=== PATIENT | male | born 1960 | race Caucasian/White ===

== ENCOUNTER 2019-12-04 13:10 | Outpatient (CLI) | payer MEDICARE, SELFPAY ==
--- NOTE | ~2019-12-04 | XR_ITS ---
EXAMINATION: XR chest 2V DATE: 12/04/2019 13:37 INDICATION: Cough. TECHNIQUE: Frontal and lateral views of the chest were obtained. COMPARISON: None. FINDINGS: The chest demonstrates clear lungs without pneumonia, pleural effusion, or pneumothorax. Th e heart size is normal. IMPRESSION: 1. No acute cardiopulmonary disease. Reviewed, dictated and finalized at location A.
== END 2019-12-04 13:11 | disposition home or self-care (01) ==
PROVIDERS: PCP Internal Medicine; Visit Provider Internal Medicine
DX: R05 Cough (principal)
CPT/HCPCS: 71046

== ENCOUNTER 2021-09-24 09:29 | Emergency (ER) | payer MEDICARE, SELFPAY ==
--- NOTE | ~2021-09-24 | XR_ITS ---
EXAMINATION: XR chest 2V DATE: 09/24/2021 10:22 INDICATION: Productive cough. TECHNIQUE: Frontal and lateral views of the chest were obtained. COMPARISON: Chest 2 views 12/04/2019 FINDINGS: There are mild airspace opacities in the mid and lower lung zones. No pleural effusion or p neumothorax. The heart size is normal. There is mild chronic anterior wedging of T12 and L1 vertebral bodies. IMPRESSION: 1. Mild airspace opacities in the mid and lower lung zones, consistent with atelectasis versus pneumo kameron. Reviewed, dictated and finalized at location A. IMPRESSION: 1. Mild airspace opacities in the mid and lower lung zones, consistent with ate lectasis versus pneumonia.
[2021-09-24 09:37] VITALS: BP 129/87; PULSE 79; RESP 18; TEMP 36.3; O2SAT 97
--- NOTE | 2021-09-24 10:38 | ED.URI ---
HPI - URI/Sore Throat General Chief Complaint: Upper Respiratory Infection Stated Complaint: Cough Time Seen by Provider: 09/24/21 10:06 Source: patient and RN notes reviewed Mode of arrival: ambulatory Limitations: no limitations History of Present Illness HPI Narrative: Patient presents today complaining of a 4-day history of productive cough with yellow sputum, nasal congestion, fatigue. Denies fever or shortness of breath. He has been using Tylenol, NyQuil, Robitussin, Flonase and Tessalon Perles with minimal relief. He has not been vaccinated against COVID-19 or influenza. He was seen at a different urgent care on day of onset of symptoms and given prescription for the Flonase and Tessalon Perles. MD elicited complaint: cough Related Data Home Medications Medication Instructions Recorded Confirmed aspirin 325 mg PO DAILY 09/24/21 09/24/21 benzonatate 200 mg PO TID PRN 09/24/21 09/24/21 brimonidine 1 drp RIGHT EYE BID 09/24/21 09/24/21 celecoxib 200 mg PO BID 09/24/21 09/24/21 fluticasone propionate 1 spray INTRANASAL BID 09/24/21 09/24/21 metoprolol succinate 100 mg PO DAILY 09/24/21 09/24/21 pravastatin 10 mg PO DAILY 09/24/21 09/24/21 timolol maleate 1 drp RIGHT EYE BID 09/24/21 09/24/21 Allergies Allergy/AdvReac Type Severity Reaction Status Date / Time No Known Allergies Allergy Verified 09/24/21 10:13 Review of Systems Review of Systems: CONSTITUTIONAL: Denies body aches, fever, chills, or sweats.+ Fatigue EYES: Denies visual changes, redness, or discharge. ENT: Denies rhinorrhea, sore throat, or otalgia.+ Congestion CARDIOVASCULAR: Denies chest pain, palpitations, or edema. RESPIRATORY: Denies dyspnea.+ Cough GASTROINTESTINAL: Denies abdominal pain, nausea, vomiting, or diarrhea. GENITOURINARY: Denies dysuria or hematuria. SKIN: Denies rash, itching, or wounds. MUSCULOSKELETAL: Denies back pain, joint pain, or myalgia. NEUROLOGIC: Denies headache, numbness, tingling, or weakness. PSYCH: Denies depression or anxiety. [facility] Past Medical History Medical History (Updated 09/24/21 @ 10:43 by Jennifer Jane, [facility], ) High cholesterol Comments At time of signature, I have reviewed and agree with nursing past medical, surgical, social and family history unless otherwise noted. Please see nursing chart for further information. There is no relevant family history pertinent to the presenting complaint Exam Narrative: GENERAL: Well-appearing, well-nourished, and in no acute distress. HEAD: Normocephalic, atraumatic. EYES: EOMI. No redness or drainage. Conjunctivae normal. ENT: Mucous membranes pink and moist. Nares clear. No rhinorrhea. TMs normal bilaterally. Throat normal. Uvula midline. NECK: Normal AROM. Supple. No lymphadenopathy. CHEST: No respiratory distress. Clear to auscultation. HEART: Regular rate and rhythm. No murmur appreciated. Normal peripheral pulses. EXTREMITIES: Normal range of motion. No edema. SKIN: Warm, dry, no rash. Capillary refill normal. Normal skin turgor. NEURO: No focal deficits. Alert and oriented x3. Gait steady. PSYCH: Normal affect. No signs of depression or anxiety. Course Course Level of Care: Express Care Visit Vital Signs Vital signs: Vital Signs Temperature 97.4 F L 09/24/21 09:37 Pulse Rate 79 09/24/21 09:37 Respiratory Rate 18 09/24/21 09:37 Blood Pressure 129/87 09/24/21 09:37 Pulse Oximetry 97 09/24/21 09:37 Temperature 97.4 F L 09/24/21 09:37 Pulse Rate 79 09/24/21 09:37 Respiratory Rate 18 09/24/21 09:37 Blood Pressure 129/87 09/24/21 09:37 Pulse Oximetry 97 09/24/21 09:37 Reviewed. Pt has been instructed to follow up with his PCP regarding his elevated blood pressure today. MDM - URI/Sore Throat Differential Diagnosis Differential diagnosis: Likely upper respiratory infection, bronchitis and other (Pneumonia) Imaging Data Radiologist's impression: ITS Impressions Chest X-Ray 09/24/21 10:22
== END 2021-09-24 10:50 | disposition home or self-care (01) ==
PROVIDERS: Emergency Provider Nurse Practitioner; PCP Internal Medicine
DX: J18.9 Pneumonia, unspecified organism (principal); E78.00 Pure hypercholesterolemia, unspecified; Z79.82 Long term (current) use of aspirin; Z28.310 Unvaccinated for COVID-19
CPT/HCPCS: 71046; 99213; G0463

== ENCOUNTER 2022-02-09 12:05 | Emergency (ER) | payer MEDICARE, SELFPAY ==
--- NOTE | ~2022-02-09 | XR_ITS ---
EXAMINATION: XR foot RT min 3V DATE: 02/09/2022 12:35 INDICATION: Right foot injury. TECHNIQUE: 4 views of right foot were obtained. COMPARISON: None. FINDINGS: There is moderate hallux valgus. No fracture. There is severe osteoarthritis of first metat arsophalangeal joint and mild osteoarthritis of talonavicular joint. There are enthesophytes at the p osterior and plantar aspects of calcaneal tuberosity. IMPRESSION: 1. Polyarticular osteoarthritis. 2. Moderate hallux valgus. Reviewed, dictated and finalized at location A.
--- NOTE | ~2022-02-09 | XR_ITS ---
EXAMINATION: XR tibia fibula RT 2V DATE: 02/09/2022 12:35 INDICATION: Right lower leg injury. TECHNIQUE: 2 views of right tibia and fibula on 4 radiographs were obtained. COMPARISON: None. FINDINGS: Bone alignment is normal. No fracture. There is moderate right knee osteoarthritis. There a re enthesophytes at the posterior and plantar aspects of calcaneal tuberosity. There is soft tissue s welling anterior to tibial diaphysis. No knee joint effusion. IMPRESSION: 1. No fracture. Reviewed, dictated and finalized at location A. IMPRESSION: 1. No fracture.
[2022-02-09 12:10] VITALS: BP 128/87; PULSE 66; RESP 20; TEMP 36.2; O2SAT 98
--- NOTE | 2022-02-09 12:11 | ED.LOWEXIN ---
HPI - Extremity Injury (Lower) General Chief Complaint: Extremity Injury, Lower Stated Complaint: Right foot and toe pain Time Seen by Provider: 02/09/22 12:12 Source: patient and RN notes reviewed History of Present Illness HPI Narrative: Patient is a 61-year-old male who presents the urgent care with complaints of right foot and right lower leg pain. Patient states her right foot pain has been ongoing for several months. States that he jammed his foot into his suitcase while getting off the escalator 5 or 6 days ago and is now having increased pain and swelling. Patient states the pain radiates up his right lower leg. Patient states pain is exacerbated with ambulation or any weightbearing. He has been taking Aleve for pain as well as icing and elevating. No other acute complaints. Denies any history of DVT, shortness of breath or chest pain. No acute distress noted. Patient aware of the plan of care. Some parts of this dictation were generated by voice recognition software and may contain typographical and/or grammatical inaccuracies. Related Data Home Medications Medication Instructions Recorded Confirmed aspirin 325 mg tablet 325 mg PO DAILY 09/24/21 02/09/22 brimonidine 0.2 % eye drops 1 drp RIGHT EYE BID 09/24/21 02/09/22 celecoxib 200 mg capsule 200 mg PO BID 09/24/21 02/09/22 fluticasone propionate 50 1 spray intranasal BID 09/24/21 02/09/22 mcg/actuation nasal spray,suspension metoprolol succinate 100 mg 100 mg PO DAILY 09/24/21 02/09/22 tablet,extended release 24 hr pravastatin 10 mg tablet 10 mg PO DAILY 09/24/21 02/09/22 timolol maleate 0.5 % eye drops 1 drp RIGHT EYE BID 09/24/21 02/09/22 Allergies Allergy/AdvReac Type Severity Reaction Status Date / Time No Known Allergies Allergy Verified 02/09/22 12:12 Review of Systems Review of Systems: CONSTITUTIONAL: Denies fever, chills, or sweats. EYES: Denies visual changes, redness, or discharge. ENT: Denies rhinorrhea, congestion, sore throat, or otalgia. CARDIOVASCULAR: Denies chest pain, palpitations, or edema. RESPIRATORY: Denies cough or dyspnea. GASTROINTESTINAL: Denies abdominal pain, nausea, vomiting, or diarrhea. GENITOURINARY: Denies dysuria or hematuria. SKIN: Denies rash or itching. MUSCULOSKELETAL: Reports of right foot and right lower leg pain NEUROLOGIC: Denies headache, numbness, or weakness. All other systems reviewed are negative, except as documented in HPI. [facility] Past Medical History Medical History (Updated 02/09/22 @ 12:45 by CELY Caba) High cholesterol Comments At the time of my signature, I reviewed and agree with the nursing past medical, surgical, social, and family history. There is no relevant family history pertinent to the patient complaint. Exam Narrative: GENERAL: This is a well-nourished, well-developed patient, in no apparent distress. HEAD: normocephalic, atraumatic. EYES: PERRL. Sclera clear/white. Vision is grossly intact. EARS: External ears normal NOSE: External nose normal with no obvious nasal discharge, nares without redness, no rhinorrhea. THROAT: Mucous membranes moist NECK: Neck supple CARDIOVASCULAR: Regular rate and rhythm without murmurs, gallops, or rubs. SKIN: warm, intact with no suspicious lesions or rash, good texture and turgor. NEURO: awake, alert, and oriented to person, place and time. There were no obvious focal neurologic abnormalities. EXTREMITIES: Mild localized tenderness with a 2 cm mildly edematous hematoma to the right tibia. Mild 1+ pitting edema to right lower extremity with moderate pain to the MCP without erythema or obvious deformity. Positive strong right pedal pulse with capillary refill less than 2 seconds. Course Course Level of Care: Express Care Visit Vital Signs Vital signs: Vital Signs Temperature 97.1 F L 02/09/22 12:10 Pulse Rate 66 02/09/22 12:10 Respiratory Rate 20 02/09/22 12:10 Blood Pressure 128/87 02/09/22 12:10 Pulse Ox
== END 2022-02-09 12:51 | disposition home or self-care (01) ==
PROVIDERS: Emergency Provider Nurse Practitioner Family
DX: M19.071 Primary osteoarthritis, right ankle and foot (principal); E78.00 Pure hypercholesterolemia, unspecified
CPT/HCPCS: 73590; 73630; 99214; G0463

== ENCOUNTER 2023-03-08 15:15 | Emergency (ER) | payer MEDICARE, SELFPAY ==
--- NOTE | ~2023-03-08 | XR_ITS ---
EXAMINATION: XR shoulder RT min 2V INDICATION: Right shoulder pain TECHNIQUE: Four views of the right shoulder are submitted. COMPARISON: None FINDINGS: Normal alignment. No fracture. There is moderate glenohumeral and acromioclavicular joint o steoarthritis. Soft tissues are unremarkable. IMPRESSION: 1. Osteoarthritis without acute osseous abnormality. Reviewed, dictated and finalized at location B.
[2023-03-08 15:28] VITALS: BP 130/76; PULSE 40; RESP 16; TEMP 36.2; O2SAT 98
--- NOTE | 2023-03-08 16:26 | ED.GENADULT ---
HPI - General Adult General Chief complaint: Extremity Injury, Upper Stated complaint: Right Shoulder Pain Time Seen by Provider: 03/08/23 15:55 Source: patient, RN notes reviewed and old records reviewed Mode of arrival: ambulatory Limitations: no limitations History of Present Illness HPI narrative: 62 year old male presents to [facility] with stated complaints of tingling and pain to the right arm radiating to his hand but for the past 1 to 1.5 weeks he has been having pain increase with pain in shoulder down arm and also to his right neck with intermittent tingling. Patient denies any recent or past trauma to right arm or shoulder.Patient has full ROM of his right shoulder and arm with strong pulses of his right arm and brisk capillary refill to his nail beds of right hand. Patient noted to have low pulse rate in 40's is on beta aleksandar. MD complaint: right shoulder pain Onset (ago): week(s) (increased discomfort for past 1.5 weeks.) Location: head (right shoulder and arm and right side of neck), right and upper extremity (shoulder and arm, ) Severity scale (1-10): 5 Quality: aching Pain Consistency: intermittent Treatments prior to arrival: other (tylenol and local pain rubs) Related Data Home Medications Medication Instructions Recorded Confirmed aspirin 325 mg tablet 325 mg PO DAILY 09/24/21 02/09/22 brimonidine 0.2 % eye drops 1 drp RIGHT EYE BID 09/24/21 02/09/22 celecoxib 200 mg capsule 200 mg PO BID 09/24/21 02/09/22 metoprolol succinate 100 mg 100 mg PO DAILY 09/24/21 02/09/22 tablet,extended release 24 hr pravastatin 10 mg tablet 10 mg PO DAILY 09/24/21 02/09/22 timolol maleate 0.5 % eye drops 1 drp RIGHT EYE BID 09/24/21 02/09/22 amlodipine 5 mg tablet mg 03/08/23 Allergies Allergy/AdvReac Type Severity Reaction Status Date / Time No Known Allergies Allergy Verified 02/09/22 12:12 Review of Systems Review of Systems: CONSTITUTIONAL: Denies fever, chills, or sweats. EYES: Denies visual changes, redness, or discharge. ENT: Denies rhinorrhea, congestion, sore throat, or otalgia. CARDIOVASCULAR: Denies chest pain, palpitations, or edema.low pulse rate noted. RESPIRATORY: Denies cough or dyspnea. GASTROINTESTINAL: Denies abdominal pain, nausea, vomiting, or diarrhea. GENITOURINARY: Denies dysuria or hematuria. SKIN: Denies rash or itching. MUSCULOSKELETAL: Denies back pain,positive for right shoulder and arm pain and pain to right side of neck at times, or myalgia. NEUROLOGIC: Denies headache, numbness, or weakness. PSYCHIATRIC: Denies anxiety or depression. All systems reviewed & are unremarkable except as noted in HPI and below PMFSH Past Medical History Medical History (Updated 03/09/23 @ 20:58 by Asya Cabrera NP) Arthritis COVID-19 03/2021 Glaucoma High cholesterol Hypertension Surgical History Surgical History (Updated 03/09/23 @ 20:53 by Asya Cabrera NP) H/O lumbosacral spine surgery Hx of appendectomy Social History Social History (Updated 03/09/23 @ 20:58 by Asya Cabrera NP) Smoking status: Never smoker Alcohol intake: current Alcohol use details: social Substance use type: does not use Gender identity (if verbalized by the patient): Male Comments At time of signature, agree with nursing past medical, surgical, social and family history. There is no relevant family history pertinent to the presenting complaint Exam Narrative: GENERAL: Well-appearing, well-nourished, obese,and in no acute distress. HEAD: Normocephalic, atraumatic. EYES: PERRLA and EOMI. ENT: Nares clear, no rhinorrhea or epistaxis. Mucous membranes moist.TM's normal with good light reflex, throat pink with no swelling NECK: Supple. able to move neck in all directions, no lymphadenopathy CHEST: Clear to auscultation. No respiratory distress. SAO2 98% on room air HEART: Regular rate and rhythm. No murmur heard. Normal peripheral pulses. Bradycardia ABDOMEN: Soft, nontender, n
== END 2023-03-08 16:48 | disposition home or self-care (01) ==
PROVIDERS: Emergency Provider Registered Nurse; PCP Internal Medicine
DX: M19.011 Primary osteoarthritis, right shoulder (principal); H40.9 Unspecified glaucoma; E78.00 Pure hypercholesterolemia, unspecified; I10 Essential (primary) hypertension; Z86.16 Personal history of COVID-19
CPT/HCPCS: 73030; 99213; G0463

== ENCOUNTER 2024-06-18 12:38 | Emergency (ER) | payer MEDICARE, SELFPAY ==
--- NOTE | ~2024-06-18 | XR_ITS ---
EXAMINATION: XR tibia fibula RT 2V DATE: 06/18/2024 13:26 INDICATION: Right lower leg pain post fall TECHNIQUE: AP and lateral views of the right lower leg were obtained on overlapping proximal and dist al images. COMPARISON: None. FINDINGS: Bone alignment is normal. No fracture. Tricompartmental osteoarthritis at the right knee at least mod erate severity lateral compartment although severity could be underestimated on nonweightbearing imag ing. Additional mild polyarticular osteoarthritis at the right ankle, mid and hindfoot. Small plantar calcaneal spur. Small enthesopathic ossicle at the distal Achilles tendon. No right knee or ankle alona int effusion. Focal soft tissue swelling anterior to the mid tibia. IMPRESSION: 1. No acute osseous abnormality. Reviewed, dictated and finalized at location A. ONARY FELLOW
[2024-06-18 12:47] VITALS: BP 153/93; PULSE 79; RESP 20; TEMP 36.7; O2SAT 98
--- NOTE | 2024-06-18 13:16 | ED_ITS ---
HPI - Extremity Injury (Lower) General Chief Complaint: Extremity Injury, Lower Stated Complaint: right calf popped History of Present Illness HPI Narrative: patient is a 63-year-old male, past medical history significant for hypertension hyperlipidemia, presents to [facility] with right calf bruising that extends along the medial anterior lopez, following an injury he sustained 8 days ago when he tripped over an uneven surface. He states he felt a pop in the medial aspect of the lopez at the time of the injury however use since developed bruising that extends posteriorly along the back of calf. He takes a baby aspirin daily, no other anticoagulants are reported. He has no significant pain, denies difficulty flexing or dorsiflexing his foot. He has no pain at the Achilles insertion he denies any additional associated symptoms or modifying factors. Related Data Home Medications ?Medication ?Instructions ?Recorded ?Confirmed ?Last Taken ?Type aspirin 325 mg tablet 325 mg PO DAILY 09/24/21 02/09/22 Unknown History celecoxib 200 mg capsule 200 mg PO BID 09/24/21 02/09/22 Unknown History metoprolol succinate 100 mg 100 mg PO DAILY 09/24/21 02/09/22 Unknown History tablet,extended release 24 hr pravastatin 10 mg tablet 10 mg PO DAILY 09/24/21 02/09/22 Unknown History amlodipine 5 mg tablet mg 03/08/23 Unknown History Allergies Allergy/AdvReac Type Severity Reaction Status Date / Time No Known Allergies Allergy Verified 06/18/24 13:44 Review of Systems Musculoskeletal: Comments: refer to HPI Integumentary/Breasts: Comments: refer to HPI PMFSH Past Medical History Medical History (Updated 06/18/24 @ 13:57 by CELY Magaña) COVID-19 03/2021 Arthritis Glaucoma Hypertension High cholesterol Surgical History Surgical History (Updated 03/09/23 @ 20:53 by Asya Cabrera NP) H/O lumbosacral spine surgery Hx of appendectomy Social History Social History (Updated 03/09/23 @ 20:58 by Asya Cabrera NP) Smoking status: Never smoker Alcohol intake: current Alcohol use details: social Substance use type: does not use Gender identity (if verbalized by the patient): Male Exam Const: General: healthy appearing and no acute distress Nutritional Appearance: well nourished Orientation/consciousness: patient oriented x3 Limitations: no limitations HENMT: Head: normal to inspection Ears: external ears normal Face/Nose/Sinus: Normal external nose present Mouth: Yes Normal oral and palatal mucosa present, Yes lip normal and Yes moist mucous membranes Teeth and gingiva: dentition normal Throat: posterior oropharynx normal and uvula midline Eyes: Conjunctivae: conjunctivae normal Pupils: Equal, round and reactive pupils present EOM: EOMs intact bilaterally Direct Ophthalmoscopy: no photophobia Neck: Neck: normal visual inspection, no lymphadenopathy and no meningeal signs Resp: Effort & Inspection: normal respiratory effort Auscultation: clear to auscultation bilaterally Cardio: Rate: regular rate Rhythm: regular rhythm Back/Spine/Pelvis: Back: no CVA tenderness Skin: General skin exam: normal color Rashes: no rashes Wounds: no wounds Neuro: General: patient oriented x3, moves all extremities, no meningeal signs, no focal motor deficits and CN's II-XI intact bilaterally Cranial nerves: Yes Nystagmus not present Speech: normal speech Gait exam (Neuro): Normal gait present Extrem: General: no clubbing, cyanosis or edema and no pedal edema Other: patient has ecchymosis to the right posterior medial calf, purple in color, no palpable cords or asymmetry to the lower extremities. Patient's Achilles insertion is nontender palpation, dorsiflexion and plantar flexion of the right foot is intact Psych: Mental Status: mental status grossly normal Course Course Emergency Course: PLAIN FILMS ARE UNREMARKABLE FOR ACUTE FINDINGS, CHRONIC CHANGES are noted patient is advised a plan to treat with rest, ice, elevation, wrap with an hector wrap or compression sock, may take NSAIDs, may continue ASA, ER if calf pain or swelling increase, or with any concerns condition is worsening. Patient verbalized understanding he is agreeable plan Level of Care: Express Care Visit ([id number]) Vital Signs Vital signs: Vital Signs Temperature 36.7 C 06/18/24 12:47 Pulse Rate 79 06/18/24 12:47 Respiratory Rate 20 06/18/24 12:47 Blood Pressure 153/93 H 06/18/24 12:47 Pulse Oximetry 98 06/18/24 12:47 Oxygen Delivery Room Air 06/18/24 12:47 Temperature 36.7 C 06/18/24 12:47 Pulse Rate 79 06/18/24 12:47 Respiratory Rate 20 12/29/24 12:47 Blood Pressure 153/93 H 06/18/24 12:47 Pulse Oximetry 98 06/18/24 12:47 Oxygen Delivery Room Air 06/18/24 12:47 MDM - Extremity Injury (Lower) MDM Narrative Medical decision making narrative: negative plain films, pt advised his calf is bruised and likely related to a small focal muscle tear as he has no gross asymmetry of the lower extremities and the bruising is superficial and more medial and anterior to the lopez. He is encouraged to follow-up with his PCP, to treat conservatively in the meantime and to proceed to the ER if the area worsens for a venous duplex, as indicated. Patient verbalized understanding he is agreeable with discharge plan of care Discharge Plan Discharge Clinical Impression: Contusion of right calf Patient Disposition: Home, Self-Care Condition: Stable Instructions: Antibiotic Form, Contusion in Adults (ED) Additional Instructions: rest, ice, elevate the leg, you may wrap with a compression stocking or Hector bandage knee, you may take Tylenol and/or ibuprofen as directed [id number], you may continue home medications and follow up with your primary doctor in 3 days if symptoms not improving, ER if condition worsens, calf pain or swelling increase with any further emergency concerns Patient Language: French Prescriptions: No Action celecoxib 200 mg capsule 200 mg PO BID metoprolol succinate 100 mg tablet extended release 24 hr 100 mg PO DAILY pravastatin 10 mg tablet 10 mg PO DAILY aspirin 325 mg Tablet 325 mg PO DAILY amlodipine 5 mg tablet Follow-up/Referrals: UNKNOWN,DOCTOR [Primary Care Provider] - Time of Disposition: 13:57
--- OUTSIDE RECORDS SUMMARY | 2024-06-25 13:55 | XMS_ITS | Encounter Summary ---
Author Organization [facility] Address [address] [place] [address] Phone Care Team Providers Care Copy Clerk Name Role Phone Wendi Hawkins MD Primary Care Provider Encounter Details Date Type Department Care Team (Late st Contact Info) Description 12/29/2022 Telephone [facility] Neuro Sleep [address] [place] [address] Abdon Eisenberg, RPSGT Social History Tobacco Use Types Packs/Day Years Used Date Smoking Tobacco: Never Smokeless Tobacco: Never Alcohol Use Standard Drinks/Week Comments Yes 0 (1 standard drink = 0.6 oz pur e alcohol) AUDIT-C Answer Date Recorded Q1: How often do you have a drink containing alcohol? 4 or more times a week 04/07/2022 Q2: How many drinks containi ng alcohol do you have on a typical day when you are drinking? 1 or 2 Q3: How often do you have si x or more drinks on one occasion? 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 Gender Identity Not on file Sexual Orientation Not on file documented as of this encounter Miscellaneous Notes * Telephone Encounter - Abdon Eisenberg, RPSGT - 12/29/2022 4:47 PM CDT Calling to discuss issues patient is having with mask documented in this encounter Plan of Treatment Scheduled Procedures Name Priority Associated Diagnoses Date/Ti me COLONOSCOPY Colon cancer screening COLONOSCOPY Colon cancer screening documented as of this encounter Visit Diagnoses Not on filedocumented in this encounter Care Teams Copy Clerk Relationship Specialty Start Date End Date Wendi Hawkins MD [address] [place] [address] PCP - General Internal Medicine 09/05/21 04/27/23 documented as of this encounter
--- OUTSIDE RECORDS SUMMARY | 2024-06-25 13:55 | XMS_ITS | Clinical Summary ---
Author Organization [facility] Address [address] [place] [address] Phone Care Team Providers Care Braider Tender Name Role Phone Pal Russell MD Primary Care Provider [phone] Social History Tobacco Use Types Packs/Day Years Used Date Smoking Tobacco: Never Assessed Sex and Gender Information Value Date Recorded Sex Assigned at Not on file Legal Sex Male 10:43 PM CDT Gender Identity Not on file Sexual Orientation Not on file Plan of Treatment Health Maintenance Due Date Last Done Comments Hepatitis C Virus (HCV) Screening 1960 TdaP Immunization 1960 Colonoscopy 09/16/2004 Colorectal Cancer Screening 09/16/2004 Cologuard 09/16/2009 Immunochemical Fecal Occult Blood 09/16/2009 Zoster Immunization (1 of 2) 09/16/2009 SARS-COV-2 Immunization ( season) 2023 Influenza Immunization (Seas on Ended) 2024 PSA Discussion Completed 07/27/2017 Hepatitis B Immunization Aged Out No longer eligible based on patient's age to complete this topic Meningococcal Immunization (ACWY) Aged Out No longer eligible based on patient's age to complete this topic Pneumococcal Immunization Combined Aged Out No longer eligible based on patient's age to complete this topic Rotavirus Immunization Aged Out No lo nger eligible based on patient's age to complete this topic Procedures Procedure Name Priority Date/Time Associated Diagnosis Comments PSA DIAGNOSTIC,TOTAL Routine 07/27/2017 5:20 PM HOME SPECIALIST Exertional angina (HCC) from Last 3 Months or Most Recently Relevant to Health Maintenance Results * PSA DIAGNOSTIC,TOTAL (07/27/2017 5:20 PM HOME SPECIALIST) PSA, TOTAL (PROSTATIC SPECIFIC ANTIGEN) 0.58 0.00 - 4.00 ng/mL 07/27/2017 6:06 PM HOME SPECIALIST [facility] Blood specimen (specimen) Venipuncture / Unknown 07/27/2017 5:20 PM HOME SPECIALIST 07/27/2017 5:25 PM HOME SPECIALIST Narrative [facility] - 07/27/2017 6:06 PM HOME SPECIALIST PSA NOTE: The PSA value should be used in conjunction with information available from clinical evaluation and other diagnostic procedures. us Pal Russell MD CHEMISTRY ORDERABLES Final Res ult [facility] [address] [place] [address] from Last 3 Months or Most Recently Relevant to Health Maintenance Insurance MEDICARE Care Teams Braider Tender Relationship Specialty Start Date End Date Pal Russell MD [address] [place] [address] PCP - General Internal Medicine 07/27/17
--- OUTSIDE RECORDS SUMMARY | 2024-06-25 13:55 | XMS_ITS | Encounter Summary ---
Author Organization [facility] Address [address] [place] [address] Phone Care Team Providers Care Enrollment Advisor Name Role Phone Kelin Collier NP Primary Care Pro vider Reason for Visit * Reason Comments Establish Care Encounter Details Date Type Department Care Team (Latest Contact Info) Description 05/03/2023 11:00 AM LOKIE ENGINEER Office Visit [facility] [address] [place] [address] Kelin Collier, BLANCA [address] [place] [address] Encounter for Medicare annual wellness exam (Primary Dx); Environmental allergies; Pure hypercholesterolemia; Benign essential HTN; Osteoarthritis of first metatarsophalangeal (MTP) joint of right foot; Colon cancer screening Social History Tobacco Use Types Packs/Day Years Used Date Smoking Tobacco: Never Smokeless Tobacco: Never Tobacco Cessation:Counseling Given: Not Answered Alcohol Use Standard Drinks/Week Comments Yes 0 [...] on file Legal Sex Male 2:28 AM LOKIE ENGINEER Gender Identity Not on file Sexual Orientation Not on file documented as of this encounter Last Filed Vital Signs Vital Sign Reading Time Taken Comments Blood Pressure 125/83 05/03/2023 11:11 AM LOKIE ENGINEER Pulse 68 05/03/2023 11:11 AM LOKIE ENGINEER Temperature 36.3 ??C (97.3 ??F) 05/03/2023 11:[address] Respiratory Rate - - Oxygen Saturation 96% 05/03/2023 11:11 AM LOKIE ENGINEER Inhaled Oxygen Concentration - - Weight 108 kg (238 lb) 05/03/2023 11:11 AM LOKIE ENGINEER Height 172.7 cm (5' 8 ) 05/03/2023 11:11 AM LOKIE ENGINEER Body Mass Index 36.19 05/03/2023 11:11 AM LOKIE ENGINEER documented in this encounter Ordered Prescriptions Prescription Sig Dispense Quantity Refills Last Filled Start Date End Date celecoxib (CeleBREX) 200 mg capsule Take 1 capsule (200 mg total) by mouth 2 (two) times a day 180 capsule 3 3 ipratropium (ATROVENT) 21 mcg (0.03 %) nasal sprayIndications:Environ mental allergies Administer 2 sprays into each nostril every 12 (twelve) hours 30 mL 1 3 rosuvastatin (CRESTOR) 10 mg tabletIndications:Pure hypercholesterolemia Take 1 tablet (10 mg total) by mouth daily 30 tablet 3 05/18/20 23 metoprolol XL (TOPROL-XL) 100 mg 24 hr tabletIndications:Benign essential HTN Take 1 tablet (100 mg total) by mouth daily 90 tablet 3 3 02/24/20 24 amLODIPine (NORVASC) 5 mg tabletIndications:Benign essential HTN Take 1 tablet (5 mg total) by mouth daily 90 tablet 3 3 05/05/20 24 documented in this encounter Progress Notes * Kelin Collier NP - 05/03/2023 11:00 AM CST Subjective: Chief Complaint: Sean Ritter is an 62 y.o. male here for an annual wellness visit. Patient Care Team: Kelin Collier NP as PCP - General (Nurse Practitioner) HPI: Reports feeling well since the last visit. The diet is reported to be healthy with adequate fruits and vegetables. Lean proteins are favored. Exercise is regular. They are driving with no accidents or problems in the past year. There have been no recent falls. Lives independently with help available. Sinus drainage: daily sinus drainage. Has been using Astelin intermittently. That is HTN: Medications are reported to be taken regularly and tolerated well without adverse effects. There is no chest pain, pressure, or discomfort. Denies headaches, dizziness, and visual changes. Therehas been no opportunity to check a blood pressure since the last visit. There is no new edema. Smoking: none Exercise: light activity Alcohol: social drinker Diet: heart healthy Dentition: needs to see Sexual Activity: active with female partner Illicit Drugs: none Seatbelt Use: always Texting while driving: rare Sunscreen use: needs improvement Guns in the home: none Past Medical History: Diagnosis Date Arthritis Headache Old myocardial infarction History of non-ST elevation myocardial infarction (NSTEMI) - (Added by PATI Conv) Past Surgical History: Procedure Laterality Date BACK SURGERY AR APPENDECTOMY Appendectomy - (Added by PATI Conv) Family History Problem Relation Age of Onset Heart attack Brother Heart disease Mother Arthritis Mother Hypertension Mother Arthritis Father Current Outpatient Medications Medication Sig Dispense Refill aspirin 81 mg chewable tablet Take 1 tablet (81 mg total) by mouth daily cyclobenzaprine (FLEXERIL) 10 mg tablet TAKE 1 TABLET BY MOUTH THREE TIMES DAILY NEEDED FOR MUSCLE SPASMS 30 tablet 0 timolol (TIMOPTIC) 0.5 % ophthalmic solution INSTILL 1 DROP INTO RIGHT EYE TWICE DAILY traMADoL (ULTRAM) 50 mg tablet Take 1 tablet (50 mg total) by mouth every 6 (six) hours 30 tablet 1 traZODone (DESYREL) 50 mg tablet 1 tablet by mouth at bedtime 30 tablet 5 amLODIPine (NORVASC) 5 mg tablet Take 1 tablet (5 mg total) by mouth daily 90 tablet 3 celecoxib (CeleBREX) 200 mg capsule Take 1 capsule (200 mg total) by mouth 2 (two) times a day 180 capsule 3 ipratropium (ATROVENT) 21 mcg (0.03 %) nasal spray Administer 2 sprays into each nostril every 12 (twelve) hours 30 mL 1 metoprolol XL (TOPROL-XL) 100 mg 24 hr tablet Take 1 tablet (100 mg total) by mouth daily 90 tablet3 rosuvastatin (CRESTOR) 10 mg tablet Take 1 tablet (10 mg total) by mouth daily 30 tablet 0 No current facility-administered medications for this visit. Review of Systems All other systems reviewed and are negative. Objective: Vital Signs: BP 125/83 (BP Location: Right arm, Patient Position: Sitting) Pulse 68 Temp 36.3 ??C (97.3 ??F) Ht 172.7 cm (5' 8 ) Wt 108 kg (238 lb) SpO2 96% BMI 36.19 kg/m?? No results found. Physical Exam Vitals reviewed. Constitutional: Appearance: He is well-developed. HENT: Head: Normocephalic and atraumatic. Right Ear: External ear normal. Left Ear: External ear normal. Eyes: Conjunctiva/sclera: Conjunctivae normal. Pupils: Pupils are equal, round, and reactive to light. Cardiovascular: Rate and Rhythm: Normal rate and regular rhythm. Heart sounds: Normal heart sounds. Pulmonary: Effort: Pulmonary effort is normal. Breath sounds: Normal breath sounds. Abdominal: General: Bowel sounds are normal. Palpations: Abdomen is soft. Musculoskeletal: General: Normal range of motion. Cervical back: Normal range of motion and neck supple. Skin: General: Skin is warm and dry. Capillary Refill: Capillary refill takes less than 2 seconds. Neurological: Mental Status: He is alert and oriented to person, place, and time. Assessment and Plan: Diagnoses and all orders for this visit: Encounter for Medicare annual wellness exam (Primary) - Hemoglobin A1c; Future - Lipid panel; Future - Comprehensive metabolic panel; Future - CBC with auto differential; Future Environmental allergies - ipratropium (ATROVENT) 21 mcg (0.03 %) nasal spray; Administer 2 sprays into each nostril every 12 (twelve) hours Pure hypercholesterolemia - rosuvastatin (CRESTOR) 10 mg tablet; Take 1 tablet (10 mg total) by mouth daily Benign essential HTN - amLODIPine (NORVASC) 5 mg tablet; Take 1 tablet (5 mg total) by mouth daily - metoprolol XL (TOPROL-XL) 100 mg 24 hr tablet; Take 1 tablet (100 mg total) by mouth daily Osteoarthritis of first metatarsophalangeal (MTP) joint of right foot Colon cancer screening - Direct Scheduling Case Request: COLONOSCOPY Other orders - celecoxib (CeleBREX) 200 mg capsule; Take 1 capsule (200 mg total) by mouth 2 (two) times a day Wellness: Influenza: Discussed. Encouraged Annual Flu Shot. Tetanus: Tetanus vaccination status reviewed: Next TDaP due: 2027 COLON CANCER SCREEN: Last: NEVER Result: Next: begged him to please schedule. Orders placed again. BONE HEALTH: Encouraged adequate Vitamin D and Calcium intake as well as weight bearing exercises. DIABETES SCREENING TESTS: Discussed. All medications were discussed. Use and possible adverse effects were reviewed. We discussed red flag symptoms and when to seek emergency treatment. The patient verbalized understanding and agreement. The patient was encouraged to reach out to this provider with any further needs or questions. The patient presented today for an annual wellness visit. This procedure was completed. In addition, counselling has been provided to maintain a healthy lifestyle through fitness, diet, rest, resilience, prevention/reduction and safety. Immunization status was reviewed and addressed. Today, the patient presented with additional active problems which were separately tended to. The result of this evaluation and management are outlined above. Things look good but each of these issues contributed to separate additional evaluation and management. Annual Wellness Visit in one year is encouraged to be scheduled. The following health maintenance schedule was reviewed with the patient and provided in printed form in the after visit summary: Health Maintenance Topic Date Due Colon Cancer Screening-Colonoscopy Never done Zoster Vaccine (1 of 2) Never done Pneumococcal vaccine <65 (2 - PCV) 03/14/2016 Depression Screening-PHQ 10/28/2022 Influenza Vaccine (1) 02/19/2023 Prostate Cancer Screening-PSA 10/29/2023 Regular Well Visit/Exam 18-64 05/03/2024 DTaP/Tdap/Td Vaccine (2 - Td or Tdap) 09/28/2027 Hepatitis C Screening Completed E ENGINEER documented in this encounter Plan of Treatment Scheduled Procedures Name Priority Associated Diagnoses Date/Ti me COLONOSCOPY Colon cancer screening COLONOSCOPY Colon cancer screening documented as of this encounter Procedures Procedure Name Priority Date/Time Associated Diagnosis Comments CBC WITH AUTO DIFFERENTIAL Routine 05/03/2023 11:27 AM LOKIE ENGINEER Encounter for Medicare annual wellness exam HEMOGLOBIN A1C Routine 05/03/2023 11:27 AM LOKIE ENGINEER Encounter for Medicare annual wellness exam LIPID PANEL Routine 05/03/2023 11:27 AM LOKIE ENGINEER Encounter for Medicare annual wellness exam COMPREHENSIVE METABOLIC PANEL Routine 05/03/2023 11:27 AM LOKIE ENGINEER Encounter for Medicare annual wellness exam documented in this encounter Results * (ABNORMAL) CBC with auto differential (05/03/2023 11:27 AM LOKIE ENGINEER) Pathologist [facility] WBC 8.0 3.5 - 10.0 K/uL [facility] RBC 4.52(L) 4.60 - 6.20 M/uL [facility] Hemoglobin 13.6(L) 13.9 - 17.7 g/dL [facility] Hematocrit 38.8 35.0 - 55.0 % [facility] MCV 86.0 75.0 - 100.0 fL [facility] MCH 30.20 25.00 - 35.00 pg [facility] MCHC 35.10 31.00 - 38.00 g/dL [facility] RDW 12.7 11.0 - 16.0 % [facility] Platelets 195 140 - 400 K/uL [facility] MPV 8.3 8.0 - 11.0 fL [facility] Granulocyte, Absolute 5.2 1.2 - 8.0 K/uL [facility] Lymphocyte, Absolute 2.1 0.5 - 5.0 K/uL [facility] Monocyte, Absolute 0.7 0.1 - 1.5 K/uL [facility] Granulocyte, Percentage 66.0 35.0 - 80.0 % [facility] Lymphocyte, Percentage 27.1 15.0 - 50.0 % [facility] Monocyte, Percentage 6.9 2.0 - 15.0 % [facility] Blood 05/03/2023 11:2 7 AM LOKIE ENGINEER 05/03/2023 11:33 AM LOKIE ENGINEER us Kelin Collier DATA ENTRY COORDINATOR LAB BLOOD ORDERAB LES Final Result [facility] [address] [place] [address] * (ABNORMAL) Comprehensive metabolic panel (05/03/2023 11:27 AM LOKIE ENGINEER) Glucose 107 74 - 200 mg/dL [facility] BUN 19 18 - 23 mg/dL [facility] Creatinine 0.9 0.7 - 1.3 mg/dL [facility] eGFR 84 mL/min/1.7 3m2 [facility] BUN/Creat Ratio 21 Ratio [facility] Bilirubin, Total 0.4 0.0 - 1.2 mg/dL [facility] AST (SGOT) 18 0 - 40 U/L [facility] ALT (SGPT) 29 10 - 50 U/L [facility] Alkaline phosphatase 73 40 - 129 U/L [facility] Calcium 9.0 8.8 - 10.2 mg/dL [facility] Sodium 142 136 - 145 mEq/L [facility] Potassium 4.6 3.5 - 5.1 mEq/L [facility] Chloride 107 98 - 107 mEq/L [facility] CO2 27.3 22.0 - 29.0 mEq/L [facility] Anion Gap 7 3 - 12 mEq/L [facility] Total Protein 6.1(L) 6.6 - 8.7 g/dL [facility] Albumin 4.0 3.5 - 5.2 g/dL [facility] Globulin 2.0 g/dL [facility] Albumin/Globulin 2.0 Ratio [facility] Blood 05/03/2023 11:2 7 AM LOKIE ENGINEER 05/03/2023 11:33 AM LOKIE ENGINEER Kelin Collier DATA ENTRY COORDINATOR LAB BLOOD ORDERAB LES Final Result Performing Organization Address City/State/[facility] Co de Phone Number [facility] [address] [place] [address] * Lipid panel (05/03/2023 11:27 AM LOKIE ENGINEER) Triglyceride 111 0 - 150 mg/dL [facility] Cholesterol 135 0 - 200 mg/dL [facility] HDL 38 >35 mg/dL [facility] LDL-Calculated 75 mg/dL [facility] CHOL/HDL Risk Ratio 4 Ratio [facility] LDL/HDL Risk Ratio 2 Ratio [facility] Blood 05/03/2023 11:2 7 AM LOKIE ENGINEER 05/03/2023 11:33 AM LOKIE ENGINEER Kelin Collier NP LAB BLOOD ORDERAB LES Final Result Performing Organization Address [facility] Co de Phone Number [facility] [address] [place] [address] * Hemoglobin A1c (05/03/2023 11:27 AM LOKIE ENGINEER) HBA1C 6.2 5.0 - 6.3 % [facility] Comment: Interpretive Comment: Normal: ? 4.5 - 5.6 Pre-Diabetes: 5.7 - 6.4 Diabetes is: ??6.5 Ranges based on ADA Guidelines Blood 05/03/2023 11:2 7 AM LOKIE ENGINEER 05/03/2023 11:33 AM LOKIE ENGINEER Kelin Collier NP LAB BLOOD ORDERAB LES Final Result Performing Organization Address [facility] Co de Phone Number [facility] [address] [place] [address] documented in this encounter Visit Diagnoses Diagnosis Encounter for Medicare annual wellness exam- Primary Environmental allergies Other allergy, other than to medicinal agents Pure hypercholesterolemia Benign essential HTN Osteoarthritis of first metatarsophalangeal (MTP) joint of right foot Colon cancer screening Special screening for malignant neoplasms, colon documented in this encounter Discontinued Medications Medication Sig Discontinue Reason Start Date End Da te azelastine (ASTELIN) 137 mcg (0.1 %) nasal sprayIndications:Seasonal allergic rhinitis due to pollen USE 1 SPRAY(S) IN EACH NOSTRIL TWICE DAILY DIRECTED 01/05/2023 05/03/2023 benzonatate (TESSALON) 200 mg capsule TAKE 1 CAPSULE BY MOUTH UP TO THREE TIMES DAILY NEEDED FOR COUGH 09/20/2021 05/03/2023 brimonidine (ALPHAGAN) 0.2 % ophthalmic solution INSTILL 1 DROP INTO RIGHT EYE TWICE DAILY 09/24/2021 05/03/2023 celecoxib (CeleBREX) 200 mg capsule Take 1 capsule by mouth twice daily Reorder 01/05/2023 05/03/2023 amLODIPine (NORVASC) 5 mg tablet Take 1 tablet by mouth once daily Reorder 01/26/2023 05/03/2023 metoprolol XL (TOPROL-XL) 100 mg 24 hr tablet Take 1 tablet by mouth once daily Reorder 02/09/2023 05/03/2023 rosuvastatin (CRESTOR) 10 mg tabletIndications:Pure hypercholesterolemia Take 1 tablet (10 mg total) by mouth daily Reorder 04/20/2023 05/03/2023 documented as of this encounter Orders Case Request Count Last Ordered Date First Orde red Date GI DIRECT ACCESS CASE REQUEST 1 05/03/2023 documented in this encounter Care Teams Enrollment Advisor Relationship Specialty Start Date End Date Kelin Collier NP PCP - General Nurse Practitioner 04/28/23 documented as of this encounter
--- OUTSIDE RECORDS SUMMARY | 2024-06-25 13:55 | XMS_ITS | Clinical Summary ---
Author Organization [facility] [employer] Address [address] [place] [address] Care Team Providers Care Supervisor Ride Assembly Name Role Phone Pal Russell MD Primary Care Provider [phone] Source Comments [facility] [employer],non-owned Affiliates and Associated Physician Practices is amultiple site organization consisting of ambulatory clinics and hospital sitesin [place], [place], [place] and [place]. This disclosure is being madepursuant to the Care Everywhere program and may not contain all information available regarding this patient. Last updated 18.[facility] [employer] Allergies No known active allergies Medications * Be aware that medications may not be up to date on this document. Alwaysverify current medications with the patient. Medication Sig Dispensed Refills Start Date End Date Status PRAVASTATIN SODIUM PO Active aspirin (ASPIRIN) 325 MG tablet Take 325 mg by mouth once daily Active LISINOPRIL PO Active albuterol HFA (PROVENTIL;VENTOLIN; PROAIR) 108 (90 BASE) MCG/ACT inhalerIndications:A cute bronchitis, unspecified organism Inhale 2 puffs by mouth every 4 hours as needed for Shortness of Breath, Wheezing or Cough 1 Inhaler 06/16/2018 Active benzonatate (TESSALON) 100 MG capsuleIndications:A cute bronchitis, unspecified organism Take 1 capsule by mouth 3 times daily as needed for Cough 15 capsule 06/16/2018 Active Social History Tobacco Use Types Packs/Day Years Used Date Smoking Tobacco: Never Smokeless Tobacco: Never Tobacco Cessation:Counseling Given: Yes Sex and Gender Information Value Date Recorded Sex Assigned at Not on file Gender Identity Not on file Sexual Orientation Not on file Last Filed Vital Signs Vital Sign Reading Time Taken Comments Blood Pressure 134/80 06/16/2018 11:28 AM DIELECTRIC TESTING MACHINE OPERATOR Pulse 109 06/16/2018 11:28 AM DIELECTRIC TESTING MACHINE OPERATOR Temperature 37.3 ??C (99.2 ??F) 06/16/2018 11:[address] Respiratory Rate - - Oxygen Saturation 98% 06/16/2018 11:28 AM DIELECTRIC TESTING MACHINE OPERATOR Inhaled Oxygen Concentration - - Weight 93 kg (205 lb) 06/16/2018 11:28 AM DIELECTRIC TESTING MACHINE OPERATOR Height 172.7 cm (5' 8 ) 06/16/2018 11:28 AM DIELECTRIC TESTING MACHINE OPERATOR Body Mass Index 31.17 06/16/2018 11:28 AM DIELECTRIC TESTING MACHINE OPERATOR Plan of Treatment Health Maintenance Due Date Last Done Comments COLOGUARD (AGES 45-75) - COL ON CA SCREENING 1959 COLON MONITORING 1959 COLONOSCOPY - COLON CA SCREENING 1959 CT COLONOGRAPHY - COLON CA SCREENING 1959 Colorectal Cancer Screening 1959 FIT - COLON CA SCREENING 1959 FLEX SIG - COLON CA SCREENING 1959 MEDICARE AWV ? 12 MONTHS 1959 HIV SCREENING 09/16/1974 HEPATITIS C SCREENING 09/12/1977 DTAP/TDAP/TD VACCINES (1 - Tdap) 09/16/1978 ZOSTER VACCINE (1 of 2) 09/16/2009 SCREENING FOR DIABETES 06/16/2018 DEPRESSION SCREENING 06/21/2023 COVID-19 VACCINE ( - 2023-2 5 season) 2024 INFLUENZA VACCINE (#1) 2024 Respiratory Syncytial Virus (RSV) Vaccine Pt: or over 60 yrs (1 - 1-dose 75+ series) 09/16/2034 HEPATITIS B VACCINE Aged Out No longe r eligible based on patient's age to complete this topic HIB VACCINE Aged Out No longer eligi ble based on patient's age to complete this topic HPV VACCINE Aged Out No longer eligi ble based on patient's age to complete this topic MENINGOCOCCAL VACCINE Aged Out No tatyana arelis eligible based on patient's age to complete this topic PNEUMOCOCCAL VACCINE Aged Out No long er eligible based on patient's age to complete this topic Care Teams Supervisor Ride Assembly Relationship Specialty Start Date End Date Pal Russell MD PCP - General Internal Medicine 06/16/18
--- OUTSIDE RECORDS SUMMARY | 2024-06-25 13:55 | XMS_ITS | Encounter Summary ---
Author Organization [facility] Address [address] [place] [address] Phone Care Team Providers Care Lace Finisher Name Role Phone Wendi Hawkins MD Primary Care Provider Encounter Details Date Type Department Care Team (Late st Contact Info) Description 12/24/2022 Telephone [facility] Neuro Sleep [address] [place] [address] Pedro Rodriguez Social History Tobacco Use Types Packs/Day Years [...] on file Legal Sex Male 2:28 AM SHINGLE CUTTER Gender Identity Not on file Sexual Orientation Not on file documented as of this encounter Miscellaneous Notes * Telephone Encounter - Pedro Rodriguez - 12/24/2022 10:54 AM CDT Mr. Ritter says his mask is too tight and it hurts. He complains of the pressure that builds up because of how tight it is. He says the mask blows off his face and he is constantly messing with it at night. What are the best options for Mr. Ritter? documented in this encounter Plan of Treatment Scheduled Procedures Name Priority Associated Diagnoses Date/Ti me COLONOSCOPY Colon cancer screening COLONOSCOPY Colon cancer screening documented as of this encounter Visit Diagnoses Not on filedocumented in this encounter Care Teams Lace Finisher Relationship Specialty Start Date End Date Wendi Hawkins MD [address] [place] [address] PCP - General Internal Medicine 09/05/21 04/27/23 documented as of this encounter
--- OUTSIDE RECORDS SUMMARY | 2024-06-25 13:55 | XMS_ITS | Encounter Summary ---
Author Organization [facility] Address [address] [place] [address] Care Team Providers Care Industrial Fabric Cutter Name Role Phone Pal Russell MD Primary Care Provider [phone] Reason for Visit * Reason Comments Congestion Headache Ear Problem Encounter Details Date Type Department Care Team (Late st Contact Info) Description 06/16/2018 11:00 AM RN RADIATION Office Visit [facility] AT [address] [id number] [facility] Acute maxillary sinusitis, recurrence not specified (Primary Dx); Acute bronchitis, unspecified organism Social History Tobacco Use Types Packs/Day Years Used Date Smoking Tobacco: Never Smokeless Tobacco: Never Tobacco Cessation:Counseling Given: Yes Sex and Gender Information Value Date Recorded Sex Assigned at Not on file Gender Identity Not on file Sexual Orientation Not on file documented as of this encounter Last Filed Vital Signs Vital Sign Reading Time Taken Comments Blood Pressure 134/80 06/16/2018 11:28 AM RN RADIATION Pulse 109 06/16/2018 11:28 AM RN RADIATION Temperature 37.3 ??C (99.2 ??F) 06/16/2018 11:[address] Respiratory Rate - - Oxygen Saturation 98% 06/16/2018 11:28 AM RN RADIATION Inhaled Oxygen Concentration - - Weight 93 kg (205 lb) 06/16/2018 11:28 AM RN RADIATION Height 172.7 cm (5' 8 ) 06/16/2018 11:28 AM RN RADIATION Body Mass Index 31.17 06/16/2018 11:28 AM RN RADIATION documented in this encounter Patient Instructions * Patient Instructions* Libia Matthews APRN-JUDICIAL REGISTRAR - 06/16/2018 11:47 AM RN RADIATION Images from the original note were not included. Use your inhaler every 4 hours as needed for cough that won't stop, wheezing, or shortness of breath. If inhaler is needed more often, you need to go to an ER. Humidified air to home Avoid irritants such as cigarette smoke, pollen, dust, etc as this will aggravate bronchitis. Follow up with Pal Russell MD if symptoms worsen or do not completely resolve If your symptoms start to improve, then worsen again, please follow up with your PCP, Urgent Care, or ER for further evaluation. CALL 911 OR GO TO ER WITH ANY WORSENING OF SYMPTOMS INCLUDING, BUT NOT LIMITED TO: HIGH FEVERS, DIFFICULTY BREATHING OR CATCHING YOUR BREATH, INCREASED WORK OF BREATHING, OR SHORTNESS OF BREATH. GO TO EMERGENCY ROOM OR CALL 911 WITH ANY OF THE FOLLOWING SYMPTOMS: HIGH, PERSISTENT FEVER >102; SWELLING OF THE FACE, SWELLING, INFLAMMATION, OR REDNESS AROUND EYES, ABNORMAL EYE MOVEMENTS, VISION CHANGES (DOUBLE VISION OR IMPAIRED VISION); SEVERE HEADACHE; ALTERED MENTAL STATUS. THESE ARE SIGNS OF A RARE, BUT SERIOUS COMPLICATION AND REQUIRES IMMEDIATE EMERGENCY ATTENTION. Sinusitis HOTEL ATTENDANT: Sinusitis is inflammation or infection of your sinuses. It is most often caused by a virus. Acute sinusitis may last up to 12 weeks. Chronic sinusitis lasts longer than 12 weeks. Recurrent sinusitis means you have 4 or more times in 1 year. Common symptoms include the following: ?? Fever ?? Pain, pressure, redness, or swelling around the forehead, cheeks, or eyes ?? Thick yellow or green discharge from your nose ?? Tenderness when you touch your face over your sinuses ?? Dry cough that happens mostly at night or when you lie down ?? Headache and face pain that is worse when you lean forward ?? Tooth pain, or pain when you chew Seek care immediately if: ?? Your eye and eyelid are red, swollen, and painful. ?? You cannot open your eye. ?? You have vision changes, such as double vision. ?? Your eyeball bulges out or you cannot move your eye. ?? You are more sleepy than normal, or you notice changes in your ability to think, move, or talk. ?? You have a stiff neck, a fever, or a bad headache. ?? You have swelling of your forehead or scalp. Contact your healthcare provider if: ?? Your symptoms do not improve after 3 days. ?? Your symptoms do not go away after 10 days. ?? You have nausea and are vomiting. ?? Your nose is bleeding. ?? You have questions or concerns about your condition or care. Treatment for sinusitis: Your symptoms may go away on their own. Your healthcare provider may recommend watchful waiting for up to 10 days before starting antibiotics. You may need any of the following: ?? Acetaminophen decreases pain and fever. It is available without a doctor's order. Ask how much to take and how often to take it. Follow directions. Read the labels of all other medicines you are using to see if they also contain acetaminophen, or ask your doctor or pharmacist. Acetaminophen can cause liver damage if not taken correctly. Do not use more than 4 grams (4,000 milligrams) total of acetaminophen in one day. ?? NSAIDs , such as ibuprofen, help decrease swelling, pain, and fever. This medicine is available with or without a doctor's order. NSAIDs can cause stomach bleeding or kidney problems in certain people. If you take blood thinner medicine, always ask your healthcare provider if NSAIDs are safe foryou. Always read the medicine label and follow directions. ?? Nasal steroid sprays may help decrease inflammation in your nose and sinuses. ?? Decongestants help reduce swelling and drain mucus in the nose and sinuses. They may help you breathe easier. ?? Antihistamines help dry mucus in the nose and relieve sneezing. ?? Antibiotics help treat or prevent a bacterial infection. ?? Take your medicine as directed. Contact your healthcare provider if you think your medicine is not helping or if you have side effects. Tell him or her if you are allergic to any medicine. Keep a list of the medicines, vitamins, and herbs you take. Include the amounts, and when and why you take them. Bring the list or the pill bottles to follow-up visits. Carry your medicine list with you in case of an emergency. Self-care: ?? Rinse your sinuses. Use a sinus rinse device to rinse your nasal passages with a saline (salt water) solution or distilled water. Do not use tap water. This will help thin the mucus in your nose and rinse away pollen and dirt. It will also help reduce swelling so you can breathe normally. Ask your healthcare provider how often to do this. ?? Breathe in steam. Heat a bowl of water until you see steam. Lean over the bowl and make a tent over your head with a large towel. Breathe deeply for about 20 minutes. Be careful not to get too close to the steam or burn yourself. Do this 3 times a day. You can also breathe deeply when you take ahot shower. ?? Sleep with your head elevated. Place an extra pillow under your head before you go to sleep to help your sinuses drain. ?? Drink liquids as directed. Ask your healthcare provider how much liquid to drink each day and which liquids are best for you. Liquids will thin the mucus in your nose and help it drain. Avoid drinks that contain alcohol or caffeine. ?? Do not smoke, and avoid secondhand smoke. Nicotine and other chemicals in cigarettes and cigars can make your symptoms worse. Ask your healthcare provider for information if you currently smoke and need help to quit. E-cigarettes or smokeless tobacco still contain nicotine. Talk to your healthcare provider before you use these products. Prevent the spread of germs that cause sinusitis: Wash your hands often with soap and water. Wash your hands after you use the bathroom, change a child's diaper, or sneeze. Wash your hands before youprepare or eat food. Follow up with your healthcare provider as directed: You may be referred to an ear, nose, and throat specialist. Write down your questions so you remember to ask them during your visits. ?? Copyright [employer] 2018 Information is for End User's use only and may not be sold, redistributed or otherwise used for commercial purposes. All illustrations and images included in CareNotes?? are the copyrighted property of [employer]. or [employer] The above information is an educational administration teacher only. It is not intended as medical advice for individual conditions or treatments. Talk to your doctor, nurse or pharmacist before following any medical regimen to see if it is safe and effective for you. Acute Bronchitis HOTEL ATTENDANT: Acute bronchitis is swelling and irritation in the air passages of your lungs. This irritation may cause you to cough or have other breathing problems. Acute bronchitis often starts because of another illness, such as a cold or the flu. The illness spreads from your nose and throat to your windpipeand airways. Bronchitis is often called a chest cold. Acute bronchitis lasts about 3 to 6 weeks andis usually not a serious illness. Your cough can last for several weeks. You may have any of the following symptoms: ?? A cough with sputum that may be clear, yellow, or green ?? Feeling more tired than usual, and body aches ?? A fever and chills ?? Wheezing when you breathe ?? A tight chest or pain when you breathe or cough Seek care immediately if: ?? You cough up blood. ?? Your lips or fingernails turn blue. ?? You feel like you are not getting enough air when you breathe. Contact your healthcare provider if: ?? You have a fever. ?? Your breathing problems do not go away or get worse. ?? Your cough does not get better within 4 weeks. ?? You have questions or concerns about your condition or care. Self-care: ?? Get more rest. Rest helps your body to heal. Slowly start to do more each day. Rest when you feel it is needed. ?? Avoid irritants in the air. Avoid chemicals, fumes, and dust. Wear a face mask if you must work around dust or fumes. Stay inside on days when air pollution levels are high. If you have allergies,stay inside when pollen counts are high. Do not use aerosol products, such as spray-on deodorant, bug spray, and hair spray. ?? Do not smoke or be around others who smoke. Nicotine and other chemicals in cigarettes and cigars damages the cilia that move mucus out of your lungs. Ask your healthcare provider for information if you currently smoke and need help to quit. E-cigarettes or smokeless tobacco still contain nicotine. Talk to your healthcare provider before you use these products. ?? Drink liquids as directed. Liquids help keep your air passages moist and help you cough up mucus. You may need to drink more liquids when you have acute bronchitis. Ask how much liquid to drink each day and which liquids are best for you. ?? Use a humidifier or vaporizer. Use a cool mist humidifier or a vaporizer to increase air moisture in your home. This may make it easier for you to breathe and help decrease your cough. Prevent acute bronchitis by doing the following: ?? Get the vaccinations you need. Ask your healthcare provider if you should get vaccinated againstthe flu or pneumonia. ?? Prevent the spread of germs. You can decrease your risk of acute bronchitis and other illnesses by doing the following: ?? Wash your hands often with soap and water. Carry germ-killing hand lotion or gel with you. You can use the lotion or gel to clean your hands when soap and water are not available. ?? Do not touch your eyes, nose, or mouth unless you have washed your hands first. ?? Always cover your mouth when you cough to prevent the spread of germs. It is best to cough into a tissue or your shirt sleeve instead of into your hand. Ask those around you cover their mouths when they cough. ?? Try to avoid people who have a cold or the flu. If you are sick, stay away from others as much as possible. Medicines: Your healthcare provider may give you any of the following: ?? Ibuprofen or acetaminophen are medicines that help lower your fever. They are available without a doctor's order. Ask your healthcare provider which medicine is right for you. Ask how much to takeand how often to take it. Follow directions. These medicines can cause stomach bleeding if not taken correctly. Ibuprofen can cause kidney damage. Do not take ibuprofen if you have kidney disease, anulcer, or allergies to aspirin. Acetaminophen can cause liver damage. Do not take more than 4,000 milligrams in 24 hours. ?? Decongestants help loosen mucus in your lungs and make it easier to cough up. This can help you breathe easier. ?? Cough suppressants decrease your urge to cough. If your cough produces mucus, do not take a cough suppressant unless your healthcare provider tells you to. Your healthcare provider may suggest that you take a cough suppressant at night so you can rest. ?? Inhalers may be given. Your healthcare provider may give you one or more inhalers to help you breathe easier and cough less. An inhaler gives your medicine to open your airways. Ask your healthcare provider to show you how to use your inhaler correctly. Follow up with your healthcare provider as directed: Write down questions you have so you will remember to ask them during your follow-up visits. ?? Copyright [employer] 2017 Information is for End User's use only and may not be sold, redistributed or otherwise used for commercial purposes. All illustrations and images included in CareNotes?? are the copyrighted property of [employer]. or [employer] The above information is an educational administration teacher only. It is not intended as medical advice for individual conditions or treatments. Talk to your doctor, nurse or pharmacist before following any medical regimen to see if it is safe and effective for you. RADIATION documented in this encounter Progress Notes * Libia Matthews APRN-CNP - 06/16/2018 11:32 AM CST Subjective: Sean Ritter is a 57 y.o. male who presents to clinic today for Chief Complaint Patient presents with ??? Congestion ??? Headache ??? Ear Problem Sean Ritter is here for evaluation of hoarseness, sore throat, cough- productive- clear/yellow sputum, sinus pressure. Patient also has some episodes of feeling dizzy when he has coughing fits. He does not feel dizzy when he is not coughing. his PCP is Pal Russell MD. He states the Onset was: 1 week ago and course is unchanged. He is drinking moderate amounts of fluids. OTC- tylenol. Sick Contacts: none. Past Medical History: Diagnosis Date ??? Blindness of left eye ??? Hyperlipidemia ??? Hypertension ??? TGA (transient global amnesia) No family history on file. Current Outpatient Prescriptions Medication Sig Dispense Refill ??? PRAVASTATIN SODIUM PO ??? aspirin (ASPIRIN) 325 MG tablet Take 325 mg by mouth once daily ??? LISINOPRIL PO ??? albuterol HFA (PROVENTIL;VENTOLIN;PROAIR) 108 (90 BASE) MCG/ACT inhaler Inhale 2 puffs by mouthevery 4 hours as needed for Shortness of Breath, Wheezing or Cough 1 Inhaler 0 ??? benzonatate (TESSALON) 100 MG capsule Take 1 capsule by mouth 3 times daily as needed for Cough15 capsule 0 ??? amoxicillin-clavulanate (AUGMENTIN) 875-125 MG tablet Take 1 tablet by mouth 2 times daily withmorning and evening meal for 7 days 14 tablet 0 No current facility-administered medications for this visit. No Known Allergies Social History Social History ??? Marital status: Spouse name: N/A ??? Number of children: N/A ??? Years of education: N/A Occupational History ??? Not on file. Social History Main Topics ??? Smoking status: Never Smoker ??? Smokeless tobacco: Never Used ??? Alcohol use Not on file ??? Drug use: Not on file ??? Sexual activity: Not on file Other Topics Concern ??? Not on file Social History Narrative ??? No narrative on file Review of Systems Pertinent items are noted in HPI Constitutional: Negative for fevers. Positive for chills and fatigue Eyes: Negative Ears, nose, mouth, and throat: Positive for sinus trouble, congestion, sore throat, hoarseness Respiratory: Positive for acute cough. Occasional shortness of breath and dizziness with coughing fits. No wheezing. Cardiovascular: Negative for chest pain, palpitations, arm pain. Hematologic/lymphatic: Negative Neurological: Positive for headaches Objective: BP 134/80 Pulse 109 Temp 99.2 ??F (37.3 ??C) (Oral) Ht 1.727 m (5' 8 ) Wt 93 kg (205 lb) SpO2 98% BMI 31.17 kg/m2 General appearance: alert, cooperative, no distress, oriented to person, place, and time Head: normocephalic, without trauma Eyes: sclera and conjunctiva clear Ears: canals clear, tympanic membranes cloudy, no bulging or erythema to TMs. hearing intact to voice Nose: mucosa erythematous and swollen, purulent rhinorrhea, maxillary tenderness bilaterally Throat: mild oropharyngeal erythema. Tonsils unremarkable. Uvula midline. No exudates. Neck: supple Nodes: no cervical adenopathy Lungs: breath sounds symmetric; no rales or crackles. Forced expiratory wheeze present with coughing. Heart: regular rhythm, normal S1 and S2, without murmurs, gallops or rubs. Mild tachycardia. Neurologic: mental status normal Assessment: Encounter Diagnoses Name Primary? Acute maxillary sinusitis, recurrence not specified Yes ??? Acute bronchitis, unspecified organism Plan: If dizziness continues or if patient develops any chest pain- patient is to go to ER or call 911. Discussed in length with patient that if he does not improve within 1-2 days he should be re-evaluated by an UC, PCP, or ER. Patient verbalized understanding of plan of care. Use your inhaler every 4 hours as needed for cough that won't stop, wheezing, or shortness of breath. If inhaler is needed more often, you need to go to an ER. Your cough may linger for weeks, but should be getting less severe and less frequent. Humidified air to home Avoid irritants such as cigarette smoke, pollen, dust, etc as this will aggravate bronchitis. Drink plenty of fluids to help thin secretions. May take Tylenol for fever or pain as directed per package instructions Recommend daily use of OTC intranasal saline irrigation per package instructions Recommend daily use of Flonase or similar nasal spray for inflamed nasal passages, as directed per package instructions. Must use consistently. May take 10-12 days to notice results. Use after nasal saline irrigations for best results. Reviewed education materials and instructions with patient and answered all questions. Sean Stone verbalized understanding and agrees with plan. Follow up with Pal Russell MD if symptoms worsen or do not completely resolve. GO TO EMERGENCY ROOM OR CALL 911 WITH ANY OF THE FOLLOWING SYMPTOMS: HIGH, PERSISTENT FEVER >102; SWELLING OF THE FACE, INFLAMMATION, OR REDNESS AROUND EYES, ABNORMAL EYE MOVEMENTS, VISION CHANGES(DOUBLE VISION OR IMPAIRED VISION); SEVERE HEADACHE; ALTERED MENTAL STATUS. THESE ARE SIGNS OF A RARE, BUT SERIOUS COMPLICATION AND REQUIRES IMMEDIATE EMERGENCY ATTENTION. CALL 911 OR GO TO ER WITH ANY WORSENING OF SYMPTOMS INCLUDING, BUT NOT LIMITED TO: HIGH FEVERS, DIFFICULTY BREATHING OR CATCHING YOUR BREATH, INCREASED WORK OF BREATHING, OR SHORTNESS OF BREATH. Orders Placed This Encounter ??? albuterol HFA (PROVENTIL;VENTOLIN;PROAIR) 108 (90 BASE) MCG/ACT inhaler Sig: Inhale 2 puffs by mouth every 4 hours as needed for Shortness of Breath, Wheezing or Cough Dispense: 1 Inhaler Refill: 0 ??? benzonatate (TESSALON) 100 MG capsule Sig: Take 1 capsule by mouth 3 times daily as needed for Cough Dispense: 15 capsule Refill: 0 ??? amoxicillin-clavulanate (AUGMENTIN) 875-125 MG tablet Sig: Take 1 tablet by mouth 2 times daily with morning and evening meal for 7 days Dispense: 14 tablet Refill: 0 CHRISTOPHER Paniagua 06/16/2018 12:36 PM RADIATION documented in this encounter Plan of Treatment Not on file documented as of this encounter Visit Diagnoses Diagnosis Acute maxillary sinusitis, recurrence not specified- Primary Acute bronchitis, unspecified organism documented in this encounter Care Teams Industrial Fabric Cutter Relationship Specialty Start Date End Date Pal Russell MD PCP - General Internal Medicine 06/16/18 documented as of this encounter
--- OUTSIDE RECORDS SUMMARY | 2024-06-25 13:55 | XMS_ITS | Encounter Summary ---
Author Organization [facility] Healthcare Address [address] [place] [id number] Care Team Providers Care Scouring Train Operator Name Role Phone Kelin Collier NP Primary Care Pro vider Reason for Visit * Reason Onset Date Comments GI Preprocedure 05/18/2023 Encounter Details Date Type Department Care Team (Late st Contact Info) Description 05/18/2023 Telephone [facility] Specialty Services [address] [place] [phone] ySlvie Rich RN GI Preprocedure Social History Tobacco Use Types Packs/Day Years [...] on file Legal Sex Male 2:28 AM RN DOCUMENTATION Gender Identity Not on file Sexual Orientation Not on file documented as of this encounter Miscellaneous Notes * Telephone Encounter - Lisa Moran MA - 05/18/2023 2:42 PM CST Patient was not ready to schedule,letter sent DOCUMENTATION * Telephone Encounter - Sylvie Rich RN - 05/18/2023 12:44 PM RN DOCUMENTATION [place] team rapid review Ok to schedule [place] [facility] [place] Ok to schedule at [facility] Yes Prefers a certain location No DOCUMENTATION documented in this encounter Plan of Treatment Scheduled Procedures Name Priority Associated Diagnoses Date/Ti me COLONOSCOPY Colon cancer screening COLONOSCOPY Colon cancer screening documented as of this encounter Visit Diagnoses Not on filedocumented in this encounter Care Teams Scouring Train Operator Relationship Specialty Start Date End Date Kelin Collier NP PCP - General Nurse Practitioner 04/28/23 documented as of this encounter
--- OUTSIDE RECORDS SUMMARY | 2024-06-25 13:55 | XMS_ITS | Encounter Summary ---
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 Gender Identity Not on file Sexual Orientation Not on file documented as of this encounter Ordered Prescriptions Prescription Sig Dispense Quantity Refills Last Filled Start Date End Date traZODone (DESYREL) 50 mg tabletIndications: insomnia associated with depression 1 tablet by mouth at bedtime 30 tablet 5 04/21/2023 documented in this encounter Plan of Treatment Scheduled Procedures Name Priority Associated Diagnoses Date/Ti me COLONOSCOPY Colon cancer screening COLONOSCOPY Colon cancer screening documented as of this encounter Visit Diagnoses Not on filedocumented in this encounter Discontinued Medications Medication Sig Discontinue Reason Start Date End Da te traZODone (DESYREL) 50 mg tablet TAKE 1 TABLET BY MOUTH NIGHTLY NEEDED SLEEP Reorder 07/14/2022 04/21/2023 documented as of this encounter Care Teams Resource Economist Relationship Specialty Start Date End Date Wendi Hawkins MD [address] [place] [address] PCP - General Internal Medicine 09/05/21 04/27/23 documented as of this encounter
--- OUTSIDE RECORDS SUMMARY | 2024-06-25 13:55 | XMS_ITS | Encounter Summary ---
Author Organization [facility] Address [address] [place] [address] Phone Care Team Providers Care Electric Blanket Packer Name Role Phone Wendi Hawkins MD Primary Care Provider Reason for Visit * Reason Onset Date Comments DME order 12/23/2022 Encounter Details Date Type Department Care Team (Late st Contact Info) Description 12/23/2022 Telephone [facility] Neuro Sleep [address] 6th [address] [place] [address] Jessica Elaine RN DME order Social History Tobacco Use Types Packs/Day Years [...] on file Legal 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 -------Fax Transmission Report------- To: Recipient at [phone] Subject: DME order Result: The transmission was successful. Explanation: All Pages Ok Pages Sent: 2 Connect Time: 1 minutes, 17 seconds Transmit Time: 12/23/2022 07:53 Transfer Rate: 9600 Status Code: 0000 Retry Count: 0 Job Id: [id number] Unique Id: [id number] Fax Line: 19 Fax Properties Supervisor: [id number] * Telephone Encounter - Jessica Elaine RN - 12/23/2022 7:52 AM CDT ----- Message from VASYL Farias sent at 12/23/2022 6:55 AM CDT ----- See new dme order Thank you documented in this encounter Plan of Treatment Scheduled Procedures Name Priority Associated Diagnoses Date/Ti nc COLONOSCOPY Colon cancer screening COLONOSCOPY Colon cancer screening documented as of this encounter Visit Diagnoses Not on filedocumented in this encounter Care Teams Electric Blanket Packer Relationship Specialty Start Date End Date Wendi Hawkins MD [address] [place] [address] PCP - General Internal Medicine 09/05/21 04/27/23 documented as of this encounter
--- OUTSIDE RECORDS SUMMARY | 2024-06-25 13:55 | XMS_ITS | Referral Summary ---
Author Organization [facility] Address [address] [place] [id number] Care Team Providers Care Dye Lab Technician Name Role Phone Kelin Collier NP Primary Care Pro vider Allergies No known active allergies Medications timolol (TIMOPTIC) 0.5 % ophthalmic solution INSTILL 1 DROP INTO RIGHT EYE TWICE DAILY 09/25/19 22 Active aspirin 81 mg chewable tablet Take 1 tablet (81 mg total) by mouth daily Active traMADoL (ULTRAM) 50 mg tablet Take 1 tablet (50 mg total) by mouth every 6 (six) hours 30 tablet 1 12/05/19 22 Active cyclobenzaprine (FLEXERIL) 10 mg tablet TAKE 1 TABLET BY MOUTH THREE TIMES DAILY NEEDED FOR MUSCLE SPASMS 30 tablet 07/13/19 23 Active traZODone (DESYREL) 50 mg tabletIndications:insom kameron associated with depression 1 tablet by mouth at bedtime 30 tablet 5 04/21/20 23 Active ipratropium (ATROVENT) 21 mcg (0.03 %) nasal sprayIndications:Enviro nmental allergies Administer 2 sprays into each nostril every 12 (twelve) hours 30 mL 1 05/03/20 23 Active celecoxib (CeleBREX) 200 mg capsule Take 1 capsule (200 mg total) by mouth 2 (two) times a day 180 capsule 3 05/03/20 23 Active azelastine (ASTELIN) 137 mcg (0.1 %) nasal sprayIndications:Season al allergic rhinitis due to pollen USE 1 SPRAY(S) IN EACH NOSTRIL TWICE DAILY DIRECTED 30 mL 05/28/20 23 Active metoprolol XL (TOPROL-XL) 100 mg 24 hr tabletIndications:Benig n essential HTN Take 1 tablet by mouth once daily 90 tablet 02/24/20 24 Active rosuvastatin (CRESTOR) 10 mg tabletIndications:Pure hypercholesterolemia Take 1 tablet by mouth once daily 90 tablet 03/15/20 24 Active amLODIPine (NORVASC) 5 mg tabletIndications:Benig n essential HTN Take 1 tablet (5 mg total) by mouth daily 30 tablet 05/05/20 24 Active Active Problems Problem Noted Date Diagnosed Date 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 Medicare annual wellness visit, subsequent 10/28 Assessment & Plan (10/28/2021 10:17 AM CDT): - Depression screen: PHQ Screening PHQ-2 Total Score (If total score is 3 or more points, staff should administer the PHQ-9): 0 - A1c: screen today - Lipids: screen today - AAA screening: not needed - Colon cancer screening: refer for cscope - Prostate ca screening: Benefits and risks discussed. Pt elects to be screned - Lung cancer screening: not needed - HIV: screen today - HCV: screen today - Other STI: not needed - Influenza: rec - Td/Tdap: utd 2018 - PPSV23: utd - PCV13: not needed - Shingrix: rec - COVID: has not had. Recommended Routine health maintenance objectives discussed including need for healthy diet and physical activity and orders placed for any outstanding screening studies as noted. Physical exam performed as above.Routine annual labs, if needed, have been ordered and will be reviewed with patient when results available. Traumatic tear of left rotator cuff 06/27/2020 Overview (06/27/2020): Positive lift off and Neer Assessment & Plan (01/11/2022 8:22 PM CDT): Suspect that he reinjured his shoulder. Rec that he follow-up with ortho. In the meantime, can take cyclobenzaprine 10mg tid prn, celebrex 200mg bid prn for pain, tramadol 50mg q6h prn for pain (prescribed by Dr. Fregoso) Assessment & Plan (07/10/2020 11:00 AM RUBBER INSULATOR): Still symptomatic and has a shoulder eval planned 2 Assessment & Plan (06/27/2020 10:56 AM RUBBER INSULATOR): Check US and refer straight to ortho Benign essential HTN 02/12/2020 Assessment & Plan (04/07/2022 9:45 PM CDT): BP above goal <130/80. - Current medication regimen: cont amlodipine 5mg every day, metoprolol XL 100mg every day - asked pt to send home Bps. - Counseled regarding lifestyle measures to control HTN including low salt diet rich in fruits and vegetables, limiting alcohol use, regular exercise, and weight loss of 5-10% if pt is obese. Assessment & Plan (01/11/2022 8:15 PM CDT): BP above goal <130/80. - Current medication regimen: cont amlodipine 5mg every day, metoprolol XL 100mg every day - asked pt to send home Bps. - Counseled regarding lifestyle measures to control HTN including low salt diet rich in fruits and vegetables, limiting alcohol use, regular exercise, and weight loss of 5-10% if pt is obese. Assessment & Plan (07/10/2020 11:01 AM RUBBER INSULATOR): We saw a huge spike RIVKA and we increased both meds and he tolerates and they are working. Because he is getting a sleep eval and if Rx started, the BP willlikely further decrease so no increase in meds, he will con to check BP at [facility] Assessment & Plan (06/27/2020 10:50 AM RUBBER INSULATOR): Very sub optimal I am very concerned is untreated severe LUIS F is to blame We will refer to see if a candidate for the inspire Also up both bp meds Assessment & Plan (02/12/2020 2:05 PM CDT): We are giving a trial of metop and norvasc since 01/29 to see if this helps the cough and it seems to be helping fro here we will go to metoprolol XL 50 Allergic rhinitis 02/12/2020 Overview (02/12/2020): Seems primarily sinus mediated and could be strongly contributing to cough singulair +flonase Assessment & Plan (04/07/2022 9:48 PM CDT): Stop nasal triamcinolone and flonase, start azelastine nasal spray plus Zyrtec 10mg every day Assessment & Plan (06/27/2020 10:51 AM RUBBER INSULATOR): Refill both, he actually not on singulair but needs this +nasacort Assessment & Plan (02/12/2020 2:07 PM CDT): Add steroid nasal inhaler Obesity with body mass index 30 or greater 08/12 Increased body mass index (BMI) 06/02/2016 Assessment & Plan (04/07/2022 9:51 PM CDT): Discussed diet changes and exercise Cervical radiculopathy 12/27/2015 Overview (02/12/2020): Failed the shots, the patient is on celebrex Assessment & Plan (10/18/2019 8:55 PM CDT): Significant DJD and needed injection and now on chronic NSAID w/ good effect Check the labs and refill Assessment & Plan (07/27/2018 3:10 PM RUBBER INSULATOR): We will back up here and send for plain XR and refer to PMR The jaw may be TMJ check skull series Obstructive sleep apnea syndrome in adult 2014 Overview (09/30/2017): Description: obstructive and central treated with APAP 4-4, but non compliance an issue so I begged him to get back to sleep [facility] Assessment & Plan (04/07/2022 9:46 PM CDT): He needs to follow-up with sleep medicine. Assessment & Plan (01/11/2022 8:21 PM CDT): rec that he follow-up with sleep medicine for follow-up PSG. Assessment & Plan (07/10/2020 10:59 AM RUBBER INSULATOR): Await repeat analysis 07/22 Assessment & Plan (06/27/2020 10:46 AM RUBBER INSULATOR): We will refer and see if a candidate for the inspire Assessment & Plan (02/12/2020 2:00 PM CDT): Never got back in follow up for the CPAP, and reprots not tolerating This now long standing untreated condition could be behind a lot of the excessive fatigue and the elevation of the BP Intermittent claudication 01/09/2015 Hyperlipidemia 01/06/2015 Assessment & Plan (04/07/2022 9:46 PM CDT): Lab Results Component Value Date CHOL 226 (H) 10/20/2019 Lab Results Component Value Date HDL 48 10/28/2021 HDL 54 10/20/2019 Lab Results Component Value Date LDLCALC 163 10/28/2021 LDL 146 (H) 10/20/2019 Lab Results Component Value Date TRIG 143 10/28/2021 TRIG 132 10/20/2019 TRIG 128 03/30/2016 - cont rosuvastatin 10mg every day, need to recheck at next appt Assessment & Plan (01/11/2022 8:18 PM CDT): Lab Results Component Value Date CHOL 226 (H) 10/20/2019 Lab Results Component Value Date HDL 48 10/28/2021 HDL 54 10/20/2019 Lab Results Component Value Date LDLCALC 163 10/28/2021 LDL 146 (H) 10/20/2019 Lab Results Component Value Date TRIG 143 10/28/2021 TRIG 132 10/20/2019 TRIG 128 03/30/2016 - stop pravastatin, start rosuvastatin 10mg every day Assessment & Plan (10/18/2019 8:54 PM CDT): Check LDL and CMP Chronic coronary artery disease 01/06/2015 Overview (09/30/2017): Description: this was in 2007 and was hospitalized at the . Dr Kay did the LHC: 40%LAD and 30% RCA and LCx with slower flow in RCA. -->med management Impression: the left arm seems very much a discogenic problem but with this hx, ekg and stress echo also needed Assessment & Plan (04/07/2022 9:47 PM CDT): Non obstructive. [facility] in 2007 showed 40% CAD in LAD and 30% in RCA and LCx with slow flow in RCA. - Cont medication management with ASA 81mg every day, rosuvastatin 10mg every day Assessment & Plan (01/11/2022 8:18 PM CDT): [facility] in 2007 showed 40% CAD in LAD and 30% in RCA and LCx with slow flow in RCA. - Cont medication management with ASA 81mg every day, consider changing to high intensity statin pending lipid panel. 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 - Coordination of Home care services and follow-up with specialist appointments confirmed. - Instructions have been provided to and reviewed with the patient/pediatric acute care unit nurse prior to discharge. Cough 11/07/2019 01/11/2022 Overview (11/07/2019): This may be reflux Assessment & Plan (11/07/2019 6:51 PM CDT): He does taker a lot of coffee and ETOH We will get a CXR and give A trial of Prilosec as a therapeutic trial Sensation of chest tightness 06/02/2016 07/10/2020 Left ventricular diastolic dysfunction 03/12/2015 01/11/2022 Facial pain 01/09/2015 01/11/2022 Daytime somnolence 01/09/2015 Cough 01/09/2015 01/11/2022 Overview (02/12/2020): I am suspicious the move to the [facility] has triggered a reaction Also the BYRON-I could be suspect Assessment & Plan (10/18/2019 9:00 PM CDT): Will give a course of singulair 10 Exercise-induced angina (CMS/HCC) 01/09/2015 01/11/2022 Chronic low back pain 01/06/20152021 Immunizations Name Administration Dates Next Due Flucelvax Influenza Quad 05/03/2019 Influenza, Quadrivalent, Delores l Culture-based MDCK, Preservative Free, Antibiotic Free, Intramuscular 05/03/2019 Influenza, Quadrivalent, Rec ombinant, Egg Free, Preservative Free, Intramuscular 04/07/2022 Influenza, Trivalent, Split, Preservative Free, Intradermal 03/30/2016 Pneumococcal Polysaccharide PPV23 03/14/2015, Tdap 09/27/2017 Social History Tobacco Use Types Packs/Day Years [...] on file Legal Sex Male 2:28 AM RUBBER INSULATOR Gender Identity Not on file Sexual Orientation Not on file Last Filed Vital Signs Vital Sign Reading Time Taken Comments Blood Pressure 125/83 05/03/2023 11:11 AM RUBBER INSULATOR Pulse 68 05/03/2023 11:11 AM RUBBER INSULATOR Temperature 36.3 ??C (97.3 ??F) 05/03/2023 11:[address] Respiratory Rate 16 03/23/2022 11:27 AM CDT Oxygen Saturation 96% 05/03/2023 11:11 AM RUBBER INSULATOR Inhaled Oxygen Concentration - - Weight 108 kg (238 lb) 05/03/2023 11:11 AM RUBBER INSULATOR Height 172.7 cm (5' 8 ) 05/03/2023 11:11 AM RUBBER INSULATOR Body Mass Index 36.19 05/03/2023 11:11 AM RUBBER INSULATOR Plan of Treatment Scheduled Procedures Name Priority Associated Diagnoses Date/Ti me COLONOSCOPY Colon cancer screening COLONOSCOPY Colon cancer screening Procedures Procedure Name Priority Date/Time Associated Diagnosis Comments HEPATITIS C ANTIBODY Routine 10/28/2021 10:25 AM CDT Encounter for hepatitis C screening test for low risk patient PSA SCREEN Routine 10/28/2021 10:25 AM CDT Prostate cancer screening from Last 3 Months or Most Recently Relevant to Health Maintenance Results * PSA screen (10/28/2021 10:25 AM CDT) PSA, Total 0.6 0.0 - 4.0 ng/mL [facility] Blood specimen (specimen) 10/28/2021 10:25 AM CDT 10/28/2021 10:28 AM CDT Wendi Hawkins MD LAB BLOOD ORDERABLES F inal Result Performing Organization Address [facility] Co de Phone Number [facility] [address] [place] [address] * Hepatitis C antibody (10/28/2021 10:25 AM CDT) A-HCV II 0.06 Negative <0.90 [facility] Comment: <=0.9 negative 0.9-<1.0 borderline ?? >= 1 positive Blood specimen (specimen) 10/28/2021 10:25 AM CDT 10/28/2021 10:28 AM CDT Wendi Hawkins MD LAB MICROBIOLOGY - GEN ERAL ORDERABLES Final Result Performing Organization Address [facility] de Phone Number [facility] [address] [place] [address] from Last 3 Months or Most Recently Relevant to Health Maintenance Insurance MEDICARE MEDICARE MEDICARE MEDICARE Advance Directives For more information, please contact: [phone] * Full Code (Latest Code Status on File) Date Activated Date Inactivated Comments 03/02/2021 10:43 PM 03/06/2021 5:42 PM Care Teams Dye Lab Technician Relationship Specialty Start Date End Date Kelin Collier NP PCP - General Nurse Practitioner 04/28/23
--- OUTSIDE RECORDS SUMMARY | 2024-06-25 13:55 | XMS_ITS | Clinical Summary ---
Author Organization [facility] Address [address] [place] [id number] Care Team Providers Care Tower Helper Name Role Phone Kelin Collier NP Primary [...] Fregoso) Assessment & Plan (07/10/2020 11:00 AM ELECTROLYTIC DE SCALER): Still symptomatic and has a shoulder eval planned 2 Assessment & Plan (06/27/2020 10:56 AM ELECTROLYTIC DE SCALER): Check US and refer straight to ortho [...] obese. Assessment & Plan (07/10/2020 11:01 AM ELECTROLYTIC DE SCALER): We saw a huge spike RIVKA and we increased both meds and he tolerates and they are working. Because he is getting a sleep eval and if Rx started, the BP willlikely further decrease so no increase in meds, he will con to check BP at [facility] Assessment & Plan (06/27/2020 10:50 AM ELECTROLYTIC DE SCALER): Very sub optimal I am very concerned [...] day Assessment & Plan (06/27/2020 10:51 AM ELECTROLYTIC DE SCALER): Refill both, he actually not on singulair [...] refill Assessment & Plan (07/27/2018 3:10 PM ELECTROLYTIC DE SCALER): We will back up here and send for plain XR and refer to PMR The jaw may be TMJ check skull series Obstructive sleep apnea syndrome in adult 2014 Overview (09/30/2017): Description: obstructive and central treated with APAP 4-4, but non compliance an issue so I begged him to get back to sleep center in [facility] Assessment & Plan (04/07/2022 9:46 PM CDT): He needs to follow-up with sleep medicine. Assessment & Plan (01/11/2022 8:21 PM CDT): rec that he follow-up with sleep medicine for follow-up PSG. Assessment & Plan (07/10/2020 10:59 AM ELECTROLYTIC DE SCALER): Await repeat analysis 07/22 Assessment & Plan (06/27/2020 10:46 AM ELECTROLYTIC DE SCALER): We will refer and see if a [...] Plan (04/07/2022 9:47 PM CDT): Non obstructive. [facility] in 2007 showed 40% CAD in LAD and 30% in RCA and LCx with slow flow in RCA. - Cont medication management with ASA 81mg every day, rosuvastatin 10mg every day Assessment & Plan (01/11/2022 8:18 PM CDT): [facility] in 2007 showed 40% CAD in LAD and 30% in RCA and LCx with slow flow in RCA. - Cont medication management with ASA 81mg every day, consider changing to high intensity statin pending lipid panel. Assessment & Plan (06/27/2020 10:49 AM ELECTROLYTIC DE SCALER): Despite the severe HTN there is no [...] been provided to and reviewed with the patient/pet care attendant prior to discharge. Cough 11/07/2019 01/11/2022 Overview [...] I am suspicious the move to the [facility] has triggered a reaction Also the BYRON-I [...] 03/30/2016 Pneumococcal Polysaccharide PPV23 03/14/2015, Tdap 09/27/2017 Surgical History Surgery Date Site/Laterality Comments ID [email or web address] Appendectomy - (Added by TW Conv) BACK SURGERY Medical History Medical History Date Comments Old myocardial infarction Histor y of non-ST elevation myocardial infarction (NSTEMI) - (Added by TW Conv) Arthritis Headache Family History Medical History Relation Name Comments Heart attack Brother Arthritis Father Arthritis Mother Heart disease Mother Hypertension Mother Relation Name Status Comments Brother Father Mother Social History Tobacco Use Types Packs/Day Years [...] on file Legal Sex Male 2:28 AM ELECTROLYTIC DE SCALER Gender Identity Not on file Sexual Orientation Not on file Obstetrics History Last Filed Vital Signs Vital Sign Reading Time Taken Comments Blood Pressure 125/83 05/03/2023 11:11 AM ELECTROLYTIC DE SCALER Pulse 68 05/03/2023 11:11 AM ELECTROLYTIC DE SCALER Temperature 36.3 ??C (97.3 ??F) 05/03/2023 11:[address] Respiratory Rate 16 03/23/2022 11:27 AM CDT Oxygen Saturation 96% 05/03/2023 11:11 AM ELECTROLYTIC DE SCALER Inhaled Oxygen Concentration - - Weight 108 kg (238 lb) 05/03/2023 11:11 AM ELECTROLYTIC DE SCALER Height 172.7 cm (5' 8 ) 05/03/2023 11:11 AM ELECTROLYTIC DE SCALER Body Mass Index 36.19 05/03/2023 11:11 AM ELECTROLYTIC DE SCALER Plan of Treatment Scheduled Procedures Name Priority Associated Diagnoses Date/Ti me COLONOSCOPY Colon cancer screening COLONOSCOPY Colon cancer screening Health Maintenance Due Date Last Done Comments Colon Cancer Screening-Colonoscopy 1960 Hepatitis B Screening 09/16/1977 Zoster Vaccine (1 of 2) 09/16/2009 Pneumococcal vaccine <65 (2 of 2 - PCV) 03/14/2016 03/14/2015, 03/14/2015 Depression Screening 10/28/2022 10/28/2021, 03/02/20 21 Prostate Cancer Screening-PSA 10/29/2023 10/28/2021 Influenza Vaccine (#1) 2024 2, 05/03/2019, 05/03/2019, Additional history exists Regular Well Visit/Exam 18-64 05/03/2024 05/03/2023, 10/28/2021 DTaP/Tdap/Td Vaccine (2 - Td or Tdap) 09/28/2027 09/27/2017 Hepatitis C Screening Completed 10/28/2021 Procedures Procedure Name Priority Date/Time Associated Diagnosis Comments HEPATITIS C ANTIBODY Routine 10/28/2021 10:25 AM CDT Encounter for hepatitis C screening test for low risk patient PSA SCREEN Routine 10/28/2021 10:25 AM CDT Prostate cancer screening from Last 3 Months or Most Recently Relevant to Health Maintenance Results * PSA screen (10/28/2021 10:25 AM CDT) PSA, Total 0.6 0.0 - 4.0 ng/mL [facility] Blood specimen (specimen) 10/28/2021 10:25 AM CDT 10/28/2021 10:28 AM CDT Wendi Hawkins MD LAB BLOOD ORDERABLES F inal Result Performing Organization Address [facility] de Phone Number [facility] [address] [place] [address] * Hepatitis C antibody (10/28/2021 10:25 AM CDT) A-HCV II 0.06 Negative <0.90 [facility] Comment: <=0.9 negative 0.9-<1.0 borderline ?? >= 1 positive Blood specimen (specimen) 10/28/2021 10:25 AM CDT 10/28/2021 10:28 AM CDT Wendi Hawkins MD LAB MICROBIOLOGY - GEN ERAL ORDERABLES Final Result Performing Organization Address [facility] Co de Phone Number [address] [address] from Last 3 Months or Most Recently Relevant to Health Maintenance Insurance MEDICARE MEDICARE MEDICARE MEDICARE Advance Directives For more information, please contact: [phone] * Full Code (Latest Code Status on File) Date Activated Date Inactivated Comments 03/02/2021 10:43 PM 03/06/2021 5:42 PM Care Teams Tower Helper Relationship Specialty Start Date End Date Kelin Collier NP PCP - General Nurse Practitioner 04/28/23
--- OUTSIDE RECORDS SUMMARY | 2024-06-25 13:55 | XMS_ITS | Encounter Summary ---
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 This message was sent via [employer] [facility] -------Fax Transmission Report------- To: at [phone] Sent Time: 11:47 01/07/23 Subject of Fax: DME order and notes-TJ Result: The transmission was successful. Pages Sent: [phone] Sent at: 01/07/23 11:47 Retry Count: 1 * Telephone Encounter - Jessica Elaine RN - 01/07/2023 11:29 AM CDT ----- Message from VASYL Farias sent at 01/07/2023 11:14 AM CDT ----- See new dme order Thank you documented in this encounter Plan of Treatment Scheduled Procedures Name Priority Associated Diagnoses Date/Ti me COLONOSCOPY Colon cancer screening COLONOSCOPY Colon cancer screening documented as of this encounter Visit Diagnoses Not on filedocumented in this encounter Care Teams Bus Attendant Relationship Specialty Start Date End Date Wendi Hawkins MD [address] [place] [address] PCP - General Internal Medicine 09/05/21 04/27/23 documented as of this encounter
--- OUTSIDE RECORDS SUMMARY | 2024-06-25 13:55 | XMS_ITS | Referral Summary ---
Author Organization [facility] Address [address] [place] [address] Care Team Providers Care Gis Instructor Name Role Phone Pal Russell MD Primary Care Provider [phone] Source Comments [facility],non-owned Affiliates and Associated Physician Practices is amultiple site organization consisting of ambulatory clinics and hospital sitesin [place], [place], [place] and [place]. This disclosure is being madepursuant to the Care Everywhere program and may not contain all information available regarding this patient. Last updated 18.[facility] Allergies No known active allergies Medications * [...] Comments Blood Pressure 134/80 06/16/2018 11:28 AM BETA TESTER Pulse 109 06/16/2018 11:28 AM BETA TESTER Temperature 37.3 ??C (99.2 ??F) 06/16/2018 11:[address] Respiratory Rate - - Oxygen Saturation 98% 06/16/2018 11:28 AM BETA TESTER Inhaled Oxygen Concentration - - Weight 93 kg (205 lb) 06/16/2018 11:28 AM BETA TESTER Height 172.7 cm (5' 8 ) 06/16/2018 11:28 AM BETA TESTER Body Mass Index 31.17 06/16/2018 11:28 AM BETA TESTER Plan of Treatment Not on file Care Teams Gis Instructor Relationship Specialty Start Date End Date Pal Russell MD PCP - General Internal Medicine 06/16/18
--- OUTSIDE RECORDS SUMMARY | 2024-06-25 13:55 | XMS_ITS | Patient Health Summary ---
Author Organization [facility] Address [address] [place] [address] Care Team Providers Care Oracle Data Warehouse Developer Name Role Phone Pal Russell MD Primary Care Provider [phone] Note from [facility],non-owned Affiliates and Associated Physician Practices is amultiple site organization consisting of ambulatory clinics and hospital sitesin [place], [place], [place] and [place]. This disclosure is being madepursuant to the Care Everywhere program and may not contain all information available regarding this patient. Last updated 18.[facility] Allergies No known active allergies Medications * Be aware that medications may not be up to date on this document. Alwaysverify current medications with the patient. * PRAVASTATIN SODIUM PO * aspirin (ASPIRIN) 325 MG tablet Take 325 mg by mouth once daily * LISINOPRIL PO * albuterol HFA (PROVENTIL;VENTOLIN;PROAIR) 108 (90 BASE) MCG/ACT inhaler (Started 06/16/2018) Inhale 2 puffs by mouth every 4 hours as needed for Shortness of Breath, Wheezing or Cough * benzonatate (TESSALON) 100 MG capsule(Started 06/16/2018) Take 1 capsule by mouth 3 times daily as needed for Cough Social History Tobacco Use Types Packs/Day Years Used Date Smoking Tobacco: Never Smokeless Tobacco: Never Tobacco Cessation:Counseling Given: Yes Sex and Gender Information Value Date Recorded Sex Assigned at Not on file Gender Identity Not on file Sexual Orientation Not on file Last Filed Vital Signs Vital Sign Reading Time Taken Comments Blood Pressure 134/80 06/16/2018 11:28 AM GOLF TOURNAMENT CONSULTANT Pulse 109 06/16/2018 11:28 AM GOLF TOURNAMENT CONSULTANT Temperature 37.3 ??C (99.2 ??F) 06/16/2018 11:[address] Respiratory Rate - - Oxygen Saturation 98% 06/16/2018 11:28 AM GOLF TOURNAMENT CONSULTANT Inhaled Oxygen Concentration - - Weight 93 kg (205 lb) 06/16/2018 11:28 AM GOLF TOURNAMENT CONSULTANT Height 172.7 cm (5' 8 ) 06/16/2018 11:28 AM GOLF TOURNAMENT CONSULTANT Body Mass Index 31.17 06/16/2018 11:28 AM GOLF TOURNAMENT CONSULTANT Care Teams Oracle Data Warehouse Developer Relationship Specialty Start Date End Date Pal Russell MD PCP - General Internal Medicine 06/16/18
--- OUTSIDE RECORDS SUMMARY | 2024-06-25 13:55 | XMS_ITS | Encounter Summary ---
Author Organization [facility] Address [address] [place] [address] Phone Care Team Providers Care Broth Mixer Name Role Phone Wendi Hawkins MD Primary Care Provider Reason for Referral * (Routine) - Closed Specialty Diagnoses / Procedures Referred By Contmigue t Referred To Contact Diagnoses LUIS F (obstructive sleep apnea) Procedures Miscellaneous DME Hany Ch PA [address] [place] [address] Phone: tel: fax: Referral ID Status Reason Start Date Expiration Date Visits Re quested Visits Authorized [id number] Closed 01/07/2023 02/06/2024 1 1 Encounter Details Date Type Department Care Team (Late st Contact Info) Description 01/07/2023 Orders Only [facility] Neuro Sleep [address] 6[address] [place] [phone] Hany Ch PA [address] [place] [address] LUIS F (obstructive sleep apnea) (Primary Dx) Social History Tobacco Use Types Packs/Day Years [...] on file 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 Gender Identity Not on file Sexual Orientation Not on file documented as of this encounter Plan of Treatment Scheduled Procedures Name Priority Associated Diagnoses Date/Ti me COLONOSCOPY Colon cancer screening COLONOSCOPY Colon cancer screening documented as of this encounter Visit Diagnoses Diagnosis LUIS F (obstructive sleep apnea)- Primary Obstructive sleep apnea (adult) (pediatric) documented in this encounter Orders General Supply Count Last Ordered Date First Or dered Date MISCELLANEOUS DME 1 01/07/2023 documented in this encounter Care Teams Broth Mixer Relationship Specialty Start Date End Date Wendi Hawkins MD [address] [place] [address] PCP - General Internal Medicine 09/05/21 04/27/23 documented as of this encounter
--- OUTSIDE RECORDS SUMMARY | 2024-06-25 13:55 | XMS_ITS | Encounter Summary ---
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
--- OUTSIDE RECORDS SUMMARY | 2024-06-25 13:56 | XMS_ITS | Encounter Summary ---
Author Organization [facility] Address [address] [place] [address] Phone Care Team Providers Care Shed Hand Name Role Phone Wendi Hawkins MD Primary Care Provider Reason for Visit * Sleep Medicine (Routine) - Closed Specialty Diagnoses / Procedures Referred By Contmigue t Referred To Contact Diagnoses LUIS F (obstructive sleep apnea) Procedures PSG-Sleep Provider Use Only Lyle Savaeg MD [address] [place] [address] Phone: tel: fax: [facility] (All Locations) Referral ID Status Reason Start Date Expiration Date Visits Re quested Visits Authorized [id number] Closed 09/09/2022 10/09/2023 1 1 Encounter Details Date Type Department Care Team (Latest Contact Info) Description 10/06/2022 7:30 PM CDT Procedure visit [facility] Neuro Sleep [address] 6th [address] [place] [phone] Central sleep apnea due to medical condition (Primary Dx); LUIS F (obstructive sleep apnea) Social History Tobacco Use Types Packs/Day Years [...] on file 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 Gender Identity Not on file Sexual Orientation Not on file documented as of this encounter Last Filed Vital Signs Vital Sign Reading Time Taken Comments Blood Pressure 150/96 10/06/2022 9:46 PM CDT Pulse 92 10/06/2022 9:46 PM CDT Temperature 36.8 ??C (98.2 ??F) 10/06/2022 9:46 PM CD T Respiratory Rate - - Oxygen Saturation 94% 10/06/2022 9:46 PM CDT Inhaled Oxygen Concentration - - Weight 107.3 kg (236 lb 8 oz) 10/06/2022 9:46 PM CDT Height 172.7 cm (5' 8 ) 10/06/2022 9:46 PM CDT Body Mass Index 35.96 10/06/2022 9:46 PM CDT documented in this encounter Progress Notes * Shoaib Thurston MD - 10/06/2022 7:30 PM CDTAssociated Order(s): PSG- Sleep Provider Use Only Pre-Procedure Diagnose(s): LUIS F (obstructive sleep apnea) Post-Procedure Diagnose(s): LUIS F (obstructive sleep apnea) PSG-Sleep Provider Use Only Date/Time: 10/06/2022 9:00 PM Performed by: Shoaib Thurston MD Authorized by: Lyle Savage MD RE: Sean Ritter : 1960 ABY: 10/06/2022 CPAP/RESMED ASV TITRATION Clinical History: Sean Ritter is a 62.1 year [age] male with transient global amnesia, CAD s/p old FL, LV diastolic dysfunction, HTN, headache, chronic low back pain, cervical radiculopathy, allergic rhinitis, and depression who was found to have severe central and obstructive sleep apnea and returns to the lab for an in lab titration. Height: 68.0 inches, Weight: 236.5 lb, BMI: 36.0 kg/m??, Neck Circumference: 17.0 inches, Polysomnographic Findings: Unless otherwise noted, polysomnogram was recorded and scored in accordance with recommended parameters as outlined in the AASM Manual for the Scoring of Sleep and Associated Events, Version 2.5. Hypopneas were scored in accordance with recommended parameters as outlined in Chapter VIII, Part 1: Rules for Adults, Category D, Section 1A. During all night polysomnography, the patient slept for 356 minutes out of 442 minutes in bed. Lights Out occurred at 22:37 and Lights On occurred at 05:59. Sleep latency was 14 minutes and REM latency was 98.5 minutes. Patient experienced a sleep efficiency of 80.7 %. EMG monitoring of the tibialis anterior muscle revealed 11.4 periodic leg movements per hour of sleep and these resulted in 1.0 arousals per hour. There were 6.2 arousals per hour of sleep for no apparent reason. Transcutaneous PCO2 revealed a baseline wake level of 42mmHg. EKG monitoring revealed premature ventricular complexes and sinus arrhythmia. CPAP/RESMED ASV Findings: CPAP settings from 4 cm H2O to 10 cm H2O were tested. Resmed BIPAP ST 10/6 with a backup rate of 12was tested. Resmed ASV settings from EPAP 8 cm H2O, Min. PS 4 cm H2O, and Max PS 10 cm H2O to EPAP 13 cm H2O, Min. PS 4 cm H2O, and Max PS 10 cm H2O were tested. CPAP was not effective in treating sleep apnea as frequent central respiratory events persisted at all CPAP settings tested. BiPAP ST with back up rate was also not effective in treating central events. A Resmed ASV setting of EPAP 12 cmH2O, Min. PS 4 cm H2O, and Max PS 10 cm H2O was found to be best. Recording at this setting continued for 123.0 minutes of sleep. The patient slept in the lateral position. Use of this setting resulted in the appearance of consolidated sleep, with 10.5 minutes of REM sleep recorded. At this setting, the patient experienced 5.9 arousals without apparent cause per hour of sleep. At this setting, the patient had a AHI of 4.9 events per hour of sleep, baseline oxygen saturation of 97-99% and desaturations of 89-91% during the respiratory events. The patient spent 0.2 minutes with SaO2 less than 89%. At this setting, transcutaneous PCO2 monitoring revealed a range of 38-41 mmHg. The final PAP mask used was a medium Resmed Airfit P10 mask. At the best pressure, scoring of respiratory events utilizing inclusion of hypopneas defined by 4% oxygen desaturation in addition to reduction in flow (AASM Manual for the Scoring of Sleep and Associated Events, Version 2.5, Chapter VIII, Part 1:Rules for Adults, Category D, Section 1B), yielded an AHI of 4.9. Interpretation: Titration of RESMED ASV documented that this is an effective treatment for the patient's obstructive sleep apnea, with the best setting being EPAP12 cm H2O, Min. PS 4 cm H2O, and Max PS 10 cm H2O in the lateral position. Respiratory events (mainly central) persisted in the supine position at all settings. Resmed ASV was used due to CPAP and BiPAP ST being ineffective in controlling respiratory events (mainly central events). Best RESMED ASV Setting: EPAP 12 cm H2O, Min. PS 4 cm H2O, and Max PS 10 cm H2O (and lateral positional therapy) Diagnosis: obstructive sleep apnea G47.33, central sleep apnea due to a medical condition G47.37 Accredited Scorer: Quiana Hatch I attest that I have reviewed this polysomnogram epoch by epoch, in accordance with AASM standards. Shoaib Thurston M.D., [facility] Professor of Neurology [facility] Sleep Medicine Center Diplomate, [place] Board of Psychiatry and Neurology with added Qualifications in Sleep Medicine documented in this encounter Plan of Treatment Scheduled Procedures Name Priority Associated Diagnoses Date/Ti me COLONOSCOPY Colon cancer screening COLONOSCOPY Colon cancer screening documented as of this encounter Procedures Procedure Name Priority Date/Time Associated Diagnosis Comments PSG (COMPLEX) Routine 10/06/2022 9:00 PM CDT LUIS F (obstructive sleep apnea) documented in this encounter Results * PSG (COMPLEX) (10/06/2022 9:00 PM CDT) Narrative Shoaib Thurston MD - 10/06/2022 9:00 PM CDT Shoaib Thurston MD ? 10/07/2022 ??8:41 AM PSG-Sleep Provider Use Only Date/Time: 10/06/2022 9:00 PM Performed by: Shoaib Thurston MD Authorized by: Lyle Savage MD ?? Lyle Savage MD SLEEP CENTER ORDERABLES Fi nal Result documented in this encounter Visit Diagnoses Diagnosis Central sleep apnea due to medical condition- Primary LUIS F (obstructive sleep apnea) Obstructive sleep apnea (adult) (pediatric) documented in this encounter Orders General Supply Count Last Ordered Date First Or dered Date BI-LEVEL MACHINE WITH HEATED HUMIDIFIER 1 0 10/07/2022 documented in this encounter Care Teams Shed Hand Relationship Specialty Start Date End Date Wendi Hawkins MD [address] [place] [address] PCP - General Internal Medicine 09/05/21 04/27/23 documented as of this encounter
--- OUTSIDE RECORDS SUMMARY | 2024-06-25 13:56 | XMS_ITS | Encounter Summary ---
Author Organization [facility] Address [address] [place] [address] Phone Care Team Providers Care Test Engineering Technician Name Role Phone Wendi Hawkins MD Primary Care Provider Reason for Referral * (Routine) - Closed Specialty Diagnoses / Procedures Referred By Contmigue t Referred To Contact Diagnoses Mixed sleep apnea Procedures Miscellaneous DME Hany Ch PA [address] [place] [address] Phone: tel: fax: Referral ID Status Reason Start Date Expiration Date Visits Re quested Visits Authorized [id number] Closed 12/23/2022 01/22/2024 1 1 Encounter Details Date Type Department Care Team (Late st Contact Info) Description 12/23/2022 Orders Only [facility] Neuro Sleep [address] [facility] 6th [address] [place] [phone] Hany Ch PA [address] [place] [address] Mixed sleep apnea (Primary Dx) Social History Tobacco Use Types [...] on file Legal 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 Gender Identity Not on file Sexual Orientation Not on file documented as of this encounter Plan of Treatment Scheduled Procedures Name Priority Associated Diagnoses Date/Ti me COLONOSCOPY Colon cancer screening COLONOSCOPY Colon cancer screening documented as of this encounter Visit Diagnoses Diagnosis Mixed sleep apnea- Primary Other organic sleep apnea documented in this encounter Orders General Supply Count Last Ordered Date First Or dered Date MISCELLANEOUS DME 1 12/23/2022 documented in this encounter Care Teams Test Engineering Technician Relationship Specialty Start Date End Date Wendi Hawkins MD [address] [place] [address] PCP - General Internal Medicine 09/05/21 04/27/23 documented as of this encounter
--- OUTSIDE RECORDS SUMMARY | 2024-06-25 13:56 | XMS_ITS | Encounter Summary ---
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 He is not able to properly use his machine. documented in this encounter Plan of Treatment Scheduled Procedures Name Priority Associated Diagnoses Date/Ti me COLONOSCOPY Colon cancer screening COLONOSCOPY Colon cancer screening documented as of this encounter Visit Diagnoses Not on filedocumented in this encounter Care Teams Diabetes Clinical Manager Relationship Specialty Start Date End Date Wendi Hawkins MD [address] [place] [address] PCP - General Internal Medicine 09/05/21 04/27/23 documented as of this encounter
--- OUTSIDE RECORDS SUMMARY | 2024-06-25 13:56 | XMS_ITS | Encounter Summary ---
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 * Telephone Encounter - Hari Thayer RMA - 10/22/2022 2:39 PM CDT Pt * Telephone Encounter - Leena Braxton CMA - 10/13/2022 10:48 AM CDT Pt is still waiting for a call back. * Telephone Encounter - Hari Thayer RMA - 10/07/2022 9:10 AM CDT I have reviewed the provider's instructions with the patient, answering all questions to his satisfaction. Pt states that he felt like he stopped breathing a couple of times last night and felt like he was in water. Would like a provider call to discuss. * Telephone Encounter - Hari Thayer RMA - 10/07/2022 9:09 AM CDT ----- Message from Shoaib Thurston MD sent at 10/07/2022 8:39 AM CDT ----- Notify patient that sleep study last night showed that we were able to find a good PAP setting whenhe was sleeping on his side. He needs an ASV machine. If he agrees to ASV, send my order to Dme and arrange f/u with Hany Ch in 3 months. Shoaib Thurston M.D., [facility] Professor of Neurology [facility] Sleep Medicine Center Diplomate, [place] Citizen Board of Psychiatry and Neurology with added Qualifications in Sleep Medicine documented in this encounter Plan of Treatment Scheduled Procedures Name Priority Associated Diagnoses Date/Ti me COLONOSCOPY Colon cancer screening COLONOSCOPY Colon cancer screening documented as of this encounter Visit Diagnoses Not on filedocumented in this encounter Care Teams Sheet Music Salesperson Relationship Specialty Start Date End Date Wendi Hawkins MD [address] [place] [address] PCP - General Internal Medicine 09/05/21 04/27/23 documented as of this encounter
--- OUTSIDE RECORDS SUMMARY | 2024-06-25 13:56 | XMS_ITS | Encounter Summary ---
Author Organization [facility] Address [address] [place] [address] Phone Care Team Providers Care Peer Financial Counselor Name Role Phone Wendi Hawkins MD Primary Care Provider Encounter Details Date Type Department Care Team (Latest Contact Info) Description 04/07/2022 10:40 AM CDT Office Visit [facility] [address] [place] [address] Wendi Hawkins MD [address] [place] [address] Benign essential HTN (Primary Dx); Pure hypercholesterolemia; Obstructive sleep apnea syndrome in adult; Chronic coronary artery disease; Seasonal allergic rhinitis due to pollen; Osteoarthritis of first metatarsophalangeal (MTP) joint of right foot; Increased body mass index (BMI) Social History Tobacco Use Types Packs/Day Years [...] on file 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 Fexofenadine (Yvette) 180mg is a good alternative. documented in this encounter Ordered Prescriptions Prescription Sig Dispense Quantity Refills Last Filled Start Date End Date azelastine (ASTELIN) 137 mcg (0.1 %) nasal sprayIndications:Seasona l Allergic Rhinitis Administer 1 spray into each nostril 2 (two) times a day Use in each nostril as directed 30 mL 2 01/06/20 23 rosuvastatin (CRESTOR) 10 mg tabletIndications:Pure hypercholesterolemia Take 1 tablet (10 mg total) by mouth daily 90 tablet 3 2 04/20/20 23 documented in this encounter Progress Notes * Wendi Hawkins MD - 04/07/2022 10:40 AM CDT Subjective/Objective Patient ID: Sean Ritter is a 61 y.o. male. Chief Complaint Follow-up HPI 61 yo with PMHx of CAD, HTN, HLD, LUIS F presents for follow-up. Toe is feeling better after corticosteroid injection. He has not been exercising much due to foot pain. He tries to eat healthy, but after a few days returns to bread and pasta. He goes out to eat twice a week but also cooks at home. He eats 3 meals a day plus snacks. He eats eggs, sierra, avocado for breakfast, oatmeal, or Cereal (granola or chex). He eats a sandwich for lunch. For dinner he will cook healthier meals with chicken, shrimp, mushroom. He will have a salad with dinner. Snacks are peanut butter, crackers, popcorn, hummus with chips. No sweetened beverages. Bps at home 120-130/ 80-90s. He has profuse, white nasal drainage that is constant on and off for the last 2 years. This triggers some nausea. This happens a few times a year. No fevers, cough. Past Medical History: Diagnosis Date Arthritis Headache Old myocardial infarction History of non-ST elevation myocardial infarction (NSTEMI) - (Added by PATI Conv) Past Surgical History: Procedure Laterality Date BACK SURGERY HI APPENDECTOMY Appendectomy - (Added by PATI Conv) No Known Allergies Current Outpatient Medications Medication Sig Dispense Refill amLODIPine (NORVASC) 5 mg tablet Take 1 tablet (5 mg total) by mouth daily 90 tablet 3 aspirin 81 mg chewable tablet Take 81 mg by mouth daily benzonatate (TESSALON) 200 mg capsule TAKE 1 CAPSULE BY MOUTH UP TO THREE TIMES DAILY NEEDED FORCOUGH brimonidine (ALPHAGAN) 0.2 % ophthalmic solution INSTILL 1 DROP INTO RIGHT EYE TWICE DAILY celecoxib (CeleBREX) 200 mg capsule Take 1 capsule by mouth twice daily 60 capsule 0 cyclobenzaprine (FLEXERIL) 10 mg tablet TAKE 1 TABLET BY MOUTH THREE TIMES DAILY NEEDED FOR MUSCLE SPASMS 30 tablet 0 fluticasone propionate (FLONASE) 50 mcg/actuation nasal spray Administer 1 spray into each nostril daily 16 g 5 methylPREDNISolone (MEDROL DOSEPACK) 4 mg Dosepack TAKE BY MOUTH DIRECTED ON INSIDE OF PACKAGE metoprolol XL (TOPROL-XL) 100 mg 24 hr tablet Take 1 tablet (100 mg total) by mouth daily 90 tablet3 rosuvastatin (CRESTOR) 10 mg tablet Take 1 tablet (10 mg total) by mouth daily 30 tablet 11 timolol (TIMOPTIC) 0.5 % ophthalmic solution INSTILL 1 DROP INTO RIGHT EYE TWICE DAILY traMADoL (ULTRAM) 50 mg tablet Take 1 tablet (50 mg total) by mouth every 6 (six) hours 30 tablet 1 triamcinolone (NASACORT) 55 mcg nasal inhaler Administer 2 sprays into each nostril daily 16.9 mL 1 No current facility-administered medications for this visit. Family History Problem Relation Age of Onset Heart attack Brother Heart disease Mother Arthritis Mother Hypertension Mother Arthritis Father Social History Tobacco Use Smoking status: Never Smokeless tobacco: Never Substance and Sexual Activity Drug use: Never Sexual activity: Yes Partners: Female control/protection: None Comment: with partner of 3 years Alcohol Use: Not At Risk Frequency of Alcohol Consumption: 4 or more times a week Average Number of Drinks: 1 or 2 Frequency of Binge Drinking: Never reports being sexually active and has had partner(s) who are female. He reports using the followingmethod of control/protection: None. Review of Systems Review of Systems Constitutional: Negative for malaise/fatigue. HENT: Positive for congestion. Musculoskeletal: Positive for joint pain. Physical Exam Vitals BP 131/79 Pulse 69 Wt 104.8 kg (231 lb) BMI 35.12 kg/m?? General: Well-nourished and in no acute distress HENT: NCAT, MMM, hearing grossly intact. Nasal mucosa with some abrasions, pale mucosa. Eyes: No scleral icterus. PERRL, EOMI. CV: RRR, S1 and S2 present without murmurs, rubs or gallops. Pulmonary: Normal effort. Clear to auscultation bilaterally without wheezes or crackles. Extremities: No clubbing, cyanosis or edema. Radial and DP 2+ bilaterally. Skin: Warm and dry. No rashes or wounds. Neuro: A&Ox4. Normal gait. I have reviewed pertinent labs and imaging. Assessment/Plan Diagnoses and all orders for this visit: Benign essential HTN (Primary) Assessment & Plan: BP above goal <130/80. - Current medication regimen: cont amlodipine 5mg every day, metoprolol XL 100mg every day - asked pt to send home Bps. - Counseled regarding lifestyle measures to control HTN including low salt diet rich in fruits and vegetables, limiting alcohol use, regular exercise, and weight loss of 5-10% if pt is obese. Pure hypercholesterolemia Assessment & Plan: Lab Results Component Value Date CHOL 226 (H) 10/20/2019 Lab Results Component Value Date HDL 48 10/28/2021 HDL 54 10/20/2019 Lab Results Component Value Date LDLCALC 163 10/28/2021 LDL 146 (H) 10/20/2019 Lab Results Component Value Date TRIG 143 10/28/2021 TRIG 132 10/20/2019 TRIG 128 03/30/2016 - cont rosuvastatin 10mg every day, need to recheck at next appt Orders: - rosuvastatin (CRESTOR) 10 mg tablet; Take 1 tablet (10 mg total) by mouth daily Obstructive sleep apnea syndrome in adult Assessment & Plan: He needs to follow-up with sleep medicine. Chronic coronary artery disease Assessment & Plan: Non obstructive. LHC in 2007 showed 40% CAD in LAD and 30% in RCA and LCx with slow flow in RCA. - Cont medication management with ASA 81mg every day, rosuvastatin 10mg every day Seasonal allergic rhinitis due to pollen Assessment & Plan: Stop nasal triamcinolone and flonase, start azelastine nasal spray plus Zyrtec 10mg every day Orders: - azelastine (ASTELIN) 137 mcg (0.1 %) nasal spray; Administer 1 spray into each nostril 2 (two) times a day Use in each nostril as directed Osteoarthritis of first metatarsophalangeal (MTP) joint of right foot Assessment & Plan: Improving after corticosteroid injection. Increased body mass index (BMI) Assessment & Plan: Discussed diet changes and exercise Other orders - Flu Vaccine Recombinant Quad PF 18y+ IM - Flublok I have spent 25 minutes of total time on this encounter including chart review, [id number] time, coordination of care, and documentation. This does not include time spent in any separately reportable services. Return in about 3 months (around 07/08/2022) for Recheck.. Return sooner if needed. Wendi Hawkins MD documented in this encounter Miscellaneous Notes * Assessment & Plan Note - Wendi Hawkins MD - 04/07/2022 9:49 PM CDT Associated Problem(s): Increased body mass index (BMI) Discussed diet changes and exercise * Assessment & Plan Note - Wendi Hawkins MD - 04/07/2022 9:49 PM CDT Associated Problem(s): Osteoarthritis of first metatarsophalangeal (MTP) joint of right foot Improving after corticosteroid injection. * Assessment & Plan Note - Wendi Hawkins MD - 04/07/2022 9:47 PM CDT Associated Problem(s): Allergic rhinitis Stop nasal triamcinolone and flonase, start azelastine nasal spray plus Zyrtec 10mg every day * Assessment & Plan Note - Wendi Hawkins MD - 04/07/2022 9:46 PM CDT Associated Problem(s): Chronic coronary artery disease Non obstructive. LHC in 2007 showed 40% CAD in LAD and 30% in RCA and LCx with slow flow in RCA. - Cont medication management with ASA 81mg every day, rosuvastatin 10mg every day * Assessment & Plan Note - Wendi Hawkins MD - 04/07/2022 9:46 PM CDT Associated Problem(s): Obstructive sleep apnea syndrome in adult He needs to follow-up with sleep medicine. * Assessment & Plan Note - Wendi Hawkins MD - 04/07/2022 9:45 PM CDT Associated Problem(s): Hyperlipidemia Lab Results Component Value Date CHOL 226 (H) 10/20/2019 Lab Results Component Value Date HDL 48 10/28/2021 HDL 54 10/20/2019 Lab Results Component Value Date LDLCALC 163 10/28/2021 LDL 146 (H) 10/20/2019 Lab Results Component Value Date TRIG 143 10/28/2021 TRIG 132 10/20/2019 TRIG 128 03/30/2016 - cont rosuvastatin 10mg every day, need to recheck at next appt * Assessment & Plan Note - Wendi Hawkins MD - 04/07/2022 9:45 PM CDT Associated Problem(s): Benign essential HTN BP above goal <130/80. - Current medication regimen: cont amlodipine 5mg every day, metoprolol XL 100mg every day - asked pt to send home Bps. - Counseled regarding lifestyle measures to control HTN including low salt diet rich in fruits and vegetables, limiting alcohol use, regular exercise, and weight loss of 5-10% if pt is obese. documented in this encounter Plan of Treatment Scheduled Procedures Name Priority Associated Diagnoses Date/Ti il COLONOSCOPY Colon cancer screening COLONOSCOPY Colon cancer screening documented as of this encounter Visit Diagnoses Diagnosis Benign essential HTN- Primary Pure hypercholesterolemia Obstructive sleep apnea syndrome in adult Chronic coronary artery disease Coronary atherosclerosis of unspecified type of vessel, wales or graft Seasonal allergic rhinitis due to pollen Osteoarthritis of first metatarsophalangeal (MTP) joint of right foot Increased body mass index (BMI) documented in this encounter Discontinued Medications Medication Sig Discontinue Reason Start Date End Da te methylPREDNISolone (MEDROL DOSEPACK) 4 mg Dosepack TAKE BY MOUTH DIRECTED ON INSIDE OF PACKAGE 02/09/2022 04/07/2022 triamcinolone (NASACORT) 55 mcg nasal inhalerIndications:All ergic Rhinitis Administer 2 sprays into each nostril daily 03/19/2021 04/07/2022 rosuvastatin (CRESTOR) 10 mg tablet Take 1 tablet (10 mg total) by mouth daily Reorder 11/02/2021 04/07/2022 fluticasone propionate (FLONASE) 50 mcg/actuation nasal spray Administer 1 spray into each nostril daily 01/12/2022 04/07/2022 documented as of this encounter Orders Immunization/Injection Count Last Ordered Date First Ordered Date FLU VACCINE RECOMBINANT QUAD PF 18Y+ IM - FLUBLOK 1 04/07/2022 documented in this encounter Care Teams Peer Financial Counselor Relationship Specialty Start Date End Date Wendi Hawkins MD [address] [place] [address] PCP - General Internal Medicine 09/05/21 04/27/23 documented as of this encounter
--- OUTSIDE RECORDS SUMMARY | 2024-06-25 13:56 | XMS_ITS | Encounter Summary ---
Author Organization 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 I explained difference between central and obstructive sleep apnea and why ASv is different than CPAP. I also explained why he would not be a candidate for Inspire therapy given his degree of central events. documented in this encounter Plan of Treatment Scheduled Procedures Name Priority Associated Diagnoses Date/Ti me COLONOSCOPY Colon cancer screening COLONOSCOPY Colon cancer screening documented as of this encounter Visit Diagnoses Diagnosis Mixed sleep apnea- Primary Other organic sleep apnea documented in this encounter Orders General Supply Count Last Ordered Date First Or dered Date BI-LEVEL MACHINE WITH HEATED HUMIDIFIER 1 0 10/27/2022 documented in this encounter Care Teams Sand Shoveler Relationship Specialty Start Date End Date Wendi Hawkins MD [address] [place] [address] PCP - General Internal Medicine 09/05/21 04/27/23 documented as of this encounter
--- OUTSIDE RECORDS SUMMARY | 2024-06-25 13:56 | XMS_ITS | Encounter Summary ---
Author Organization [facility] Address [address] [place] [address] Phone Care Team Providers Care Business Asst Name Role Phone Wendi Hawkins MD Primary Care Provider Reason for Referral * Sleep Medicine (Routine) - Closed Specialty Diagnoses / Procedures Referred By Massimo steven Referred To Contact Diagnoses LUIS F (obstructive sleep apnea) Procedures PSG-Sleep Provider Use Only Lyle Savage MD [address] [place] [address] Phone: tel: fax: [facility] (All Locations) Referral ID Status Reason Start Date Expiration Date Visits Re quested Visits Authorized [id number] Closed 09/09/2022 10/09/2023 1 1 Reason for Visit * Sleep Medicine (Routine) - Closed Specialty Diagnoses / Procedures Referred By Massimo steven Referred To Contact Diagnoses LUIS F (obstructive sleep apnea) Procedures PSG-Sleep Provider Use Only Hany Ch, VASYL [address] [place] [address] Phone: tel: fax: [facility] (All Locations) Referral ID Status Reason Start Date Expiration Date Visits Re quested Visits Authorized [id number] Closed 06/23/2022 07/23/2023 1 1 Encounter Details Date Type Department Care Team (Latest Contact Info) Description 09/07/2022 7:30 PM CDT Procedure visit [facility] [address] [place] [address] LUIS F (obstructive sleep apnea) (Primary Dx); Primary central sleep apnea Social History Tobacco Use Types Packs/Day Years [...] on file 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 Gender Identity Not on file Sexual Orientation Not on file documented as of this encounter Last Filed Vital Signs Vital Sign Reading Time Taken Comments Blood Pressure 144/93 09/07/2022 7:47 PM CDT Pulse 84 09/07/2022 7:47 PM CDT Temperature 36.7 ??C (98.1 ??F) 09/07/2022 7:47 PM CD T Respiratory Rate - - Oxygen Saturation 96% 09/07/2022 7:47 PM CDT Inhaled Oxygen Concentration - - Weight 109.8 kg (242 lb) 09/07/2022 7:47 PM CDT Height 172.7 cm (5' 8 ) 09/07/2022 7:47 PM CDT Body Mass Index 36.8 09/07/2022 7:47 PM CDT documented in this encounter Progress Notes * Nona Patel MD - 09/07/2022 7:30 PM CDTAssociated Order(s): PSG- Sleep Provider Use Only Pre-Procedure Diagnose(s): LUIS F (obstructive sleep apnea) Post-Procedure Diagnose(s): LUIS F (obstructive sleep apnea) PSG-Sleep Provider Use Only Date/Time: 09/07/2022 10:00 PM Performed by: Nona Patel MD Authorized by: Hany Ch PA [facility] in [facility] OF MEDICINE [facility] [address] [place] [address] Main: RE: Sean Ritter : 1960 ABY: 09/07/2022 ALL NIGHT POLYSOMNOGRAM Clinical History: Sean Ritter is a 62 year old male with a history of transient global amnesia, coronary artery disease complicated by diastolic dysfunction, hypertension and depression who presents with a history ofobstructive sleep apnea that is currently untreated (did not tolerate PAP therapy in the past) for consideration of hypoglossal nerve stimulator treatment for sleep apnea. Height: 68 inches, Weight: 242 lb, BMI: 37 kg/m??, Neck Circumference: 17 inches Polysomnographic Findings: Unless otherwise noted, polysomnogram was recorded and scored in accordance with recommended parameters as outlined in the [employer] Manual for the Scoring of Sleep and Associated Events, Version 2.6. Hypopneas were scored 1) in accordance with recommended (3%) parameters as outlined in Chapter VIII, Part 1: Rules for Adults, Category D, Section 1A, defined by 3% oxygen desaturation or arousal in addition to reduction in flow, and 2) additionally scored by acceptable (4%) parameters as outlined in Chapter VIII, Part 1: Rules for Adults, Category D, Section 1B, definedby 4% oxygen saturation in addition to reduction in flow. During all night polysomnography, the patient slept for 323 minutes out of 437 minutes in bed. Lights Out occurred at 22:12 and Lights On occurred at 05:30. Sleep latency was 06 minutes and REM latency was 131 minutes. Patient experienced a sleep efficiency of 73.8 %. Respiratory monitoring using nasal/oral thermistor, pressure transducer, and polyvinylidene fluoride (PVDF) effort belts revealed a 3% apnea/hypopnea index (3% AHI) of 87.7 events per hour of sleep, a 4% apnea-hypopnea index (4% AHI) of 87.7 events per hour of sleep, a central apnea index (AGATA) of 33.3 and a 3% central apnea-hypopnea index (CAHI) of 33.3. The patient experienced 30.3 obstructive apneas, 11.3 mixed apneas, 33.3 central apneas, 12.8 obstructive 3% hypopneas, 0 central 3% hypopneas per hour of sleep. There was a 3% AHI of 88.1 events per hour of NREM sleep, and a 3% AHI of 84.5 events per hour of REM sleep. The patient had a 3% AHI of N/A events per hour of sleep in the supine position, N/A events per hour of sleep in the prone position, and 87.7 events per hour of sleep in the lateral position. The patient had a baseline saturation of 98-99% while awake. During NREM sleep, the baseline SpO2 average range was 97-100%. During REM sleep, the baseline SpO2 average range [id number]%. Desaturations associated with abnormal breathing events were in the 75-95% range during NREM sleep and 76-92% range during REM sleep. The lowest SpO2 during the study was 75%. Patient spent 54.8 minutes with SpO2 less than 89%. The snoring microphone and mold repair technician observation revealed rare snores. EMG monitoring of the tibialis anterior muscle revealed 0.0 periodic leg movements per hour of sleep. There were 2.4 arousals per hour of sleep for no apparent reason. EKG monitoring revealed premature ventricular complexes. Interpretation: This all night polysomnogram provides evidence of severe obstructive sleep apnea based on a 3% AHI of 87.7 and a 4% AHI of 87.7 events per hour of sleep as well as severe central sleep apnea with 3% central AHI of 33.3 events per hour of sleep. Note that central apneas comprised more than a quarterof the total recorded events. Given the patient's diagnosis and medical history, the patient would likely benefit from treatment with positive airway pressure (PAP). Results were discussed with the patient. We reviewed that because his AHI is > 65 and more than 25% of his events are central in nature he would not be considered to meet criteria for hypoglossal never stimulator treatment. He was strongly encouraged to retry PAP therapy given severe LUIS F and CSA. Patient is willing to try PAP again. We will schedule in lab PAP titration study with TCO2 monitoring to determine optimal PAP settings. Diagnosis: Obstructive Sleep Apnea (G47.33) Accredited Scorer: Quiana Hatch I attest that I have reviewed this polysomnogram epoch by epoch, in accordance with AASM standards. Lyle Savage M.D. Sleep Medicine Fellow [facility] By signing this report, I certify that I have read this polysomnogram, edited the report, and agreewith the description of findings and interpretation contained in this written report. Nona Patel M.D. Professor of Neurology Diplomate, [employer]iat[employer] and Neu[employer] With added qualifications in Sleep Medicine documented in this encounter Plan of Treatment Scheduled Procedures Name Priority Associated Diagnoses Date/Ti me COLONOSCOPY Colon cancer screening COLONOSCOPY Colon cancer screening documented as of this encounter Procedures Procedure Name Priority Date/Time Associated Diagnosis Comments PSG (COMPLEX) Routine 09/07/2022 10:00 PM CDT LUIS F (obstructive sleep apnea) documented in this encounter Results * PSG (COMPLEX) (10/06/2022 9:00 PM CDT) Narrative Shoaib Thurston MD - 10/06/2022 9:00 PM CDT Shoaib Thurston MD ? 10/07/2022 ??8:41 AM PSG-Sleep Provider Use Only Date/Time: 10/06/2022 9:00 PM Performed by: Shoaib Thurston MD Authorized by: Lyle Savage MD ?? us Lyle Savage MD [facility] ORDERABLES Fi nal Result * PSG (COMPLEX) (09/07/2022 10:00 PM CDT) Narrative Nona Patel MD - 09/07/2022 10:00 PM CDT Nona Patel MD ? 09/09/2022 ??2:54 PM PSG-Sleep Provider Use Only Date/Time: 09/07/2022 10:00 PM Performed by: Nona Patel MD Authorized by: Hany Ch PA us Hany [facility] ORDERABLES Fin al Result documented in this encounter Visit Diagnoses Diagnosis LUIS F (obstructive sleep apnea)- Primary Obstructive sleep apnea (adult) (pediatric) Primary central sleep apnea Central sleep apnea due to medical condition- Primary LUIS F (obstructive sleep apnea) Obstructive sleep apnea (adult) (pediatric) documented in this encounter Care Teams Business Asst Relationship Specialty Start Date End Date Wendi Hawkins MD [address] [address] PCP - General Internal Medicine 09/05/21 04/27/23 documented as of this encounter
--- OUTSIDE RECORDS SUMMARY | 2024-06-25 13:56 | XMS_ITS | Encounter Summary ---
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 Gender Identity Not on file Sexual Orientation Not on file documented as of this encounter Miscellaneous Notes * Telephone Encounter - Abdon Eisenberg RPSGT - 09/21/2022 1:58 PM CDT Lvm for callback trying to schedule PAP titration documented in this encounter Plan of Treatment Scheduled Procedures Name Priority Associated Diagnoses Date/Ti me COLONOSCOPY Colon cancer screening COLONOSCOPY Colon cancer screening documented as of this encounter Visit Diagnoses Not on filedocumented in this encounter Care Teams Stock Turner Relationship Specialty Start Date End Date Wendi Hawkins MD [address] [place] [address] PCP - General Internal Medicine 09/05/21 04/27/23 documented as of this encounter
--- OUTSIDE RECORDS SUMMARY | 2024-06-25 13:56 | XMS_ITS | Encounter Summary ---
Author Organization [facility] Address [address] [place] [address] Phone Care Team Providers Care Shredded Filler Hopper Feeder Name Role Phone Wendi Hawkins MD Primary Care Provider Reason for Visit * Reason Onset Date Comments Follow-up 10/26/2022 Encounter Details Date Type Department Care Team (Late st Contact Info) Description 10/26/2022 Telephone [facility] Neuro Sleep [address] [facility] 6th [address] [place] [address] Jessica Elaine RN Follow-up Social History Tobacco Use Types Packs/Day Years [...] on file 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 He requested to speak to a human services supervisor and I forwarded the call to Jolene. States that he has spoken to/left 13 messages in the last 3 weeks. * Telephone Encounter - Jessica Elaine RN - 10/26/2022 11:32 AM CDT Jann, Mr Ritter would like a call from you today at [phone]. documented in this encounter Plan of Treatment Scheduled Procedures Name Priority Associated Diagnoses Date/Ti me COLONOSCOPY Colon cancer screening COLONOSCOPY Colon cancer screening documented as of this encounter Visit Diagnoses Not on filedocumented in this encounter Care Teams Shredded Filler Hopper Feeder Relationship Specialty Start Date End Date Wendi Hawkins MD [address] [place] [address] PCP - General Internal Medicine 09/05/21 04/27/23 documented as of this encounter
--- OUTSIDE RECORDS SUMMARY | 2024-06-25 13:56 | XMS_ITS | Encounter Summary ---
Author Organization [facility] Address [address] [place] [address] Phone Care Team Providers Care Kettle Operator Name Role Phone Wendi Hawkins MD Primary Care Provider Reason for Visit * Reason Onset Date Comments Scheduling Appointments 03/20/2022 Encounter Details Date Type Department Care Team (Late st Contact Info) Description 03/20/2022 Telephone [facility] Orthopaedic Surgery [address] [facility] 6th [place] [address] [place] [address] Claus Allen MD [facility] [place] [address] Scheduling Appointments Social History Tobacco Use Types Packs/Day Years Used Date Smoking Tobacco: Never Smokeless Tobacco: Never Alcohol Use Standard Drinks/Week Comments Yes 0 (1 standard drink = 0.6 oz pur e alcohol) AUDIT-C Answer Date Recorded Q1: How often do you have a drink containing alcohol? 4 or more times a week 10/28/2021 Q2: How many drinks containi ng alcohol do you have on a typical day when you are drinking? 1 or 2 Q3: How often do you have si x or more drinks on one occasion? 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 Allen Location: [facility], [address] [place] [address],[place] [address] Will you receive any vaccinations including the COVID booster 2 weeks prior to or 2 weeks after your scheduled procedure: No Allergic to x-ray contrast dye or local anesthetics: No Not Applicable Are you or plan on becoming prior to the scheduled procedure: No Blood thinners: Yes Aspirin Not Applicable Boxing Machine Operator: Not Applicable Diabetic: No Not Applicable Provided Pre-Procedure Instructions including arrival time: Yes Patient encouraged to call with issues/concerns. documented in this encounter Plan of Treatment Scheduled Procedures Name Priority Associated Diagnoses Date/Ti ak COLONOSCOPY Colon cancer screening COLONOSCOPY Colon cancer screening documented as of this encounter Visit Diagnoses Not on filedocumented in this encounter Care Teams Kettle Operator Relationship Specialty Start Date End Date Wendi Hawkins MD [address] [place] [address] PCP - General Internal Medicine 09/05/21 04/27/23 documented as of this encounter
--- OUTSIDE RECORDS SUMMARY | 2024-06-25 13:56 | XMS_ITS | Encounter Summary ---
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 documented in this encounter Plan of Treatment Scheduled Procedures Name Priority Associated Diagnoses Date/Ti me COLONOSCOPY Colon cancer screening COLONOSCOPY Colon cancer screening documented as of this encounter Visit Diagnoses Not on filedocumented in this encounter Care Teams Power Saw Mechanic Relationship Specialty Start Date End Date Wendi Hawkins MD [address] [place] [address] PCP - General Internal Medicine 09/05/21 04/27/23 documented as of this encounter
--- OUTSIDE RECORDS SUMMARY | 2024-06-25 13:56 | XMS_ITS | Encounter Summary ---
Author Organization [facility] Address [address] [place] [address] Phone Care Team Providers Care Doughnut Glazier Name Role Phone Wendi Hawkins MD Primary Care Provider Reason for Referral * Sleep Medicine (Routine) - Closed Specialty Diagnoses / Procedures Referred By Contmigue t Referred To Contact Diagnoses LUIS F (obstructive sleep apnea) Procedures PSG-Sleep Provider Use Only Hany Ch PA [address] [place] [address] Phone: tel: fax: [facility] (All Locations) Referral ID Status Reason Start Date Expiration Date Visits Re quested Visits Authorized [id number] Closed 06/23/2022 07/23/2023 1 1 ETING SPECIALIST Reason for Visit * Reason Comments Follow-up Encounter Details Date Type Department Care Team (Late st Contact Info) Description 06/23/2022 2:00 PM MARKETING SPECIALIST Office Visit [facility] Neuro Sleep [address] [facility] 6th [address] [place] [address] Hany Ch PA [address] [place] [address] LUIS F (obstructive sleep apnea) (Primary Dx); Intolerance of continuous positive airway pressure (CPAP) ventilation Social History Tobacco Use Types Packs/Day Years [...] on file Legal Sex Male 2:28 AM MARKETING SPECIALIST Gender Identity Not on file Sexual Orientation Not on file documented as of this encounter Last Filed Vital Signs Vital Sign Reading Time Taken Comments Blood Pressure 141/90 06/23/2022 1:50 PM MARKETING SPECIALIST Pulse 79 06/23/2022 1:50 PM MARKETING SPECIALIST Temperature 36.5 ??C (97.7 ??F) 06/23/2022 1:50 PM CS T Respiratory Rate - - Oxygen Saturation 96% 06/23/2022 1:50 PM MARKETING SPECIALIST Inhaled Oxygen Concentration - - Weight 108 kg (238 lb) 06/23/2022 1:50 PM MARKETING SPECIALIST Height 172.7 cm (5' 8 ) 06/23/2022 1:50 PM MARKETING SPECIALIST Body Mass Index 36.19 06/23/2022 1:50 PM MARKETING SPECIALIST documented in this encounter Progress Notes * Hany Ch PA - 06/23/2022 2:00 PM CST CC: here for sleep f/u HPI: Sean Ritter is a 61 y.o. male with a history of transient global amnesia, CAD s/p old LA, LV diastolic dysfunction, HTN, headache, chronic low back pain, cervical radiculopathy, allergic rhinitis,and depression who follows up today at our sleep center for sleep apnea that is currently untreated. He was diagnosed with sleep apnea on a split night PSG here on 02/19/15 which revealed an AHI of 27.9, RDI of 31.2, and O2 haley of 87%. The central apnea index was 15.3 events per hour. A pressure of4cwp was found to be the best pressure tested but no optimal setting was identified. He was startedon CPAP 4 cwp and struggled greater to use it due to claustrophobia. He was ultimately non-compliant with it at that time and has not been treated for numerous years. He returns today seeking an alternative to PAP therapy, in particular, Inspire therapy. Bedtime midnight Rise time 8a Estimated sleep latency is 5-10 minutes Multiple nocturnal awakenings per night Takes 3-5 minutes to return to sleep Takes naps 5 times per week for up to an hour The patient does not doze unintentionally while eating, in phone conversations, working at a computer, driving, in social situations. Sleepiness has not affected work or driving. [place] Sleepiness Scale (ESS) today is 10/24 which indicates abnormally high degree of sleepiness Personal Hx: Social History Tobacco Use Smoking Status Never Smokeless Tobacco Never PMH: Past Medical History: Diagnosis Date Arthritis Headache Old myocardial infarction History of non-ST elevation myocardial infarction (NSTEMI) - (Added by TW Conv) PSH: Past Surgical History: Procedure Laterality Date BACK SURGERY VT APPENDECTOMY Appendectomy - (Added by TW Conv) Family Hx: Family History Problem Relation Age of Onset Heart attack Brother Heart disease Mother Arthritis Mother Hypertension Mother Arthritis Father Allergies: No Known Allergies Current Meds: Current Outpatient Medications Medication Sig Dispense Refill amLODIPine (NORVASC) 5 mg tablet Take 1 tablet (5 mg total) by mouth daily 90 tablet 3 aspirin 81 mg chewable tablet Take 81 mg by mouth daily azelastine (ASTELIN) 137 mcg (0.1 %) nasal spray Administer 1 spray into each nostril 2 (two) timesa day Use in each nostril as directed 30 mL 0 benzonatate (TESSALON) 200 mg capsule TAKE 1 [...] NEEDED FOR MUSCLE SPASMS 30 tablet 0 metoprolol XL (TOPROL-XL) 100 mg 24 hr tablet Take 1 tablet (100 mg total) by mouth daily 90 tablet3 rosuvastatin (CRESTOR) 10 mg tablet Take 1 tablet (10 mg total) by mouth daily 90 tablet 3 timolol (TIMOPTIC) 0.5 % ophthalmic solution INSTILL 1 DROP INTO RIGHT EYE TWICE DAILY traMADoL (ULTRAM) 50 mg tablet Take 1 tablet (50 mg total) by mouth every 6 (six) hours 30 tablet 1 No current facility-administered medications for this visit. Review of Systems: Review of Systems Constitutional: Positive for unexpected weight change. HENT: Positive for congestion. Eyes: Negative. Respiratory: Negative. Cardiovascular: Negative. Gastrointestinal: Negative. + heartburn Endocrine: Negative. Genitourinary: Negative. Musculoskeletal: Positive for myalgias. + joint pain Skin: Negative. Neurological: Positive for headaches. Physical Exam: Vitals BP 141/90 (BP Location: Left arm, Patient Position: Sitting) Pulse 79 Temp 36.5 ??C (97.7 ??F) (Temporal) Ht 172.7 cm (5' 8 ) Wt 108 kg (238 lb) SpO2 96% BMI 36.19 kg/m?? Physical Exam Constitutional: Appearance: He is well-developed. HENT: Head: Normocephalic and atraumatic. Mouth/Throat: Comments: M4 posterior pharynx Eyes: Conjunctiva/sclera: Conjunctivae normal. Pupils: Pupils are equal, round, and reactive to light. Neck: Musculoskeletal: Normal range of motion and neck supple. Comments: Neck size is 17.5 inches Cardiovascular: Rate and Rhythm: Normal rate and regular rhythm. Heart sounds: Normal heart sounds. Pulmonary: Effort: Pulmonary effort is normal. Breath sounds: Normal breath sounds. Abdominal: General: Bowel sounds are normal. Palpations: Abdomen is soft. Musculoskeletal: Normal range of motion. Skin: General: Skin is warm and dry. Neurological: Mental Status: He is alert and oriented to person, place, and time. Cranial Nerves: No cranial nerve deficit. Psychiatric: Behavior: Behavior normal. Thought Content: Thought content normal. Judgment: Judgment normal. Assessment and Plan: LUIS F CPAP intolerance CAD This patient is a 61 year old male with a history of transient global amnesia, CAD (last LVEF 2020 60-65%), HTN, headache, chronic low back pain, cervical radiculopathy, allergic rhinitis, and depression who follows up today at our sleep center for sleep apnea that is currently untreated. He was previously diagnosed with LUIS F/CSA and struggled to use CPAP 4cwp. He is potentially interested in the Inspire device but, given the amount of central apneas he had on his previous sleep study, he may not be an appropriate candidate. His cardiac function has improved since that time and his central apneas may be less prevalent. - will order diagnostic PSG to see if he is a candidate for a hypoglossal nerve stimulator - No driving if sleepy was stressed to the patient - Our office will call the patient with results and discuss plan of care - f/u will be determined after sleep study results - The patient was given my card and was instructed to call with questions or concerns Follow Up: Return for to be determined after sleep study. Closing Thank you for allowing us to participate in eSan's care. Please do not hesitate to contact us should you have further questions ETING SPECIALIST documented in this encounter Plan of Treatment Scheduled Procedures Name Priority Associated Diagnoses Date/Ti me COLONOSCOPY Colon cancer screening COLONOSCOPY Colon cancer screening documented as of this encounter Results * PSG (COMPLEX) (09/07/2022 10:00 PM CDT) Narrative Nona Patel MD - 09/07/2022 10:00 PM CDT Nona Patel MD ? 09/09/2022 ??2:54 PM PSG-Sleep Provider Use Only Date/Time: 09/07/2022 10:00 PM Performed by: Nona Patel MD Authorized by: Hany Ch PA H[facility] ORDERABLES Fin al Result documented in this encounter Visit Diagnoses Diagnosis LUIS F (obstructive sleep apnea)- Primary Obstructive sleep apnea (adult) (pediatric) Intolerance of continuous positive airway pressure (CPAP) ventilation LUIS F (obstructive sleep apnea)- Primary Obstructive sleep apnea (adult) (pediatric) Primary central sleep apnea documented in this encounter Care Teams Doughnut Glazier Relationship Specialty Start Date End Date Wendi Hawkins MD [address] [place] [address] PCP - General Internal Medicine 09/05/21 04/27/23 documented as of this encounter
--- OUTSIDE RECORDS SUMMARY | 2024-06-25 13:56 | XMS_ITS | Encounter Summary ---
Author Organization [facility] Healthcare Address [address] [place] [address] Care Team Providers Care Applied Computer Science Professor Name Role Phone Wendi Hawkins MD Primary Care Provider Reason for Referral * Diagnostic Imaging (Routine) - Closed Specialty Diagnoses / Procedures Referred By Contac t Referred To Contact Diagnoses Right foot pain Procedures FL Fluoro Guided Aspiration or Injection Small Joint Right Metatarsal Phalangeal [place] ([place]) [place] [address] [place] [address] Phone: tel: fax: [address] [phone] Referral ID Status Reason Start Date Expiration Date Visits Re quested Visits Authorized [id number] Closed 03/19/2022 04/18/2023 1 1 Reason for Visit * Diagnostic Imaging (Routine) - Closed Specialty Diagnoses / Procedures Referred By Contac t Referred To Contact Diagnoses Right foot pain Procedures FL Fluoro Guided Aspiration or Injection Small Joint Right Metatarsal Phalangeal [place] ([place] [address] [place] [address] Phone: tel: fax: [address] [phone] Referral ID Status Reason Start Date Expiration Date Visits Re quested Visits Authorized [id number] Closed 03/19/2022 04/18/2023 1 1 Encounter Details Date Type Department Care Team (Latest Contact Info) Description 03/23/2022 10:37 AM CDT - 03/23/2022 11:59 PM CDT Hospital Encounter [facility] [address] [place] [address] Claus Allen MD [address] [facility] 6[address]/6B/12A [place] [address] Right foot pain (Primary Dx) Discharge Disposition: Discharge to home or self care Social History Tobacco Use Types Packs/Day Years [...] on file 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 Gender Identity Not on file Sexual Orientation Not on file documented as of this encounter Last Filed Vital Signs Vital Sign Reading Time Taken Comments Blood Pressure 147/81 03/23/2022 11:27 AM CDT Pulse 59 03/23/2022 11:27 AM CDT Temperature - - Respiratory Rate 16 03/23/2022 11:27 AM CDT Oxygen Saturation - - Inhaled Oxygen Concentration - - Weight - - Height - - Body Mass Index - - documented in this encounter Discharge Instructions * Patient Instructions* Claus Allen MD - 03/23/2022 10:40 AM CDT Post Procedure Instructions You received a steroid injection to your right 1st metatarsophalangeal (MTP) joint Your injection included: Ropivacaine (numbing medicine). The numbing medicine usually lasts for 4-6 hours. Triamcinolone/Kenalog (steroid medicine for inflammation and pain). The steroid will typically start working within the next several days but can take up to two weeks for the full effect. When you get home: Resume your normal diet For soreness, you may place an ice pack once an hour at the injection site for 15-20 minutes as needed You may shower To prevent infection, do not take a bath, swim or sit in a Jacuzzi or hot tub for the next two days Drink plenty of fluids to decrease a chance of a headache associated with steroids You may resume your physical therapy appointments in 24 hours Do not exercise for 24 hours, regular day-to-day activities are OK to perform Diabetic patients: Steroid injections may lead to higher blood glucose (sugar) levels temporarily. Most commonly, the higher levels will return to normal within 1-3 days, though effects may last longer. Rises in blood glucose levels may be more significant in patients with poorly controlled type 2 diabetes (those with HbA1c levels greater than 7) and those with type 1 diabetes. Check fasting (circulation clerk prior to first meal of the day) and post-prandial (following meals) blood glucose levels. Contact the physician who manages your diabetes if your blood sugar is significantly elevated (for example, over 100mg/dL higher than your pre- injection level) or if blood sugar levels remain significantly elevated 2 days after receiving the injection, to discuss whether a change in medication dosing is needed. For urgent concerns after hours, call our exchange at [phone]. For all other questions regarding the procedure, please call our office at [phone]. Pain Diary Please fill out the pain diary chart below and call or message via [facility] the medical provider whorequested the injection, Palomo , in two weeks. By how much has your pain improved after your injection? NOT IMPROVED IMPROVED A LITTLE IMPROVED A LITTLE MORE IMPROVED A LOT NO PAIN Immediately? 0% 20% 50% 80% 100% 6 hours after? 0% 20% 50% 80% 100% 24 hours after? 0% 20% 50% 80% 100% 4 days after? 0% 20% 50% 80% 100% 1 week after? 0% 20% 50% 80% 100% 10 days after? 0% 20% 50% 80% 100% 2 weeks after? 0% 20% 50% 80% 100% documented in this encounter Medications at Time of Discharge aspirin 81 mg chewable tablet Take 1 tablet (81 mg total) by mouth daily timolol (TIMOPTIC) 0.5 % ophthalmic solution INSTILL 1 DROP INTO RIGHT EYE TWICE DAILY 09/24/2021 traMADoL (ULTRAM) 50 mg tablet Take 1 tablet (50 mg total) by mouth every 6 (six) hours 30 tablet 1 12/04/2021 amLODIPine (NORVASC) 5 mg tablet Take 1 tablet (5 mg total) by mouth daily 90 tablet 3 10/28/2021 3 benzonatate (TESSALON) 200 mg capsule TAKE 1 CAPSULE BY MOUTH UP TO THREE TIMES DAILY NEEDED FOR COUGH 09/20/2021 3 brimonidine (ALPHAGAN) 0.2 % ophthalmic solution INSTILL 1 DROP INTO RIGHT EYE TWICE DAILY 09/24/2021 3 celecoxib (CeleBREX) 200 mg capsule Take 1 capsule by mouth twice daily 60 capsule 02/24/2022 3 cyclobenzaprine (FLEXERIL) 10 mg tablet TAKE 1 TABLET BY MOUTH THREE TIMES DAILY NEEDED FOR MUSCLE SPASMS 30 tablet 07/25/2020 3 fluticasone propionate (FLONASE) 50 mcg/actuation nasal spray Administer 1 spray into each nostril daily 16 g 5 01/12/2022 2 methylPREDNISolo ne (MEDROL DOSEPACK) 4 mg Dosepack TAKE BY MOUTH DIRECTED ON INSIDE OF PACKAGE 02/09/2022 2 metoprolol XL (TOPROL-XL) 100 mg 24 hr tablet Take 1 tablet (100 mg total) by mouth daily 90 tablet 3 10/28/2021 3 rosuvastatin (CRESTOR) 10 mg tablet Take 1 tablet (10 mg total) by mouth daily 30 tablet 11 11/02/2021 2 triamcinolone (NASACORT) 55 mcg nasal inhalerIndicatio ns:Allergic Rhinitis Administer 2 sprays into each nostril daily 16.9 mL 1 03/19/2021 2 documented as of this encounter Discharge Disposition Disposition Code Departure Means Destination Discharge to home or self care documented in this encounter Progress Notes * Claus Allen MD - 03/23/2022 10:40 AM CDT Right Fluoroscopically-Guided 1st Metatarsophalangeal (MTP) Joint Injection [facility] Department of Orthopedic Surgery Division of Physical Medicine and Rehabilitation Patient name: Sean Ritter Date of : 1960 Date of service: 03/23/2022 Sean Ritter presents to the fluoroscopy suite for a fluoroscopically guided right 1st metatarsophalangeal (MTP) joint injection as part of conservative treatment for foot pain. After informed consent was obtained, the patient was placed in the supine position on the fluoroscopy table. The right 5th MTP joint was located under fluoroscopic guidance. The area was prepped with chlorhexidine and draped in sterile fashion. No local anesthetic was used. Then, a 25 gauge 2 inch needle was advanced into the joint under fluoroscopic guidance. Confirmation into the joint capsule was attained with the infusion of 0.25 mL of Optiray contrast, which showed capsular flow on two separate fluoroscopic views. Then, a combination of 40 mg of 40 mg/mL Kenalog and 1 mL of 1.0 % lidocaine was infused. The patient tolerated the procedure without complications. Pre and post procedure blood pressures were stable. The patient was given a pain diary with follow-up instructions. At the time of discharge following today's procedure, the patient was able to ambulate at their pre-procedure level and denied ongoing nausea, vomiting, or dizziness. Prior to the start of the procedure, verbal verification by the procedure participant(s) confirmed (as applicable): correct patient identity; correct site/side marked and visible; agreement on the procedure to be done; correct patient positioning; an accurate signed procedure consent form, relevantimages and results correctly labeled and displayed; any safety precautions based on clinical history and/or medication use have been addressed. Fluoroscopic guidance was used to assist right 1st MTP joint injection. Confirmation into the jointcapsule was attained with the infusion of 0.25 mL of Conray contrast, which showed capsular flow. There was no vascular or extra- articular flow noted. The above patient was seen and evaluated with Dr. Jorge Quintero who participated in performing the procedure. I was present for the entire procedure. I personally performed or was present for the entire procedure above. Claus Allen MD documented in this encounter Plan of Treatment Scheduled Procedures Name Priority Associated Diagnoses Date/Ti me COLONOSCOPY Colon cancer screening COLONOSCOPY Colon cancer screening documented as of this encounter Procedures Procedure Name Priority Date/Time Associated Diagnosis Comments FLUORO GUIDED ASPIRATION OR INJECTION SMALL JOINT RIGHT Schedule Routine, Read Routine (OP Routine) 03/23/2022 11:22 AM CDT Right foot pain documented in this encounter Results * FL Fluoro Guided Aspiration or Injection Small Joint Right Metatarsal Phalangeal Joint (MTP) (03/23/2022 11:22 AM CDT) Narrative [facility] - 03/23/2022 11:23 AM CDT The images from this study are not interpreted by Radiology. ??Please refer to the physician's procedure / OR operative note. us Palomo Gupta ACCIDENT EXAMINER IMG FLUOROSCOPY PROCEDURES Final Result [facility] documented in this encounter Visit Diagnoses Diagnosis Right foot pain- Primary Pain in soft tissues of limb documented in this encounter Care Teams Applied Computer Science Professor Relationship Specialty Start Date End Date Wendi Hawkins MD [address] [place] [address] PCP - General Internal Medicine 09/05/21 04/27/23 documented as of this encounter
--- OUTSIDE RECORDS SUMMARY | 2024-06-25 13:56 | XMS_ITS | Encounter Summary ---
Author Organization [facility] Address [address] [place] [address] Phone Care Team Providers Care Hand Singer Name Role Phone Wendi Hawkins MD Primary Care Provider Reason for Visit * Reason Onset Date Comments Scheduling Appointments 03/19/2022 Encounter Details Date Type Department Care Team (Late st Contact Info) Description 03/19/2022 Telephone [facility] Orthopaedic Surgery [address] [facility] Medical Office [address] [place] [address] Mike Glass, RN Scheduling Appointments Social History Tobacco Use Types [...] on file 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 No response, so left voice mail requesting a call back. documented in this encounter Plan of Treatment Scheduled Procedures Name Priority Associated Diagnoses Date/Ti ca COLONOSCOPY Colon cancer screening COLONOSCOPY Colon cancer screening documented as of this encounter Visit Diagnoses Not on filedocumented in this encounter Care Teams Hand Singer Relationship Specialty Start Date End Date Wendi Hawkins MD [address] [place] [address] PCP - General Internal Medicine 09/05/21 04/27/23 documented as of this encounter
--- OUTSIDE RECORDS SUMMARY | 2024-06-25 13:57 | XMS_ITS | Encounter Summary ---
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 Gender Identity Not on file Sexual Orientation Not on file documented as of this encounter Medications at Time of Discharge aspirin 81 mg chewable tablet Take 1 tablet (81 mg total) by mouth daily timolol (TIMOPTIC) 0.5 % ophthalmic solution INSTILL 1 DROP INTO RIGHT EYE TWICE DAILY 09/24/2021 amLODIPine (NORVASC) 5 mg tablet Take 1 [...] capsule by mouth twice daily 60 capsule 08/28/2021 2 cyclobenzaprine (FLEXERIL) 10 mg tablet TAKE 1 TABLET BY MOUTH THREE TIMES DAILY NEEDED FOR MUSCLE SPASMS 30 tablet 07/25/2020 3 metoprolol XL (TOPROL-XL) 100 mg 24 hr tablet Take 1 tablet (100 mg total) by mouth daily 90 tablet 3 10/28/2021 3 pravastatin (PRAVACHOL) 10 mg tablet Take 1 tablet by mouth once daily 90 tablet 08/28/2021 2 traMADoL (ULTRAM) 50 mg tablet TAKE 1 TABLET BY MOUTH EVERY 6 HOURS 30 tablet 05/30/2021 2 triamcinolone (NASACORT) 55 mcg nasal inhalerIndicatio ns:Allergic Rhinitis Administer 2 sprays into each nostril daily 16.9 mL 1 03/19/2021 2 documented as of this encounter Discharge Disposition Disposition Code Departure Means Destination Discharge to home or self care documented in this encounter Plan of Treatment Scheduled Procedures Name Priority Associated Diagnoses Date/Ti me COLONOSCOPY Colon cancer screening COLONOSCOPY Colon cancer screening documented as of this encounter Procedures Procedure Name Priority Date/Time Associated Diagnosis Comments HIV 1/2 ANTIBODY PLUS P24 ANTIGEN Routine 10/28/2021 11:59 AM CDT HIV screening declined documented in this encounter Results * HIV 1/2 Antibody plus p24 Antigen Blood (10/28/2021 11:59 AM CDT) Pathologist [facility] HIV 1/2 ab + p24 ag Nonreactive Nonreactive [facility] Comment: Nonreactive for HIV-1 antigen and HIV-1/HIV-2 antibodies. No laboratory evidence of HIV infection. If acute HIV infection is suspected, consider testing for HIV-1 RNA. Blood 10/28/2021 11:5 9 AM CDT 10/28/2021 12:14 PM CDT us Wendi Hawkins MD LAB MICROBIOLOGY - GEN ERAL ORDERABLES Final Result [facility] Department [place] [address] documented in this encounter Visit Diagnoses Diagnosis HIV screening declined documented in this encounter Care Teams Back Filler Operator Relationship Specialty Start Date End Date Wendi Hawkins MD [address] [place] [address] PCP - General Internal Medicine 09/05/21 04/27/23 documented as of this encounter
--- OUTSIDE RECORDS SUMMARY | 2024-06-25 13:57 | XMS_ITS | Encounter Summary ---
Author Organization [facility] Healthcare Address [address] [place] [address] Care Team Providers Care Anesthesia Associate Name Role Phone Pal Russell MD Primary Care Provider [phone] Encounter Details Date Type Department Care Team (Late st Contact Info) Description 03/19/2021 1:25 PM CDT Lab [address] [address] Exposure to SARS-associated coronavirus Social History Tobacco Use Types Packs/Day Years Used Date Smoking Tobacco: Never Smokeless Tobacco: Never Alcohol Use Standard Drinks/Week Comments Yes 0 (1 standard drink = 0.6 oz pur e alcohol) PHQ-2 Answer Date Recorded PHQ-2 Total Score (If total score is 3 or more points, staff should administer the PHQ-9) 0 03/05/2021 Sex and Gender Information Value Date Recorded Sex Assigned at Not on file 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 Male 2:28 AM RN RADIATION Gender Identity Not on file Sexual Orientation Not on file documented as of this encounter Plan of Treatment Scheduled Procedures Name Priority Associated Diagnoses Date/Ti me COLONOSCOPY Colon cancer screening COLONOSCOPY Colon cancer screening documented as of this encounter Procedures Procedure Name Priority Date/Time Associated Diagnosis Comments COVID-19 CORONAVIRUS RNA Routine 03/19/2021 10:19 AM CDT Exposure to SARS-associated coronavirus INFLUENZA A/B AND RSV PCR Routine 03/19/2021 10:19 AM CDT Exposure to SARS-associated coronavirus documented in this encounter Results * (ABNORMAL) COVID-19 Coronavirus RNA Nasopharyngeal (03/19/2021 10:19 AM CDT) COVID-19 RNA Positive( A) Negative [facility] Comment: Interpretive data: Synonyms for this test include: PCR and NAAT . ??This test is performed using the [employer] Xpert Xpress assay. This is a real-time RT-PCR test intended for the qualitative detection of nucleic acid from the SARS-CoV-2. This assay has been reviewed by the FDA for Emergency Use Authorization (EUA). The performance characteristics have been verified by the performing laboratory. Results must be considered in the clinical context and a negative result does not rule out infection. Interpretive data last revised July 25, 2020. First COVID-19 test? No [facility] Employeed in healthcare? No [facility] status? No [facility] Group care resident? No [facility] Hospitalized? No [facility] Is patient in ICU? No [facility] Symptomatic as defined by CDC? Yes [facility] Nasopharyngeal 03/19/2021 10 :19 AM CDT 03/19/2021 3:11 PM CDT Narrative [facility] - 03/19/2021 4:32 PM CDT What is the reason for testing?->Symptoms of COVID-19 in high-risk group Date of Symptom Onset->03/19/21 us Moriah Turner NP LAB MICROBIOLOGY - GEN ERAL ORDERABLES Final Result Performing Organization Address City/State/[facility] Co de Phone Number [facility] Department [place] [address] * Influenza A/B and RSV PCR Nasopharyngeal (03/19/2021 10:19 AM CDT) Influenza A RNA Negative Negative [facility] Influenza B RNA Negative Negative [facility] RSV RNA Negative Negative [facility] Comment: Interpretive Data Testing performed by the [facility] Molecular Infectious Disease Laboratory. ??This test is performed using the [employer] Influenza A/B and RSV Assay. ??This is a real-time RT-PCR test for the qualitative detection of nucleic acid from Influenza A, Influenza B, and RSV. ??This assay has been cleared by the FDA for routine clinical use. ??The performance characteristics have been verified by the [facility] Laboratory. ?? Results should be interpreted in combination with clinical context and a negative result does not rule out infection. Interpretive data last revised 2020. Nasopharyngeal 03/19/2021 10 :19 AM CDT 03/19/2021 3:11 PM CDT Moriah Turner CERAMIC CAPACITOR PROCESSOR LAB MICROBIOLOGY - GEN ERAL ORDERABLES Final Result [facility] Department [place] [address] documented in this encounter Visit Diagnoses Diagnosis Exposure to SARS-associated coronavirus documented in this encounter Additional Health Concerns Infection Onset Date Last Indicated Resolved Time COVID19 Comment:Patient has documented SpO2 < 94% which requires supplemental oxygen. Based on a S&S onset date of 02/15/21 plus the need for supplemental oxygen this patient is first eligible for COVID: Recovered evaluation on 03/08/21. HARJINDER Martinez Added from the Screening question BPA, identifying patients that tested positive for COVID in the last 14 days and the result is from a facility outside [facility] . 02/25/2021 03/19/2021 04/02/2021 3:05 AM CDT documented as of this encounter Care Teams Anesthesia Associate Relationship Specialty Start Date End Date Pal Russell MD PCP - General 06/08/17 09/04/21 documented as of this encounter
--- OUTSIDE RECORDS SUMMARY | 2024-06-25 13:57 | XMS_ITS | Encounter Summary ---
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 I would like him to change from pravastatin to rosuvastatin. He should not have side effects on rosuvastatin and it will work better. The rest of your labs look great! Any remaining results flagged as abnormal are not significant. documented in this encounter Plan of Treatment Scheduled Procedures Name Priority Associated Diagnoses Date/Ti me COLONOSCOPY Colon cancer screening COLONOSCOPY Colon cancer screening documented as of this encounter Visit Diagnoses Not on filedocumented in this encounter Care Teams Irrigationist Relationship Specialty Start Date End Date Wendi Hawkins MD [address] [place] [address] PCP - General Internal Medicine 09/05/21 04/27/23 documented as of this encounter
--- OUTSIDE RECORDS SUMMARY | 2024-06-25 13:57 | XMS_ITS | Encounter Summary ---
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 Gender Identity Not on file Sexual Orientation Not on file documented as of this encounter Ordered Prescriptions Prescription Sig Dispense Quantity Refills Last Filled Start Date End Date rosuvastatin (CRESTOR) 10 mg tablet Take 1 tablet (10 mg total) by mouth daily 30 tablet 11 11/02/2021 04/07/2022 documented in this encounter Plan of Treatment Scheduled Procedures Name Priority Associated Diagnoses Date/Ti me COLONOSCOPY Colon cancer screening COLONOSCOPY Colon cancer screening documented as of this encounter Visit Diagnoses Not on filedocumented in this encounter Discontinued Medications Medication Sig Discontinue Reason Start Date End Da te pravastatin (PRAVACHOL) 10 mg tablet Take 1 tablet by mouth once daily 08/28/2021 11/02/2021 documented as of this encounter Care Teams Websphere Portal Developer Relationship Specialty Start Date End Date Wendi Hawkins MD [address] [place] [address] PCP - General Internal Medicine 09/05/21 04/27/23 documented as of this encounter
--- OUTSIDE RECORDS SUMMARY | 2024-06-25 13:57 | XMS_ITS | Encounter Summary ---
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
--- OUTSIDE RECORDS SUMMARY | 2024-06-25 13:57 | XMS_ITS | Encounter Summary ---
Author Organization [facility] Address [address] [place] [address] Phone Care Team Providers Care Directional Drill Operator Name Role Phone Pal Russell MD Primary Care Provider [phone] Encounter Details Date Type Department Care Team (Late st Contact Info) Description 03/21/[address] 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 Gender Identity Not on file Sexual Orientation Not on file documented as of this encounter Ordered Prescriptions Prescription Sig Dispense Quantity Refills Last Filled Start Date End Date amoxicillin-clavul anate (AUGMENTIN) 875-125 mg per tabletIndications: Upper Respiratory/HEENT Infection Take 1 tablet by mouth 2 (two) times a day for 7 days 14 tablet 03/21/2021 03/28/2021 documented in this encounter Progress Notes * Moriah Turner NP - 03/21/2021 12:25 PM CDT AntiBx sent in Quarantine extended for one week documented in this encounter Plan of Treatment Scheduled Procedures Name Priority Associated Diagnoses Date/Ti me COLONOSCOPY Colon cancer screening COLONOSCOPY Colon cancer screening documented as of this encounter Visit Diagnoses Diagnosis Acute non-recurrent maxillary sinusitis- Primary documented in this encounter Additional Health Concerns [...] the result is from a facility outside [facility] . 02/25/2021 03/19/2021 04/02/2021 3:05 AM CDT documented as of this encounter Care Teams Directional Drill Operator Relationship Specialty Start Date End Date Pal Russell MD PCP - General 06/08/17 09/04/21 documented as of this encounter
--- OUTSIDE RECORDS SUMMARY | 2024-06-25 13:57 | XMS_ITS | Encounter Summary ---
Author Organization [facility] Address [address] [place] [address] Phone Care Team Providers Care Tin Cutter Name Role Phone Wendi Hawkins MD Primary Care Provider Encounter Details Date Type Department Care Team (Late st Contact Info) Description 10/28/2021 9:20 AM CDT Office Visit 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 Gender Identity Not on file Sexual Orientation Not on file documented as of this encounter Last Filed Vital Signs Vital Sign Reading Time Taken Comments Blood Pressure 140/90 10/28/2021 9:45 AM CDT Pulse 66 10/28/2021 9:45 AM CDT Temperature - - Respiratory Rate - - Oxygen Saturation - - Inhaled Oxygen Concentration - - Weight 103.9 kg (229 lb) 10/28/2021 9:45 AM CDT Height 172.7 cm (5' 8 ) 10/28/2021 9:45 AM CDT Body Mass Index 34.82 10/28/2021 9:45 AM CDT documented in this encounter Ordered Prescriptions Prescription Sig Dispense Quantity Refills Last Filled Start Date End Date metoprolol XL (TOPROL-XL) 100 mg 24 hr tablet Take 1 tablet (100 mg total) by mouth daily 90 tablet 3 10/28/2021 11/09/2022 amLODIPine (NORVASC) 5 mg tablet Take 1 tablet (5 mg total) by mouth daily 90 tablet 3 10/28/2021 10/26/2022 documented in this encounter Progress Notes * Wendi Hawkins MD - 10/28/2021 9:20 AM CDT MEDICARE SUBSEQUENT ANNUAL WELLNESS VISIT Subjective/Objective Patient ID: Sean Ritter is a 61 y.o. male. Chief Complaint Preventive HPI 61 yo man with PMhx of HTN, HLD, LUIS F, non-obstructive CAD who presents for comprehensive review. Prior pt of Dr. Russell. Medicare Health Risk Assessment Basic Information In general, would you say your health is: Fair Do you have an advance directive, such as a living will or durable power of deputy prosecuting attorney?: No Would you like information regarding Advanced Directiv (Living Will) and/or Durable Power of Geography Department Chair?: No Do you have to strain or struggle to hear/understand conversations?: No Have you experienced any of the following problems currently or recently? Eating: No Grooming: No Bathing: No Walking: No Using the toilet: No Memory problems: No Difficulty speaking: No Have you experienced any of the following problems currently or recently? Laundry and/or housekeeping: No Handling Money: No Shopping: No Food preparation: No Transportation: No Taking and/or getting your own medications: No Hx of L rotator cuff tear on the L. He was going to have surgery, but then had COVID and never followed up. He never did PT. He was lifting a heavy Auger a couple weeks ago and heard a pop. He has pain in his anterior shoulder radiating down his L arm. He cannot sleep on this arm. He is taking celebrex and some left over tramadol for this. He has persistent changes in taste from COVID. He has some persistent sinus congestion. No chest discomfort or shortness of breath. He has poor energy. He needs to nap during the day. BP at home 120-150/85-100 Past Medical History: Diagnosis Date ??? Arthritis ??? Headache ??? Old myocardial infarction History of non-ST elevation myocardial infarction (NSTEMI) - (Added by PATI Conv) Past Surgical History: Procedure Laterality Date ??? BACK SURGERY ??? NC APPENDECTOMY Appendectomy - (Added by PATI Conv) No Known Allergies Current Outpatient Medications Medication Sig Dispense Refill ??? albuterol HFA (ProAir HFA) 90 mcg/actuation inhaler Inhale 2 puffs every 4 (four) hours as needed for wheezing or shortness of breath 8.5 g 1 ??? amLODIPine (NORVASC) 10 mg tablet Take 1 tablet (10 mg total) by mouth daily 90 tablet 3 ??? aspirin 325 mg tablet Take 325 mg by mouth daily ??? benzonatate (TESSALON) 200 mg capsule TAKE 1 CAPSULE BY MOUTH UP TO THREE TIMES DAILY NEEDEDFOR COUGH ??? brimonidine (ALPHAGAN) 0.2 % ophthalmic solution INSTILL 1 DROP INTO RIGHT EYE TWICE DAILY ??? celecoxib (CeleBREX) 200 mg capsule Take 1 capsule by mouth twice daily 60 capsule 0 ??? cyclobenzaprine (FLEXERIL) 10 mg tablet TAKE 1 TABLET BY MOUTH THREE TIMES DAILY NEEDED FOR MUSCLE SPASMS 30 tablet 0 ??? fluticasone propionate (FLONASE) 50 mcg/actuation nasal spray USE 1 SPRAY(S) IN EACH NOSTRIL TWICE DAILY ??? metoprolol XL (TOPROL-XL) 100 mg 24 hr tablet Take 1 tablet by mouth once daily 30 tablet 0 ??? ondansetron ODT (ZOFRAN-ODT) 4 mg disintegrating tablet Dissolve 1 tablet for mild to moderate nausea or vomiting or 2 tablets for severe nausea or vomiting oral twice a day as needed. 15 tablet 0 ??? pravastatin (PRAVACHOL) 10 mg tablet Take 1 tablet by mouth once daily 90 tablet 0 ??? predniSONE (DELTASONE) 50 mg tablet TAKE 1 TABLET BY MOUTH ONCE DAILY FOR 5 DAYS ??? timolol (TIMOPTIC) 0.5 % ophthalmic solution INSTILL 1 DROP INTO RIGHT EYE TWICE DAILY ??? traMADoL (ULTRAM) 50 mg tablet TAKE 1 TABLET BY MOUTH EVERY 6 HOURS 30 tablet 0 ??? triamcinolone (NASACORT) 55 mcg nasal inhaler Administer 2 sprays into each nostril daily 16.9 mL 1 ??? montelukast (SINGULAIR) 10 mg tablet Take 1 tablet (10 mg total) by mouth nightly 30 tablet 11 ??? traZODone (DESYREL) 50 mg tablet Take 1 tablet (50 mg total) by mouth nightly as needed for sleep 30 tablet 3 No current facility-administered medications for this visit. Family History Problem Relation Age of Onset ??? Heart attack Brother ??? Heart disease Mother ??? Arthritis Mother ??? Hypertension Mother ??? Arthritis Father Social History Tobacco Use ??? Smoking status: Never Smoker ??? Smokeless tobacco: Never Used Substance Use Topics ??? Alcohol use: Yes ??? Drug use: Never reports being sexually active and has had partner(s) who are female. He reports using the followingmethod of control/protection: None. Review of Systems Review of Systems Constitutional: Negative for fever and weight loss. Respiratory: Negative for cough and shortness of breath. Cardiovascular: Negative for chest pain, orthopnea and leg swelling. Gastrointestinal: Negative for abdominal pain, blood in stool, constipation, diarrhea, nausea and vomiting. Genitourinary: Negative for dysuria, frequency, hematuria and urgency. Musculoskeletal: Positive for joint pain. Negative for myalgias. Neurological: Negative for sensory change, focal weakness, loss of consciousness and headaches. Psychiatric/Behavioral: The patient does not have insomnia. Physical Exam Vitals BP 140/90 Pulse 66 Ht 172.7 cm (5' 8 ) Wt 103.9 kg (229 lb) BMI 34.82 kg/m?? General: Well-nourished and in no acute distress HENT: NCAT, MMM, hearing grossly intact. Eyes: No scleral icterus. PERRL, EOMI. Neck: Supple, thyroid normal size without palpable nodules Lymph: No cervical LAD CV: RRR, S1 and S2 present without murmurs, rubs or gallops. Pulmonary: Normal effort. Clear to auscultation bilaterally without wheezes or crackles. Abdomen: Soft and non-tender without palpable organomegaly. Extremities: No clubbing, cyanosis or edema. Shoulder: No deformities noted. ROM is normal to elevation, abduction, internal and external rotation. no TTP noted over biceps tendon. no TTP noted over AC joint. Internal lag test is neg bilat, push off test is pos for pain on L, external lag test is neg bilat, Job's test is neg bilat. Skin: Warm and dry. No rashes or wounds. Neuro: A&Ox4. Normal gait. Psych: Normal affect. Assessment/Plan Diagnoses and all orders for this visit: Medicare annual wellness visit, subsequent (Primary) Assessment & Plan: - Depression screen: PHQ Screening PHQ-2 Total [...] be reviewed with patient when results available. Colon cancer screening - Direct Scheduling Case Request: COLONOSCOPY Pure hypercholesterolemia Assessment & Plan: Lab Results Component Value Date CHOL 226 (H) 10/20/2019 Lab Results Component Value Date HDL 48 10/28/2021 HDL 54 10/20/2019 Lab Results Component Value Date LDLCALC 163 10/28/2021 LDL 146 (H) 10/20/2019 Lab Results Component Value Date TRIG 143 10/28/2021 TRIG 132 10/20/2019 TRIG 128 03/30/2016 - stop pravastatin, start rosuvastatin 10mg every day Orders: - Lipid panel; Future Benign essential HTN Assessment & Plan: BP above goal <130/80. - Current medication regimen: cont amlodipine 5mg every day, metoprolol XL 100mg every day - asked pt to send home Bps. - Counseled regarding lifestyle measures to control HTN including low salt diet rich in fruits and vegetables, limiting alcohol use, regular exercise, and weight loss of 5-10% if pt is obese. Orders: - Comprehensive metabolic panel; Future - CBC with auto differential; Future Abnormal blood chemistry - Hemoglobin A1c; Future Thyroid disorder screen - TSH; Future Prostate cancer screening - PSA screen; Future Encounter for screening for HIV - HIV 1/2 Antibody plus p24 Antigen Blood; Future Encounter for hepatitis C screening test for low risk patient - Hepatitis C antibody; Future Obstructive sleep apnea syndrome in adult Assessment & Plan: rec that he follow-up with sleep medicine for follow-up PSG. Traumatic incomplete tear of left rotator cuff, initial encounter Assessment & Plan: Suspect that he reinjured his shoulder. Rec that he follow-up with ortho. In the meantime, can takecyclobenzaprine 10mg tid prn, celebrex 200mg bid prn for pain, tramadol 50mg q6h prn for pain (prescribed by Dr. Fregoso) Other orders - amLODIPine (NORVASC) 5 mg tablet; Take 1 tablet (5 mg total) by mouth daily - metoprolol XL (TOPROL-XL) 100 mg 24 hr tablet; Take 1 tablet (100 mg total) by mouth daily Detection of Cognitive Impairment: The patient does not have cognitive impairment based on direct observation, discussion with patientor family, or review of medical records. Health Maintenance: Counseling and Referral of Preventative Services: Routine health maintenance objectives discussed and orders placed for any outstanding screening studies.Physical exam performed as above. Routine annual labs obtained and will be reviewed with patient when results available. Lifestyle Recommendations Increase Physical Activity, Reduce Weight and Improve Diet Advanced Directive Durable Power of Geography Department Chair: Discussed Today: Living Will: Discussed Today: Patient here for annual Medicare wellness visit and for review of complete medical problem list. All the elements of the plan were completed as outlined by CMS. A copy of the prevention plan was given to the patient. I reviewed the Medicare Wellness Questionnaire (other physicians involved in care,depression screen, advanced directives), cognitive/memory, and functional assessment. I reviewed and updated the complete problem list, medication list, family history, and immunization records with the patient. I provided preventive counseling and early detection interventions to the patient through health maintenance update and summary of today's office visit. My total encounter time was 15 minutes which was spent addressing any abnormal findings and/ or preexisting problems as documented in the note. This includes time spent in the direct care of the patient. This time does not include time spent in any separately reported services including the well visit. Return in about 3 months (around 01/28/2022) for Recheck.. Return sooner if needed. Wendi Hawkins MD documented in this encounter Miscellaneous Notes * Assessment & Plan Note - Wendi Hawkins MD - 01/11/2022 8:21 PM CDT Associated Problem(s): Traumatic tear of left rotator cuff Suspect that he reinjured his shoulder. Rec that he follow-up with ortho. In the meantime, can takecyclobenzaprine 10mg tid prn, celebrex 200mg bid prn for pain, tramadol 50mg q6h prn for pain (prescribed by Dr. Fregoso) * Assessment & Plan Note - Wendi Hawkins MD - 01/11/2022 8:20 PM CDT Associated Problem(s): Obstructive sleep apnea syndrome in adult rec that he follow-up with sleep medicine for follow-up PSG. * Assessment & Plan Note - Wendi Hawkins MD - 01/11/2022 8:17 PM CDT Associated Problem(s): Hyperlipidemia Lab Results Component Value Date CHOL 226 (H) 10/20/2019 Lab Results Component Value Date HDL 48 10/28/2021 HDL 54 10/20/2019 Lab Results Component Value Date LDLCALC 163 10/28/2021 LDL 146 (H) 10/20/2019 Lab Results Component Value Date TRIG 143 10/28/2021 TRIG 132 10/20/2019 TRIG 128 03/30/2016 - stop pravastatin, start rosuvastatin 10mg every day * Assessment & Plan Note - Wendi Hawkins MD - 01/11/2022 8:15 PM CDT Associated Problem(s): Chronic coronary artery disease [facility] in 2007 showed 40% CAD in LAD and 30% in RCA and LCx with slow flow in RCA. - Cont medication management with ASA 81mg every day, consider changing to high intensity statin pending lipid panel. * Assessment & Plan Note - Wendi Hawkins MD - 01/11/2022 8:13 PM CDT Associated Problem(s): Benign essential HTN BP above goal <130/80. - Current medication regimen: cont amlodipine 5mg every day, metoprolol XL 100mg every day - asked pt to send home Bps. - Counseled regarding lifestyle measures to control HTN including low salt diet rich in fruits and vegetables, limiting alcohol use, regular exercise, and weight loss of 5-10% if pt is obese. * Assessment & Plan Note - Wendi Hawkins MD - 10/28/2021 10:08 AM CDT Associated Problem(s): Medicare annual wellness visit, subsequent - Depression screen: PHQ Screening PHQ-2 Total [...] be reviewed with patient when results available. documented in this encounter Plan of Treatment Scheduled Procedures Name Priority Associated Diagnoses Date/Ti me COLONOSCOPY Colon cancer screening COLONOSCOPY Colon cancer screening documented as of this encounter Procedures Procedure Name Priority Date/Time Associated Diagnosis Comments PSA SCREEN Routine 10/28/2021 10:25 AM CDT Prostate cancer screening CBC WITH AUTO DIFFERENTIAL Routine 10/28/2021 10:25 AM CDT Benign essential HTN HEPATITIS C ANTIBODY Routine 10/28/2021 10:25 AM CDT Encounter for hepatitis C screening test for low risk patient TSH Routine 10/28/2021 10:25 AM CDT Thyroid disorder screen HEMOGLOBIN A1C Routine 10/28/2021 10:25 AM CDT Abnormal blood chemistry LIPID PANEL Routine 10/28/2021 10:25 AM CDT Pure hypercholesterolemia COMPREHENSIVE METABOLIC PANEL Routine 10/28/2021 10:25 AM CDT Benign essential HTN documented in this encounter Results * HIV 1/2 Antibody plus p24 Antigen Blood (10/28/2021 11:59 AM CDT) HIV 1/2 ab + p24 ag Nonreactive Nonreactive [facility] Comment: Nonreactive for HIV-1 antigen and HIV-1/HIV-2 antibodies. No laboratory evidence of HIV infection. If acute HIV infection is suspected, consider testing for HIV-1 RNA. Blood 10/28/2021 11:5 9 AM CDT 10/28/2021 12:14 PM CDT Wendi Hawkins MD LAB MICROBIOLOGY - GEN ERAL ORDERABLES Final Result Performing Organization Address City/[facility]/ZIP Co de Phone Number [facility] Department [place] [address] * Hepatitis C antibody (10/28/2021 10:25 AM CDT) Pathologist [facility] [place] A-HCV II 0.06 Negative <0.90 [facility] Comment: <=0.9 negative 0.9-<1.0 borderline ?? >= 1 positive Blood specimen (specimen) 10/28/2021 10:25 AM CDT 10/28/2021 10:28 AM CDT Wendi Hawkins MD LAB MICROBIOLOGY - GEN ERAL ORDERABLES Final Result Performing Organization Address [facility] Co de Phone Number [facility] [address] [place] [address] * PSA screen (10/28/2021 10:25 AM CDT) Pathologist [facility] [place] PSA, Total 0.6 0.0 - 4.0 ng/mL [facility] Blood specimen (specimen) 10/28/2021 10:25 AM CDT 10/28/2021 10:28 AM CDT Wendi Hawkins MD LAB BLOOD ORDERABLES F inal Result Performing Organization Address City/[facility]/ZIP Co de Phone Number [facility] [address] [place] [address] * (ABNORMAL) CBC with auto differential (10/28/2021 10:25 AM CDT) WBC 7.1 3.5 - 10.0 K/uL [facility] RBC 4.80 4.60 - 6.20 M/uL [facility] Hemoglobin 14.1 13.9 - 17.7 g/dL [facility] Hematocrit 43.4 35.0 - 55.0 % [facility] MCV 90.5 75.0 - 100.0 fL [facility] MCH 29.40 25.00 - 35.00 pg [facility] MCHC 32.50 31.00 - 38.00 g/dL [facility] RDW 13.0 11.0 - 16.0 % [facility] Platelets 257 140 - 400 K/uL [facility] MPV 7.8(L) 8.0 - 11.0 fL [facility] Granulocyte, Absolute 4.4 1.2 - 8.0 K/uL [facility] Lymphocyte, Absolute 2.1 0.5 - 5.0 K/uL [facility] Monocyte, Absolute 0.6 0.1 - 1.5 K/uL [facility] Granulocyte, Percentage 62.6 35.0 - 80.0 % [facility] Lymphocyte, Percentage 30.7 15.0 - 50.0 % [facility] Monocyte, Percentage 6.7 2.0 - 15.0 % [facility] Blood specimen (specimen) 10/28/2021 10:25 AM CDT 10/28/2021 10:28 AM CDT us Wendi Hawkins MD LAB BLOOD ORDERABLES F inal Result [facility] [address] [place] [address] * Hemoglobin A1c (10/28/2021 10:25 AM CDT) HBA1C 5.8 5.0 - 6.3 % [facility] Comment: Interpretive Comment: Normal: ? 4.5 - 5.6 Pre-Diabetes: 5.7 - 6.4 Diabetes is: ??6.5 Ranges based on ADA Guidelines Blood specimen (specimen) 10/28/2021 10:25 AM CDT 10/28/2021 10:28 AM CDT Wendi Hawkins MD LAB BLOOD ORDERABLES F inal Result Performing Organization Address [facility]/ZIP Co de Phone Number [address] [address] * (ABNORMAL) Lipid panel (10/28/2021 10:25 AM CDT) Triglyceride 143 0 - 150 mg/dL [facility] Cholesterol 240(H) 0 - 200 mg/dL [facility] HDL 48 >35 mg/dL [facility] LDL-Calculated 163 mg/dL [facility] CHOL/HDL Risk Ratio 5 Ratio [facility] LDL/HDL Risk Ratio 3 Ratio [facility] Blood specimen (specimen) 10/28/2021 10:25 AM CDT 10/28/2021 10:28 AM CDT Wendi Hawkins MD LAB BLOOD ORDERABLES F inal Result Performing Organization Address [facility]/ZIP Co de Phone Number [address] [address] * TSH (10/28/2021 10:25 AM CDT) TSH 1.71 0.27 - 4.20 uIU/mL [facility] Blood specimen (specimen) 10/28/2021 10:25 AM CDT 10/28/2021 10:28 AM CDT Wendi Hawkins MD LAB BLOOD ORDERABLES F inal Result Performing Organization Address [facility]/ZIP Co de Phone Number [address] [address] * (ABNORMAL) Comprehensive metabolic panel (10/28/2021 10:25 AM CDT) Glucose 108 74 - 200 mg/dL [facility] BUN 25(H) 18 - 23 mg/dL [facility] Creatinine 1.0 0.7 - 1.3 mg/dL [facility] eGFR 74 mL/min/1.7 3m2 [facility] BUN/Creat Ratio 24 Ratio [facility] Bilirubin, Total 0.4 0.0 - 1.2 mg/dL [facility] AST (SGOT) 17 0 - 40 U/L [facility] ALT (SGPT) 26 10 - 50 U/L [facility] Alkaline phosphatase 68 40 - 129 U/L [facility] Calcium 9.7 8.8 - 10.2 mg/dL [facility] Sodium 140 136 - 145 mEq/L [facility] Potassium 4.9 3.5 - 5.1 mEq/L [facility] Chloride 105 98 - 107 mEq/L [facility] CO2 26.3 22.0 - 29.0 mEq/L [facility] Anion Gap 9 3 - 12 mEq/L [facility] Total Protein 6.7 6.6 - 8.7 g/dL [facility] Albumin 4.6 3.5 - 5.2 g/dL [facility] Globulin 2.0 g/dL [facility] Albumin/Globulin 2.3 Ratio [facility] Blood specimen (specimen) 10/28/2021 10:25 AM CDT 10/28/2021 10:28 AM CDT Wendi Hawkins MD LAB BLOOD ORDERABLES F inal Result Performing Organization Address City/State/[facility] Co de Phone Number [facility] [address] [place] [address] documented in this encounter Visit Diagnoses Diagnosis Medicare annual wellness visit, subsequent- Primary Colon cancer screening Special screening for malignant neoplasms, colon Pure hypercholesterolemia Benign essential HTN Abnormal blood chemistry Other abnormal blood chemistry Thyroid disorder screen Screening for thyroid disorder Prostate cancer screening Special screening for malignant neoplasm of prostate Encounter for screening for HIV Encounter for hepatitis C screening test for low risk patient Obstructive sleep apnea syndrome in adult Traumatic incomplete tear of left rotator cuff, initial encounter documented in this encounter Discontinued Medications Medication Sig Discontinue Reason Start Date End Da te amLODIPine (NORVASC) 10 mg tablet Take 1 tablet (10 mg total) by mouth daily 06/27/2020 10/28/2021 ondansetron ODT (ZOFRAN-ODT) 4 mg disintegrating tablet Dissolve 1 tablet for mild to moderate nausea or vomiting or 2 tablets for severe nausea or vomiting oral twice a day as needed. 02/25/2021 10/28/2021 predniSONE (DELTASONE) 50 mg tablet TAKE 1 TABLET BY MOUTH ONCE DAILY FOR 5 DAYS 09/24/2021 10/28/2021 montelukast (SINGULAIR) 10 mg tabletIndications:Seasona l Allergic Rhinitis Take 1 tablet (10 mg total) by mouth nightly 06/27/2020 10/28/2021 albuterol HFA (ProAir HFA) 90 mcg/actuation inhalerIndications:Bronch ospasm Prevention Inhale 2 puffs every 4 (four) hours as needed for wheezing or shortness of breath 03/19/2021 10/28/2021 fluticasone propionate (FLONASE) 50 mcg/actuation nasal spray USE 1 SPRAY(S) IN EACH NOSTRIL TWICE DAILY 09/20/2021 10/28/2021 traZODone (DESYREL) 50 mg tabletIndications:insomni a associated with depression Take 1 tablet (50 mg total) by mouth nightly as needed for sleep 07/22/2020 10/28/2021 aspirin 325 mg tablet Take 325 mg by mouth daily 10/28/2021 metoprolol XL (TOPROL-XL) 100 mg 24 hr tablet Take 1 tablet by mouth once daily Reorder 09/29/2021 10/28/2021 documented as of this encounter Historical Medications * This list may reflect changes made after this encounter. aspirin 81 mg chewable tablet Take 1 tablet (81 mg total) by mouth daily timolol (TIMOPTIC) 0.5 % ophthalmic solution INSTILL 1 DROP INTO RIGHT EYE TWICE DAILY 09/24/2021 predniSONE (DELTASONE) 50 mg tablet TAKE 1 TABLET BY MOUTH ONCE DAILY FOR 5 DAYS 09/24/2021 10/28/2021 fluticasone propionate (FLONASE) 50 mcg/actuation nasal spray USE 1 SPRAY(S) IN EACH NOSTRIL TWICE DAILY 09/20/2021 10/28/2021 brimonidine (ALPHAGAN) 0.2 % ophthalmic solution INSTILL 1 DROP INTO RIGHT EYE TWICE DAILY 09/24/2021 05/03/2023 benzonatate (TESSALON) 200 mg capsule TAKE 1 CAPSULE BY MOUTH UP TO THREE TIMES DAILY NEEDED FOR COUGH 09/20/2021 05/03/2023 added in this encounter Orders Case Request Count Last Ordered Date First Orde red Date GI DIRECT ACCESS CASE REQUEST 1 10/28/2021 documented in this encounter Care Teams Tin Cutter Relationship Specialty Start Date End Date Wendi Hawkins MD [address] [place] [address] PCP - General Internal Medicine 09/05/21 04/27/23 documented as of this encounter
--- OUTSIDE RECORDS SUMMARY | 2024-06-25 13:57 | XMS_ITS | Encounter Summary ---
Author Organization [facility] Address [address] [place] [address] Phone Care Team Providers Care Ecology Teacher Name Role Phone Wendi Hawkins MD Primary Care Provider Reason for Referral * Diagnostic Imaging (Routine) - Closed Specialty Diagnoses / Procedures Referred By Contac t Referred To Contact Diagnoses Right foot pain Procedures FL Fluoro Guided Aspiration or Injection Small Joint Right Metatarsal Phalangeal [place] ([place]) [place] [id number] [place] [address] Phone: tel: fax: [facility] [address] [place] [address] Referral ID Status Reason Start Date Expiration Date Visits Re quested Visits Authorized [id number] Closed 03/19/2022 04/18/2023 1 1 * Diagnostic Imaging (Routine) - Closed Specialty Diagnoses / Procedures Referred By Contac t Referred To Contact Diagnoses Right foot pain Procedures XR Foot Right 3 [place] [id number] [place] [address] Phone: tel: fax: [facility] [address] [place] [address] Referral ID Status Reason Start Date Expiration Date Visits Re quested Visits Authorized [id number] Closed 03/18/2022 04/17/2023 1 1 Reason for Visit * Reason Comments Pain * Consultation (Routine) - Closed Specialty Diagnoses / Procedures Referred By Contmigue t Referred To Contact Orthopedic Surgery Diagnoses Right foot pain Kelin Collier NP Phone: tel: fax: [facility] (All Locations) Referral ID Status Reason Start Date Expiration Date V isits Requested Visits Authorized [id number] Closed Specialty Services Required 02/24/2022 03/26/2023 1 1 Encounter Details Date Type Department Care Team (Late st Contact Info) Description 03/19/2022 11:00 AM CDT Office Visit [facility] Orthopaedic Surgery [address] [facility] [address] [place] [address] [place] [id number] [place] [address] Right foot pain (Primary Dx) Social History Tobacco Use Types [...] on file 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 Gender Identity Not on file Sexual Orientation Not on file documented as of this encounter Last Filed Vital Signs Vital Sign Reading Time Taken Comments Blood Pressure - - Pulse - - Temperature - - Respiratory Rate - - Oxygen Saturation - - Inhaled Oxygen Concentration - - Weight 104.3 kg (230 lb) 03/19/2022 11:47 AM CDT Height 172.7 cm (5' 8 ) 03/19/2022 11:47 AM CDT Body Mass Index 34.97 03/19/2022 11:47 AM CDT documented in this encounter Progress Notes * Palomo Gupta, VOCATIONAL HORTICULTURE INSTRUCTOR - 03/19/2022 11:00 AM CDT NEW PATIENT VISIT CHIEF COMPLAINT Pain of the Right Foot HISTORY OF PRESENT ILLNESS The patient is a 61 year male presents today with chief complaint of right great toe pain. He has had pain for approximately 6-8 months. Most recently in January he was on vacation and using a wheeledsuit case when the wheel stopped and he kicked it. He was seen in an outside urgent care when he got home. No fracture was identified. He describes the pain as sharp, burning, aching and moderate to severe. Elevating makes it better. Standing walking too long make it worse. PAST MEDICAL HISTORY He Past Medical History: Diagnosis Date Arthritis Headache Old myocardial infarction History of non-ST elevation myocardial infarction (NSTEMI) - (Added by PATI Conv) PAST SURGICAL HISTORY He Past Surgical History: Procedure Laterality Date BACK SURGERY SC APPENDECTOMY Appendectomy - (Added by PATI Conv) INITIAL REVIEW OF MEDICATIONS He has a current medication list which includes the following prescription(s): amlodipine, aspirin,benzonatate, brimonidine, celecoxib, cyclobenzaprine, fluticasone propionate, methylprednisolone, metoprolol xl, rosuvastatin, timolol, tramadol, and triamcinolone. DRUG ALLERGIES He has No Known Allergies. SOCIAL HISTORY He Social History Tobacco Use Smoking status: Never Smokeless tobacco: Never Substance and Sexual Activity Drug use: Never Sexual activity: Yes Partners: Female control/protection: None Comment: with partner of 3 years Alcohol Use: Not At Risk Frequency of Alcohol Consumption: 4 or more times a week Average Number of Drinks: 1 or 2 Frequency of Binge Drinking: Never FAMILY HISTORY His Family History Problem Relation Age of Onset Heart attack Brother Heart disease Mother Arthritis Mother Hypertension Mother Arthritis Father REVIEW OF SYSTEMS Please see Orthopedic Patient Questionnaire reviewed by me today. PHYSICAL EXAMINATION On physical exam he is Height: 172.7 cm (5' 8 ) and Weight: 104.3 kg (230 lb). He is alert and oriented x3. Respirations are normal. Hearing is intact to the spoken word. Skin exam reveals no rashes,lesions or ulcers. Sensation is intact to light touch. DP and PT pulses are 2+. He has intact dorsiflexion, plantar flexion, inversion and eversion. Ankle strength is 5 out of 5. He has tenderness topalpation in the right first MTP joint. Mild swelling. No redness or bruising. He has pain at end range of motion of the joint. No crepitus. REVIEW OF X-RAYS/STUDIES I have ordered right foot x-ray and personally reviewed the images. My independent interpretation is severe right first MTP joint osteoarthritis with dorsal osteophyte. IMPRESSION/DIAGNOSIS Right first MTP joint osteoarthritis TREATMENT/PLAN We discussed treatment options in the office today including conservative and surgical management. We discussed shoe wear. He did say wide toe box shoe. We will show him a toe plate. He has Celebrex at home that he was using previously for his neck. He can try that. If that is not working he can try using topical Voltaren gel. He should ice after activity. We will also set him up for a fluoroscopy guided right first MTP joint cortisone injection. We discussed the injection may take 2 weeks workfully. He will call us 2 weeks after with an update. He is agreeable to plan. All his questions were answered today. I was in collaboration with Dr. Fontaine today. Palomo Gupta RN,BSN, MSN, AGRICULTURE LABORER, SENIOR NET ARCHITECT-C, in collaborative practice with Dr. Boubacar Buck and Dr. Linus Fontaine Nurse Practitioner, Foot and Ankle Service [facility]. This is JUAN Sanchez dictating using [employer] Direct Software Program. Decorative Engraver Apprentice variances may occur. documented in this encounter Plan of Treatment Scheduled Procedures Name Priority Associated Diagnoses Date/Ti me COLONOSCOPY Colon cancer screening COLONOSCOPY Colon cancer screening documented as of this encounter Results * FL Fluoro Guided Aspiration or Injection Small Joint Right Metatarsal Phalangeal Joint (MTP) (03/23/2022 11:22 AM CDT) Narrative [facility] - 03/23/2022 11:23 AM CDT The images from this study are not interpreted by Radiology. ??Please refer to the physician's procedure / OR operative note. us Palomo Gupta NP IMG FLUOROSCOPY PROCEDURES Final Result [facility] * XR Foot Right 3 or More Views (03/19/2022 11:21 AM CDT) Anatomical Region Laterality Modality Lower Extremities, Foot Right Computed Radiography 03/19/2022 11:5 3 AM CDT Impressions 03/19/2022 11:53 AM CDT Severe right great toe metatarsophalangeal osteoarthritis. Electronically signed by: Michel Mclain M.D. Narrative 03/19/2022 11:53 AM CDT XR FOOT RIGHT 3 OR MORE VIEWS HISTORY: ??Right foot pain. FINDINGS: ??3 weightbearing views of the right foot are obtained and interpreted without comparison. There is no fracture. ??There is severe great toe metatarsophalangeal osteoarthritis. ??The remaining joint spaces are preserved. ??Small plantar calcaneal spur and dorsal Achilles enthesophyte. ??Alignment and soft tissues are normal. Procedure Note Michel Mclain MD - 03/19/2022 XR FOOT RIGHT 3 OR MORE VIEWS HISTORY: Right foot pain. FINDINGS: 3 weightbearing views of the right foot are obtained and interpreted without comparison. There is no fracture. There is severe great toe metatarsophalangeal osteoarthritis. The remaining joint spaces are preserved. Small plantar calcaneal spur and dorsal Achilles enthesophyte. Alignment and soft tissues are normal. IMPRESSION: Severe right great toe metatarsophalangeal osteoarthritis. Electronically signed by: Michel Mclain M.D. us Palomo Gupta NP IMG XR PROCEDURES Final Re sult documented in this encounter Visit Diagnoses Diagnosis Right foot pain- Primary Pain in soft tissues of limb Right foot pain Pain in soft tissues of limb Right foot pain- Primary Pain in soft tissues of limb documented in this encounter Historical Medications * This list may reflect changes made after this encounter. methylPREDNISolo ne (MEDROL DOSEPACK) 4 mg Dosepack TAKE BY MOUTH DIRECTED ON INSIDE OF PACKAGE 02/09/2022 04/07/2022 added in this encounter Orders Outpatient Referral Count Last Ordered Date Fir st Ordered Date AMB REFERRAL TO ORTHOPEDIC FOOT 1 2 documented in this encounter Care Teams Ecology Teacher Relationship Specialty Start Date End Date Wendi Hawkins MD [address] [place] [address] PCP - General Internal Medicine 09/05/21 04/27/23 documented as of this encounter
--- OUTSIDE RECORDS SUMMARY | 2024-06-25 13:57 | XMS_ITS | Encounter Summary ---
Author Organization [facility] Address [address] [place] [address] Phone Care Team Providers Care Photography Colorist Name Role Phone Pal Russell MD Primary Care Provider Reason for Referral * Diagnostic Imaging (Routine) - Closed Specialty Diagnoses / Procedures Referred By Massimo steven Referred To Contact Diagnoses Shortness of breath after COVID-19 vaccination Procedures XR Chest Pa Lateral 2 Views Moriah Turner NP [address] [place] [address] Phone: tel: fax: [address] [phone] Referral ID Status Reason Start Date Expiration Date Visits Re quested Visits Authorized [id number] Closed 03/19/2021 04/18/2022 1 1 Reason for Visit * Reason Comments Follow-up hospital f/u Encounter Details Date Type Department Care Team (Late st Contact Info) Description 03/19/2021 9:30 AM CDT Office Visit [facility] [address] [place] [address] Moriah Turner NP [address] [place] [address] Hospital discharge follow-up (Primary Dx); Exposure to COVID-19 virus; Shortness of breath after COVID-19 vaccination; Hay fever; Fatty liver Social History Tobacco Use Types Packs/Day Years [...] on file 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 Gender Identity Not on file Sexual Orientation Not on file documented as of this encounter Last Filed Vital Signs Vital Sign Reading Time Taken Comments Blood Pressure 130/88 03/19/2021 9:33 AM CDT Pulse 93 03/19/2021 9:33 AM CDT Temperature - - Respiratory Rate - - Oxygen Saturation 96% 03/19/2021 9:33 AM CDT Inhaled Oxygen Concentration - - Weight 97.1 kg (214 lb) 03/19/2021 9:33 AM CDT Height 172.7 cm (5' 8 ) 03/19/2021 9:33 AM CDT Body Mass Index 32.54 03/19/2021 9:33 AM CDT documented in this encounter Patient Instructions * Patient Instructions* Moriah Turner NP - 03/19/2021 9:30 AM CDT SEE BELOW FOR MORE DETAILS ON YOUR SYMPTOM TREATMENT: General Discussion regarding Role of antibiotics: Antimicrobial therapy -- Many Upper Respiratory Infections are caused by viruses. Inappropriate use of antibiotics for viralrespiratory infections can cause adverse events and contribute to development of antibiotic resistance. 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 If antibiotics or steroids are ordered: ??? Be aware of the potential adverse effects of each. Gastrointestinal upset (diarrhea/nausea) happens frequently-yogurt or a probiotic are encouraged along with drinking plenty of fluids. ??? Please also continue the general measures below for symptom control. ??? Rest and plenty of oral fluids are encouraged. ??? Should symptoms not improve or should they get worse following the completion of antibiotic therapy the patient is encouraged to call this office. Symptom Management: To help keep the healing process on track please make sure to keep up with oral fluids 64 ounces ofwater and get plenty of rest while using the following guide to help you with your symptoms. # Pain, Fever and Inflammation: ??? Tylenol/acetaminophen 1000mg every 8 hours as needed, but more regularly with symptoms. Max dose of Tylenol 3,000 per day- no more than 1,000mg every 8 hours. ??? Please do not take tylenol/acetaminophen if you have liver issues of if you drink alcohol daily. Alcohol and tylenol/acetaminophen as they both metabolize through the liver. Only take the lowestdose needed for the shortest amount of time- do not use more than 2 weeks without calling our office. ??? Ibuprofen 200mg every 8 hours as needed, but more regularly with symptoms. Max dose of Ibuprofen 1,800- No more than 600mg every 8 hours. Please take with food on your stomach as it can irritate the stomach and Gastrointestinal or GI system. Do not take an NSAID if you are not eating regularly.Only take the lowest dose needed for the shortest amount of time- do not use more than 2 weeks without calling our office. # Runny Nose, Sinus Congestion, Back of the Throat Drainage, Itchy Throat: ??? Antihistamine daily (at night if it makes you tired) Examples are: Zyrtec/Cetrizine, Yvette/Fexofenadine or Claritin/Loratadine- only choose and use one and take as directed on the box. ??? Neti-pot OR Normal Saline Nose [place] in the morning and the evening at least. Use the normal saline/neti-pot prior to other medicated nose sprays. This will help to rinse the nose prior to fluticasone. This will also help keep your nose moist and help avoid nose scabbing/nose bleeds. ??? Flonase/fluticasone or Nasacort nose spray. Use 2 sprays each nostril the first dose and then change to 1 spray each nostril morning and evening. Only take the lowest dose needed for the shortestamount of time- do not use more than 3 weeks without calling our office. Use after normal saline nose spray/neti-pot. # Itchy Watery eyes: ??? Ketotifen (Zaditor or Alaway OTC Zyrtec) 1 drop every 8 to 12 hours OR Pataday Olopatadine OTC Patanol 0.1% 1 drop in each eye twice a day at an interval of 6 to 8 hours. # Cough Suppression and Mucus Thinning: ??? Mucinex DM morning and evening. This medication is safe for people with high blood pressure. ??? If you have High Blood Pressure, avoid decongestants such as pseudoephedrine (Sudafed) and phenylephrine-these will raise your blood pressure. ??? Tessalon Pearls if ordered and as needed for cough- This is a prescription medication your provider has to send in. # Sore or Itchy Throat: ??? Throat spray, cough drops, salt water gargle (1 teaspoon salt in 1cup/8oz. of warm water) morning and evening at least, and warm tea (water if you do not like tea) with honey and lemon. Can also try to melt a cough drop into the tea to help. # Bronchospasms/Reactive Airways: ??? Use albuterol as prescribed and as needed. Max dose is 2 puffs every 4 hours-DO NOT use more than this. Side effects of albuterol include nervousness or shakiness, headache, throat or nasal irritation, and muscle aches. Although uncomfortable, it is not dangerous and will pass within 30-60 minutes. More- serious -- though less common -- side effects include a rapid heart rate (tachycardia) or feelings of fluttering or a pounding heart (palpitations). Please decreased to one puff and or discontinue the medication and let us know if you develop palpitations. If illness goes beyond 10 days please let the office know for next steps. Call the office with questions. documented in this encounter Ordered Prescriptions Prescription Sig Dispense Quantity Refills Last Filled Start Date End Date triamcinolone (NASACORT) 55 mcg nasal inhalerIndications :Allergic Rhinitis Administer 2 sprays into each nostril daily 16.9 mL 1 03/19/2021 2 albuterol HFA (ProAir HFA) 90 mcg/actuation inhalerIndications :Bronchospasm Prevention Inhale 2 puffs every 4 (four) hours as needed for wheezing or shortness of breath 8.5 g 1 03/19/2021 2 documented in this encounter Progress Notes * Moriah Turner NP - 03/19/2021 9:30 AM CDT Last Visit Date: Jul 10 Transition of Care Visit SUBJECTIVE: Mr.Dennis Emiliano Ritter is 60 y.o. established patient with Pal Russell MD last seen here Jul 10. He has the PMHx of non smoker, with PMH of HTN, HLD, LUIS F and as below and is presenting to our clinic today for: Follow-up (hospital f/u) for PNA d/t COVID Patient Active Problem List Diagnosis ??? Transient global amnesia ??? Facial pain ??? Intermittent claudication (CMS/HCC) (HCC) ??? Daytime somnolence ??? Cough ??? Cervical radiculopathy ??? Hyperlipidemia ??? Obstructive sleep apnea syndrome in adult ??? Increased body mass index (BMI) ??? Obesity with body mass index 30 or greater ??? Anaclitic depression ??? Chronic coronary artery disease ??? Chronic low back pain ??? Exercise-induced angina (CMS/HCC) (HCC) ??? Left ventricular diastolic dysfunction ??? Cough ??? Benign essential HTN ??? Allergic rhinitis ??? Traumatic tear of left rotator cuff ??? Pneumonia due to COVID-19 virus ??? Hospital discharge follow-up Patient is seen in the office today for a transition of care visit, after a recent hospitalization.Initial phone contact was confirmed for the transition of care within two business days after discharge, and communication regarding aspects of care, education and support with activities of daily living is documented in the chart. I, Moriah Turner NP have personally reviewed pertinent Hospital/ER data including [employer] and Care Everywhere if available. This patient's discharge medication list has been reviewed and reconciled with his medication list in the office chart and has also been reviewed with patient and/or caregiver. I have noted any changes. TODAY: He is feeling sick again- URI symptoms again- still really tired he just wants to sleep. He is technically in quarantine until tomorrow- However he has been out and about to eat and other things. Sinus Problem This is a new problem. Episode onset: 3 days worsened. The problem has been gradually worsening since onset. There has been no fever. Associated symptoms include congestion, coughing, headaches, neckpain, shortness of breath (if lays down ), sinus pressure and a sore throat. Pertinent negatives include no chills, diaphoresis, ear pain, hoarse voice, sneezing or swollen glands. (He reports he hasbeen out and about- was told to quarantine until tomorrow Feels a little tightness in the chest- drainage in head/O2 sat 94-96%) Treatments tried: nothing was on steroids. The treatment provided mildrelief. [facility] Admission Date: 03/02/2021 Discharge Date: 03/06/2021 ?? Hospital Problems/Diagnoses: Principal Problem: Pneumonia due to COVID-19 virus Active Problems: Cough/ Cervical radiculopathy/ Hyperlipidemia/ Obstructive sleep apnea syndrome inadult/ Benign essential HTN/ Resolved Problems: No resolved hospital problems. Date of Initial Post-discharge Interactive Contact: Complexity of Medical Decision Makin03/05/2021 Major Procedures and Tests: Major Procedures and Tests Performed During Inpatient Stay: See below. Studies Pending at Discharge (Includes Lab and Radiology): None Hosp Course: COVID pos 02/18/2021- in hospital 03/05/2021 to 03/06/2021 Initially had nasal congestion, loss of smell, diffuse myalgia. After couple of days developed sob that prompted ED visit on 02/25/2021. CXR at that time showed mild patchy opacities. Labs were unremarkable and patient was sent home on Decadron and Zofran. After 3 days of therapy he did not feel any better which prompted this ED visit. In the ED vitally stable. Saturates in high 80s on room air, placed on 3 L oxygen and Sat improved to mid 90s. CXR showed diffuse b/l opacities, worsened compared to CXR from 02/25. CT with PE protocol showed no evidence of pulmonary embolism Received Decadron IV and inhaler treatment. Admitted forfurther management. 03/02/2021 CXR:Progressive interstitial and airspace opacities, particularly in the right lower lung. 03/02/2021 CTChest: No CT evidence for pulmonary embolus. 2. Multifocal, patchy ground-glass infiltrates involving the upper and lower lobes bilaterally characteristic of bilateral pneumonia and consistent with the patient's diagnosis of COVID-19 infection. 3. Coronary artery calcification. Recommend clinical correlation for coronary artery disease. EKG: SINUS RHYTHM VOLTAGE CRITERIA FOR LVH, CONSIDER NORMAL VARIANT ??[MEETS CRITERIA IN ONE OF: R(aVL), S(V1), R(V5), R(V5/V6)+S(V1)] POSSIBLE ANTERIOR MYOCARDIAL INFARCTION , OF INDETERMINATE AGE [30 ms Q WAVE IN V3/V4, OR R < 0.2 mV IN V4] 03/03/2021 ECHO: Mild concentric left ventricular hypertrophy. Normal global left ventricular systolic function. Diastolic dysfunction is present. Ejection fraction is visually estimated at 60 to 65 %. Normal structure of the mitral valve. Trivial regurgitation of the mitral valve. Normal structure of the aortic valve. Normal structure of the tricuspid valve. Trivial regurgitation in the tricuspidvalve. 60 year old with HTN, LUIS F, HLD presenting with dyspnea; COVID-19 dx and weaned off oxygen. 6 more days of steroids; medically stable for DC; lastly was instructed to return to the ED with any recurrent symptoms; pt agreed/understood, all q's answered. F/u outpt fatty liver as outpt. Past Medical History: Diagnosis Date ??? Arthritis ??? Gout ??? Headache ??? Old myocardial infarction History of non-ST elevation myocardial infarction (NSTEMI) - (Added by TW Conv) Family History Family History Problem Relation Age of Onset ??? Heart attack Brother Family history of heart attack - (Added by TW Conv) ??? Heart disease Brother ??? Heart disease Mother ??? Arthritis Mother ??? Hypertension Mother ??? Arthritis Father Social History Social History Narrative Alcohol use : (Added by TW Conv) Caffeine use : (Added by TW Conv) Lack of exercise : (Added by TW Conv) Insufficient vegetables : (Added by TW Conv) Dietary excess : (Added by TW Conv) Diet is high in fat content : (Added by TW Conv) Current Outpatient Medications: ??? traMADoL (ULTRAM) 50 mg tablet, TAKE 1 TABLET BY MOUTH EVERY 6 HOURS, Disp: 30 tablet, Rfl: 0 ??? albuterol HFA (ProAir HFA) 90 mcg/actuation inhaler, Inhale 2 puffs every 4 (four) hours as needed for wheezing or shortness of breath, Disp: 8.5 g, Rfl: 1 ??? amLODIPine (NORVASC) 10 mg tablet, Take 1 tablet (10 mg total) by mouth daily, Disp: 90 tablet,Rfl: 3 ??? aspirin 325 mg tablet, Take 325 mg by mouth daily, Disp: , Rfl: ??? celecoxib (CeleBREX) 200 mg capsule, Take 1 capsule (200 mg total) by mouth 2 (two) times a day, Disp: 60 capsule, Rfl: 11 ??? cyclobenzaprine (FLEXERIL) 10 mg tablet, TAKE 1 TABLET BY MOUTH THREE TIMES DAILY NEEDED FORMUSCLE SPASMS, Disp: 30 tablet, Rfl: 0 ??? metoprolol XL (TOPROL-XL) 100 mg 24 hr tablet, Take 1 tablet (100 mg total) by mouth daily, Disp: 30 tablet, Rfl: 11 ??? montelukast (SINGULAIR) 10 mg tablet, Take 1 tablet (10 mg total) by mouth nightly, Disp: 30 tablet, Rfl: 11 ??? ondansetron ODT (ZOFRAN-ODT) 4 mg disintegrating tablet, Dissolve 1 tablet for mild to moderatenausea or vomiting or 2 tablets for severe nausea or vomiting oral twice a day as needed., Disp: 15tablet, Rfl: 0 ??? pravastatin (PRAVACHOL) 10 mg tablet, Take 1 tablet by mouth once daily, Disp: 90 tablet, Rfl: 1 ??? traZODone (DESYREL) 50 mg tablet, Take 1 tablet (50 mg total) by mouth nightly as needed for sleep, Disp: 30 tablet, Rfl: 3 ??? triamcinolone (NASACORT) 55 mcg nasal inhaler, Administer 2 sprays into each nostril daily, Disp: 16.9 mL, Rfl: 1 Allergies: Patient has no known allergies. Review of Systems Constitutional: Negative for chills and diaphoresis. HENT: Positive for congestion, sinus pressure and sore throat. Negative for ear pain, hoarse voice and sneezing. Respiratory: Positive for cough and shortness of breath (if lays down ). Musculoskeletal: Positive for neck pain. Neurological: Positive for headaches. BP 130/88 (BP Location: Right arm, Patient Position: Sitting) Pulse 93 Ht 172.7 cm (5' 8 ) Wt97.1 kg (214 lb) SpO2 96% BMI 32.54 kg/m?? Physical Exam Constitutional: General: He is not in acute distress. Appearance: Normal appearance. He is not ill-appearing. HENT: Head: Normocephalic. Right Ear: Ear canal and external ear normal. Tympanic membrane is bulging. Tympanic membrane is not erythematous. Left Ear: Ear canal and external ear normal. Tympanic membrane is bulging. Tympanic membrane is noterythematous. Ears: Comments: Erythema and cobblestoning in throat present Cardiovascular: Rate and Rhythm: Normal rate and regular rhythm. Pulmonary: Effort: Pulmonary effort is normal. No respiratory distress. Breath sounds: No stridor. Rales (throughout) present. No wheezing or rhonchi. Chest: Chest wall: No tenderness. Abdominal: Palpations: Abdomen is soft. Musculoskeletal: Cervical back: Normal range of motion. Skin: General: Skin is warm and dry. Neurological: General: No focal deficit present. Mental Status: He is alert and oriented to person, place, and time. Mental status is at baseline. Psychiatric: Mood and Affect: Mood normal. Behavior: Behavior normal. Thought Content: Thought content normal. Judgment: Judgment normal. Metabolic Lab Results: Body mass index is 32.54 kg/m??. Glucose: Glucose Date Value Ref Range Status 03/06/2021 176 70 - 199 mg/dL Final Comment: Interpretive Data Fasting glucose >/= 126 mg/dl is diagnostic for diabetes. Fasting is defined as no caloric intake for at least 8 hours. Fasting glucose between 100 mg/dl to 125 mg/dl is diagnostic of prediabetes. In a patient with classic symptoms of hyperglycemia or hyperglycemic crisis, a random glucose >/= 200 mg/dl is diagnostic for diabetes. In the absence of unequivocal hyperglycemia, results should be confirmed by repeat testing. The classification and Diagnosis of Diabetes Diabetes Care 2017;40 (Suppl. 1):S11. Current interpretive data was last revised 2017. 10/20/2019 96 65 - 99 mg/dL Final Comment: Fasting reference interval Lab Results Component Value Date WBC 9.3 03/06/2021 HGB 13.1 03/06/2021 HCT 39.8 03/06/2021 MCV 90.7 03/06/2021 Lab Results Component Value Date GLUCOSE 176 03/06/2021 CALCIUM 9.0 03/06/2021 SODIUM 139 03/06/2021 POTASSIUM 4.3 03/06/2021 CO2 22 03/06/2021 CHLORIDE 106 03/06/2021 BUNSER 26 (H) 03/06/2021 CREATININE 0.78 (L) 03/06/2021 No components found for: HGA1C, LIPIDS Assessment and Plan: Diagnoses and all orders for this visit: Hospital discharge follow-up (Primary) Comments: D/C 03/06 w steroids/nose spray/IS and zofran Exposure to COVID-19 virus Comments: Still in quarantine/has been out and about as well-not vaccinated disc quarantine& why Test today-CXR today FU phone call w results for next steps Orders: - Request for Ambulatory Collection Site Testing - Adult; Future Shortness of breath after COVID-19 vaccination Comments: cont IS/move more/rest when needed/albuterol ordered Orders: - XR Chest Pa Lateral 2 Views; Future - albuterol HFA (ProAir HFA) 90 mcg/actuation inhaler; Inhale 2 puffs every 4 (four) hours as needed for wheezing or shortness of breath Hay fever Comments: cont montelukast Orders: - triamcinolone (NASACORT) 55 mcg nasal inhaler; Administer 2 sprays into each nostril daily Fatty liver Comments: deferred today/rtc post covid/PNA ressolve for next steps He understands red flag symptoms and when to seek emergency treatment. He will call me if any problems arise. Discussed with the patient and all questioned fully answered and they were receptive and agreeable to the plan of care. After Visit Summary (AVS) given. Return in about 2 weeks (around 04/02/2021) for Recheck/Follow-up on Today's Problem List. Moriah Turner NP No future appointments. Cosigned by Pal Russell MD at 03/19/2021 11:33 AM CDT documented in this encounter Miscellaneous Notes * Assessment & Plan Note - Moriah Turner NP - 03/19/2021 9:51 AM CDT Associated Problem(s): Pneumonia due to COVID-19 virus (Resolved 01/11/2022) - Keep all the following appts and followups, call with questions. - Coordination of Home care services and follow-up with specialist appointments confirmed. - Instructions have been provided to and reviewed with the patient/care partner prior to discharge. documented in this encounter Plan of Treatment Scheduled Procedures Name Priority Associated Diagnoses Date/Ti me COLONOSCOPY Colon cancer screening COLONOSCOPY Colon cancer screening documented as of this encounter Results * XR Chest Pa Lateral 2 Views (03/19/2021 11:35 AM CDT) Anatomical Region Laterality Modality Body, Chest N/A Computed Radiogr aphy 03/19/2021 12:2 0 PM CDT Narrative 03/19/2021 12:23 PM CDT EXAM DESCRIPTION: ?? XR CHEST PA LATERAL 2 VIEWS REASON FOR STUDY: ?? Diagnosed with Covid on 02/25/21. ??States still hears crackling and slight SOB. ??States having a minor heart attack 10 years ago. ?? Nonsmoker. ??No surgeries to heart/lungs. ?? TECHNIQUE: ?? Frontal and lateral radiographic views of the chest acquired. COMPARISON: ?? 03/02/2021 FINDINGS: LUNGS/PLEURA: ??Scattered bilateral interstitial reticulation with small patchy opacities seen throughout both lung, significantly decreased in confluence from prior study. ??No new focal consolidation, pleural effusion or pneumothorax. HEART/MEDIASTINUM: ??Heart size and cardiomediastinal contour are normal. HARDWARE/LINES/TUBES: ??None. BONES: ??No acute findings. OTHER: ??No other significant finding. IMPRESSION: ?? Diffuse bilateral interstitial and small patchy opacities are significantly decreased in confluence from prior study, compatible with post infectious scarring with or without a component of residual disease or inflammation. THIS IS AN ELECTRONICALLY VERIFIED FINAL REPORT 03/19/2021 12:23 PM - Electronically signed by Peter Hammond M.D. ML: ML D: ??03/19/2021 12:23 PM T: ??03/19/2021 12:23 PM Report ID: [id number] Reading Location: ??[id number] Procedure Note Peter Hammond MD - 03/19/2021 EXAM DESCRIPTION: XR CHEST PA LATERAL 2 VIEWS REASON FOR STUDY: Diagnosed with Covid on 02/25/21. States still hears crackling and slight SOB. States having a minor heart attack 10 yearsago. Nonsmoker. No surgeries to heart/lungs. TECHNIQUE: Frontal and lateral radiographic views of the chestacquired. COMPARISON: 03/02/2021 FINDINGS: LUNGS/PLEURA: Scattered bilateral interstitial reticulation with smallpatchy opacities seen throughout both lung, significantly decreased in confluence from prior study. No new focal consolidation, pleural effusion or pneumothorax. HEART/MEDIASTINUM: Heart size and cardiomediastinal contour are normal. HARDWARE/LINES/TUBES: None. BONES: No acute findings. OTHER: No other significant finding. IMPRESSION: Diffuse bilateral interstitial and small patchy opacitiesare significantly decreased in confluence from prior study, compatible withpost infectious scarring with or without a component of residual disease or inflammation. THIS IS AN ELECTRONICALLY VERIFIED FINAL REPORT 03/19/2021 12:23 PM - Electronically signed by Peter Hammond M.D. ML: ML Report ID: [id number] Reading Location: [place] [address] Moriah Turner [employer] IM[facility] XR PROCEDURES Kiera l Result documented in this encounter Visit Diagnoses Diagnosis Hospital discharge follow-up- Primary Other follow-up examination Exposure to COVID-19 virus Shortness of breath after COVID-19 vaccination Hay fever Allergic rhinitis, cause unspecified Fatty liver Other chronic nonalcoholic liver disease Shortness of breath after COVID-19 vaccination documented in this encounter Discontinued Medications Medication Sig Discontinue Reason Start Date End Da te triamcinolone (NASACORT) 55 mcg nasal inhalerIndications:All ergic Rhinitis Administer 2 sprays into each nostril daily Reorder 06/27/2020 03/19/2021 documented as of this encounter Additional Health Concerns Infection Onset [...] the result is from a facility outside [facility] . 02/25/2021 03/19/2021 04/02/2021 3:05 AM CDT documented as of this encounter Care Teams Photography Colorist Relationship Specialty Start Date End Date Pal Russell MD PCP - General 06/08/17 09/04/21 documented as of this encounter
--- OUTSIDE RECORDS SUMMARY | 2024-06-25 13:57 | XMS_ITS | Encounter Summary ---
Author Organization [facility] Healthcare Address [address] [place] [address] Care Team Providers Care Occupational Nurse Name Role Phone Wendi Hawkins MD Primary Care Provider Reason for Referral * Diagnostic Imaging (Routine) - Closed Specialty Diagnoses / Procedures Referred By Contac t Referred To Contact Diagnoses Right foot pain Procedures XR Foot Right 3 [place] [address] [place] [address] Phone: tel: fax: [place] [address] [place] [phone] Referral ID Status Reason Start Date Expiration Date Visits Re quested Visits Authorized [id number] Closed 03/18/2022 04/17/2023 1 1 Reason for Visit * Diagnostic Imaging (Routine) - Closed Specialty Diagnoses / Procedures Referred By Contac t Referred To Contact Diagnoses Right foot pain Procedures XR Foot Right 3 [place] [address] [place] [address] Phone: tel: fax: [place] [address] [place] [address] Referral ID Status Reason Start Date Expiration Date Visits Re quested Visits Authorized [id number] Closed 03/18/2022 04/17/2023 1 1 Encounter Details Date Type Department Care Team (Latest Contact Info) Description 03/19/2022 11:05 AM CDT - 03/19/2022 11:59 PM CDT Hospital Encounter [id number] [address] 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 Electronically signed by: Michel Mclain M.D. Palomo Gupta BIODIESEL ENGINEERING MANAGER IMG XR PROCEDURES Final Re sult documented in this encounter Visit Diagnoses Diagnosis Right foot pain Pain in soft tissues of limb documented in this encounter Care Teams Occupational Nurse Relationship Specialty Start Date End Date Wendi Hawkins MD [address] [place] [address] PCP - General Internal Medicine 09/05/21 04/27/23 documented as of this encounter
--- OUTSIDE RECORDS SUMMARY | 2024-06-25 13:57 | XMS_ITS | Encounter Summary ---
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 Gender Identity Not on file Sexual Orientation Not on file documented as of this encounter Plan of Treatment Scheduled Procedures Name Priority Associated Diagnoses Date/Ti me COLONOSCOPY Colon cancer screening COLONOSCOPY Colon cancer screening documented as of this encounter Procedures Procedure Name Priority Date/Time Associated Diagnosis Comments SCAN - RADIOLOGY/IMAGING 01/06/2022 2:35 PM CDT documented in this encounter Results * SCAN - RADIOLOGY/IMAGING (01/06/2022 2:35 PM CDT) Anatomical Region Laterality Modality Other us Provider Scanning Final Result documented in this encounter Visit Diagnoses Not on filedocumented in this encounter Care Teams Special Agent Fbi Relationship Specialty Start Date End Date Wendi Hawkisn MD [address] [place] [address] PCP - General Internal Medicine 09/05/21 04/27/23 documented as of this encounter
--- OUTSIDE RECORDS SUMMARY | 2024-06-25 13:57 | XMS_ITS | Encounter Summary ---
Author Organization [facility] Healthcare Address [address] [place] [address] Care Team Providers Care Refinery Operator Alkylation Name Role Phone Pal Russell MD Primary Care Provider [phone] Reason for Referral * Diagnostic Imaging (Routine) - Closed Specialty Diagnoses / Procedures Referred By Massimo steven Referred To Contact Diagnoses Shortness of breath after COVID-19 vaccination Procedures XR Chest Pa Lateral 2 Views Moriah Turner NP [address] [place] [address] Phone: tel: fax: [address] [phone] Referral ID Status Reason Start Date Expiration Date Visits Re quested Visits Authorized [id number] Closed 03/19/2021 04/18/2022 1 1 Reason for Visit * Diagnostic Imaging (Routine) - Closed Specialty Diagnoses / Procedures Referred By Massimo steven Referred To Contact Diagnoses Shortness of breath after COVID-19 vaccination Procedures XR Chest Pa Lateral 2 Views Moriah Turner NP [address] [place] [address] Phone: tel: fax: [address] [phone] Referral ID Status Reason Start Date Expiration Date Visits Re quested Visits Authorized [id number] Closed 03/19/2021 04/18/2022 1 1 Encounter Details Date Type Department Care Team (Latest Contact Info) Description 03/19/2021 11:28 AM CDT - 03/19/2021 11:59 PM CDT Hospital Encounter [facility] [address] [place] [address] Osmin Milan MD [address] [place], [place] [id number] Moriah Turner NP [address] [place] [address] Shortness of breath after COVID-19 vaccination Discharge Disposition: Discharge to home or self [...] on file 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 Gender Identity Not on file Sexual Orientation Not on file documented as of this encounter Medications at Time of Discharge albuterol HFA (ProAir HFA) 90 mcg/actuation inhalerIndications: Bronchospasm Prevention Inhale 2 puffs every 4 (four) hours as needed for wheezing or shortness of breath 8.5 g 1 03/19/2021 2 amLODIPine (NORVASC) 10 mg tablet Take 1 tablet (10 mg total) by mouth daily 90 tablet 3 06/27/2020 2 aspirin 325 mg tablet Take 325 mg by mouth daily 2 celecoxib (CeleBREX) 200 mg capsule Take 1 capsule (200 mg total) by mouth 2 (two) times a day 60 capsule 11 10/18/2019 1 cyclobenzaprine (FLEXERIL) 10 mg tablet TAKE 1 TABLET BY MOUTH THREE TIMES DAILY NEEDED FOR MUSCLE SPASMS 30 tablet 07/25/2020 3 metoprolol XL (TOPROL-XL) 100 mg 24 hr tabletIndications:h ypertension Take 1 tablet (100 mg total) by mouth daily 30 tablet 11 06/27/2020 2 montelukast (SINGULAIR) 10 mg tabletIndications:S easonal Allergic Rhinitis Take 1 tablet (10 mg total) by mouth nightly 30 tablet 11 06/27/2020 2 ondansetron ODT (ZOFRAN-ODT) 4 mg disintegrating tablet Dissolve 1 tablet for mild to moderate nausea or vomiting or 2 tablets for severe nausea or vomiting oral twice a day as needed. 15 tablet 02/25/2021 2 pravastatin (PRAVACHOL) 10 mg tablet Take 1 tablet by mouth once daily 90 tablet 1 11/14/2020 1 traMADoL (ULTRAM) 50 mg tablet TAKE 1 TABLET BY MOUTH EVERY 6 HOURS 30 tablet 08/22/2020 1 traZODone (DESYREL) 50 mg tabletIndications:i nsomnia associated with depression Take 1 tablet (50 mg total) by mouth nightly as needed for sleep 30 tablet 3 07/22/2020 2 triamcinolone (NASACORT) 55 mcg nasal inhalerIndications: Allergic Rhinitis Administer 2 sprays into each nostril [...] Name Priority Date/Time Associated Diagnosis Comments XR CHEST PA LATERAL 2 VIEWS Schedule Routine, Read Routine (OP Routine) 03/19/2021 11:35 AM CDT Shortness of breath after COVID-19 vaccination documented in this encounter Results * XR Chest Pa [...] Electronically signed by Peter Hammond M.D. ML: BRANDON D: ??03/19/2021 12:23 PM T: ??03/19/2021 12:23 PM Report ID: [id number] Reading Location: ??[id number] Procedure Note Peter Hammond MD - 03/19/2021 [...] Peter Hammond M.D. ML: ML Report ID: [id number] Reading Location: [place] [address] us Moriah Turner RESTORATIVE ART EMBALMER IMG XR PROCEDURES Kiera l Result documented in this encounter Visit Diagnoses Diagnosis Shortness of breath after COVID-19 vaccination documented in this encounter Additional Health Concerns [...] the result is from a facility outside [facility] . 02/25/2021 03/19/2021 04/02/2021 3:05 AM CDT documented as of this encounter Care Teams Refinery Operator Alkylation Relationship Specialty Start Date End Date Pal Russell MD PCP - General 06/08/17 09/04/21 documented as of this encounter
--- OUTSIDE RECORDS SUMMARY | 2024-06-25 13:57 | XMS_ITS | Encounter Summary ---
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 Foot was not broken was told he has arthritis in foot, was at Feb 02, (pt was out of town wheninjury took place. PT was told to contact his PCP for further treatment, PT is asking for steroids inj.. Pls advise. documented in this encounter Plan of Treatment Scheduled Procedures Name Priority Associated Diagnoses Date/Ti me COLONOSCOPY Colon cancer screening COLONOSCOPY Colon cancer screening documented as of this encounter Visit Diagnoses Not on filedocumented in this encounter Care Teams Charity Fundraiser Relationship Specialty Start Date End Date Wendi Hawkins MD [address] [place] [address] PCP - General Internal Medicine 09/05/21 04/27/23 documented as of this encounter
--- OUTSIDE RECORDS SUMMARY | 2024-06-25 13:57 | XMS_ITS | Encounter Summary ---
Author Organization [facility] Address [address] [facility] [address] [facility] [address] [place] [address] Care Team Providers Care Connie Cleaner Name Role Phone Pal Russell MD Primary Care Provider [phone] Encounter Details Date Type Department Care Team (Late st Contact Info) Description 03/19/2021 Orders Only [facility] Testing Site - [facility]. 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 Date of Symptom Onset 03/19/2021 ?? Testing site patient will be sent to: [facility] ?? Date testing requested: 03/19/2021 ?? Testing: COVID-19 RNA Flu/RSV Does the patient currently work in a healthcare facility with direct patient contact? No ?? Is the patient a resident of a congregate care or living setting? No ?? Is the patient ? No documented in this encounter Plan of Treatment Scheduled Procedures Name Priority Associated Diagnoses Date/Ti me COLONOSCOPY Colon cancer screening COLONOSCOPY Colon cancer screening documented as of this encounter Results * Influenza A/B and RSV PCR Nasopharyngeal (03/19/2021 10:19 AM CDT) Influenza A RNA Negative Negative [facility] Influenza B RNA Negative Negative [facility] RSV RNA Negative Negative [facility] Comment: Interpretive Data Testing performed by the [facility] Molecular Infectious Disease Laboratory. ??This test is performed using the [employer] Influenza A/B and RSV Assay. ??This is a real-time RT-PCR test for the qualitative detection of nucleic acid from Influenza A, Influenza B, and RSV. ??This assay has been cleared by the FDA for routine clinical use. ??The performance characteristics have been verified by the [facility]. ?? Results should be interpreted in combination with clinical context and a negative result does not rule out infection. Interpretive data last revised 2020. Nasopharyngeal 03/19/2021 10 :19 AM CDT 03/19/2021 3:11 PM CDT Moriah Turner NP LAB MICROBIOLOGY - GEN ERAL ORDERABLES Final Result [facility] Department [place] [address] * (ABNORMAL) COVID-19 Coronavirus RNA Nasopharyngeal (03/19/2021 10:19 AM CDT) COVID-19 RNA Positive( A) Negative [facility] Comment: Interpretive data: Synonyms for this test include: PCR and NAAT . ??This test is performed using the [employer] Xpert Xpress assay. This is a real-time [...] July 25, 2020. First COVID-19 test? No [facility] Employeed in healthcare? No [facility] status? No [facility] Group care resident? No [facility] Hospitalized? No [facility] Is patient in ICU? No [facility] Symptomatic as defined by CDC? Yes [facility] Nasopharyngeal 03/19/2021 10 :19 AM CDT 03/19/2021 3:11 PM CDT Narrative [facility] - 03/19/2021 4:32 PM CDT What is the reason for testing?->Symptoms of COVID-19 in high-risk group Date of Symptom Onset->03/19/21 Moriah Turner NP LAB MICROBIOLOGY - GEN ERAL ORDERABLES Final Result [facility] Department [place] [address] documented in this encounter Visit Diagnoses Diagnosis Exposure to SARS-associated coronavirus- Primary Exposure to SARS-associated coronavirus documented in this [...] the result is from a facility outside [facility] . 02/25/2021 03/19/2021 04/02/2021 3:05 AM CDT documented as of this encounter Care Teams Connie Cleaner Relationship Specialty Start Date End Date Pal Russell MD PCP - General 06/08/17 09/04/21 documented as of this encounter
--- OUTSIDE RECORDS SUMMARY | 2024-06-25 13:57 | XMS_ITS | Encounter Summary ---
Author Organization [facility] Address [address] [place] [address] Phone Care Team Providers Care Team Leader Name Role Phone Wendi Hawkins MD Primary Care Provider Reason for Referral * Consultation (Routine) - Closed Specialty Diagnoses / Procedures Referred By Massimo steven Referred To Contact Orthopedic Surgery Diagnoses Right foot pain Kelin Collier NP Phone: tel: fax: [facility] (All Locations) Referral ID Status Reason Start Date Expiration Date V isits Requested Visits Authorized [id number] Closed Specialty Services Required 02/24/2022 03/26/2023 1 1 Question Answer Please select the performing region: [facility] (All Locations) [[id number]] # of visits: 1 Reason for Visit * Reason Comments Foot Injury Right foot injury Encounter Details Date Type Department Care Team (Late st Contact Info) Description 02/24/2022 10:30 AM CDT Office Visit [facility] [address] [place] [address] Kelin Collier NP [address] [place] [address] Right foot pain (Primary Dx) Social History [...] when you are drinking? 1 or 2 2 Q3: How often do you have si x or more drinks on one occasion? 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 Gender Identity Not on file Sexual Orientation Not on file documented as of this encounter Last Filed Vital Signs Vital Sign Reading Time Taken Comments Blood Pressure 129/94 02/24/2022 10:30 AM CDT Pulse 68 02/24/2022 10:30 AM CDT Temperature 36.2 ??C (97.1 ??F) 02/24/2022 10:30 AM C DT Respiratory Rate - - Oxygen Saturation 99% 02/24/2022 10:30 AM CDT Inhaled Oxygen Concentration - - Weight 105.2 kg (232 lb) 02/24/2022 10:30 AM CDT Height 172.7 cm (5' 7.99 ) 02/24/2022 10:30 AM C DT Body Mass Index 35.28 02/24/2022 10:30 AM CDT documented in this encounter Ordered Prescriptions Prescription Sig Dispense Quantity Refills Last Filled Start Date End Date celecoxib (CeleBREX) 200 mg capsuleIndications :Osteoarthritis Take 1 capsule (200 mg total) by mouth 2 (two) times a day 60 capsule 02/24/2022 2 documented in this encounter Progress Notes * Kelin Collier NP - 02/24/2022 10:30 AM CDT Subjective/Objective Patient ID: Sean Ritter is a 61 y.o. male. Chief Complaint Foot Injury (Right foot injury) HPI Right foot injury: Right foot has been painful and throbbing x6 months. Several weeks ago kicked a suitcase. Went to UC. Xray negative for fracture. Told it was arthritis. Given steroids. No improvement.Pain 8/10 at worst. Occasionally swells. Was taking Celebrex for his neck but hasn't in a while. Review of Systems Musculoskeletal: Positive for arthralgias (right foot pain). All other systems reviewed and are negative. Physical Exam Vitals reviewed. Constitutional: Appearance: He [...] and oriented to person, place, and time. Psychiatric: Behavior: Behavior normal. Vitals BP 129/94 (BP Location: Right arm, Patient Position: Sitting) Pulse 68 Temp 36.2 ??C (97.1 ??F) (Temporal) Ht 172.7 cm (5' 7.99 ) Wt 105.2 kg (232 lb) SpO2 99% BMI 35.28 kg/m?? Current Outpatient Medications Medication Sig Dispense Refill [...] into each nostril daily 16 g 5 metoprolol XL (TOPROL-XL) 100 mg 24 hr [...] No current facility-administered medications for this visit. Assessment/Plan Diagnoses and all orders for this visit: Right foot pain (M79.671) (Primary) - Ambulatory referral to Orthopedic Foot; Future - celecoxib (CeleBREX) 200 mg capsule; Take 1 capsule (200 mg total) by mouth 2 (two) times a day All medications were discussed. Use and possible adverse effects were reviewed. We discussed red flag symptoms and when to seek emergency treatment. The patient verbalized understanding and agreement. The patient was encouraged to reach out to this provider with any further needs or questions. documented in this encounter Plan of Treatment Scheduled Procedures Name Priority Associated Diagnoses Date/Ti ct COLONOSCOPY Colon cancer screening COLONOSCOPY Colon cancer screening Scheduled Referrals Name Type Priority Associated Diagnoses Order Schedule Ambulatory referral to Orthopedic Foot Outpatient Referral Routine Right foot pain Expected: 03/10/2022 (Approximate), Expires: 02/24/2023 documented as of this encounter Visit Diagnoses Diagnosis Right foot pain- Primary Pain in soft tissues of limb documented in this encounter Discontinued Medications Medication Sig Discontinue Reason Start Date End Da te celecoxib (CeleBREX) 200 mg capsule Take 1 capsule by mouth twice daily Reorder 08/28/2021 02/24/2022 documented as of this encounter Care Teams Team Leader Relationship Specialty Start Date End Date Wendi Hawkins MD [address] [place] [address] PCP - General Internal Medicine 09/05/21 04/27/23 documented as of this encounter
--- OUTSIDE RECORDS SUMMARY | 2024-06-25 13:57 | XMS_ITS | Encounter Summary ---
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 Is the allergy medicine he needs flonase nose spray? If so, please send in script from 1 spray in each nostrilevery day with 1 year of refills thanks * Telephone Encounter - Wendi Hawkins MD - 01/11/2022 11:26 AM CDT Please give him the phone # for [facility] colonoscopy scheduling and [facility] physical therapy. Is the allergy medicine he needs flonase nose spray? If so, please send in script from 1 spray in each nostrilevery day with 1 year of refills thanks * Telephone Encounter - Rafaela Patel - 01/05/2022 12:57 PM CDT PT aware and will be waiting on your call next week. * Telephone Encounter - Moriah Turner NP - 01/05/2022 12:16 PM CDT JOSE CARLOSI * Telephone Encounter - Moriah Turner NP - 01/05/2022 12:14 PM CDT We have pt's note and sent to Dr. Alarcon, let him know we will pass on to Dr. Hawkins when she is backin a week to review * Telephone Encounter - Rafaela Patel - 01/05/2022 9:39 AM CDT RIV[facility] October 2021 Someone was to call PT about sleep study, colonoscopy, but no one contacted pt yet. PT need med R/F for allergies( pt does not recall name, stated Drew Thrasher prescribed it) PT can be reached at number on file. documented in this encounter Plan of Treatment Scheduled Procedures Name Priority Associated Diagnoses Date/Ti me COLONOSCOPY Colon cancer screening COLONOSCOPY Colon cancer screening documented as of this encounter Visit Diagnoses Not on filedocumented in this encounter Care Teams Golf Course Assistant Relationship Specialty Start Date End Date Wendi Hawkins MD [address] [place] [address] PCP - General Internal Medicine 09/05/21 04/27/23 documented as of this encounter
--- OUTSIDE RECORDS SUMMARY | 2024-06-25 13:58 | XMS_ITS | Encounter Summary ---
Author Organization [facility] Address [address] [place] [address] Phone Care Team Providers Care Hand Decorator Name Role Phone Pal Russell MD Primary Care Provider [phone] Encounter Details Date Type Department Care Team (Late st Contact Info) Description 08/06/2020 Orders Only [facility] Orthopaedic Surgery [address] [place] [id number] [place] [address] [place] [place] [address] Left shoulder pain, unspecified chronicity Social History Tobacco Use Types Packs/Day Years Used Date Smoking Tobacco: Never Smokeless Tobacco: Never Alcohol Use Standard Drinks/Week Comments Yes 0 (1 standard drink = 0.6 oz pur e alcohol) Sex and Gender Information Value Date Recorded Sex Assigned at Not on file 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 Gender Identity Not on file Sexual Orientation Not on file documented as of this encounter Plan of Treatment Scheduled Procedures Name Priority Associated Diagnoses Date/Ti me COLONOSCOPY Colon cancer screening COLONOSCOPY Colon cancer screening documented as of this encounter Procedures Procedure Name Priority Date/Time Associated Diagnosis Comments MRI SHOULDER LEFT WO CONTRAST Schedule Routine, Read Routine (OP Routine) 08/06/2020 4:31 PM QUALITY SYSTEMS MANAGER Left shoulder pain, unspecified chronicity documented in this encounter Results * MRI Shoulder Left WO Contrast (08/06/2020 4:31 PM QUALITY SYSTEMS MANAGER) Anatomical Region Laterality Modality Upper Extremities Left Magnetic Reson ance us Johnie Fregoso MD IMG MRI PROCEDURES Final Re sult documented in this encounter Visit Diagnoses Diagnosis Left shoulder pain, unspecified chronicity documented in this encounter Care Teams Hand Decorator Relationship Specialty Start Date End Date Pal Russell MD PCP - General 06/08/17 09/04/21 documented as of this encounter
--- OUTSIDE RECORDS SUMMARY | 2024-06-25 13:58 | XMS_ITS | Encounter Summary ---
Author Organization [facility] Address [address] [place] [address] Phone Care Team Providers Care Electromechanical Engineer Name Role Phone Pal Russell MD Primary Care Provider [phone] Encounter Details Date Type Department Care Team (Late st Contact Info) Description 08/14/2020 Telephone [facility] Orthopaedic Surgery [address] [facility] [address] [place] [address] [place] [address] [place] [address] Social History Tobacco Use Types Packs/Day Years Used Date Smoking Tobacco: Never Smokeless Tobacco: Never Alcohol Use Standard Drinks/Week Comments Yes 0 (1 standard drink = 0.6 oz pur e alcohol) Sex and Gender Information Value Date Recorded Sex Assigned at Not on file 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 Gender Identity Not on file Sexual Orientation Not on file documented as of this encounter Miscellaneous Notes * Telephone Encounter - Liane Matute CMA - 08/14/2020 4:08 PM DRY CURER Left VM to call and schedule surgery CURER documented in this encounter Plan of Treatment Scheduled Procedures Name Priority Associated Diagnoses Date/Ti me COLONOSCOPY Colon cancer screening COLONOSCOPY Colon cancer screening documented as of this encounter Visit Diagnoses Not on filedocumented in this encounter Care Teams Electromechanical Engineer Relationship Specialty Start Date End Date Pal Russell MD PCP - General 06/08/17 09/04/21 documented as of this encounter
--- OUTSIDE RECORDS SUMMARY | 2024-06-25 13:58 | XMS_ITS | Encounter Summary ---
Author Organization [facility] Healthcare Address [address] [place] [id number] Care Team Providers Care Braided Rug Maker Name Role Phone Pal Russell MD Primary Care Provider [phone] Reason for Visit * Reason Comments COVID-19 EVALUATION Encounter Details Date Type Department Care Team (Late st Contact Info) Description 02/25/2021 9:25 PM CDT - 02/25/2021 10:01 PM CDT Emergency [facility] Emergency Department [address] [place] [address] Fausto Ppoe MD [address] [place] [address] Pneumonia due to COVID-19 virus (Primary Dx) Discharge Disposition: Discharge to home or self care Social History Tobacco Use Types Packs/Day Years Used Date Smoking Tobacco: Never Smokeless Tobacco: Never Alcohol Use Standard Drinks/Week Comments Yes 0 (1 standard drink = 0.6 oz pur e alcohol) Sex and Gender Information Value Date Recorded Sex Assigned at Not on file Legal Sex Male 2:28 AM [employer] Gender Identity Not on file Sexual Orientation Not on file documented as of this encounter Last Filed Vital Signs Vital Sign Reading Time Taken Comments Blood Pressure 141/93 02/25/2021 9:45 PM CDT Pulse 102 02/25/2021 9:45 PM CDT Temperature 36 ??C (96.8 ??F) 02/25/2021 6:58 PM CDT Respiratory Rate 18 02/25/2021 9:45 PM CDT Oxygen Saturation 95% 02/25/2021 9:45 PM CDT Inhaled Oxygen Concentration - - Weight 93 kg (205 lb) 02/25/2021 6:58 PM CDT Height 172.7 cm (5' 8 ) 02/25/2021 6:58 PM CDT Body Mass Index 31.17 02/25/2021 6:58 PM CDT documented in this encounter Discharge Diagnoses Diagnosis COVID-19 - COVID-19 Pneumonia due to coronavirus disease 2019 (CODE) - PNEUMONIA DUE TO CORONAVIRUS DISEASE 2019 Essential (primary) hypertension - ESSENTIAL (PRIMARY) HYPERTENSION Unspecified essential hypertension Hyperlipidemia, unspecified - HYPERLIPIDEMIA, UNSPECIFIED Old myocardial infarction - OLD MYOCARDIAL INFARCTION documented in this encounter Discharge Instructions * Attachments The following attachments cannot be sent through Care Everywhere. * Coronavirus Disease 2019 (COVID-19)- Overview (Swazi) documented in this encounter Medications at Time of Discharge amLODIPine (NORVASC) 10 mg tablet Take 1 [...] FOR MUSCLE SPASMS 30 tablet 07/25/2020 3 dexAMETHasone (DECADRON) 6 mg tablet Take 1 tablet (6 mg total) by mouth 2 (two) times a day with meals 5 tablet 02/25/2021 1 metoprolol XL (TOPROL-XL) 100 mg 24 [...] sprays into each nostril daily 16.9 mL 3 06/27/2020 1 documented as of this encounter Ordered Prescriptions Prescription Sig Dispense Quantity Refills Last Filled Start Date End Date ondansetron ODT (ZOFRAN-ODT) 4 mg disintegrating tablet Dissolve 1 tablet for mild to moderate nausea or vomiting or 2 tablets for severe nausea or vomiting oral twice a day as needed. 15 tablet 02/25/2021 2 dexAMETHasone (DECADRON) 6 mg tablet Take 1 tablet (6 mg total) by mouth 2 (two) times a day with meals 5 tablet 02/25/2021 1 documented in this encounter Discharge Disposition Disposition Code Departure Means Destination Discharge to home or self care documented in this encounter ED Notes * Fausto Pope MD - 02/25/2021 9:34 PM CDT Chief Complaint Patient presents with ??? COVID-19 EVALUATION [facility] 02/25/2021 9:34 PM Sean Ritter is a 60 y.o. male non-smoker with a h/o HLD, LUIS F, CAD, HTN, and NSTEMI who presents to the ED for a COVID-19 evaluation. Pt reports decreased appetite, nausea, vomiting, and dizziness for ten days. He states that his symptoms began 02/15/2021 and he has since tested positive for COVID-19. He states that his PCP Dr. Russell advised him to visit the ED if his symptoms worsened, which they now have. He denies a previous admission due to COVID-19. He reports drinking a lot of water and Pedialyte in an attempt to stay hydrated. Pt states that he has taken Aleve without much relief. He notes that he has only eaten two bites of a [employer] sandwich today, and this is not normal for h im. No other complaints at this time. HPI Past Medical History: Diagnosis Date ??? Arthritis ??? Gout ??? Headache ??? Old myocardial infarction History of non-ST elevation myocardial infarction (NSTEMI) - (Added by TW Conv) Past Surgical History: Procedure Laterality Date ??? BACK SURGERY ??? GA APPENDECTOMY Appendectomy - (Added by TW Conv) Family History Problem Relation Age of [...] Alcohol use: Yes ??? Drug use: Never Review of Systems Review of Systems Constitutional: Positive for appetite change (decreased). Negative for chills and fever. HENT: Negative for ear pain and sore throat. Eyes: Negative for pain and visual disturbance. Respiratory: Negative for cough and shortness of breath. Cardiovascular: Negative for chest pain and palpitations. Gastrointestinal: Positive for nausea and vomiting. Negative for abdominal pain. Genitourinary: Negative for dysuria and hematuria. Musculoskeletal: Negative for arthralgias and back pain. Skin: Negative for color change and rash. Neurological: Positive for dizziness. Negative for seizures and syncope. All other systems reviewed and are negative. Physical Exam ED Triage Vitals [02/25/21 1858] Temp Pulse Resp BP SpO2 36 ??C (96.8 ??F) 103 22 140/85 (!) 88 % Temp src Heart Rate Source Patient Position BP Location FiO2 (%) Temporal -- -- -- -- Physical Exam Vitals and nursing note reviewed. Constitutional: Appearance: He is well-developed. HENT: Head: Normocephalic and atraumatic. Eyes: Conjunctiva/sclera: Conjunctivae normal. Cardiovascular: Rate and Rhythm: Normal rate and regular rhythm. Heart sounds: Normal heart sounds. No murmur heard. Pulmonary: Effort: Pulmonary effort is normal. No respiratory distress. Breath sounds: Normal breath sounds. Abdominal: Palpations: Abdomen is soft. Tenderness: There is no abdominal tenderness. Musculoskeletal: Cervical back: Neck supple. Skin: General: Skin is warm and dry. Neurological: Mental Status: He is alert and oriented to person, place, and time. Procedures Labs Reviewed CBC WITH AUTO DIFFERENTIAL - Abnormal Result Value WBC 7.8 Hgb 14.0 Hct 41.6 Plt 292 MPV 8.6 (*) RBC 4.64 MCV 89.7 MCH 30.2 MCHC 33.7 RDW CV 12.6 RDW SD 41.7 NRBC abs 0.00 COMPREHENSIVE METABOLIC PANEL - Abnormal Sodium 136 Potassium, pl 3.9 Chloride 100 CO2 21 (*) Anion gap 16 (*) BUN 15 Creatinine 0.78 (*) Glucose 120 Calcium 8.8 Bilirubin, total 0.4 Protein, pl 7.4 Albumin 3.7 Alk phos 103 ALT 45 AST 56 (*) PROTIME-INR - Abnormal PT 13.8 (*) INR 1.2 TROPONIN T HIGH-SENSITIVITY SERIES (BASELINE, 2HR, 4HR, 6HR) Trop T hs <6 PRO B-TYPE NATRIURETIC PEPTIDE NT-proBNP 81 APTT aPTT 31 DIFFERENTIAL AUTO Neutrophil abs 5.9 Imm gran abs 0.1 Lymphocyte abs 1.2 Monocyte abs 0.6 Eosinophil abs 0.0 Basophil abs 0.0 Neutrophil pct 76.4 Imm gran pct 0.6 Lymphocyte pct 15.4 Monocyte pct 7.3 Eosinophil pct 0.0 Basophil pct 0.3 EGFR eGFR 97 TROPONIN T HIGH-SENSITIVITY 2-HOUR TROPONIN T HIGH-SENSITIVITY 4-HR TROPONIN T HIGH-SENSITIVITY 6-HOUR XR Chest Pa Lateral 2 Views Final Result BP 140/85 Pulse 103 Temp 36 ??C (96.8 ??F) (Temporal) Resp 22 Ht 172.7 cm (5' 8 ) Wt 93 kg (205 lb) SpO2 93% BMI 31.17 kg/m?? [facility] ED Course as of Feb 25 2145 Time: 02/25 2141 Comment: Discussed labs and chest x-ray report with the patient. On room air he is satting 9192 fairly regularly with occasional higher values in a very occasional lower value. Since the hospitalist full due to the COVID surge, we will elect to send him home at this time and half discussed this in detail with him. He is agreeable to doing that and knows he should return to the emergency room should he have worsening symptoms. His primary complaint is actually nausea rather than shortness of breath. By: Fausto Pope MD Final diagnoses: None This note is prepared by Brenda Garza, acting as a scribe for Fausto Pope MD. I electronically signed this note at 9:34 PM on 02/25/2021. I, Fausto Pope MD, have personally performed the services described in the documentation, reviewed the documentation, as recorded by the scribe in my presence, and it accurately and completely records my words and actions. Fausto Pope MD 02/26/21 0050 * Philomena Winters RN - 02/25/2021 6:56 PM CDT Pt covid positive and says I'm past my tenth day, but I'm getting worse . Pt reports decreased appetite, N/V, and dizziness. Pt called PCP yesterday and was told just drink plenty of fluid and if it gets worse go to the ER . documented in this encounter Plan of Treatment Scheduled Procedures Name Priority Associated Diagnoses Date/Ti me COLONOSCOPY Colon cancer screening COLONOSCOPY Colon cancer screening documented as of this encounter Procedures Procedure Name Priority Date/Time Associated Diagnosis Comments TROPONIN T HIGH-SENSITIVITY 2-HOUR Timed 02/25/2021 9:24 PM CDT XR CHEST PA LATERAL 2 VIEWS ED 02/25/2021 7:24 PM CDT TROPONIN T HIGH-SENSITIVITY SERIES (BASELINE, 2HR, 4HR, 6HR) STAT 02/25/2021 7:14 PM CDT EGFR STAT 02/25/2021 7:14 PM CDT DIFFERENTIAL AUTO STAT 02/25/2021 7:1 4 PM CDT PRO B-TYPE NATRIURETIC PEPTIDE STAT 02/25/2021 7:14 PM CDT CBC WITH AUTO DIFFERENTIAL STAT 02/25/2021 7:14 PM CDT APTT STAT 02/25/2021 7:14 PM CDT PROTIME-INR STAT 02/25/2021 7:14 PM CDT COMPREHENSIVE METABOLIC PANEL STAT 02/25/2021 7:14 PM CDT documented in this encounter Results * Troponin T high-sensitivity 2-hour (02/25/2021 9:24 PM CDT) Trop T hs <6 <=22 ng/L [facility] ([place]) Comment: Interpretive Data For further hscTnT resources including the diagnostic algorithm and an aid in interpretation, copy and paste this link: https://nrl.testcatalog.org/show/hsTrop Current Interpretive Data last revised 2020. Trop T hs delta 0 ng/L [facility] ([place]) Trop T hs interp Insignificant [facility] ([place]) Blood 02/25/2021 9:24 PM CDT 02/25/2021 9:33 PM CDT us Patrick Merlos MD LAB BLOOD ORDERABLES Final Res ult [facility] ([place]) 1 [facility] [place] [address] * XR Chest Pa Lateral 2 Views (02/25/2021 7:24 PM CDT) Anatomical Region Laterality Modality Body, Chest N/A Computed Radiogr aphy 02/25/2021 7:43 PM CDT Narrative 02/25/2021 7:44 PM CDT EXAM DESCRIPTION: ?? XR CHEST PA LATERAL 2 VIEWS REASON FOR STUDY: ?? COVID-19 ??Pt covid positive and says It's past my tenth day, but I'm getting worse . ?? Pt reports decreased appetite, N/V, and dizziness. ?? Pt called PCP yesterday and was told just drink plenty of fluid and if it gets worse go to the ER . ?? Non-smoker ??Hx of [place] ?? TECHNIQUE: ?? Frontal and lateral radiographic views of the chest acquired. COMPARISON: ?? None FINDINGS: LUNGS/PLEURA: ??Elevation of the right hemidiaphragm. ??Mild scattered patchy airspace opacities throughout both lungs, compatible with multifocal pneumonia such as COVID-19. ??No sizable pleural effusion or pneumothorax. HEART/MEDIASTINUM: ??Heart size is normal. Normal mediastinal and hilar contours. HARDWARE/LINES/TUBES: ??None. BONES: ??No acute findings. OTHER: ??No other significant finding. IMPRESSION: ?? Mild scattered patchy airspace opacities throughout both lungs, compatible multifocal pneumonia such as COVID-19. ??Recommend follow-up radiograph in 6-8 weeks. THIS IS AN ELECTRONICALLY VERIFIED FINAL REPORT 02/25/2021 7:44 PM - Electronically signed by Claire Goyal M.D. BG: D: ??02/25/2021 7:44 PM T: ??02/25/2021 7:44 PM Report ID: [id number] Reading Location: ??[id number] Procedure Note Claire Goyal MD - 02/25/2021 EXAM DESCRIPTION: XR CHEST PA LATERAL 2 VIEWS REASON FOR STUDY: COVID-19 Pt covid positive and says It's past mytenth day, but I'm getting worse . Pt reports decreased appetite, N/V, and dizziness. Pt called PCP yesterday and was told just drink plenty offluid and if it gets worse go to the ER . Non-smoker Hx of [place] TECHNIQUE: Frontal and lateral radiographic views of the chestacquired. COMPARISON: None FINDINGS: LUNGS/PLEURA: Elevation of the right hemidiaphragm. Mild scatteredpatchy airspace opacities throughout both lungs, compatible with multifocalpneumonia such as COVID-19. No sizable pleural effusion or pneumothorax. HEART/MEDIASTINUM: Heart size is normal. Normal mediastinal and hilar contours. HARDWARE/LINES/TUBES: None. BONES: No acute findings. OTHER: No other significant finding. IMPRESSION: Mild scattered patchy airspace opacities throughout bothlungs, compatible multifocal pneumonia such as COVID-19. Recommend follow-up radiograph in 6-8 weeks. THIS IS AN ELECTRONICALLY VERIFIED FINAL REPORT 02/25/2021 7:44 PM - Electronically signed by Claire Goyal M.D. BG: Report ID: [id number] Reading Location: [place] [address] us Fausto Pope MD IMG XR PROCEDURES Final Result * eGFR (02/25/2021 7:14 PM CDT) eGFR 97 mL/min/1.7 3 m2 [facility] ([place]) Comment: Interpretive Data Reference Interval Normal ?>/= 90 mL/min/1.73m2 Mildly decreased* ? 60 - 89 mL/min/1.73m2 Mildly to moderately decreased ?45 - 59 mL/min/1.73m2 Moderately to severely decreased ??30 - 44 mL/min/1.73m2 Severely decreased ?15 - 29 mL/min/1.73m2 Kidney Failure ?< 15 ??mL/min/1.73m2 *Relative to young adult level Estimated glomerular filtration rate is determined by the CKD-EPI equation recommended by the National Kidney Foundation (KDIGO 2012 Clinical Practice Guideline for the Evaluation and Management of Chronic Kidney Disease. Kidney Intnl Suppl Jun 2012;3:1). The CKD-EPI equation should not be used for patients with unstable renal function and has not been validated in children and those over 70. Current interpretive data was last reviewed 2020 Blood 02/25/2021 7:14 PM CDT 02/25/2021 7:19 PM CDT us Fausto Pope MD LAB BLOOD ORDERABLES nal Result [facility] Department [place] [address] * Differential, auto (02/25/2021 7:14 PM CDT) Neutrophil abs 5.9 1.7 - 6.5 K/cumm [facility] ([place]) Imm gran abs 0.1 0.0 - 0.1 K/cumm [facility] ([place]) Lymphocyte abs 1.2 0.8 - 3.3 K/cumm [facility] ([place]) Monocyte abs 0.6 0.2 - 0.8 K/cumm [facility] ([place]) Eosinophil abs 0.0 0.0 - 0.5 K/cumm [facility] ([place]) Basophil abs 0.0 0.0 - 0.1 K/cumm [facility] ([place]) Neutrophil pct 76.4 % [facility] ([place]) Comment: Interpretive Data Percent cell count reference ranges are not reported, since discordance with absolute values may lead to misinterpretation of CBC data. Current Interpretive Data was last revised on 2017. Imm gran pct 0.6 % [facility] ([place]) Comment: Interpretive Data Percent cell count reference ranges are not reported, since discordance with absolute values may lead to misinterpretation of CBC data. Current Interpretive Data was last revised on 2017. Lymphocyte pct 15.4 % [facility] ([place]) Comment: Interpretive Data Percent cell count reference ranges are not reported, since discordance with absolute values may lead to misinterpretation of CBC data. Current Interpretive Data was last revised on 2017. Monocyte pct 7.3 % [facility] ([place]) Comment: Interpretive Data Percent cell count reference ranges are not reported, since discordance with absolute values may lead to misinterpretation of CBC data. Current Interpretive Data was last revised on 2017. Eosinophil pct 0.0 % [facility] ([place]) Comment: Interpretive Data Percent cell count reference ranges are not reported, since discordance with absolute values may lead to misinterpretation of CBC data. Current Interpretive Data was last revised on 2017. Basophil pct 0.3 % [facility] ([place]) Comment: Interpretive Data Percent cell count reference ranges are not reported, since discordance with absolute values may lead to misinterpretation of CBC data. Current Interpretive Data was last revised on 2017. Blood 02/25/2021 7:14 PM CDT 02/25/2021 7:19 PM CDT Fausto Pope MD LAB BLOOD ORDERABLES nal Result [facility] ([place]) 1 [facility] [place] [address] * aPTT (02/25/2021 7:14 PM CDT) aPTT 31 27 - 37 sec [facility] ([place]) Comment: Interpretive data Heparin therapeutic range: 60-94 seconds Range based on correlation with therapeutic heparin activity range of 0.3-0.7 units/ml. Current interpretive data was last revised on 2019. Blood 02/25/2021 7:14 PM CDT 02/25/2021 7:19 PM CDT Fausto Pope MD LAB BLOOD ORDERABLES nal Result [facility] ([place]) 1 [facility] [place] [address] * (ABNORMAL) Protime-INR (02/25/2021 7:14 PM CDT) PT 13.8(H) 9.5 - 13.6 sec [facility] ([place]) INR 1.2 0.9 - 1.2 [facility] ([place]) Comment: Interpretive data Oral anticoagulant therapeutic ranges: Venous thromboembolism prophylaxis or treatment: 2.0-3.0 CARDIOLOGY Standard range: 2.0-3.0 High-intensity range: 2.5-3.5 Refer to indication-specific guidelines for appropriate target ranges for prosthetic heart valve replacement. Current interpretive data was last revised on 2019. Blood 02/25/2021 7:14 PM CDT 02/25/2021 7:19 PM CDT us Fausto Pope MD LAB BLOOD ORDERABLES Fi nal Result [facility] ([place]) 1 [facility] [place] [address] * Pro B-type natriuretic peptide (02/25/2021 7:14 PM CDT) NT-proBNP 81 <=300 pg/mL [facility] ([place]) Comment: Interpretive Comments: A. Dyspnea in Acute Care Setting All Ages: ?< 300 pg/ml, acute heart failure unlikely. < 50 yrs: ?300 - 450 pg/ml, further investigation warranted. ? > 450 pg/ml, acute heart failure likely. 50 - 74 yrs: ? 300 - 900 pg/ml, further investigation warranted. ? > 900 pg/ml, acute heart failure likely . > or = 75 yrs: ? 450 - 1800 pg/ml, further investigation warranted. ? > 1800 pg/ml, acute heart failure likely. B. Non-acute Setting < 75 yrs ? < 125 pg/ml, rules out heart failure. ? > or = 125 pg/ml, further investigation warranted. > or = 75 yrs ?< 450 pg/ml, rules out heart failure. ? > or = 450 pg/ml, further investigation warranted. - Knowledge of each individual patient's NT-proBNP range may be more useful than using similar cut-points for every patient. Please note that marked elevations in NT-proBNP levels may be observed in state other than Left Ventricular Congestive Failure, including: acute coronary syndromes, right heart strain/failure (including pulmonary embolism and cor pulmonale), critical illness, renal failure, as well as advanced age. - References: 1. Liz SMITH et.al. Eur Heart J. 2006:27:330-337. 2. Giselle NEVAREZ, Jesus NGUYEN. J. AM Sabrina Cardiol: Cardiovasc Imag. 2009;2: 216- 225. Interpretive Data Last Revised Date: 2018. Blood 02/25/2021 7:14 PM CDT 02/25/2021 7:19 PM CDT Fausto Pope MD LAB BLOOD ORDERABLES Fi nal Result [facility] ([place]) 1 [facility] [place] [address] * Troponin T high-sensitivity series (baseline, 2hr, 4hr, 6hr) (02/25/2021 7:14 PM CDT) Trop T hs <6 <=22 ng/L [facility] ([place]) Comment: Interpretive Data For further hscTnT resources including the diagnostic algorithm and an aid in interpretation, copy and paste this link: https://nrl.testcatalog.org/show/hsTrop Current Interpretive Data last revised 2020. Blood 02/25/2021 7:14 PM CDT 02/25/2021 7:19 PM CDT us Fausto Pope MD LAB BLOOD ORDERABLES Fi nal Result [facility] ([place]) 1 [facility] of [facility] [place], [place] [id number] * (ABNORMAL) Comprehensive metabolic panel (02/25/2021 7:14 PM CDT) Sodium 136 135 - 145 mmol/L [facility] ([place]) Potassium, pl 3.9 3.3 - 4.9 mmol/L [facility] ([place]) Chloride 100 97 - 110 mmol/L [facility] ([place]) CO2 21(L) 22 - 32 mmol/L [facility] ([place]) Anion gap 16(H) 2 - 15 mmol/L [facility] ([place]) BUN 15 8 - 25 mg/dL [facility] ([place]) Creatinine 0.78(L) 0.80 - 1.30 mg/dL [facility] ([place]) Glucose 120 70 - 199 mg/dL [facility] ([place]) Comment: Interpretive Data Fasting glucose >/= 126 mg/dl is diagnostic for diabetes. ?? Fasting is defined as no caloric intake [...] Current interpretive data was last revised 2017. Calcium 8.8 8.5 - 10.3 mg/dL [facility] ([place]) Bilirubin, total 0.4 0.1 - 1.2 mg/dL [facility] ([place]) Protein, pl 7.4 6.5 - 8.5 g/dL [facility] ([place]) Albumin 3.7 3.5 - 5.0 g/dL [facility] ([place]) Alk phos 103 40 - 130 Units/L [facility] ([place]) ALT 45 7 - 55 Units/L [facility] ([place]) AST 56(H) 10 - 50 Units/L [facility] ([place]) Comment:Slightly Hemolyzed S pecimen Blood 02/25/2021 7:14 PM CDT 02/25/2021 7:19 PM CDT Fausto Pope MD LAB BLOOD ORDERABLES Fi nal Result Performing Organization Address City/[facility]/ZIP Co de Phone Number [facility] ([place]) [address] [facility] [email or web address] [address] * (ABNORMAL) CBC with auto differential (02/25/2021 7:14 PM CDT) WBC 7.8 3.8 - 9.9 K/cumm [facility] ([place]) Hgb 14.0 13.0 - 17.5 g/dL [facility] ([place]) Hct 41.6 38.9 - 50.3 % [facility] ([place]) Plt 292 150 - 400 K/cumm [facility] ([place]) MPV 8.6(L) 9.1 - 12.3 fL [facility] ([place]) RBC 4.64 4.30 - 5.80 M/cumm [facility] ([place]) MCV 89.7 81.3 - 96.4 fL [facility] ([place]) MCH 30.2 27.1 - 33.3 pg [facility] ([place]) MCHC 33.7 32.3 - 35.7 g/dL [facility] ([place]) RDW CV 12.6 11.1 - 14.9 % [facility] ([place]) RDW SD 41.7 35.7 - 48.1 fL [facility] ([place]) NRBC abs 0.00 0.00 - 0.01 K/cumm [facility] ([place]) Blood 02/25/2021 7:14 PM CDT 02/25/2021 7:19 PM CDT Fausto Pope MD LAB BLOOD ORDERABLES Fi nal Result Performing Organization Address City/[facility]/ZIP Co de Phone Number [facility] ([place]) 1 [facility] [place] [address] documented in this encounter Visit Diagnoses Diagnosis Pneumonia due to COVID-19 virus- Primary documented in this encounter Administered Medications Inactive Administered Medications - up to 3 most recent administrations Medication Order MAR Action Action Date Dose Rate Site dexAMETHasone (DECADRON) tablet 6 mg 6 mg, oral, Once, On Wed02/25/21 at 2108, For 1 dose Given 02/25/2021 9:49 PM CDT 6 mg ondansetron ODT (ZOFRAN-ODT) disintegrating tablet 4 mg 4 mg, oral, Once, On Wed02/25/21 at 2141, For 1 dose Given 02/25/2021 9:49 PM CDT 4 mg documented in this encounter Active and Recently Administered Medications Times are shown in CDT. Scheduled Medication Order 02/23/2021 02/24/2021 02/25/2021 dexAMETHasone (DECADRON) tablet 6 mg (COMPLETED) 6 mg, oral, Once, On Wed02/25/21 at 2108, For 1 dose 2148 (Given - Provid er: Garry Hubbard RN) ondansetron ODT (ZOFRAN-ODT) disintegrating tablet 4 mg (COMPLETED) 4 mg, oral, Once, On Wed02/25/21 at 2141, For 1 dose 2148 (Given - Provid er: Garry Hubbard RN) documented in this encounter Additional Health Concerns [...] the result is from a facility outside [facility] . 02/25/2021 03/19/2021 04/02/2021 3:05 AM CDT documented as of this encounter Care Teams Braided Rug Maker Relationship Specialty Start Date End Date Pal Russell MD PCP - General 06/08/17 09/04/21 documented as of this encounter
--- OUTSIDE RECORDS SUMMARY | 2024-06-25 13:58 | XMS_ITS | Encounter Summary ---
Author Organization [facility] Address [address] [facility] [address] [place] [id number] Care Team Providers Care Planning Aide Name Role Phone Pal Russell MD Primary Care Provider [phone] Reason for Visit * Reason Comments COVID-19 EVALUATION No SX, positive expo sure. 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 Gender Identity Not on file Sexual Orientation Not on file documented as of this encounter Last Filed Vital Signs Vital Sign Reading Time Taken Comments Blood Pressure 136/86 01/09/2021 4:00 PM CDT Pulse 83 01/09/2021 4:00 PM CDT Temperature 36.9 ??C (98.5 ??F) 01/09/2021 4:00 PM CD T Respiratory Rate 19 01/09/2021 4:00 PM CDT Oxygen Saturation 95% 01/09/2021 4:00 PM CDT Inhaled Oxygen Concentration - - Weight 99.8 kg (220 lb) 01/09/2021 4:00 PM CDT Height 172.7 cm (5' 8 ) 01/09/2021 4:00 PM CDT Body Mass Index 33.45 01/09/2021 4:00 PM CDT documented in this encounter Patient Instructions * Patient Instructions* Shala Penny, TRIM MOUNTER - 01/09/2021 3:55 PM CDT The rapid COVID antigen test performed in clinic today was negative. Testing is not 100% accurate. A person is considered fully vaccinated individuals if it has been at least two weeks since you received two doses of either Moderna or Pfizer vaccine, or a single dose of the Nando & Nando vaccine.The CDC is not requiring fully vaccinated individuals to quarantine at this time if the individ ual is not experiencing symptoms of COVID-19. If you are not fully vaccinated, the CDC recommends quarantine to home for 10 days beyond the date of last exposure. If you develop symptoms, you should self isolate and quarantine for 10 days beyond the start of symptoms. The following can be helpful in controlling symptoms. You may use acetaminophen and/or ibuprofen to control pain and fever. If you have chronic liver disease, have ever had a stomach ulcer or gastrointestinal bleeding talk with your healthcare provider before using these medicines. Aspirin should never be given to anyone under 18 years of age who is ill with a viral infection or fever. It may cause severe liver or brain damage. Your appetite may be poor, so a light diet is ok. Stay well hydrated by drinking 6 to 8 glasses of fluids per day (water, soft drinks, juices, tea, or soup). Extra fluids will help loosen secretions in the nose and lungs. Sqig-bqv-uqcoxwn cold medicines will not shorten the length of time you???re sick, but they may be helpful for relieving the following symptoms: headache, cough, sore throat, and nasal and sinus congestion. If you take prescription medicines, ask your healthcare provider or pharmacist which xysr-qhr-mtdosra medicines are safe to use. (Note: DO NOT use decongestants if you have high blood pressure.) Steps to help prevent the spread of COVID-19 if you are sick If you are sick with COVID-19 or think you might have COVID-19, follow the steps below to care for yourself and to help protect other people in your home and community. Stay home except to get medical care ??? Most people with COVID-19 have mild illness and are able to recover at home without medical care. Do not leave your home, except to get medical care. Do not visit public areas. ??? Take care of yourself. Get rest and stay hydrated. Take lcvx-whv-azapvyi medicines to help you feel better. ??? Stay in touch with your doctor. Call before you get medical care. Be sure to get care if you have trouble breathing, or have any other emergency warning signs, or if you think it is an emergency. ??? Avoid using public transportation, ride-sharing, or taxis. Monitor your symptoms ??? Symptoms of COVID-19 include fever, cough, shortness of breath or difficulty breathing, fatigue, muscle or body aches, headache, new loss of taste or smell, sore throat, congestion, runny nose, nausea, vomiting, or diarrhea. When to Seek Medical Attention If you develop emergency warning signs for COVID-19 get medical attention immediately. Emergency warning signs include*: ??? Trouble breathing ??? Persistent pain or pressure in the chest ??? New confusion or inability to arouse ??? Bluish lips or face *This list is not all inclusive. Please consult your medical provider for any other symptoms that are severe or concerning. Call 911 if you have a medical emergency: If you have a medical emergency and need to call 911, notify the embroidery operator that you have or think you might have, COVID-19. If possible, put on a facemask before medical help arrives. Separate yourself from other people in your home, this is known as home isolation ??? As much as possible, you should stay away from other people and pets in your home. You should stay in a specific ???sick room?? if possible. Use a separate bathroom, if available. If you need dwain around other people or animals in or outside of the home, wear a mask For more information on sharing close living quarters with someone who is sick visit https://www.cdc .gov/coronavirus/2019-ncov/sddei-hftr-djthin/vajqfq-cy-cnwow-quarters.html For more information on COVID-19 and pets visit https://www.cdc.gov/coronavirus/2019-ncov/faq.html Call ahead before visiting your doctor ??? Many medical visits for routine care are being postponed or done by phone or telemedicine. ??? If you have a medical appointment that cannot be postponed, call your doctor???s office, and tell them you have or may have COVID-19. This will help the office protect themselves and other patients. If you are sick wear a face mask over your nose and mouth in the following situations ??? You should wear a face mask over your nose and mouth if you must be around other people or animals, including pets (even at home). ??? You don't need to wear the face mask if you are alone. If you can't put on a face mask (becauseof trouble breathing, for example), cover your coughs and sneezes in some other way (tissue or inner elbow). Try to stay at least 6 feet away from other people. This will help protect the people around you. ??? Face masks should not be placed on children under 2 years old, anyone who has trouble breathing, or anyone who is not able to remove the covering without help. Cover your coughs and sneezes ??? Cover your mouth and nose with a tissue or the inside of your elbow when you cough or sneeze. ??? Throw used tissues in a lined trash can. ??? Immediately wash your hands with soap and water for at least 20 seconds. If soap and water are not available, clean your hands with an alcohol-based hand head strength and conditioning coach that contains at least 60% alcohol. Clean your hands often ??? Wash your hands often with soap and water for at least 20 seconds. This is especially importantafter blowing your nose, coughing, or sneezing; going to the bathroom; and before eating or preparing food. ??? Use hand head strength and conditioning coach if soap and water are not available. Use an alcohol-based hand head strength and conditioning coach with at least 60% alcohol, covering all surfaces of your hands and rubbing them together until they feel dry. ??? Soap and water are the best option, especially if hands are visibly dirty. ??? Avoid touching your eyes, nose, and mouth especially with unwashed hands. Avoid sharing personal household items ??? Do not share dishes, drinking glasses, cups, eating utensils, towels, or bedding with other people in your home. ??? After using these items, wash them thoroughly with soap and water or put them in the concrete tile machine operator. Clean all ???high-touch?? surfaces everyday. High-touch surfaces include phones, remote controls, counters, tabletops, doorknobs, bathroom fixtures, toilets, keyboards, tablets, and bedside tables. ??? Clean and disinfect high-touch surfaces in your ???sick room?? and bathroom everyday while wearing disposable gloves. Let someone else clean and disinfect surfaces in common areas, but not your bedroom and bathroom. ??? If a caregiver or other person needs to clean and disinfect a sick person???s bedroom or bathroom, they should do so on an as-needed basis. The caregiver/other person should wear a mask and disposable gloves prior to cleaning.They should wait as long as possible after the sick person has used the bathroom before coming in to clean and use the bathroom. ??? Clean and disinfect areas that may have blood, stool, or body fluids on them. ??? Clean the area or item with soap and water or another detergent if it is dirty. Then, use a household disinfectant. o Be sure to follow the instructions on the label to ensure safe and effective use of the product. Many products recommend keeping the surface wet for several minutes to ensure germs are killed. Manyalso recommend precautions such as wearing gloves and making sure you have good ventilation during use of the product. o Most EPA-registered household disinfectants should be effective. When you can be around others (end home isolation) depends on different factors for different situations. If you think or know you have COVID-19, and you had symptoms you can be with others after ??? 24 hours with no fever (without the use of fever reducing medications) AND ??? Respiratory symptoms have improved (cough, shortness of breath) AND ??? 10 days since symptoms first appeared. ??? Loss of taste and smell may persist for weeks or months after recovery and need not delay the end of isolation If you tested positive for COVID-19 but had no symptoms you can be with others after ??? 10 days have passed since the test. ??? If you develop symptoms after testing positive, follow the guidance above for I think or I know I had COVID, and I had symptoms . If you have a weakened immune system due to a health condition or medication you can be around others ??? People with conditions that weaken their immune system might need to stay home longer than 10 days. Talk to your healthcare provider for more information. If you have been around a person with COVID-19 ??? New options to reduce quarantine - Reducing the length of quarantine may make it easier for people to quarantine by reducing the time they cannot work. New CDC recommendations suggest you can return to work ??? On day 10 without testing ??? On day 7 after receiving a negative test result (test must occur on day 5 or later) After stopping quarantine, you should ??? Watch for symptoms until 14 days after exposure. ??? If you have symptoms, immediately self-isolate and contact your local public health authority or healthcare provider. ??? Wear a mask, stay at least 6 feet from others, wash their hands, avoid crowds, and take other steps to prevent the spread of COVID-19. CDC continues to endorse quarantine for 14 days based on the time it takes to develop illness/symptoms and recognizes that any quarantine shorter than 14 days balances reduced burden against a small possibility of spreading the virus. CDC will continue to evaluate new information and update recommendations as needed. ??? If you live with someone positive for COVID-19, and you are unable to avoid close contact, you should quarantine for the 7 to 10 days AFTER the person who has COVID-19 meets the criteria to end home isolation. However, anyone who has had close contact with someone with COVID-19 and who: ??? developed COVID-19 illness within the previous 3 months AND ??? has recovered AND ??? remains without COVID-19 symptoms (for example, cough, shortness of breath) does not need to stay home. In all cases, follow the guidance of your healthcare provider and local health department regardingquarantine guidelines. The decision to stop home isolation should be made in consultation with yourhealthcare provider and state and local health departments. Local decisions depend on local circumstances. The above information is from the CDC website on December 08, 2020. Page was last reviewed: November 15, 2020. Additional information and resources about COVID-19 symptoms, testing, self- isolation, how to prevent spread, and more are available at: https://www.cdc.gov/coronavirus documented in this encounter Progress Notes * Shala Penny NP - 01/09/2021 3:55 PM CDT Images from the original note were not included. Patient ID: Sean Ritter is a 60 y.o. male followed by Pal Russell MD Chief Complaint Patient presents with ??? COVID-19 EVALUATION No SX, positive exposure. Presents to [facility] care for COVID test following exposure to COVID-19. Patient denies symptoms today. He reports that he has not been vaccinated against COVID-19. Patient with sick or suspected COVID-19 contacts: Yes Patient has following risks for COVID-19: Hypertension Review of Systems Constitutional: Negative. HENT: Negative. Respiratory: Negative. Cardiovascular: Negative. Gastrointestinal: Negative. Vitals: 01/09/21 1600 BP: 136/86 BP Location: Left arm Patient Position: Standing Pulse: 83 Resp: 19 Temp: 36.9 ??C (98.5 ??F) TempSrc: Oral SpO2: 95% Weight: 99.8 kg (220 lb) Height: 172.7 cm (5' 8 ) Recent Results (from the past 24 hour(s)) COVID-19 POC Collection Time: 01/09/21 4:21 PM Result Value Ref Range COVID-19 Ag POC Presumptive Negative Presumptive Negative, Invalid Physical Exam Vitals reviewed. Constitutional: Appearance: He is well-developed. HENT: Right Ear: Tympanic membrane and external ear normal. Tympanic membrane is not injected, erythematous or bulging. Left Ear: Tympanic membrane and external ear normal. Tympanic membrane is not injected, erythematous or bulging. Nose: Right Sinus: No maxillary sinus tenderness or frontal sinus tenderness. Left Sinus: No maxillary sinus tenderness or frontal sinus tenderness. Mouth/Throat: Lips: Struble. Mouth: Mucous membranes are moist. Pharynx: No posterior oropharyngeal erythema. Tonsils: No tonsillar exudate. Eyes: Conjunctiva/sclera: Conjunctivae normal. Cardiovascular: Rate and Rhythm: Normal rate and regular rhythm. Pulmonary: Effort: Pulmonary effort is normal. Breath sounds: Normal breath sounds. No wheezing or rhonchi. Musculoskeletal: General: Normal range of motion. Skin: General: Skin is warm and dry. Neurological: Mental Status: He is alert and oriented to person, place, and time. Assessment/Plan Rapid COVID negative, patient advised to continue to self isolate for 10 days beyond the date of symptoms. Lungs CTA, O2 Saturation @95%/RA. Will discuss f/u precautions including signs/symptoms warranting ER evaluation. ??? Discussed home self-care, follow up needs, and signs and symptoms that warrant immediate medical attention/ER evaluation including worsening fever, increased shortness of breath, severe N/V/D, orany other worrisome symptoms ??? Reviewed isolation/quarantine protocols ??? Discussed symptomatic relief of symptoms ??? Advised to rest and increase oral fluid intake ??? Advised to stay out of work and work release given explaining when patient can return to work Diagnoses and all orders for this visit: Exposure to COVID-19 virus (Primary) - COVID-19 POC Orders Placed This Encounter Procedures ??? COVID-19 POC Order Specific Question: Is the Patient experiencing symptoms consistent with COVID? Answer: No Order Specific Question: Is the patient hospitalized? Answer: No Order Specific Question: Is the patient admitted to an ICU? Answer: No Order Specific Question: Is this the first COVID-19 test for this patient? Answer: No Order Specific Question: Does the patient currently work in a healthcare facility with direct patient contact? Answer: No Order Specific Question: Is the patient a resident of a congregate care or living setting? Answer: No Order Specific Question: Is the patient ? Answer: No Patient Education The rapid COVID antigen test performed in clinic today was negative. Testing is not 100% accurate. A person is considered fully vaccinated individuals if it has been at least two weeks since you received two doses of either Moderna or Pfizer vaccine, or a single dose of the Nando & Nando vaccine.The CDC is not requiring fully vaccinated individuals to quarantine at this time if the individ ua is not experiencing symptoms of COVID-19. If you are not fully vaccinated, the CDC recommends quarantine to home for 10 days beyond the date of last exposure. If you develop symptoms, you should self isolate and quarantine for 10 days beyond the start of symptoms. The following can be helpful in controlling symptoms. You may use acetaminophen and/or ibuprofen to control pain and fever. If you have chronic liver disease, have ever had a stomach ulcer or gastrointestinal bleeding talk with your healthcare provider before using these medicines. Aspirin should never be given to anyone under 18 years of age who is ill with a viral infection or fever. It may cause severe liver or brain damage. Your appetite may be poor, so a light diet is ok. Stay well hydrated by drinking 6 to 8 glasses of fluids per day (water, soft drinks, juices, tea, or soup). Extra fluids will help loosen secretions in the nose and lungs. Jykr-qaw-utzavoh cold medicines will not shorten the length of time you???re sick, but they may be helpful for relieving the following symptoms: headache, cough, sore throat, and nasal and sinus congestion. If you take prescription medicines, ask your healthcare provider or pharmacist which ixwp-voo-asrwecb medicines are safe to use. (Note: DO NOT use decongestants if you have high blood pressure.) Steps to help prevent the spread of COVID-19 if you are sick If you are sick with COVID-19 or think you might have COVID-19, follow the steps below to care for yourself and to help protect other people in your home and community. Stay home except to get medical care ??? Most people with COVID-19 have mild illness and are able to recover at home without medical care. Do not leave your home, except to get medical care. Do not visit public areas. ??? Take care of yourself. Get rest and stay hydrated. Take gofr-jgw-keikdow medicines to help you feel better. ??? Stay in touch with your doctor. Call before you get medical care. Be sure to get care if you have trouble breathing, or have any other emergency warning signs, or if you think it is an emergency. ??? Avoid using public transportation, ride-sharing, or taxis. Monitor your symptoms ??? Symptoms of COVID-19 include fever, cough, shortness of breath or difficulty breathing, fatigue, muscle or body aches, headache, new loss of taste or smell, sore throat, congestion, runny nose, nausea, vomiting, or diarrhea. When to Seek Medical Attention If you develop emergency warning signs for COVID-19 get medical attention immediately. Emergency warning signs include*: ??? Trouble breathing ??? Persistent pain or pressure in the chest ??? New confusion or inability to arouse ??? Bluish lips or face *This list is not all inclusive. Please consult your medical provider for any other symptoms that are severe or concerning. Call 911 if you have a medical emergency: If you have a medical emergency and need to call 911, notify the embroidery operator that you have or think you might have, COVID-19. If possible, put on a facemask before medical help arrives. Separate yourself from other people in your home, this is known as home isolation ??? As much as possible, you should stay away from other people and pets in your home. You should stay in a specific ???sick room?? if possible. Use a separate bathroom, if available. If you need dwain around other people or animals in or outside of the home, wear a mask For more information on sharing close living quarters with someone who is sick visit https://www.cdc .gov/coronavirus/2019-ncov/bvkgi-bshl-deobno/nsybeh-xq-nauud-quarters.html For more information on COVID-19 and pets visit https://www.cdc.gov/coronavirus/2019-ncov/faq.html Call ahead before visiting your doctor ??? Many medical visits for routine care are being postponed or done by phone or telemedicine. ??? If you have a medical appointment that cannot be postponed, call your doctor???s office, and tell them you have or may have COVID-19. This will help the office protect themselves and other patients. If you are sick wear a face mask over your nose and mouth in the following situations ??? You should wear a face mask over your nose and mouth if you must be around other people or animals, including pets (even at home). ??? You don't need to wear the face mask if you are alone. If you can't put on a face mask (becauseof trouble breathing, for example), cover your coughs and sneezes in some other way (tissue or inner elbow). Try to stay at least 6 feet away from other people. This will help protect the people around you. ??? Face masks should not be placed on children under 2 years old, anyone who has trouble breathing, or anyone who is not able to remove the covering without help. Cover your coughs and sneezes ??? Cover your mouth and nose with a tissue or the inside of your elbow when you cough or sneeze. ??? Throw used tissues in a lined trash can. ??? Immediately wash your hands with soap and water for at least 20 seconds. If soap and water are not available, clean your hands with an alcohol-based hand head strength and conditioning coach that contains at least 60% alcohol. Clean your hands often ??? Wash your hands often with soap and water for at least 20 seconds. This is especially importantafter blowing your nose, coughing, or sneezing; going to the bathroom; and before eating or preparing food. ??? Use hand head strength and conditioning coach if soap and water are not available. Use an alcohol-based hand head strength and conditioning coach with at least 60% alcohol, covering all surfaces of your hands and rubbing them together until they feel dry. ??? Soap and water are the best option, especially if hands are visibly dirty. ??? Avoid touching your eyes, nose, and mouth especially with unwashed hands. Avoid sharing personal household items ??? Do not share dishes, drinking glasses, cups, eating utensils, towels, or bedding with other people in your home. ??? After using these items, wash them thoroughly with soap and water or put them in the concrete tile machine operator. Clean all ???high-touch?? surfaces everyday. High-touch surfaces include phones, remote controls, counters, tabletops, doorknobs, bathroom fixtures, toilets, keyboards, tablets, and bedside tables. ??? Clean and disinfect high-touch surfaces in your ???sick room?? and bathroom everyday while wearing disposable gloves. Let someone else clean and disinfect surfaces in common areas, but not your bedroom and bathroom. ??? If a caregiver or other person needs to clean and disinfect a sick person???s bedroom or bathroom, they should do so on an as-needed basis. The caregiver/other person should wear a mask and disposable gloves prior to cleaning.They should wait as long as possible after the sick person has used the bathroom before coming in to clean and use the bathroom. ??? Clean and disinfect areas that may have blood, stool, or body fluids on them. ??? Clean the area or item with soap and water or another detergent if it is dirty. Then, use a household disinfectant. o Be sure to follow the instructions on the label to ensure safe and effective use of the product. Many products recommend keeping the surface wet for several minutes to ensure germs are killed. Manyalso recommend precautions such as wearing gloves and making sure you have good ventilation during use of the product. o Most EPA-registered household disinfectants should be effective. When you can be around others (end home isolation) depends on different factors for different situations. If you think or know you have COVID-19, and you had symptoms you can be with others after ??? 24 hours with no fever (without the use of fever reducing medications) AND ??? Respiratory symptoms have improved (cough, shortness of breath) AND ??? 10 days since symptoms first appeared. ??? Loss of taste and smell may persist for weeks or months after recovery and need not delay the end of isolation If you tested positive for COVID-19 but had no symptoms you can be with others after ??? 10 days have passed since the test. ??? If you develop symptoms after testing positive, follow the guidance above for I think or I know I had COVID, and I had symptoms . If you have a weakened immune system due to a health condition or medication you can be around others ??? People with conditions that weaken their immune system might need to stay home longer than 10 days. Talk to your healthcare provider for more information. If you have been around a person with COVID-19 ??? New options to reduce quarantine - Reducing the length of quarantine may make it easier for people to quarantine by reducing the time they cannot work. New CDC recommendations suggest you can return to work ??? On day 10 without testing ??? On day 7 after receiving a negative test result (test must occur on day 5 or later) After stopping quarantine, you should ??? Watch for symptoms until 14 days after exposure. ??? If you have symptoms, immediately self-isolate and contact your local public health authority or healthcare provider. ??? Wear a mask, stay at least 6 feet from others, wash their hands, avoid crowds, and take other steps to prevent the spread of COVID-19. CDC continues to endorse quarantine for 14 days based on the time it takes to develop illness/symptoms and recognizes that any quarantine shorter than 14 days balances reduced burden against a small possibility of spreading the virus. CDC will continue to evaluate new information and update recommendations as needed. ??? If you live with someone positive for COVID-19, and you are unable to avoid close contact, you should quarantine for the 7 to 10 days AFTER the person who has COVID-19 meets the criteria to end home isolation. However, anyone who has had close contact with someone with COVID-19 and who: ??? developed COVID-19 illness within the previous 3 months AND ??? has recovered AND ??? remains without COVID-19 symptoms (for example, cough, shortness of breath) does not need to stay home. In all cases, follow the guidance of your healthcare provider and local health department regardingquarantine guidelines. The decision to stop home isolation should be made in consultation with yourhealthcare provider and state and local health departments. Local decisions depend on local circumstances. The above information is from the CDC website on December 08, 2020. Page was last reviewed: November 15, 2020. Additional information and resources about COVID-19 symptoms, testing, self- isolation, how to prevent spread, and more are available at: https://www.cdc.gov/coronavirus documented in this encounter Plan of Treatment Scheduled Procedures Name Priority Associated Diagnoses Date/Ti me COLONOSCOPY Colon cancer screening COLONOSCOPY Colon cancer screening documented as of this encounter Procedures Procedure Name Priority Date/Time Associated Diagnosis Comments COVID-19 POC Routine 01/09/2021 4:21 PM CDT Exposure to COVID-19 virus documented in this encounter Results * COVID-19 POC (01/09/2021 4:21 PM CDT) COVID-19 Ag POC (BD Veritor) Presumptive Negative Presumptive Negative, Invalid [facility] Nasal 01/09/2021 4:21 PM CDT us Shala Penny TRIM MOUNTER POINT OF CARE TEST ORDER KANDI Final Result [facility] [address] [place] [address] [place] [address] documented in this encounter Visit Diagnoses Diagnosis Exposure to COVID-19 virus- Primary documented in this encounter Care Teams Planning Aide Relationship Specialty Start Date End Date Pal Russell MD PCP - General 06/08/17 09/04/21 documented as of this encounter
--- OUTSIDE RECORDS SUMMARY | 2024-06-25 13:58 | XMS_ITS | Encounter Summary ---
Author Organization [facility] Healthcare Address [address] [place] [id number] Care Team Providers Care Buyer Renter Name Role Phone Pal Russell MD Primary Care Provider [phone] Reason for Referral * Diagnostic Imaging (Routine) - Closed Specialty Diagnoses / Procedures Referred By Massimo steven Referred To Contact Diagnoses Left shoulder pain, unspecified chronicity Procedures XR [place]er Left 2+ [place] [id number] [place] [address] Phone: tel: fax: [facility] Referral ID Status Reason Start Date Expiration Date Visits Re quested Visits Authorized [id number] Closed 07/25/2020 08/24/2021 1 1 S DISASSEMBLER Reason for Visit * Diagnostic Imaging (Routine) - Closed Specialty Diagnoses / Procedures Referred By Massimo steven Referred To Contact Diagnoses Left shoulder pain, unspecified chronicity Procedures XR [place]er [place] 2+ [place] [id number] [place] [address] Phone: tel: fax: [facility] Referral ID Status Reason Start Date Expiration Date Visits Re quested Visits Authorized [id number] Closed 07/25/2020 08/24/2021 1 1 Encounter Details Date Type Department Care Team (Latest Contact Info) Description 07/29/2020 10:10 AM AUTOS DISASSEMBLER - 07/29/2020 11:59 PM AUTOS DISASSEMBLER Hospital Encounter [facility] [address] [place] [address] [place] [id number] [place] [address] Left shoulder pain, unspecified chronicity Discharge Disposition: Discharge to home or self care Social History Tobacco Use Types Packs/Day Years Used Date Smoking Tobacco: Never Smokeless Tobacco: Never Alcohol Use Standard Drinks/Week Comments Yes 0 (1 standard drink = 0.6 oz pur e alcohol) Sex and Gender Information Value Date Recorded Sex Assigned at Not on file Legal Sex Male 2:28 AM AUTOS DISASSEMBLER Gender Identity Not on file Sexual Orientation [...] metoprolol XL (TOPROL-XL) 100 mg 24 hr tabletIndication s:hypertension Take 1 tablet (100 mg total) by mouth daily 30 tablet 11 06/27/2020 2 montelukast (SINGULAIR) 10 mg tabletIndication s:Seasonal Allergic Rhinitis Take 1 tablet (10 mg total) by mouth nightly 30 tablet 11 06/27/2020 2 pravastatin (PRAVACHOL) 10 mg tablet Take 1 tablet by mouth once daily 90 tablet 04/15/2020 1 traMADoL (ULTRAM) 50 mg tablet Take 1 tablet (50 mg total) by mouth every 6 (six) hours 30 tablet 1 07/29/2020 1 traZODone (DESYREL) 50 mg tabletIndication s:insomnia associated with depression Take 1 tablet (50 mg total) by mouth nightly as needed for sleep 30 tablet 3 07/22/2020 2 triamcinolone (NASACORT) 55 mcg nasal inhalerIndicatio ns:Allergic Rhinitis Administer 2 sprays into each nostril daily 16.9 mL 3 06/27/2020 1 documented as of this encounter Discharge Disposition Disposition Code Departure Means Destination Discharge to home or self care documented in this encounter Plan of Treatment Scheduled Procedures Name Priority Associated Diagnoses Date/Ti me COLONOSCOPY Colon cancer screening COLONOSCOPY Colon cancer screening documented as of this encounter Procedures Procedure Name Priority Date/Time Associated Diagnosis Comments XR SHOULDER LEFT 2 OR MORE VIEWS Schedule Routine, Read Routine (OP Routine) 07/29/2020 10:25 AM AUTOS DISASSEMBLER Left shoulder pain, unspecified chronicity documented in this encounter Results * XR Shoulder Left 2+ View (07/29/2020 10:25 AM AUTOS DISASSEMBLER) Anatomical Region Laterality Modality Upper Extremities, Shoulder Left Comp uted Radiography 07/29/2020 10:2 8 AM AUTOS DISASSEMBLER Impressions 07/29/2020 10:28 AM AUTOS DISASSEMBLER Moderate left acromioclavicular osteoarthritis. Electronically signed by: Chucky Mccall M.D. Narrative 07/29/2020 10:28 AM AUTOS DISASSEMBLER EXAMINATION: Left shoulder minimum 2 views HISTORY: Left shoulder pain FINDINGS: 4 views of the left shoulder were performed without comparison. Alignment of the shoulder is normal. There is no acute fracture of the shoulder. Glenohumeral joint space is normal. There is moderate acromioclavicular osteoarthritis. Procedure Note Chucky Mccall MD PhD - 07/29/2020 EXAMINATION: Left shoulder minimum 2 views HISTORY: Left shoulder pain FINDINGS: 4 views of the left shoulder were performed without comparison. Alignment of the shoulder is normal. There is no acute fracture of the shoulder. Glenohumeral joint space is normal. There is moderate acromioclavicular osteoarthritis. IMPRESSION: Moderate left acromioclavicular osteoarthritis. Electronically signed by: Chucky Mccall M.D. us Johnie Fregoso MD IMG XR PROCEDURES Final Res ult documented in this encounter Visit Diagnoses Diagnosis Left shoulder pain, unspecified chronicity documented in this encounter Care Teams Buyer Renter Relationship Specialty Start Date End Date Pal Russell MD PCP - General 06/08/17 09/04/21 documented as of this encounter
--- OUTSIDE RECORDS SUMMARY | 2024-06-25 13:58 | XMS_ITS | Encounter Summary ---
Author Organization [facility] Healthcare Address [address] [place] [address] Care Team Providers Care Refuge Manager Name Role Phone Pal Russell MD Primary Care Provider [phone] Reason for Visit * Reason Comments Shortness of Breath Cough Weakness - Generalized Encounter Details Date Type Department Care Team (Late st Contact Info) Description 03/02/2021 1:41 PM CDT - 03/06/2021 1:42 PM CDT Hospital Encounter [facility] [address] [place] [address] Dee Lin MD [address] [place] [address] Karely Moore MD [address] [place] [address] Claus Lee Jr., MD [address] [place] [address] Cleopatra Lobo MD [address] [place] [address] Renu Paniagua MD [address] [place], [place] [id number] Osmany Herzog MD [address] [place] [address] Pneumonia due to COVID-19 virus (Primary Dx); Leukemoid reaction; Hypoxia Discharge Disposition: Discharge to home or self [...] file Legal 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 Gender Identity Not on file Sexual Orientation Not on file documented as of this encounter Last Filed Vital Signs Vital Sign Reading Time Taken Comments Blood Pressure 146/88 03/06/2021 8:03 AM CDT Pulse 72 03/06/2021 8:03 AM CDT Temperature 36.4 ??C (97.5 ??F) 03/06/2021 8:03 AM CD T Respiratory Rate 20 03/06/2021 8:03 AM CDT Oxygen Saturation 95% 03/06/2021 8:03 AM CDT Inhaled Oxygen Concentration - - Weight 91.1 kg (200 lb 14.4 oz) 03/05/2021 3:00 AM CDT Height 172.7 cm (5' 8 ) 03/02/2021 10:2 7 PM CDT Body Mass Index 30.55 03/02/2021 10:27 PM CDT documented in this encounter Discharge Diagnoses Diagnosis COVID-19 - COVID-19 Pneumonia due to coronavirus disease 2019 (CODE) - PNEUMONIA DUE TO CORONAVIRUS DISEASE 2019 Acute respiratory failure with hypoxia (CMS/HCC) (HCC) - ACUTE RESPIRATORY FAILURE WITH HYPOXIA Atherosclerotic heart disease of [place] coronary artery without angina pectoris - ATHEROSCLEROTIC HEART DISEASE OF [place] CORONARY ARTERY WITHOUT ANGINA PECTORIS Essential (primary) hypertension - ESSENTIAL (PRIMARY) HYPERTENSION Unspecified essential hypertension Old myocardial infarction - OLD MYOCARDIAL INFARCTION Obstructive sleep apnea (adult) (pediatric) - OBSTRUCTIVE SLEEP APNEA (ADULT) (PEDIATRIC) Fatty (change of) liver, not elsewhere classified - FATTY (CHANGE OF) LIVER, NOT ELSEWHERE CLASSIFIED Leukemoid reaction - LEUKEMOID REACTION Hyperlipidemia, unspecified - HYPERLIPIDEMIA, UNSPECIFIED rn long term care (current) use of aspirin - USP (CURRENT) USE OF ASPIRIN Other manager long term care (current) drug therapy - 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 providers found Primary Care Physician at Discharge: Pal Russell MD [phone] Admission Date: 03/02/2021 Discharge Date: 03/06/2021 Admission Location: [facility] Problems/Diagnoses: Principal Problem: Pneumonia due to COVID-19 virus Active Problems: Cough Cervical radiculopathy Hyperlipidemia Obstructive sleep apnea syndrome in adult Benign essential HTN Resolved Problems: No resolved hospital problems. DETAILS OF HOSPITAL STAY Presenting Problem/History of Present Illness: Dyspnea Hospital Course: 60 year old with HTN, LUIS F, HLD presenting with dyspnea; COVID-19 dx and weaned off oxygen. 6 more days of steroids; medically stable for DC; lastly was instructed to return to the ED with any recurrent symptoms; pt agreed/understood, all q's answered. F/u outpt fatty liver as outpt. Test Results Pending at Discharge: Pending Labs Order Current Status Blood culture Blood Preliminary result Blood culture Blood Preliminary result Discharge Details Physical Exam at Discharge: Discharge Condition: good Pulse: 72 Resp: 20 BP: 146/88 Temp: 36.4 ??C (97.5 ??F) Weight: 91.1 kg (200 lb 14.4 oz) Pertinent Exam Findings at Discharge: Physical Exam Constitutional: Appearance: He is well-developed. HENT: Head: Normocephalic and atraumatic. Mouth/Throat: Mouth: Mucous membranes are moist. Eyes: Pupils: Pupils are equal, round, and reactive to light. Cardiovascular: Rate and Rhythm: Normal rate and regular rhythm. Pulmonary: Effort: Pulmonary effort is normal. Breath sounds: Normal breath sounds. Abdominal: General: Bowel sounds are normal. Palpations: Abdomen is soft. Musculoskeletal: General: Normal range of motion. Cervical back: Normal range of motion. Skin: General: Skin is warm. Capillary Refill: Capillary refill takes less than 2 seconds. Neurological: General: No focal deficit present. Mental Status: He is alert. Psychiatric: Mood and Affect: Mood normal. Discharge Disposition: Discharge to home or self care Code Status at Discharge: Full Discharge Instructions: Activity Instructions Discharge activity: Resume normal activity Other Instructions Call provider for: Temperature -Temperature greater than 101 degrees F If you have any questions or concerns after discharge please call [facility] [phone]. May be considered covid recovered after 03-08-21. Discharge Medications: Current Medications TAKE these medications amLODIPine 10 mg tablet Take 1 tablet (10 mg total) by mouth daily Commonly known as: NORVASC Notes to patient: Blood pressure aspirin 325 mg tablet Take 325 mg by mouth daily Notes to patient: Blood thinner celecoxib 200 mg capsule Take 1 capsule (200 mg total) by mouth 2 (two) times a day Commonly known as: CeleBREX Notes to patient: Nerve pain cyclobenzaprine 10 mg tablet TAKE 1 TABLET BY MOUTH THREE TIMES DAILY NEEDED FOR MUSCLE SPASMS Commonly known as: FLEXERIL dexAMETHasone 6 mg tablet Take 1 tablet (6 mg total) by mouth daily with breakfast for 6 days Commonly known as: DECADRON Notes to patient: steroid metoprolol XL 100 mg 24 hr tablet Take 1 tablet (100 mg total) by mouth daily For: high blood pressure Commonly known as: TOPROL-XL Notes to patient: Blood pressure montelukast 10 mg tablet Take 1 tablet (10 mg total) by mouth nightly For: seasonal runny nose Commonly known as: SINGULAIR Notes to patient: allergies ondansetron ODT 4 mg disintegrating tablet Dissolve 1 tablet for mild to moderate nausea or vomiting or 2 tablets for severe nausea or vomiting oral twice a day as needed. Commonly known as: ZOFRAN-ODT pravastatin 10 mg tablet Take 1 tablet by mouth once daily Commonly known as: PRAVACHOL Notes to patient: cholesterol traMADoL 50 mg tablet TAKE 1 TABLET BY MOUTH EVERY 6 HOURS Commonly known as: ULTRAM Notes to patient: pain traZODone 50 mg tablet Take 1 tablet (50 mg total) by mouth nightly as needed for sleep For: insomnia associated with depression Commonly known as: DESYREL triamcinolone 55 mcg nasal inhaler Administer 2 sprays into each nostril daily For: inflammation of the nose due to an allergy Commonly known as: NASACORT Notes to patient: Nasal allergies Outpatient Follow-Up: Future Appointments Date Time Provider Department Center 03/19/2021 9:30 AM Moriah Turner NP [facility] Contact Information for Follow-ups Pal Russell MD Specialty: Internal Medicine, Bone Health Relationship: PCP - General [address] [facility] [address] Next Steps: Follow up on 03/19/2021 Instructions: 9:30 AM Total DC time <30 min, 28 min documented in this encounter Discharge Instructions * Discharge Instr - Other Orders* Jolene Randolph RN - 03/06/2021 10:33 AM CDT If you have any questions or concerns after discharge please call [facility] [phone]. May be considered covid recovered after 03-08-21. * Attachments The following attachments cannot be sent through Care Everywhere. * Dexamethasone (By mouth) ([place]) documented in this encounter Medications at Time of Discharge dexAMETHasone (DECADRON) 6 mg tablet Take 1 tablet (6 mg total) by mouth daily with breakfast for 6 days 6 tablet 03/06/2021 1 amLODIPine (NORVASC) 10 mg tablet Take 1 [...] Refills Last Filled Start Date End Date dexAMETHasone (DECADRON) 6 mg tablet Take 1 tablet (6 mg total) by mouth daily with breakfast for 6 days 6 tablet 03/06/2021 1 documented in this encounter Discharge Disposition Disposition Code Departure Means Destination Discharge to home or self care documented in this encounter Progress Notes * Bella Boyd RN - 03/06/2021 8:45 AM CDT DC plan discussed yesterday with patient via phone call. Poss dc today. A dtr will be his ride home. On RA so no need for home O2.Unsure about being dc'd too early like last time bec he came back worse. He will discuss with the MD during rounds. No needs anticipated at this time. 03/06/21 4459 Discharge Planning Support System [facility] No Patient expects to be discharged to: Private residence Does the patient need discharge transport arranged? No * Renu Paniagua MD - 03/05/2021 12:54 PM CDT General Medicine Daily Progress SUBJECTIVE Chief complaint of SOB Interval History: Acute hypoxemic respiratory failure due to COVID-19 multifocal pneumonia. Today he is awake, alert. Coughing copiously. Off oxygen, but state he feels worse today compared to yesterday. I have discussed discharge with the patient and told him that if he improves he will be discharged home tomorrow. OBJECTIVE Vitals: 24hr Min/Max: Temp Min: 35.9 ??C (96.6 ??F) Max: 37.2 ??C (98.9 ??F) Pulse Min: 66 Max: 83 BP Min: 103/70 Max: 128/78 Resp Min: 16 Max: 18 SpO2 Min: 90 % Max: 94 % Most Recent : Vitals: 03/05/21 1122 BP: 128/78 Pulse: 70 Resp: 18 Temp: 36.1 ??C (96.9 ??F) SpO2: 94% I/O last 2 completed shifts: In: 520 [P.O.:520] Out: - I/O this shift: In: 240 [P.O.:240] Out: - Physical Exam: Eyes: EOMI, NED, sclare non icteric Neck: supple, no nuchal ridigity, no gross carotid bruits appreciated Pharynx: No gross oral lesion, tongue midline, mucosa moist Lungs CTA Heart: [id number], no significant murmur or gallop Abd: +BS, Non Tender, Non distended, No gross hepatomegaly Lower Ext: No gross edema, pedal artery pulses are palpable bilaterally Neuro: No new deficits appreciated Musculoskeletal: no gross joint erythema, edema, tenderness Skin: No new change Lab/Current Medication Review: Recent Results (from the past 24 hour(s)) CBC with auto differential Collection Time: 03/05/21 5:27 AM Result Value Ref Range WBC 9.6 3.8 - 9.9 K/cumm Hgb 13.0 13.0 - 17.5 g/dL Hct 40.2 38.9 - 50.3 % Plt 425 (H) 150 - 400 K/cumm MPV 8.4 (L) 9.1 - 12.3 fL RBC 4.29 (L) 4.30 - 5.80 M/cumm MCV 93.7 81.3 - 96.4 fL MCH 30.3 27.1 - 33.3 pg MCHC 32.3 32.3 - 35.7 g/dL RDW CV 12.3 11.1 - 14.9 % RDW SD 42.4 35.7 - 48.1 fL NRBC abs 0.00 0.00 - 0.01 K/cumm Basic metabolic panel Collection Time: 03/05/21 5:27 AM Result Value Ref Range Sodium 139 135 - 145 mmol/L Potassium, pl 4.5 3.3 - 4.9 mmol/L Chloride 105 97 - 110 mmol/L CO2 22 22 - 32 mmol/L Anion gap 12 2 - 15 mmol/L BUN 20 8 - 25 mg/dL Creatinine 0.77 (L) 0.80 - 1.30 mg/dL Glucose 176 70 - 199 mg/dL Calcium 9.1 8.5 - 10.3 mg/dL Magnesium Collection Time: 03/05/21 5:27 AM Result Value Ref Range Magnesium 2.5 1.4 - 2.5 mg/dL Phosphorus Collection Time: 03/05/21 5:27 AM Result Value Ref Range Phosphorus, pl 3.6 2.3 - 4.5 mg/dL Differential, auto Collection Time: 03/05/21 5:27 AM Result Value Ref Range Neutrophil abs 8.4 (H) 1.7 - 6.5 K/cumm Imm gran abs 0.1 0.0 - 0.1 K/cumm Lymphocyte abs 0.9 0.8 - 3.3 K/cumm Monocyte abs 0.2 0.2 - 0.8 K/cumm Eosinophil abs 0.0 0.0 - 0.5 K/cumm Basophil abs 0.0 0.0 - 0.1 K/cumm Neutrophil pct 87.3 % Imm gran pct 1.4 % Lymphocyte pct 9.2 % Monocyte pct 1.9 % Eosinophil pct 0.0 % Basophil pct 0.2 % eGFR Collection Time: 03/05/21 5:27 AM Result Value Ref Range eGFR 98 mL/min/1.73 m2 ECG 12 lead Result Date: 03/03/2021 Narrative: Vent Rate: 88 bpm RR Interval: 679 msec [place] Interval: 195 msec QRS Duration: 125 msec QT Interval: 364 msec QTC Interval: 409 msec P-R-T [place]: 14 - -24 - 95 degrees SINUS RHYTHM VOLTAGE CRITERIA FOR LVH, CONSIDER NORMAL VARIANT [MEETS CRITERIA IN ONE OF: R(aVL), S(V1), R(V5), R(V5/V6)+S(V1)] POSSIBLE ANTERIOR MYOCARDIAL INFARCTION , OF INDETERMINATE AGE [30 ms Q WAVE IN V3/V4, OR R <0.2 mV IN V4] ABNORMAL ECG Electronically Signed By: Dr Claus Manning XR Chest Pa Lateral 2 Views Result Date: 02/25/2021 Narrative: EXAM DESCRIPTION: XR CHEST PA LATERAL 2 VIEWS REASON FOR STUDY: COVID-19 Pt covid positive and says It's past my tenth day, but I'm getting worse . Pt reports decreased appetite, N/V, anddizziness. Pt called PCP yesterday and was told just drink plenty of fluid and if it gets worse goto the ER . Non-smoker Hx of [place] TECHNIQUE: Frontal and lateral radiographic views of the chest acquired. COMPARISON: None FINDINGS: LUNGS/PLEURA: Elevation of the right hemidiaphragm. Mild scattered patchy airspace opacities throughout both lungs, compatible with multifocal pneumonia such as COVID-19. No sizable pleural effusion or pneumothorax. HEART/MEDIASTINUM: Heart size is normal. Normal medi astinal and hilar contours. HARDWARE/LINES/TUBES: None. BONES: No acute findings. OTHER: No other significant finding. IMPRESSION: Mild scattered patchy airspace opacities throughout both lungs, compatible multifocal pneumonia such as COVID-19. Recommend follow-up radiograph in 6-8 weeks. THIS IS AN ELECTRONICALLY VERIFIED FINAL REPORT 02/25/2021 7:44 PM - Electronically signed by Claire Goyal M.D. BG: Report ID: [id number] Reading Location: [place] [address] CT Abdomen Pelvis W Contrast Result Date: 03/02/2021 Narrative: EXAM DESCRIPTION: CT ABDOMEN PELVIS W CONTRAST REASON FOR STUDY: Abdominal infection suspected Cough, SOB, and weakness ongoing for 16 days has increased today. Pt tested positive for covid 16 days ago. Hx of appendectomy, and heart attack. TECHNIQUE: CT scan of the abdomen and pelvis performed with intravenous and without oral contrast using helical scanning technique with dynamic intravenous contrast injection. Reconstructed coronal and sagittal MPR images reviewed. All images stored on PACS. Automated exposure control was used as a dose optimization technique for this examination. CONTRAST TYPE/DOSE: 100mL of IOVERSOL 350 MG IODINE/ML INTRAVENOUS SOLUTION injected via intravenous COMPARISON: None FINDINGS: LOWER CHEST: There are multifocal, patchy infiltrates involving the lower lobes bilaterally characteristic of bilateral pneumonia and consistent with the patient's diagnosis of COVID-19 infection. LIVER: Decreased attenuation as seen with fibrofatty changes. GALLBLADDER: No stones identified. No wall thickening or inflammatory changes. BILE DUCTS: No intrahepatic or e xtrahepatic ductal dilatation. SPLEEN: Normal size. No focal lesions. PANCREAS: No identified cystic or solid masses. No significant calcifications. No adjacent inflammation or peripancreatic fluid collections. Pancreatic duct not dilated. ADRENALS: Normal. KIDNEYS/URINARY TRACT: No identified significant cystic or solid masses. No visualized stones. No hydronephrosis or hydroureter. Symmetric enhancement. Urinary bladder is unremarkable. GI: No dilated bowel loops. No obvious wall thickening. Appendix surgically absent. Scattered diverticular disease without diverticulitis. PERITONEUM: No ascites or free air. RETROPERITONEUM: No mass or adenopathy. REPRODUCTIVE: No significant abnormality.VASCULATURE: No abdominal aortic aneurysm. MUSCULOSKELETAL: No significant abnormality. OTHER: Bilateral inguinal hernias containing only fat. IMPRESSION: 1. Multifocal, patchy infiltrates involving the lower lobes bilaterally characteristic of bilateral pneumonia and consistent with the patient's diagnosis of COVID-19 infection. 2. Fatty infiltration of the liver. 3. Diverticulosis. 4. Small bilateral inguinal hernias containing only fat. THIS IS AN ELECTRONICALLY VERIFIED FINAL REPORT 03/02/2021 7:47 PM - Electronically signed by Seb Leach M.D. KT: KIN Report ID: [id number] Reading Location: [id number] XR Chest 1 Vw Portable Result Date: 03/02/2021 Narrative: EXAM DESCRIPTION: XR CHEST 1 VIEW REASON FOR STUDY: COVID-19 Pt presents to the ED from home with c/o cough, SOB, [place], weakness. Pt was seen here [place] and diagnosed with covid pneumonia and d/c home. Per pts he finished his steroids and still not feeling any better. Symptoms started 16 days ago TECHNIQUE: Frontal radiographic view of the chest acquired. COMPARISON: Prior chest x-rays including 02/25/2021 FINDINGS: LUNGS/PLEURA: Patchy airspace and interstitial opacities throughout both lungs are progressive, particularly in the periphery of the right mid to lower lung. No pneumothorax or large pleural effusion. HEART/MEDIASTINUM: Unchanged cardiomediastinal silhouette. HARDWARE/LINES/TUBES: None. BONES: No acute findings. OTHER: No other significant finding. IMPRESSION: Progressive interstitial and airspace opacities, particularly in the right lower lung. THIS IS AN ELECTRONICALLY VERIFIED FINAL REPORT 03/02/2021 2:35 PM - Electronically signed by Dedrick Gaines M.D. BC: LEISA Report ID: [id number] Reading Location: [place] [address] Transthoracic Echo Complete W Doppler/CF Result Date: 03/03/2021 Narrative: [address] [address] Echocardiogram Report Patient Name: SEAN TERESA G : 03-1961 Study Date: 03/03/2021 14:03:02 Gender: M Tech: EMILY Location: [id number] Ref.Provider: DEE LIN Height(Cm): 173 BSA: 2.14 Weight(Kg): 95.3 Quality: Adequate Order Provider: DEE LIN Procedures: Echocardiographic Report: Transthoracic echocardiogram with complete 2D, M-Mode, and color Doppler examination. Indications: Shortness of Breath; prolonged covid and oxygen. Measurements: 2D/MMode Doppler Measurement Value Normal Range Measurement Value Normal Range EF Teich MM 54.9 [ 55.0 - 70.0 ] percent ORAL Vmax 2.24 [ 2.00 - 4.00 ] cm2 LVIDd MM 4.96 [ 4.20 - 5.90 ] cm AV Mean PG 4 [ 2- 4 ] mmHg LVIDs MM 3.54 [ 2.30 - 3.90 ] cm AV Peak Christiano 1.41 [ 1.00 - 1.70 ] m/s LVPWd MM 1.11 [ 0.60 - 1.00 ] cm AV VTI 22.67 cm IVSd MM 0.98 [ 0.60 - 0.90 ] cm LVOT Diam 2.32 [ 1.70 - 2.10 ] cm LA Dimension 2D 2.34 [ 3.00 - 4.00 ] cm LVOT Peak Christiano 0.74 [ 0.70 - 1.10 ] m/s AoR Diam MM 4.30 [ 2.60 - 3.70 ] cm LVOT VTI 12.65 [ 20.00 - 30.00 ] cm ACS MM 1.72 [ 1.50 - 2.60 ] cm MV E Peak Christiano 0.71 [ 0.60 - 1.30 ] m/s MV A Peak Christiano 0.86 [ 1.00 - 1.20 ] m/s MV Mean PG 1 [ <= 5 ] mmHg MV PHT 40 [ 20 - 100 ] msec MVA 5.50 MV Decel Time 137 [ 104 - 258 ] msec PV Peak Christiano 1.10 [ 0.40 - 0.80 ] m/s TR Peak Christiano 2.07 [ 1.00 - 2.80 ] m/s TR Peak PG 17 mmHg RVSP 27.00 [ 10.00 - 36.00 ] mmHg E' 0.06 E/E' 12.79 PA Pressure 17.00 [ 10.00 - 36.00 ] mmHg Findings: Atrial Septum: The atrial septum is not well visualized. Left Ventricle: Mild concentric left ventricular hypertrophy. Normal global left ventricular systolic function. Diastolic dysfunction is present. Ejection fraction is visually estimated at 60 to 65 %. Left Atrium: The left atrium is normal in size. Right Ventricle: Normal right ventricular size. Right Atrium: The right atrium is normal in size. Aortic Valve: Normal structure of the aortic valve. Mitral Valve: Normal structure of the mitral valve. Trivial regurgitation of the mitral valve. Pulmonic Valve: Pulmonic valve not well visualized. Trivial regurgitation in the pulmonic valve. Tricuspid Valve: Normal structure of the tricuspid valve. Trivial regurgitation in the tricuspid valve. Pericardium: There is an anterior echo free space consistent with epicardial fat pad. Aorta: Normal aortic root. IVC: The IVC is not well visualized. Conclusions: Mild concentric left ventricular hypertrophy. Normal global left ventricular systolic function. Diastolic dysfunction is pre sent. Ejection fraction is visually estimated at 60 to 65 %. Normal structure of the mitral valve. Trivial regurgitation of the mitral valve. Normal structure of the aortic valve. Normal structure ofthe tricuspid valve. Trivial regurgitation in the tricuspid valve. Electronically Signed By: Dr Vicente Musa 2021-03-03 15:44:[address] Chest PE (CTA) W Contrast Result Date: 03/02/2021 Narrative: EXAM DESCRIPTION: CT CHEST PE (CTA) W CONTRAST REASON FOR STUDY: PE suspected, intermediate prob, positive D-dimer Cough, SOB, and weakness ongoing for 16 days has increased today. Pt tested positive for covid 16 days ago. Hx of appendectomy, and heart attack. TECHNIQUE: CT angiogram of the chest performed with intravenous contrast using helical scanning technique with dynamic intravenous contrast injection. Reconstructed coronal and sagittal MPR images reviewed. All images stored onPACS. 3D MIP images rendered on scanning unit and reviewed at time of interpretation. Automated exposure control was used as a dose optimization technique for this examination. CONTRAST TYPE/DOSE: 100mL of IOVERSOL 350 MG IODINE/ML INTRAVENOUS SOLUTION injected via intravenous COMPARISON: None FINDINGS: VASCULATURE: No identified pulmonary emboli. LUNGS: There are multifocal, patchy ground-glass infiltrates involving the upper and lower lobes bilaterally characteristic of bilateral pneumonia and consistent with the patient's diagnosis of COVID-19 infection. PLEURA: No effusion. No pneumothorax. MEDIASTINUM/NII: No identified masses or abnormal nodes. HEART: Heart size is normal with no pericardial effusion. Coronary artery calcification. Recommend clinical correlation for coronary arterydisease. AXILLA: No adenopathy. CHEST WALL: No masses. No subcutaneous air. HARDWARE/LINES/TUBES: None. UPPER ABDOMEN: No significant abnormality. MUSCULOSKELETAL: No significant abnormality. OTHER:No significant abnormality. IMPRESSION: 1. No CT evidence for pulmonary embolus. 2. Multifocal, patchy ground-glass infiltrates involving the upper and lower lobes bilaterally characteristic of bilateral pneumonia and consistent with the patient's diagnosis of COVID-19 infection. 3. Coronary arterycalcification. Recommend clinical correlation for coronary artery disease. THIS IS AN ELECTRONICALLY VERIFIED FINAL REPORT 03/02/2021 7:55 PM - Electronically signed by Seb SantosD. KT: KIN Report ID: [id number] Reading Location: [place] [address] Current Facility-Administered Medications Medication Dose Route Frequency Provider Last Rate Last Admin ??? acetaminophen (TYLENOL) tablet 650 mg 650 mg oral Q4H PRN Dee Lin MD 650 mg at 03/04/21 0144 ??? albuterol HFA (PROVENTIL HFA,VENTOLIN HFA,PROAIR HFA) 90 mcg/actuation inhaler 2 puff 2 puff inhalation Q6H PRN (RT) Karely Moore MD ??? amLODIPine (NORVASC) tablet 10 mg 10 mg oral Daily Cleopatra Lobo MD 10 mg at 03/05/218[address] ??? aspirin tablet 325 mg 325 mg oral Daily Cleopatra Lobo MD 325 mg at 03/05/218[address] ??? atorvastatin (LIPITOR) tablet 10 mg 10 mg oral Daily Cleopatra Lobo MD 10 mg at 03/04/212107 ??? bisacodyl EC (DULCOLAX EC) tablet 10 mg 10 mg oral Daily PRN Cleopatra Lobo MD ??? dexAMETHasone (DECADRON) injection solution 6 mg 6 mg intravenous Q24H eDe Lin MD 6mg at 03/04/212107 ??? enoxaparin (LOVENOX) syringe 40 mg 40 mg subcutaneous Daily-2100 Dee Lin MD 40 mg at 03/04/212107 ??? magnesium hydroxide (MILK OF MAGNESIA) 80 mg/mL (33.3 mg/mL as elemental magnesium) oral suspension 30 mL 30 mL oral Daily PRN Cleopatra Lobo MD ??? metoprolol XL (TOPROL-XL) extended release tablet 100 mg 100 mg oral Daily Cleopatra Lobo MD 100 mg at 03/05/218[address] ??? mineral oil (FLEET MINERAL OIL) enema 1 enema 1 enema rectal Daily PRN Cleopatra Lobo MD ??? ondansetron (ZOFRAN) injection 4 mg 4 mg intravenous Q4H PRN Cleopatra Lobo MD 4 mg at 03/04/21 1546 ??? oxyCODONE (ROXICODONE) tablet 5 mg 5 mg oral Q4H PRN Dee Lin MD 5 mg at 03/04/21 1546 ??? sodium chloride (OCEAN) 0.65 % nasal spray 1 spray 1 spray each nostril Q2H PRN Karely Moore MD 1 spray at 03/03/21 0015 ??? sodium chloride 0.9% flush 0.5-20 mL 0.5-20 mL intra-catheter Q8H Cleopatra Lobo MD 10 mL at 03/04/21 2111 ??? sodium chloride 0.9% flush 0.5-20 mL 0.5-20 mL intra-catheter PRN Cleopatra Lobo MD A/P: Principal Problem: Pneumonia due to COVID-19 virus Active Problems: Cough Cervical radiculopathy Hyperlipidemia Obstructive sleep apnea syndrome in adult Benign essential HTN Resolved Problems: No resolved hospital problems. Acute hypoxic Respiratory Failure 2/2 COVID PNA ?? Plan: Of oxygen IV Decadron daily Antibiotics have been discontinued ?? Hypertension Hyperlipidema Currently normotensive Continue with statins Cont with home dose metoprolol and amlodipine ? Cervical radiculopathy Tylenol for pain ?? Obstructive sleep apnea Not on CPAP Continuous saturation monitor ? DVT prophylaxis: lovenox Code status: full Anticipated length of stay to be 2-3 days MDM moderate ( time spent 25 minutes) Voice recognition software MModal Fluency Direct was used dictate and transcribe this document. [place] variances may occur. Despite proofreading, typographical errors may occur. Renu Paniagua MD 03/05/2021 12:54 PM * Renu Paniagua MD - 03/04/2021 1:57 PM CDT General Medicine Daily Progress SUBJECTIVE Chief complaint of SOB Interval History: Acute hypoxemic respiratory failure due to COVID-19 multifocal pneumonia. Today he is awake, alert. Coughing copiously. On oxygen. OBJECTIVE Vitals: 24hr Min/Max: Temp Min: 36 ??C (96.8 ??F) Max: 36.2 ??C (97.2 ??F) Pulse Min: 61 Max: 90 BP Min: 107/76 Max: 148/88 Resp Min: 14 Max: 20 SpO2 Min: 91 % Max: 97 % Most Recent : Vitals: 03/04/21 1054 BP: 118/81 Pulse: 67 Resp: 16 Temp: 36.2 ??C (97.1 ??F) SpO2: 95% I/O last 2 completed shifts: In: 490 [P.O.:480; IV Piggyback:10] Out: - No intake/output data recorded. Physical Exam: Eyes: EOMI, NED, sclare non icteric Neck: supple, no nuchal ridigity, no gross carotid bruits appreciated Pharynx: No gross oral lesion, tongue midline, mucosa moist Lungs CTA Heart: [id number], no significant murmur or gallop Abd: +BS, Non Tender, Non distended, No gross hepatomegaly Lower Ext: No gross edema, pedal artery pulses are palpable bilaterally Neuro: No new deficits appreciated Musculoskeletal: no gross joint erythema, edema, tenderness Skin: No new change Lab/Current Medication Review: Recent Results (from the past 24 hour(s)) CBC with auto differential Collection Time: 03/04/21 5:02 AM Result Value Ref Range WBC 8.6 3.8 - 9.9 K/cumm Hgb 13.1 13.0 - 17.5 g/dL Hct 39.7 38.9 - 50.3 % Plt 422 (H) 150 - 400 K/cumm MPV 8.5 (L) 9.1 - 12.3 fL RBC 4.30 4.30 - 5.80 M/cumm MCV 92.3 81.3 - 96.4 fL MCH 30.5 27.1 - 33.3 pg MCHC 33.0 32.3 - 35.7 g/dL RDW CV 12.4 11.1 - 14.9 % RDW SD 42.0 35.7 - 48.1 fL NRBC abs 0.00 0.00 - 0.01 K/cumm Basic metabolic panel Collection Time: 03/04/21 5:02 AM Result Value Ref Range Sodium 138 135 - 145 mmol/L Potassium, pl 4.7 3.3 - 4.9 mmol/L Chloride 104 97 - 110 mmol/L CO2 21 (L) 22 - 32 mmol/L Anion gap 13 2 - 15 mmol/L BUN 21 8 - 25 mg/dL Creatinine 0.75 (L) 0.80 - 1.30 mg/dL Glucose 174 70 - 199 mg/dL Calcium 8.7 8.5 - 10.3 mg/dL Magnesium Collection Time: 03/04/21 5:02 AM Result Value Ref Range Magnesium 2.5 1.4 - 2.5 mg/dL Phosphorus Collection Time: 03/04/21 5:02 AM Result Value Ref Range Phosphorus, pl 3.8 2.3 - 4.5 mg/dL Differential, auto Collection Time: 03/04/21 5:02 AM Result Value Ref Range Neutrophil abs 7.4 (H) 1.7 - 6.5 K/cumm Imm gran abs 0.2 (H) 0.0 - 0.1 K/cumm Lymphocyte abs 0.8 0.8 - 3.3 K/cumm Monocyte abs 0.2 0.2 - 0.8 K/cumm Eosinophil abs 0.0 0.0 - 0.5 K/cumm Basophil abs 0.0 0.0 - 0.1 K/cumm Neutrophil pct 86.7 % Imm gran pct 1.9 % Lymphocyte pct 8.7 % Monocyte pct 2.4 % Eosinophil pct 0.0 % Basophil pct 0.3 % eGFR Collection Time: 03/04/21 5:02 AM Result Value Ref Range eGFR 99 mL/min/1.73 m2 ECG 12 lead Result Date: 03/03/2021 Narrative: Vent Rate: 88 bpm RR Interval: 679 msec [place] Interval: 195 msec QRS Duration: 125 msec QT Interval: 364 msec QTC Interval: 409 msec P-R-T [place]: 14 - -24 - 95 degrees SINUS RHYTHM VOLTAGE CRITERIA FOR LVH, CONSIDER NORMAL VARIANT [MEETS CRITERIA IN ONE OF: R(aVL), S(V1), R(V5), R(V5/V6)+S(V1)] POSSIBLE ANTERIOR MYOCARDIAL INFARCTION , OF INDETERMINATE AGE [30 ms Q WAVE IN V3/V4, OR R <0.2 mV IN V4] ABNORMAL ECG Electronically Signed By: Dr Claus Manning XR Chest Pa Lateral 2 Views Result Date: 02/25/2021 Narrative: EXAM DESCRIPTION: XR CHEST PA LATERAL 2 VIEWS REASON FOR STUDY: COVID-19 Pt covid positive and says It's past my tenth day, but I'm getting worse . Pt reports decreased appetite, N/V, anddizziness. Pt called PCP yesterday and was told just drink plenty of fluid and if it gets worse goto the ER . Non-smoker Hx of RI TECHNIQUE: Frontal and lateral radiographic views of the chest acquired. COMPARISON: None FINDINGS: LUNGS/PLEURA: Elevation of the right hemidiaphragm. Mild scattered patchy airspace opacities throughout both lungs, compatible with multifocal pneumonia such as COVID-19. No sizable pleural effusion or pneumothorax. HEART/MEDIASTINUM: Heart size is normal. Normal medi astinal and hilar contours. HARDWARE/LINES/TUBES: None. BONES: No acute findings. OTHER: No other significant finding. IMPRESSION: Mild scattered patchy airspace opacities throughout both lungs, compatible multifocal pneumonia such as COVID-19. Recommend follow-up radiograph in 6-8 weeks. THIS IS AN ELECTRONICALLY VERIFIED FINAL REPORT 02/25/2021 7:44 PM - Electronically signed by Claire Goyal M.D. BG: Report ID: [id number] Reading Location: [place] [id number] CT Abdomen Pelvis W Contrast Result Date: 03/02/2021 Narrative: EXAM DESCRIPTION: CT ABDOMEN PELVIS W CONTRAST REASON FOR STUDY: Abdominal infection suspected Cough, SOB, and weakness ongoing for 16 days has increased today. Pt tested positive for covid 16 days ago. Hx of appendectomy, and heart attack. TECHNIQUE: CT scan of the abdomen and pelvis performed with intravenous and without oral contrast using helical scanning technique with dynamic intravenous contrast injection. Reconstructed coronal and sagittal MPR images reviewed. All images stored on PACS. Automated exposure control was used as a dose optimization technique for this examination. CONTRAST TYPE/DOSE: 100mL of IOVERSOL 350 MG IODINE/ML INTRAVENOUS SOLUTION injected via intravenous COMPARISON: None FINDINGS: LOWER CHEST: There are multifocal, patchy infiltrates involving the lower lobes bilaterally characteristic of bilateral pneumonia and consistent with the patient's diagnosis of COVID-19 infection. LIVER: Decreased attenuation as seen with fibrofatty changes. GALLBLADDER: No stones identified. No wall thickening or inflammatory changes. BILE DUCTS: No intrahepatic or e xtrahepatic ductal dilatation. SPLEEN: Normal size. No focal lesions. PANCREAS: No identified cystic or solid masses. No significant calcifications. No adjacent inflammation or peripancreatic fluid collections. Pancreatic duct not dilated. ADRENALS: Normal. KIDNEYS/URINARY TRACT: No identified significant cystic or solid masses. No visualized stones. No hydronephrosis or hydroureter. Symmetric enhancement. Urinary bladder is unremarkable. GI: No dilated bowel loops. No obvious wall thickening. Appendix surgically absent. Scattered diverticular disease without diverticulitis. PERITONEUM: No ascites or free air. RETROPERITONEUM: No mass or adenopathy. REPRODUCTIVE: No significant abnormality.VASCULATURE: No abdominal aortic aneurysm. MUSCULOSKELETAL: No significant abnormality. OTHER: Bilateral inguinal hernias containing only fat. IMPRESSION: 1. Multifocal, patchy infiltrates involving the lower lobes bilaterally characteristic of bilateral pneumonia and consistent with the patient's diagnosis of COVID-19 infection. 2. Fatty infiltration of the liver. 3. Diverticulosis. 4. Small bilateral inguinal hernias containing only fat. THIS IS AN ELECTRONICALLY VERIFIED FINAL REPORT 03/02/2021 7:47 PM - Electronically signed by Seb Leach M.D. KT: KIN Report ID: [id number] Reading Location: [id number] XR Chest 1 Vw Portable Result Date: 03/02/2021 Narrative: EXAM DESCRIPTION: XR CHEST 1 VIEW REASON FOR STUDY: COVID-19 Pt presents to the ED from home with c/o cough, SOB, [place], weakness. Pt was seen here [facility] and diagnosed with covid pneumonia and d/c home. Per pts he finished his steroids and still not feeling any better. Symptoms started 16 days ago TECHNIQUE: Frontal radiographic view of the chest acquired. COMPARISON: Prior chest x-rays including 02/25/2021 FINDINGS: LUNGS/PLEURA: Patchy airspace and interstitial opacities throughout both lungs are progressive, particularly in the periphery of the right mid to lower lung. No pneumothorax or large pleural effusion. HEART/MEDIASTINUM: Unchanged cardiomediastinal silhouette. HARDWARE/LINES/TUBES: None. BONES: No acute findings. OTHER: No other significant finding. IMPRESSION: Progressive interstitial and airspace opacities, particularly in the right lower lung. THIS IS AN ELECTRONICALLY VERIFIED FINAL REPORT 03/02/2021 2:35 PM - Electronically signed by Dedrick Gaines M.D. BC: LEISA Report ID: [id number] Reading Location: [id number] Transthoracic Echo Complete W Doppler/CF Result Date: 03/03/2021 Narrative: [address] [place] [address] Echocardiogram Report Patient Name: SEAN TERESA G : 1960 Study Date: 03/03/2021 14:03:02 Gender: M Tech: EMILY Location: [id number] Ref.Provider: DEE LIN Height(Cm): 173 BSA: 2.14 Weight(Kg): 95.3 Quality: Adequate Order Provider: DEE LIN Procedures: Echocardiographic Report: Transthoracic echocardiogram with complete 2D, M-Mode, and color Doppler examination. Indications: Shortness of Breath; prolonged covid and oxygen. Measurements: 2D/MMode Doppler Measurement Value Normal Range Measurement Value Normal Range EF Teich MM 54.9 [ 55.0 - 70.0 ] percent ORAL Vmax 2.24 [ 2.00 - 4.00 ] cm2 LVIDd MM 4.96 [ 4.20 - 5.90 ] cm AV Mean PG 4 [2 - 4 ] mmHg LVIDs MM 3.54 [ 2.30 - 3.90 ] cm AV Peak Christiano 1.41 [ 1.00 - 1.70 ] m/s LVPWd MM 1.11 [0.60 - 1.00 ] cm AV VTI 22.67 cm IVSd MM 0.98 [ 0.60 - 0.90 ] cm LVOT Diam 2.32 [ 1.70 - 2.10 ] cmLA Dimension 2D 2.34 [ 3.00 - 4.00 ] cm LVOT Peak Christiano 0.74 [ 0.70 - 1.10 ] m/s AoR Diam MM 4.30 [ 2.60 - 3.70 ] cm LVOT VTI 12.65 [ 20.00 - 30.00 ] cm ACS MM 1.72 [ 1.50 - 2.60 ] cm MV E Peak Christiano 0.71 [ 0.60 - 1.30 ] m/s MV A Peak Christiano 0.86 [ 1.00 - 1.20 ] m/s MV Mean PG 1 [ <= 5 ] mmHg MV PHT 40 [ 20 - 100 ] msec MVA 5.50 MV Decel Time 137 [ 104 - 258 ] msec PV Peak Christiano 1.10 [ 0.40 - 0.80 ] m/s TR Peak Christiano 2.07 [ 1.00 - 2.80 ] m/s TR Peak PG 17 mmHg RVSP 27.00 [ 10.00 - 36.00 ] mmHg E' 0.06 E/E' 12.79 PA Pressure 17.00 [ 10.00 - 36.00 ] mmHg Findings: Atrial Septum: The atrial septumis not well visualized. Left Ventricle: Mild concentric left ventricular hypertrophy. Normal globalleft ventricular systolic function. Diastolic dysfunction is present. Ejection fraction is visuallyestimated at 60 to 65 %. Left Atrium: The left atrium is normal in size. Right Ventricle: Normal right ventricular size. Right Atrium: The right atrium is normal in size. Aortic Valve: Normal structure of the aortic valve. Mitral Valve: Normal structure of the mitral valve. Trivial regurgitation ofthe mitral valve. Pulmonic Valve: Pulmonic valve not well visualized. Trivial regurgitation in the pulmonic valve. Tricuspid Valve: Normal structure of the tricuspid valve. Trivial regurgitation in the tricuspid valve. Pericardium: There is an anterior echo free space consistent with epicardial fatpad. Aorta: Normal aortic root. IVC: The IVC is not well visualized. Conclusions: Mild concentric left ventricular hypertrophy. Normal global left ventricular systolic function. Diastolic dysfunctionis present. Ejection fraction is visually estimated at 60 to 65 %. Normal structure of the mitral valve. Trivial regurgitation of the mitral valve. Normal structure of the aortic valve. Normal structure of the tricuspid valve. Trivial regurgitation in the tricuspid valve. Electronically Signed By: Dr Vicente Musa 2021-03-03 15:44:[address] Chest PE (CTA) W Contrast Result Date: 03/02/2021 Narrative: EXAM DESCRIPTION: CT CHEST PE (CTA) W CONTRAST REASON FOR STUDY: PE suspected, intermediate prob, positive D-dimer Cough, SOB, and weakness ongoing for 16 days has increased today. Pt tested positive for covid 16 days ago. Hx of appendectomy, and heart attack. TECHNIQUE: CT angiogram of the chest performed with intravenous contrast using helical scanning technique with dynamic intravenous contrast injection. Reconstructed coronal and sagittal MPR images reviewed. All images stored onPACS. 3D MIP images rendered on scanning unit and reviewed at time of interpretation. Automated exposure control was used as a dose optimization technique for this examination. CONTRAST TYPE/DOSE: 100mL of IOVERSOL 350 MG IODINE/ML INTRAVENOUS SOLUTION injected via intravenous COMPARISON: None FINDINGS: VASCULATURE: No identified pulmonary emboli. LUNGS: There are multifocal, patchy ground-glassinfiltrates involving the upper and lower lobes bilaterally characteristic of bilateral pneumonia and consistent with the patient's diagnosis of COVID-19 infection. PLEURA: No effusion. No pneumothorax. MEDIASTINUM/NII: No identified masses or abnormal nodes. HEART: Heart size is normal with no pericardial effusion. Coronary artery calcification. Recommend clinical correlation for coronary artery disease. AXILLA: No adenopathy. CHEST WALL: No masses. No subcutaneous air. HARDWARE/LINES/TUBES: None. UPPER ABDOMEN: No significant abnormality. MUSCULOSKELETAL: No significant abnormality. OTHER:No significant abnormality. IMPRESSION: 1. No CT evidence for pulmonary embolus. 2. Multifocal, patchy ground-glass infiltrates involving the upper and lower lobes bilaterally characteristic of bilateral pneumonia and consistent with the patient's diagnosis of COVID-19 infection. 3. Coronary arterycalcification. Recommend clinical correlation for coronary artery disease. THIS IS AN ELECTRONICALLY VERIFIED FINAL REPORT 03/02/2021 7:55 PM - Electronically signed by Seb Leach M.D. KT: KIN Report ID: [id number] Reading Location: [id number] Current Facility-Administered Medications Medication Dose Route Frequency Provider Last Rate Last Admin ??? acetaminophen (TYLENOL) tablet 650 mg 650 mg oral Q4H PRN Dee Lin MD 650 mg at 03/04/21 0144 ??? albuterol HFA (PROVENTIL HFA,VENTOLIN HFA,PROAIR HFA) 90 mcg/actuation inhaler 2 puff 2 puff inhalation Q6H PRN (RT) Karely Moore MD ??? albuterol HFA (PROVENTIL HFA,VENTOLIN HFA,PROAIR HFA) 90 mcg/actuation inhaler 2 puff 2 puff inhalation Q6H BRIAN (RT) Lydia Snow, BLANCA 2 puff at 03/04/21 08 ??? amLODIPine (NORVASC) tablet 10 mg 10 mg oral Daily Cleopatra Lobo MD 10 mg at 03/04/21837 ??? aspirin tablet 325 mg 325 mg oral Daily Cleopatra Lobo MD 325 mg at 03/04/21837 ??? atorvastatin (LIPITOR) tablet 10 mg 10 mg oral Daily Cleopatra Lobo MD 10 mg at 03/03/212031 ??? azithromycin (ZITHROMAX) tablet 500 mg 500 mg oral Daily Dee Lin MD 500 mg at 03/04/21837 ??? bisacodyl EC (DULCOLAX EC) tablet 10 mg 10 mg oral Daily PRN Cleopatra Lobo MD ??? cefTRIAXone (ROCEPHIN) 1,000 mg/10 mL in sterile water (premix) 1,000 mg 1,000 mg intravenous Q24H [facility] Dee Lin MD 1,000 mg at 03/04/21837 ??? dexAMETHasone (DECADRON) injection solution 6 mg 6 mg intravenous Q24H Dee Lin MD 6mg at 03/03/212031 ??? enoxaparin (LOVENOX) syringe 40 mg 40 mg subcutaneous Daily-2100 Dee Lin MD 40 mg at 03/03/212031 ??? magnesium hydroxide (MILK OF MAGNESIA) 80 mg/mL (33.3 mg/mL as elemental magnesium) oral suspension 30 mL 30 mL oral Daily PRN Cleopatra Lobo MD ??? metoprolol XL (TOPROL-XL) extended release tablet 100 mg 100 mg oral Daily Cleopatra Lobo MD 100 mg at 03/04/21837 ??? mineral oil (FLEET MINERAL OIL) enema 1 enema 1 enema rectal Daily PRN Cleopatra Lobo MD ??? ondansetron (ZOFRAN) injection 4 mg 4 mg intravenous Q4H PRN Cleopatra Lobo MD ??? oxyCODONE (ROXICODONE) tablet 5 mg 5 mg oral Q4H PRN Dee Lin MD ??? sodium chloride (OCEAN) 0.65 % nasal spray 1 spray 1 spray each nostril Q2H PRN Karely Moore MD 1 spray at 03/03/21 0015 ??? sodium chloride 0.9% flush 0.5-20 mL 0.5-20 mL intra-catheter Q8H Cleopatra Lobo MD ??? sodium chloride 0.9% flush 0.5-20 mL 0.5-20 mL intra-catheter PRN Cleopatra Lobo MD A/P: Principal Problem: Pneumonia due to COVID-19 virus Active Problems: Cough Cervical radiculopathy Hyperlipidemia Obstructive sleep apnea syndrome in adult Benign essential HTN Resolved Problems: No resolved hospital problems. Acute hypoxic Respiratory Failure 2/2 COVID PNA ?? Plan: Supplemental oxygen prn, currently on 3 L Sat 97% IV Decadron daily Ceftriaxone and Azithromycin for empiric coverage of superimposed bacterial infection Follow up procal, can discontinue Abx if negative Supportive management: albuterol q4h an Tylenol for pain? Hypertension Hyperlipidema Currently normotensive Continue with statins Cont with home dose metoprolol and amlodipine ? Cervical radiculopathy Tylenol for pain ?? Obstructive sleep apnea Not on CPAP Continuous saturation monitor ? DVT prophylaxis: lovenox Code status: full Anticipated length of stay to be 2-3 days MDM moderate ( time spent 25 minutes) Voice recognition software MModal Fluency Direct was used dictate and transcribe this document. [place] variances may occur. Despite proofreading, typographical errors may occur. Renu Paniagua MD 03/04/2021 1:57 PM * Bella Boyd RN - 03/03/2021 2:47 PM CDT CM Initial Assessment Interview Note Information Obtained From: Patient (03/03/21 8693) Admission Source: ED Impression: c/o cough, covid + on 02/25-worsening cough Plan Includes: Assessment and DC planning Primary Source of Transportation: Does the patient need discharge transport arranged?: No (03/02/21 1340) Health Insurance Coverage: Medicare A/B Prescription Coverage: yes [facility]acy: [facility] [place] Primary Care Provider: Pal Russell MD Prior to Admission: Primary Caregiver: Self Support System: Children Home Care Services: No Durable Medical Equipment: None Living Arrangements: Alone Type of Residence: Private residence Steps in home? : Yes, Inside home Number of steps inside:: 13 steps (03/02/21 1340) Potential discharge needs include: Dialysis: Behavioral Health Services: Behavioral Health Services: No (03/03/21 1443) Patient expects to be Discharged to: Private residence, (03/03/21 1443) Additional Information: DC plan discussed with patient via phone call. Goal is to return home-alone. A dtr will be his ride home. Is on O2 at 4 lpm and doesn't wear it at home so that might be a barrier to dc. Barrier to dc is resolution of pna d/t covid. No other needs noted at this time. Patient's Identified Problem/Goal Problem: Ensure acute medical needs are met and that patient has a safe discharge plan. Goal: Secure a discharge plan that patient/family are agreeable with and ensure patient has continuum of care. Case management will follow for discharge planning and send referrals as needed. Bella Boyd RN documented in this encounter H&P Notes * Cleopatra Lobo MD - 03/03/2021 5:52 PM CDT History and Physical Hospitalists services Date of service: 03/03/2021 Primary care provider: Cleopatra Lobo MD HPI: This is a 60 year old male, non smoker, with PMH of HTN, HLD and LUIS F who presented to the ED with cc of sob. Patient tested positive for COVID-10 on 02/18/2021. Initially had nasal congestion, loss of smell, [...] IV and inhaler treatment. Admitted forfurther management. Past Medical History: Diagnosis Date ??? Arthritis ??? Gout ??? Headache ??? Old myocardial infarction History of non-ST elevation myocardial infarction (NSTEMI) - (Added by TW Conv) Past Surgical History: Procedure Laterality Date ??? BACK SURGERY ??? [place] APPENDECTOMY Appendectomy - (Added by TW Conv) Medications Prior to Admission Medication Sig Dispense Refill Last Dose ??? traMADoL (ULTRAM) 50 mg tablet TAKE 1 TABLET BY MOUTH EVERY 6 HOURS 30 tablet 0 Past Week at Unknown time ??? amLODIPine (NORVASC) 10 mg tablet Take 1 tablet (10 mg total) by mouth daily 90 tablet 3 03/01/2021 at Unknown time ??? aspirin 325 mg tablet Take 325 mg by mouth daily 03/01/2021 at Unknown time ??? celecoxib (CeleBREX) 200 mg capsule Take 1 capsule (200 mg total) by mouth 2 (two) times a day 60 capsule 11 Past Week at Unknown time ??? cyclobenzaprine (FLEXERIL) 10 mg tablet TAKE 1 TABLET BY MOUTH THREE TIMES DAILY NEEDED FOR MUSCLE SPASMS 30 tablet 0 Past Month at Unknown time ??? metoprolol XL (TOPROL-XL) 100 mg 24 hr tablet Take 1 tablet (100 mg total) by mouth daily 30 tablet 11 03/01/2021 at Unknown time ??? montelukast (SINGULAIR) 10 mg tablet Take 1 tablet (10 mg total) by mouth nightly 30 tablet 11 Past Week at Unknown time ??? ondansetron ODT (ZOFRAN-ODT) 4 mg disintegrating tablet Dissolve 1 tablet for mild to moderate nausea or vomiting or 2 tablets for severe nausea or vomiting oral twice a day as needed. 15 tablet 0 03/01/2021 at Unknown time ??? pravastatin (PRAVACHOL) 10 mg tablet Take 1 tablet by mouth once daily 90 tablet 1 03/01/2021 atUnknown time ??? traZODone (DESYREL) 50 mg tablet Take 1 tablet (50 mg total) by mouth nightly as needed for sleep 30 tablet 3 Past Week at Unknown time ??? triamcinolone (NASACORT) 55 mcg nasal inhaler Administer 2 sprays into each nostril daily 16.9 mL 3 Past Week at Unknown time No Known Allergies Social History Tobacco Use ??? Smoking status: Never Smoker ??? Smokeless tobacco: Never Used Substance Use Topics ??? Alcohol use: Yes Family History Problem Relation Age of Onset ??? Heart attack Brother Family history of heart attack - (Added by TW Conv) ??? Heart disease Brother ??? Heart disease Mother ??? Arthritis Mother ??? Hypertension Mother ??? Arthritis Father Review of Systems: 1. Constitutional Denies: weight loss, weight gain, fever, chills, night sweats, fatigue 2. Eyes Denies: change in vision, double vision, eye pain, eye discharge, icterus 3. ENT Denies: change in hearing, ear pain, ear discharge, nose bleed, nasal congestion, sore throat 4. Respiratory Denies: wheezing, cough, sputum, hemoptysis 5. CV Denies: chest pain, palpitations, syncope, edema, dyspnea 6. GI Denies: abdominal pain, decreased appetite, nausea, vomiting, change in bowel habitus, diarrhea, constipation, melena, BRBPR 7. Denies: dysuria, frequency, hematuria, nocturia, urgency 8. Metabolic Denies: cold intolerance, heat intolerance, polyphagia, polydipsia 9. Neurologic Denies: headache, dizziness, seizure, change in mental status, focal weakness, focal numbness 10. Musculoskeletal Denies: myalgia, joint pain, joint redness, joint swelling, extremity pain 11. Hematologic Denies: bleeding, bruising, hematoma, lymphadenopathy, icterus 12. Skin Denies open wounds, redness, new pigmentation, new change of color OBJECTIVE Vitals: Arrival Vitals Temp 03/02/21 1339 36.6 ??C (97.9 ??F) Pulse 03/02/21 1339 80 Resp 03/02/21 1339 24 BP 03/02/21 1339 119/82 SpO2 03/02/21 1339 90 % Temp src 03/02/21 1339 Temporal Heart Rate Source -- Patient Position 03/02/21 2227 Lying BP Location 03/02/21 2227 Right arm FiO2 (%) -- 24hr Min/Max: Temp Min: 36 ??C (96.8 ??F) Max: 36.4 ??C (97.6 ??F) Pulse Min: 68 Max: 98 BP Min: 127/84 Max: 148/88 Resp Min: 16 Max: 20 SpO2 Min: 90 % Max: 98 % Most Recent : Vitals: 03/03/21 1800 BP: Pulse: 88 Resp: Temp: SpO2: Intake/Output Summary (Last 24 hours) at 03/03/2021 194 Last data filed at 03/03/2021 1410 Gross per 24 hour Intake 1490 ml Output -- Net 1490 ml Physical exam: Eyes: EOMI, NED, sclare non icteric Neck: supple, no nuchal ridigity, no gross carotid bruits appreciated ENT: No gross oral lesion, tongue midline, mucosa moist Respiratory: Lungs -CTA bilaterally, good inspiratory effort Cardiovascular: Heart sounds- [id number], no significant murmur or gallop GI: Abdomen-+BS, Non Tender, Non distended, No gross hepatomegaly Lower Ext: No gross edema, pedal artery pulses present bilaterally Neuro: Muscular Strength upper and lower extremities 5/5 bilaterally, elbow reflux bilaterally normal, knee reflux bilaterally normal, Babinski negative, sensory intact, cranial nerves 2-12 within normal limits, good coordination, normal speech Musculoskeletal: no gross joint erythema, edema, tenderness Genitourinary: No New change Skin: No new change Psychiatric: Normal affect, good judgment Lab/Radiology/Diagnostic Review: Recent Results (from the past 24 hour(s)) Blood culture Blood Collection Time: 03/02/21 8:06 PM Specimen: Blood Result Value Ref Range Report Preliminary Report: No growth to date. ECG 12 lead Result Date: 03/03/2021 Narrative: Vent Rate: 88 bpm RR Interval: 679 msec [place] Interval: 195 msec QRS Duration: 125 msec QT Interval: 364 msec QTC Interval: 409 msec P-R-T [place]: 14 - -24 - 95 degrees SINUS RHYTHM VOLTAGE CRITERIA FOR LVH, CONSIDER NORMAL VARIANT [MEETS CRITERIA IN ONE OF: R(aVL), S(V1), R(V5), R(V5/V6)+S(V1)] POSSIBLE ANTERIOR MYOCARDIAL INFARCTION , OF INDETERMINATE AGE [30 ms Q WAVE IN V3/V4, OR R <0.2 mV IN V4] ABNORMAL ECG Electronically Signed By: Dr Claus Manning XR Chest Pa Lateral 2 Views Result Date: 02/25/2021 Narrative: EXAM DESCRIPTION: XR CHEST PA LATERAL 2 VIEWS REASON FOR STUDY: COVID-19 Pt covid positive and says It's past my tenth day, but I'm getting worse . Pt reports decreased appetite, N/V, anddizziness. Pt called PCP yesterday and was told just drink plenty of fluid and if it gets worse goto the ER . Non-smoker Hx of RI TECHNIQUE: Frontal and lateral radiographic views of the chest acquired. COMPARISON: None FINDINGS: LUNGS/PLEURA: Elevation of the right hemidiaphragm. Mild scatteredpatchy airspace opacities throughout both lungs, compatible with multifocal pneumonia such as COVID-19. No sizable pleural effusion or pneumothorax. HEART/MEDIASTINUM: Heart size is normal. Normal med iastinal and hilar contours. HARDWARE/LINES/TUBES: None. BONES: No acute findings. OTHER: No other significant finding. IMPRESSION: Mild scattered patchy airspace opacities throughout both lungs, compatible multifocal pneumonia such as COVID-19. Recommend follow-up radiograph in 6-8 weeks. THIS IS AN ELECTRONICALLY VERIFIED FINAL REPORT 02/25/2021 7:44 PM - Electronically signed by Claire Goyal M.D. BG: Report ID: [id number] Reading Location: [place] [address] CT Abdomen Pelvis W Contrast Result Date: 03/02/2021 Narrative: EXAM DESCRIPTION: CT ABDOMEN PELVIS W CONTRAST REASON FOR STUDY: Abdominal infection suspected Cough, SOB, and weakness ongoing for 16 days has increased today. Pt tested positive for covid 16 days ago. Hx of appendectomy, and heart attack. TECHNIQUE: CT scan of the abdomen and pelvis performed with intravenous and without oral contrast using helical scanning technique with dynamic intravenous contrast injection. Reconstructed coronal and sagittal MPR images reviewed. All images stored on PACS. Automated exposure control was used as a dose optimization technique for this examination. CONTRAST TYPE/DOSE: 100mL of IOVERSOL 350 MG IODINE/ML INTRAVENOUS SOLUTION injected via intravenous COMPARISON: None FINDINGS: LOWER CHEST: There are multifocal, patchy infiltrates involving the lower lobes bilaterally characteristic of bilateral pneumonia and consistent with the patient's diagnosis of COVID-19 infection. LIVER: Decreased attenuation as seen with fibrofatty changes. GALLBLADDER: No stones identified. No wall thickening or inflammatory changes. BILE DUCTS: No intrahepatic or e xtrahepatic ductal dilatation. SPLEEN: Normal size. No focal lesions. PANCREAS: No identified cystic or solid masses. No significant calcifications. No adjacent inflammation or peripancreatic fluid collections. Pancreatic duct not dilated. ADRENALS: Normal. KIDNEYS/URINARY TRACT: No identified significant cystic or solid masses. No visualized stones. No hydronephrosis or hydroureter. Symmetric enhancement. Urinary bladder is unremarkable. GI: No dilated bowel loops. No obvious wall thickening. Appendix surgically absent. Scattered diverticular disease without diverticulitis. PERITONEUM: No ascites or free air. RETROPERITONEUM: No mass or adenopathy. REPRODUCTIVE: No significant abnormality.VASCULATURE: No abdominal aortic aneurysm. MUSCULOSKELETAL: No significant abnormality. OTHER: Bilateral inguinal hernias containing only fat. IMPRESSION: 1. Multifocal, patchy infiltrates involving the lower lobes bilaterally characteristic of bilateral pneumonia and consistent with the patient's diagnosis of COVID-19 infection. 2. Fatty infiltration of the liver. 3. Diverticulosis. 4. Small bilateral inguinal hernias containing only fat. THIS IS AN ELECTRONICALLY VERIFIED FINAL REPORT 03/02/2021 7:47 PM - Electronically signed by Seb Leach M.D. KT: KT Report ID: [id number] Reading Location: [place] [address] XR Chest 1 Vw Portable Result Date: 03/02/2021 Narrative: EXAM DESCRIPTION: XR CHEST 1 VIEW REASON FOR STUDY: COVID-19 Pt presents to the ED from home with c/o cough, SOB, [place], weakness. Pt was seen here Wednesday and diagnosed with covid pneumonia and d/c home. Per pts he finished his steroids and still not feeling any better. Symptoms started 16 days ago TECHNIQUE: Frontal radiographic view of the chest acquired. COMPARISON: Prior chest x-rays including 02/25/2021 FINDINGS: LUNGS/PLEURA: Patchy airspace and interstitial opacities throughout both lungs are progressive, particularly in the periphery of the right mid to lower lung. No pneumothorax or large pleural effusion. HEART/MEDIASTINUM: Unchanged cardiomediastinal silhouette. HARDWARE/LINES/TUBES: None. BONES: No acute findings. OTHER: No other significant finding. IMPRESSION: Progressive interstitial and airspace opacities, particularly in the right lower lung. THIS IS AN ELECTRONICALLY VERIFIED FINAL REPORT 03/02/2021 2:35 PM - Electronically signed by Dedrick Gaines M.D. BC: LEISA Report ID: [id number] Reading Location: [id number] Transthoracic Echo Complete W Doppler/CF Result Date: 03/03/2021 Narrative: [address] [address] Echocardiogram Report Patient Name: SEAN TERESA G : 1960 Study Date: 03/03/2021 14:03:02 Gender: M Tech: Location: [id number] Ref.Provider: DEE LIN Height(Cm): 173 BSA: 2.14 Weight(Kg): 95.3 Quality: Adequate Order Provider: DEE LIN Procedures: Echocardiographic Report: Transthoracic echocardiogram with complete 2D, M-Mode, and color Doppler examination. Indications: Shortness of Breath; prolonged covid and oxygen. Measurements: 2D/MMode Doppler Measurement Value Normal Range Measurement Value Normal Range EF Teich MM 54.9 [ 55.0 - 70.0 ] percent ORAL Vmax 2.24 [ 2.00 - 4.00 ] cm2 LVIDd MM 4.96 [ 4.20 - 5.90 ] cm AV Mean PG 4 [ 2 - 4 ] mmHg LVIDs MM 3.54 [ 2.30 - 3.90 ] cm AV Peak Christiano 1.41 [ 1.00 - 1.70 ] m/s LVPWd MM 1.11 [ 0.60 - 1.00 ] cm AV VTI 22.67 cm IVSd MM 0.98 [ 0.60 - 0.90 ] cm LVOT Diam 2.32 [ 1.70 - 2.10 ] cm LA Dimension 2D 2.34 [ 3.00 - 4.00 ] cm LVOT Peak Christiano 0.74 [ 0.70 - 1.10 ] m/s AoR Diam MM 4.30 [ 2.60 - 3.70 ] cm LVOT VTI 12.65 [ 20.00 - 30.00 ] cm ACS MM 1.72 [ 1.50 - 2.60 ] cm MV E Peak Christiano 0.71[ 0.60 - 1.30 ] m/s MV A Peak Christiano 0.86 [ 1.00 - 1.20 ] m/s MV Mean PG 1 [ <= 5 ] mmHg MV PHT 40 [ 20 - 100 ] msec MVA 5.50 MV Decel Time 137 [ 104 - 258 ] msec PV Peak Christiano 1.10 [ 0.40 - 0.80 ] m/s TR Peak Christiano 2.07 [ 1.00 - 2.80 ] m/s TR Peak PG 17 mmHg RVSP 27.00 [ 10.00 - 36.00 ] mmHg E' 0.06 E/E' 12.79 PA Pressure 17.00 [ 10.00 - 36.00 ] mmHg Findings: Atrial Septum: The atrial septum isnot well visualized. Left Ventricle: Mild concentric left ventricular hypertrophy. Normal global left ventricular systolic function. Diastolic dysfunction is present. Ejection fraction is visually estimated at 60 to 65 %. Left Atrium: The left atrium is normal in size. Right Ventricle: Normal rightventricular size. Right Atrium: The right atrium is normal in size. Aortic Valve: Normal structure of the aortic valve. Mitral Valve: Normal structure of the mitral valve. Trivial regurgitation of the mitral valve. Pulmonic Valve: Pulmonic valve not well visualized. Trivial regurgitation in the pulmonic valve. Tricuspid Valve: Normal structure of the tricuspid valve. Trivial regurgitation in the tricuspid valve. Pericardium: There is an anterior echo free space consistent with epicardial fat pad. Aorta: Normal aortic root. IVC: The IVC is not well visualized. Conclusions: Mild concentric leftventricular hypertrophy. Normal global left ventricular systolic function. Diastolic dysfunction is present. Ejection fraction is visually estimated at 60 to 65 %. Normal structure of the mitral valve. Trivial regurgitation of the mitral valve. Normal structure of the aortic valve. Normal structureof the tricuspid valve. Trivial regurgitation in the tricuspid valve. Electronically Signed By: Dr Vicente Musa 2021-03-03 15:44:[address] Chest PE (CTA) W Contrast Result Date: 03/02/2021 Narrative: EXAM DESCRIPTION: CT CHEST PE (CTA) W CONTRAST REASON FOR STUDY: PE suspected, intermediate prob, positive D-dimer Cough, SOB, and weakness ongoing for 16 days has increased today. Pt tested positive for covid 16 days ago. Hx of appendectomy, and heart attack. TECHNIQUE: CT angiogram of the chest performed with intravenous contrast using helical scanning technique with dynamic intravenous contrast injection. Reconstructed coronal and sagittal MPR images reviewed. All images stored onPACS. 3D MIP images rendered on scanning unit and reviewed at time of interpretation. Automated exposure control was used as a dose optimization technique for this examination. CONTRAST TYPE/DOSE: 100mL of IOVERSOL 350 MG IODINE/ML INTRAVENOUS SOLUTION injected via intravenous COMPARISON: None FINDINGS: VASCULATURE: No identified pulmonary emboli. LUNGS: There are multifocal, patchy ground-glass infiltrates involving the upper and lower lobes bilaterally characteristic of bilateral pneumonia and consistent with the patient's diagnosis of COVID-19 infection. PLEURA: No effusion. No pneumothorax. MEDIASTINUM/NII: No identified masses or abnormal nodes. HEART: Heart size is normal with no pericardial effusion. Coronary artery calcification. Recommend clinical correlation for coronary arterydisease. AXILLA: No adenopathy. CHEST WALL: No masses. No subcutaneous air. HARDWARE/LINES/TUBES: None. UPPER ABDOMEN: No significant abnormality. MUSCULOSKELETAL: No significant abnormality. OTHER: No significant abnormality. IMPRESSION: 1. No CT evidence for pulmonary embolus. 2. Multifocal, patchy ground-glass infiltrates involving the upper and lower lobes bilaterally characteristic of bilateral pneumonia and consistent with the patient's diagnosis of COVID-19 infection. 3. Coronary artery calcification. Recommend clinical correlation for coronary artery disease. THIS IS AN ELECTRONICALLY VERIFIED FINAL REPORT 03/02/2021 7:55 PM - Electronically signed by Seb Leach M.D. KT: KIN Report ID: [id number] Reading Location: [id number] Current Facility-Administered Medications Medication Dose Route Frequency Provider Last Rate Last Admin ??? acetaminophen (TYLENOL) tablet 650 mg 650 mg oral Q4H PRN Dee Lin MD 650 mg at 03/02/21 2630 ??? albuterol HFA (PROVENTIL HFA,VENTOLIN HFA,PROAIR HFA) 90 mcg/actuation inhaler 2 puff 2 puff inhalation Q6H PRN (RT) Oscar, Karely, MD ??? albuterol HFA (PROVENTIL HFA,VENTOLIN HFA,PROAIR HFA) 90 mcg/actuation inhaler 2 puff 2 puff inhalation Q4H While awake (RT) Cleopatra Lobo MD ??? amLODIPine (NORVASC) tablet 10 mg 10 mg oral Daily Cleopatra Lobo MD 10 mg at 03/03/211858 ??? aspirin tablet 325 mg 325 mg oral Daily Cleopatra Lobo MD 325 mg at 03/03/211858 ??? atorvastatin (LIPITOR) tablet 10 mg 10 mg oral Daily Cleopatra Lobo MD ??? azithromycin (ZITHROMAX) tablet 500 mg 500 mg oral Daily Dee Lin MD 500 mg at 03/03/21925 ??? cefTRIAXone (ROCEPHIN) 1,000 mg/10 mL in sterile water (premix) 1,000 mg 1,000 mg intravenous Q24H BRIAN Dee Lin MD 1,000 mg at 03/03/21925 ??? dexAMETHasone (DECADRON) injection solution 6 mg 6 mg intravenous Q24H Dee Lin MD ??? enoxaparin (LOVENOX) syringe 40 mg 40 mg subcutaneous Daily-2099 Dee Lin MD 40 mg at 03/02/212345 ??? metoprolol XL (TOPROL-XL) extended release tablet 100 mg 100 mg oral Daily Cleopatra Lobo MD 100 mg at 03/03/211858 ??? oxyCODONE (ROXICODONE) tablet 5 mg 5 mg oral Q4H PRN Dee Lin MD ??? sodium chloride (OCEAN) 0.65 % nasal spray 1 spray 1 spray each nostril Q2H PRN Karely Moore MD 1 spray at 03/03/21 0015 A/P Principal Problem: Pneumonia due to COVID-19 virus Active Problems: Cough Cervical radiculopathy Hyperlipidemia Obstructive sleep apnea syndrome in adult Benign essential HTN Resolved Problems: No resolved hospital problems. Acute hypoxic Respiratory Failure 2/2 COVID PNA Plan: Supplemental oxygen prn, currently on 3 L Sat 97% IV Decadron daily Ceftriaxone and Azithromycin for empiric coverage of superimposed bacterial infection Follow up procal, can discontinue Abx if negative Supportive management: albuterol q4h an Tylenol for pain Hypertension Hyperlipidema Currently normotensive Continue with statins Cont with home dose metoprolol and amlodipine Cervical radiculopathy Tylenol for pain Obstructive sleep apnea Not on CPAP Continuous saturation monitor DVT prophylaxis: lovenox Code status: full Anticipated length of stay to be 2-3 days MDM moderate ( time spent 25 minutes) Cleopatra Lobo MD Date of Service: 03/03/2021 documented in this encounter ED Notes * Dee Lin MD - 03/02/2021 1:55 PM CDTAssociated Order(s): ECG 12 lead Chief Complaint Patient presents with ??? Shortness of Breath ??? Cough ??? Weakness - Generalized HPI 03/02/2021 1:56 PM Sean Teresa is a 60 y.o. male nonsmoker with a h/o CAD, HTN, HLD, and LUIS F who presents to the EDwith SOB since 02/15/21, with positive home COVID-19 test on 02/18/21. Associated symptoms include cough, headache, and generalized weakness. No exacerbating or alleviating factors. Patient states thathe recently finished a course of Decadron, without relief of symptoms. He denies leg pain or swellin g. No other complaints at this time. Per chart review: Patient presented to this ED on 02/25/21 c/o vomiting, after positive home COVID-19test. Chest X-ray: mild scattered patchy airspace opacities throughout both lungs, compatible with multifocal pneumonia. Unremarkable troponins, BNP, CBC, CMP, PT-INR. Discharged on Decadron and Zofra n. Past Medical History: Diagnosis Date ??? Arthritis ??? Gout ??? Headache ??? Old myocardial infarction History of non-ST elevation myocardial infarction (NSTEMI) - (Added by TW Conv) Past Surgical History: Procedure Laterality Date ??? BACK SURGERY ??? [place] APPENDECTOMY Appendectomy - (Added by TW Conv) [...] Systems Review of Systems Constitutional: Negative for chills and fever. HENT: Negative for ear pain and sore throat. Eyes: Negative for pain and visual disturbance. Respiratory: Positive for cough and shortness of breath. Cardiovascular: Negative for chest pain, palpitations and leg swelling. Gastrointestinal: Negative for abdominal pain and vomiting. Genitourinary: Negative for dysuria and hematuria. Musculoskeletal: Negative for leg pain. Skin: Negative for color change and rash. Neurological: Positive for weakness (generalized) and headaches. Negative for seizures and syncope. All other systems reviewed and are negative. Physical Exam ED Triage Vitals [03/02/21 1339] Temp Pulse Resp BP SpO2 36.6 ??C (97.9 ??F) 80 24 119/82 90 % Temp src Heart Rate Source Patient Position BP Location FiO2 (%) Temporal -- -- -- -- Physical Exam Vitals and nursing note reviewed. Constitutional: Comments: Well-appearing, pleasant male in no acute distress. HENT: Head: Normocephalic and atraumatic. Comments: Face symmetrical. Mouth/Throat: Mouth: Mucous membranes are moist. Comments: Speech clear and fluent. Eyes: Extraocular Movements: Extraocular movements intact. Conjunctiva/sclera: Conjunctivae normal. Cardiovascular: Rate and Rhythm: Normal rate and regular rhythm. Pulses: Normal pulses. Heart sounds: Normal heart sounds. Pulmonary: Comments: Markedly poor expansion and contraction of chest. No abnormal breath sounds. Abdominal: Palpations: Abdomen is soft. Tenderness: There is no abdominal tenderness. There is no guarding or rebound. Comments: No referral. Musculoskeletal: Cervical back: Neck supple. Comments: No peripheral edema. No calf tenderness. Skin: General: Skin is warm and dry. Neurological: General: No focal deficit present. Mental Status: He is alert and oriented to person, place, and time. ECG 12 lead Date/Time: 03/02/2021 2:16 PM Performed by: Dee Lin MD Authorized by: Dee Lin MD Rate: ECG rate: 88 ECG rate assessment: normal Rhythm: Rhythm: sinus rhythm QRS: QRS axis: Right Conduction: Conduction: abnormal Abnormal conduction: incomplete RBBB Other findings: Other findings: poor R wave progression Comments: COPD pattern. Labs Reviewed CBC WITH AUTO DIFFERENTIAL - Abnormal Result Value WBC 14.5 (*) Hgb 14.1 Hct 43.1 Plt 459 (*) MPV 8.5 (*) RBC 4.70 MCV 91.7 MCH 30.0 MCHC 32.7 RDW CV 12.3 RDW SD 41.0 NRBC abs 0.02 (*) D-DIMER, QUANTITATIVE - Abnormal D-Dimer 2,444 (*) CRP (ACUTE PHASE) - Abnormal CRP 24.2 (*) COMPREHENSIVE METABOLIC PANEL - Abnormal Sodium 138 Potassium, pl 4.0 Chloride 105 CO2 21 (*) Anion gap 12 BUN 29 (*) Creatinine 0.75 (*) Glucose 157 Calcium 8.7 Bilirubin, total 0.6 Protein, pl 6.7 Albumin 3.4 (*) Alk phos 99 ALT 108 (*) AST 52 (*) BLOOD GAS, ARTERIAL - Abnormal pH, Art 7.51 (*) PCO2, Arterial 27 (*) PO2, Arterial 117 (*) HCO3 Art (Calculated) 21 BE, art 0 O2 Sat Art (Measured) 99 (*) DIFFERENTIAL AUTO - Abnormal Neutrophil abs 11.5 (*) Imm gran abs 0.3 (*) Lymphocyte abs 1.6 Monocyte abs 1.0 (*) Eosinophil abs 0.0 Basophil abs 0.0 Neutrophil pct 79.5 Imm gran pct 1.9 Lymphocyte pct 11.1 Monocyte pct 6.9 Eosinophil pct 0.3 Basophil pct 0.3 BLOOD CULTURE BLOOD CULTURE PRO B-TYPE NATRIURETIC PEPTIDE NT-proBNP 159 SEPSIS LACTATE WITH REFLEX Sepsis Lactate 1.7 EGFR eGFR [address] Abdomen Pelvis W Contrast Final Result CT Chest PE (CTA) W Contrast Final Result XR Chest 1 Vw Portable Final Result BP 148/88 Pulse 95 Temp 36.6 ??C (97.9 ??F) (Temporal) Resp 24 Ht 172.7 cm (5' 8 ) Wt 95.3 kg (210 lb) SpO2 92% BMI 31.93 kg/m?? [facility] ED Course as of Mar 02 2212 Time: 03/02 175 Comment: Rechecked patient. He reports feeling hungry. Discussed lab and radiology findings. Discussed plan for admission and patient agrees with the plan. All questions addressed at this time. By: Sarah Zimmerman Time: 03/02 1844 Comment: Discussed case with Dr. Robledo, Hospitalist. Waiting for CT results. By: Sarah Zimmerman Time: 03/02 2040 Comment: Discussed case with Dr. Moore, Hospitalist, who accepts the patient for admission. By: Sarah Zimmerman Time: 03/02 2155 Comment: Updated Pt and , extensive discussion covid and SOB. By: Dee Lin MD Final diagnoses: Pneumonia due to COVID-19 virus Leukemoid reaction Hypoxia This note is prepared by Sarah Zimmerman, acting as a scribe for Dee Lin MD. I electronically signed this note at 10:12 PM on 03/02/2021. I, Dee Lin MD, have personally performed the services described in the documentation, reviewed the documentation, as recorded by the scribe in my presence, and it accurately and completelyrecords my words and actions. Sarah Zimmerman 03/02/21 1420 Dee Lin MD 03/02/212124 Dee Lin MD 03/02/212211 * Nai Mathews RN - 03/02/2021 1:37 PM CDT Pt presents to the ED from home with c/o cough, SOB, [place], weakness. Pt was seen here Wednesday and diagnosed with covid pneumonia and d/c home. Per pts he finished his steroids and still not feeling any better. Symptoms started 16 days ago. documented in this encounter Miscellaneous Notes * Plan of Care - Kathia Leblanc RN - 03/06/2021 3:03 AM CDT Goals: Clinical Goals for the Shift: vss. maintain respiratory status. free from falls or injury Summary: VSS. A&O x4. Up ad eli. Free from falls or injury. Remains on room air with oxygen sats > 93%. SR on the monitor. Medicated per orders. PRN tylenol given x1 for headache. Will cont with monitoring and plan of care. * Plan of Care - Zehra Thompson RN - 03/05/2021 3:05 AM CDT Problem: Lack of Knowledge: Goal: Understanding of ways to prevent future skin breakdown will improve Outcome: Progressing Goal: Ability to identify appropriate dietary choices will improve Outcome: Progressing Goals: Clinical Goals for the Shift: improved respiratory status, vss. no falls or injuries. Summary: Pt in bed resting. No c/o pain or nausea. No anxiety noted. Vss. Skin w/d. Up with steady gait. Pt remains on room air. Possible d/c home today. Will cont. With plan of care. * Plan of Care - Jolene Randolph RN - 03/04/2021 6:16 PM CDT Goals: Clinical Goals for the Shift: Remain free from falls and injury. VSS. Give meds as ordered. Pt willremain on room air. Respiratory status will continue to improve. Summary: Pt has remained free from falls and injury throughout this shift. Meds given as ordered. Pt has remained on room air since this am. Pt took prn nausea meds x1 this afternoon, and a prn pain med x1 this afternoon. Continue to assess. * Plan of Care - Heidi Jameson RRT - 03/04/2021 5:35 PM CDT Pt weaned to RA today, Q6 nebs, BS are clear/diminished RT will continue with current treatment plan * Plan of Care - Zehra Thompson RN - 03/04/2021 4:08 AM CDT Problem: Lack of Knowledge: Goal: Understanding of ways to prevent future skin breakdown will improve Outcome: Progressing Goal: Ability to identify appropriate dietary choices will improve Outcome: Progressing Goals: Clinical Goals for the Shift: improved respiratory status, vss. no falls or injuries. Summary: Pt in bed resting. No c/o pain or nausea. No anxiety noted. Vss. Skin w/d. Up with steady gait. Pt remains on 02 at 3lpm nc. Will cont. With plan of care. * Plan of Care - Geri Chase RRT - 03/04/2021 2:21 AM CDT Pt on 3 LPM O2 therapy, Q6 nebs, bilateral clear diminished BS, no distress. * Plan of Care - Tamera Armendariz RN - 03/03/2021 2:56 PM CDT Problem: Health Behavior: Goal: Understanding of discharge needs will improve Outcome: Progressing Problem: Activity: Goal: Mobility will improve Outcome: Progressing Problem: Lack of Knowledge: Goal: Understanding of ways to prevent future skin breakdown will improve Outcome: Progressing Goal: Ability to identify appropriate dietary choices will improve Outcome: Progressing Problem: Nutritional: Goal: Dietary intake will improve Outcome: Progressing Goal: Ability to maintain a balanced intake and output will improve Outcome: Progressing Problem: Skin Integrity: Goal: Risk for impaired skin integrity will decrease Outcome: Progressing Goal: Ability to demonstrate warm and dry skin will improve Outcome: Progressing Goal: Circulation will improve to fullest extent possible Outcome: Progressing Goals: Clinical Goals for the Shift: Titrate O2 to keep sats above 90%. Vitals and labs stable. No falls or injuries. Summary: Pt's oxygen titrated to 3l/nc with O2 sats at 93%. Vitals stable. Pt showered this afternoon and tolerated activity without any respiratory distress. Up sitting in chair. No complaints of pain voiced. * Plan of Care - Ruben Lea RN - 03/03/2021 4:01 AM CDT Problem: Health Behavior: Goal: Understanding of discharge needs will improve Outcome: Progressing Problem: Activity: Goal: Mobility will improve Outcome: Progressing Problem: Lack of Knowledge: Goal: Understanding of ways to prevent future skin breakdown will improve Outcome: Progressing Goal: Ability to identify appropriate dietary choices will improve Outcome: Progressing Problem: Nutritional: Goal: Dietary intake will improve Outcome: Progressing Goal: Ability to maintain a balanced intake and output will improve Outcome: Progressing Goals: Summary: Pt rested moderately well during shift. Voided per bathroom without difficulty. Pt remainssafe and free from falls. VSS. Remains afebrile for shift. Breathing remains even, regular and unlabored. O2 Up to 5L to maintain 93-94% O2 sats. Will continue to monitor respiratory status and make interventions as needed. Continue antibiotics as ordered. documented in this encounter Plan of Treatment Scheduled Procedures Name Priority Associated Diagnoses Date/Ti me COLONOSCOPY Colon cancer screening COLONOSCOPY Colon cancer screening documented as of this encounter Procedures Procedure Name Priority Date/Time Associated Diagnosis Comments EGFR Routine 03/06/2021 5:44 AM CDT DIFFERENTIAL AUTO Routine 03/06/2021 5:4 4 AM CDT CBC WITH AUTO DIFFERENTIAL Routine 03/06/2021 5:44 AM CDT PHOSPHORUS Routine 03/06/2021 5:44 AM CDT MAGNESIUM Routine 03/06/2021 5:44 AM CDT BASIC METABOLIC PANEL Routine 03/06/2021 5:44 AM CDT EGFR Routine 03/05/2021 5:27 AM CDT DIFFERENTIAL AUTO Routine 03/05/2021 5:2 7 AM CDT CBC WITH AUTO DIFFERENTIAL Routine 03/05/2021 5:27 AM CDT PHOSPHORUS Routine 03/05/2021 5:27 AM CDT MAGNESIUM Routine 03/05/2021 5:27 AM CDT BASIC METABOLIC PANEL Routine 03/05/2021 5:27 AM CDT EGFR Routine 03/04/2021 5:02 AM CDT DIFFERENTIAL AUTO Routine 03/04/2021 5:0 2 AM CDT CBC WITH AUTO DIFFERENTIAL Routine 03/04/2021 5:02 AM CDT PHOSPHORUS Routine 03/04/2021 5:02 AM CDT MAGNESIUM Routine 03/04/2021 5:02 AM CDT BASIC METABOLIC PANEL Routine 03/04/2021 5:02 AM CDT TRANSTHORACIC ECHO (TTE) COMPLETE W DOPPLER/CF WO CONTRAST ED 03/03/2021 2:36 PM CDT PROCALCITONIN Routine 03/02/2021 9:25 PM CDT BLOOD CULTURE STAT 03/02/2021 8:[address] CHEST PE W CONTRAST ED 7:[address] ABDOMEN PELVIS W CONTRAST ED 03/02/2021 7:20 PM CDT EGFR STAT 03/02/2021 2:29 PM CDT DIFFERENTIAL AUTO STAT 03/02/2021 2:2 9 PM CDT PRO B-TYPE NATRIURETIC PEPTIDE STAT 03/02/2021 2:29 PM CDT CBC WITH AUTO DIFFERENTIAL STAT 03/02/2021 2:29 PM CDT BLOOD CULTURE STAT 03/02/2021 2:29 PM CDT D-DIMER, QUANTITATIVE STAT 03/02/2021 2:29 PM CDT CRP (ACUTE PHASE) STAT 03/02/2021 2:2 9 PM CDT COMPREHENSIVE METABOLIC PANEL STAT 03/02/2021 2:29 PM CDT ECG 12-LEAD Routine 03/02/2021 2:16 PM CDT XR CHEST 1 VIEW ED 03/02/2021 2:07 PM CDT SEPSIS LACTATE WITH REFLEX Routine 03/02/2021 1:53 PM CDT BLOOD GAS, ARTERIAL STAT 03/02/2021 1 :53 PM CDT documented in this encounter Results * eGFR (03/06/2021 5:44 AM CDT) Pathologist [facility] [place] eGFR 97 mL/min/1.7 3 m2 [facility] [...] interpretive data was last reviewed 2020 Blood 03/06/2021 5:44 AM CDT 03/06/2021 6:04 AM CDT us Cleopatra Lobo MD LAB BLOOD ORDERABLES Final Res ult [facility] ([place]) 1 [facility] Department [place] [address] * (ABNORMAL) Differential, auto (03/06/2021 5:44 AM CDT) Neutrophil abs 8.1(H) 1.7 - 6.5 K/cumm [facility] ([place]) Imm gran abs 0.2(H) 0.0 - 0.1 K/cumm [facility] ([place]) Lymphocyte abs 0.9 0.8 - 3.3 K/cumm [facility] ([place]) Monocyte abs 0.2 0.2 - 0.8 K/cumm [facility] ([place]) Eosinophil abs 0.0 0.0 - 0.5 K/cumm [facility] ([place]) Basophil abs 0.0 0.0 - 0.1 K/cumm [facility] ([place]) Neutrophil pct 86.7 % [facility] ([place]) Comment: Interpretive Data Percent cell count reference ranges are not reported, since discordance with absolute values may lead to misinterpretation of CBC data. Current Interpretive Data was last revised on 2017. Imm gran pct 1.6 % [facility] ([place]) Comment: Interpretive Data Percent cell count reference ranges are not reported, since discordance with absolute values may lead to misinterpretation of CBC data. Current Interpretive Data was last revised on 2017. Lymphocyte pct 9.2 % [facility] ([place]) Comment: Interpretive Data Percent cell count reference ranges are not reported, since discordance with absolute values may lead to misinterpretation of CBC data. Current Interpretive Data was last revised on 2017. Monocyte pct 2.3 % [facility] ([place]) Comment: Interpretive Data [...] was last revised on 2017. Basophil pct 0.2 % [facility] ([place]) Comment: Interpretive Data Percent cell count reference ranges are not reported, since discordance with absolute values may lead to misinterpretation of CBC data. Current Interpretive Data was last revised on 2017. Blood 03/06/2021 5:44 AM CDT 03/06/2021 6:04 AM CDT Cleopatra Lobo MD LAB BLOOD ORDERABLES Final Res ult [facility] ([place]) 1 [facility] [address] * Phosphorus (03/06/2021 5:44 AM CDT) Phosphorus, pl 4.5 2.3 - 4.5 mg/dL [facility] ([place]) Blood 03/06/2021 5:44 AM CDT 03/06/2021 6:04 AM CDT Cleopatra Lobo MD LAB BLOOD ORDERABLES Final Res ult Performing Organization Address [facility] Co de Phone Number [facility] ([place]) 1 [facility] [place] [address] * Magnesium (03/06/2021 5:44 AM CDT) Magnesium 2.3 1.4 - 2.5 mg/dL [facility] ([place]) Blood 03/06/2021 5:44 AM CDT 03/06/2021 6:04 AM CDT Cleopatra Lobo MD LAB BLOOD ORDERABLES Final Res ult Performing Organization Address City/[facility] Co de Phone Number [facility] ([place]) 1 [facility] [address] * (ABNORMAL) Basic metabolic panel (03/06/2021 5:44 AM CDT) Sodium 139 135 - 145 mmol/L [facility] ([place]) Potassium, pl 4.3 3.3 - 4.9 mmol/L [facility] ([place]) Chloride 106 97 - 110 mmol/L [facility] ([place]) CO2 22 22 - 32 mmol/L [facility] ([place]) Anion gap 11 2 - 15 mmol/L [facility] ([place]) BUN 26(H) 8 - 25 mg/dL [facility] ([place]) Creatinine 0.78(L) 0.80 - 1.30 mg/dL [facility] ([place]) Glucose 176 70 - 199 mg/dL [facility] ([place]) [...] interpretive data was last revised 2017. Calcium 9.0 8.5 - 10.3 mg/dL [facility] ([place]) Blood 03/06/2021 5:44 AM CDT 03/06/2021 6:04 AM CDT us Cleopatra Lobo MD LAB BLOOD ORDERABLES Final Res [facility] 1 [facility] Department [place] [address] * (ABNORMAL) CBC with auto differential (03/06/2021 5:44 AM CDT) WBC 9.3 3.8 - 9.9 K/cumm [facility] ([place]) Hgb 13.1 13.0 - 17.5 g/dL [facility] ([place]) Hct 39.8 38.9 - 50.3 % [facility] ([place]) Plt 460(H) 150 - 400 K/cumm [facility] ([place]) MPV 8.7(L) 9.1 - 12.3 fL [facility] ([place]) RBC 4.39 4.30 - 5.80 M/cumm [facility] ([place]) MCV 90.7 81.3 - 96.4 fL [facility] ([place]) MCH 29.8 27.1 - 33.3 pg [facility] ([place]) MCHC 32.9 32.3 - 35.7 g/dL [facility] ([place]) RDW CV 12.2 11.1 - 14.9 % [facility] ([place]) RDW SD 40.4 35.7 - 48.1 fL [facility] ([place]) NRBC abs 0.00 0.00 - 0.01 K/cumm [facility] ([place]) Blood 03/06/2021 5:44 AM CDT 03/06/2021 6:04 AM CDT us Cleopatra Lobo MD LAB BLOOD ORDERABLES Final Res ult [facility] ([place]) 1 [facility] Department [place] [address] * eGFR (03/05/2021 5:27 AM CDT) eGFR 98 mL/min/1.7 3 m2 [facility] ([place]) Comment: Interpretive Data Reference Interval Normal [...] interpretive data was last reviewed 2020 Blood 03/05/2021 5:27 AM CDT 03/05/2021 5:37 AM CDT us Cleopatra Lobo MD LAB BLOOD ORDERABLES Final Res ult [facility] ([place]) 1 [facility] Department [place] [address] * (ABNORMAL) Differential, auto (03/05/2021 5:27 AM CDT) Neutrophil abs 8.4(H) 1.7 - 6.5 K/cumm [facility] ([place]) Imm gran abs 0.1 0.0 - 0.1 K/cumm [facility] ([place]) Lymphocyte abs 0.9 0.8 - 3.3 K/cumm [facility] ([place]) Monocyte abs 0.2 0.2 - 0.8 K/cumm [facility] ([place]) Eosinophil abs 0.0 0.0 - 0.5 K/cumm [facility] ([place]) Basophil abs 0.0 0.0 - 0.1 K/cumm [facility] ([place]) Neutrophil pct 87.3 % [facility] ([place]) Comment: Interpretive Data Percent cell count reference ranges are not reported, since discordance with absolute values may lead to misinterpretation of CBC data. Current Interpretive Data was last revised on 2017. Imm gran pct 1.4 % [facility] ([place]) Comment: Interpretive Data Percent cell count reference ranges are not reported, since discordance with absolute values may lead to misinterpretation of CBC data. Current Interpretive Data was last revised on 2017. Lymphocyte pct 9.2 % [facility] ([place]) Comment: Interpretive Data Percent cell count reference ranges are not reported, since discordance with absolute values may lead to misinterpretation of CBC data. Current Interpretive Data was last revised on 2017. Monocyte pct 1.9 % [facility] ([place]) Comment: Interpretive Data [...] was last revised on 2017. Basophil pct 0.2 % [facility] ([place]) Comment: Interpretive Data Percent cell count reference ranges are not reported, since discordance with absolute values may lead to misinterpretation of CBC data. Current Interpretive Data was last revised on 2017. Blood 03/05/2021 5:27 AM CDT 03/05/2021 5:37 AM CDT Cleopatra Lobo MD LAB BLOOD ORDERABLES Final Res ult [facility] ([place]) 1 [facility] [place] [address] * Phosphorus (03/05/2021 5:27 AM CDT) Phosphorus, pl 3.6 2.3 - 4.5 mg/dL [facility] ([place]) Blood 03/05/2021 5:27 AM CDT 03/05/2021 5:37 AM CDT Cleopatra Lobo MD LAB BLOOD ORDERABLES Final Res ult [facility] ([place]) 1 [facility] [place] [address] * Magnesium (03/05/2021 5:27 AM CDT) Magnesium 2.5 1.4 - 2.5 mg/dL [facility] ([place]) Blood 03/05/2021 5:27 AM CDT 03/05/2021 5:37 AM CDT us Cleopatra Lobo MD LAB BLOOD ORDERABLES Final Res ult Performing Organization Address City/[facility]/ZIP Co de Phone Number [facility] ([place]) 1 [facility] Department [place] [address] * (ABNORMAL) Basic metabolic panel (03/05/2021 5:27 AM CDT) Sodium 139 135 - 145 mmol/L [facility] ([place]) Potassium, pl 4.5 3.3 - 4.9 mmol/L [facility] ([place]) Chloride 105 97 - 110 mmol/L [facility] ([place]) CO2 22 22 - 32 mmol/L [facility] ([place]) Anion gap 12 2 - 15 mmol/L [facility] ([place]) BUN 20 8 - 25 mg/dL [facility] ([place]) Creatinine 0.77(L) 0.80 - 1.30 mg/dL [facility] ([place]) Glucose 176 70 - 199 mg/dL [facility] ([place]) [...] interpretive data was last revised 2017. Calcium 9.1 8.5 - 10.3 mg/dL [facility] ([place]) Blood 03/05/2021 5:27 AM CDT 03/05/2021 5:37 AM CDT Cleopatra Lobo MD LAB BLOOD ORDERABLES Final Res ult [facility] ([place]) 1 [facility] Department [place] [address] * (ABNORMAL) CBC with auto differential (03/05/2021 5:27 AM CDT) Pathologist [facility] [place] WBC 9.6 3.8 - 9.9 K/cumm [facility] ([place]) Hgb 13.0 13.0 - 17.5 g/dL [facility] ([place]) Hct 40.2 38.9 - 50.3 % [facility] ([place]) Plt 425(H) 150 - 400 K/cumm [facility] ([place]) MPV 8.4(L) 9.1 - 12.3 fL [facility] ([place]) RBC 4.29(L) 4.30 - 5.80 M/cumm [facility] ([place]) MCV 93.7 81.3 - 96.4 fL [facility] ([place]) MCH 30.3 27.1 - 33.3 pg [facility] ([place]) MCHC 32.3 32.3 - 35.7 g/dL [facility] ([place]) RDW CV 12.3 11.1 - 14.9 % [facility] ([place]) RDW SD 42.4 35.7 - 48.1 fL [facility] ([place]) NRBC abs 0.00 0.00 - 0.01 K/cumm [facility] ([place]) Blood 03/05/2021 5:27 AM CDT 03/05/2021 5:37 AM CDT us Cleopatra Lobo MD LAB BLOOD ORDERABLES Final Res ult [facility] ([place]) 1 [facility] Department [place] [address] * eGFR (03/04/2021 5:02 AM CDT) Pathologist [facility] [place] eGFR 99 mL/min/1.7 3 m2 [facility] ([place]) Comment: Interpretive Data Reference Interval Normal [...] interpretive data was last reviewed 2020 Blood 03/04/2021 5:02 AM CDT 03/04/2021 5:22 AM CDT us Cleopatra Lobo MD LAB BLOOD ORDERABLES Final Res ult [facility] ([place]) 1 [facility] Department [place] [address] * (ABNORMAL) Differential, auto (03/04/2021 5:02 AM CDT) Neutrophil abs 7.4(H) 1.7 - 6.5 K/cumm [facility] ([place]) Imm gran abs 0.2(H) 0.0 - 0.1 K/cumm [facility] ([place]) Lymphocyte abs 0.8 0.8 - 3.3 K/cumm [facility] ([place]) Monocyte abs 0.2 0.2 - 0.8 K/cumm [facility] ([place]) Eosinophil abs 0.0 0.0 - 0.5 K/cumm [facility] ([place]) Basophil abs 0.0 0.0 - 0.1 K/cumm [facility] ([place]) Neutrophil pct 86.7 % [facility] ([place]) Comment: Interpretive Data Percent cell count reference ranges are not reported, since discordance with absolute values may lead to misinterpretation of CBC data. Current Interpretive Data was last revised on 2017. Imm gran pct 1.9 % [facility] ([place]) Comment: Interpretive Data Percent cell count reference ranges are not reported, since discordance with absolute values may lead to misinterpretation of CBC data. Current Interpretive Data was last revised on 2017. Lymphocyte pct 8.7 % [facility] ([place]) Comment: Interpretive Data Percent cell count reference ranges are not reported, since discordance with absolute values may lead to misinterpretation of CBC data. Current Interpretive Data was last revised on 2017. Monocyte pct 2.4 % [facility] ([place]) Comment: Interpretive Data [...] Data was last revised on 2017. Blood 03/04/2021 5:02 AM CDT 03/04/2021 5:22 AM CDT us Cleopatra Lobo MD LAB BLOOD ORDERABLES Final Res ult [facility] ([place]) 1 [facility] Department [place] [address] * Phosphorus (03/04/2021 5:02 AM CDT) Phosphorus, pl 3.8 2.3 - 4.5 mg/dL [facility] ([place]) Blood 03/04/2021 5:02 AM CDT 03/04/2021 5:22 AM CDT Cleopatra Lobo MD LAB BLOOD ORDERABLES Final Res ult [facility] ([place]) 1 [facility] [place] [address] * Magnesium (03/04/2021 5:02 AM CDT) Magnesium 2.5 1.4 - 2.5 mg/dL [facility] ([place]) Blood 03/04/2021 5:02 AM CDT 03/04/2021 5:22 AM CDT Cleopatra Lobo MD LAB BLOOD ORDERABLES Final Res ult Performing Organization Address City/[facility]/ZIP Co de Phone Number [facility] ([place]) 1 [facility] [place] [address] * (ABNORMAL) Basic metabolic panel (03/04/2021 5:02 AM CDT) Sodium 138 135 - 145 mmol/L [facility] ([place] Potassium, pl 4.7 3.3 - 4.9 mmol/L [facility] Chloride 104 97 - 110 mmol/L [facility] ([place]) CO2 21(L) 22 - 32 mmol/L [facility] ([place]) Anion gap 13 2 - 15 mmol/L [facility] ([place] BUN 21 8 - 25 mg/dL [facility] ([place] Creatinine 0.75(L) 0.80 - 1.30 mg/dL [facility] ([place]) Glucose 174 70 - 199 mg/dL [facility] ([place] Comment: Interpretive Data Fasting glucose [...] interpretive data was last revised 2017. Calcium 8.7 8.5 - 10.3 mg/dL [facility] ([place]) Blood 03/04/2021 5:02 AM CDT 03/04/2021 5:22 AM CDT us Cleopatra Lobo MD LAB BLOOD ORDERABLES Final Res ult [facility] ([place]) 1 [facility] Department [place] [address] * (ABNORMAL) CBC with auto differential (03/04/2021 5:02 AM CDT) WBC 8.6 3.8 - 9.9 K/cumm [facility] ([place]) Hgb 13.1 13.0 - 17.5 g/dL [facility] ([place]) Hct 39.7 38.9 - 50.3 % [facility] ([place]) Plt 422(H) 150 - 400 K/cumm [facility] ([place]) MPV 8.5(L) 9.1 - 12.3 fL [facility] ([place]) RBC 4.30 4.30 - 5.80 M/cumm [facility] ([place]) MCV 92.3 81.3 - 96.4 fL [facility] ([place]) MCH 30.5 27.1 - 33.3 pg [facility] ([place]) MCHC 33.0 32.3 - 35.7 g/dL [facility] ([place]) RDW CV 12.4 11.1 - 14.9 % [facility] ([place]) RDW SD 42.0 35.7 - 48.1 fL [facility] ([place]) NRBC abs 0.00 0.00 - 0.01 K/cumm [facility] ([place]) Blood 03/04/2021 5:02 AM CDT 03/04/2021 5:22 AM CDT us Cleopatra Lobo MD LAB BLOOD ORDERABLES Final Res ult [facility] [place]) 1 [facility] Department [place] [address] * TRANSTHORACIC ECHO (TTE) COMPLETE W DOPPLER/CF WO CONTRAST (03/03/2021 2:36 PM CDT) Anatomical Region Laterality Modality Ultrasound 03/03/2021 2:03 PM CDT Narrative 03/03/2021 3:[address] PM [address]T [address] [address] Echocardiogram Report Patient Name: SEAN TERESA G : 1961 Study Date: 03/03/2021 14:03:02 Gender: M Tech: Location: [id number] Ref.Provider: DEE LIN Height(Cm): 173 BSA: 2.14 Weight(Kg): 95.3 Quality: Adequate Order Provider: DEE LIN Procedures: Echocardiographic Report: Transthoracic echocardiogram with complete 2D, M-Mode, and color Doppler examination. Indications: Shortness of Breath; prolonged covid and oxygen. Measurements: 2D/M Mode ?Doppler ? Measurement ?Value ?Normal Range ? Measurement ?Value ?Normal Range ? EF Teich MM ?54.9 ? [ 55.0 - 70.0 ] percent ?ORAL Vmax ? 2.24 ? [ 2.00 - 4.00 ] cm2 ? LVIDd MM ? 4.96 ? [ 4.20 - 5.90 ] cm ? AV Mean PG ? 4 ?[ 2 - 4 ] mmHg ? LVIDs MM ? 3.54 ? [ 2.30 - 3.90 ] cm ? AV Peak Christiano ?1.41 ? [ 1.00 - 1.70 ] m/s ? LVPWd MM ? 1.11 ? [ 0.60 - 1.00 ] cm ? AV VTI ? 22.67 ?cm ? IVSd MM ?0.98 ? [ 0.60 - 0.90 ] cm ? LVOT Diam ?2.32 ? [ 1.70 - 2.10 ] cm ? LA Dimension 2D ?2.34 ? [ 3.00 - 4.00 ] cm ? LVOT Peak Christiano ?0.74 ? [ 0.70 - 1.10 ] m/s ? AoR Diam MM ?4.30 ? [ 2.60 - 3.70 ] cm ? LVOT VTI ? 12.65 ?[ 20.00 - 30.00 ] cm ? ACS MM ? 1.72 ? [ 1.50 - 2.60 ] cm ? MV E Peak Christiano ?0.71 ? [ 0.60 - 1.30 ] m/s ? MV A Peak Christiano ?0.86 ? [ 1.00 - 1.20 ] m/s ? MV Mean PG ? 1 ?[ <= 5 ] mmHg ? MV PHT ? 40 ? [ 20 - 100 ] msec ? MVA ?5.50 ? MV Decel Time ?137 ?[ 104 - 258 ] msec ? PV Peak Christiano ?1.10 ? [ 0.40 - 0.80 ] m/s ? TR Peak Christiano ?2.07 ? [ 1.00 - 2.80 ] m/s ? TR Peak PG ? 17 ? mmHg ? RVSP ? 27.00 ?[ 10.00 - 36.00 ] mmHg ? E' ? 0.06 ? E/E' ? 12.79 ? PA Pressure ?17.00 ?[ 10.00 - 36.00 ] mmHg ? Findings: Atrial Septum: The atrial septum is not well visualized. Left Ventricle: Mild concentric left ventricular hypertrophy. Normal global left ventricular systolic function. Diastolic dysfunction is present. Ejection fraction is visually estimated at 60 to 65 %. Left Atrium: The left atrium is normal in size. Right Ventricle: Normal right ventricular size. Right Atrium: The right atrium is normal in size. Aortic Valve: Normal structure of the aortic valve. Mitral Valve: Normal structure of the mitral valve. Trivial regurgitation of the mitral valve. Pulmonic Valve: Pulmonic valve not well visualized. Trivial regurgitation in the pulmonic valve. Tricuspid Valve: Normal structure of the tricuspid valve. Trivial regurgitation in the tricuspid valve. Pericardium: There is an anterior echo free space consistent with epicardial fat pad. Aorta: Normal aortic root. IVC: The IVC is not well visualized. Conclusions: Mild concentric left ventricular hypertrophy. Normal global left ventricular systolic function. Diastolic dysfunction is present. Ejection fraction is visually estimated at 60 to 65 %. Normal structure of the mitral valve. Trivial regurgitation of the mitral valve. Normal structure of the aortic valve. Normal structure of the tricuspid valve. Trivial regurgitation in the tricuspid valve. Electronically Signed By: Dr Vicente Musa 2021-03-03 15:44:03 CDT Procedure Note Vicente Musa MD - 03/03/[address] [place] [address] Echocardiogram Report Patient Name: SEAN TERESA GPatient ID: [id number] : [id number] Date: 03/03/2021 14:03:02 Gender: MAccession #: [id number] Tech: JCLocation: [id number] Ref.Provider: DEE LINHeight(Cm): 173 BSA: 2.14Weight(Kg): 95.3 Quality: AdequateOrder Provider: DEE LIN Procedures: Echocardiographic Report: Transthoracic echocardiogram with complete 2D, M-Mode, and color Dopplerexamination. Indications: Shortness of Breath; prolonged covid and oxygen. Measurements: 2D/M Mode Doppler Measurement Value Normal Range MeasurementValue Normal Range EF Teich MM 54.9 [ 55.0 - 70.0 ] percent ORAL Vmax2.24 [ 2.00 - 4.00 ] cm2 LVIDd MM 4.96 [ 4.20 - 5.90 ] cm AV Mean PG 4[ 2 - 4 ] mmHg LVIDs MM 3.54 [ 2.30 - 3.90 ] cm AV Peak Vel1.41 [ 1.00 - 1.70 ] m/s LVPWd MM 1.11 [ 0.60 - 1.00 ] cm AV VTI22.67 cm IVSd MM 0.98 [ 0.60 - 0.90 ] cm LVOT Diam2.32 [ 1.70 - 2.10 ] cm LA Dimension 2D 2.34 [ 3.00 - 4.00 ] cm LVOT Peak Vel0.74 [ 0.70 - 1.10 ] m/s AoR Diam MM 4.30 [ 2.60 - 3.70 ] cm LVOT VTI12.65 [ 20.00 - 30.00 ] cm ACS MM 1.72 [ 1.50 - 2.60 ] cm MV E Peak Vel0.71 [ 0.60 - 1.30 ] m/s MV A Peak Vel0.86 [ 1.00 - 1.20 ] m/s MV Mean PG 1[ <= 5 ] mmHg MV PHT 40[ 20 - 100 ] msec MVA5.50 MV Decel Appe159 [ 104 - 258 ] msec PV Peak Vel1.10 [ 0.40 - 0.80 ] m/s TR Peak Vel2.07 [ 1.00 - 2.80 ] m/s TR Peak PG 17mmHg RVSP27.00 [ 10.00 - 36.00 ] mmHg E'0.06 E/E'12.79 PA Oukwmwck44.00 [ 10.00 - 36.00 ] mmHg Findings: Atrial Septum: The atrial septum is not well visualized. Left Ventricle: Mild concentric left ventricular hypertrophy. Normal global leftventricular systolic function. Diastolic dysfunction is present. Ejection fraction is visuallyestimated at 60 to 65 %. Left Atrium: The left atrium is normal in size. Right Ventricle: Normal right ventricular size. Right Atrium: The right atrium is normal in size. Aortic Valve: Normal structure of the aortic valve. Mitral Valve: Normal structure of the mitral valve. Trivial regurgitation of the mitralvalve. Pulmonic Valve: Pulmonic valve not well visualized. Trivial regurgitation in the pulmonicvalve. Tricuspid Valve: Normal structure of the tricuspid valve. Trivial regurgitation in thetricuspid valve. Pericardium: There is an anterior echo free space consistent with epicardial fat pad. Aorta: Normal aortic root. IVC: The IVC is not well visualized. Conclusions: Mild concentric left ventricular hypertrophy. Normal global leftventricular systolic function. Diastolic dysfunction is present. Ejection fraction is visuallyestimated at 60 to 65 %. Normal structure of the mitral valve. Trivial regurgitation of the mitralvalve. Normal structure of the aortic valve. Normal structure of the tricuspid valve. Trivial regurgitation in thetricuspid valve. Electronically Signed By: Dr Vicente Musa 2021-03-03 15:44:03 CDT Dee Lin MD CV ECHO PROCEDURES Final Re sult * Procalcitonin (03/02/2021 9:25 PM CDT) Procalcitonin <0.10 <=0.15 ng/mL [facility] ([place]) Comment: Test Performed by: [facility] [address] [place] [address] [employer]stabout Pusher: Gregor Jimenez M.D. Ph.D.; CLIA# [id number] Blood 03/02/2021 9:25 PM CDT 03/02/2021 9:36 PM CDT Dee Lin MD LAB BLOOD ORDERABLES Final Result [facility] ([place]) 1 [facility] Department [place] [address] * Blood culture Blood (03/02/2021 8:06 PM CDT) Report Final Report: No growth [facility] ([place]) Comment:Testing performed by : [facility], [address] [facility] [address], [place]., [address] Blood 03/02/2021 8:06 PM CDT 03/03/2021 1:10 AM CDT Narrative [facility] ([place]) - 03/07/2021 7:00 AM CDT 1. ?Blood cultures are incubated for 4 days on a continuously monitored blood culture system. The first report of a negative culture is issued within 24 hours of receipt of the specimen in the laboratory. 2. ?Positive culture results are reported as soon as they are detected. 3. ?The most important factor for detection of microbes in the setting of bloodstream infection is the volume of blood submitted for culture. Failure to collect an optimal blood volume can result in false negative blood cultures. For pediatric patients, the recommended blood volume to collect is 1 mL of blood per year of patient age (up to 20 mL) per blood culture set. For adult patients, 20 mL of blood, divided equally between aerobic and anaerobic blood culture bottles, is recommended for each blood culture set. 4. ?For blood cultures with Gram-positive cocci, a rapid molecular test for organism identification may be performed using the [employer] Gram-Positive Blood Culture Assay. This assay detects microbial DNA in positive blood culture broth via hybridization of target DNA to capture oligonucleotides on a microarray. This assay has been cleared by the [place] Food and Drug Administration and its performance characteristics have been verified by the [facility]. 5. ?For questions about this culture, contact the Microbiology Laboratory at [phone]. Interpretive data was last revised on 2019. Dee Lin MD LAB MICROBIOLOGY - GENERAL ORDERABLES Final Result [facility]ARWIN (LAKESHA) 1 [facility] Department [place] [address] * CT Chest PE (CTA) W Contrast (03/02/2021 7:20 PM CDT) Anatomical Region Laterality Modality Body N/A Computed Tomogra phy 03/02/2021 7:47 PM CDT Narrative 03/02/2021 7:55 PM CDT EXAM DESCRIPTION: ?? CT CHEST PE (CTA) W CONTRAST REASON FOR STUDY: ?? PE suspected, intermediate prob, positive D-dimer ??Cough, SOB, and weakness ongoing for 16 days has increased today. ??Pt tested positive for covid 16 days ago. ??Hx of appendectomy, and heart attack. ?? TECHNIQUE: ??CT angiogram of the chest performed with intravenous contrast using helical scanning technique with dynamic intravenous contrast injection. Reconstructed coronal and sagittal MPR images reviewed. All images stored on PACS. ??3D MIP images rendered on scanning unit and reviewed at time of interpretation. Automated exposure control was used as a dose optimization technique for this examination. CONTRAST TYPE/DOSE: ?? 100mL of IOVERSOL 350 MG IODINE/ML INTRAVENOUS SOLUTION injected via ??intravenous COMPARISON: ?? None FINDINGS: VASCULATURE: ??No identified pulmonary emboli. LUNGS: ??There are multifocal, patchy ground-glass infiltrates involving the upper and lower lobes bilaterally characteristic of bilateral pneumonia and consistent with the patient's diagnosis of COVID-19 infection. PLEURA: ??No effusion. No pneumothorax. MEDIASTINUM/NII: ??No identified masses or abnormal nodes. HEART: ??Heart size is normal with no pericardial effusion. ??Coronary artery calcification. ??Recommend clinical correlation for coronary artery disease. AXILLA: ??No adenopathy. CHEST WALL: ??No masses. ??No subcutaneous air. HARDWARE/LINES/TUBES: ??None. UPPER ABDOMEN: ??No significant abnormality. MUSCULOSKELETAL: ??No significant abnormality. OTHER: ??No significant abnormality. IMPRESSION: ?? 1. ??No CT evidence for pulmonary embolus. 2. ??Multifocal, patchy ground-glass infiltrates involving the upper and lower lobes bilaterally characteristic of bilateral pneumonia and consistent with the patient's diagnosis of COVID-19 infection. 3. ??Coronary artery calcification. ??Recommend clinical correlation for coronary artery disease. THIS IS AN ELECTRONICALLY VERIFIED FINAL REPORT 03/02/2021 7:55 PM - Electronically signed by Seb Leach M.D. KT: KIN D: ??03/02/2021 7:55 PM T: ??03/02/2021 7:55 PM Report ID: [id number] Reading Location: ??[id number] Procedure Note Seb Leach MD - 03/02/2021 EXAM DESCRIPTION: CT CHEST PE (CTA) W CONTRAST REASON FOR STUDY: PE suspected, intermediate prob, positive D-dimerCough, SOB, and weakness ongoing for 16 days has increased today. Pt testedpositive for covid 16 days ago. Hx of appendectomy, and heart attack. TECHNIQUE: CT angiogram of the chest performed with intravenous contrast using helical scanning technique with dynamic intravenous contrastinjection. Reconstructed coronal and sagittal MPR images reviewed. All images storedon PACS. 3D MIP images rendered on scanning unit and reviewed at time of interpretation. Automated exposure control was used as a dose optimization technique for this examination. CONTRAST TYPE/DOSE: 100mL of IOVERSOL 350 MG IODINE/ML INTRAVENOUSSOLUTION injected via intravenous COMPARISON: None FINDINGS: VASCULATURE: No identified pulmonary emboli. LUNGS: There are multifocal, patchy ground-glass infiltrates involvingthe upper and lower lobes bilaterally characteristic of bilateral pneumoniaand consistent with the patient's diagnosis of COVID-19 infection. PLEURA: No effusion. No pneumothorax. MEDIASTINUM/NII: No identified masses or abnormal nodes. HEART: Heart size is normal with no pericardial effusion. Coronaryartery calcification. Recommend clinical correlation for coronary arterydisease. AXILLA: No adenopathy. CHEST WALL: No masses. No subcutaneous air. HARDWARE/LINES/TUBES: None. UPPER ABDOMEN: No significant abnormality. MUSCULOSKELETAL: No significant abnormality. OTHER: No significant abnormality. IMPRESSION: 1. No CT evidence for pulmonary embolus. 2. Multifocal, patchy ground-glass infiltrates involving the upper andlower lobes bilaterally characteristic of bilateral pneumonia and consistentwith the patient's diagnosis of COVID-19 infection. 3. Coronary artery calcification. Recommend clinical correlation for coronary artery disease. THIS IS AN ELECTRONICALLY VERIFIED FINAL REPORT 03/02/2021 7:55 PM - Electronically signed by Seb Leach M.D. KT: KIN Report ID: [id number] Reading Location: [id number] us Dee Lin MD IMG CT PROCEDURES Final Res ult * CT Abdomen Pelvis W Contrast (03/02/2021 7:20 PM CDT) Anatomical Region Laterality Modality Body N/A Computed Tomogra phy 03/02/2021 7:41 PM CDT Narrative 03/02/2021 7:47 PM CDT EXAM DESCRIPTION: ?? CT ABDOMEN PELVIS W CONTRAST REASON FOR STUDY: ?? Abdominal infection suspected ??Cough, SOB, and weakness ongoing for 16 days has increased today. ??Pt tested positive for covid 16 days ago. ??Hx of appendectomy, and heart attack. ?? TECHNIQUE: ??CT scan of the abdomen and pelvis performed with intravenous and ?? without oral contrast using helical scanning technique with dynamic intravenous contrast injection. Reconstructed coronal and sagittal MPR images reviewed. All images stored on PACS. Automated exposure control was used as a dose optimization technique for this examination. CONTRAST TYPE/DOSE: ?? 100mL of IOVERSOL 350 MG IODINE/ML INTRAVENOUS SOLUTION injected via ??intravenous COMPARISON: ?? None FINDINGS: LOWER CHEST: ??There are multifocal, patchy infiltrates involving the lower lobes bilaterally characteristic of bilateral pneumonia and consistent with the patient's diagnosis of COVID-19 infection. LIVER: ??Decreased attenuation as seen with fibrofatty changes. GALLBLADDER: ??No stones identified. No wall thickening or inflammatory changes. BILE DUCTS: ??No intrahepatic or extrahepatic ductal dilatation. SPLEEN: ??Normal size. ??No focal lesions. PANCREAS: ??No identified cystic or solid masses. No significant calcifications. No adjacent inflammation or peripancreatic fluid collections. Pancreatic duct not dilated. ADRENALS: ??Normal. KIDNEYS/URINARY TRACT: ??No identified significant cystic or solid masses. No visualized stones. No hydronephrosis or hydroureter. Symmetric enhancement. ?? Urinary bladder is unremarkable. GI: ??No dilated bowel loops. No obvious wall thickening. ??Appendix surgically absent. ??Scattered diverticular disease without diverticulitis. PERITONEUM: ??No ascites or free air. RETROPERITONEUM: ??No mass or adenopathy. REPRODUCTIVE: ??No significant abnormality. VASCULATURE: ??No abdominal aortic aneurysm. MUSCULOSKELETAL: ??No significant abnormality. OTHER: ??Bilateral inguinal hernias containing only fat. IMPRESSION: ?? 1. ??Multifocal, patchy infiltrates involving the lower lobes bilaterally characteristic of bilateral pneumonia and consistent with the patient's diagnosis of COVID-19 infection. 2. ??Fatty infiltration of the liver. 3. ??Diverticulosis. 4. ??Small bilateral inguinal hernias containing only fat. THIS IS AN ELECTRONICALLY VERIFIED FINAL REPORT 03/02/2021 7:47 PM - Electronically signed by Seb Leach M.D. KT: KIN D: ??03/02/2021 7:47 PM T: ??03/02/2021 7:47 PM Report ID: [id number] Reading Location: ??[id number] Procedure Note Seb Leach MD - 03/02/2021 EXAM DESCRIPTION: CT ABDOMEN PELVIS W CONTRAST REASON FOR STUDY: Abdominal infection suspected Cough, SOB, andweakness ongoing for 16 days has increased today. Pt tested positive for covid 16days ago. Hx of appendectomy, and heart attack. TECHNIQUE: CT scan of the abdomen and pelvis performed with intravenousand without oral contrast using helical scanning technique with dynamic intravenous contrast injection. Reconstructed coronal and sagittal MPRimages reviewed. All images stored on PACS. Automated exposure control was used as a dose optimization technique forthis examination. CONTRAST TYPE/DOSE: 100mL of IOVERSOL 350 MG IODINE/ML INTRAVENOUSSOLUTION injected via intravenous COMPARISON: None FINDINGS: LOWER CHEST: There are multifocal, patchy infiltrates involving the lower lobes bilaterally characteristic of bilateral pneumonia and consistentwith the patient's diagnosis of COVID-19 infection. LIVER: Decreased attenuation as seen with fibrofatty changes. GALLBLADDER: No stones identified. No wall thickening or inflammatorychanges. BILE DUCTS: No intrahepatic or extrahepatic ductal dilatation. SPLEEN: Normal size. No focal lesions. PANCREAS: No identified cystic or solid masses. No significant calcifications. No adjacent inflammation or peripancreatic fluidcollections. Pancreatic duct not dilated. ADRENALS: Normal. KIDNEYS/URINARY TRACT: No identified significant cystic or solid masses.No visualized stones. No hydronephrosis or hydroureter. Symmetricenhancement. Urinary bladder is unremarkable. GI: No dilated bowel loops. No obvious wall thickening. Appendixsurgically absent. Scattered diverticular disease without diverticulitis. PERITONEUM: No ascites or free air. RETROPERITONEUM: No mass or adenopathy. REPRODUCTIVE: No significant abnormality. VASCULATURE: No abdominal aortic aneurysm. MUSCULOSKELETAL: No significant abnormality. OTHER: Bilateral inguinal hernias containing only fat. IMPRESSION: 1. Multifocal, patchy infiltrates involving the lower lobes bilaterally characteristic of bilateral pneumonia and consistent with the patient's diagnosis of COVID-19 infection. 2. Fatty infiltration of the liver. 3. Diverticulosis. 4. Small bilateral inguinal hernias containing only fat. THIS IS AN ELECTRONICALLY VERIFIED FINAL REPORT 03/02/2021 7:47 PM - Electronically signed by eSb Leach M.D. KT: KT Report ID: [id number] Reading Location: [place] [id number] Dee Lin MD IMG CT PROCEDURES Final Res ult * eGFR (03/02/2021 2:29 PM CDT) eGFR 99 mL/min/1.7 3 m2 [facility] ([place]) Comment: Interpretive Data Reference Interval Normal [...] interpretive data was last reviewed 2020 Blood 03/02/2021 2:29 PM CDT 03/02/2021 2:40 PM CDT us Dee Lin MD LAB BLOOD ORDERABLES Final Result [facility] ([place]) 1 [facility] Department [place] [address] * (ABNORMAL) Differential, auto (03/02/2021 2:29 PM CDT) Neutrophil abs 11.5(H) 1.7 - 6.5 K/cumm [facility] ([place]) Imm gran abs 0.3(H) 0.0 - 0.1 K/cumm [facility] ([place]) Lymphocyte abs 1.6 0.8 - 3.3 K/cumm [facility] ([place]) Monocyte abs 1.0(H) 0.2 - 0.8 K/cumm [facility] ([place]) Eosinophil abs 0.0 0.0 - 0.5 K/cumm [facility] ([place]) Basophil abs 0.0 0.0 - 0.1 K/cumm [facility] ([place]) Neutrophil pct 79.5 % [facility] ([place]) Comment: Interpretive Data Percent cell count reference ranges are not reported, since discordance with absolute values may lead to misinterpretation of CBC data. Current Interpretive Data was last revised on 2017. Imm gran pct 1.9 % [facility] ([place]) Comment: Interpretive Data Percent cell count reference ranges are not reported, since discordance with absolute values may lead to misinterpretation of CBC data. Current Interpretive Data was last revised on 2017. Lymphocyte pct 11.1 % [facility] ([place]) Comment: Interpretive Data Percent cell count reference ranges are not reported, since discordance with absolute values may lead to misinterpretation of CBC data. Current Interpretive Data was last revised on 2017. Monocyte pct 6.9 % [facility] ([place]) Comment: Interpretive Data Percent cell count reference ranges are not reported, since discordance with absolute values may lead to misinterpretation of CBC data. Current Interpretive Data was last revised on 2017. Eosinophil pct 0.3 % [facility] ([place]) Comment: Interpretive Data Percent cell count reference ranges are not reported, since discordance with absolute values may lead to misinterpretation of CBC data. Current Interpretive Data was last revised on 2017. Basophil pct 0.3 % [facility] ([place]) Comment: Interpretive Data Percent cell count reference ranges are not reported, since discordance with absolute values may lead to misinterpretation of CBC data. Current Interpretive Data was last revised on 2017. Blood 03/02/2021 2:29 PM CDT 03/02/2021 2:40 PM CDT Dee Lin MD LAB BLOOD ORDERABLES Final Result [facility] ([place]) 1 [facility] Department [place] [address] * Blood culture Blood (03/02/2021 2:29 PM CDT) Report Final Report: No growth [facility] ([place]) Comment:Testing performed by : [facility], [address] [facility] [place] [address] Blood 03/02/2021 2:29 PM CDT 03/02/2021 5:15 PM CDT Narrative [facility] ([place]) - 03/07/2021 7:00 AM CDT 1. ?Blood cultures are incubated for 4 days on a continuously monitored blood culture system. The first report of a negative culture is issued within 24 hours of receipt of the specimen in the laboratory. 2. ?Positive culture results are reported as soon as they are detected. 3. ?The most important factor for detection of microbes in the setting of bloodstream infection is the volume of blood submitted for culture. Failure to collect an optimal blood volume can result in false negative blood cultures. For pediatric patients, the recommended blood volume to collect is 1 mL of blood per year of patient age (up to 20 mL) per blood culture set. For adult patients, 20 mL of blood, divided equally between aerobic and anaerobic blood culture bottles, is recommended for each blood culture set. 4. ?For blood cultures with Gram-positive cocci, a rapid molecular test for organism identification may be performed using the [employer] Gram-Positive Blood Culture Assay. This assay detects microbial DNA in positive blood culture broth via hybridization of target DNA to capture oligonucleotides on a microarray. This assay has been cleared by the [place] Food and Drug Administration and its performance characteristics have been verified by the [facility] Microbiology Laboratory. 5. ?For questions about this culture, contact the Microbiology Laboratory at [phone]. Interpretive data was last revised on 2019. Dee Lin MD LAB MICROBIOLOGY - GENERAL ORDERABLES Final Result [facility] ([place]) 1 [facility] Department [place] [address] * (ABNORMAL) Comprehensive metabolic panel (03/02/2021 2:29 PM CDT) Sodium 138 135 - 145 mmol/L [facility] ([place]) Potassium, pl 4.0 3.3 - 4.9 mmol/L [facility] ([place]) Chloride 105 97 - 110 mmol/L [facility] ([place]) CO2 21(L) 22 - 32 mmol/L [facility] ([place]) Anion gap 12 2 - 15 mmol/L [facility] ([place]) BUN 29(H) 8 - 25 mg/dL [facility] ([place]) Creatinine 0.75(L) 0.80 - 1.30 mg/dL [facility] ([place]) Glucose 157 70 - 199 mg/dL [facility] ([place]) [...] interpretive data was last revised 2017. Calcium 8.7 8.5 - 10.3 mg/dL [facility] ([place]) Bilirubin, total 0.6 0.1 - 1.2 mg/dL [facility] ([place]) Protein, pl 6.7 6.5 - 8.5 g/dL [facility] ([place]) Albumin 3.4(L) 3.5 - 5.0 g/dL [facility] ([place]) Alk phos 99 40 - 130 Units/L [facility] ([place]) ALT 108(H) 7 - 55 Units/L [facility] ([place]) AST 52(H) 10 - 50 Units/L [facility] ([place]) Comment: Hemolysis present. ??Results may be affected. Slightly Hemolyzed Specimen Blood 03/02/2021 2:29 PM CDT 03/02/2021 2:40 PM CDT Dee Lin MD LAB BLOOD ORDERABLES Final Result [facility] ([place]) 1 [facility] [employer] [place] [address] * (ABNORMAL) CRP (acute phase) (03/02/2021 2:29 PM CDT) CRP 24.2(H) <=10.0 mg/L [facility] ([place]) Blood 03/02/2021 2:29 PM CDT 03/02/2021 2:40 PM CDT Dee Lin MD LAB BLOOD ORDERABLES Final Result [facility] ([place]) 1 [facility] Department of [place] [address] * Pro B-type natriuretic peptide (03/02/2021 2:29 PM CDT) NT-proBNP 159 <=300 pg/mL [facility] ([place]) Comment: Interpretive Comments: A. Dyspnea in Acute [...] Interpretive Data Last Revised Date: 2018. Blood 03/02/2021 2:29 PM CDT 03/02/2021 2:40 PM CDT Dee Lin MD LAB BLOOD ORDERABLES Final Result Performing Organization Address [facility] Co de Phone Number [facility] ([place]) 1 [facility] [employer] [address] * (ABNORMAL) D-dimer, quantitative (03/02/2021 2:29 PM CDT) D-Dimer 2,444(H) <=499 ng/mL FEU [facility] ([place]) Comment: reviewed Interpretive data FDA approved the D-dimer, in conjunction with a low or moderate pretest probability score, to exclude venous thromboembolic events (VTE) (PE and DVT) in outpatients when the D-dimer result is < 500 ng/ml FEU. ?? Evidence supports using an age-adjusted D-dimer cut-off for outpatients older than 50 (age x 10) to improve specificity without sacrificing sensitivity. Example: age 68, VTE cut-off 680 ng/ml FEU. References; Akin HT et al. Brit Med J. 2013;346:f2492. Kwabena et al. Annals Int Med. 2015;163:701-11. Current interpretive data was last revised on 2019. Blood 03/02/2021 2:29 PM CDT 03/02/2021 2:40 PM CDT us Dee Lin MD LAB BLOOD ORDERABLES Final Result Performing Organization Address [facility] Co de Phone Number [facility] ([place]) 1 [facility] [place] [address] * (ABNORMAL) CBC with auto differential (03/02/2021 2:29 PM CDT) WBC 14.5(H) 3.8 - 9.9 K/cumm [facility] ([place]) Hgb 14.1 13.0 - 17.5 g/dL [facility] ([place]) Hct 43.1 38.9 - 50.3 % [facility] ([place]) Plt 459(H) 150 - 400 K/cumm [facility] ([place]) MPV 8.5(L) 9.1 - 12.3 fL [facility] ([place]) RBC 4.70 4.30 - 5.80 M/cumm [facility] ([place]) MCV 91.7 81.3 - 96.4 fL [facility] ([place]) MCH 30.0 27.1 - 33.3 pg [facility] ([place]) MCHC 32.7 32.3 - 35.7 g/dL [facility] ([place]) RDW CV 12.3 11.1 - 14.9 % [facility] ([place]) RDW SD 41.0 35.7 - 48.1 fL [facility] ([place]) NRBC abs 0.02(H) 0.00 - 0.01 K/cumm [facility] ([place]) Blood 03/02/2021 2:29 PM CDT 03/02/2021 2:40 PM CDT Dee Lin MD LAB BLOOD ORDERABLES Final Result [facility] ([place]) 1 [facility] Department [place] [address] * ECG 12 lead (03/02/2021 2:16 PM CDT) 03/02/2021 2:16 PM CDT Narrative [facility] - 03/03/2021 2:51 PM CDT Vent Rate: 88 bpm RR Interval: 679 msec [place] Interval: 195 msec QRS Duration: 125 msec QT Interval: 364 msec QTC Interval: 409 msec P-R-T [place]: 14 - -24 - 95 degrees SINUS RHYTHM VOLTAGE CRITERIA FOR LVH, CONSIDER NORMAL VARIANT ??[MEETS CRITERIA IN ONE OF: R(aVL), S(V1), R(V5), R(V5/V6)+S(V1)] POSSIBLE ANTERIOR MYOCARDIAL INFARCTION , OF INDETERMINATE AGE [30 ms Q WAVE IN V3/V4, OR R < 0.2 mV IN V4] ABNORMAL ECG Electronically Signed By: Dr Claus Manning us Dee Lin MD ECG ORDERABLES Final Resul t [facility] * XR Chest 1 Vw Portable (03/02/2021 2:07 PM CDT) Anatomical Region Laterality Modality Body, Chest N/A Computed Radiogr aphy 03/02/2021 2:33 PM CDT Narrative 03/02/2021 2:35 PM CDT EXAM DESCRIPTION: ?? XR CHEST 1 VIEW REASON FOR STUDY: ?? COVID-19 ??Pt presents to the ED from home with c/o cough, SOB, [place], weakness. Pt was seen here Wednesday and diagnosed with covid pneumonia and d/c home. Per pts he finished his steroids and still not feeling any better. Symptoms started 16 days ago ?? TECHNIQUE: ?? Frontal radiographic view of the chest acquired. COMPARISON: ?? Prior chest x-rays including 02/25/2021 FINDINGS: LUNGS/PLEURA: ??Patchy airspace and interstitial opacities throughout both lungs are progressive, particularly in the periphery of the right mid to lower lung. ??No pneumothorax or large pleural effusion. HEART/MEDIASTINUM: ??Unchanged cardiomediastinal silhouette. HARDWARE/LINES/TUBES: ??None. BONES: ??No acute findings. OTHER: ??No other significant finding. IMPRESSION: ?? Progressive interstitial and airspace opacities, particularly in the right lower lung. THIS IS AN ELECTRONICALLY VERIFIED FINAL REPORT 03/02/2021 2:35 PM - Electronically signed by Dedrick Gaines M.D. BC: BC D: ??03/02/2021 2:35 PM T: ??03/02/2021 2:35 PM Report ID: [id number] Reading Location: ??[id number] Procedure Note Dedrick Gaines MD - 03/02/2021 EXAM DESCRIPTION: XR CHEST 1 VIEW REASON FOR STUDY: COVID-19 Pt presents to the ED from home with c/ocough, SOB, [place], weakness. Pt was seen here Wednesday and diagnosed with covidpneumonia and d/c home. Per pts he finished his steroids and still not feelingany better. Symptoms started 16 days ago TECHNIQUE: Frontal radiographic view of the chest acquired. COMPARISON: Prior chest x-rays including 02/25/2021 FINDINGS: LUNGS/PLEURA: Patchy airspace and interstitial opacities throughout both lungs are progressive, particularly in the periphery of the right mid tolower lung. No pneumothorax or large pleural effusion. HEART/MEDIASTINUM: Unchanged cardiomediastinal silhouette. HARDWARE/LINES/TUBES: None. BONES: No acute findings. OTHER: No other significant finding. IMPRESSION: Progressive interstitial and airspace opacities,particularly in the right lower lung. THIS IS AN ELECTRONICALLY VERIFIED FINAL REPORT 03/02/2021 2:35 PM - Electronically signed by Dedrick Gaines M.D. BC: LEISA Report ID: [id number] Reading Location: [place] [address] Dee Lin MD IMG XR PROCEDURES Final Res ult * (ABNORMAL) Blood gas, arterial (03/02/2021 1:53 PM CDT) pH, Art 7.51(H) 7.35 - 7.45 [facility] ([place]) PCO2, Arterial 27(L) 35 - 45 mmHg [facility] ([place]) PO2, Arterial 117(H) 83 - 108 mmHg [facility] ([place]) HCO3 Art (Calculated) 21 20 - 30 mmol/L [facility] ([place]) BE, art 0 mmol/L [facility] ([place]) Comment: Interpretive Data No Reference Range Established Current Interpretive Data was last revised on 2017 O2 Sat Art (Measured) 99(H) 90 - 95 % [facility] ([place]) Blood 03/02/2021 1:53 PM CDT 03/02/2021 2:16 PM CDT us Dee Lin MD LAB BLOOD ORDERABLES Final Result [facility] ([place]) 1 [facility] Department of [place] [address] * Sepsis Lactate w/ Reflex (03/02/2021 1:53 PM CDT) Sepsis Lactate 1.7 0.7 - 2.0 mmol/L [facility] ([place]) Blood 03/02/2021 1:53 PM CDT 03/02/2021 2:23 PM CDT us Dee Lin MD LAB BLOOD ORDERABLES Final Result [facility] ([place]) 1 [facility] Department [place] [address] documented in this encounter Visit Diagnoses Diagnosis Pneumonia due to COVID-19 virus- Primary Pneumonia due to COVID-19 virus Leukemoid reaction Hypoxia Hypoxemia Hyperlipidemia Other and unspecified hyperlipidemia Cervical radiculopathy Brachial neuritis or radiculitis nos Cough Obstructive sleep apnea syndrome in adult Benign essential HTN documented in this encounter Admitting Diagnoses Diagnosis Pneumonia due to COVID-19 virus documented in this encounter Administered Medications Inactive Administered Medications - up to 3 most recent administrations Medication Order MAR Action Action Date Dose Rate Site acetaminophen (TYLENOL) tablet 650 mg 650 mg, oral, Every 4 hours PRN, 1st line for pain, Starting on 03/02/21 at 2243, Indications: PainIndications:Pain Given 03/06/2021 8:18 AM CDT 650 mg Given 03/05/2021 11:28 PM CDT 650 mg Given 03/04/2021 1:44 AM CDT 650 mg albuterol HFA (PROVENTIL HFA,VENTOLIN HFA,PROAIR HFA) 90 mcg/actuation inhaler 2 puff 2 puff, 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, 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), On 03/02/21 at 1359, For 1 dose Given 03/02/2021 2:22 PM CDT 2 puffs albuterol HFA (PROVENTIL HFA,VENTOLIN HFA,PROAIR HFA) 90 mcg/actuation inhaler 2 puff 2 puff, inhalation, Every 6 hours 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), wheezing, Starting on 03/02/21 at 2256 albuterol HFA (PROVENTIL HFA,VENTOLIN HFA,PROAIR HFA) 90 mcg/actuation inhaler 2 puff 2 puff, inhalation, Every 4 hours while awake (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), First dose on Wed03/03/21 at 2000 Given 03/03/2021 8:05 PM CDT 2 puffs albuterol HFA (PROVENTIL HFA,VENTOLIN HFA,PROAIR HFA) 90 mcg/actuation inhaler 2 puff 2 puff, inhalation, Every 6 hours (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), First dose (after last modification) on Wed03/04/21 at 0200 Given 03/05/2021 1:43 AM CDT 2 puffs Given 03/04/2021 7:33 PM CDT 2 puffs Given 03/04/2021 3:17 PM CDT 2 puffs amLODIPine (NORVASC) tablet 10 mg 10 mg, oral, Daily, First dose on Wed03/03/21 at 1900 Given 03/06/2021 8:18 AM CDT 10 mg Given 03/05/2021 8:28 AM CDT 10 mg Given 03/04/2021 8:38 AM CDT 10 mg aspirin tablet 325 mg 325 mg, oral, Daily, First dose on Wed03/03/21 at 1900 Given 03/06/2021 8:18 AM CDT 325 mg Given 03/05/2021 8:28 AM CDT 325 mg Given 03/04/2021 8:38 AM CDT 325 mg atorvastatin (LIPITOR) tablet 10 mg 10 mg, oral, Daily, First dose on Wed03/03/21 at 2100 Given 03/05/2021 9:13 PM CDT 10 mg Given 03/04/2021 9:08 PM CDT 10 mg Given 03/03/2021 8:32 PM CDT 10 mg azithromycin (ZITHROMAX) tablet 500 mg 500 mg, oral, Once, On Wed03/02/21 at 1822, For 1 dose, Indications: Pneumonia, Community AcquiredIndications:Pneumonia, Community Acquired Given 03/02/2021 6:44 PM CDT 500 mg azithromycin (ZITHROMAX) tablet 500 mg 500 mg, oral, Daily, First dose on Wed03/03/21 at 0900, Indications: Pneumonia, Community AcquiredIndications:Pneumonia, Community Acquired Given 03/04/2021 8:38 AM CDT 500 mg Given 03/03/2021 9:26 AM CDT 500 mg bisacodyl EC (DULCOLAX EC) tablet 10 mg 10 mg, oral, Daily PRN, constipation, If no results 24 hours after milk of magnesia, Starting on Wed03/03/21 at 2329, Do not crush, chew, cut, dissolve, open or otherwise manipulate tablet/capsule. cefTRIAXone (ROCEPHIN) 1,000 mg/10 mL in sterile water (premix) 1,000 mg 1,000 mg, intravenous, at 600 mL/hr, Administer over 1 Minutes, Every 24 hours scheduled, First dose on Wed03/03/21 at 0900, Indications: Pneumonia, Community AcquiredIndications:Pneumonia, Community Acquired Given 03/04/2021 8:38 AM CDT 1,000 mg 600 mL/hr Given 03/03/2021 9:26 AM CDT 1,000 mg 600 mL/hr cefTRIAXone (ROCEPHIN) 2,000 mg/20 mL in sterile water (premix) 2,000 mg 2,000 mg, intravenous, at 1,200 mL/hr, Administer over 1 Minutes, Once, On 03/02/21 at 1822, For 1 dose, Indications: Pneumonia, Community AcquiredIndications:Pneumonia, Community Acquired Given 03/02/2021 6:45 PM CDT 2,000 mg 1200 mL/hr dexAMETHasone (DECADRON) 4 mg/mL injection 6 mg 6 mg, intravenous, Administer over 2 Minutes, Once, On Wed03/02/21 at 1353, For 1 dose Given 03/02/2021 2:29 PM CDT 6 mg dexAMETHasone (DECADRON) injection solution 6 mg 6 mg, intravenous, Administer over 2 Minutes, Every 24 hours, First dose on Wed03/02/21 at 2315 Given 03/05/2021 9:13 PM CDT 6 mg Given 03/04/2021 9:08 PM CDT 6 mg Given 03/03/2021 8:32 PM CDT 6 mg enoxaparin (LOVENOX) syringe 40 mg 40 mg, subcutaneous, Daily (for enoxaparin), First dose on Wed03/02/21 at 2315, Indications: Deep Vein Thrombosis PreventionIndications:Deep Vein Thrombosis Prevention Given 03/05/2021 9:13 PM CDT 40 mg Right Lower Abdomen Given 03/04/2021 9:08 PM CDT 40 mg Ri ght Lower Abdomen Given 03/03/2021 8:32 PM CDT 40 mg Ri ght Lower Abdomen ioversoL (OPTIRAY 350) injection 125 mL 125 mL, intravenous, Once in imaging, contrast, Starting on Wed03/02/21 at 1904, For 1 dose Contrast Given 03/02/2021 7:06 PM CDT 100 mL magnesium hydroxide (MILK OF MAGNESIA) 80 mg/mL (33.3 mg/mL as elemental magnesium) oral suspension 30 mL 30 mL, oral, Daily PRN, constipation, Starting on Wed03/03/21 at 2329 metoprolol XL (TOPROL-XL) extended release tablet 100 mg 100 mg, oral, Daily, First dose on Wed03/03/21 at 1900, Tablets that are scored may be split, but do not crush, chew, dissolve, open or otherwise manipulate tablet/capsule., Indications: hypertensionIndications:hypertension Given 03/06/2021 8:18 AM CDT 100 mg Given 03/05/2021 8:28 AM CDT 100 mg Given 03/04/2021 8:38 AM CDT 100 mg mineral oil (FLEET MINERAL OIL) enema 1 enema 1 enema, rectal, Daily PRN, constipation, if no results 24 hours after bisacodyl, Starting on Wed03/03/21 at 2329, Indications: constipationIndications:constipation ondansetron (ZOFRAN) injection 4 mg 4 mg, intravenous, Administer over 2 Minutes, Every 4 hours PRN, nausea, vomiting, Starting on Wed03/03/21 at 2329 Given 03/04/2021 3:46 PM CDT 4 mg oxyCODONE (ROXICODONE) tablet 5 mg 5 mg, oral, Every 4 hours PRN, 2nd line for pain, Starting on Wed03/02/21 at 2243, May administer 1 hour after 1st line agent for uncontrolled or increasing pain., Indications: PainIndications:Pain Given 03/04/2021 3:46 PM CDT 5 mg sodium chloride (OCEAN) 0.65 % nasal spray 1 spray 1 spray, each nostril, Every 2 hours PRN, for dry nasal passages, Starting on 9/13/21 at 0002 Given 03/03/2021 12:15 AM CDT 1 spray sodium chloride 0.9% bolus 1,000 mL 1,000 mL, intravenous, Once, On Wed03/02/21 at 2007, For 1 dose New Bag 03/02/2021 8:18 PM CDT 1,000 mL sodium chloride 0.9% flush 0.5-20 mL 0.5-20 mL, intra-catheter, Every 8 hours, First dose on Wed03/04/21 at 0600, Flush volume based on line type and size. Given 03/06/2021 5:34 AM CDT 10 mL Given 03/05/2021 9:13 PM CDT 10 mL Given 03/05/2021 5:05 PM CDT 10 mL sodium chloride 0.9% flush 0.5-20 mL 0.5-20 mL, intra-catheter, As needed, line care, Starting on Wed03/03/21 at 2328, Flush volume based on line type and size. Flush before and after each use. traZODone (DESYREL) tablet 50 mg 50 mg, oral, Once, On Wed03/03/21 at 0045, For 1 dose Given 03/03/2021 12:15 AM CDT 50 mg documented in this encounter Discontinued Medications Medication Sig Discontinue Reason Start Date End Da te dexAMETHasone (DECADRON) 6 mg tablet Take 1 tablet (6 mg total) by mouth 2 (two) times a day with meals Therapy completed 02/25/2021 03/02/2021 documented as of this encounter Active and Recently Administered Medications Times are shown in CDT. Scheduled Medication Order 03/04/2021 03/05/2021 03/06/2021 albuterol HFA (PROVENTIL HFA,VENTOLIN HFA,PROAIR HFA) 90 mcg/actuation inhaler 2 puff (CANCELED) 2 puff, inhalation, Every 6 hours (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), First dose (after last modification) on Wed03/04/21 at 0200 0138 (Given - Provider: Geri Chase, FINAL ASSEMBLER BOAT)0807 (Given - Provider: Heidi Jameson, FINAL ASSEMBLER BOAT)1517 (Given - Provider: Heidi Jameson, FINAL ASSEMBLER BOAT)1933 (Given - Provider: Geri Chase, FINAL ASSEMBLER BOAT) 0143 (Given - Provider: Geri Chase, FINAL ASSEMBLER BOAT) amLODIPine (NORVASC) tablet 10 mg 10 mg, oral, Daily, First dose on Wed03/03/21 at 1900 0838 (Given - Provider: Jolene Randolph RN) 0828 (Given - Provider: Augustina Ibrahim, ANTONIO) 0818 (Given - Provider: Justen Gamboa, ANTONIO) aspirin tablet 325 mg 325 mg, oral, Daily, First dose on Wed03/03/21 at 1900 0838 (Given - Provider: Jolene Randolph RN) 0828 (Given - Provider: Augustina Ibrahim, ANTONIO) 0818 (Given - Provider: Justen Gamboa, ANTONIO) atorvastatin (LIPITOR) tablet 10 mg 10 mg, oral, Daily, First dose on Wed03/03/21 at 2100 2108 (Given - Provider: Zehra Thompson RN) 2112 (Given - Provider: Kathia Leblanc, ANTONIO) azithromycin (ZITHROMAX) tablet 500 mg (CANCELED) 500 mg, oral, Daily, First dose on Wed03/03/21 at 0900, Indications: Pneumonia, Community Acquired 0838 (Given - Provider: Jolene Randolph RN) cefTRIAXone (ROCEPHIN) 1,000 mg/10 mL in sterile water (premix) 1,000 mg (CANCELED) 1,000 mg, intravenous, at 600 mL/hr, Administer over 1 Minutes, Every 24 hours scheduled, First dose on Wed03/03/21 at 0900, Indications: Pneumonia, Community Acquired 0838 (Given - Provider: Jolene Randolph RN) dexAMETHasone (DECADRON) injection solution 6 mg 6 mg, intravenous, Administer over 2 Minutes, Every 24 hours, First dose on Wed03/02/21 at 2315 2108 (Given - Provider: Zehra Thompson RN) 0531 (Not Given - Provider: Zehra Thompson RN - Reason: Other - Comment: was given early)2112 (Given - Provider: Kathia Leblanc, ANTONIO)2220 (Not Given - Provider: Kathia Leblanc RN - Reason: Other - Comment: given early) enoxaparin (LOVENOX) syringe 40 mg 40 mg, subcutaneous, Daily (for enoxaparin), First dose on Wed03/02/21 at 2315, Indications: Deep Vein Thrombosis Prevention 210 (Given - Provider: Zehra Thompson RN) 2112 (Given - Provider: Kathia Leblanc, ANTONIO) metoprolol XL (TOPROL-XL) extended release tablet 100 mg 100 mg, oral, Daily, First dose on Wed03/03/21 at 1900, Tablets that are scored may be split, but do not crush, chew, dissolve, open or otherwise manipulate tablet/capsule., Indications: hypertension 0838 (Given - Provider: Jolene Randolph RN) 0828 (Given - Provider: Augustina Ibrahim, ANTONIO) 0818 (Given - Provider: Justen Gamboa, ANTONIO) sodium chloride 0.9% flush 0.5-20 mL 0.5-20 mL, intra-catheter, Every 8 hours, First dose on Wed03/04/21 at 0600, Flush volume based on line type and size. 0611 (Not Given - Provider: Zehra Thompson RN - Reason: Other)1546 (Given - Provider: Jolene Randolph RN)2110 (Given - Provider: Zehra Thompson RN) 0531 (Not Given - Provider: Zehra Thompson RN - Reason: Other)1705 (Given - Provider: Augustina Ibrahim, ANTONIO)2112 (Given - Provider: Kathia Leblanc, ANTONIO) 0534 (Given - Provider: Kathia Leblanc, ANTONIO) PRN Medication Order 03/04/2021 03/05/2021 03/06/2021 acetaminophen (TYLENOL) tablet 650 mg 650 mg, oral, Every 4 hours PRN, 1st line for pain, Starting on Wed03/02/21 at 2243, Indications: Pain 0144 (Given - Provider: Zehra Thompson RN) 2328 (Given - Provider: Kathia Leblanc, ANTONIO) 0818 (Given - Provider: Justen Gamboa, ANTONIO) albuterol HFA (PROVENTIL HFA,VENTOLIN HFA,PROAIR HFA) 90 mcg/actuation inhaler 2 puff 2 puff, inhalation, Every 6 hours 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), wheezing, Starting on Wed03/02/21 at 2256 bisacodyl EC (DULCOLAX EC) tablet 10 mg 10 mg, oral, Daily PRN, constipation, If no results 24 hours after milk of magnesia, Starting on Wed03/03/21 at 2329, Do not crush, chew, cut, dissolve, open or otherwise manipulate tablet/capsule. magnesium hydroxide (MILK OF MAGNESIA) 80 mg/mL (33.3 mg/mL as elemental magnesium) oral suspension 30 mL 30 mL, oral, Daily PRN, constipation, Starting on Wed03/03/21 at 2329 mineral oil (FLEET MINERAL OIL) enema 1 enema 1 enema, rectal, Daily PRN, constipation, if no results 24 hours after bisacodyl, Starting on Wed03/03/21 at 2329, Indications: constipation ondansetron (ZOFRAN) injection 4 mg 4 mg, intravenous, Administer over 2 Minutes, Every 4 hours PRN, nausea, vomiting, Starting on Wed03/03/21 at 2329 1546 (Given - Provider: Jolene Randolph, ANTONIO) oxyCODONE (ROXICODONE) tablet 5 mg 5 mg, oral, Every 4 hours PRN, 2nd line for pain, Starting on Wed03/02/21 at 2243, May administer 1 hour after 1st line agent for uncontrolled or increasing pain., Indications: Pain 1546 (Given - Provider: Jolene Randolph RN) sodium chloride (OCEAN) 0.65 % nasal spray 1 spray 1 spray, each nostril, Every 2 hours PRN, for dry nasal passages, Starting on Wed03/03/21 at 0002 sodium chloride 0.9% flush 0.5-20 mL 0.5-20 mL, intra-catheter, As needed, line care, Starting on Wed03/03/21 at 2328, Flush volume based on line type and size. Flush before and after each use. documented in this encounter Orders Medications Ordered That [facility] ht Not Have Been Administered Count Last Ordered Date First Ordered Date bisacodyl EC (DULCOLAX EC) tablet 10 mg 1 0 03/03/2021 ipratropium-albuteroL (DUO-N EB) 0.5-2.5 mg/3 mL nebulizer solution 3 mL 2 03/03/2021 03/02/20 magnesium hydroxide (MILK OF MAGNESIA) 80 mg/mL (33.3 mg/mL as elemental magnesium) oral suspension 30 mL 1 03/03/2021 mineral oil (FLEET MINERAL O IL) enema 1 enema 1 03/03/2021 sodium chloride 0.9% flush 0.5-20 mL 1 02/19 albuterol 2.5 mg /3 mL (0.08 3 %) nebulizer solution 2.5 mg 1 03/02/2021 albuterol HFA (PROVENTIL HFA ,VENTOLIN HFA,PROAIR HFA) 90 mcg/actuation inhaler 2 puff 1 03/02/2021 Nursing Count Last Ordered Date First Orde red Date DISCHARGE ACTIVITY 1 03/06/2021 DISCHARGE CALL PROVIDER 1 03/06/2021 FOLLOW UP WITH ESTABLISHED PROVIDER 1 03/06 WEIGH PATIENT 1 03/02/2021 ADT Patient Update Count Last Ordered Date Firs t Ordered Date ED IP DECISION TO ADMIT 1 03/02/2021 documented in this encounter Additional Health Concerns [...] the result is from a facility outside [facility] . 02/25/2021 03/19/2021 04/02/2021 3:05 AM CDT documented as of this encounter Care Teams Refuge Manager Relationship Specialty Start Date End Date Pal Russell MD PCP - General 06/08/17 09/04/21 documented as of this encounter
--- OUTSIDE RECORDS SUMMARY | 2024-06-25 13:58 | XMS_ITS | Encounter Summary ---
Author Organization [facility] Address [address] [place] [address] Care Team Providers Care Figure Skater Name Role Phone Pal Russell MD Primary Care Provider [phone] Reason for Visit * Reason Onset Date Comments Covid-19 Home Monitoring 02/26/2021 enrollm ent call day 1 Encounter Details Date Type Department Care Team (Late st Contact Info) Description 02/26/2021 Telephone [facility] Accountable Care Organization [address] [place] [id number] Carmelo Hassan MA [address] [place] [id number] Covid-19 Home Monitoring (enrollment call day 1) Social History Tobacco Use Types Packs/Day Years Used Date Smoking Tobacco: Never Smokeless Tobacco: Never Alcohol Use Standard Drinks/Week Comments Yes 0 (1 standard drink = 0.6 oz pur e alcohol) Sex and Gender Information Value Date Recorded Sex Assigned at Not on file 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 The patient was contacted via phone for enrollment in the program. The patient has declined to participate in the automated MyChart Water Treatment Plant Engineer Program, but has verbally agreed to the Phone Only Home Monitoring Program, which includes being contacted for a daily phone assessment by a [facility] staff member. The patient was informed that members of the healthcare team will contact them depending on the symptoms that they report. This call could come from a variety of phone numbers depending on which member of the healthcare team is contacting the patient, and the patient should be prepared to answer calls from a variety of phone numbers. If the patient is unable to be reached for 3 days, they will be disenrolled from the program. Patient is aware that we will try and reach them at every available phone number, including HIPAA contacts. After review, the patient agreed to participate. The ???COVID19 Home Monitoring?? order was placedto enroll the patient in the phone only version of the program. COVID-19 Home Monitoring Flowsheet Answers: Temp/Pulse Ox Temp: (no fever) Symptom Monitoring Are you feeling short of breath today?: No Are you having a cough today?: Yes Cough Details:: Worse Are you experiencing weakness today?: Yes Weakness Details:: Same How is your appetite compared to yesterday?: Unchanged Are you vomiting?: No Are you experiencing diarrhea? : No documented in this encounter Plan of Treatment Scheduled Procedures Name Priority Associated Diagnoses Date/Ti nh COLONOSCOPY Colon cancer screening COLONOSCOPY Colon cancer screening documented as of this encounter Visit Diagnoses Not on filedocumented in this encounter Additional Health Concerns Infection [...] the result is from a facility outside [facility] . 02/25/2021 03/19/2021 04/02/2021 3:05 AM CDT documented as of this encounter Care Teams Figure Skater Relationship Specialty Start Date End Date Pal Russell MD PCP - General 06/08/17 09/04/21 documented as of this encounter
--- OUTSIDE RECORDS SUMMARY | 2024-06-25 13:58 | XMS_ITS | Encounter Summary ---
Author Organization [facility] Address [address] [place] [address] Phone Care Team Providers Care Adult And Pediatric Neurologist Name Role Phone Pal Russell MD Primary Care Provider [phone] Encounter Details Date Type Department Care Team (Late st Contact Info) Description 09/26/2020 Telephone [facility] [address] [place] [address] Pal Russell MD [address] [id number] Social History Tobacco Use Types Packs/Day Years Used Date Smoking Tobacco: Never Smokeless Tobacco: Never Alcohol Use Standard Drinks/Week Comments Yes 0 (1 standard drink = 0.6 oz pur e alcohol) Sex and Gender Information Value Date Recorded Sex Assigned at Not on file Legal 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 Male 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 WORKER 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 Gender Identity Not on file Sexual Orientation Not on file documented as of this encounter Miscellaneous Notes * Telephone Encounter - Flavia Amin MA - 09/26/2020 12:58 PM CDT REFILL COMPLETED ALREADY documented in this encounter Plan of Treatment Scheduled Procedures Name Priority Associated Diagnoses Date/Ti me COLONOSCOPY Colon cancer screening COLONOSCOPY Colon cancer screening documented as of this encounter Visit Diagnoses Not on filedocumented in this encounter Care Teams Adult And Pediatric Neurologist Relationship Specialty Start Date End Date Pal Russell MD PCP - General 06/08/17 09/04/21 documented as of this encounter
--- OUTSIDE RECORDS SUMMARY | 2024-06-25 13:58 | XMS_ITS | Encounter Summary ---
Author Organization [facility] Address [address] [place] [address] [address] [place] [address] Care Team Providers Care Pattern Assembler Name Role Phone Pal Russell MD Primary Care Provider [phone] Reason for Visit * Reason Onset Date Comments Covid-19 Home Monitoring 02/28/2021 daily c all Encounter Details Date Type Department Care Team (Late st Contact Info) Description 02/28/2021 Telephone [facility] Accountable Care Organization [address] [place] [id number] Delia Hassan MA [address] [place] [address] [address] [place] [address] Covid-19 Home Monitoring (daily call) Social History Tobacco Use Types Packs/Day Years Used Date Smoking Tobacco: Never Smokeless Tobacco: Never Alcohol Use Standard Drinks/Week Comments Yes 0 (1 standard drink = 0.6 oz pur e alcohol) Sex and Gender Information Value Date Recorded Sex Assigned at Not on file 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 : No This patient has enrolled in the PHONE ONLY version of COVID-19 Home Monitoring Program. COVID-19 Symptom questionnaire was completed today. Symptoms were addressed to be Mild. Escalation was not needed. Next Program Call Due: 03/01 * Telephone Encounter - Delia Carlos MA - 02/28/2021 11:24 AM CDT [facility] Home Monitoring Unable to Reach Called patient for home monitoring MA assessment. Unable to reach patient. Patient will receive follow up call tomorrow. documented in this encounter Plan of Treatment [...] the result is from a facility outside [facility] . 02/25/2021 03/19/2021 04/02/2021 3:05 AM CDT documented as of this encounter Care Teams Pattern Assembler Relationship Specialty Start Date End Date Pal Russell MD PCP - General 06/08/17 09/04/21 documented as of this encounter
--- OUTSIDE RECORDS SUMMARY | 2024-06-25 13:58 | XMS_ITS | Encounter Summary ---
Author Organization [facility] Address [address] [place] [address] [address] [place] [address] Care Team Providers Care Cornetist Name Role Phone Pal Russell MD Primary Care Provider [phone] Reason for Visit * Reason Onset Date Comments Covid-19 Home Monitoring 02/27/2021 daily c all Encounter Details Date Type Department Care Team (Late st Contact Info) Description 02/27/2021 Telephone [facility] Accountable Care Organization [address] [place] [phone] Delia Hassan MA [address] [place] [address] [address] [place] [address] Covid-19 Home Monitoring (daily call) Social History Tobacco Use Types Packs/Day Years Used Date Smoking Tobacco: Never Smokeless Tobacco: Never Alcohol Use Standard Drinks/Week Comments Yes 0 (1 standard drink = 0.6 oz pur e alcohol) Sex and Gender Information Value Date Recorded Sex Assigned at Not on file 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 02/25/2021 03/19/2021 04/02/2021 3:05 AM CDT documented as of this encounter Care Teams Cornetist Relationship Specialty Start Date End Date Pal Russell MD PCP - General 06/08/17 09/04/21 documented as of this encounter
--- OUTSIDE RECORDS SUMMARY | 2024-06-25 13:58 | XMS_ITS | Encounter Summary ---
Author Organization [facility] Address [address] [place] [address] Phone Care Team Providers Care Front Office Representative Name Role Phone Pal Russell MD Primary Care Provider [phone] Wendi Hawkins MD Primary Care Provider Kelin Collier NP Primary Care Pro vider Encounter Details Date Type Department Care Team (Late st Contact Info) Description 08/14/2020 Orders Only [facility] [address] [place] [address] Scanning, Provider Social History Tobacco Use Types Packs/Day Years Used Date Smoking Tobacco: Never Smokeless Tobacco: Never Alcohol Use Standard Drinks/Week Comments Yes 0 (1 standard drink = 0.6 oz pur e alcohol) Sex and Gender Information Value Date Recorded Sex Assigned at Not on file 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 Gender Identity Not on file Sexual Orientation Not on file documented as of this encounter Plan of Treatment Scheduled Procedures Name Priority Associated Diagnoses Date/Ti me COLONOSCOPY Colon cancer screening COLONOSCOPY Colon cancer screening documented as of this encounter Procedures Procedure Name Priority Date/Time Associated Diagnosis Comments CARDIOLOGY DOCUMENT SCAN 08/14/2020 2:55 PM RIP AND GROOVE MACHINE OPERATOR documented in this encounter Results * SCAN - CARDIOLOGY (08/14/2020 2:55 PM RIP AND GROOVE MACHINE OPERATOR) Anatomical Region Laterality Modality Other us Provider Scanning CV CARDIAC SERVICES PROCEDURES Final Result documented in this encounter Visit [...] is from a facility outside [facility] . 02/25/2021 03/19/2021 04/02/2021 3:05 AM CDT COVID: Recovered Comment:Added based on recent COVID infection. 04/02/2021 05/30/2021 07/31/2021 3:[address] documented as of this encounter Care Teams Front Office Representative Relationship Specialty Start Date End Date Pal Russell MD PCP - General 06/08/17 09/04/21 Wendi Hawkins MD [address] [place] [address] PCP - General Internal Medicine 09/05/21 04/27/23 Kelin Collier NP [address] [place] [address] PCP - General Nurse Practitioner 04/28/23 documented as of this encounter
--- OUTSIDE RECORDS SUMMARY | 2024-06-25 13:58 | XMS_ITS | Encounter Summary ---
Author Organization [facility] Address [address] [place] [address] [address] [place] [address] Care Team Providers Care Linseed Oil Press Tender Name Role Phone Pal Russell MD Primary Care Provider [phone] Reason for Visit * Reason Onset Date Comments No Call Made 03/03/2021 admitted Encounter Details Date Type Department Care Team (Late st Contact Info) Description 03/03/2021 Telephone [facility] Accountable Care Organization [address] [place] [phone] Lisa Kovacs MA [address] [place] [phone] No Call Made (admitted) Social History Tobacco Use Types Packs/Day Years Used Date Smoking Tobacco: Never Smokeless Tobacco: Never Alcohol Use Standard Drinks/Week Comments Yes 0 (1 standard drink = 0.6 oz pur e alcohol) PHQ-2 Answer Date Recorded PHQ-2 Total Score (If total score is 3 or more points, staff should administer the PHQ-9) 0 03/04/2021 Sex and Gender Information Value Date Recorded Sex Assigned at Not on file 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 COVID-19 Symptom questionnaire was not completed today, current admit This patient is being disenrolled from the phone-only version of the COVID-19 home monitoring program for the following reason: Admitted We will attempt to re-enroll this patient upon hospital discharge if they are still eligible for the home monitoring program. documented in this encounter Plan of Treatment [...] the result is from a facility outside [facility] . 02/25/2021 03/19/2021 04/02/2021 3:05 AM CDT documented as of this encounter Care Teams Linseed Oil Press Tender Relationship Specialty Start Date End Date Pal Russell MD PCP - General 06/08/17 09/04/21 documented as of this encounter
--- OUTSIDE RECORDS SUMMARY | 2024-06-25 13:58 | XMS_ITS | Encounter Summary ---
Author Organization [facility] Address [address] [place] [address] [address] [place] [address] Care Team Providers Care Cra Officer Name Role Phone Pal Russell MD Primary Care Provider [phone] Reason for Visit * Reason Onset Date Comments Covid-19 Home Monitoring 03/02/2021 daily c all Encounter Details Date Type Department Care Team (Late st Contact Info) Description 03/02/2021 Telephone [facility] Accountable Care Organization [address] [place] [phone] Jayne Page LPN [address] [place] [address] [address] [facility] [place] [address] [place] [address] Covid-19 Home Monitoring (daily call ) Social History Tobacco Use Types Packs/Day Years Used Date Smoking Tobacco: Never Smokeless Tobacco: Never Alcohol Use Standard Drinks/Week Comments Yes 0 (1 standard drink = 0.6 oz pur e alcohol) Sex and Gender Information Value Date Recorded Sex Assigned at Not on file 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 COVID-19 Symptom questionnaire was not completed today, because the patient could not be reached. Next Program Call Due: 03/03 [facility] Day 2 documented in this encounter Plan of Treatment [...] documented as of this encounter Care Teams Cra Officer Relationship Specialty Start Date End Date Pal Russell MD PCP - General 06/08/17 09/04/21 documented as of this encounter
--- OUTSIDE RECORDS SUMMARY | 2024-06-25 13:58 | XMS_ITS | Encounter Summary ---
Author Organization [facility] Address [address] [place] [address] Care Team Providers Care Fibre Technologist Name Role Phone Pal Russell MD Primary Care Provider [phone] Encounter Details Date Type Department Care Team (Latest Contact Info) Description 02/25/2021 7:02 PM CDT - 02/25/2021 9:24 PM CDT Hospital Encounter [facility] [address] [place] [phone] Discharge Disposition: Discharge to home or self care Social History Tobacco Use Types Packs/Day Years Used Date Smoking Tobacco: Never Smokeless Tobacco: Never Alcohol Use Standard Drinks/Week Comments Yes 0 (1 standard drink = 0.6 oz pur e alcohol) Sex and Gender Information Value Date Recorded Sex Assigned at Not on file 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 ?? Non-smoker ??Hx of GA ?? TECHNIQUE: ?? Frontal and lateral radiographic [...] PM T: ??02/25/2021 7:44 PM Report ID: [id number] Reading Location: ??[id number] Procedure Note Claire Goyal MD - 02/25/2021 [...] to the ER . Non-smoker Hx of GA TECHNIQUE: Frontal and lateral radiographic views of [...] Electronically signed by Claire Goyal M.D. BG: BG Report ID: [id number] Reading Location: [place] [address] Fausto Pope MD IMG XR PROCEDURES Final Result documented in this encounter [...] the result is from a facility outside [facility] . 02/25/2021 03/19/2021 04/02/2021 3:05 AM CDT documented as of this encounter Care Teams Fibre Technologist Relationship Specialty Start Date End Date Pal Russell MD PCP - General 06/08/17 09/04/21 documented as of this encounter
--- OUTSIDE RECORDS SUMMARY | 2024-06-25 13:58 | XMS_ITS | Encounter Summary ---
Author Organization [facility] Address [address] [place] [address] [address] [place] [address] Care Team Providers Care Independent Agent Music Education Name Role Phone Pal Russell MD Primary Care Provider [phone] Reason for Visit * Reason Onset Date Comments Covid-19 Home Monitoring 03/01/2021 daily c all Encounter Details Date Type Department Care Team (Late st Contact Info) Description 03/01/2021 Telephone [facility] Accountable Care Organization [address] [place] [phone] Lucinda Claire MA [address] [place] [phone] Covid-19 Home Monitoring (daily call) Social History Tobacco Use Types Packs/Day Years Used Date Smoking Tobacco: Never Smokeless Tobacco: Never Alcohol Use Standard Drinks/Week Comments Yes 0 (1 standard drink = 0.6 oz pur e alcohol) Sex and Gender Information Value Date Recorded Sex Assigned at Not on file 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 COVID-19 Symptom questionnaire was not completed today, because the patient could not be reached. [facility] day 1 Next Program Call Due: 03/02 documented in this encounter Plan of Treatment [...] the result is from a facility outside [facility] . 02/25/2021 03/19/2021 04/02/2021 3:0 5 AM CDT documented as of this encounter Care Teams Independent Agent Music Education Relationship Specialty Start Date End Date Pal Russell MD PCP - General 06/08/17 09/04/21 documented as of this encounter
--- OUTSIDE RECORDS SUMMARY | 2024-06-25 13:59 | XMS_ITS | Encounter Summary ---
Author Organization [facility] Address [address] [place] [address] Phone Care Team Providers Care Value Stream Leader Name Role Phone Pal Russell MD Primary Care Provider [phone] Encounter Details Date Type Department Care Team (Late st Contact Info) Description 01/24/2020 Telephone [facility] [address] [place] [address] [address] Russell MD [address] [id number] Social History Tobacco Use Types Packs/Day Years Used Date Smoking Tobacco: Never Smokeless Tobacco: Never Alcohol Use Standard Drinks/Week Comments Yes 0 (1 standard drink = 0.6 oz pur e alcohol) Sex and Gender Information Value Date Recorded Sex Assigned at Not on file 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 Gender Identity Not on file Sexual Orientation Not on file documented as of this encounter Miscellaneous Notes * Telephone Encounter - Claribel Howell MA - 01/26/2020 9:40 AM CDT Error documented in this encounter Plan of Treatment Scheduled Procedures Name Priority Associated Diagnoses Date/Ti me COLONOSCOPY Colon cancer screening COLONOSCOPY Colon cancer screening documented as of this encounter Visit Diagnoses Not on filedocumented in this encounter Care Teams Value Stream Leader Relationship Specialty Start Date End Date Pal Russell MD PCP - General 06/08/17 09/04/21 documented as of this encounter
--- OUTSIDE RECORDS SUMMARY | 2024-06-25 13:59 | XMS_ITS | Encounter Summary ---
Author Organization [facility] Address [address] [place] [address] Phone Care Team Providers Care Music Therapist Name Role Phone Pal Russell MD Primary Care Provider [phone] Encounter Details Date Type Department Care Team (Late st Contact Info) Description 07/28/2020 Telephone [facility] [address] [facility] [address] [place] [address] Abdon Eisenberg RPSGT Social History Tobacco Use Types Packs/Day Years Used Date Smoking Tobacco: Never Smokeless Tobacco: Never Alcohol Use Standard Drinks/Week Comments Yes 0 (1 standard drink = 0.6 oz pur e alcohol) Sex and Gender Information Value Date Recorded Sex Assigned at Not on file 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 Gender Identity Not on file Sexual Orientation Not on file documented as of this encounter Miscellaneous Notes * Telephone Encounter - Abdon Eisenberg RPSGT - 07/28/2020 5:32 PM TUFTING MACHINE FIXER lvm ING MACHINE FIXER documented in this encounter Plan of Treatment Scheduled Procedures Name Priority Associated Diagnoses Date/Ti me COLONOSCOPY Colon cancer screening COLONOSCOPY Colon cancer screening documented as of this encounter Visit Diagnoses Not on filedocumented in this encounter Care Teams Music Therapist Relationship Specialty Start Date End Date Pal Russell MD PCP - General 06/08/17 09/04/21 documented as of this encounter
--- OUTSIDE RECORDS SUMMARY | 2024-06-25 13:59 | XMS_ITS | Encounter Summary ---
Author Organization [facility] Address [address] [place] [address] Phone Care Team Providers Care Traction Power Engineer Name Role Phone Pal Russell MD Primary Care Provider [phone] Reason for Visit * Reason Comments Hypertension Encounter Details Date Type Department Care Team (Late st Contact Info) Description 02/12/2020 1:20 PM CDT Office Visit [address] [address] Pal Russell MD [id number] [id number] Cough (Primary Dx); Obstructive sleep apnea syndrome in adult; Benign essential HTN; Non-seasonal allergic rhinitis due to pollen Social History Tobacco Use Types Packs/Day Years Used Date Smoking Tobacco: Never Smokeless Tobacco: Never Alcohol Use Standard Drinks/Week Comments Yes 0 (1 standard drink = 0.6 oz pur e alcohol) Sex and Gender Information Value Date Recorded Sex Assigned at Not on file 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 Gender Identity Not on file Sexual Orientation Not on file documented as of this encounter Last Filed Vital Signs Vital Sign Reading Time Taken Comments Blood Pressure 136/98 02/12/2020 1:29 PM CDT Pulse 80 02/12/2020 1:29 PM CDT Temperature 36.9 ??C (98.5 ??F) 02/12/2020 1:29 PM CD T Respiratory Rate - - Oxygen Saturation 95% 02/12/2020 1:29 PM CDT Inhaled Oxygen Concentration - - Weight 94.8 kg (209 lb) 02/12/2020 1:29 PM CDT Height - - Body Mass Index 32.73 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 The swelling is a reaction to allergens in the air. An allergen can be anything that causes an allergic reaction. Allergies to weeds, grass, trees, or mold often cause seasonal allergic rhinitis. Indoor dust mites, cockroaches, pet dander, or mold can also cause allergic rhinitis. Common signs and symptoms include the following: ?? Sneezing ?? Nasal congestion ?? Runny nose ?? Itchy nose, eyes, or mouth ?? Red, watery eyes ?? Postnasal drip (nasal drainage down the back of your throat) ?? Cough or frequent throat clearing ?? Feeling tired or lethargic ?? Dark circles under your eyes Call 911 for the following: ?? You have chest pain or shortness of breath. Seek care immediately if: ?? You have severe pain. ?? You cough up blood. Contact your healthcare provider if: ?? You have a fever. ?? You have ear or sinus pain, or a headache. ?? Your symptoms get worse, even after treatment. ?? You have yellow, green, brown, or bloody mucus coming from your nose. ?? Your nose is bleeding or you have pain inside your nose. ?? You have trouble sleeping because of your symptoms. ?? You have questions or concerns about your condition or care. Treatment: ?? Antihistamines help reduce itching, sneezing, and a runny nose. Some antihistamines can make yousleepy. ?? Nasal steroids help decrease inflammation in your nose. ?? Decongestants help clear your stuffy nose. ?? Immunotherapy may be needed if your symptoms are severe or other treatments do not work. Immunotherapy is used to inject an allergen into your skin. At first, the therapy contains tiny amounts of the allergen. Your healthcare provider will slowly increase the amount of allergen. This may help your body be less sensitive to the allergen and stop reacting to it. You may need immunotherapy for weeks or longer. Manage allergic rhinitis: The best way to manage allergic rhinitis is to avoid allergens that can trigger your symptoms. Any of the following may help decrease your symptoms: ?? Rinse your nose and sinuses with a salt water solution or use a salt water nasal spray. This will help thin the mucus in your nose and rinse away pollen and dirt. It will also help reduce swellingso you can breathe normally. Ask your healthcare provider how often to rinse your nose. ?? Reduce exposure to dust mites. Wash sheets and towels in hot water every week. Cover your pillows and mattresses with allergen-free covers. Limit the number of stuffed animals and soft toys your child has. Wash your child's toys in hot water regularly. Vacuum weekly and use a vacuum hospital cleaner withan air filter. If possible, get rid of carpets and curtains. These collect dust and dust mites. ?? Reduce exposure to pollen. Keep windows and doors closed in your house and car. Stay inside whenair pollution or the pollen count is high. Run your air conditioner on recycle, and change air filters often. Shower and wash your hair before bed every night to rinse away pollen. ?? Reduce exposure to pet dander. If possible, do not keep cats, dogs, birds, or other pets. If youdo keep pets in your home, keep them out of bedrooms and carpeted rooms. Bathe them often. ?? Reduce exposure to mold. Do not spend time in basements. Choose artificial plants instead of live plants. Keep your home's humidity at less than 45%. Do not have ponds or standing water in your home or yard. ?? Do not smoke. Avoid others who smoke. Ask your healthcare provider for information if you currently smoke and need help to quit. Follow up with your healthcare provider as directed: Write down your questions so you remember to ask them during your visits. ?? 2017 [employer] Information is for End User's use only and may not be sold, redistributed or otherwise used for commercial purposes. All illustrations and images included in CareNotes?? are the copyrighted property of [employer] or [employer]. The above information is an environmental health aide only. It is not intended as medical advice for individual conditions or treatments. Talk to your doctor, nurse or pharmacist before following any medical regimen to see if it is safe and effective for you. DASH Eating Plan WHAT YOU NEED TO KNOW: What is the DASH Eating Plan? The DASH (Dietary Approaches to Stop Hypertension) Eating Plan is designed to help prevent or lower high blood pressure. It can also help to lower LDL (bad) cholesterol and decrease your risk of heart disease. The plan is low in sodium, sugar, unhealthy fats, and totalfat. It is high in potassium, calcium, magnesium, and fiber. These nutrients are added when you eatmore fruits, vegetables, and whole grains. How much sodium should I have each day? Your dietitian will tell you how much sodium you should have each day. People with high blood pressure should have 1,500 to 2,300 mg of sodium. How do I limit sodium? ?? Read food labels: Food labels can help you choose foods that are low in sodium. The amount of sodium is listed in milligrams (mg). The % Daily Value (DV) column tells you how much of your daily needs are met by 1 serving of the food for each nutrient listed. Choose foods that have less than 5% of the DV of sodium. These foods are considered low in sodium. Foods that have 20% or more of the DV of sodium are considered high in sodium. Avoid foods that have more than 300 mg of sodium in each serving. Choose foods that say low-sodium, reduced- sodium, or no salt added on the food label. ?? Avoid salt: Do not salt food at the table, and add very little salt to foods during cooking. Useherbs and spices, such as onions, garlic, and salt-free seasonings to add flavor to foods. Try lemon or tangirnaq juice or vinegar to give foods a tart flavor. Use hot peppers or a small amount of hot pepper sauce to add a spicy flavor to foods. ?? Ask about salt substitutes: Ask your healthcare provider if you may use salt substitutes. Some salt substitutes have ingredients that can be harmful if you have certain health conditions. ?? Choose foods carefully at restaurants: Meals from restaurants, especially fast food restaurants,are often high in sodium. Some restaurants have nutrition information that tells you the amount of sodium in their foods. Ask to have your food prepared with less, or no salt. What should I know about fats? ?? Include healthy fats: Examples are unsaturated fats and omega-3 fatty acids. Unsaturated fats are found in soybean, canola, olive, or sunflower oil, and liquid and soft tub margarines. [place]-3 fatty acids are found in fatty fish, such as salmon, tuna, mackerel, and sardines. It is also found in flaxseed oil and ground flaxseed. ?? Avoid unhealthy fats: Do not eat unhealthy fats, such as saturated fats and trans fats. Saturated fats are found in foods that contain fat from animals. Examples are fatty meats, whole milk, butter, cream, and other dairy foods. It is also found in shortening, stick margarine, palm oil, and coconut oil. Trans fats are found in fried foods, crackers, chips, and baked goods made with margarine or shortening. Which foods should I include? With the DASH eating plan, you need to eat a certain number of servings from each food group. This will help you get enough of certain nutrients and limit others. The amount of servings you should eat depends on how many calories you need. Your dietitian can tell you how many calories you need. The number of servings listed next to the food groups below are for people who need about 2,000 calories each day. ?? Grains: 6 to 8 servings (3 of these servings should be whole-grain foods) ?? 1 slice of whole-grain bread ?? 1 ounce of dry cereal ? cup of cooked cereal, pasta, or brown rice ?? Vegetables and fruit: 4 to 5 servings of fruits and 4 to 5 servings of vegetables ?? 1 medium fruit ?? 1 cup of raw leafy vegetable ? cup of frozen, canned (no added salt), or chopped fresh vegetables ? cup of fresh, frozen, dried, or canned fruit (canned in light syrup or fruit juice) ? cup of vegetable or fruit juice ?? Dairy: 2 to 3 servings ?? 1 cup of nonfat (skim) or 1% milk ?? 1?? ounces of fat-free or low-fat, low-sodium cheese ?? 6 ounces of nonfat or low-fat yogurt ?? Lean meat, poultry, and fish: 6 ounces or less ?? Poultry (chicken, turkey) with no skin ?? Fish (especially fatty fish, such as salmon, fresh tuna, or mackerel) ?? Lean beef and pork (loin, round, extra lean hamburger) ?? Egg whites and egg substitutes ?? Nuts, seeds, and legumes: 4 to 5 servings each week ? cup of cooked beans and peas ?? 1?? ounces of unsalted nuts ?? 2 tablespoons of peanut butter or seeds ?? Sweets and added sugars: 5 or less each week ?? 1 tablespoon of sugar, jelly, or jam ? cup of sorbet or gelatin ?? 1 cup of lemonade ?? Fats: 2 to 3 servings each week ?? 1 teaspoon of soft margarine or vegetable oil ?? 1 tablespoon of mayonnaise ?? 2 tablespoons of salad dressing Which foods should I avoid? ?? Grains: ?? Baked goods, such as doughnuts, pastries, cookies, and biscuits (high in fat and sugar) ?? Mixes for cornbread and biscuits, packaged foods, such as bread stuffing, rice and pasta mixes, macaroni and cheese, and instant cereals (high in sodium) ?? Fruit and vegetables: ?? Regular, canned vegetables (high in sodium) ?? Sauerkraut, pickled vegetables, and other foods prepared in brine (high in sodium) ?? Fried vegetables or vegetables in butter or high-fat sauces ?? Fruit in cream or butter sauce (high in fat) ?? Dairy: ?? Whole milk, 2% milk, and cream (high in fat) ?? Regular cheese and processed cheese (high in fat and sodium) ?? Meats and protein foods: ?? Smoked or cured meat, such as corned beef, sierra, ham, hot dogs, and sausage (high in fat and sodium) ?? Canned beans and canned meats or spreads, such as potted meats, sardines, anchovies, and imitation seafood (high in sodium) ?? Deli or lunch meats, such as bologna, ham, turkey, and roast beef (high in sodium) ?? High-fat meat (T-bone steak, regular hamburger, and ribs) ?? Whole eggs and egg yolks (high in fat) ?? Other: ?? Seasonings made with salt, such as garlic salt, celery salt, onion salt, seasoned salt, meat tenderizers, and monosodium glutamate (MSG) ?? Miso soup and canned or dried soup mixes (high in sodium) ?? Regular soy sauce, barbecue sauce, teriyaki sauce, steak sauce, Worcestershire sauce, and most flavored vinegars (high in sodium) ?? Regular condiments, such as mustard, ketchup, and salad dressings (high in sodium) ?? Gravy and sauces, such as Denis or cheese sauces (high in sodium and fat) ?? Drinks high in sugar, such as soda or fruit drinks ?? Snack foods, such as salted chips, popcorn, pretzels, pork rinds, salted crackers, and salted nuts ?? Frozen foods, such as dinners, entrees, vegetables with sauces, and breaded meats (high in sodium) What other guidelines should I follow? ?? Maintain a healthy weight: Your risk of heart disease is higher if you are overweight. Your healthcare provider may suggest that you lose weight if you are overweight. You can lose weight by eating fewer calories and foods that have added sugars and fat. The DASH meal plan can help you do this. Decrease calories by eating smaller portions at each meal and fewer snacks. Ask your healthcare provider for more information about how to lose weight. ?? Exercise regularly: Regular exercise can help you reach or maintain a healthy weight. Regular exercise can also help decrease your blood pressure and improve your cholesterol levels. Get 30 minutes or more of moderate exercise each day of the week. To lose weight, get at least 60 minutes of exercise. Talk to your healthcare provider about the best exercise program for you. ?? Limit alcohol: Women should limit alcohol to 1 drink a day. Men should limit alcohol to 2 drinksa day. A drink of alcohol is 12 ounces of beer, 5 ounces of wine, or 1?? ounces of liquor. Where can I find more information? ?? [facility] [address] [address] [place] [address] Phone: Web Address: http://www.nhlbi.nih.gov/health/infoctr/index.htm CARE AGREEMENT: You have the right to help plan your care. Discuss treatment options with your caregivers to decidewhat care you want to receive. You always have the right to refuse treatment. The above informationis an environmental health aide only. It is not intended as medical advice for individual conditions or treatments. Talk to your doctor, nurse or pharmacist before following any medical regimen to see if it is safe and effective for you. ?? 2016 [employer]. Information is for End User's use only and may not be sold, redistributed or otherwise used for commercial purposes. All illustrations and images included in CareNotes?? are the copyrighted property of [employer]. or [employer]. documented in this encounter Ordered Prescriptions Prescription Sig Dispense Quantity Refills Last Filled Start Date End Date triamcinolone (NASACORT) 55 mcg nasal inhalerIndications :Allergic Rhinitis Administer 2 sprays into each nostril daily 16.9 mL 3 02/12/2020 1 montelukast (SINGULAIR) 10 mg tabletIndications: Seasonal Allergic Rhinitis Take 1 tablet (10 mg total) by mouth nightly 30 tablet 11 02/12/2020 1 metoprolol XL (TOPROL-XL) 50 mg extended release tabletIndications: hypertension Take 1 tablet (50 mg total) by mouth daily 30 tablet 11 02/12/2020 1 documented in this encounter Progress Notes * Pal Russell MD - 02/12/2020 1:20 PM CDT Images from the original note were not included. SUBJECTIVE: Sean Ritter is a 59 y.o. member presenting for a [facility] visit for HTN and the cough Today we focussed on the following concerns: 1. C/o cough x 6mo, takes allergy med and cough meds 2. It is hs 3. Feels frontal sinus pressure and lots of drainage. He says there is nausea but then says no nausea so I cannot sort out. Says some good appetite but weight goes up and down 4. Says there is reduced energy these day in very general terms. Does report tired from working a lot. 5. Suggests it is a mold problem but then away from it and still feels poorly 6. No CP but the cough goes on and on 7. We did stop lisinopril and he now is on metop and norvasc and DOES say the cough is improving Current Outpatient Medications Medication Sig Dispense Refill ??? amLODIPine (NORVASC) 5 mg tablet Take 1 tablet (5 mg total) by mouth daily 90 tablet 3 ??? aspirin 325 mg tablet Take 325 mg by mouth daily ??? celecoxib (CeleBREX) 200 mg capsule Take 1 capsule (200 mg total) by mouth 2 (two) times a day 60 capsule 11 ??? cyclobenzaprine (FLEXERIL) 10 mg tablet Take 1 tablet by mouth three times daily as needed for muscle spasm 30 tablet 0 ??? metoprolol XL (TOPROL-XL) 50 mg extended release tablet Take 1 tablet (50 mg total) by mouth daily 30 tablet 11 ??? montelukast (SINGULAIR) 10 mg tablet Take 1 tablet (10 mg total) by mouth nightly 30 tablet 11 ??? pravastatin (PRAVACHOL) 10 mg tablet Take 1 tablet by mouth once daily 90 tablet 0 ??? triamcinolone (NASACORT) 55 mcg nasal inhaler Administer 2 sprays into each nostril daily 16.9 mL 3 No current facility-administered medications for this visit. Allergies: Patient has no known allergies. Current Outpatient Medications: ??? amLODIPine (NORVASC) 5 mg tablet, Take 1 tablet (5 mg total) by mouth daily, Disp: 90 tablet, Rfl: 3 ??? aspirin 325 mg tablet, Take 325 mg by mouth daily, Disp: , Rfl: ??? celecoxib (CeleBREX) 200 mg capsule, Take 1 capsule (200 mg total) by mouth 2 (two) times a day, Disp: 60 capsule, Rfl: 11 ??? cyclobenzaprine (FLEXERIL) 10 mg tablet, Take 1 tablet by mouth three times daily as needed formuscle spasm, Disp: 30 tablet, Rfl: 0 ??? metoprolol XL (TOPROL-XL) 50 mg extended release tablet, Take 1 tablet (50 mg total) by mouth daily, Disp: 30 tablet, Rfl: 11 ??? montelukast (SINGULAIR) 10 mg tablet, Take 1 tablet (10 mg total) by mouth nightly, Disp: 30 tablet, Rfl: 11 ??? pravastatin (PRAVACHOL) 10 mg tablet, Take 1 tablet by mouth once daily, Disp: 90 tablet, Rfl: 0 ??? triamcinolone (NASACORT) 55 mcg nasal inhaler, Administer 2 sprays into each nostril daily, Disp: 16.9 mL, Rfl: 3 Patient Active Problem List Diagnosis ??? Transient global amnesia ??? Facial pain ??? Intermittent claudication (CMS/HCC) ??? Daytime somnolence ??? Cough ??? Cervical radiculopathy ??? Hyperlipidemia ??? Obstructive sleep apnea syndrome in adult ??? Increased body mass index (BMI) ??? Sensation of chest tightness ??? Obesity with body mass index 30 or greater ??? Anaclitic depression ??? Chronic coronary artery disease ??? Chronic low back pain ??? Exercise-induced angina (CMS/HCC) ??? Left ventricular diastolic dysfunction ??? Cough ??? Benign essential HTN ??? Allergic rhinitis family history includes Arthritis in his father and mother; Heart attack in his brother; Heart disease in his brother and mother; Hypertension in his mother. reports that he has never smoked. He has never used smokeless tobacco. He reports current alcohol use. He reports that he does not use drugs. Review of Systems HENT: Positive for congestion, rhinorrhea, sinus pressure and sinus pain. Respiratory: Positive for cough. Negative for shortness of breath and wheezing. Cardiovascular: Negative. Gastrointestinal: Negative. OBJECTIVE: BP 136/98 Pulse 80 Temp 36.9 ??C (98.5 ??F) Wt 94.8 kg (209 lb) SpO2 95% BMI 32.73 kg/m?? Physical Exam Cardiovascular: Rate and Rhythm: Normal rate and regular rhythm. Pulses: Normal pulses. Heart sounds: Normal heart sounds. Pulmonary: Effort: Pulmonary effort is normal. Breath sounds: Normal breath sounds. Abdominal: General: Abdomen is flat. Bowel sounds are normal. Palpations: Abdomen is soft. RECENT RESULTS: No results found for this or any previous visit (from the past 1008 hour(s)). Assessment/Plan Problem List Respiratory Cough - Primary (Chronic) Overview I am suspicious the move to the new house has triggered a reaction Also the BYRON-I could be suspect Obstructive sleep apnea syndrome in adult (Chronic) Overview Description: obstructive and central treated with APAP 4-4, but non compliance an issue so I beggedhim to get back to sleep center in [facility] Current Assessment & Plan Never got back in follow up for the CPAP, and reprots not tolerating This now long standing untreated condition could be behind a lot of the excessive fatigue and the elevation of the BP Allergic rhinitis Overview Seems primarily sinus mediated and could be strongly contributing to cough singulair +flonase Current Assessment & Plan Add steroid nasal inhaler Circulatory Benign essential HTN Current Assessment & Plan We are giving a trial of metop and norvasc since 01/29 to see if this helps the cough and it seems to be helping fro here we will go to metoprolol XL 50 Relevant Medications metoprolol XL (TOPROL-XL) 50 mg extended release tablet Orders Placed This Encounter ??? metoprolol XL (TOPROL-XL) 50 mg extended release tablet ??? montelukast (SINGULAIR) 10 mg tablet ??? triamcinolone (NASACORT) 55 mcg nasal inhaler Pollo Russell MD documented in this encounter Miscellaneous Notes * Assessment & Plan Note - Pal Russell MD - 02/12/2020 2:07 PM CDT Associated Problem(s): Allergic rhinitis Add steroid nasal inhaler * Assessment & Plan Note - Pal Russell MD - 02/12/2020 2:00 PM CDT Associated Problem(s): Benign essential HTN We are giving a trial of metop and norvasc since 01/29 to see if this helps the cough and it seems to be helping fro here we will go to metoprolol XL 50 * Assessment & Plan Note - Pal Russell MD - 02/12/2020 1:58 PM CDT Associated Problem(s): Obstructive sleep apnea syndrome in adult Never got back in follow up for the CPAP, and reprots not tolerating This now long standing untreated condition could be behind a lot of the excessive fatigue and the elevation of the BP documented in this encounter Plan of Treatment Scheduled Procedures Name Priority Associated Diagnoses Date/Ti me COLONOSCOPY Colon cancer screening COLONOSCOPY Colon cancer screening documented as of this encounter Visit Diagnoses Diagnosis Cough- Primary Obstructive sleep apnea syndrome in adult Benign essential HTN Non-seasonal allergic rhinitis due to pollen documented in this encounter Discontinued Medications Medication Sig Discontinue Reason Start Date End Da te lisinopriL (PRINIVIL,ZESTRIL) 10 mg tablet Take 1 tablet by mouth once daily 01/03/2020 02/12/2020 melatonin-lemon balm leaf extr 10-1 mg tablet 2 tab daily 01/30/2016 020 metoprolol XL (TOPROL-XL) 25 mg extended release tablet Take 1 tablet (25 mg total) by mouth daily 01/30/2020 02/12/2020 montelukast (SINGULAIR) 10 mg tablet Take 1 tablet (10 mg total) by mouth nightly Reorder 10/18/2019 02/12/2020 documented as of this encounter Care Teams Traction Power Engineer Relationship Specialty Start Date End Date Pal Russell MD PCP - General 06/08/17 09/04/21 documented as of this encounter
--- OUTSIDE RECORDS SUMMARY | 2024-06-25 13:59 | XMS_ITS | Encounter Summary ---
Author Organization [facility] Address [address] [place] [address] Phone Care Team Providers Care Speech Correction Assistant Name Role Phone Pal Russell MD Primary Care Provider [phone] Reason for Visit * Reason Comments Hypertension Encounter Details Date Type Department Care Team (Late st Contact Info) Description 07/10/2020 10:40 AM FISH CHECKER Office Visit [facility] [address] [place] [address] Pal Russell MD [address] [id number] Obstructive sleep apnea syndrome in adult (Primary Dx); Benign essential HTN; Traumatic incomplete tear of left rotator cuff, initial encounter Social History Tobacco Use Types Packs/Day Years Used Date Smoking Tobacco: Never Smokeless Tobacco: Never Alcohol Use Standard Drinks/Week Comments Yes 0 (1 standard drink = 0.6 oz pur e alcohol) Sex and Gender Information Value Date Recorded Sex Assigned at Not on file Legal Sex Male 2:28 AM FISH CHECKER Gender Identity Not on file Sexual Orientation Not on file documented as of this encounter Last Filed Vital Signs Vital Sign Reading Time Taken Comments Blood Pressure 124/90 07/10/2020 10:29 AM FISH CHECKER Pulse 80 07/10/2020 10:29 AM FISH CHECKER Temperature 36.3 ??C (97.4 ??F) 07/10/2020 10:[address] Respiratory Rate - - Oxygen Saturation 96% 07/10/2020 10:29 AM FISH CHECKER Inhaled Oxygen Concentration - - Weight 100.2 kg (221 lb) 07/10/2020 10:29 AM FISH CHECKER Height - - Body Mass Index 34.61 07/27/2018 2:08 PM FISH CHECKER documented in this encounter Patient Instructions * Patient Instructions* Pal Russell MD - 07/10/2020 10:40 AM FISH CHECKER Images from the original note were not included. Patient Education Hypertension STUDENT SUPPORT COUNSELOR: Hypertension is high blood pressure (BP). Your BP is the force of your blood moving against the strong of your arteries. Normal BP is less than 120/80. Prehypertension is between 120/80 and 139/89. Hypertension is 140/90 or higher. Hypertension causes your BP to get so high that your heart has to work much harder than normal. This can damage your heart. You can control hypertension with a healthy lifestyle or medicines. A controlled blood pressure helps protect your organs, such as your heart, lungs, brain, and kidneys. Common symptoms include the following: ?? Headache ?? Blurred vision ?? Chest pain ?? Dizziness or weakness ?? Trouble breathing ?? Nosebleeds Call 911 for any of the following: ?? You have discomfort in your chest that feels like squeezing, pressure, fullness, or pain. ?? You become confused or have difficulty speaking. ?? You suddenly feel lightheaded or have trouble breathing. ?? You have pain or discomfort in your back, neck, jaw, stomach, or arm. Seek care immediately if: ?? You have a severe headache or vision loss. ?? You have weakness in an arm or leg. Contact your healthcare provider if: ?? You feel faint, dizzy, confused, or drowsy. ?? You have been taking your BP medicine and your BP is still higher than your healthcare provider says it should be. ?? You have questions or concerns about your condition or care. Treatment for hypertension may include medicine to lower your BP and lower your cholesterol level. A low cholesterol level helps prevent heart disease and makes it easier to control your blood pressure. You may also need to make lifestyle changes. Take your medicine exactly as directed. Manage hypertension: Talk with your healthcare provider about these and other ways to manage hypertension: ?? Check your BP at home. Sit and rest for 5 minutes before you take your BP. Extend your arm and support it on a flat surface. Your arm should be at the same level as your heart. Follow the directions that came with your BP monitor. If possible, take at least 2 BP readings each time. Take your BP at least twice a day at the same times each day, such as morning and evening. Keep a record of your BP readings and bring it to your follow-up visits. Ask your healthcare provider what your BP should be. ?? Limit sodium (salt) as directed. Too much sodium can affect your fluid balance. Check labels to find low-sodium or ng-hwsy-frfog foods. Some low-sodium foods use potassium salts for flavor. Too much potassium can also cause health problems. Your healthcare provider will tell you how much sodium and potassium are safe for you to have in a day. He or she may recommend that you limit sodium to 2,300 mg a day. ?? Follow the meal plan recommended by your healthcare provider. A dietitian or your provider can give you more information on low-sodium plans or the DASH (Dietary Approaches to Stop Hypertension) eating plan. The DASH plan is low in sodium, unhealthy fats, and total fat. It is high in potassium, calcium, and fiber. ?? Exercise to maintain a healthy weight. Exercise at least 30 minutes per day, on most days of theweek. This will help decrease your blood pressure. Ask your healthcare provider about the best exercise plan for you. ?? Decrease stress. This may help lower your BP. Learn ways to relax, such as deep breathing or listening to music. ?? Limit alcohol. Women should limit alcohol to 1 drink a day. Men should limit alcohol to 2 drinksa day. A drink of alcohol is 12 ounces of beer, 5 ounces of wine, or 1?? ounces of liquor. ?? Do not smoke. Nicotine and other chemicals in cigarettes and cigars can increase your BP and also cause lung damage. Ask your healthcare provider for information if you currently smoke and need help to quit. E-cigarettes or smokeless tobacco still contain nicotine. Talk to your healthcare provider before you use these products. ?? Manage any other health conditions you have. Health conditions such as diabetes can increase your risk for hypertension. Follow your healthcare provider's instructions and take all your medicines as directed. Follow up with your healthcare provider as directed: You will need to return to have your BP checked and to have other lab tests done. Write down your questions so you remember to ask them during your visits. ?? 2017 [employer] Information is for End User's use only and may not be sold, redistributed or otherwise used for commercial purposes. All illustrations and images included in CareNotes?? are the copyrighted property of [employer]. or [employer]. The above information is an restrooms or lounges maid only. It is not intended as medical advice for individual conditions or treatments. Talk to your doctor, nurse or pharmacist before following any medical regimen to see if it is safe and effective for you. CHECKER documented in this encounter Progress Notes * Pal Russell MD - 07/10/2020 10:40 AM CST Images from the original note were not included. SUBJECTIVE: Sean Ritter is a 59 y.o. member presenting for a [facility] visit for HTN Today we focussed on the following concerns: 1. We went way up on both amlodipine and toprol 2. The nausea is gone and the MCKINNON is less so but still some am headache and fatigue 3. Plans a re-look at the [facility] F on 07/22 4. The shoulder is 2/3 5. Is working on the diet, discussed the carbs and the DASH Allergies: Patient has no known allergies. Current Outpatient Medications: ??? amLODIPine (NORVASC) 10 mg tablet, Take [...] ??? Traumatic tear of left rotator cuff family history includes Arthritis in his father and mother; Heart attack in his brother; Heart disease in his brother and mother; Hypertension in his mother. reports that he has never smoked. He has never used smokeless tobacco. He reports current alcohol use. He reports that he does not use drugs. Review of Systems Constitutional: Negative. Respiratory: Positive for apnea. Cardiovascular: Negative. Gastrointestinal: Negative. Genitourinary: Negative. OBJECTIVE: BP 124/90 Pulse 80 Temp 36.3 ??C (97.4 ??F) Wt 100.2 kg (221 lb) SpO2 96% BMI 34.61 kg/m?? Physical Exam Constitutional: Appearance: He is obese. Cardiovascular: Rate and Rhythm: Normal rate and regular rhythm. Pulses: Normal pulses. Heart sounds: Normal heart sounds. Pulmonary: Effort: Pulmonary effort is normal. Breath sounds: Normal breath sounds. Abdominal: General: Abdomen is flat. Bowel sounds are normal. Palpations: Abdomen is soft. RECENT RESULTS: No results found for this or any previous visit (from the past 1008 hour(s)). Assessment/Plan Problem List Respiratory Obstructive sleep apnea syndrome in adult - Primary (Chronic) Overview Description: obstructive and central treated with APAP 4-4, but non compliance an issue so I beggedhim to get back to sleep center in [facility] Current Assessment & Plan Await repeat analysis 07/22 Circulatory Benign essential HTN Current Assessment & Plan We saw a huge spike RIVKA and we increased both meds and he tolerates and they are working. Because he is getting a sleep eval and if Rx started, the BP willlikely further decrease so no increase in meds, he will con to check BP at [facility] Musculoskeletal Traumatic tear of left rotator cuff Overview Positive lift off and Neer Current Assessment & Plan Still symptomatic and has a shoulder eval planned 2 No orders of the defined types were placed in this encounter. Pollo Russell MD CHECKER documented in this encounter Miscellaneous Notes * Assessment & Plan Note - Pal Russell MD - 07/10/2020 11:00 AM FISH CHECKER Associated Problem(s): Benign essential HTN We saw a huge spike RIVKA and we increased both meds and he tolerates and they are working. Because he is getting a sleep eval and if Rx started, the BP willlikely further decrease so no increase in meds, he will con to check BP at [facility] CHECKER * Assessment & Plan Note - Pal Russell MD - 07/10/2020 10:59 AM FISH CHECKER Associated Problem(s): Traumatic tear of left rotator cuff Still symptomatic and has a shoulder eval planned 23 CHECKER * Assessment & Plan Note - Pal Russell MD - 07/10/2020 10:59 AM FISH CHECKER Associated Problem(s): Obstructive sleep apnea syndrome in adult Await repeat analysis 07/22 CHECKER documented in this encounter Plan of Treatment Scheduled Procedures Name Priority Associated Diagnoses Date/Ti me COLONOSCOPY Colon cancer screening COLONOSCOPY Colon cancer screening documented as of this encounter Visit Diagnoses Diagnosis Obstructive sleep apnea syndrome in adult- Primary Benign essential HTN Traumatic incomplete tear of left rotator cuff, initial encounter documented in this encounter Care Teams Speech Correction Assistant Relationship Specialty Start Date End Date Pal Russell MD PCP - General 06/08/17 09/04/21 documented as of this encounter
--- OUTSIDE RECORDS SUMMARY | 2024-06-25 13:59 | XMS_ITS | Encounter Summary ---
Author Organization [facility] Address [address] [place] [address] Phone Care Team Providers Care Freight Booker Name Role Phone Pal Russell MD Primary Care Provider Encounter Details Date Type Department Care Team (Late st Contact Info) Description 03/14/2020 Telephone [facility] [address] [place] [address] Pal Russell MD [address] [phone] Social History Tobacco Use Types Packs/Day Years Used Date Smoking Tobacco: Never Smokeless Tobacco: Never Alcohol Use Standard Drinks/Week Comments Yes 0 (1 standard drink = 0.6 oz pur e alcohol) Sex and Gender Information Value Date Recorded Sex Assigned at Not on file Legal Sex Male 2:28 AM EMERGENCY ROOM CLERK Gender Identity Not on file Sexual Orientation Not on file documented as of this encounter Miscellaneous Notes * Telephone Encounter - Claribel Howell MA - 03/14/2020 8:11 AM CDT Pt said he will Fax over BP documented in this encounter Plan of Treatment Scheduled Procedures Name Priority Associated Diagnoses Date/Ti me COLONOSCOPY Colon cancer screening COLONOSCOPY Colon cancer screening documented as of this encounter Visit Diagnoses Not on filedocumented in this encounter Care Teams Freight Booker Relationship Specialty Start Date End Date Pal Russell MD PCP - General 06/08/17 09/04/21 documented as of this encounter
--- OUTSIDE RECORDS SUMMARY | 2024-06-25 13:59 | XMS_ITS | Encounter Summary ---
Author Organization [facility] Address [address] [place] [address] Phone Care Team Providers Care Canvas Cutter Name Role Phone Pal Russell MD Primary Care Provider [phone] Encounter Details Date Type Department Care Team (Late st Contact Info) Description 07/04/[address] [facility] [address] [place] [address] Pal Russell MD [address] [address] Social History Tobacco Use Types Packs/Day Years Used Date Smoking Tobacco: Never Smokeless Tobacco: Never Alcohol Use Standard Drinks/Week Comments Yes 0 (1 standard drink = 0.6 oz pur e alcohol) Sex and Gender Information Value Date Recorded Sex Assigned at Not on file Legal Sex Male 2:28 AM SURGICAL BRACE MAKER Gender Identity Not on file Sexual Orientation Not on file documented as of this encounter Plan of Treatment Scheduled Procedures Name Priority Associated Diagnoses Date/Ti me COLONOSCOPY Colon cancer screening COLONOSCOPY Colon cancer screening documented as of this encounter Visit Diagnoses Not on filedocumented in this encounter Care Teams Canvas Cutter Relationship Specialty Start Date End Date Pal Russell MD PCP - General 06/08/17 09/04/21 documented as of this encounter
--- OUTSIDE RECORDS SUMMARY | 2024-06-25 13:59 | XMS_ITS | Encounter Summary ---
Author Organization [facility] Address [address] [place] [address] Phone Care Team Providers Care Hospital Aide Name Role Phone Pal Russell MD Primary Care Provider [phone] Encounter Details Date Type Department Care Team (Late st Contact Info) Description 07/02/[address] [facility] [address] [place] [address] Pal Russell MD [address] [phone] Social History Tobacco Use Types Packs/Day Years Used Date Smoking Tobacco: Never Smokeless Tobacco: Never Alcohol Use Standard Drinks/Week Comments Yes 0 (1 standard drink = 0.6 oz pur e alcohol) Sex and Gender Information Value Date Recorded Sex Assigned at Not on file Legal Sex Male 2:28 AM PRODUCTION REPAIRER Gender Identity Not on file Sexual Orientation Not on file documented as of this encounter Miscellaneous Notes * Telephone Encounter - Claribel Howell MA - 07/04/2020 11:20 AM CST Error UCTION REPAIRER documented in this encounter Plan of Treatment Scheduled Procedures Name Priority Associated Diagnoses Date/Ti me COLONOSCOPY Colon cancer screening COLONOSCOPY Colon cancer screening documented as of this encounter Visit Diagnoses Not on filedocumented in this encounter Care Teams Hospital Aide Relationship Specialty Start Date End Date Pal Russell MD PCP - General 06/08/17 09/04/21 documented as of this encounter
--- OUTSIDE RECORDS SUMMARY | 2024-06-25 13:59 | XMS_ITS | Encounter Summary ---
Author Organization [facility] Address [address] [place] [address] Phone Care Team Providers Care Dialysis Patient Care Technician Name Role Phone Pal Russell MD Primary Care Provider [phone] Encounter Details Date Type Department Care Team (Late st Contact Info) Description 07/04/2020 Telephone [facility] [address] [place] [address] Pla Russell MD [address] [phone] Social History Tobacco Use Types Packs/Day Years Used Date Smoking Tobacco: Never Smokeless Tobacco: Never Alcohol Use Standard Drinks/Week Comments Yes 0 (1 standard drink = 0.6 oz pur e alcohol) Sex and Gender Information Value Date Recorded Sex Assigned at Not on file Legal Sex Male 2:28 AM RN PALLIATIVE Gender Identity Not on file Sexual Orientation Not on file documented as of this encounter Miscellaneous Notes * Telephone Encounter - Claribel Howell MA - 07/05/2020 8:27 AM CST Thank you Will try to call again PALLIATIVE * Telephone Encounter - Pal Russell MD - 07/04/2020 2:03 PM CST I wrote a letter! PALLIATIVE * Telephone Encounter - Claribel Howell MA - 07/04/2020 10:45 AM CST Have called pt to get his BP's cant leave a voicemail because not set up PALLIATIVE documented in this encounter Plan of Treatment Scheduled Procedures Name Priority Associated Diagnoses Date/Ti me COLONOSCOPY Colon cancer screening COLONOSCOPY Colon cancer screening documented as of this encounter Visit Diagnoses Not on filedocumented in this encounter Care Teams Dialysis Patient Care Technician Relationship Specialty Start Date End Date Pal Russell MD PCP - General 06/08/17 09/04/21 documented as of this encounter
--- OUTSIDE RECORDS SUMMARY | 2024-06-25 13:59 | XMS_ITS | Encounter Summary ---
Author Organization [facility] Address [address] [place] [address] Phone Care Team Providers Care Skidway Worker Name Role Phone Pal Russell MD Primary Care Provider [phone] Encounter Details Date Type Department Care Team (Late st Contact Info) Description 07/26/2020 Telephone [facility] [address] [place] [address] Abdon Eisenberg, ALYSON Social History Tobacco Use Types Packs/Day Years Used Date Smoking Tobacco: Never Smokeless Tobacco: Never Alcohol Use Standard Drinks/Week Comments Yes 0 (1 standard drink = 0.6 oz pur e alcohol) Sex and Gender Information Value Date Recorded Sex Assigned at Not on file Legal Sex Male 2:28 AM ARTIFICIAL FLOWERS DYER Gender Identity Not on file Sexual Orientation Not on file documented as of this encounter Miscellaneous Notes * Telephone Encounter - Abdon Eisenberg RPSGT - 07/26/2020 2:49 PM ARTIFICIAL FLOWERS DYER Called patient. Was able to get on schedule for covid testing today. Patient is unsure if he can make it. I will check tomorrow and see if test complete. If not, I told patient I would call him. FICIAL FLOWERS DYER documented in this encounter Plan of Treatment Scheduled Procedures Name Priority Associated Diagnoses Date/Ti me COLONOSCOPY Colon cancer screening COLONOSCOPY Colon cancer screening documented as of this encounter Visit Diagnoses Not on filedocumented in this encounter Care Teams Skidway Worker Relationship Specialty Start Date End Date Pal Russell MD PCP - General 06/08/17 09/04/21 documented as of this encounter
--- OUTSIDE RECORDS SUMMARY | 2024-06-25 13:59 | XMS_ITS | Encounter Summary ---
Author Organization [facility] Address [address] [place] [address] Phone Care Team Providers Care Pharmacy Clinical Specialist Name Role Phone Pal Russell MD Primary Care Provider [phone] Reason for Visit * Reason Comments Consult Sleep Apnea * Consultation (Routine) - Closed Specialty Diagnoses / Procedures Referred By Massimo t Referred To Contact Sleep Medicine Diagnoses Sleep apnea, unspecified type Pal Russell MD Phone: tel: fax: [facility] (All Locations) Referral ID Status Reason Start Date Expiration Date V isits Requested Visits Authorized [id number] Closed Specialty Services Required 06/27/2020 07/27/2021 12 12 Encounter Details Date Type Department Care Team (Late st Contact Info) Description 07/22/2020 10:00 AM CHALK MACHINE OPERATOR Office Visit [facility] Neuro Sleep [address] [facility] 6th [address] [place] [id number] Hany Ch PA [address] [place] [address] Snoring (Primary Dx); Sleep apnea, unspecified type; Excessive daytime sleepiness; Class 1 obesity due to excess calories with body mass index (BMI) of 34.0 to 34.9 in adult, unspecified whether serious comorbidity present Social History Tobacco Use Types Packs/Day Years Used Date Smoking Tobacco: Never Smokeless Tobacco: Never Alcohol Use Standard Drinks/Week Comments Yes 0 (1 standard drink = 0.6 oz pur e alcohol) Sex and Gender Information Value Date Recorded Sex Assigned at Not on file Legal Sex Male 2:28 AM CHALK MACHINE OPERATOR Gender Identity Not on file Sexual Orientation Not on file documented as of this encounter Last Filed Vital Signs Vital Sign Reading Time Taken Comments Blood Pressure 133/80 07/22/2020 9:38 AM CHALK MACHINE OPERATOR Pulse 66 07/22/2020 9:38 AM CHALK MACHINE OPERATOR Temperature 36.1 ??C (97 ??F) 07/22/2020 9:38 AM CHALK MACHINE OPERATOR Respiratory Rate - - Oxygen Saturation 95% 07/22/2020 9:38 AM CHALK MACHINE OPERATOR Inhaled Oxygen Concentration - - Weight 100.7 kg (222 lb) 07/22/2020 9:38 AM CHALK MACHINE OPERATOR Height - - Body Mass Index 34.77 07/27/2018 2:08 PM CHALK MACHINE OPERATOR documented in this encounter Ordered Prescriptions Prescription Sig Dispense Quantity Refills Last Filled Start Date End Date traZODone (DESYREL) 50 mg tabletIndications: insomnia associated with depression Take 1 tablet (50 mg total) by mouth nightly as needed for sleep 30 tablet 3 07/22/2020 2 documented in this encounter Progress Notes * Hany Ch, VASYL - 07/22/2020 10:00 AM CST CC: here for sleep f/u HPI: Sean Ritter is a 59 y.o. male with a history of transient global amnesia, CAD s/p old HI, LV diastolic dysfunction, HTN, headache, chronic low [...] Sleepiness has not affected work or driving. El[place] Sleepiness Scale (ESS) today is 10/24 which indicates abnormally high degree of sleepiness Personal Hx: Social History Tobacco Use Smoking Status Never Smoker Smokeless Tobacco Never Used PMH: Past Medical History: Diagnosis Date ??? Arthritis ??? Gout ??? Headache ??? Old myocardial infarction History of non-ST elevation myocardial infarction (NSTEMI) - (Added by TW Conv) PSH: Past Surgical History: Procedure Laterality Date ??? BACK SURGERY ??? GA APPENDECTOMY Appendectomy - (Added by Conv) Family Hx: Family History Problem Relation Age of Onset ??? Heart attack Brother Family history of heart attack - (Added by Conv) ??? Heart disease Brother ??? Heart disease Mother ??? Arthritis Mother ??? Hypertension Mother ??? Arthritis Father Allergies: No Known Allergies Current Meds: Current Outpatient Medications Medication Sig Dispense Refill ??? amLODIPine (NORVASC) 10 mg tablet Take [...] 30 tablet 0 ??? metoprolol XL (TOPROL-XL) 100 mg [...] into each nostril daily 16.9 mL 3 ??? traZODone (DESYREL) 50 mg tablet Take [...] Positive for headaches. Physical Exam: Vitals BP 133/80 (BP Location: Right arm, Patient Position: Sitting) Pulse 66 Temp 36.1 ??C (97 ??F) Wt 100.7 kg (222 lb) SpO2 95% BMI 34.77 kg/m?? Physical Exam Constitutional: Appearance: He is [...] Judgment normal. Assessment and Plan: LUIS F Snoring EDS CAD This patient is a 59 year old male with a history of transient global amnesia, CAD (last LVEF 2016 52%), HTN, headache, chronic low back pain, cervical [...] he may not be an appropriate candidate. He is open to trying to trying PAP therapy again with a new interface other than a full face mask and will require repeat testing to see if centrals are still present and/or what the optimal pressure on PAP therapy is. I suspect that some of his claustrophobia may have been 2/2 the very low pressure of 4 cwp. - Sleep study to assess for LUIS F/CSA given the signs and symptoms detailed above. This will be performed as a split night PSG. - No driving if sleepy was stressed to the patient - Our office will call the patient with results and discuss plan of care - f/u will be determined after sleep study results Follow Up: Return for will determine after sleep study. Closing Thank you for allowing us to participate in Sean's care. Please do not hesitate to contact us should you have further questions K MACHINE OPERATOR documented in this encounter Plan of Treatment Scheduled Procedures Name Priority Associated Diagnoses Date/Ti me COLONOSCOPY Colon cancer screening COLONOSCOPY Colon cancer screening documented as of this encounter Visit Diagnoses Diagnosis Snoring- Primary Other dyspnea and respiratory abnormality Sleep apnea, unspecified type Excessive daytime sleepiness Class 1 obesity due to excess calories with body mass index (BMI) of 34.0 to 34.9 in adult, unspecified whether serious comorbidity present documented in this encounter Orders Outpatient Referral Count Last Ordered Date Fir st Ordered Date AMB REFERRAL TO SLEEP MEDICINE 1 07/22/2020 documented in this encounter Care Teams Pharmacy Clinical Specialist Relationship Specialty Start Date End Date Pal Russell MD PCP - General 06/08/17 09/04/21 documented as of this encounter
--- OUTSIDE RECORDS SUMMARY | 2024-06-25 13:59 | XMS_ITS | Encounter Summary ---
Author Organization [facility] Healthcare Address [address] [place] [address] Care Team Providers Care Mushroom Cultivator Name Role Phone Pal Russell MD Primary Care Provider [phone] Reason for Referral * Diagnostic Imaging (Routine) - Closed Specialty Diagnoses / Procedures Referred By Massimo steven Referred To Contact Diagnoses Traumatic incomplete tear of left rotator cuff, initial encounter Procedures US Shoulder Left Complete US Upper Extremity Left Limited Pal Russell MD Phone: tel: fax: [address] [address] Referral ID Status Reason Start Date Expiration Date Visits Re quested Visits Authorized [id number] Closed 06/27/2020 07/27/2021 1 1 T COOK Reason for Visit * Diagnostic Imaging (Routine) - Closed Specialty Diagnoses / Procedures Referred By Massimo steven Referred To Contact Diagnoses Traumatic incomplete tear of left rotator cuff, initial encounter Procedures US Shoulder Left Complete US Upper Extremity Left Limited Pal Russell MD Phone: tel: fax: [address] [address] Referral ID Status Reason Start Date Expiration Date Visits Re quested Visits Authorized [id number] Closed 06/27/2020 07/27/2021 1 1 Encounter Details Date Type Department Care Team (Latest Contact Info) Description 07/24/2020 10:44 AM FIRST COOK - 07/24/2020 11:59 PM FIRST COOK Hospital Encounter [facility] [address] [place] [address] Pal Russell MD [address] [address] Traumatic incomplete tear of left rotator cuff, initial encounter Discharge Disposition: Discharge to home or self care Social History Tobacco Use Types Packs/Day Years Used Date Smoking Tobacco: Never Smokeless Tobacco: Never Alcohol Use Standard Drinks/Week Comments Yes 0 (1 standard drink = 0.6 oz pur e alcohol) Sex and Gender Information Value Date Recorded Sex Assigned at Not on file Legal Sex Male 2:28 AM FIRST COOK Gender Identity Not on file Sexual Orientation [...] 10/18/2019 1 cyclobenzaprine (FLEXERIL) 10 mg tablet Take 1 tablet by mouth three times daily as needed for muscle spasm 30 tablet 09/04/2019 1 metoprolol XL (TOPROL-XL) 100 mg 24 hr tabletIndication s:hypertension Take 1 tablet (100 mg total) by mouth daily 30 tablet 11 06/27/2020 2 montelukast (SINGULAIR) 10 mg tabletIndication s:Seasonal Allergic Rhinitis Take 1 tablet (10 mg total) by mouth nightly 30 tablet 11 06/27/2020 2 pravastatin (PRAVACHOL) 10 mg tablet Take 1 tablet by mouth once daily 90 tablet 04/15/2020 1 traZODone (DESYREL) 50 mg tabletIndication s:insomnia [...] Procedure Name Priority Date/Time Associated Diagnosis Comments US SHOULDER LEFT COMPLETE Schedule Routine, Read Routine (OP Routine) 07/24/2020 12:03 PM FIRST COOK Traumatic incomplete tear of left rotator cuff, initial encounter documented in this encounter Results * US Shoulder Left Complete (07/24/2020 12:03 PM FIRST COOK) Anatomical Region Laterality Modality Shoulder Left Ultrasound 07/24/2020 12:3 9 PM FIRST COOK Impressions 07/24/2020 12:39 PM FIRST COOK 1. Large full-thickness posterior cuff tear as described above. Full-thickness superior subscapularis tendon tear as described above with subluxation of the biceps tendon on internal rotation. 2. Posterior cuff tendinopathy. Electronically signed by: Elizabet Beck M.D. Narrative 07/24/2020 12:39 PM FIRST COOK EXAMINATION: US SHOULDER LEFT COMPLETE HISTORY: ??59-year-old male who had his left arm pulled when walking his dog 3 months ago. COMPARISON: ??None FINDINGS: Left shoulder: ??The biceps tendon subluxes with internal rotation due to the subscapularis tendon tear. ??There is a small tendon sheath effusion. ??No increased color Doppler flow. ??The patient is not focally tender with transducer compression. ??There is a small joint effusion. ?? There is a superior subscapularis tendon tear that measures 5 mm on sagittal views and 11 mm on transverse views. ??There is also the suggestion of a deep sided partial-thickness tear extending from the full-thickness tear medially. ??There is a small calcific density in the intact cuff measuring 2 mm. There is a full-thickness tear of the posterior cuff. ??The torn tendon end is retracted 24 mm; tear width measures 20 mm. The tear begins immediately posterior to the intra-articular portion of the biceps tendon. ??The remainder of the cuff is intact, however, it is hypoechoic and thickened measuring 6 mm. There is mild fatty infiltration of the supraspinatus muscle. ??The infraspinatus and teres minor muscles are normal. Procedure Note Elizabet Beck MD - 07/24/2020 EXAMINATION: US SHOULDER LEFT COMPLETE HISTORY: 59-year-old male who had his left arm pulled when walking his dog 3 months ago. COMPARISON: None FINDINGS: Left shoulder: The biceps tendon subluxes with internal rotation due to the subscapularis tendon tear. There is a small tendon sheath effusion. No increased color Doppler flow. The patient is not focally tender with transducer compression. There is a small joint effusion. There is a superior subscapularis tendon tear that measures 5 mm on sagittal views and 11 mm on transverse views. There is also the suggestion of a deep sided partial-thickness tear extending from the full-thickness tear medially. There is a small calcific density in the intact cuff measuring 2 mm. There is a full-thickness tear of the posterior cuff. The torn tendon end is retracted 24 mm; tear width measures 20 mm. The tear begins immediately posterior to the intra-articular portion of the biceps tendon. The remainder of the cuff is intact, however, it is hypoechoic and thickened measuring 6 mm. There is mild fatty infiltration of the supraspinatus muscle. The infraspinatus and teres minor muscles are normal. IMPRESSION: 1. Large full-thickness posterior cuff tear as described above. Full-thickness superior subscapularis tendon tear as described above with subluxation of the biceps tendon on internal rotation. 2. Posterior cuff tendinopathy. Electronically signed by: Elizabet Beck M.D. Pal Russell MD [facility] [place] Final Result documented in this encounter Visit Diagnoses Diagnosis Traumatic incomplete tear of left rotator cuff, initial encounter documented in this encounter Care Teams Mushroom Cultivator Relationship Specialty Start Date End Date Pal Russell MD PCP - General 06/08/17 09/04/21 documented as of this encounter
--- OUTSIDE RECORDS SUMMARY | 2024-06-25 13:59 | XMS_ITS | Encounter Summary ---
Author Organization [facility] Address [address] [place] [address] Phone Care Team Providers Care Supervisor Pipelines Name Role Phone Pal Russell MD Primary Care Provider [phone] Reason for Visit * Reason Onset Date Comments Knee Injury 07/22/2020 Encounter Details Date Type Department Care Team (Late st Contact Info) Description 07/22/2020 Telephone [facility] [address] [place] [address] Pal Russell MD [address] [place] [address] Knee Injury Social History Tobacco Use Types Packs/Day Years Used Date Smoking Tobacco: Never Smokeless Tobacco: Never Alcohol Use Standard Drinks/Week Comments Yes 0 (1 standard drink = 0.6 oz pur e alcohol) Sex and Gender Information Value Date Recorded Sex Assigned at Not on file Legal Sex Male 2:28 AM CAREER TECHNICAL COUNSELOR Gender Identity Not on file Sexual Orientation Not on file documented as of this encounter Miscellaneous Notes * Telephone Encounter - Moriah Turner NP - 07/22/2020 1:31 PM CAREER TECHNICAL COUNSELOR ER TECHNICAL COUNSELOR * Telephone Encounter - Flavia Amin MA - 07/22/2020 1:05 PM CST Left detail message regarding response from doctor ER TECHNICAL COUNSELOR * Telephone Encounter - Pal Russell MD - 07/22/2020 11:59 AM CST We don???t evaluate injured knees with the ultrasound. I suggest he come in for an eval with Aldair Neville. Since this is a new knee injury. ER TECHNICAL COUNSELOR * Telephone Encounter - Flavia Amin MA - 07/22/2020 10:24 AM CST Patient calling regarding he injured his knee and wondering can doctor put in order to get this look at. Patient has a sonogram appointment for his shoulder this Wednesday trying to see can they do both shoulder and knee. Patient hasn't had much sleep and just looking for some relief. Please Call. Thank you ER TECHNICAL COUNSELOR documented in this encounter Plan of Treatment Scheduled Procedures Name Priority Associated Diagnoses Date/Ti me COLONOSCOPY Colon cancer screening COLONOSCOPY Colon cancer screening documented as of this encounter Visit Diagnoses Not on filedocumented in this encounter Care Teams Supervisor Pipelines Relationship Specialty Start Date End Date Pal Russell MD PCP - General 06/08/17 09/04/21 documented as of this encounter
--- OUTSIDE RECORDS SUMMARY | 2024-06-25 13:59 | XMS_ITS | Encounter Summary ---
Author Organization [facility] Address [address] [place] [address] Phone Care Team Providers Care Recreation Therapy Aides Teacher Name Role Phone Pal Russell MD Primary Care Provider [phone] Reason for Referral * Diagnostic Imaging (Routine) - Closed Specialty Diagnoses / Procedures Referred By Massimo t Referred To Contact Diagnoses Traumatic incomplete tear of left rotator cuff, initial encounter Procedures US Shoulder Left Complete US Upper Extremity Left Limited Pal Russell MD Phone: tel: fax: [address] [address] Referral ID Status Reason Start Date Expiration Date Visits Re quested Visits Authorized [id number] Closed 06/27/2020 07/27/2021 1 1 OFF SAW SET UP OPERATOR Reason for Visit * Reason Comments Hypertension Dizziness Encounter Details Date Type Department Care Team (Late st Contact Info) Description 06/27/2020 10:00 AM CUT OFF SAW SET UP OPERATOR Office Visit [facility] [address] [place] [address] Pal Russell MD [address] [place] [phone] Obstructive sleep apnea syndrome in adult (Primary Dx); Chronic coronary artery disease; Benign essential HTN; Seasonal allergic rhinitis due to pollen; Traumatic incomplete tear of left rotator cuff, initial encounter Social History Tobacco Use Types Packs/Day Years Used Date Smoking Tobacco: Never Smokeless Tobacco: Never Alcohol Use Standard Drinks/Week Comments Yes 0 (1 standard drink = 0.6 oz pur e alcohol) Sex and Gender Information Value Date Recorded Sex Assigned at Not on file Legal Sex Male 2:28 AM CUT OFF SAW SET UP OPERATOR Gender Identity Not on file Sexual Orientation Not on file documented as of this encounter Last Filed Vital Signs Vital Sign Reading Time Taken Comments Blood Pressure 152/98 06/27/2020 10:13 AM CUT OFF SAW SET UP OPERATOR Pulse 90 06/27/2020 10:13 AM CUT OFF SAW SET UP OPERATOR Temperature 36.3 ??C (97.4 ??F) 06/27/2020 10:[address] Respiratory Rate - - Oxygen Saturation 97% 06/27/2020 10:13 AM CUT OFF SAW SET UP OPERATOR Inhaled Oxygen Concentration - - Weight 100.7 kg (222 lb) 06/27/2020 10:13 AM CUT OFF SAW SET UP OPERATOR Height - - Body Mass Index 34.77 07/27/2018 2:08 PM CUT OFF SAW SET UP OPERATOR documented in this encounter Patient Instructions * Patient Instructions* Pal Russell MD - 06/27/2020 10:00 AM CUT OFF SAW SET UP OPERATOR Images from the original note were not included. DASH Eating Plan WHAT YOU NEED TO [...] add flavor to foods. Try lemon or sycuan juice or vinegar to give foods a [...] oil, and liquid and soft tub margarines. [place]-3 fatty acids are found in fatty fish, [...] information? ?? National Heart, Lung and [facility] [address] [address] [place] [address] Phone: Web Address: http://www.nhlbi.nih.gov/health/infoctr/index.htm CARE AGREEMENT: You have the right to help plan your care. Discuss treatment options with your caregivers to decidewhat care you want to receive. You always have the right to refuse treatment. The above informationis an nutrition aide only. It is not intended as medical advice for individual conditions or treatments. Talk to your doctor, nurse or pharmacist before following any medical regimen to see if it is safe and effective for you. ?? 2016 [employer]. Information is for End User's use only and may not be sold, redistributed or otherwise used for commercial purposes. All illustrations and images included in CareNotes?? are the copyrighted property of [employer] or [employer]. Patient Education Rotator Cuff Injury WHAT YOU NEED TO KNOW: A rotator cuff injury is damage to the muscles or tendons of your rotator cuff. The rotator cuff ismade up of a group of muscles and tendons that hold the shoulder joint in place. The damage may include stretching of your muscle or tears in the tendons. It may also include inflammation of the bursa (small sack of fluid around the joint). DISCHARGE INSTRUCTIONS: Medicines: ?? Acetaminophen: This medicine decreases pain. Acetaminophen is available without a doctor's order. Ask how much to take and how often to take it. Follow directions. Acetaminophen can cause liver damage if not taken correctly. ?? NSAIDs: These medicines decrease swelling, pain, and fever. NSAIDs are available without a doctor's order. Ask your healthcare provider which medicine is right for you. Ask how much to take and when to take it. Take as directed. NSAIDs can cause stomach bleeding or kidney problems if not taken correctly. ?? Pain medicine: You may be given a prescription medicine to decrease pain. Do not wait until the pain is severe before you take this medicine. ?? Steroids: This medicine may be injected into the rotator cuff area to decrease inflammation and pain. ?? Take your medicine as directed. Contact [...] with you in case of an emergency. Follow up with your healthcare provider or orthopedist as directed: Write down your questions so you remember to ask them during your visits. Physical therapy: A physical therapist can teach you exercises to help improve movement and strength, and to decrease pain. These exercises may help you go back to your usual activities or return to playing sports. Self-care: ?? Rest: Rest may help your shoulder heal. Overuse of your shoulder can make your injury worse. Avoid heavy lifting, using your arms over your head, or any other activity that makes the pain worse. ?? Put ice or heat on your shoulder: Use ice on your shoulder every few hours for the first severaldays. This may help decrease pain and swelling. After the first several days, a heating pad may help relax the muscles in your shoulder. Contact your healthcare provider or orthopedist if: ?? The pain in your shoulder or arm is not improving, or is worse than before you started treatment. ?? You have new pain in your neck. ?? You have a fever. ?? You have questions or concerns about your condition or care. Seek care immediately or call 911 if: ?? You suddenly cannot move your arm. ?? You have severe stomach or back pain, are vomiting blood, or have black bowel movements. ?? 2017 [employer] Information is for End User's use only and may not be sold, redistributed or otherwise used for commercial purposes. All illustrations and images included in CareNotes?? are the copyrighted property of [employer]. or [employer]. The above information is an nutrition aide only. It is not intended as medical advice for individual conditions or treatments. Talk to your doctor, nurse or pharmacist before following any medical regimen to see if it is safe and effective for you. Patient Education Allergic Rhinitis MACHINE MAINTENANCE REPAIRER: Allergic rhinitis , or hay fever, is [...] regularly. Vacuum weekly and use a vacuum supervisor housecleaner withan air filter. If possible, get rid [...] ask them during your visits. ?? 2017 [employer] Information is for End User's use only and may not be sold, redistributed or otherwise used for commercial purposes. All illustrations and images included in CareNotes?? are the copyrighted property of [employer], [employer]. or [employer]. The above information is an nutrition aide only. It is not intended as medical advice for individual conditions or treatments. Talk to your doctor, nurse or pharmacist before following any medical regimen to see if it is safe and effective for you. Patient Education Sleep Apnea MACHINE MAINTENANCE REPAIRER: Sleep apnea is also called obstructive sleep apnea. It is a condition that causes you to stop breathing for 10 seconds or more while you are sleeping. During normal sleep, your throat is kept open bymuscles that let air pass through easily. Sleep apnea causes the muscles and tissues around your throat to relax and block air from passing through. Sleep apnea may happen many times while you are asleep. Common symptoms include the following: ?? No signs of breathing for 10 seconds or more while you sleep ?? Snoring loudly, snorting, gasping or choking while you sleep, and waking up suddenly because of these ?? A hard time thinking, remembering things, or focusing on your tasks the following day ?? Headache or nausea ?? Bedwetting or waking up often during the night to urinate ?? Feeling sleepy, slow, and tired during the day Seek care immediately if: ?? You have chest pain or trouble breathing. Contact your healthcare provider if: ?? You feel tired or depressed. ?? You have trouble staying awake during the day. ?? You have trouble thinking clearly. ?? You have questions or concerns about your condition or care. Treatment for sleep apnea includes using a continuous positive airway pressure (CPAP) machine to keep your airway open during sleep. A mask is placed over your nose and mouth, or just your nose. The mask is hooked to the CPAP machine that blows a gentle stream of air into the mask when you breathe.This helps keep your airway open so you can breathe more regularly. Extra oxygen may be given to you through the machine. You may be given a mouth device. It looks like a mouth guard or dental retainer and stops your tongue and mouth tissues from blocking your throat while you sleep. Surgery may beneeded to remove extra tissues that block your mouth, throat, or nose. Manage sleep apnea: ?? Do not smoke. Nicotine and other chemicals in cigarettes and cigars can cause lung damage. Ask your healthcare provider for information if you currently smoke and need help to quit. E-cigarettes or smokeless tobacco still contain nicotine. Talk to your healthcare provider before you use these products. ?? Do not drink alcohol or take sedative medicine before you go to sleep. Alcohol and sedatives canrelax the muscles and tissues around your throat. This can block the airflow to your lungs. ?? Maintain a healthy weight. Excess tissue around your throat may restrict your breathing. Ask your healthcare provider for information if you need to lose weight. ?? Sleep on your side or use pillows designed to prevent sleep apnea. This prevents your tongue or other tissues from blocking your throat. You can also raise the head of your bed. Follow up with your healthcare provider as directed: Write down your questions so you remember to ask them during your visits. ?? 2017 [employer] Information is for End User's use only and may not be sold, redistributed or otherwise used for commercial purposes. All illustrations and images included in CareNotes?? are the copyrighted property of [employer]. or [employer]. The above information is an nutrition aide only. It is not intended as medical advice for individual conditions or treatments. Talk to your doctor, nurse or pharmacist before following any medical regimen to see if it is safe and effective for you. OFF SAW SET UP OPERATOR documented in this encounter Ordered Prescriptions Prescription Sig Dispense Quantity Refills Last Filled Start Date End Date metoprolol XL (TOPROL-XL) 100 mg 24 hr tabletIndications: hypertension Take 1 tablet (100 mg total) by mouth daily 30 tablet 11 06/27/2020 2 triamcinolone (NASACORT) 55 mcg nasal inhalerIndications :Allergic Rhinitis Administer 2 sprays into each nostril daily 16.9 mL 3 06/27/2020 1 montelukast (SINGULAIR) 10 mg tabletIndications: Seasonal Allergic Rhinitis Take 1 tablet (10 mg total) by mouth nightly 30 tablet 11 06/27/2020 2 amLODIPine (NORVASC) 10 mg tablet Take 1 tablet (10 mg total) by mouth daily 90 tablet 3 06/27/2020 2 documented in this encounter Progress Notes * Pal Russell MD - 06/27/2020 10:00 AM CST Images from the original note were not included. SUBJECTIVE: Sean Ritter is a 59 y.o. member presenting for a [facility] visit for HTN Today we focussed on the following concerns: 1. 177/121 was a BP he took 4 days ago 2. On amlodipine 5 and metop XL 50 3. Cough is gone 4. Sleep is a big problem, says spinning of head, the other thing is is 100# dog yanked his arm andthe left shoulder is torn. Is unrested awakening always severe fatigue in te day, falls asleep quickly 5. Advocates compliance w/ the meds Current Outpatient Medications Medication Sig Dispense Refill [...] drugs. Review of Systems HENT: Positive for postnasal drip, rhinorrhea and sinus pressure. Respiratory: Negative. Cardiovascular: Negative. Gastrointestinal: Negative. OBJECTIVE: BP 152/98 Pulse 90 Temp 36.3 ??C (97.4 ??F) Wt 100.7 kg (222 lb) SpO2 97% BMI 34.77 kg/m?? Physical Exam RECENT RESULTS: No results found for this or any previous visit (from the past 1008 hour(s)). Assessment/Plan Problem List Respiratory Obstructive sleep apnea syndrome in adult - Primary (Chronic) Overview Description: obstructive and central treated with APAP 4-4, but non compliance an issue so I beggedhim to get back to sleep center in [facility] Current Assessment & Plan We will refer and see if a candidate for the inspire Allergic rhinitis Overview Seems primarily sinus mediated and could be strongly contributing to cough singulair +flonase Current Assessment & Plan Refill both, he actually not on singulair but needs this +nasacort Circulatory Chronic coronary artery disease (Chronic) Overview Description: this was in 2007 and was hospitalized at the . Dr Kay did the LHC: 40%LAD and 30% RCA and LCx with slower flow in RCA. -->med management Impression: the left arm seems very much a discogenic problem but with this hx, ekg and stress echoalso needed Current Assessment & Plan Despite the severe HTN there is no angina Relevant Medications amLODIPine (NORVASC) 10 mg tablet metoprolol XL (TOPROL-XL) 100 mg 24 hr tablet Benign essential HTN Current Assessment & Plan Very sub optimal I am very concerned is untreated severe LUIS F is to blame We will refer to see if a candidate for the inspire Also up both bp meds Relevant Medications amLODIPine (NORVASC) 10 mg tablet metoprolol XL (TOPROL-XL) 100 mg 24 hr tablet Musculoskeletal Traumatic tear of left rotator cuff Overview Positive lift off and Neer Current Assessment & Plan Check US and refer straight to ortho Relevant Orders US Upper Extremity Left Limited Orders Placed This Encounter ??? US Upper Extremity Left Limited ??? amLODIPine (NORVASC) 10 mg tablet ??? montelukast (SINGULAIR) 10 mg tablet ??? triamcinolone (NASACORT) 55 mcg nasal inhaler ??? metoprolol XL (TOPROL-XL) 100 mg 24 hr tablet Pollo Russell MD OFF SAW SET UP OPERATOR documented in this encounter Miscellaneous Notes * Assessment & Plan Note - Pal Russell MD - 06/27/2020 10:51 AM CUT OFF SAW SET UP OPERATOR Associated Problem(s): Traumatic tear of left rotator cuff Check US and refer straight to ortho OFF SAW SET UP OPERATOR OFF SAW SET UP OPERATOR * Assessment & Plan Note - Pal Russell MD - 06/27/2020 10:50 AM CUT OFF SAW SET UP OPERATOR Associated Problem(s): Allergic rhinitis Refill both, he actually not on singulair but needs this +nasacort OFF SAW SET UP OPERATOR * Assessment & Plan Note - Pal Russell MD - 06/27/2020 10:49 AM CUT OFF SAW SET UP OPERATOR Associated Problem(s): Benign essential HTN Very sub optimal I am very concerned is untreated severe LUIS F is to blame We will refer to see if a candidate for the inspire Also up both bp meds OFF SAW SET UP OPERATOR * Assessment & Plan Note - Pal Russell MD - 06/27/2020 10:48 AM CUT OFF SAW SET UP OPERATOR Associated Problem(s): Chronic coronary artery disease Despite the severe HTN there is no angina OFF SAW SET UP OPERATOR * Assessment & Plan Note - Pal Russell MD - 06/27/2020 10:44 AM CUT OFF SAW SET UP OPERATOR Associated Problem(s): Obstructive sleep apnea syndrome in adult We will refer and see if a candidate for the inspire OFF SAW SET UP OPERATOR documented in this encounter Plan of Treatment Scheduled Procedures Name Priority Associated Diagnoses Date/Ti me COLONOSCOPY Colon cancer screening COLONOSCOPY Colon cancer screening documented as of this encounter Results * US Shoulder Left Complete (07/24/2020 12:03 PM CUT OFF SAW SET UP OPERATOR) Anatomical Region Laterality Modality Shoulder Left Ultrasound 07/24/2020 12:3 9 PM CUT OFF SAW SET UP OPERATOR Impressions 07/24/2020 12:39 PM CUT OFF SAW SET UP OPERATOR 1. Large full-thickness posterior cuff tear as described above. Full-thickness superior subscapularis tendon tear as described above with subluxation of the biceps tendon on internal rotation. 2. Posterior cuff tendinopathy. Electronically signed by: Elizabet Beck M.D. Narrative 07/24/2020 12:39 PM CUT OFF SAW SET UP OPERATOR EXAMINATION: US SHOULDER LEFT COMPLETE HISTORY: ??59-year-old [...] by: Elizabet Beck M.D. Pal Russell MD IMG US PROCEDURES Final Result documented in this encounter Visit Diagnoses Diagnosis Obstructive sleep apnea syndrome in adult- Primary Chronic coronary artery disease Coronary atherosclerosis of unspecified type of vessel, tyonek or graft Benign essential HTN Seasonal allergic rhinitis due to pollen Traumatic incomplete tear of left rotator cuff, initial encounter Traumatic incomplete tear of left rotator cuff, initial encounter documented in this encounter Discontinued Medications Medication Sig Discontinue Reason Start Date End Da te amLODIPine (NORVASC) 5 mg tablet Take 1 tablet (5 mg total) by mouth daily 01/30/2020 06/27/2020 metoprolol XL (TOPROL-XL) 50 mg extended release tabletIndications:hype rtension Take 1 tablet (50 mg total) by mouth daily 02/12/2020 06/27/2020 montelukast (SINGULAIR) 10 mg tabletIndications:Seas onal Allergic Rhinitis Take 1 tablet (10 mg total) by mouth nightly Reorder 02/12/2020 06/27/2020 triamcinolone (NASACORT) 55 mcg nasal inhalerIndications:All ergic Rhinitis Administer 2 sprays into each nostril daily Reorder 02/12/2020 06/27/2020 documented as of this encounter Care Teams Recreation Therapy Aides Teacher Relationship Specialty Start Date End Date Pal Russell MD PCP - General 06/08/17 09/04/21 documented as of this encounter
--- OUTSIDE RECORDS SUMMARY | 2024-06-25 13:59 | XMS_ITS | Encounter Summary ---
Author Organization [facility] Address [address] [place] [address] Phone Care Team Providers Care Multimedia Developer Name Role Phone Pla Russell MD Primary Care Provider [phone] Encounter Details Date Type Department Care Team (Late st Contact Info) Description 01/23/2020 Telephone [facility] [address] [place] [address] Pal Russell MD [address] [phone] Social History Tobacco Use Types Packs/Day Years Used Date Smoking Tobacco: Never Smokeless Tobacco: Never Alcohol Use Standard Drinks/Week Comments Yes 0 (1 standard drink = 0.6 oz pur e alcohol) Sex and Gender Information Value Date Recorded Sex Assigned at Not on file Legal 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 Gender Identity Not on file Sexual Orientation Not on file documented as of this encounter Miscellaneous Notes * Telephone Encounter - Claribel Howell MA - 01/23/2020 4:38 PM CDT Spoke with pt * Telephone Encounter - Pal Russell MD - 01/23/2020 3:27 PM CDT Only stop lisinopril and give daily readings back to us Over the next week * Telephone Encounter - Claribel Howell MA - 01/23/2020 3:13 PM CDT Know if that was the only medication you would like for him to stop or all medication and when you want him to contact the office with bp's * Telephone Encounter - Pal Russell MD - 01/23/2020 1:58 PM CDT Have him stop lisinopril and monitor BP and see if cough reduces, may take a week or so to tell * Telephone Encounter - Liane Nguyen MA - 01/23/2020 1:38 PM CDT He can't get rid of the coughing and headaches. Been going on for fie months now. Maybe he needs a different medication than the one Dr. Russell prescribed? documented in this encounter Plan of Treatment Scheduled Procedures Name Priority Associated Diagnoses Date/Ti me COLONOSCOPY Colon cancer screening COLONOSCOPY Colon cancer screening documented as of this encounter Visit Diagnoses Not on filedocumented in this encounter Care Teams Multimedia Developer Relationship Specialty Start Date End Date Pal Russell MD PCP - General 06/08/17 09/04/21 documented as of this encounter
--- OUTSIDE RECORDS SUMMARY | 2024-06-25 13:59 | XMS_ITS | Encounter Summary ---
Author Organization [facility] Address [address] [place] [address] Phone Care Team Providers Care Immigration Coordinator Name Role Phone Pal Russell MD Primary Care Provider [phone] Reason for Referral * Diagnostic Imaging (Routine) - Closed Specialty Diagnoses / Procedures Referred By Massimo steven Referred To Contact Radiology Diagnoses Left shoulder pain, unspecified chronicity Procedures [place] [address] [place] [address] Phone: tel: fax: External Order Referral ID Status Reason Start Date Expiration Date Visits Re quested Visits Authorized [id number] Closed 07/29/2020 08/28/2021 1 1 O RIDER * Diagnostic Imaging (Routine) - Closed Specialty Diagnoses / Procedures Referred By Massimo steven Referred To Contact Diagnoses Left shoulder pain, unspecified chronicity Procedures XR Shoulder Left 2+ [place] [address] [place] [address] Phone: tel: fax: [facility] Referral ID Status Reason Start Date Expiration Date Visits Re quested Visits Authorized [id number] Closed 07/25/2020 08/24/2021 1 1 O RIDER Reason for Visit * Reason Comments Pain * Consultation (Routine) - Closed Specialty Diagnoses / Procedures Referred By Contac t Referred To Contact Orthopedic Surgery Diagnoses Complete tear of left rotator cuff, unspecified whether traumatic Pal Russell MD Phone: tel: fax: [facility] (All Locations) Referral ID Status Reason Start Date Expiration Date V isits Requested Visits Authorized [id number] Closed Specialty Services Required 06/27/2020 07/27/2021 12 12 Encounter Details Date Type Department Care Team (Late st Contact Info) Description 07/29/2020 10:00 AM RODEO RIDER Office Visit [facility] Orthopaedic Surgery [address] [place] [address] [place] [address] [place] [address] Left shoulder pain, unspecified chronicity (Primary Dx); Complete tear of left rotator cuff, unspecified whether traumatic Social History Tobacco Use Types Packs/Day Years Used Date Smoking Tobacco: Never Smokeless Tobacco: Never Alcohol Use Standard Drinks/Week Comments Yes 0 (1 standard drink = 0.6 oz pur e alcohol) Sex and Gender Information Value Date Recorded Sex Assigned at Not on file Legal Sex Male 2:28 AM RODEO RIDER Gender Identity Not on file Sexual Orientation Not on file documented as of this encounter Progress Notes * Johnie Fregoso MD - 07/29/2020 10:00 AM CST Images from the original note were not included. NEW PATIENT VISIT CHIEF COMPLAINT Bilateral shoulder pain, right greater than left HISTORY OF PRESENT ILLNESS Mr. Ritter is a 59-year-old male presenting with chief complaint of bilateral shoulder pain. The right side is worse than the left currently. With regards to the left side, he states that 6 months ago he was walking his dog when the dog ran off after a deer and jerk his left arm bilaterally. Ever since then he has had pain localized to theperiscapular area on the left side as well as the neck. The pain does radiate distally at times past the elbow and into the hand. With regards to the right side, he denies any trauma or inciting event. The pain has been present for the past approximately 1 week. He states that the pain starts in his neck and radiates distally into his periscapular region and at times past the elbow into his hand. The pain also affects his lateral chest wall. The pain on both sides is sharp and aching in quality. It is moderate to severe. The pain is worse with sleeping on his side and also with sudden movements and lifting. He had an ultrasound of the left shoulder performed by his primary care provider which showed a rotator cuff tear and he presents today for definitive management. He has a known history of cervical spine degenerative disc disease for which he has received image guided corticosteroid injections which have provided him with significant relief. He is also on muscle relaxers for this. He has not doneany physical therapy or had any steroid injections into his shoulders. 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 Past Medical History: Diagnosis Date ??? Arthritis ??? Gout ??? Headache ??? Old myocardial infarction History of non-ST elevation myocardial infarction (NSTEMI) - (Added by PATI Conv) Past Surgical History: Procedure Laterality Date ??? BACK SURGERY ??? LA APPENDECTOMY Appendectomy - (Added by PATI Conv) Current Outpatient Medications: ??? amLODIPine (NORVASC) 10 [...] daily, Disp: 90 tablet, Rfl: 0 ??? traZODone (DESYREL) 50 mg tablet, Take 1 tablet (50 mg total) by mouth nightly as needed for sleep, Disp: 30 tablet, Rfl: 3 ??? triamcinolone (NASACORT) 55 mcg nasal inhaler, Administer 2 sprays into each nostril daily, Disp: 16.9 mL, Rfl: 3 No Known Allergies Social History Socioeconomic History ??? Marital status: Legally Spouse name: Not on file ??? Number of children: Not on file ??? Years of education: Not on file ??? Highest education level: Not on file Occupational History ??? Not on file Social Needs ??? Financial resource strain: Not on file ??? Food insecurity Worry: Not on file Inability: Not on file ??? Transportation needs Medical: Not on file Non-medical: Not on file Tobacco Use ??? Smoking status: Never Smoker ??? Smokeless tobacco: Never Used Substance and Sexual Activity ??? Alcohol use: Yes ??? Drug use: Never ??? Sexual activity: Not on file Lifestyle ??? Physical activity Days per week: Not on file Minutes per session: Not on file ??? Stress: Not on file Relationships ??? Social connections Talks on phone: Not on file Gets together: Not on file Attends amish service: Not on file Active member of club or organization: Not on file Attends meetings of clubs or organizations: Not on file Relationship status: Not on file ??? Intimate partner violence Fear of current or ex partner: Not on file Emotionally abused: Not on file Physically abused: Not on file Forced sexual activity: Not on file Other Topics Concern ??? Not on file Social History Narrative Alcohol use : (Added by TW Conv) Caffeine use : (Added by TW Conv) Lack of exercise : (Added by TW Conv) Insufficient vegetables : (Added by TW Conv) Dietary excess : (Added by TW Conv) Diet is high in fat content : (Added by TW Conv) Family History Problem Relation Age of Onset ??? Heart attack Brother Family history of heart attack - (Added by TW Conv) ??? Heart disease Brother ??? Heart disease Mother ??? Arthritis Mother ??? Hypertension Mother ??? Arthritis Father REVIEW OF SYSTEMS ROS PHYSICAL EXAMINATION Well-appearing male in NAD. Hearing intact to normal levels of conversation. No labored breathing. Height- 5 ft 7 in. Weight - 220 lb. Spurling's test is positive bilaterally, reproducing pain in the neck, periscapular region, and down bilateral arms. Focused examination of the right upper extremity demonstrates no deformity. There is no pain with palpation of the AC joint. He has 160?? of active forward elevation and 80?? of active external rotation with the arm at the side. He has internal rotation to the upper lumbar spine. He has 5/5 strength with thumbs down abduction, 5/5 strength with resisted external rotation with the arm at the side,5/5 strength with bear hug, a normal belly press test, and a normal lift- off test. He has mild painwith Neer and Millan test. Biceps provocative tests are normal. The extremity is neurovascularly intact distally. Focused examination of left upper extremity demonstrates no deformity. There is no pain with palpation of the AC joint. He has 170?? of active forward elevation and 80?? of active external rotation with the arm at the side. He has internal rotation to the upper lumbar spine. He has 4/5 strength with thumbs down abduction, 4/5 strength with resisted external rotation with the arm at the side, 4/5 strength with bear hug, a normal belly press test, and a normal lift- off test. He has mild pain withNeer and Millan test. Biceps provocative tests are normal. The extremity is neurovascularly intactdistally. REVIEW OF X-RAYS/STUDIES Plain films of the left shoulder obtained today and reviewed show moderate to severe AC joint arthritis and mild glenohumeral arthritis. Ultrasound of the left shoulder from July 24, 2020 reviewed today shows a large full-thickness posterior rotator cuff tear with a full-thickness superior subscapularis tear and subluxation of the biceps tendon. IMPRESSION/DIAGNOSIS 1. Cervical spondylosis 2. Left rotator cuff tear 3. Mild left glenohumeral arthritis and moderate to severe left AC joint arthritis, minimally symptomatic TREATMENT PLAN We discussed his diagnosis with him. We recommended an MRI of the left shoulder to better define the rotator cuff tear and to assess for fatty atrophy of the muscle bellies. We recommended that he see Dr. Membreno again for his cervical spine to consider repeat injections as these provided him with significant relief in the past. We also provided a prescription for physical therapy to work on periscapular strengthening exercises bilaterally. We provided a prescription for tramadol today. We will call him with the results of his shoulder MRI, at which point we will discuss next steps. In the meantime he should modify his activities according to his symptoms. He will contact us if any issues arise. All of his questions were answered. Claus Rodriguez MD PGY4, Department of Orthopaedic Surgery Dictated using MModal Fluency Direct. Hide Spreader variations may occur. I was present for the critical portion of the history, physical examination, and participated in the radiographic review and medical decision making for this patient. I agree with the findings in thereport of the above residence/fellow dictating using Fluency Direct software. O RIDER documented in this encounter Plan of Treatment Scheduled Procedures Name Priority Associated Diagnoses Date/Ti me COLONOSCOPY Colon cancer screening COLONOSCOPY Colon cancer screening documented as of this encounter Results * MRI Shoulder Left WO Contrast (08/06/2020 4:31 PM RODEO RIDER) Anatomical Region Laterality Modality Upper Extremities Left Magnetic Reson ance us Johnie Fregoso MD IMG MRI PROCEDURES Final Re sult * XR Shoulder Left 2+ View (07/29/2020 10:25 AM RODEO RIDER) Anatomical Region Laterality Modality Upper Extremities, Shoulder Left Comp uted Radiography 07/29/2020 10:2 8 AM RODEO RIDER Impressions 07/29/2020 10:28 AM RODEO RIDER Moderate left acromioclavicular osteoarthritis. Electronically signed by: Chucky Mccall M.D. Narrative 07/29/2020 10:28 AM RODEO RIDER EXAMINATION: Left shoulder minimum 2 views HISTORY: [...] osteoarthritis. Electronically signed by: Chucky Mccall M.D. Johnie Fregoso MD IMG XR PROCEDURES Final Res ult documented in this encounter Visit Diagnoses Diagnosis Left shoulder pain, unspecified chronicity- Primary Complete tear of left rotator cuff, unspecified whether traumatic Left shoulder pain, unspecified chronicity documented in this encounter Orders Outpatient Referral Count Last Ordered Date Fir st Ordered Date AMB REFERRAL TO ORTHOPEDIC SURGERY 1 2020 documented in this encounter Care Teams Immigration Coordinator Relationship Specialty Start Date End Date Pal Russell MD PCP - General 06/08/17 09/04/21 documented as of this encounter
--- OUTSIDE RECORDS SUMMARY | 2024-06-25 13:59 | XMS_ITS | Encounter Summary ---
Author Organization [facility] Address [address] [place] [address] Phone Care Team Providers Care Transition Rn Name Role Phone Pal Russell MD Primary Care Provider [phone] Encounter Details Date Type Department Care Team (Late st Contact Info) Description 07/04/2020 Orders Only [facility] [address] [facility] 5th [place] [address] [place] [address] Pal Russell MD [address] [place] [address] Social History Tobacco Use Types Packs/Day Years Used Date Smoking Tobacco: Never Smokeless Tobacco: Never Alcohol Use Standard Drinks/Week Comments Yes 0 (1 standard drink = 0.6 oz pur e alcohol) Sex and Gender Information Value Date Recorded Sex Assigned at Not on file Legal Sex Male 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
--- OUTSIDE RECORDS SUMMARY | 2024-06-25 13:59 | XMS_ITS | Encounter Summary ---
Author Organization [facility] Address [address] [place] [address] Phone Care Team Providers Care Char Filter Operator Name Role Phone Pal Russell MD Primary Care Provider [phone] Encounter Details Date Type Department Care Team (Late st Contact Info) Description 07/25/2020 Documentation [facility] Neuro Sleep [address] 6th [address] [place] [address] Jolene Cr CMA Social History Tobacco Use Types Packs/Day Years Used Date Smoking Tobacco: Never Smokeless Tobacco: Never Alcohol Use Standard Drinks/Week Comments Yes 0 (1 standard drink = 0.6 oz pur e alcohol) Sex and Gender Information Value Date Recorded Sex Assigned at Not on file Legal Sex Male 2:28 AM COMMUNITY RELATIONS ASSISTANT Gender Identity Not on file Sexual Orientation Not on file documented as of this encounter Progress Notes * Jolene Cr CMA - 07/25/2020 5:09 PM CST Called patient on 07/23, 07/24, and 07/25 to schedule sleep study, patient did not answer left message tocall and get scheduled. UNITY RELATIONS ASSISTANT documented in this encounter Plan of Treatment Scheduled Procedures Name Priority Associated Diagnoses Date/Ti me COLONOSCOPY Colon cancer screening COLONOSCOPY Colon cancer screening documented as of this encounter Visit Diagnoses Not on filedocumented in this encounter Care Teams Char Filter Operator Relationship Specialty Start Date End Date Pal Russell MD PCP - General 06/08/17 09/04/21 documented as of this encounter
--- OUTSIDE RECORDS SUMMARY | 2024-06-25 13:59 | XMS_ITS | Encounter Summary ---
Author Organization [facility] Address [address] [place] [address] Phone Care Team Providers Care Armor Senior Sergeant Name Role Phone Pal Russell MD Primary Care Provider [phone] Encounter Details Date Type Department Care Team (Late st Contact Info) Description 07/11/2020 Orders Only [address] [address] Scanning, Provider Social History Tobacco Use Types Packs/Day Years Used Date Smoking Tobacco: Never Smokeless Tobacco: Never Alcohol Use Standard Drinks/Week Comments Yes 0 (1 standard drink = 0.6 oz pur e alcohol) Sex and Gender Information Value Date Recorded Sex Assigned at Not on file Legal Sex Male 2:28 AM DIVERSIFIED CROPS I FARMWORKER Gender Identity Not on file Sexual Orientation Not on file documented as of this encounter Plan of Treatment Scheduled Procedures Name Priority Associated Diagnoses Date/Ti me COLONOSCOPY Colon cancer screening COLONOSCOPY Colon cancer screening documented as of this encounter Procedures Procedure Name Priority Date/Time Associated Diagnosis Comments CARDIOLOGY DOCUMENT SCAN 07/11/2020 4:32 PM DIVERSIFIED CROPS I FARMWORKER documented in this encounter Results * SCAN - CARDIOLOGY (07/11/2020 4:32 PM DIVERSIFIED CROPS I FARMWORKER) Anatomical Region Laterality Modality Other us Provider Scanning CV CARDIAC SERVICES PROCEDURES Final Result documented in this encounter Visit Diagnoses Not on filedocumented in this encounter Care Teams Armor Senior Sergeant Relationship Specialty Start Date End Date Pal Russell MD PCP - General 06/08/17 09/04/21 documented as of this encounter
--- OUTSIDE RECORDS SUMMARY | 2024-06-25 13:59 | XMS_ITS | Encounter Summary ---
Author Organization [facility] Address [address] [place] [address] Care Team Providers Care Freelance Graphic Designer Name Role Phone Pal Russell MD Primary Care Provider [phone] Encounter Details Date Type Department Care Team (Late st Contact Info) Description 07/26/2020 Orders Only [facility] Testing Site - [facility]. [address] [place] [address] Dedrick Luna MD [address] [place] [address] Preop testing (Primary Dx) Social History Tobacco Use Types Packs/Day Years Used Date Smoking Tobacco: Never Smokeless Tobacco: Never Alcohol Use Standard Drinks/Week Comments Yes 0 (1 standard drink = 0.6 oz pur e alcohol) Sex and Gender Information Value Date Recorded Sex Assigned at Not on file Legal Sex Male 2:28 AM PSYCHIATRIC LPN Gender Identity Not on file Sexual Orientation Not on file documented as of this encounter Progress Notes * Fabiola Selby - 07/26/2020 2:34 PM CST Order Specific Questions Question Answer Comment Testing types: Pre-procedure ?? Date of Px/chemo/treatment/placement/transfer 07/28/2020 ?? Testing site patient will be sent to: [place], [place] ?? Date testing requested: 07/26/2020 ?? Testing: COVID-RNA ?? Is this the first COVID-19 test for this patient? Unknown ?? Does the patient currently work in a healthcare facility with direct patient contact? No ?? Is the patient a resident of a congregate care or living setting? No ?? Is the patient ? No ?? Please select the performing region: [facility] HIATRIC LPN documented in this encounter Plan of Treatment Scheduled Procedures Name Priority Associated Diagnoses Date/Ti me COLONOSCOPY Colon cancer screening COLONOSCOPY Colon cancer screening documented as of this encounter Visit Diagnoses Diagnosis Preop testing- Primary Unspecified pre-operative examination documented in this encounter Care Teams Freelance Graphic Designer Relationship Specialty Start Date End Date Pal Russell MD PCP - General 06/08/17 09/04/21 documented as of this encounter
--- OUTSIDE RECORDS SUMMARY | 2024-06-25 13:59 | XMS_ITS | Encounter Summary ---
Author Organization [facility] Address [address] [place] [address] Phone Care Team Providers Care Social Worker Masters Name Role Phone Pal Russell MD Primary Care Provider [phone] Encounter Details Date Type Department Care Team (Late st Contact Info) Description 07/26/2020 Orders Only [facility] Neuro Sleep [address]th [address] [place] [address] Abdon Eisenberg, [facility] Social History Tobacco Use Types Packs/Day Years Used Date Smoking Tobacco: Never Smokeless Tobacco: Never Alcohol Use Standard Drinks/Week Comments Yes 0 (1 standard drink = 0.6 oz pur e alcohol) Sex and Gender Information Value Date Recorded Sex Assigned at Not on file Legal Sex Male 2: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
--- OUTSIDE RECORDS SUMMARY | 2024-06-25 13:59 | XMS_ITS | Encounter Summary ---
Author Organization [facility] Address [address] [place] [address] Phone Care Team Providers Care Dairy Lab Technician Name Role Phone Pal Russell MD Primary Care Provider [phone] Encounter Details Date Type Department Care Team (Late st Contact Info) Description 01/30/2020 Telephone [facility] [address] [place] [address] Pal Russell MD [address] [id number] Social History Tobacco Use Types Packs/Day Years Used Date Smoking Tobacco: Never Smokeless Tobacco: Never Alcohol Use Standard Drinks/Week Comments Yes 0 (1 standard drink = 0.6 oz pur e alcohol) Sex and Gender Information Value Date Recorded Sex Assigned at Not on file Legal Sex Male 2:28 AM HOMEOWNER ASSOCIATION MANAGER Gender Identity Not on file Sexual Orientation Not on file documented as of this encounter Ordered Prescriptions Prescription Sig Dispense Quantity Refills Last Filled Start Date End Date metoprolol XL (TOPROL-XL) 25 mg extended release tablet Take 1 tablet (25 mg total) by mouth daily 30 tablet 11 01/30/2020 02/12/2020 amLODIPine (NORVASC) 5 mg tablet Take 1 tablet (5 mg total) by mouth daily 90 tablet 3 01/30/2020 06/27/2020 documented in this encounter Miscellaneous Notes * Telephone Encounter - Claribel Howell MA - 01/30/2020 3:40 PM CDT Ok I informed pt and appointment set up for 02/12/20 * Telephone Encounter - Pal Russell MD - 01/30/2020 3:19 PM CDT Ok, lets do like I said below please. * Telephone Encounter - Claribel Howell MA - 01/30/2020 3:04 PM CDT He still cough just not as much and just nausea twice a day * Telephone Encounter - Pal Russell MD - 01/30/2020 12:29 PM CDT These readings are too high. First, verify that the cough is better coming off the med lisinopril. Next, we need a substitute. He is to continue the med amlodipine but we need to add the metoprolol XL 25mg #30 1qd and have 11 refill. Next, he needs to remeasure a daily BP AND PULSE and have a visitnext week, in person bes but can also do the doximity later on next wednesday * Telephone Encounter - Claribel Howell MA - 01/30/2020 11:41 AM CDT BP 01/24/20 154/106 01/25/20 158/101 01/26/20 167/98 01/27/20 162/104 01/28/20 152/101 01/29/20 157/110 01/30/20 152/100 documented in this encounter Plan of Treatment Scheduled Procedures Name Priority Associated Diagnoses Date/Ti me COLONOSCOPY Colon cancer screening COLONOSCOPY Colon cancer screening documented as of this encounter Visit Diagnoses Not on filedocumented in this encounter Discontinued Medications Medication Sig Discontinue Reason Start Date End Da te amLODIPine (NORVASC) 5 mg tablet Take 1 tablet (5 mg total) by mouth daily. Reorder 08/15/2018 01/30/2020 documented as of this encounter Care Teams Dairy Lab Technician Relationship Specialty Start Date End Date Pal Russell MD PCP - General 06/08/17 09/04/21 documented as of this encounter
--- OUTSIDE RECORDS SUMMARY | 2024-06-25 14:00 | XMS_ITS | Encounter Summary ---
Author Organization [facility] Address [address] [place] [address] Phone Care Team Providers Care Mortgage Banker Name Role Phone Pal Russell MD Primary Care Provider [phone] Reason for Referral * Diagnostic Imaging (Routine) - Closed Specialty Diagnoses / Procedures Referred By Contac t Referred To Contact Radiology Diagnoses Cervical radicular pain Pain, neck Osteoarthritis of spine with radiculopathy, cervical region Procedures MRI Cervical Spine WO Contrast Beny Watson MD Phone: tel: fax: [address] [address] Referral ID Status Reason Start Date Expiration Date Visits Re quested Visits Authorized [id number] Closed 11/09/2018 05/20/2020 1 1 Encounter Details Date Type Department Care Team (Late st Contact Info) Description 11/09/2018 Orders Only [facility] Orthopaedic Surgery [address] [place] [address] Beny Watson MD [address] [place] [address] Cervical radicular pain (Primary Dx); Pain, neck; Osteoarthritis of spine with radiculopathy, cervical region Social History Tobacco Use Types Packs/Day Years Used Date Smoking Tobacco: Never Smokeless Tobacco: Never Alcohol Use Standard Drinks/Week Comments Yes 0 (1 standard drink = 0.6 oz pur e alcohol) Sex and Gender Information Value Date Recorded Sex Assigned at Not on file 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 ??Advanced degenerative disc disease at the C5-C6 level, as detailed above. Dictated by: Johnie Melgar M.D. The radiology attending physician has personally reviewed this study, and had reviewed and/or edited this written report and agrees with it. Electronically signed by: Tanvi Haas M.D. Narrative 11/23/2018 3:46 PM CDT EXAMINATION: Magnetic resonance imaging (MRI) of the cervical spine without contrast HISTORY: 58-year-old male with history of neck pain and headaches TECHNIQUE: Multiplanar multi-weighted MRI of the cervical spine was performed without intravenous contrast using the standard cervical spine protocol. COMPARISON: None available FINDINGS: There is straightening of the normal cervical lordosis but otherwise normal alignment. Vertebral bodies demonstrate normal signal intensity on all sequences. No acute fracture is identified; however, if trauma is suspected, a CT scan would be a more sensitive examination for fractures. The craniocervical junction is normal. The visualized portions of the skull base and the posterior fossa are normal. The spinal cord demonstrates normal signal intensity on all sequences. There is multilevel disc desiccation and disc bulges present. Annular fissures noted at C2-C3, C5-C6, and C6-C7. No soft tissue abnormality is identified. Normal signal voids are present in the vertebral arteries. C2-C3: The disk is normal in configuration. There is mild facet arthropathy. There is mild uncovertebral joint disease. There is mild right neuroforaminal stenosis. There is no spinal canal stenosis. C3-C4: ??Mild disc bulge. There is moderate right, mild left facet arthropathy with some stress changes within the right lamina. There is moderate uncovertebral joint disease. There is moderate right, mild left neuroforaminal stenosis. There is no spinal canal stenosis. C4-C5: ??Mild disc bulge. There is moderate facet arthropathy. There is mild uncovertebral joint disease. There is mild bilateral neuroforaminal stenosis. There is no spinal canal stenosis. C5-C6: ??Posterior disc osteophyte complex with superimposed central/left central disc protrusion. There is moderate facet arthropathy. There is moderate right, severe left uncovertebral joint disease. There is moderate right, severe left neuroforaminal stenosis. There is mild spinal canal stenosis. C6-C7: ??Mild disc bulge with superimposed central disc protrusion. There is moderate facet arthropathy. There is moderate right, mild left uncovertebral joint disease. There is mild neuroforaminal stenosis. There is no spinal canal stenosis. C7-T1: The disk is normal in configuration. There is mild facet arthropathy. There is no uncovertebral joint disease. There is no neuroforaminal stenosis. There is no spinal canal stenosis. Procedure Note Tanvi Haas MD - 11/23/2018 EXAMINATION: Magnetic resonance imaging (MRI) of the cervical spine without contrast HISTORY: 58-year-old male with history of neck pain and headaches TECHNIQUE: Multiplanar multi-weighted MRI of the cervical spine was performed without intravenous contrast using the standard cervical spine protocol. COMPARISON: None available FINDINGS: There is straightening of the normal cervical lordosis but otherwise normal alignment. Vertebral bodies demonstrate normal signal intensity on all sequences. No acute fracture is identified; however, if trauma is suspected, a CT scan would be a more sensitive examination for fractures. The craniocervical junction is normal. The visualized portions of the skull base and the posterior fossa are normal. The spinal cord demonstrates normal signal intensity on all sequences. There is multilevel disc desiccation and disc bulges present. Annular fissures noted at C2-C3, C5-C6, and C6-C7. No soft tissue abnormality is identified. Normal signal voids are present in the vertebral arteries. C2-C3: The disk is normal in configuration. There is mild facet arthropathy. There is mild uncovertebral joint disease. There is mild right neuroforaminal stenosis. There is no spinal canal stenosis. C3-C4: Mild disc bulge. There is moderate right, mild left facet arthropathy with some stress changes within the right lamina. There is moderate uncovertebral joint disease. There is moderate right, mild left neuroforaminal stenosis. There is no spinal canal stenosis. C4-C5: Mild disc bulge. There is moderate facet arthropathy. There is mild uncovertebral joint disease. There is mild bilateral neuroforaminal stenosis. There is no spinal canal stenosis. C5-C6: Posterior disc osteophyte complex with superimposed central/left central disc protrusion. There is moderate facet arthropathy. There is moderate right, severe left uncovertebral joint disease. There is moderate right, severe left neuroforaminal stenosis. There is mild spinal canal stenosis. C6-C7: Mild disc bulge with superimposed central disc protrusion. There is moderate facet arthropathy. There is moderate right, mild left uncovertebral joint disease. There is mild neuroforaminal stenosis. There is no spinal canal stenosis. C7-T1: The disk is normal in configuration. There is mild facet arthropathy. There is no uncovertebral joint disease. There is no neuroforaminal stenosis. There is no spinal canal stenosis. IMPRESSION: 1. Advanced degenerative disc disease at the C5-C6 level, as detailed above. Dictated by: Johnie Melgar M.D. The radiology attending physician has personally reviewed this study, and had reviewed and/or edited this written report and agrees with it. Electronically signed by: Tanvi Haas M.D. Beny Watson MD IM MRI PROCEDURES Final R esult documented in this encounter Visit Diagnoses Diagnosis Cervical radicular pain- Primary Pain, neck Osteoarthritis of spine with radiculopathy, cervical region Cervical radicular pain Pain, neck Osteoarthritis of spine with radiculopathy, cervical region documented in this encounter Care Teams Mortgage Banker Relationship Specialty Start Date End Date Pal Russell MD PCP - General 06/08/17 09/04/21 documented as of this encounter
--- OUTSIDE RECORDS SUMMARY | 2024-06-25 14:00 | XMS_ITS | Encounter Summary ---
Author Organization [facility] Address [address] [place] [address] Care Team Providers Care Fire Official Name Role Phone Pal Russell MD Primary Care Provider [phone] Reason for Referral * Diagnostic Imaging (Routine) - Closed Specialty Diagnoses / Procedures Referred By Contac t Referred To Contact Radiology Diagnoses Cervical radiculopathy Procedures IR Epidural Injection Cervical W Guidance Beny Watson MD Phone: tel: fax: [address] [phone] Referral ID Status Reason Start Date Expiration Date Visits Re quested Visits Authorized [id number] Closed 11/30/2018 06/10/2020 1 1 Reason for Visit * Diagnostic Imaging (Routine) - Closed Specialty Diagnoses / Procedures Referred By Contac t Referred To Contact Radiology Diagnoses Cervical radiculopathy Procedures IR Epidural Injection Cervical W Guidance Beny Watson MD Phone: tel: fax: [address] [address] Referral ID Status Reason Start Date Expiration Date Visits Re quested Visits Authorized [id number] Closed 11/30/2018 06/10/2020 1 1 Encounter Details Date Type Department Care Team (Latest Contact Info) Description 12/14/2018 8:06 AM CDT - 12/14/2018 10:00 AM CDT Hospital Encounter [facility] [address] [address] Beny Watson MD [address] [place] [address] Gamal Do MD [address] [place] [address] Cervical radiculopathy Discharge Disposition: Discharge to home or self care Social History Tobacco Use Types Packs/Day Years Used Date Smoking Tobacco: Never Smokeless Tobacco: Never Alcohol Use Standard Drinks/Week Comments Yes 0 (1 standard drink = 0.6 oz pur e alcohol) Sex and Gender Information Value Date Recorded Sex Assigned at Not on file 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 90 tablet 3 08/15/2018 01/30/2020 amoxicillin-clavu lanate (AUGMENTIN) 875-125 mg per tablet TAKE 1 TABLET BY MOUTH TWICE DAILY FOR 10 DAYS 20 tablet 08/18/2018 10/18/2019 celecoxib (CeleBREX) 200 mg capsule Take 1 capsule (200 mg total) by mouth 2 (two) times a day. 60 capsule 5 07/27/2018 03/28/2019 cyclobenzaprine (FLEXERIL) 10 mg tablet Take 1 tablet (10 mg total) by mouth 3 (three) times a day as needed for muscle spasms. 30 tablet 08/15/2018 12/16/2018 lisinopril (PRINIVIL,ZESTRIL ) 10 mg tablet Take 1 tablet (10 mg total) by mouth daily. 90 tablet 3 08/15/2018 01/03/2020 melatonin-lemon balm leaf extr 10-1 mg tablet 2 tab daily 01/30/2016 0 pravastatin (PRAVACHOL) 10 mg tablet Take 1 tablet (10 mg total) by mouth daily. 90 tablet 3 08/15/2018 01/03/2020 documented as of this encounter Discharge Disposition Disposition Code Departure Means Destination Discharge to home or self care documented in this encounter Miscellaneous Notes * Post-Procedure Note - Gamal Do MD - 12/14/2018 8:45 AM CDT Radiology Brief Post Procedure Note Attending: Gamal Do MD Sedation/Anesthesia: Local Diagnosis: neck pain Procedure Performed: cervical central epidural Procedure Findings: successful Complications: None Estimated Blood Loss: None Specimens: None Condition: Stable Full report to follow. documented in this encounter Plan of Treatment Scheduled Procedures Name Priority Associated Diagnoses Date/Ti me COLONOSCOPY Colon cancer screening COLONOSCOPY Colon cancer screening documented as of this encounter Procedures Procedure Name Priority Date/Time Associated Diagnosis Comments IR EPIDURAL INJECTION CERVICAL W GUIDANCE Schedule Routine, Read Routine (OP Routine) 12/14/2018 8:53 AM CDT Cervical radiculopathy documented in this encounter Results * IR Epidural Injection Cervical W Guidance (12/14/2018 8:53 AM CDT) Anatomical Region Laterality Modality Spine N/A X-Ray Angiograph y 12/14/2018 9:06 AM CDT Impressions 12/14/2018 9:06 AM CDT 1. ??C4-C5 central epidural under fluoroscopic guidance with coverage from C1 to C7. There was reduction of the patient's presenting pain at the conclusion of the procedure. ?? Electronically signed by: Gamal Do M.D. Narrative 12/14/2018 9:06 AM CDT EXAMINATION: C4-C5 central epidural injection under fluoroscopic guidance ?? HISTORY: 58-year-old man with neck pain and jaw pain. Cervical spine MRI on 11/23/2018 demonstrates multilevel degenerative disc disease. Cervical central epidural injection is requested. ATTENDING PRESENCE: Dr. Gamal Do, the attending radiologist, was present from the beginning to the end of the procedure. SEDATION: The patient did not require conscious sedation for the procedure. TECHNIQUE: ??The risks, benefits and alternatives were discussed and informed consent was obtained. ??Prior to beginning the procedure, Gail Protocol was performed to confirm the patient's identity and the planned procedure. ??The fluoroscopy time has been recorded in the electronic medical record. Sterile barriers used during the procedure included cap, mask, hand hygiene, sterile gloves, and sterile drape. ??Chloraprep was used for cutaneous antisepsis. The patient was placed prone on the fluoroscopy table. ??The injection site was localized with fluoroscopic guidance. ??Local anesthesia was achieved with subcutaneous injection of 1% lidocaine 2 mL. ??Under fluoroscopic guidance, a 20-gauge Tuohy needle was advanced into the epidural space at C4-C5 utilizing loss of resistance technique with Omnipaque 300 in a 10 mL syringe. ??Epidural location of the needle tip was confirmed with Omnipaque-300 1 mL. Under fluoroscopic control, a 5 mL mixture of 1% lidocaine 1 mL, Omnipaque-300 1 mL, and dexamethasone (10 mg/mL) 3 mL was injected into the epidural space. Fluoroscopic evaluation confirmed bilateral coverage of the injectate from C1 to C7. The needle was removed. ??The skin was cleansed with hydrogen peroxide and a bandage was placed. There were no complications of the procedure. ESTIMATED BLOOD LOSS: None CONDITION: Stable condition. DISCHARGED TO: Home FINDINGS: The patient initially reported moderate neck pain, and jaw pain. After the procedure, the patient reported no change in symptoms. Procedure Note Gamal Do MD - 12/14/2018 EXAMINATION: C4-C5 central epidural injection under fluoroscopic guidance HISTORY: 58-year-old man with neck pain and jaw pain. Cervical spine MRI on 11/23/2018 demonstrates multilevel degenerative disc disease. Cervical central epidural injection is requested. ATTENDING PRESENCE: Dr. Gamal Do, the attending radiologist, was present from the beginning to the end of the procedure. SEDATION: The patient did not require conscious sedation for the procedure. TECHNIQUE: The risks, benefits and alternatives were discussed and informed consent was obtained. Prior to beginning the procedure, Gail Protocol was performed to confirm the patient's identity and the planned procedure. The fluoroscopy time has been recorded in the electronic medical record. Sterile barriers used during the procedure included cap, mask, hand hygiene, sterile gloves, and sterile drape. Chloraprep was used for cutaneous antisepsis. The patient was placed prone on the fluoroscopy table. The injection site was localized with fluoroscopic guidance. Local anesthesia was achieved with subcutaneous injection of 1% lidocaine 2 mL. Under fluoroscopic guidance, a 20-gauge Tuohy needle was advanced into the epidural space at C4-C5 utilizing loss of resistance technique with Omnipaque 300 in a 10 mL syringe. Epidural location of the needle tip was confirmed with Omnipaque-300 1 mL. Under fluoroscopic control, a 5 mL mixture of 1% lidocaine 1 mL, Omnipaque-300 1 mL, and dexamethasone (10 mg/mL) 3 mL was injected into the epidural space. Fluoroscopic evaluation confirmed bilateral coverage of the injectate from C1 to C7. The needle was removed. The skin was cleansed with hydrogen peroxide and a bandage was placed. There were no complications of the procedure. ESTIMATED BLOOD LOSS: None CONDITION: Stable condition. DISCHARGED TO: Home FINDINGS: The patient initially reported moderate neck pain, and jaw pain. After the procedure, the patient reported no change in symptoms. IMPRESSION: 1. C4-C5 central epidural under fluoroscopic guidance with coverage from C1 to C7. There was reduction of the patient's presenting pain at the conclusion of the procedure. Electronically signed by: Gamal Do M.D. Beny Watson MD IMG IR PROCEDURES Final Re sult documented in this encounter Visit Diagnoses Diagnosis Cervical radiculopathy Brachial neuritis or radiculitis nos documented in this encounter Administered Medications Inactive Administered Medications - up to 3 most recent administrations Medication Order MAR Action Action Date Dose Rate Site dexamethasone (DECADRON) preservative free solution Administer over 2 Minutes, Code/trauma/sedation medication, Starting on Wed12/14/18 at 0843 Given 12/14/2018 8:43 AM CDT 30 mg iohexol (OMNIPAQUE) 300 mg iodine/mL injection solution Code/trauma/sedation medication, Starting on Wed12/14/18 at 0842 Given 12/14/2018 8:42 AM CDT 3 mL documented in this encounter Active and Recently Administered Medications Times are shown in CDT. PRN Medication Order 12/12/2018 12/13/2018 12/14/2018 dexamethasone (DECADRON) preservative free solution (CANCELED) Administer over 2 Minutes, Code/trauma/sedation medication, Starting on Wed12/14/18 at 0843 0843 (Given - Provid er: Gamal Do MD) iohexol (OMNIPAQUE) 300 mg iodine/mL injection solution (CANCELED) Code/trauma/sedation medication, Starting on Wed12/14/18 at 0842 0842 (Given - Provid er: Gamal Do MD) documented in this encounter Care Teams Fire Official Relationship Specialty Start Date End Date Pal Russell MD PCP - General 06/08/17 09/04/21 documented as of this encounter
--- OUTSIDE RECORDS SUMMARY | 2024-06-25 14:00 | XMS_ITS | Encounter Summary ---
Author Organization [facility] Address [address] [place] [address] Phone Care Team Providers Care Bartacker Name Role Phone Pal Russell MD Primary Care Provider [phone] Encounter Details Date Type Department Care Team (Late st Contact Info) Description 11/01/[address] 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 Watson. * Telephone Encounter - Pal Russell MD - 11/02/2018 9:43 AM CDT His neck specialist Dr Watson would be the provider to do this * Telephone Encounter - Concha Jha - 11/01/2018 11:12 AM CDT He needs to talk to you. Please give him a call. documented in this encounter Plan of Treatment Scheduled Procedures Name Priority Associated Diagnoses Date/Ti me COLONOSCOPY Colon cancer screening COLONOSCOPY Colon cancer screening documented as of this encounter Visit Diagnoses Not on filedocumented in this encounter Care Teams Bartacker Relationship Specialty Start Date End Date Pal Russell MD PCP - General 06/08/17 09/04/21 documented as of this encounter
--- OUTSIDE RECORDS SUMMARY | 2024-06-25 14:00 | XMS_ITS | Encounter Summary ---
Author Organization [facility] Address [address] [place] [address] Phone Care Team Providers Care Educational Interpreter Name Role Phone Pal Russell MD Primary Care Provider Reason for Referral * Diagnostic Imaging (Routine) - Closed Specialty Diagnoses / Procedures Referred By Contmigue t Referred To Contact Diagnoses Cough Procedures XR Chest Pa Lateral 2 Views Pal Russell MD Phone: tel: fax: Referral ID Status Reason Start Date Expiration Date Visits Re quested Visits Authorized [id number] Closed 11/07/2019 05/18/2021 1 1 Encounter Details Date Type Department Care Team (Late st Contact Info) Description 11/07/2019 6:20 PM CDT Telemedicine [facility] [address] [place] [address] Pal Russell MD [address] [address] Cough (Primary Dx) Social History Tobacco Use Types Packs/Day Years Used Date Smoking Tobacco: Never Smokeless Tobacco: Never Alcohol Use Standard Drinks/Week Comments Yes 0 (1 standard drink = 0.6 oz pur e alcohol) Sex and Gender Information Value Date Recorded Sex Assigned at Not on file 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 member presenting for routine planned follow up for cough since Jul This was a telemedicine visit with Sean Ritter alone which took place via Telephone. During the visit, I was located [facility] and the patient was located [facility]. The session started at 1839 and ended at 1952. The patient has been informed that the visit may not be secure and acknowledged the information. I have explained the option of participating in a telephone or video visit during the - public health emergency to the patient. After being given an opportunity to ask questions about and discuss this type of visit, the patient verbally consented to proceeding with the telephone / video visit. The patient understands that this service replaces an office visit and they may be billed and/or responsible for any applicable copayments. Today we focussed on the following concerns: 1. Cough present since Jul 2. Dry and no other symptoms 3. No f/c/s 4. No hemoptysis 5. Lots of reflux Current Outpatient Medications Medication Sig Dispense Refill ??? amLODIPine (NORVASC) 5 mg tablet Take 1 tablet (5 mg total) by mouth daily. 90 tablet 3 ??? aspirin 325 mg tablet Take 325 mg by mouth daily ??? celecoxib (CeleBREX) 200 mg capsule Take 1 capsule (200 mg total) by mouth 2 (two) times a day 60 capsule 11 ??? cyclobenzaprine (FLEXERIL) 10 mg tablet Take 1 tablet by mouth three times daily as needed for muscle spasm 30 tablet 0 ??? lisinopril (PRINIVIL,ZESTRIL) 10 mg tablet Take 1 tablet (10 mg total) by mouth daily. 90 tablet 3 ??? melatonin-lemon balm leaf extr 10-1 mg tablet 2 tab daily ??? montelukast (SINGULAIR) 10 mg tablet Take 1 tablet (10 mg total) by mouth nightly 30 tablet 11 ??? pravastatin (PRAVACHOL) 10 mg tablet Take 1 tablet (10 mg total) by mouth daily. 90 tablet 3 No current facility-administered medications for this visit. Allergies: Patient has no known allergies. Current Outpatient Medications: ??? amLODIPine (NORVASC) 5 mg tablet, Take 1 tablet (5 mg total) by mouth daily., Disp: 90 tablet, Rfl: 3 ??? aspirin [...] spasm, Disp: 30 tablet, Rfl: 0 ??? lisinopril (PRINIVIL,ZESTRIL) 10 mg tablet, Take 1 tablet (10 mg total) by mouth daily., Disp: 90 tablet, Rfl: 3 ??? melatonin-lemon balm leaf extr 10-1 mg tablet, 2 tab daily, Disp: , Rfl: ??? montelukast (SINGULAIR) 10 mg tablet, Take 1 tablet (10 mg total) by mouth nightly, Disp: 30 tablet, Rfl: 11 ??? pravastatin (PRAVACHOL) 10 mg tablet, Take 1 tablet (10 mg total) by mouth daily., Disp: 90 tablet, Rfl: 3 Patient Active Problem List Diagnosis [...] ??? Left ventricular diastolic dysfunction ??? Cough family history includes Arthritis in his father and mother; Heart attack in his brother; Heart disease in his brother and mother; Hypertension in his mother. reports that he has never smoked. He has never used smokeless tobacco. He reports current alcohol use. He reports that he does not use drugs. ROS: Feeling well. No dyspnea or chest pain on exertion. No abdominal pain, change in bowel habits,black or bloody stools. No urinary tract symptoms. No neurological complaints. Joint aches and pains are stable. OBJECTIVE: The patient sounds well, alert, oriented x 3, in no distress. There were no vitals taken for this visit. RECENT RESULTS: Recent Results (from the past 1008 hour(s)) Comprehensive metabolic panel Collection Time: 10/20/19 9:15 AM Result Value Ref Range Glucose 96 65 - 99 mg/dL BUN 16 7 - 25 mg/dL Creatinine 0.92 0.70 - 1.25 mg/dL eGFR NON-AFR. SPANISH 90 > OR = 60 mL/min/1.73m2 EGFR 104 > OR = 60 mL/min/1.73m2 BUN/creat ratio NOT APPLICABLE 6 - 22 (calc) Sodium 141 135 - 146 mmol/L Potassium, pl 4.7 3.5 - 5.3 mmol/L Chloride 108 98 - 110 mmol/L CO2 24 20 - 32 mmol/L Calcium 9.4 8.6 - 10.3 mg/dL Protein, sr 7.0 6.1 - 8.1 g/dL Albumin 4.2 3.6 - 5.1 g/dL GLOBULIN 2.8 1.9 - 3.7 g/dL (calc) Alb/glob ratio 1.5 1.0 - 2.5 (calc) Bilirubin, total 0.4 0.2 - 1.2 mg/dL Alk phos 59 35 - 144 U/L AST 16 10 - 35 U/L ALT (SGPT) 24 9 - 46 U/L Lipid panel Collection Time: 10/20/19 9:15 AM Result Value Ref Range Cholesterol 226 (H) <200 mg/dL HDL 54 > OR = 40 mg/dL Triglycerides 132 <150 mg/dL LDL 146 (H) mg/dL (calc) Chol/HDL ratio 4.2 <5.0 (calc) Non-HDL, (LDL+VLDL) 172 (H) <130 mg/dL (calc) Assessment/Plan Problem List Respiratory Cough - Primary Overview This may be reflux Current Assessment & Plan He does taker a lot of coffee and ETOH We will get a CXR and give A trial of Prilosec as a therapeutic trial Relevant Orders XR Chest Pa Lateral 2 Views Orders Placed This Encounter ??? XR Chest Pa Lateral 2 Views We did discuss that if what we did via telehealth did not make sense or if there is something missing that they should call back YADIRA so we can address any new or different concerns Pollo Russell MD documented in this encounter Miscellaneous Notes * Assessment & Plan Note - Pal Russell MD - 11/07/2019 6:50 PM CDT Associated Problem(s): Cough (Resolved 01/11/2022) He does taker a lot of coffee and ETOH We will get a CXR and give A trial of Prilosec as a therapeutic trial documented in this encounter Plan of Treatment Scheduled Orders Name Type Priority Associated Diagnoses Orde r Schedule XR Chest Pa Lateral 2 Views Imaging Schedule Routine, Read Routine (OP Routine) Cough Ordered: 11/07/2019 Scheduled Procedures Name Priority Associated Diagnoses Date/Ti me COLONOSCOPY Colon cancer screening COLONOSCOPY Colon cancer screening documented as of this encounter Visit Diagnoses Diagnosis Cough- Primary documented in this encounter Care Teams Educational Interpreter Relationship Specialty Start Date End Date Pal Russell MD PCP - General 06/08/17 09/04/21 documented as of this encounter
--- OUTSIDE RECORDS SUMMARY | 2024-06-25 14:00 | XMS_ITS | Encounter Summary ---
Author Organization [facility] Address [address] [place] [address] Phone Care Team Providers Care Public Weigher Name Role Phone Pal Russell MD Primary Care Provider [phone] Reason for Referral * Diagnostic Imaging (Routine) - Closed Specialty Diagnoses / Procedures Referred By Comfortac t Referred To Contact Radiology Diagnoses Cervical radicular pain Foraminal stenosis of cervical region Procedures IR Epidural Injection Cervical W Guidance (BILATERAL) Beny Watson MD Phone: tel: fax: [facility] [address] [place] [address] Referral ID Status Reason Start Date Expiration Date Visits Re quested Visits Authorized [id number] Closed 03/02/2019 09/10/2020 1 1 Reason for Visit * Reason Comments Pain Encounter Details Date Type Department Care Team (Late st Contact Info) Description 03/02/2019 9:45 AM CDT Office Visit [facility] Orthopaedic Surgery [address] [facility] [address] [place] [address] Beny Watson MD [address] [facility] [address] [place] [address] Cervical radicular pain (Primary Dx); Foraminal stenosis of cervical region Social History Tobacco Use Types Packs/Day Years Used Date Smoking Tobacco: Never Smokeless Tobacco: Never Alcohol Use Standard Drinks/Week Comments Yes 0 (1 standard drink = 0.6 oz pur e alcohol) Sex and Gender Information Value Date Recorded Sex Assigned at Not on file 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 1. Referral to [facility] for repeat C4/5 central epidural steroid injection under fluoroscopy and update us to report progress 2 weeks after receiving this. 2. Physical therapy, referral provided, he will get this done close to where he lives. documented in this encounter Progress Notes * Beny Sinclair MD - 03/02/2019 9:45 AM CDT ESTABLISHED PATIENT VISIT INTERIM HISTORY: Sean Ritter is a 58 y.o. male who presents to the office today for follow-up. He experienced short-term period of relief following the epidural steroid injection at C4/C5. He call back with increased symptoms subsequently. I prescribed a prednisone taper which he found helpful while he is on at.He presents today with recurrent/persistent cervical and upper periscapular pain, headaches, characterized as at initial presentation. He does not experience symptoms referring to the upper extremities, no numbness or weakness affecting the upper extremities. PHYSICAL EXAM: On examination today, the patient is alert and appropriate, and in no apparent distress. There are no sensory motor deficits affecting the upper extremities. There is no acute axial cervical spine tenderness to palpation. Cervical [id number] provokes typical symptoms in flexion and extension, side bending left and right. There are no significant areas of palpably increased tone that are tender or reproductive of typical symptoms, cervical or upper periscapular muscle groups. 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 ?? TREATMENT PLAN: We discussed things in detail today. The given the severity and nature of his symptoms, he inquiresabout pursuing an epidural steroid injection which I think is reasonable. I recommend: ?? 1. Referral to [facility] for repeat C4/5 central epidural steroid injection under fluoroscopy and update us to report progress 2 weeks after receiving this. 2. Physical therapy, referral provided, he will get this done close to where he lives. Rational for all recommendations, including relative risks, are discussed in detail. The patient expresses understanding, comfort and agreement with the plan, all questions are answered. Orders Placed This Encounter Procedures ??? IR Epidural Injection Cervical W Guidance (BILATERAL) ??? Ambulatory referral order to Physical Therapy - This note was dictated using Privepass software. This note was not read in detail; therefore, variances and inaccuracies may occur. Beny Sinclair MD Security Installer Physical Medicine and Rehabilitation [facility] Orthopedics documented in this encounter Plan of Treatment Scheduled Procedures Name Priority Associated Diagnoses Date/Ti me COLONOSCOPY Colon cancer screening COLONOSCOPY Colon cancer screening documented as of this encounter Results * IR Epidural Injection Cervical W Guidance (BILATERAL) (03/16/2019 11:55 AM CDT) Anatomical Region Laterality Modality Spine N/A Radio Fluoroscop y 03/16/2019 1:27 PM CDT Impressions 03/16/2019 1:49 PM CDT 1. ??C4-C5 central epidural under fluoroscopic guidance with coverage from C1 to C6. There was no change of the patient's presenting pain at the conclusion of the procedure. ?? Dictated by: Yara Dickey M.D. The radiology attending physician has personally reviewed this study, and had reviewed and/or edited this written report and agrees with it. Electronically signed by: Gamal Do M.D. Narrative 03/16/2019 1:49 PM CDT EXAMINATION: C4-C5 central epidural injection under fluoroscopic guidance ?? HISTORY: Cervical radicular pain. ??Prior cervical central epidural on 12/14/2018 did not improve his pain. ??Repeat injection is requested. ATTENDING PRESENCE: Dr. Do, the attending radiologist, was present from the beginning to the end of the procedure. SEDATION: The patient did not require conscious sedation for the procedure. TECHNIQUE: ??The risks, benefits and alternatives were discussed and informed consent was obtained. ??Prior to beginning the procedure, [place] Protocol was performed to confirm the patient's identity and the planned procedure. Sterile barriers used during the procedure included cap, mask, hand hygiene, sterile gloves, and sterile drape. ??Chloraprep was used for cutaneous antisepsis. The patient was placed prone on the fluoroscopy table. ??The injection site was localized with fluoroscopy guidance. ??Local anesthesia was achieved with subcutaneous injection of 1% lidocaine 2 mL. ??Under fluoroscopic guidance, a 20-gauge Tuohy needle was advanced into the epidural space at C4-C5 utilizing loss of resistance technique with Omnipaque 300 in a 10 mL syringe. ??Epidural location of the needle tip was confirmed with Omnipaque-300 1 mL. Under fluoroscopic control, a 5 mL mixture of 1% lidocaine 1mL, Omnipaque-300 1mL, and dexamethasone (10 mg/mL) 3 mL was injected into the epidural space. Fluoroscopic evaluation confirmed bilateral coverage of the injectate from C1 to C6. The needle was removed. ??The skin was cleansed with hydrogen peroxide and a bandage was placed. There were no complications of the procedure. ESTIMATED BLOOD LOSS: None CONDITION: Stable condition. DISCHARGED TO: Home FINDINGS: Fluoroscopic images demonstrate opacification of the epidural space. After the procedure, the patient reported reduction in symptoms. Procedure Note Gamal Do MD - 03/16/2019 EXAMINATION: C4-C5 central epidural injection under fluoroscopic guidance HISTORY: Cervical radicular pain. Prior cervical central epidural on 12/14/2018 did not improve his pain. Repeat injection is requested. ATTENDING PRESENCE: Dr. Do, the attending radiologist, was present from the beginning to the end of the procedure. SEDATION: The patient did not require conscious sedation for the procedure. TECHNIQUE: The risks, benefits and alternatives were discussed and informed consent was obtained. Prior to beginning the procedure, [place] Protocol was performed to confirm the patient's identity and the planned procedure. Sterile barriers used during the procedure included cap, mask, hand hygiene, sterile gloves, and sterile drape. Chloraprep was used for cutaneous antisepsis. The patient was placed prone on the fluoroscopy table. The injection site was localized with fluoroscopy guidance. Local anesthesia was achieved with subcutaneous injection of 1% lidocaine 2 mL. Under fluoroscopic guidance, a 20-gauge Tuohy needle was advanced into the epidural space at C4-C5 utilizing loss of resistance technique with Omnipaque 300 in a 10 mL syringe. Epidural location of the needle tip was confirmed with Omnipaque-300 1 mL. Under fluoroscopic control, a 5 mL mixture of 1% lidocaine 1mL, Omnipaque-300 1mL, and dexamethasone (10 mg/mL) 3 mL was injected into the epidural space. Fluoroscopic evaluation confirmed bilateral coverage of the injectate from C1 to C6. The needle was removed. The skin was cleansed with hydrogen peroxide and a bandage was placed. There were no complications of the procedure. ESTIMATED BLOOD LOSS: None CONDITION: Stable condition. DISCHARGED TO: Home FINDINGS: Fluoroscopic images demonstrate opacification of the epidural space. After the procedure, the patient reported reduction in symptoms. IMPRESSION: 1. C4-C5 central epidural under fluoroscopic guidance with coverage from C1 to C6. There was no change of the patient's presenting pain at the conclusion of the procedure. Dictated by: Yara Dickey M.D. The radiology attending physician has personally reviewed this study, and had reviewed and/or edited this written report and agrees with it. Electronically signed by: Gamal Do M.D. Beny Watson MD IMG IR PROCEDURES Final Re sult documented in this encounter Visit Diagnoses Diagnosis Cervical radicular pain- Primary Foraminal stenosis of cervical region Cervical radicular pain Foraminal stenosis of cervical region documented in this encounter Care Teams Public Weigher Relationship Specialty Start Date End Date Pal Russell MD PCP - General 06/08/17 09/04/21 documented as of this encounter
--- OUTSIDE RECORDS SUMMARY | 2024-06-25 14:00 | XMS_ITS | Encounter Summary ---
Author Organization [facility] Address [address] [place] [address] Care Team Providers Care Material Dispatcher Name Role Phone Pal Russell MD Primary Care Provider [phone] Encounter Details Date Type Department Care Team (Late st Contact Info) Description 12/20/2018 Telephone [facility] Radiology [address] [place] [address] Lisa Gregorio RN Social History Tobacco Use Types Packs/Day Years Used Date Smoking Tobacco: Never Smokeless Tobacco: Never Alcohol Use Standard Drinks/Week Comments Yes 0 (1 standard drink = 0.6 oz pur e alcohol) Sex and Gender Information Value Date Recorded Sex Assigned at Not on file 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 C4-C5 central epidural under fluoroscopic guidance with coverage from C1 to C7 performed on 12-14-[address] Do. There was reduction of the patient's presenting pain at the conclusion of the procedure. Mr. Ritter called today reporting constant pain in the right side of neck, into right jaw, and radiating into back and side of head. Prior to this injection he reports having more intermittent pain and now pain is constant in nature. He reports limited range of motion and stiffness due to sharp pain and popping in his neck. He has tried ice compresses with slight relief when applied-no lasting benefit. He took Flexeril 10 mg last night and was able to sleep. He continues to take Celebrex 200 mg BID. His pain was really bad on Wednesday (12-18-18) and Wednesday (12-19-18). His pain was rated 10/10 during the worst of his pain. His current pain level 6/10. He is not scheduled to follow up with Dr. Watson (referring physician). Message sent to Dr. Do documented in this encounter Plan of Treatment Scheduled Procedures Name Priority Associated Diagnoses Date/Ti me COLONOSCOPY Colon cancer screening COLONOSCOPY Colon cancer screening documented as of this encounter Visit Diagnoses Not on filedocumented in this encounter Care Teams Material Dispatcher Relationship Specialty Start Date End Date Pal Russell MD PCP - General 06/08/17 09/04/21 documented as of this encounter
--- OUTSIDE RECORDS SUMMARY | 2024-06-25 14:00 | XMS_ITS | Encounter Summary ---
Author Organization [facility] Address [address] [place] [address] Phone Care Team Providers Care Rn Paralegal Name Role Phone Pal Russell MD Primary Care Provider [phone] Encounter Details Date Type Department Care Team (Late st Contact Info) Description 11/30/[address] 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 A letter is being sent.Leave message for pt * Telephone Encounter - Liane Nguyen MA - 11/30/2019 9:49 AM CDT He got a message yesterday saying the x-ray order was sent over to [facility]. He is there now. They do not have it. Please call him back. documented in this encounter Plan of Treatment Scheduled Procedures Name Priority Associated Diagnoses Date/Ti me COLONOSCOPY Colon cancer screening COLONOSCOPY Colon cancer screening documented as of this encounter Visit Diagnoses Not on filedocumented in this encounter Care Teams Rn Paralegal Relationship Specialty Start Date End Date Pal Russell MD PCP - General 06/08/17 09/04/21 documented as of this encounter
--- OUTSIDE RECORDS SUMMARY | 2024-06-25 14:00 | XMS_ITS | Encounter Summary ---
Author Organization [facility] Address [address] [place] [address] Phone Care Team Providers Care Sales And Production Manager Name Role Phone Pal Russell MD Primary Care Provider Encounter Details Date Type Department Care Team (Late st Contact Info) Description 02/06/2019 Orders Only [facility] Orthopaedic Surgery [address] [place] [address] Beny Watson MD [address] [facility] [address] [place] [address] Social History Tobacco Use Types Packs/Day Years Used Date Smoking Tobacco: Never Smokeless Tobacco: Never Alcohol Use Standard Drinks/Week Comments Yes 0 (1 standard drink = 0.6 oz pur e alcohol) Sex and Gender Information Value Date Recorded Sex Assigned at Not on file 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 Gender Identity Not on file Sexual Orientation Not on file documented as of this encounter Ordered Prescriptions Prescription Sig Dispense Quantity Refills Last Filled Start Date End Date predniSONE (DELTASONE) 10 mg tablet Take 3 tab po BID for 3 days, then take 2 tab po BID for 4 days, then take 1 tab BID for 3 days 40 tablet 02/06/2019 10/18/2019 documented in this encounter Plan of Treatment Scheduled Procedures Name Priority Associated Diagnoses Date/Ti me COLONOSCOPY Colon cancer screening COLONOSCOPY Colon cancer screening documented as of this encounter Visit Diagnoses Not on filedocumented in this encounter Care Teams Sales And Production Manager Relationship Specialty Start Date End Date Pal Russell MD PCP - General 06/08/17 09/04/21 documented as of this encounter
--- OUTSIDE RECORDS SUMMARY | 2024-06-25 14:00 | XMS_ITS | Encounter Summary ---
Author Organization [facility] Address [address] [place] [address] Phone Care Team Providers Care Receiver Stocker Name Role Phone Pal Russell MD Primary Care Provider [phone] Reason for Referral * Diagnostic Imaging (Routine) - Closed Specialty Diagnoses / Procedures Referred By Massimo t Referred To Contact Radiology Diagnoses Cervical radiculopathy Procedures IR Epidural Injection Cervical W Guidance Beny Watson MD Phone: tel: fax: [address] [address] Referral ID Status Reason Start Date Expiration Date Visits Re quested Visits Authorized [id number] Closed 11/30/2018 06/10/2020 1 1 Encounter Details Date Type Department Care Team (Late st Contact Info) Description 11/30/[address] 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 ??Prior to beginning the procedure, [place] Protocol was performed to confirm the patient's [...] was obtained. Prior to beginning the procedure, [place] Protocol was performed to confirm the patient's [...] in this encounter Visit Diagnoses Diagnosis Cervical radiculopathy- Primary Brachial neuritis or radiculitis nos Cervical radiculopathy Brachial neuritis or radiculitis nos documented in this encounter Care Teams Receiver Stocker Relationship Specialty Start Date End Date Pal Russell MD PCP - General 06/08/17 09/04/21 documented as of this encounter
--- OUTSIDE RECORDS SUMMARY | 2024-06-25 14:00 | XMS_ITS | Encounter Summary ---
Author Organization [facility] Address [address] [place] [address] Care Team Providers Care Material Control Clerk Name Role Phone Pal Russell MD Primary Care Provider [phone] Reason for Referral * Diagnostic Imaging (Routine) - Closed Specialty Diagnoses / Procedures Referred By Massimo t Referred To Contact Radiology Diagnoses Cervical radicular pain Foraminal stenosis of cervical region Procedures IR Epidural Injection Cervical W Guidance (BILATERAL) Beny Watson MD Phone: tel: fax: [address] [address] Referral ID Status Reason Start Date Expiration Date Visits Re quested Visits Authorized [id number] Closed 03/02/2019 09/10/2020 1 1 Reason for Visit * Diagnostic Imaging (Routine) - Closed Specialty Diagnoses / Procedures Referred By Contac t Referred To Contact Radiology Diagnoses Cervical radicular pain Foraminal stenosis of cervical region Procedures IR Epidural Injection Cervical W Guidance (BILATERAL) Beny Watson MD Phone: tel: fax: [address] [address] Referral ID Status Reason Start Date Expiration Date Visits Re quested Visits Authorized [id number] Closed 03/02/2019 09/10/2020 1 1 Encounter Details Date Type Department Care Team (Latest Contact Info) Description 03/16/2019 10:23 AM CDT - 03/16/2019 12:00 PM CDT Hospital Encounter [facility] Radiology [address] [facility] [place] [address] Beny Watson MD [address] [place] [address] Gamal Do MD [address] [place] [address] Cervical radicular pain; Foraminal stenosis of cervical region Discharge Disposition: Discharge to home or self care Social History Tobacco Use Types Packs/Day Years Used Date Smoking Tobacco: Never Smokeless Tobacco: Never Alcohol Use Standard Drinks/Week Comments Yes 0 (1 standard drink = 0.6 oz pur e alcohol) Sex and Gender Information Value Date Recorded Sex Assigned at Not on file 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 90 tablet 3 08/15/2018 01/03/2020 melatonin-lemon balm leaf extr 10-1 mg tablet 2 tab daily 01/30/2016 0 pravastatin (PRAVACHOL) 10 mg tablet Take 1 tablet (10 mg total) by mouth daily. 90 tablet 3 08/15/2018 01/03/2020 predniSONE (DELTASONE) 10 mg tablet Take 3 tab po BID for 3 days, then take 2 tab po BID for 4 days, then take 1 tab BID for 3 days 40 tablet 02/06/2019 10/18/2019 documented as of this encounter Discharge Disposition Disposition Code Departure Means Destination Discharge to home or self care documented in this encounter Nursing Notes * Bella Abbott RN - 03/16/2019 11:55 AM CDT Needle removed intact. * Bella Abbott RN - 03/16/2019 11:50 AM CDT Needle puncture. documented in this encounter Miscellaneous Notes * Post-Procedure Note - Gamal Do MD - 03/16/2019 12:00 PM CDT Radiology Brief Post Procedure Note Attending: Gamal Do MD Distribution Estimator: Noble Sedation/Anesthesia: Local Diagnosis: Cervical radiculopathy Procedure Performed: cervical central epidural injection using fluoroscopic guidance. Procedure Findings: successful Complications: None Estimated Blood [...] GUIDANCE Schedule Routine, Read Routine (OP Routine) 03/16/2019 11:55 AM CDT Cervical radicular pain Foraminal stenosis of cervical region documented in this encounter Results * IR [...] was obtained. ??Prior to beginning the procedure, [place] Protocol was performed to confirm the patient's [...] was obtained. Prior to beginning the procedure, [place] Protocol was performed to confirm the patient's [...] the conclusion of the procedure. Dictated by: Livingston Noble, M.D. The radiology attending physician has personally reviewed this study, and had reviewed and/or edited this written report and agrees with it. Electronically signed by: Gamal Do M.D. us Beny Watson MD IMG IR PROCEDURES Final Re sult documented in this encounter Visit Diagnoses Diagnosis Cervical radicular pain Foraminal stenosis of cervical region documented in this encounter Administered Medications Inactive Administered Medications - up to 3 most recent administrations Medication Order MAR Action Action Date Dose Rate Site dexamethasone (DECADRON) preservative free solution Administer over 2 Minutes, Code/trauma/sedation medication, Starting on Mandy 03/16/19 at 1155 Given 03/16/2019 11:55 AM CDT 30 mg iohexol (OMNIPAQUE) 300 mg iodine/mL injection solution Code/trauma/sedation medication, Starting on Mandy 03/16/19 at 1155 Given 03/16/2019 11:55 AM CDT 3 mL documented in this encounter Active and Recently Administered Medications Times are shown in CDT. PRN Medication Order 03/14/2019 03/15/2019 03/16/2019 dexamethasone (DECADRON) preservative free solution (COMPLETED) Administer over 2 Minutes, Code/trauma/sedation medication, Starting on Mandy 03/16/19 at 1155 1155 (Given - Provid er: Gamal Do MD) iohexol (OMNIPAQUE) 300 mg iodine/mL injection solution (COMPLETED) Code/trauma/sedation medication, Starting on Mandy 03/16/19 at 1155 1155 (Given - Provid er: Gamal Do MD) documented in this encounter Care Teams Material Control Clerk Relationship Specialty Start Date End Date Pal Russell MD PCP - General 06/08/17 09/04/21 documented as of this encounter
--- OUTSIDE RECORDS SUMMARY | 2024-06-25 14:00 | XMS_ITS | Encounter Summary ---
Author Organization [facility] Address [address] [place] [address] Phone Care Team Providers Care Triple Valve Tester Name Role Phone Pal Russell MD Primary Care Provider Encounter Details Date Type Department Care Team (Late st Contact Info) Description 12/06/2019 Telephone [facility] [address] [place] [address] Pal Russell MD [address] [phone] Social History Tobacco Use Types Packs/Day Years Used Date Smoking Tobacco: Never Smokeless Tobacco: Never Alcohol Use Standard Drinks/Week Comments Yes 0 (1 standard drink = 0.6 oz pur e alcohol) Sex and Gender Information Value Date Recorded Sex Assigned at Not on file 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 * Telephone Encounter - Claribel Howell MA - 12/07/2019 10:39 AM CDT Ok will do * Telephone Encounter - Pal Russell MD - 12/07/2019 10:19 AM CDT Good copy, will you get it and physically put it in my hands? * Telephone Encounter - Claribel Howell MA - 12/07/2019 7:49 AM CDT The paperwork that was faxed is in your office * Telephone Encounter - Claribel Howell MA - 12/06/2019 4:50 PM CDT waiting for fax * Telephone Encounter - Pal Russell MD - 12/06/2019 2:38 PM CDT He is doing this at [facility] and they are not part of the electronic environment we work in, also he is not on mychart so we are forced to use phone messages for everything. See if Ms Orantes has a copy of it We cannot turn around results from stuff like this that is faxed or what not very quickly due to these things. * Telephone Encounter - Liane Nguyen MA - 12/06/2019 1:49 PM CDT He had a CXR. He would like the results. documented in this encounter Plan of Treatment Scheduled Procedures Name Priority Associated Diagnoses Date/Ti me COLONOSCOPY Colon cancer screening COLONOSCOPY Colon cancer screening documented as of this encounter Visit Diagnoses Not on filedocumented in this encounter Care Teams Triple Valve Tester Relationship Specialty Start Date End Date Pal Russell MD PCP - General 06/08/17 09/04/21 documented as of this encounter
--- OUTSIDE RECORDS SUMMARY | 2024-06-25 14:00 | XMS_ITS | Encounter Summary ---
Author Organization [facility] Address [address] [place] [address] Phone Care Team Providers Care Licensed Dispensing Optician Name Role Phone Pal Russell MD Primary Care Provider Encounter Details Date Type Department Care Team (Latest Contact Info) Description 10/18/2019 7:40 PM CDT Telemedicine [address] [address] Pal Russell MD [address] [phone] Pure hypercholesterolemia (Primary Dx); Cervical radiculopathy; Chronic coronary artery disease; Cough Social History Tobacco Use Types Packs/Day Years Used Date Smoking Tobacco: Never Smokeless Tobacco: Never Alcohol Use Standard Drinks/Week Comments Yes 0 (1 standard drink = 0.6 oz pur e alcohol) Sex and Gender Information Value Date Recorded Sex Assigned at Not on file 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 member presenting for routine planned follow up for a light cough This was a telemedicine visit with Sean Ritter alone which took place via telephone. During the visit, I was located [facility] and the patient was located [facility]. The session started at 2038 and ended at 2101 The patient has been informed that the visit may not be secure and acknowledged the information. I have explained the option of participating in a telephone or video visit during the COVID-19 public health emergency to the patient. After being given an opportunity to ask questions about and discuss this type of visit, the patient verbally consented to proceeding with the telephone / video visit. The patient understands that this service replaces an office visit and they may be billed and/or responsible for any applicable copayments. Today we focussed on the following concerns: 1. No SOB and no fever 2. Fe started a light cough 3. Some stuffiness and all provoked after moving to a new home.and lots of new furniture and carpet 4. Also on high dose Celebrex and has not had lab x 2 yr 5. Really can tell the neck is terribly painful missing even one dose. Ended up w/ injection 2018 Current Outpatient Medications Medication Sig Dispense Refill ??? aspirin 325 mg tablet Take 325 mg by mouth daily ??? amLODIPine (NORVASC) 5 mg tablet Take 1 tablet (5 mg total) by mouth daily. 90 tablet 3 ??? celecoxib (CeleBREX) 200 mg capsule TAKE 1 CAPSULE BY MOUTH TWICE DAILY 60 capsule 5 ??? cyclobenzaprine (FLEXERIL) 10 mg tablet Take 1 tablet by mouth three times daily as needed for muscle spasm 30 tablet 0 ??? lisinopril (PRINIVIL,ZESTRIL) 10 mg tablet Take 1 tablet (10 mg total) by mouth daily. 90 tablet 3 ??? melatonin-lemon balm leaf extr 10-1 mg tablet 2 tab daily ??? pravastatin (PRAVACHOL) 10 mg tablet Take 1 tablet (10 mg total) by mouth daily. 90 tablet 3 No current facility-administered medications for this visit. Allergies: Patient has no known allergies. Current Outpatient Medications: ??? aspirin 325 mg tablet, Take 325 mg by mouth daily, Disp: , Rfl: ??? amLODIPine (NORVASC) 5 mg tablet, Take 1 tablet (5 mg total) by mouth daily., Disp: 90 tablet, Rfl: 3 ??? celecoxib (CeleBREX) 200 mg capsule, TAKE 1 CAPSULE BY MOUTH TWICE DAILY, Disp: 60 capsule, Rfl: 5 ??? cyclobenzaprine (FLEXERIL) 10 mg tablet, Take 1 tablet by mouth three times daily as needed formuscle spasm, Disp: 30 tablet, Rfl: 0 ??? lisinopril (PRINIVIL,ZESTRIL) 10 mg tablet, Take 1 tablet (10 mg total) by mouth daily., Disp: 90 tablet, Rfl: 3 ??? melatonin-lemon balm leaf extr 10-1 mg tablet, 2 tab daily, Disp: , Rfl: ??? pravastatin (PRAVACHOL) 10 mg tablet, Take [...] angina (CMS/HCC) ??? Left ventricular diastolic dysfunction family history includes Arthritis in his father [...] vitals taken for this visit. RECENT RESULTS: No results found for this or any previous visit (from the past 1008 hour(s)). Assessment/Plan Problem List Nervous Cervical radiculopathy (Chronic) Overview Impression: will check the films Current Assessment & Plan Significant DJD and needed injection and now on chronic NSAID w/ good effect Check the labs and refill Circulatory Chronic coronary artery disease (Chronic) Overview Description: this was in 2007 and was hospitalized at the . Dr Kay did the LHC: 40%LAD and 30% RCA and LCx with slower flow in RCA. -->med management Impression: the left arm seems very much a discogenic problem but with this hx, ekg and stress echoalso needed Current Assessment & Plan Asa 81 needed Endocrine/Metabolic Hyperlipidemia - Primary (Chronic) Current Assessment & Plan Check LDL and CMP Orders Placed This Encounter ??? DISCONTD: aspirin 81 mg enteric coated tablet ??? aspirin 325 mg tablet We did discuss that if what we did via telehealth did not make sense or if there is something missing that they should call back YADIRA so we can address any new or different concerns Polol Russell MD documented in this encounter Miscellaneous Notes * Assessment & Plan Note - Pal Russell MD - 10/18/2019 9:00 PM CDT Associated Problem(s): Cough (Resolved 01/11/2022) Will give a course of singulair 10 * Assessment & Plan Note - Pal Russell MD - 10/18/2019 8:56 PM CDT Associated Problem(s): Chronic coronary artery disease Asa 81 needed * Assessment & Plan Note - Pal Russell MD - 10/18/2019 8:54 PM CDT Associated Problem(s): Cervical radiculopathy Significant DJD and needed injection and now on chronic NSAID w/ good effect Check the labs and refill * Assessment & Plan Note - Pal Russell MD - 10/18/2019 8:54 PM CDT Associated Problem(s): Hyperlipidemia Check LDL and CMP documented in this encounter Plan of Treatment Scheduled Procedures Name Priority Associated Diagnoses Date/Ti me COLONOSCOPY Colon cancer screening COLONOSCOPY Colon cancer screening documented as of this encounter Procedures Procedure Name Priority Date/Time Associated Diagnosis Comments LIPID PANEL Routine 10/20/2019 9:15 AM CDT Pure hypercholesterolem ia Cervical radiculopathy Chronic coronary artery disease COMPREHENSIVE METABOLIC PANEL Routine 10/20/2019 9:15 AM CDT Pure hypercholesterolem ia Cervical radiculopathy Chronic coronary artery disease documented in this encounter Results * (ABNORMAL) Lipid panel (10/20/2019 9:15 AM CDT) Cholesterol 226(H) <200 mg/dL [facility] [place] HDL 54 > OR = 40 mg/dL [facility] Triglycerides 132 <150 mg/dL [facility] [place] LDL 146(H) mg/dL (calc) [facility] [place] Comment: Reference range: <100 Desirable range <100 mg/dL for primary prevention; ?? <70 mg/dL for patients with CHD or diabetic patients with > or = 2 CHD risk factors. LDL-C is now calculated using the Sunny-Kvng calculation, which is a validated novel method providing better accuracy than the Friedewald equation in the estimation of LDL-C. Sunny AGUILAR et al. YUDY. 2013;310(19): 6943-7995 (http://education.GridCraft.Invenias/faq/VZP895) Chol/HDL ratio 4.2 <5.0 (calc) [facility] [place] Non-HDL, (LDL+VLDL) 172(H) <130 mg/dL (calc) [facility] [place] Comment: For patients with diabetes plus 1 major ASCVD risk factor, treating to a non-HDL-C goal of <100 mg/dL (LDL-C of <70 mg/dL) is considered a therapeutic option. Blood specimen (specimen) 10/20/2019 9:15 AM CDT 10/20/2019 9:17 AM CDT Narrative [facility] - 10/21/2019 3:20 AM CDT FASTING:YES FASTING: YES Resulting Agency Comment Performing Organization Information: ?Site ID: [place] ?Name: [facility] ?Address: [address] [address] ?Director: Gregor Easley D.O., MPH us Pal Russell MD LAB BLOOD ORDERABLES Final Res ult [facility] [place] * Comprehensive metabolic panel (10/20/2019 9:15 AM CDT) Glucose 96 65 - 99 mg/dL [facility] [place] Comment: ? Fasting reference interval BUN 16 7 - 25 mg/dL [facility] [place] Creatinine 0.92 0.70 - 1.25 mg/dL [facility] [place] Comment: For patients >49 years of age, the reference limit for Creatinine is approximately 13% higher for people identified as -Tunisian. eGFR NON-AFR. SOUTH KOREAN 90 > OR = 60 mL/min/1 .73m2 [facility] [place] EGFR 104 > OR = 60 mL/min/1 .73m2 [facility] BUN/creat ratio NOT APPLICABLE 6 - 22 (calc) [facility] [place] Sodium 141 135 - 146 mmol/L [facility] [place] Potassium, pl 4.7 3.5 - 5.3 mmol/L [facility] [place] Chloride 108 98 - 110 mmol/L [facility] [place] CO2 24 20 - 32 mmol/L [facility] [place] Calcium 9.4 8.6 - 10.3 mg/dL [facility] [place] Protein, sr 7.0 6.1 - 8.1 g/dL [facility] [place] Albumin 4.2 3.6 - 5.1 g/dL [facility] [place] GLOBULIN 2.8 1.9 - 3.7 g/dL (calc) [facility] [place] Alb/glob ratio 1.5 1.0 - 2.5 (calc) [facility] [place] Bilirubin, total 0.4 0.2 - 1.2 mg/dL [facility] Alk phos 59 35 - 144 U/L [facility] AST 16 10 - 35 U/L [facility] ALT (SGPT) 24 9 - 46 U/L [facility] Blood specimen (specimen) 10/20/2019 9:15 AM CDT 10/20/2019 9:17 AM CDT Narrative [facility] - 10/21/2019 3:20 AM CDT FASTING:YES FASTING: YES Resulting Agency Comment Performing Organization Information: ?Site ID: CHEMO ?Name: [facility] ?Address: [facility] [address] [address] ?Director: Gregor Easley D.O., MPH Pal Russell MD LAB BLOOD ORDERABLES Final Res ult [facility] [employer] [place] documented in this encounter Visit Diagnoses Diagnosis Pure hypercholesterolemia- Primary Cervical radiculopathy Brachial neuritis or radiculitis nos Chronic coronary artery disease Coronary atherosclerosis of unspecified type of vessel, point lay ira or graft Cough documented in this encounter Discontinued Medications Medication Sig Discontinue Reason Start Date End Da te amoxicillin-clavulanate (AUGMENTIN) 875-125 mg per tablet TAKE 1 TABLET BY MOUTH TWICE DAILY FOR 10 DAYS 08/18/2018 10/18/2019 predniSONE (DELTASONE) 10 mg tablet Take 3 tab po BID for 3 days, then take 2 tab po BID for 4 days, then take 1 tab BID for 3 days 02/06/2019 10/18/2019 aspirin 81 mg enteric coated tablet Take 81 mg by mouth daily 10/18/2019 celecoxib (CeleBREX) 200 mg capsule TAKE 1 CAPSULE BY MOUTH TWICE DAILY Reorder 03/29/2019 10/18/2019 documented as of this encounter Historical Medications * This list may reflect changes made after this encounter. aspirin 325 mg tablet Take 325 mg by mouth daily 10/28/2021 aspirin 81 mg enteric coated tablet Take 81 mg by mouth daily 10/18/2019 added in this encounter Care Teams Licensed Dispensing Optician Relationship Specialty Start Date End Date Pal Russell MD PCP - General 06/08/17 09/04/21 documented as of this encounter
--- OUTSIDE RECORDS SUMMARY | 2024-06-25 14:00 | XMS_ITS | Encounter Summary ---
Author Organization [facility] Address [address] [place] [address] Phone Care Team Providers Care Cytotechnologist/Histotechnologist Name Role Phone Pal Russell MD Primary Care Provider [phone] Encounter Details Date Type Department Care Team (Late st Contact Info) Description 02/01/2019 Telephone [facility] Orthopaedic Surgery [address] [place] [address] Beny Watson MD [address] [facility] [address] [place] [address] Social History Tobacco Use Types Packs/Day Years Used Date Smoking Tobacco: Never Smokeless Tobacco: Never Alcohol Use Standard Drinks/Week Comments Yes 0 (1 standard drink = 0.6 oz pur e alcohol) Sex and Gender Information Value Date Recorded Sex Assigned at Not on file 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 * Telephone Encounter - Beny Sinclair MD - 02/21/2019 5:40 PM CDT Will advise further pending evaluation next week. * Telephone Encounter - Leidy Perry MA - 02/21/2019 3:47 PM CDT For your review. * Telephone Encounter - Blaze Evans B.A. - 02/21/2019 3:41 PM CDT Pt calling to update. States Prednisone didn't really help much. Asking about next step in care. Stats is still in a good amount of pain. Pain can get to a 7. States is worse in the mornings. Pt is at [phone]. Pt did not know about upcomming appt on 03/02. Expressed understanding and will be at that appt. * Telephone Encounter - Leidy Perry MA - 02/06/2019 2:19 PM CDT Spoke with patient and sent in medication and set up follow up appointment. * Telephone Encounter - Blaze Evans B.A. - 02/06/2019 2:13 PM CDT Pt calling about previous note. Pt confirmed [facility] on file. Pt is at [phone]. * Telephone Encounter - Beny Sinclair MD - 02/06/2019 11:25 AM CDT A 10 day prednisone taper (higher dose than the methylprednisolone he has had in the past) and follow-up for re-evaluation would be reasonable based on lack of improvement post injection. However, the severity of pain reported does not appear consistent with our working diagnosis based on my evaluation of him, and it is likely in his best interest to go to the emergency room for further evaluation. * Telephone Encounter - Leidy Perry MA - 02/06/2019 9:46 AM CDT Spoke with patient and he stated that he is having the same symptoms as before the injection. He stated that the pain is going in a figure 8 motion from left to right and front to back. I advised himthat if he needed to ED for pain relief would be appropriate and to let us know if that's what he decides to do. * Telephone Encounter - Leidy Perry MA - 02/06/2019 9:44 AM CDT Please review * Telephone Encounter - Dinorah Webb - 02/06/2019 8:25 AM CDT Patient is calling back has not gotten a call back his pain is now at a 20 on pain scale per patient can't get comfortable. Cant lay get in and or out bed without severe pain. He doesn't know how to respond to below question he can't walk it is that bad even though the pain is coming from his neck per patient. Not sure if injection or medication is the answer he will like to discuss further patient phone is [phone] * Telephone Encounter - Beny Sinclair MD - 02/03/2019 3:41 PM CDT Based on injection report/pain diary - it does not appear the injection was helpful? If this is not the case, and injection has afforded him reduction in symptoms but feels need for additional improvement, ok to repeat. If it was not helpful at all, please get an update on symptoms (if any change from my initial evaluation of him). It may be that a change in injection or reevaluation prior to further treatment may be appropriate. * Telephone Encounter - Leidy Perry MA - 02/02/2019 3:23 PM CDT RIVKA: 08/30/18 12/14/18: [facility] Radiology for C5/6 central epidural steroid injection under fluoroscopy THERAPEUTIC INJECTION Rate each of the followin% 25% 50% 75% 100% Immediately? 25% 6 hours after? 25% 24 hours after? 0% 4 days after? 0% 1 week after? 0% 10 days after? 0% 2 weeks after? 0% How would you rate your overall improvement since your injection? Poor Are you currently in Physical Therapy? No How many sessions have you attended? Are you performing a monitored home exercise program? No Has your injection improved your ability to perform activities of daily living with less pain? No Are you happy with your improvement level? No * Telephone Encounter - Blaze Evans B.A. - 02/01/2019 11:38 AM CDT Pt states neck pain has returned. States at times pain is worse than before last INJ. States pain at times can get to a 9-10. States right now a 6. Requesting to schedule another INJ. Last INJ 12/14/18. Pt is at [phone]. documented in this encounter Plan of Treatment Scheduled Procedures Name Priority Associated Diagnoses Date/Ti me COLONOSCOPY Colon cancer screening COLONOSCOPY Colon cancer screening documented as of this encounter Visit Diagnoses Not on filedocumented in this encounter Care Teams Cytotechnologist/Histotechnologist Relationship Specialty Start Date End Date Pal Russell MD PCP - General 06/08/17 09/04/21 documented as of this encounter
--- OUTSIDE RECORDS SUMMARY | 2024-06-25 14:00 | XMS_ITS | Encounter Summary ---
Author Organization [facility] Address [address] [place] [address] Phone Care Team Providers Care Family Medicine Chair Name Role Phone Pal Russell MD Primary Care Provider [phone] Encounter Details Date Type Department Care Team (Late st Contact Info) Description 11/07/2018 Telephone [facility] Orthopaedic Surgery [address] [place] [address] Beny Membreno MD [address] [facility] [address] [place] [address] Social History Tobacco Use Types Packs/Day Years Used Date Smoking Tobacco: Never Smokeless Tobacco: Never Alcohol Use Standard Drinks/Week Comments Yes 0 (1 standard drink = 0.6 oz pur e alcohol) Sex and Gender Information Value Date Recorded Sex Assigned at Not on file 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 Will call patient once Dr. Membreno is able to view results and set up cervical injection. * Telephone Encounter - Susu Sharif CPhT - 11/07/2018 12:28 PM CDT Pt is calling to get a MRI schedule. documented in this encounter Plan of Treatment Scheduled Procedures Name Priority Associated Diagnoses Date/Ti me COLONOSCOPY Colon cancer screening COLONOSCOPY Colon cancer screening documented as of this encounter Visit Diagnoses Not on filedocumented in this encounter Care Teams Family Medicine Chair Relationship Specialty Start Date End Date Pal Russell MD PCP - General 06/08/17 09/04/21 documented as of this encounter
--- OUTSIDE RECORDS SUMMARY | 2024-06-25 14:00 | XMS_ITS | Encounter Summary ---
Author Organization [facility] Address [address] [place] [address] Phone Care Team Providers Care Binder Stripper Machine Name Role Phone Pal Russell MD Primary Care Provider [phone] Encounter Details Date Type Department Care Team (Late st Contact Info) Description 11/29/2019 Telephone [facility] [address] [place] [address] Pal Russell MD [address] [id number] Social History Tobacco Use Types Packs/Day Years Used Date Smoking Tobacco: Never Smokeless Tobacco: Never Alcohol Use Standard Drinks/Week Comments Yes 0 (1 standard drink = 0.6 oz pur e alcohol) Sex and Gender Information Value Date Recorded Sex Assigned at Not on file 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 Russell wanted him to have an x-ray. Can the order be sent to [facility]. That facility is a lot closer to him. Please let him know. documented in this encounter Plan of Treatment Scheduled Procedures Name Priority Associated Diagnoses Date/Ti me COLONOSCOPY Colon cancer screening COLONOSCOPY Colon cancer screening documented as of this encounter Visit Diagnoses Not on filedocumented in this encounter Care Teams Binder Stripper Machine Relationship Specialty Start Date End Date Pal Russell MD PCP - General 06/08/17 09/04/21 documented as of this encounter
--- OUTSIDE RECORDS SUMMARY | 2024-06-25 14:00 | XMS_ITS | Encounter Summary ---
Author Organization [facility] Address [address] [place] [address] Phone Care Team Providers Care Outside Sales Professional Name Role Phone Pal Russell MD Primary Care Provider [phone] Encounter Details Date Type Department Care Team (Late st Contact Info) Description 11/08/[address] 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
--- OUTSIDE RECORDS SUMMARY | 2024-06-25 14:00 | XMS_ITS | Encounter Summary ---
Author Organization [facility] Address [address] [place] [address] Care Team Providers Care Fitness Technician Name Role Phone Pal Russell MD Primary Care Provider [phone] Encounter Details Date Type Department Care Team (Late st Contact Info) Description 12/20/2018 Telephone 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 Do's response to previous message. Instructed patient to give the steroid more time to work. Meanwhile continue to use ice, Celebrex and Flexeril asneeded. If his pain becomes too severe he will need to go to the ER documented in this encounter Plan of Treatment Scheduled Procedures Name Priority Associated Diagnoses Date/Ti me COLONOSCOPY Colon cancer screening COLONOSCOPY Colon cancer screening documented as of this encounter Visit Diagnoses Not on filedocumented in this encounter Care Teams Fitness Technician Relationship Specialty Start Date End Date Pal Russell MD PCP - General 06/08/17 09/04/21 documented as of this encounter
--- OUTSIDE RECORDS SUMMARY | 2024-06-25 14:00 | XMS_ITS | Encounter Summary ---
Author Organization [facility] Address [address] [place] [address] Phone Care Team Providers Care Tree Surgeon Helper Name Role Phone Pal Russell MD Primary Care Provider [phone] Encounter Details Date Type Department Care Team (Late st Contact Info) Description 12/12/2019 Orders Only [address] [address] Scanning, Provider Social History Tobacco Use Types Packs/Day Years Used Date Smoking Tobacco: Never Smokeless Tobacco: Never Alcohol Use Standard Drinks/Week Comments Yes 0 (1 standard drink = 0.6 oz pur e alcohol) Sex and Gender Information Value Date Recorded Sex Assigned at Not on file 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 Gender Identity Not on file Sexual Orientation Not on file documented as of this encounter Plan of Treatment Scheduled Procedures Name Priority Associated Diagnoses Date/Ti me COLONOSCOPY Colon cancer screening COLONOSCOPY Colon cancer screening documented as of this encounter Procedures Procedure Name Priority Date/Time Associated Diagnosis Comments SCAN - RADIOLOGY/IMAGING 12/12/2019 11:09 AM CDT documented in this encounter Results * SCAN - RADIOLOGY/IMAGING (12/12/2019 11:09 AM CDT) Anatomical Region Laterality Modality Other us Provider Scanning Final Result documented in this encounter Visit Diagnoses Not on filedocumented in this encounter Care Teams Tree Surgeon Helper Relationship Specialty Start Date End Date Pal Russell MD PCP - General 06/08/17 09/04/21 documented as of this encounter
--- OUTSIDE RECORDS SUMMARY | 2024-06-25 14:00 | XMS_ITS | Encounter Summary ---
Author Organization [facility] Address [address] [place] [address] Care Team Providers Care Measurement Operator Name Role Phone Pal Russell MD Primary Care Provider [phone] Reason for Referral * Diagnostic Imaging (Routine) - Closed Specialty Diagnoses / Procedures Referred By Massimo steven Referred To Contact Radiology Diagnoses Cervical radicular pain Pain, neck Osteoarthritis of spine with radiculopathy, cervical region Procedures MRI Cervical Spine WO Contrast Beny Watson MD Phone: tel: fax: [address] [address] Referral ID Status Reason Start Date Expiration Date Visits Re quested Visits Authorized [id number] Closed 11/09/2018 05/20/2020 1 1 Reason for Visit * Diagnostic Imaging (Routine) - Closed Specialty Diagnoses / Procedures Referred By Massimo t Referred To Contact Radiology Diagnoses Cervical radicular pain Pain, neck Osteoarthritis of spine with radiculopathy, cervical region Procedures MRI Cervical Spine WO Contrast Beny Watson MD Phone: tel: fax: [address] [address] Referral ID Status Reason Start Date Expiration Date Visits Re quested Visits Authorized [id number] Closed 11/09/2018 05/20/2020 1 1 Encounter Details Date Type Department Care Team (Latest Contact Info) Description 11/23/2018 10:00 AM CDT - 11/23/2018 11:59 PM CDT Hospital Encounter [facility] [address] [place] [address] Beny Watson MD [address] [facility] [address] [place] [address] Cervical radicular pain; Pain, neck; Osteoarthritis of spine with radiculopathy, cervical region Discharge Disposition: Discharge to home or self care Social History Tobacco Use Types Packs/Day Years Used Date Smoking Tobacco: Never Smokeless Tobacco: Never Alcohol Use Standard Drinks/Week Comments Yes 0 (1 standard drink = 0.6 oz pur e alcohol) Sex and Gender Information Value Date Recorded Sex Assigned at Not on file 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 Beny Watson MD IMG MRI PROCEDURES Final R esult documented in this encounter Visit Diagnoses Diagnosis Cervical radicular pain Pain, neck Osteoarthritis of spine with radiculopathy, cervical region documented in this encounter Care Teams Measurement Operator Relationship Specialty Start Date End Date Pal Russell MD PCP - General 06/08/17 09/04/21 documented as of this encounter
--- OUTSIDE RECORDS SUMMARY | 2024-06-25 14:00 | XMS_ITS | Encounter Summary ---
Author Organization [facility] Address [address] [place] [address] Phone Care Team Providers Care Medical Attendant Name Role Phone Pal Russell MD Primary Care Provider [phone] Encounter Details Date Type Department Care Team (Late st Contact Info) Description 09/02/2018 Orders Only [facility] Orthopaedic Surgery [address] [facility] [address] [place] [address] Beny Watson MD [address] [place] [address] Social History Tobacco Use Types Packs/Day Years Used Date Smoking Tobacco: Never Smokeless Tobacco: Never Alcohol Use Standard Drinks/Week Comments Yes 0 (1 standard drink = 0.6 oz pur e alcohol) Sex and Gender Information Value Date Recorded Sex Assigned at Not on file 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
--- OUTSIDE RECORDS SUMMARY | 2024-06-25 14:00 | XMS_ITS | Encounter Summary ---
Author Organization [facility] Address [address] [place] [address] Phone Care Team Providers Care Stock Preparation Supervisor Name Role Phone Pal Russell MD Primary Care Provider [phone] Encounter Details Date Type Department Care Team (Late st Contact Info) Description 12/15/[address] 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 Gender Identity Not on file Sexual Orientation Not on file documented as of this encounter Ordered Prescriptions Prescription Sig Dispense Quantity Refills Last Filled Start Date End Date benzonatate (TESSALON) 200 mg capsuleIndications :Cough Take 1 capsule (200 mg total) by mouth 3 (three) times a day as needed for cough 42 capsule 12/15/2019 0 benzonatate (TESSALON) 200 mg capsuleIndications :Cough Take 1 capsule (200 mg total) by mouth 3 (three) times a day as needed for cough 42 capsule 12/15/2019 0 benzonatate (TESSALON) 200 mg capsuleIndications :Cough Take 1 capsule (200 mg total) by mouth 3 (three) times a day as needed for cough 42 capsule 12/15/2019 0 documented in this encounter Miscellaneous Notes * Telephone Encounter - Claribel Howell MA - 12/15/2019 4:30 PM CDT Sent medication to pharmacy * Telephone Encounter - Pal Russell MD - 12/15/2019 4:06 PM CDT Tessalon vicki [phone] 1tid * Telephone Encounter - Liane Nguyen MA - 12/15/2019 11:52 AM CDT His CXR was negative. He still has a cough. Should he be on a cough medication? documented in this encounter Plan of Treatment Scheduled Procedures Name Priority Associated Diagnoses Date/Ti me COLONOSCOPY Colon cancer screening COLONOSCOPY Colon cancer screening documented as of this encounter Visit Diagnoses Diagnosis Cough- Primary documented in this encounter Discontinued Medications Medication Sig Discontinue Reason Start Date End Da te benzonatate (TESSALON) 200 mg capsuleIndications:Cough Take 1 capsule (200 mg total) by mouth 3 (three) times a day as needed for cough Error 12/15/2019 12/15/2019 benzonatate (TESSALON) 200 mg capsuleIndications:Cough Take 1 capsule (200 mg total) by mouth 3 (three) times a day as needed for cough 12/15/2019 12/15/2019 documented as of this encounter Care Teams Stock Preparation Supervisor Relationship Specialty Start Date End Date Pal Russell MD PCP - General 06/08/17 09/04/21 documented as of this encounter
--- OUTSIDE RECORDS SUMMARY | 2024-06-25 14:00 | XMS_ITS | Encounter Summary ---
Author Organization [facility] Address [address] [place] [address] Phone Care Team Providers Care Car Shagger Name Role Phone Pal Russell MD Primary Care Provider [phone] Encounter Details Date Type Department Care Team (Late st Contact Info) Description 11/28/2018 Telephone [facility] Orthopaedic Surgery [address] [place] [address] Beny Membreno MD [address] [place] [address] Social History Tobacco Use Types Packs/Day Years Used Date Smoking Tobacco: Never Smokeless Tobacco: Never Alcohol Use Standard Drinks/Week Comments Yes 0 (1 standard drink = 0.6 oz pur e alcohol) Sex and Gender Information Value Date Recorded Sex Assigned at Not on file 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 * Telephone Encounter - Beny Sinclair MD - 11/29/2018 7:24 PM CDT Referral to [facility] Radiology for C5/6 central epidural steroid injection under fluoroscopy and update us to report progress 2 weeks after receiving this. * Telephone Encounter - Leidy Perry MA - 11/28/2018 4:18 PM CDT Notes recorded by Beny Sinclair MD on 11/25/2018 at 7:18 PM CDT MRI cervical spine shows similar findings as previous CT scan: arthritic changes and disc bulging between C5 and C6 levels narrowing space where nerves exit the spine, worse on the left compared to right. Please update symptoms currently and confirm y/n if patient has had epidural injection since visit with me in August. No injections since seeing you in August. Please advise * Telephone Encounter - Claus Mathis - 11/28/2018 3:[address] Membreno's MRI result with pt. Pt states that his symptoms have gotten worse since MRI. Current pain level is an 8. Pt states that has not had a cervical INJ. Pt is at [phone]. documented in this encounter Plan of Treatment Scheduled Procedures Name Priority Associated Diagnoses Date/Ti ny COLONOSCOPY Colon cancer screening COLONOSCOPY Colon cancer screening documented as of this encounter Visit Diagnoses Not on filedocumented in this encounter Care Teams Car Shagger Relationship Specialty Start Date End Date Pal Russell MD PCP - General 06/08/17 09/04/21 documented as of this encounter
--- OUTSIDE RECORDS SUMMARY | 2024-06-25 14:01 | XMS_ITS | Encounter Summary ---
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 LAINT OPERATOR documented in this encounter Plan of Treatment Scheduled Procedures Name Priority Associated Diagnoses Date/Ti me COLONOSCOPY Colon cancer screening COLONOSCOPY Colon cancer screening documented as of this encounter Visit Diagnoses Not on filedocumented in this encounter Care Teams Jinrikisha Driver Relationship Specialty Start Date End Date Pal Russell MD PCP - General 06/08/17 09/04/21 documented as of this encounter
--- OUTSIDE RECORDS SUMMARY | 2024-06-25 14:01 | XMS_ITS | Encounter Summary ---
Author Organization [facility] Address [address] [place] [address] Phone Care Team Providers Care Proof Load Mechanic Name Role Phone Pal Russell MD Primary Care Provider [phone] Reason for Visit * Reason Onset Date Comments Review Medications 08/18/2018 Encounter Details Date Type Department Care Team (Late st Contact Info) Description 08/18/2018 Telephone [facility] [address] [place] [address] Pal Russell MD [address] [address] Review Medications Social History Tobacco Use Types Packs/Day Years Used Date Smoking Tobacco: Never Sex and Gender Information Value Date Recorded Sex Assigned at Not on file 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 OR MICROSOFT CONSULTANT * Telephone Encounter - Kelin Collier NP - 08/19/2018 8:59 AM CST I sent a referral for ortho spine via [facility] direct OR MICROSOFT CONSULTANT * Telephone Encounter - Flavia Amin MA - 08/18/2018 4:10 PM CST Patient received muscle relaxer for neck from HOSIERY MATER Kelin, but not working at all getting worse. Patient said HOSIERY MATER was supposed to call another doctor regarding neck injection and haven't heard back. Please Call OR MICROSOFT CONSULTANT documented in this encounter Plan of Treatment Scheduled Procedures Name Priority Associated Diagnoses Date/Ti me COLONOSCOPY Colon cancer screening COLONOSCOPY Colon cancer screening documented as of this encounter Visit Diagnoses Not on filedocumented in this encounter Care Teams Proof Load Mechanic Relationship Specialty Start Date End Date Pal Russell MD PCP - General 06/08/17 09/04/21 documented as of this encounter
--- OUTSIDE RECORDS SUMMARY | 2024-06-25 14:01 | XMS_ITS | Encounter Summary ---
Author Organization [facility] Address [address] [place] [address] Phone Care Team Providers Care Premix Concrete Batcher Name Role Phone Pal Russell MD Primary Care Provider [phone] Reason for Visit * Reason Comments Pain * Consultation (Routine) - Closed Specialty Diagnoses / Procedures Referred By Contact Referred To Contact Physical Medicine and Rehabilitation Diagnoses Pain, neck Pal Russell MD Phone: tel: fax: [facility] (All Locations) Referral ID Status Reason Start Date Expiration Date V isits Requested Visits Authorized Closed Specialty Services Required 07/28/2018 07/27/2019 12 12 Encounter Details Date Type Department Care Team (Late st Contact Info) Description 08/30/2018 10:00 AM CDT Office Visit [facility] Orthopaedic Surgery [address] [facility] [address] [place] [address] Beny Watson MD [address] [place] [address] Cervical radicular pain (Primary Dx); Pain, neck; Osteoarthritis of spine with radiculopathy, cervical region Social History Tobacco Use Types Packs/Day Years Used Date Smoking Tobacco: Never Smokeless Tobacco: Never Alcohol Use Standard Drinks/Week Comments Yes 0 (1 standard drink = 0.6 oz pur e alcohol) Sex and Gender Information Value Date Recorded Sex Assigned at Not on file 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 The given the severity and nature of his symptoms, he inquiresabout pursuing an epidural steroid injection which I think is reasonable. I recommend: ?? 1. Referral to [facility] for C5/6 central epidural steroid injection under fluoroscopy and update us to report progress 2 weeks after receiving this. He is strongly interested in getting injection done since possible. 2. Discussed physical therapy which he may consider if pain is reduced. documented in this encounter Progress Notes * Beny Sinclair MD - 08/30/2018 10:00 AM CDT NEW PATIENT VISIT CHIEF COMPLAINT: Chief Complaint Patient presents with ??? Neck - Pain HISTORY OF PRESENT ILLNESS: Sean Ritter is a 57 y.o. male who presents to the office today for evaluation of neck pain and headaches. He reports onset 4 months ago, worse over the last 2 weeks. He does not identify a particular event or trauma to taz onset. Pain is variable in nature from sharp to aching and moderate to severe intensity. Symptoms are continuous to some extent, wakes him up and is aggravated with turninghis head. Sleeping affords him relative relief. He experiences periscapular pain but does not sound like upper extremity symptoms. He has not experienced weakness or numbness in the upper extremities. The symptoms seem to be worse PAST MEDICAL HISTORY: He has a past medical history of Arthritis, Gout, Headache, and Old myocardial infarction. PAST SURGICAL HISTORY: He has a past surgical history that includes pr appendectomy and Back surgery. INITIAL REVIEW OF MEDICATIONS: He has a current medication list which includes the following prescription(s): amlodipine (NORVASC), amoxicillin-clavulanate (AUGMENTIN), celecoxib (CELEBREX), cyclobenzaprine (FLEXERIL), lisinopril (PRINIVIL,ZESTRIL), melatonin-lemon balm leaf extr, and pravastatin (PRAVACHOL). DRUG ALLERGIES: He has No Known Allergies. SOCIAL HISTORY: He reports that he has never smoked. He has never used smokeless tobacco. He reports that he drinksalcohol. He reports that he does not use drugs. FAMILY HISTORY: He family history includes Arthritis in his father and mother; Heart attack in his brother; Heart disease in his brother and mother; Hypertension in his mother. REVIEW OF SYSTEMS: Please see patient questionnaire, documented and reviewed 08/30/2018 PHYSICAL EXAM: On examination today, the patient is awake, alert, and appropriate, in no apparent distress. Breathing is regular and non-labored, hearing is intact to spoken words. On the right than left. Upper extremities are without swelling or edema, and visualized skin is intact. Active shoulder ranges of motion are unrestricted. There are no sensory or motor deficits affecting the upper extremities. Carty's is negative. Reflexes are 1+ brachioradialis and patellar tendon. No clonus with ankle jerk. He transfers [id number] without difficulty in gait is normal. Cervical range of motion provokes pain with flexion and extension. Supine neural tension testing on the right with radial bias is associated with increased left-sided cervical and periscapular pain. REVIEW OF X-RAYS/STUDIES: Cervical spine x-rays and CT examination of the cervical spine completed recently are reviewed withhim in the room today: There are degenerative changes, particularly at C5/6 with left greater than right foraminal stenosis. 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 TREATMENT PLAN: We discussed things in detail today. The given the severity and nature of his symptoms, he inquiresabout pursuing an epidural steroid injection which I think is reasonable. I recommend: 1. Referral to [facility] for C5/6 central epidural steroid injection under fluoroscopy and update us to report progress 2 weeks after receiving this. He is strongly interested in getting injection done since possible. 2. Discussed physical therapy which he may consider if pain is reduced. The rational for all recommendations, as well as relative risks, are discussed with the patient in detail. The patient expresses understanding, comfort and agreement with the plan, all questions are answered. Orders Placed This Encounter Procedures ??? IR Epidural Injection Cervical W Guidance This note was dictated using BackType software. This note was not read in detail; therefore, variances and inaccuracies may occur. Beny Sinclair MD Vaccinator Physical Medicine and Rehabilitation [facility] documented in this encounter Plan of Treatment Scheduled Procedures Name Priority Associated Diagnoses Date/Ti me COLONOSCOPY Colon cancer screening COLONOSCOPY Colon cancer screening documented as of this encounter Visit Diagnoses Diagnosis Cervical radicular pain- Primary Pain, neck Osteoarthritis of spine with radiculopathy, cervical region documented in this encounter Orders Outpatient Referral Count Last Ordered Date Fir st Ordered Date AMB REFERRAL TO [facility] 1 0 08/30/2018 documented in this encounter Care Teams Premix Concrete Batcher Relationship Specialty Start Date End Date Pal Russell MD PCP - General 06/08/17 09/04/21 documented as of this encounter
--- OUTSIDE RECORDS SUMMARY | 2024-06-25 14:01 | XMS_ITS | Encounter Summary ---
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 ILATING EQUIPMENT INSTALLER * Telephone Encounter - Pal Russell MD - 08/11/2018 12:24 PM CST Send a Medrol dose pack and have him in to see Marce or asaf. ILATING EQUIPMENT INSTALLER * Telephone Encounter - Jones Watson - 08/11/2018 10:00 AM CST The Celebrex is not working what do you recommend? ILATING EQUIPMENT INSTALLER * Telephone Encounter - Concha Jha - 08/11/2018 9:55 AM CST He keeps calling here & called Jones Wednesday & nobody is returning his call. He needs somebody to please get back to him. His neck is naresh bad right now it's hard to move. He's on Celebrex & it's not helping. Please give him a call. ILATING EQUIPMENT INSTALLER documented in this encounter Plan of Treatment Scheduled Procedures Name Priority Associated Diagnoses Date/Ti me COLONOSCOPY Colon cancer screening COLONOSCOPY Colon cancer screening documented as of this encounter Visit Diagnoses Not on filedocumented in this encounter Care Teams Customer Support Agent Relationship Specialty Start Date End Date Pal Russell MD PCP - General 06/08/17 09/04/21 documented as of this encounter
--- OUTSIDE RECORDS SUMMARY | 2024-06-25 14:01 | XMS_ITS | Encounter Summary ---
Author Organization [facility] Address [address] [place] [address] Phone Care Team Providers Care Ply Bander Name Role Phone Pal Russell MD Primary Care Provider [phone] Encounter Details Date Type Department Care Team (Late st Contact Info) Description 08/02/[address] 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 Please give him a call. N DESIGNER documented in this encounter Plan of Treatment Scheduled Procedures Name Priority Associated Diagnoses Date/Ti me COLONOSCOPY Colon cancer screening COLONOSCOPY Colon cancer screening documented as of this encounter Visit Diagnoses Not on filedocumented in this encounter Care Teams Ply Bander Relationship Specialty Start Date End Date Pal Russell MD PCP - General 06/08/17 09/04/21 documented as of this encounter
--- OUTSIDE RECORDS SUMMARY | 2024-06-25 14:01 | XMS_ITS | Encounter Summary ---
Author Organization [facility] Address [address] [place] [id number] Phone Care Team Providers Care Secondary School Teacher Librarian Name Role Phone Pal Russell MD Primary Care Provider [phone] Reason for Referral * Diagnostic Imaging (Routine) - Closed Specialty Diagnoses / Procedures Referred By Massimo steven Referred To Contact Diagnoses Cervical radiculopathy Facial pain Procedures XR Skull 4 or More Views Pal Russell MD Phone: tel: fax: [facility] Referral ID Status Reason Start Date Expiration Date Visits Re quested Visits Authorized [id number] Closed 07/27/2018 02/05/2020 1 1 MACIST AIDE * Diagnostic Imaging (Routine) - Closed Specialty Diagnoses / Procedures Referred By Massimo steven Referred To Contact Diagnoses Cervical radiculopathy Facial pain Procedures XR Spine Cervical Flexion and Extension 2 or 3 Views Pal Russell MD Phone: tel: fax: Referral ID Status Reason Start Date Expiration Date Visits Re quested Visits Authorized [id number] Closed 07/27/2018 02/05/2020 1 1 MACIST AIDE Reason for Visit * Reason Comments Follow-up Encounter Details Date Type Department Care Team (Late st Contact Info) Description 07/27/2018 2:00 PM PHARMACIST AIDE Office Visit [address] [phone] Pal Russell MD [address] [address] Cervical radiculopathy (Primary Dx); Facial pain Social History Tobacco Use Types Packs/Day Years Used Date Smoking Tobacco: Never Sex and Gender Information Value Date Recorded Sex Assigned at Not on file Legal Sex Male 2:28 AM PHARMACIST AIDE Gender Identity Not on file Sexual Orientation Not on file documented as of this encounter Last Filed Vital Signs Vital Sign Reading Time Taken Comments Blood Pressure 112/70 07/27/2018 2:08 PM PHARMACIST AIDE Pulse - - Temperature - - Respiratory Rate - - Oxygen Saturation - - Inhaled Oxygen Concentration - - Weight 94.8 kg (209 lb) 07/27/2018 2:08 PM PHARMACIST AIDE Height 170.2 cm (5' 7 ) 07/27/2018 2:08 PM PHARMACIST AIDE Body Mass Index 32.73 07/27/2018 2:08 PM PHARMACIST AIDE documented in this encounter Ordered Prescriptions Prescription Sig Dispense Quantity Refills Last Filled Start Date End Date celecoxib (CeleBREX) 200 mg capsule Take 1 capsule (200 mg total) by mouth 2 (two) times a day. 60 capsule 5 07/27/2018 9 amoxicillin-clavul anate (AUGMENTIN) 875-125 mg per tablet Take 1 tablet by mouth 2 (two) times a day for 10 days. 14 tablet 07/27/2018 9 documented in this encounter Progress Notes * Ruben Mehta MD - 07/27/2018 2:00 PM CST Patient Name: Sean Ritter : 1960 Today's Date: 07/27/2018 PCP: Pollo Russell MD Chief Complaint Chief Complaint Patient presents with ??? Follow-up HPI Sean Ritter is a 57 y.o. male #Neck & face pain & jaw pain For 3-4 months (before thanksgi), has had pain in the neck at rest and with motion, lateral sides of face; Jaw pain b/l even at rest. Neck and jaw have cracked more easily. Also complains of pains on the lateral sides of the face, with weird sensation to touch. Onset was acute (not gradually worse). R side worse than left. Tried new pillow, ice, heat, icy hot -> no improvement. Tylenol -> no help Has had a steroid taper from last visit -> only little help ROS: Vision poor at baseline (no vision from R, left is poor), but no vision changes except from +short (20s) episodes of blurry vision that resolve on its own Photophobia at baseline, but not worse No changes in hearing + Voice is more raspy since , but not hoarse +Possibly for the past few months a few times had a chocking sensation Has lightheadedness at baseline Has numbness & tingling of arms at baseline but not worse +Feels like has decrease in passive range of motion R>L No vomiting, no nausea No weight loss (gained weight; feels hungry all the time) Feels congestion in the nose and chest since about [place] + cough. No recent chills. He felt warm at times Has headaches at baseline #Sinus symptoms For a few months feels congested. Apparently had a prescription for a course of augmentin but he did not get it. I have reviewed: allergies, past family history, past social history and past surgical history Review of Systems Review of systems per HPI and otherwise all other systems are negative Vitals Vitals: 07/27/18 1408 BP: 112/70 Weight: 94.8 kg (209 lb) Height: 170.2 cm (5' 7 ) Body mass index is 32.73 kg/m??. Physical Exam A&Ox4, appears uncomfortable RRR normal s1s2 CTAB Abdo soft NDNT 2 inches diameter slightly left to the cervical spine: lipoma like mass that was not there before as per patient. TMJ and postero-inferior aspect of the jaw tender to palpation bilaterally. Several spots on his face including temples, lateral face tender to palpation Tapping the V1-3 distribution does not trigger tingling Assessment / Plan #Neck & face pain & jaw pain Unclear etiology. The CT thoracic & lumbar spine does show degenerative changes (mod in cerv, mild in thoracic), which could explain some of the symptoms. Odd though that the onset was acute, andmay not explain the face pain. Trigeminal neuralgia, temporal arteritis less likely The symptoms are bilateral (face & neck), R>L so more likely a central process (spine). -Could consider a spine & brain MRI. -Symptomatic management w/ tylenol, gabapentin, and cyclobenzaprine. #Mass on the back DDx: Lipoma, leak from spine?? U/s vs MRI No Follow-up on file. Ruben Mehta MD Cosigned by Pal Russell MD at 07/27/2018 3:01 PM PHARMACIST AIDE MACIST AIDE MACIST AIDE MACIST AIDE * Pal Russell MD - 07/27/2018 2:00 PM CST SUBJECTIVE: Sean Ritter is a 57 y.o. member presenting for routine planned follow up for a stiff neck x 3mo Today we focussed on the following concerns: 1. Jaw head all cracking and hurting 2. Constant upper neck craking noises even w/ slight motion. Very much worse hs 3. Jaws and temples tender too 4. 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 No better w/ steroid Rx per PRE PRESS MANAGER We reviewed medication compliance as well as self monitoring and goals were set out and reviewed again. We covered diet and exercise as well as getting sufficient rest. I also touched on the notion that while we will make effort to treat and control these conditions, it is critical what is done in terms of proper nutrition and exercise in between visits that often determine the ultimate outcome. Current Outpatient Prescriptions Medication Sig Dispense Refill ??? amLODIPine (NORVASC) 5 mg tablet daily. ??? amoxicillin-clavulanate (AUGMENTIN) 875-125 mg per tablet Take 1 tablet by mouth 2 (two) times a day for 10 days. 14 tablet 0 ??? benzonatate (TESSALON) 100 mg capsule Take 1 capsule (100 mg total) by mouth 3 (three) times a day as needed for cough. 15 capsule 1 ??? lisinopril (PRINIVIL,ZESTRIL) 10 mg tablet TAKE ONE TABLET BY MOUTH ONCE DAILY DIRECTED 30 tablet 3 ??? melatonin-lemon balm leaf extr 10-1 mg tablet 2 tab daily ??? pravastatin (PRAVACHOL) 10 mg tablet Take by mouth. ??? celecoxib (CeleBREX) 200 mg capsule Take 1 capsule (200 mg total) by mouth 2 (two) times a day.60 capsule 5 No current facility-administered medications for this visit. Allergies: Patient has no known allergies. Current Outpatient Prescriptions: ??? amLODIPine (NORVASC) 5 mg tablet, daily., Disp: , Rfl: ??? amoxicillin-clavulanate (AUGMENTIN) 875-125 mg per tablet, Take 1 tablet by mouth 2 (two) timesa day for 10 days., Disp: 14 tablet, Rfl: 0 ??? benzonatate (TESSALON) 100 mg capsule, Take 1 capsule (100 mg total) by mouth 3 (three) times aday as needed for cough., Disp: 15 capsule, Rfl: 1 ??? lisinopril (PRINIVIL,ZESTRIL) 10 mg tablet, TAKE ONE TABLET BY MOUTH ONCE DAILY DIRECTED, Disp: 30 tablet, Rfl: 3 ??? melatonin-lemon balm leaf extr 10-1 mg tablet, 2 tab daily, Disp: , Rfl: ??? pravastatin (PRAVACHOL) 10 mg tablet, Take by mouth., Disp: , Rfl: ??? celecoxib (CeleBREX) 200 mg capsule, Take 1 capsule (200 mg total) by mouth 2 (two) times a day., Disp: 60 capsule, Rfl: 5 Patient Active Problem List Diagnosis ??? Transient [...] Left ventricular diastolic dysfunction family history includes Heart attack in his brother. reports that he has never smoked. He does not have any smokeless tobacco history on file. ROS: Feeling well. No dyspnea or chest pain on exertion. No abdominal pain, change in bowel habits,black or bloody stools. No urinary tract symptoms. No neurological complaints. Joint aches and pains are stable. OBJECTIVE: The patient appears well, alert, oriented x 3, in no distress. BP 112/70 Ht 170.2 cm (5' 7 ) Wt 94.8 kg (209 lb) BMI 32.73 kg/m?? ENT normal. Neck supple. No adenopathy or thyromegaly. AYLIN. Lungs are clear, no wheezes, rhonchi or rales. CV exam: S1 and S2 normal, no murmurs, regular rate and rhythm. Abdomen is soft without tenderness, guarding, mass or organomegaly. The skin lymphatic and reflex testing is normal RECENT RESULTS: No results found for this or any previous visit (from the past 1008 hour(s)). Assessment/Plan Problem List Nervous Facial pain (Chronic) Relevant Orders CBC with auto differential Erythrocyte sedimentation rate XR Spine Cervical Flexion and Extension 2 or 3 Views XR Skull 4 or More Views Cervical radiculopathy - Primary (Chronic) Overview Impression: will check the films Current Assessment & Plan We will back up here and send for plain XR and refer to PMR The jaw may be TMJ check skull series Relevant Orders CBC with auto differential Erythrocyte sedimentation rate XR Spine Cervical Flexion and Extension 2 or 3 Views XR Skull 4 or More Views Orders Placed This Encounter ??? XR Spine Cervical Flexion and Extension 2 or 3 Views ??? XR Skull 4 or More Views ??? CBC with auto differential ??? Erythrocyte sedimentation rate ??? amoxicillin-clavulanate (AUGMENTIN) 875-125 mg per tablet ??? celecoxib (CeleBREX) 200 mg capsule Pollo Russell MD MACIST AIDE documented in this encounter Miscellaneous Notes * Assessment & Plan Note - Pal Russell MD - 07/27/2018 3:10 PM PHARMACIST AIDE Associated Problem(s): Cervical radiculopathy We will back up here and send for plain XR and refer to PMR The jaw may be TMJ check skull series MACIST AIDE documented in this encounter Plan of Treatment Scheduled Procedures Name Priority Associated Diagnoses Date/Ti me COLONOSCOPY Colon cancer screening COLONOSCOPY Colon cancer screening documented as of this encounter Procedures Procedure Name Priority Date/Time Associated Diagnosis Comments XR SPINE CERVICAL FLEXION AND EXTENSION 2 VIEWS Schedule Routine, Read Routine (OP Routine) 07/27/2018 4:28 PM PHARMACIST AIDE Cervical radiculopathy Facial pain CBC WITH AUTO DIFFERENTIAL Routine 07/27/2018 3:09 PM PHARMACIST AIDE Cervical radiculopathy Facial pain ERYTHROCYTE SEDIMENTATION RATE Routine 07/27/2018 3:09 PM PHARMACIST AIDE Cervical radiculopathy Facial pain documented in this encounter Results * XR Skull 4 or More Views (07/27/2018 4:28 PM PHARMACIST AIDE) Anatomical Region Laterality Modality Head and Neck N/A Computed Radiogr aphy 07/27/2018 4:34 PM PHARMACIST AIDE Impressions 07/27/2018 4:34 PM PHARMACIST AIDE 1. ??Mild-moderate cervical spine degenerative disc disease at C5-C6. 2. ??No radiographic skull abnormality. Electronically signed by: Carlos Fallon M.D. Narrative 07/27/2018 4:34 PM PHARMACIST AIDE EXAMINATION: 1. ??Skull 4 or more views 2. ??Cervical spine 2 or 3 views with flexion and extension. HISTORY: Cervical spondylosis FINDINGS: 4 view examination of the skull and 3 view examination of the cervical spine are submitted without comparison. Skull: There is no evidence of a skull fracture. ??The paranasal sinuses and mastoid air cells appear well aerated. Cervical spine: Cervical vertebral body heights and alignment are normal. ??There is mild-moderate degenerative disc disease at C5-C6, with mild degenerative disc disease elsewhere in the cervical spine. There is no osseous central canal stenosis. ??Prevertebral soft tissues are not thickened. ??Motion is normal. Procedure Note Carlos Fallon MD - 07/27/2018 EXAMINATION: 1. Skull 4 or more views 2. Cervical spine 2 or 3 views with flexion and extension. HISTORY: Cervical spondylosis FINDINGS: 4 view examination of the skull and 3 view examination of the cervical spine are submitted without comparison. Skull: There is no evidence of a skull fracture. The paranasal sinuses and mastoid air cells appear well aerated. Cervical spine: Cervical vertebral body heights and alignment are normal. There is mild-moderate degenerative disc disease at C5-C6, with mild degenerative disc disease elsewhere in the cervical spine. There is no osseous central canal stenosis. Prevertebral soft tissues are not thickened. Motion is normal. IMPRESSION: 1. Mild-moderate cervical spine degenerative disc disease at C5-C6. 2. No radiographic skull abnormality. Electronically signed by: Carlos Fallon M.D. Pal Russell MD IMG XR PROCEDURES Final Result * XR Spine Cervical Flexion and Extension 2 or 3 Views (07/27/2018 4:28 PM PHARMACIST AIDE) Anatomical Region Laterality Modality Spine N/A Computed Radiogr aphy 07/27/2018 4:34 PM PHARMACIST AIDE Impressions 07/27/2018 4:34 PM PHARMACIST AIDE 1. ??Mild-moderate cervical spine degenerative disc disease at C5-C6. 2. ??No radiographic skull abnormality. Electronically signed by: Carlos Fallon M.D. Narrative 07/27/2018 4:34 PM PHARMACIST AIDE EXAMINATION: 1. ??Skull 4 or more views 2. ??Cervical spine 2 or 3 views with flexion and extension. HISTORY: Cervical spondylosis FINDINGS: 4 view examination of the skull and 3 view examination of the cervical spine are submitted without comparison. Skull: There is no evidence of a skull fracture. ??The paranasal sinuses and mastoid air cells appear well aerated. Cervical spine: Cervical vertebral body heights and alignment are normal. ??There is mild-moderate degenerative disc disease at C5-C6, with mild degenerative disc disease elsewhere in the cervical spine. There is no osseous central canal stenosis. ??Prevertebral soft tissues are not thickened. ??Motion is normal. Procedure Note Carlos Fallon MD - 07/27/2018 EXAMINATION: 1. Skull 4 or more views 2. Cervical spine 2 or 3 views with flexion and extension. HISTORY: Cervical spondylosis FINDINGS: 4 view examination of the skull and 3 view examination of the cervical spine are submitted without comparison. Skull: There is no evidence of a skull fracture. The paranasal sinuses and mastoid air cells appear well aerated. Cervical spine: Cervical vertebral body heights and alignment are normal. There is mild-moderate degenerative disc disease at C5-C6, with mild degenerative disc disease elsewhere in the cervical spine. There is no osseous central canal stenosis. Prevertebral soft tissues are not thickened. Motion is normal. IMPRESSION: 1. Mild-moderate cervical spine degenerative disc disease at C5-C6. 2. No radiographic skull abnormality. Electronically signed by: Carlos Fallon M.D. Pal Russell MD IMG XR PROCEDURES Final Result * Erythrocyte sedimentation rate (07/27/2018 3:09 PM PHARMACIST AIDE) ESR 10.00 0.00 - 15.00 [facility] Blood specimen (specimen) 07/27/2018 3:09 PM PHARMACIST AIDE 07/27/2018 3:18 PM PHARMACIST AIDE Pal Russell MD LAB BLOOD ORDERABLES Final Res ult Performing Organization Address City/State/[facility] Co de Phone Number [facility] [address] [place] [address] * (ABNORMAL) CBC with auto differential (07/27/2018 3:09 PM PHARMACIST AIDE) WBC 14.7(H) 3.5 - 10.0 K/uL [facility] RBC 4.85 3.50 - 5.50 M/uL [facility] Hemoglobin 14.5 11.5 - 16.5 g/dL [facility] Hematocrit 43.3 35.0 - 55.0 % [facility] MCV 89.3 75.0 - 100.0 fL [facility] MCH 29.90 25.00 - 35.00 pg [facility] MCHC 33.40 31.00 - 38.00 g/dL [facility] RDW 11.6 11.0 - 16.0 % [facility] Platelets 320 140 - 400 K/uL [facility] MPV 7.5(L) 8.0 - 11.0 fL [facility] Granulocyte, Absolute 11.0(H) 1.2 - 8.0 K/uL [facility] Lymphocyte, Absolute 2.9 0.5 - 5.0 K/uL [facility] Monocyte, Absolute 0.8 0.1 - 1.5 K/uL [facility] Granulocyte, Percentage 74.8 35.0 - 80.0 % [facility] Lymphocyte, Percentage 19.9 15.0 - 50.0 % [facility] Monocyte, Percentage 5.3 2.0 - 15.0 % [facility] Blood specimen (specimen) 07/27/2018 3:09 PM PHARMACIST AIDE 07/27/2018 3:18 PM PHARMACIST AIDE us Pal Russell MD LAB BLOOD ORDERABLES Final Res ult Performing Organization Address City/State/[facility] Co de Phone Number [facility] [address] [place] [address] documented in this encounter Visit Diagnoses Diagnosis Cervical radiculopathy- Primary Brachial neuritis or radiculitis nos Facial pain Headache Cervical radiculopathy Brachial neuritis or radiculitis nos Facial pain Headache documented in this encounter Discontinued Medications Medication Sig Discontinue Reason Start Date End Da te amoxicillin-clavulanate (AUGMENTIN) 875-125 mg per tablet Take 1 tablet by mouth 2 (two) times a day for 10 days. Reorder 07/18/2018 07/27/2018 aspirin 325 mg tablet Take 325 mg by mouth. 07/27/2018 documented as of this encounter Care Teams Secondary School Teacher Librarian Relationship Specialty Start Date End Date Pal Russell MD PCP - General 06/08/17 09/04/21 documented as of this encounter
--- OUTSIDE RECORDS SUMMARY | 2024-06-25 14:01 | XMS_ITS | Encounter Summary ---
Author Organization [facility] Healthcare Address [address] [place] [address] Care Team Providers Care Satellite Dish Technician Name Role Phone Pal Russell MD Primary Care Provider [phone] Reason for Referral * Diagnostic Imaging (Routine) - Closed Specialty Diagnoses / Procedures Referred By Contac t Referred To Contact Diagnoses Cervical radiculopathy Facial pain Procedures XR Skull 4 or More Views Pal Russell MD Phone: tel: fax: [facility] Referral ID Status Reason Start Date Expiration Date Visits Re quested Visits Authorized [id number] Closed 07/27/2018 02/05/2020 1 1 OSOFT ARCHITECT Reason for Visit * Diagnostic Imaging (Routine) - Closed Specialty Diagnoses / Procedures Referred By Contac t Referred To Contact Diagnoses Cervical radiculopathy Facial pain Procedures XR Spine Cervical Flexion and Extension 2 or 3 Views Pal Russell MD Phone: tel: fax: Referral ID Status Reason Start Date Expiration Date Visits Re quested Visits Authorized [id number] Closed 07/27/2018 02/05/2020 1 1 Encounter Details Date Type Department Care Team (Latest Contact Info) Description 07/27/2018 4:03 PM MICROSOFT ARCHITECT - 07/27/2018 11:59 PM MICROSOFT ARCHITECT Hospital Encounter [facility] [address] [place] [address] Pal Russell MD [address] [place] [address] Cervical radiculopathy; Facial pain Discharge Disposition: Discharge to home or self care Social History Tobacco Use Types Packs/Day Years Used Date Smoking Tobacco: Never Sex and Gender Information Value Date Recorded Sex Assigned at Not on file Legal Sex Male 2:28 AM MICROSOFT ARCHITECT Gender Identity Not on file Sexual Orientation Not on file documented as of this encounter Medications at Time of Discharge amLODIPine (NORVASC) 5 mg tablet daily. 08/12/2016 08/15/2018 amoxicillin-clav ulanate (AUGMENTIN) 875-125 mg per tablet Take 1 tablet by mouth 2 (two) times a day for 10 days. 14 tablet 07/27/2018 07/28/2018 benzonatate (TESSALON) 100 mg capsuleIndicatio ns:Cough Take 1 capsule (100 mg total) by mouth 3 (three) times a day as needed for cough. 15 capsule 1 07/18/2018 08/15/2018 celecoxib (CeleBREX) 200 mg capsule Take 1 capsule (200 mg total) by mouth 2 (two) times a day. 60 capsule 5 07/27/2018 03/28/2019 lisinopril (PRINIVIL,ZESTRI L) 10 mg tablet TAKE ONE TABLET BY MOUTH ONCE DAILY DIRECTED 30 tablet 3 07/07/2018 08/15/2018 melatonin-lemon balm leaf extr 10-1 mg tablet 2 tab daily 01/30/2016 0 pravastatin (PRAVACHOL) 10 mg tablet Take by mouth. 08/15/2018 documented as of this encounter Discharge Disposition [...] Read Routine (OP Routine) 07/27/2018 4:28 PM MICROSOFT ARCHITECT Cervical radiculopathy Facial pain XR SKULL 4 OR MORE VIEWS Schedule Routine, Read Routine (OP Routine) 07/27/2018 4:28 PM MICROSOFT ARCHITECT Cervical radiculopathy Facial pain documented in this encounter Results * XR Skull 4 or More Views (07/27/2018 4:28 PM MICROSOFT ARCHITECT) Anatomical Region Laterality Modality Head and Neck N/A Computed Radiogr aphy 07/27/2018 4:34 PM MICROSOFT ARCHITECT Impressions 07/27/2018 4:34 PM MICROSOFT ARCHITECT 1. ??Mild-moderate cervical spine degenerative disc disease at C5-C6. 2. ??No radiographic skull abnormality. Electronically signed by: Carlos Fallon M.D. Narrative 07/27/2018 4:34 PM MICROSOFT ARCHITECT EXAMINATION: 1. ??Skull 4 or more views [...] Russell MD IMG XR PROCEDURES Final Result documented in this encounter Visit Diagnoses Diagnosis Cervical radiculopathy Brachial neuritis or radiculitis nos Facial pain Headache documented in this encounter Care Teams Satellite Dish Technician Relationship Specialty Start Date End Date Pal Russell MD PCP - General 06/08/17 09/04/21 documented as of this encounter
--- OUTSIDE RECORDS SUMMARY | 2024-06-25 14:01 | XMS_ITS | Encounter Summary ---
Author Organization [facility] Address [address] [place] [address] Phone Care Team Providers Care Head Loader Name Role Phone Pal Russell MD Primary Care Provider [phone] Reason for Visit * Reason Comments Neck Pain sxs since mar Encounter Details Date Type Department Care Team (Late st Contact Info) Description 08/15/2018 10:30 AM LUMBER ESTIMATOR Office Visit [facility] [address] [place] [address] Kelin Collier, BLANCA [address] [place] [address] Neck pain (Primary Dx) Social History Tobacco Use Types Packs/Day Years Used Date Smoking Tobacco: Never Sex and Gender Information Value Date Recorded Sex Assigned at Not on file Legal Sex Male 2:28 AM LUMBER ESTIMATOR Gender Identity Not on file Sexual Orientation Not on file documented as of this encounter Last Filed Vital Signs Vital Sign Reading Time Taken Comments Blood Pressure 132/100 08/15/2018 10:47 AM LUMBER ESTIMATOR Pulse 105 08/15/2018 10:47 AM LUMBER ESTIMATOR Temperature 37.1 ??C (98.8 ??F) 08/15/2018 10:[address] Respiratory Rate - - Oxygen Saturation - - Inhaled Oxygen Concentration - - Weight 97.1 kg (214 lb) 08/15/2018 10:47 AM LUMBER ESTIMATOR Height - - Body Mass Index 33.52 07/27/2018 2:08 PM LUMBER ESTIMATOR documented in this encounter Ordered Prescriptions Prescription Sig Dispense Quantity Refills Last Filled Start Date End Date pravastatin (PRAVACHOL) 10 mg tablet Take 1 tablet (10 mg total) by mouth daily. 90 tablet 3 08/15/2018 01/03/2020 amLODIPine (NORVASC) 5 mg tablet Take 1 tablet (5 mg total) by mouth daily. 90 tablet 3 08/15/2018 01/30/2020 lisinopril (PRINIVIL,ZESTRIL) 10 mg tablet Take 1 tablet (10 mg total) by mouth daily. 90 tablet 3 08/15/2018 01/03/2020 cyclobenzaprine (FLEXERIL) 10 mg tablet Take 1 tablet (10 mg total) by mouth 3 (three) times a day as needed for muscle spasms. 30 tablet 08/15/2018 12/16/2018 documented in this encounter Progress Notes * Kelin Collier, ANIME ARTIST - 08/15/2018 10:30 AM CST Subjective/Objective Patient ID: Sean Ritter is a 57 y.o. male. Chief Complaint Neck Pain (sxs since mar) HPI Continuing to have neck pain. He had imaging done that showed degenerative disc disease. He has been taking celebrex without good relief. He tried a medrol dose pack per Dr. Russell with no relief. He is not sleeping well as he is not comfortable. He did not do PT as scheduling is about a month out. The pain is starting to wear on him. Review of Systems Musculoskeletal: Positive for neck pain. All other systems reviewed and are negative. Physical Exam Constitutional: He is oriented to person, place, and time. He appears well- developed and well-nourished. HENT: Head: Normocephalic and atraumatic. Right Ear: External ear normal. Left Ear: External ear normal. Eyes: Pupils are equal, round, and reactive to light. Conjunctivae and EOM are normal. Neck: Normal range of motion. Neck supple. Cardiovascular: Normal rate, regular rhythm and normal heart sounds. Pulmonary/Chest: Effort normal and breath sounds normal. Abdominal: Soft. Bowel sounds are normal. Musculoskeletal: Normal range of motion. Neurological: He is alert and oriented to person, place, and time. Skin: Skin is warm and dry. Capillary refill takes less than 2 seconds. Psychiatric: He has a normal mood and affect. His behavior is normal. Vitals reviewed. Vitals BP 132/100 Pulse 105 Temp 37.1 ??C (98.8 ??F) Wt 97.1 kg (214 lb) BMI 33.52 kg/m?? Current Outpatient Prescriptions Medication Sig Dispense Refill ??? amLODIPine (NORVASC) 5 mg tablet daily. ??? amoxicillin-clavulanate (AUGMENTIN) 875-125 mg per tablet TAKE 1 TABLET BY MOUTH TWICE DAILY FOR 10 DAYS 20 tablet 0 ??? celecoxib (CeleBREX) 200 mg capsule Take 1 capsule (200 mg total) by mouth 2 (two) times a day.60 capsule 5 ??? lisinopril (PRINIVIL,ZESTRIL) 10 mg tablet TAKE ONE TABLET BY MOUTH ONCE DAILY DIRECTED 30 tablet 3 ??? melatonin-lemon balm leaf extr 10-1 mg tablet 2 tab daily ??? methylPREDNISolone (MEDROL DOSEPACK) 4 mg Dosepack Take as directed on package. 21 tablet 0 ??? pravastatin (PRAVACHOL) 10 mg tablet Take by mouth. No current facility-administered medications for this visit. Assessment/Plan Diagnoses and all orders for this visit: Neck pain (M54.2) (Primary) Comments: Refer to ortho spine Try Flexeril for night time relief Other orders - cyclobenzaprine (FLEXERIL) 10 mg tablet; Take 1 tablet (10 mg total) by mouth 3 (three) times a day as needed for muscle spasms. - lisinopril (PRINIVIL,ZESTRIL) 10 mg tablet; Take 1 tablet (10 mg total) by mouth daily. - amLODIPine (NORVASC) 5 mg tablet; Take 1 tablet (5 mg total) by mouth daily. - pravastatin (PRAVACHOL) 10 mg tablet; Take 1 tablet (10 mg total) by mouth daily. ER ESTIMATOR documented in this encounter Plan of Treatment Scheduled Procedures Name Priority Associated Diagnoses Date/Ti me COLONOSCOPY Colon cancer screening COLONOSCOPY Colon cancer screening documented as of this encounter Visit Diagnoses Diagnosis Neck pain- Primary Cervicalgia documented in this encounter Discontinued Medications Medication Sig Discontinue Reason Start Date End Da te benzonatate (TESSALON) 100 mg capsuleIndications:Coug h Take 1 capsule (100 mg total) by mouth 3 (three) times a day as needed for cough. 07/18/2018 08/15/2018 lisinopril (PRINIVIL,ZESTRIL) 10 mg tablet TAKE ONE TABLET BY MOUTH ONCE DAILY DIRECTED Reorder 07/07/2018 08/15/2018 amLODIPine (NORVASC) 5 mg tablet daily. Reorder 08/12/2016 08/15/2018 pravastatin (PRAVACHOL) 10 mg tablet Take by mouth. Reorder 08/15/2018 documented as of this encounter Care Teams Head Loader Relationship Specialty Start Date End Date Pal Russell MD PCP - General 06/08/17 09/04/21 documented as of this encounter
--- OUTSIDE RECORDS SUMMARY | 2024-06-25 14:01 | XMS_ITS | Encounter Summary ---
Author Organization [facility] Address [address] [place] [address] Phone Care Team Providers Care Rafter Cutting Machine Operator Name Role Phone Pal Russell MD Primary Care Provider [phone] Encounter Details Date Type Department Care Team (Late st Contact Info) Description 07/29/[address] [facility] [address] [place] [address] Pal Russell MD [address] [id number] Social History Tobacco Use Types Packs/Day Years Used Date Smoking Tobacco: Never Sex and Gender Information Value Date Recorded Sex Assigned at Not on file Legal Sex Male 2:[address] Gender Identity Not on file Sexual Orientation Not on file documented as of this encounter Miscellaneous Notes * Telephone Encounter - Concha Jha - 07/29/2018 2:24 PM CST He had x-rays done on Wednesday. Told to call back but can't get a hold of anyone. Calling to see what was going on cause still in a lot of pain & wondering what to do. Please give him a call. MAKER documented in this encounter Plan of Treatment Scheduled Procedures Name Priority Associated Diagnoses Date/Ti me COLONOSCOPY Colon cancer screening COLONOSCOPY Colon cancer screening documented as of this encounter Visit Diagnoses Not on filedocumented in this encounter Care Teams Rafter Cutting Machine Operator Relationship Specialty Start Date End Date Pal Russell MD PCP - General 06/08/17 09/04/21 documented as of this encounter
--- OUTSIDE RECORDS SUMMARY | 2024-06-25 14:01 | XMS_ITS | Encounter Summary ---
Author Organization [facility] Address [address] [place] [address] Phone Care Team Providers Care Material Flow Analyst Name Role Phone Pal Russell MD Primary Care Provider [phone] Reason for Visit * Reason Onset Date Comments Test Results 07/22/2018 Encounter Details Date Type Department Care Team (Late st Contact Info) Description 07/22/2018 Telephone [facility] [address] [place] [address] Pal Russell MD [address] [address] Test Results Social History Tobacco Use Types Packs/Day Years Used Date Smoking Tobacco: Never Sex and Gender Information Value Date Recorded Sex Assigned at Not on file Legal Sex Male 2:28 AM FIRE TRUCK DRIVER Gender Identity Not on file Sexual Orientation Not on file documented as of this encounter Miscellaneous Notes * Telephone Encounter - Pattie Morton MA - 07/22/2018 1:25 PM CST LVM FOR PT TO CONTACT THE OFFICE. TRUCK DRIVER * Telephone Encounter - Pattie Morton MA - 07/22/2018 1:24 PM CST ----- Message from Kelin Collier NP sent at 07/22/2018 8:15 AM FIRE TRUCK DRIVER ----- There are mild degenerative changes to the cervical and thoracic spine. At C4-C5 there was mild disc bulge. There is no evidence of any soft tissue abnormality to explain the bump on the low neck. TRUCK DRIVER documented in this encounter Plan of Treatment Scheduled Procedures Name Priority Associated Diagnoses Date/Ti me COLONOSCOPY Colon cancer screening COLONOSCOPY Colon cancer screening documented as of this encounter Visit Diagnoses Not on filedocumented in this encounter Care Teams Material Flow Analyst Relationship Specialty Start Date End Date Pal Russell MD PCP - General 06/08/17 09/04/21 documented as of this encounter
--- OUTSIDE RECORDS SUMMARY | 2024-06-25 14:01 | XMS_ITS | Encounter Summary ---
Author Organization [facility] Address [address] [place] [address] Phone Care Team Providers Care Associate Manager Affiliate Marketing Name Role Phone Pal Russell MD Primary Care Provider [phone] Encounter Details Date Type Department Care Team (Late st Contact Info) Description 07/27/2018 3:25 PM PIPE FOREMAN Lab [address] [address] Social History Tobacco Use Types Packs/Day Years Used Date Smoking Tobacco: Never Sex and Gender Information Value Date Recorded Sex Assigned at Not on file Legal Sex Male 2:28 AM PIPE FOREMAN Gender Identity Not on file Sexual Orientation Not on file documented as of this encounter Plan of Treatment Scheduled Procedures Name Priority Associated Diagnoses Date/Ti me COLONOSCOPY Colon cancer screening COLONOSCOPY Colon cancer screening documented as of this encounter Visit Diagnoses Not on filedocumented in this encounter Care Teams Associate Manager Affiliate Marketing Relationship Specialty Start Date End Date Pal Russell MD PCP - General 06/08/17 09/04/21 documented as of this encounter
--- OUTSIDE RECORDS SUMMARY | 2024-06-25 14:01 | XMS_ITS | Encounter Summary ---
Author Organization [facility] Address [address] [place] [address] Phone Care Team Providers Care Cyber Security Manager Name Role Phone Pal Russell MD Primary Care Provider Reason for Visit * Reason Onset Date Comments Procedure question/concern 08/23/2018 Encounter Details Date Type Department Care Team (Late st Contact Info) Description 08/23/2018 Telephone [facility] [address] [place] [address] Pal Russell MD [address] [place] [id number] Procedure question/concern Social History Tobacco Use Types Packs/Day Years Used Date Smoking Tobacco: Never Sex and Gender Information Value Date Recorded Sex Assigned at Not on file Legal Sex Male 2:28 AM STEEL PICKLER Gender Identity Not on file Sexual Orientation Not on file documented as of this encounter Miscellaneous Notes * Telephone Encounter - Jones Watson - 08/23/2018 1:03 PM CST I called and let him know. L PICKLER * Telephone Encounter - Pal Russell MD - 08/23/2018 11:23 AM CST Well, try reducing it to every other day or every third day. If it is not helping things, he shouldnot take L PICKLER * Telephone Encounter - Pattie Morton MA - 08/23/2018 11:10 AM CST Pt asked if he should continue the celebrex. He says he has 5 refills but wanted to check to see before refilling. L PICKLER documented in this encounter Plan of Treatment Scheduled Procedures Name Priority Associated Diagnoses Date/Ti me COLONOSCOPY Colon cancer screening COLONOSCOPY Colon cancer screening documented as of this encounter Visit Diagnoses Not on filedocumented in this encounter Care Teams Cyber Security Manager Relationship Specialty Start Date End Date Pal Russell MD PCP - General 06/08/17 09/04/21 documented as of this encounter
--- OUTSIDE RECORDS SUMMARY | 2024-06-25 14:01 | XMS_ITS | Encounter Summary ---
Author Organization [facility] Address [address] [place] [address] Phone Care Team Providers Care Mounter Sousaphones Name Role Phone Pal Russell MD Primary Care Provider [phone] Encounter Details Date Type Department Care Team (Late st Contact Info) Description 09/01/2018 Telephone [facility] Orthopaedic Surgery [address] [place] [address] Beny Watson MD [address] [place] [address] Social History Tobacco Use Types Packs/Day Years Used Date Smoking Tobacco: Never Smokeless Tobacco: Never Alcohol Use Standard Drinks/Week Comments Yes 0 (1 standard drink = 0.6 oz pur e alcohol) Sex and Gender Information Value Date Recorded Sex Assigned at Not on file Legal Sex Male 2:28 AM DAM TENDER ASSISTANT Gender Identity Not on file Sexual Orientation Not on file documented as of this encounter Miscellaneous Notes * Telephone Encounter - Concha Guzman MA - 09/05/2018 2:07 PM CDT Spoke with [facility] and [facility] Management both services have spoken with their providers and both want an MRI prior to scheduling injection. CT was completed in 06/2018 and the Pain Management providers require an MRI. Additionally, since patient is continuing to have symptoms with increasing pain both groups want the MRI for the patient safety and best outcome. Advised patient of need for MRI, patient was upset and stated that he will just wait as he can't afford an MRI. Patient reports he will let Dr. Russell know that he is unhappy with his inability to an injection timely. * Telephone Encounter - Concha Guzman MA - 09/02/2018 3:35 PM CDT Patient reports that today is a better day than yesterday. Patient reports his pain changes in severity day to day. He reports this has been going on for awhile. Patient reports that the pain is tolerable today. Patient reports that he does not feel that his pain is suffer enough for the emergency room. Patient wants to move forward with injection with Pain Management. Seferino Wall contacted, left message asking her to contact patient to move forward with scheduling of injection * Telephone Encounter - Beny Sinclair MD - 09/02/2018 3:15 PM CDT Since this has already started leave plan in place if anesthesiology is able to see him. However, his pain reported is disproportionate to findings on CT examination if he is confirming intolerable severity and headaches I recommend he go to the emergency department. * Telephone Encounter - Concha Guzman MA - 09/02/2018 1:38 PM CDT Prior to sending previous message to Dr. Sinclair, I contacted Pain Management to check their availability for cervical injections. Seferino was checking availability and was going to get back to me. Seferino was able to find an opening for today so, she contacted the patient directly - he reported that would not work so they were looking at Wednesday. Notified patient of Dr. Sinclair's recommendation for MRI and Gabapentin (previously tried Medrol dose tiffanie). Patient reports he isn't interested in obtaining MRI - explained due to severity of patient's sx Dr. Sinclair was recommending the MRI prior to injection Patient states he wants the injection YADIRA as he has had injections in his lower back before and they were extremely helpful. * Telephone Encounter - Beny Sinclair MD - 09/02/2018 12:46 PM CDT OK to offer a 10 day prednisone taper if not already tried and/or no prior problems with oral steroid. Can also try gabapentin 300mg HS to TID titration. Will need to get MRI done prior to cervical spine injection per [facility] radiology. * Telephone Encounter - Concha Guzman MA - 09/02/2018 12:10 PM CDT Spoke with the patient marvin explained that [facility] was not able to do the injection until next week as Dr. Do is out of the office and the only other physician who does the cervical injections requires a recent MRI. Patient reports he had a CT in 06/2018. Unfortunately, the physician requires an MRI. Patient reports his pain continues to increase and is requesting an injection as soon as possible. [facility] can try to work him in next or Wednesday. Patient questions if there is something he can take at night that will help with the pain and not make him tired all day. Patient reports he is taking pain meds, Celebrex, and muscle relaxants from Dr. Russell however, they make him dizzy and tired. He questions the amount of relief he is getting as he is in pain the minute he awakes for sleep. * Telephone Encounter - Elizabeth Willams MA - 09/02/2018 9:49 AM CDT Message sent to [facility] team to expedite calling patient to set up injection. * Telephone Encounter - Dinorah Webb - 09/01/2018 3:39 PM CDT Patient is calling back checking on status of getting neck injection pain is severe * Telephone Encounter - Dinorah Webb - 09/01/2018 9:32 AM CDT Patient has not received the call about getting an neck injection he was to call us if he hadn't gotten a call patient phone is [phone] documented in this encounter Plan of Treatment Scheduled Procedures Name Priority Associated Diagnoses Date/Ti me COLONOSCOPY Colon cancer screening COLONOSCOPY Colon cancer screening documented as of this encounter Visit Diagnoses Not on filedocumented in this encounter Care Teams Mounter Sousaphones Relationship Specialty Start Date End Date Pal Russell MD PCP - General 06/08/17 09/04/21 documented as of this encounter
--- OUTSIDE RECORDS SUMMARY | 2024-06-25 14:02 | XMS_ITS | Encounter Summary ---
Author Organization [facility] Care Team Providers Care General Medical Practitioner Name Role Phone Unavailable Primary Care Provider Unavailabl e Encounter Details Date Type Department Care Team (Latest Contact Info) Description 11/07/2012 - 11/07/2012 11:59 PM CDT Hospital Encounter [facility] Pal Segundo MD [address] [place] [address] Routine general medical examination at a health care facility; Encounter for long-term (current) use of other medications; Chest pain; Coronary atherosclerosis of [place] coronary artery Social History Tobacco Use Types Packs/Day Years Used Date Smoking Tobacco: Never Assessed Sex and Gender Information Value Date Recorded Sex Assigned at Not on file Legal Sex Male 2:28 AM DRUG COORDINATOR Gender Identity Not on file Sexual Orientation Not on file documented as of this encounter Plan of Treatment Scheduled Procedures Name Priority Associated Diagnoses Date/Ti me COLONOSCOPY Colon cancer screening COLONOSCOPY Colon cancer screening documented as of this encounter Procedures Procedure Name Priority Date/Time Associated Diagnosis Comments DISCHARGE LABORATORY CUMULATIVE REPORT Routine 11/07/2012 5:10 PM CDT SERUM TESTOSTERONE Routine 11/07/2012 11 :20 AM CDT SERUM FERRITIN Routine 11/07/2012 11:20 AM CDT documented in this encounter Results * Discharge Laboratory Cumulative Report (11/07/2012 5:10 PM CDT) 11/07/2012 5:10 PM CDT Narrative HISTORICAL RESULTS - 11/07/2012 5:10 PM CDT ? [facility] ? Department of Laboratories ?[facility] [id number] [facility] ?[address] ?[place] [address] Patient Name: ? SEAN TERESA Med Rec Number: ?? [id number] Date of : ?1960 Gender/Age: ? Male 52 years Doctor: ? Pal Russell M.D. Report Date/Time: 11/07/2012 17:10 ?* Abnormal ??C Critical ??f Footnote ??^ Corrected ??L Low ??H High ?i Interp Data ??@ Reference Lab ?Chart Type: Cumulative ? CHEMISTRY ? Hormones ?11/07/2012 ?11:20:00 Test ?Units ??Reference Total Testosterone i ??271 ? ng/dL ??241-827 11/07/2012 11:20:00 Total Testosterone: Interpretive Data Male: ? 241 - 827 ng/dL Female: ??Age 15-75 yrs: ?? 14 - 76 ng/dL Current interpretive data was last revised on 02. ?HEMATOLOGY ?11/07/2012 ?11:20:00 Test ?Units ??Reference Ferritin ??80 ?ng/mL ??[id number] us Historical Provider MD LAB BLOOD ORDERABLES Kiera l Result HISTORICAL RESULTS * Serum testosterone (11/07/2012 11:20 AM CDT) Testosterone 271 241 - 827 ng/dl HISTORICAL RESULTS Comment: Interpretive Data Male: ? 241 - 827 ng/dL Female: ??Age 15-75 yrs: ?? 14 - 76 ng/dL Current interpretive data was last revised on 02. Serum 11/07/2012 11:2 0 AM CDT Pal Russell MD LAB BLOOD ORDERABLES Final Res ult Performing Organization Address City/State/[facility] Co de Phone Number HISTORICAL RESULTS * Serum ferritin (11/07/2012 11:20 AM CDT) Ferritin 80 22 - 322 ng/ml HISTORICAL RESULTS Serum 11/07/2012 11:2 0 AM CDT Pal Russell MD LAB BLOOD ORDERABLES Final Res ult HISTORICAL RESULTS documented in this encounter Visit Diagnoses Diagnosis Routine general medical examination at a health care facility Encounter for long-term (current) use of other medications Chest pain Unspecified chest pain Coronary atherosclerosis of t[place] apache coronary artery documented in this encounter
--- OUTSIDE RECORDS SUMMARY | 2024-06-25 14:02 | XMS_ITS | Encounter Summary ---
Author Organization [facility] Address [address] [place] [address] Care Team Providers Care Ophthalmology Assistant Name Role Phone Unavailable Primary Care Provider Unavailabl e Encounter Details Date Type Department Care Team (Latest Contact Info) Description 12/03/2011 11:16 PM CDT - 12/05/2011 5:43 PM CDT Hospital Encounter [facility] Yara Hale MD [phone] [facility] [place] [address] Other chest pain; Pain in thoracic spine; Low back pain; Leukocytosis; Essential hypertension; Other and unspecified hyperlipidemia; Coronary atherosclerosis of [place] coronary artery Social History Tobacco Use Types Packs/Day Years Used Date Smoking Tobacco: Never Assessed Sex and Gender Information Value Date Recorded Sex Assigned at Not on file Legal Sex Male 2:28 AM TONGUE STITCHER Gender Identity Not on file Sexual Orientation Not on file documented as of this encounter Last Filed Vital Signs Vital Sign Reading Time Taken Comments Blood Pressure 122/81 12/05/2011 3:48 PM CDT Pulse 71 12/05/2011 3:48 PM CDT Temperature - - Respiratory Rate - - Oxygen Saturation - - Inhaled Oxygen Concentration - - Weight 87.1 kg (192 lb) 12/04/2011 4:38 AM CDT Height 172.7 cm (5' 7.99 ) 12/04/2011 4:38 AM CD T Body Mass Index 29.2 12/04/2011 4:38 AM CDT documented in this encounter Plan of Treatment Scheduled Procedures Name Priority Associated Diagnoses Date/Ti me COLONOSCOPY Colon cancer screening COLONOSCOPY Colon cancer screening documented as of this encounter Visit Diagnoses Diagnosis Other chest pain Pain in thoracic spine Low back pain Lumbago Leukocytosis Leukocytosis, unspecified Essential hypertension Unspecified essential hypertension Other and unspecified hyperlipidemia Coronary atherosclerosis of [place] coronary artery documented in this encounter
--- OUTSIDE RECORDS SUMMARY | 2024-06-25 14:02 | XMS_ITS | Encounter Summary ---
Author Organization [facility] Facility Care Team Providers Care Sheep Farm Manager Name Role Phone Unavailable Primary Care Provider Unavailabl e Encounter Details Date Type Department Care Team (Late st Contact Info) Description 01/18/2015 - 01/18/2015 11:59 PM CDT Hospital Encounter [facility] Pal Segundo MD [address] [place] [address] Headache Social History Tobacco Use Types Packs/Day Years Used Date Smoking Tobacco: Never Assessed Sex and Gender Information Value Date Recorded Sex Assigned at Not on file Legal Sex Male 2:28 AM MATERIALS SCHEDULER Gender Identity Not on file Sexual Orientation Not on file documented as of this encounter Plan of Treatment Scheduled Procedures Name Priority Associated Diagnoses Date/Ti me COLONOSCOPY Colon cancer screening COLONOSCOPY Colon cancer screening documented as of this encounter Procedures Procedure Name Priority Date/Time Associated Diagnosis Comments DISCHARGE LABORATORY CUMULATIVE REPORT 01/19/2015 BLOOD CREATININE, POINT OF CARE Routine 01/18/2015 4:07 PM CDT documented in this encounter Results * DISCHARGE LABORATORY CUMULATIVE REPORT (01/19/2015) Narrative 01/19/2015 Ordered by an unspecified provider. us Historical Provider LAB BLOOD ORDERABLES Kiera l Result * Blood creatinine, point of care (01/18/2015 4:07 PM CDT) Creatinine, POC, bld 0.9 0.7 - 1.3 mg/dl HISTORICAL RESULTS Blood specimen (specimen) 01/18/2015 4:07 PM CDT us Pal Russell MD LAB BLOOD ORDERABLES Final Res ult HISTORICAL RESULTS documented in this encounter Visit Diagnoses Diagnosis Headache documented in this encounter
--- OUTSIDE RECORDS SUMMARY | 2024-06-25 14:02 | XMS_ITS | Encounter Summary ---
Author Organization [facility] Address [address] [place] [address] Phone Care Team Providers Care Owner/Operator Name Role Phone Pal Russell MD Primary Care Provider [phone] Reason for Referral * Diagnostic Imaging (Routine) - Closed Specialty Diagnoses / Procedures Referred By Contac t Referred To Contact Radiology Diagnoses Neck pain without injury Procedures CT Cervical Thoracic Spine WO Contrast Kelin Collier NP Phone: tel: fax: [address] [address] Referral ID Status Reason Start Date Expiration Date Visits Re quested Visits Authorized [id number] Closed 07/14/2018 01/23/2020 1 1 ICATION SECURITY CONSULTANT Reason for Visit * Reason Comments Mass middle of the neck, little towards the Lt Encounter Details Date Type Department Care Team (Late st Contact Info) Description 07/14/2018 11:00 AM APPLICATION SECURITY CONSULTANT Office Visit [facility] [address] [place] [address] Kelin Collier NP [address] [place] [address] Neck pain without injury (Primary Dx) Social History Tobacco Use Types Packs/Day Years Used Date Smoking Tobacco: Never Sex and Gender Information Value Date Recorded Sex Assigned at Not on file Legal Sex Male 2:28 AM APPLICATION SECURITY CONSULTANT Gender Identity Not on file Sexual Orientation Not on file documented as of this encounter Last Filed Vital Signs Vital Sign Reading Time Taken Comments Blood Pressure 140/100 07/14/2018 11:13 AM APPLICATION SECURITY CONSULTANT Pulse 95 07/14/2018 11:13 AM APPLICATION SECURITY CONSULTANT Temperature 36.8 ??C (98.3 ??F) 07/14/2018 11:[address] Respiratory Rate - - Oxygen Saturation - - Inhaled Oxygen Concentration - - Weight 99.8 kg (220 lb) 07/14/2018 11:13 AM APPLICATION SECURITY CONSULTANT Height - - Body Mass Index 33.45 06/17/2017 10:50 AM APPLICATION SECURITY CONSULTANT documented in this encounter Ordered Prescriptions Prescription Sig Dispense Quantity Refills Last Filled Start Date End Date predniSONE (DELTASONE) 10 mg tabletIndications: Neck pain without injury Take 6 tabs (60mg) daily for 2 days, then take 5 tabs (50mg) daily for 2 days. Continue to decrease by 1 tab (10mg) every 2 days until gone. 42 tablet 07/14/2018 9 documented in this encounter Progress Notes * Kelin Collier, BLANCA - 07/14/2018 11:00 AM CST Images from the original note were not included. Subjective/Objective Patient ID: Sean Ritter is a 57 y.o. male with a history of hypertension, hyperlipidemia, depression, snoring, headache, back pain Chief Complaint Mass (middle of the neck, little towards the Lt) HPI Last office visit 05/2017. 3 months ago started with neck pain. The pain is on the right side of the neck and radiates around the ear. He saw a chiropractor who said he needed to see the doctor. He has a high pain tolerance .The pain is constant. Tried massage but it didn't help. The pain is excessive at times. Some radiculopathy to the arms, mainly left. There is a popping sensation that occurs frequently. Hypertension: Still taking medications as ordered. Not working on low sodium diet, no weight loss. Rarely exercises. Review of Systems Musculoskeletal: Positive for neck pain. Physical Exam Constitutional: He is oriented to [...] are normal. Musculoskeletal: Normal range of motion. Cervical back: He exhibits tenderness, deformity and pain. Back: Neurological: He is alert and oriented to person, place, and time. Skin: Skin is warm and dry. Capillary refill takes less than 2 seconds. Psychiatric: He has a normal mood and affect. His behavior is normal. Vitals reviewed. Vitals BP 140/100 Pulse 95 Temp 36.8 ??C (98.3 ??F) Wt 99.8 kg (220 lb) BMI 33.45 kg/m?? Current Outpatient Prescriptions Medication Sig Dispense Refill ??? amLODIPine (NORVASC) 5 mg tablet daily. ??? aspirin 325 mg tablet Take 325 mg by mouth. ??? lisinopril (PRINIVIL,ZESTRIL) 10 mg tablet TAKE ONE TABLET BY MOUTH ONCE DAILY DIRECTED 30 tablet 3 ??? melatonin-lemon balm leaf extr 10-1 mg tablet 2 tab daily ??? pravastatin (PRAVACHOL) 10 mg tablet Take by mouth. No current facility-administered medications for this visit. Assessment/Plan Diagnoses and all orders for this visit: Neck pain without injury (M54.2) (Primary) - CT Cervical Thoracic Spine WO Contrast; Future - predniSONE (DELTASONE) 10 mg tablet; Take 6 tabs (60mg) daily for 2 days, then take 5 tabs (50mg)daily for 2 days. Continue to decrease by 1 tab (10mg) every 2 days until gone. Will need to follow up with Dr. Russell for management of hypertension and further management. ICATION SECURITY CONSULTANT documented in this encounter Plan of Treatment Scheduled Procedures Name Priority Associated Diagnoses Date/Ti me COLONOSCOPY Colon cancer screening COLONOSCOPY Colon cancer screening documented as of this encounter Results * CT Cervical Thoracic Spine WO Contrast (07/21/2018 1:15 PM APPLICATION SECURITY CONSULTANT) Anatomical Region Laterality Modality Spine N/A Computed Tomogra phy 07/21/2018 4:05 PM APPLICATION SECURITY CONSULTANT Impressions 07/21/2018 6:06 PM APPLICATION SECURITY CONSULTANT 1. ??Moderate degenerative changes of the cervical spine. 2. ??Mild degenerative changes of the thoracic spine. Dictated by: Ayush Antoine M.D. Electronically signed by: Tanvi Haas M.D. Narrative 07/21/2018 6:06 PM APPLICATION SECURITY CONSULTANT EXAMINATION: CT of the cervical spine without contrast CT of the thoracic spine without contrast HISTORY: Neck pain. TECHNIQUE: CT of the cervical and thoracic spine was performed according to standard protocol without intravenous contrast. COMPARISON: None available FINDINGS: CERVICAL SPINE: The alignment of the cervical spine is normal. There is no acute fracture. Vertebral bodies are normal in height without compression fractures. Intervertebral disk heights are normal. The craniocervical junction is normal. Limited views of the skull base appear normal. The sphenoid sinus is well aerated. No soft tissue abnormality is identified. C2-C3: The disk is normal in configuration. There is moderate bilateral facet arthropathy. There is mild right uncovertebral joint disease resulting in mild right neuroforaminal stenosis. There is no spinal canal stenosis. C3-C4: Posterior disc osteophytes with severe right and mild left facet arthrosis and moderate right and mild left uncovertebral arthrosis results in moderate right and mild left neuroforaminal stenosis without significant spinal canal stenosis. C4-C5: ??There is mild disc bulge. There is moderate right and mild left facet arthropathy. There is mild bilateral uncovertebral joint disease. There is no neuroforaminal stenosis. There is no spinal canal stenosis. C5-C6: Posterior disc osteophytes, severe left and moderate right uncovertebral arthrosis, and mild bilateral facet arthrosis results in severe left and moderate right neuroforaminal stenosis and mild spinal canal stenosis. C6-C7: ??There is minimal disc bulge. There is mild bilateral facet arthropathy, greater on the right. There is mild bilateral uncovertebral joint disease. There is mild right neuroforaminal stenosis. There is no spinal canal stenosis. C7-T1: ??The disk is normal in configuration. There is mild bilateral facet arthropathy. There is no uncovertebral joint disease. There is no neuroforaminal stenosis. There is no spinal canal stenosis. THORACIC SPINE: There are 12 rib-bearing thoracic vertebra. The alignment of the thoracic spine is normal. There is no acute fracture. Vertebral bodies are normal in height without compression fractures. Intervertebral disk heights are normal. There is multilevel facet arthrosis, moderate at T8-T9 resulting in moderate bilateral neuroforaminal stenosis, and mild at other levels. There is no soft tissue abnormality. The thoracic aorta is normal. The disks are normal in configuration. There is no facet hypertrophy. There is no neuroforaminal stenosis. There is no spinal canal stenosis. Procedure Note Tanvi Haas MD - 07/21/2018 EXAMINATION: CT of the cervical spine without contrast CT of the thoracic spine without contrast HISTORY: Neck pain. TECHNIQUE: CT of the cervical and thoracic spine was performed according to standard protocol without intravenous contrast. COMPARISON: None available FINDINGS: CERVICAL SPINE: The alignment of the cervical spine is normal. There is no acute fracture. Vertebral bodies are normal in height without compression fractures. Intervertebral disk heights are normal. The craniocervical junction is normal. Limited views of the skull base appear normal. The sphenoid sinus is well aerated. No soft tissue abnormality is identified. C2-C3: The disk is normal in configuration. There is moderate bilateral facet arthropathy. There is mild right uncovertebral joint disease resulting in mild right neuroforaminal stenosis. There is no spinal canal stenosis. C3-C4: Posterior disc osteophytes with severe right and mild left facet arthrosis and moderate right and mild left uncovertebral arthrosis results in moderate right and mild left neuroforaminal stenosis without significant spinal canal stenosis. C4-C5: There is mild disc bulge. There is moderate right and mild left facet arthropathy. There is mild bilateral uncovertebral joint disease. There is no neuroforaminal stenosis. There is no spinal canal stenosis. C5-C6: Posterior disc osteophytes, severe left and moderate right uncovertebral arthrosis, and mild bilateral facet arthrosis results in severe left and moderate right neuroforaminal stenosis and mild spinal canal stenosis. C6-C7: There is minimal disc bulge. There is mild bilateral facet arthropathy, greater on the right. There is mild bilateral uncovertebral joint disease. There is mild right neuroforaminal stenosis. There is no spinal canal stenosis. C7-T1: The disk is normal in configuration. There is mild bilateral facet arthropathy. There is no uncovertebral joint disease. There is no neuroforaminal stenosis. There is no spinal canal stenosis. THORACIC SPINE: There are 12 rib-bearing thoracic vertebra. The alignment of the thoracic spine is normal. There is no acute fracture. Vertebral bodies are normal in height without compression fractures. Intervertebral disk heights are normal. There is multilevel facet arthrosis, moderate at T8-T9 resulting in moderate bilateral neuroforaminal stenosis, and mild at other levels. There is no soft tissue abnormality. The thoracic aorta is normal. The disks are normal in configuration. There is no facet hypertrophy. There is no neuroforaminal stenosis. There is no spinal canal stenosis. IMPRESSION: 1. Moderate degenerative changes of the cervical spine. 2. Mild degenerative changes of the thoracic spine. Dictated by: Ayush Antoine M.D. Electronically signed by: Tanvi Haas M.D. Kelin Collier ANCHOR TACKER IMG CT PROCEDURES Final Result documented in this encounter Visit Diagnoses Diagnosis Neck pain without injury- Primary documented in this encounter Historical Medications * This list may reflect changes made after this encounter. pravastatin (PRAVACHOL) 10 mg tablet Take by mouth. 08/15/2018 melatonin-lemon balm leaf extr 10-1 mg tablet 2 tab daily 01/30/2016 0 aspirin 325 mg tablet Take 325 mg by mouth. 07/27/2018 amLODIPine (NORVASC) 5 mg tablet daily. 08/12/2016 08/15/2018 added in this encounter Care Teams Owner/Operator Relationship Specialty Start Date End Date Pal Russell MD PCP - General 06/08/17 09/04/21 documented as of this encounter
--- OUTSIDE RECORDS SUMMARY | 2024-06-25 14:02 | XMS_ITS | Encounter Summary ---
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
--- OUTSIDE RECORDS SUMMARY | 2024-06-25 14:02 | XMS_ITS | Encounter Summary ---
Author Organization [facility] Care Team Providers Care Show Design Supervisor Name Role Phone Unavailable Primary Care Provider Unavailabl e Encounter Details Date Type Department Care Team (Late st Contact Info) Description 11/24/2012 - 11/24/2012 11:59 PM CDT Hospital Encounter [facility] Monique Segundo MD [address] [place] [address] Chest pain; Chronic ischemic heart disease Social History Tobacco Use Types Packs/Day Years Used Date Smoking Tobacco: Never Assessed Sex and Gender Information Value Date Recorded Sex Assigned at Not on file Legal Sex Male 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 AM 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 Gender Identity Not on file Sexual Orientation Not on file documented as of this encounter Plan of Treatment Scheduled Procedures Name Priority Associated Diagnoses Date/Ti me COLONOSCOPY Colon cancer screening COLONOSCOPY Colon cancer screening documented as of this encounter Procedures Procedure Name Priority Date/Time Associated Diagnosis Comments STRESS ECHO EXERCISE W DOPPLER/CF WO CONTRAST Routine 11/24/2012 12:00 AM CDT documented in this encounter Results * Stress Echo Exercise W Doppler/CF WO Contrast (11/24/2012 12:00 AM CDT) Anatomical Region Laterality Modality Echocardiography 11/24/2012 Narrative 11/24/2012 12:00 AM CDT Patient name: Sean Ritter Date of test: 11/24/2012 Hospital #: [id number] ?Location: [place]. ([place]) Interpreted by: Rowdy Adams MD American Studies Professor: Jolene Jeffers RDCS RN: Mony Gonzalez RN Reason for Test: CP CHRONIC ISCHEMIC HEART DZ Study quality: Technically good Referring Physician: MONIQUE STUART MD Contrast Agent: Definity (1.5cc/8.5cc NS) LV Global Function: Normal left ventricular systolic function. Baseline Echo Comments: Normal LV+RV morphology and function - No wall abnormalities Doppler/CF Comments: No MR seen, No AR seen Baseline HR: 75 Baseline BP: 134/77 Conduction Defects: INCOMPLETE RBBB Resting ECG Comments: Normal sinus rhythm. NSSTWA. Freq PVC Medications: pravastatin, lisinopril Meds held: Peak HR: 164 Peak BP: 160/81 Post-Exercise Comments: Marked increase in the LV and RV contractility, no segmental wall motion abnormalities. The patient exercised for ??11 min. 26 sec. The patient achieved: 164 bpm ??98 % of MPHR ?METS: 13 Exer. Perf: Excellent exercise performance. Test terminated: ??Fatigue. Stress ECG Comments: ??No ischemic changes freq PVC, couplet, triplet ? Summary ? Contrast enhancement was employed after initial imaging due to sub-optimal quality related to co-morbidity defined by patient's body habitus. Excellent exercise [id number]. ??Maximal Exercise Stress Echocardiogram, NEGATIVE for myocardial ischemia. Confirmed on ??11/24/2012 - 12:55:31 by Rowdy Adams MD By signing this report, the attending color sprayer certifies that he or she has personally supervised and interpreted the echocardiogram and has reviewed and or edited and agrees with the written comments contained within the report. Procedure Note Provider, MD Emiliano - 10/20/2016 Patient name: Sean Ritter Date of test: 11/24/2012 Hospital #: [id number] Location: [facility] ([facility]) Interpreted by: Rowdy Adams MD American Studies Professor: Jolene Jeffers RDCS RN: Mony Gonzalez RN Reason for Test: CP CHRONIC ISCHEMIC HEART DZ Study quality: Technically good Referring Physician: MONIQUE STUART MD Contrast Agent: Definity (1.5cc/8.5cc NS) LV Global Function: Normal left ventricular systolic function. Baseline Echo Comments: Normal LV+RV morphology and function - No wall abnormalities Doppler/CF Comments: No MR seen, No AR seen Baseline HR: 75 Baseline BP: 134/77 Conduction Defects: INCOMPLETE RBBB Resting ECG Comments: Normal sinus rhythm. NSSTWA. Freq PVC Medications: pravastatin, lisinopril Meds held: Peak HR: 164 Peak BP: 160/81 Post-Exercise Comments: Marked increase in the LV and RV contractility, no segmental wall motion abnormalities. The patient exercised for 11 min. 26 sec. The patient achieved: 164 bpm 98 % of MPHR METS: 13 Exer. Perf: Excellent exercise performance. Test terminated: Fatigue. Stress ECG Comments: No ischemic changes freq PVC, couplet, triplet Summary Contrast enhancement was employed after initial imaging due to sub-optimal quality related to co-morbidity defined by patient's body habitus. Excellent exercise [id number]. Maximal Exercise Stress Echocardiogram, NEGATIVE for myocardial ischemia. Confirmed on 11/24/2012 - 12:55:31 by Rowdy Adams MD By signing this report, the attending color sprayer certifies that he or she has personally supervised and interpreted the echocardiogram and has reviewed and or edited and agrees with the written comments contained within the report. [facility] Provider CV ECHO PROCEDURES Final Result documented in this encounter Visit Diagnoses Diagnosis Chest pain Unspecified chest pain Chronic ischemic heart disease Unspecified chronic ischemic heart disease documented in this encounter
--- OUTSIDE RECORDS SUMMARY | 2024-06-25 14:02 | XMS_ITS | Encounter Summary ---
Author Organization [facility] Facility Care Team Providers Care Line Maintainer Name Role Phone Unavailable Primary Care Provider Unavailabl e Encounter Details Date Type Department Care Team (Late st Contact Info) Description 01/25/2015 - 01/25/2015 11:59 PM CDT Hospital Encounter [facility] Pal Segundo MD [address] [address] Coronary atherosclerosis; Other and unspecified angina pectoris ([facility]) Social History Tobacco Use Types Packs/Day Years Used Date Smoking Tobacco: Never Assessed Sex and Gender Information Value Date Recorded Sex Assigned at Not on file Legal Sex Male 2:28 AM SOLE CONDITIONER Gender Identity Not on file Sexual Orientation Not on file documented as of this encounter Plan of Treatment Scheduled Procedures Name Priority Associated Diagnoses Date/Ti me COLONOSCOPY Colon cancer screening COLONOSCOPY Colon cancer screening documented as of this encounter Visit Diagnoses Diagnosis Coronary atherosclerosis Coronary atherosclerosis of unspecified type of vessel, jamul or graft Other and unspecified angina pectoris documented in this encounter
--- OUTSIDE RECORDS SUMMARY | 2024-06-25 14:02 | XMS_ITS | Encounter Summary ---
Author Organization [facility] Facility Care Team Providers Care Metal Mixer Name Role Phone Unavailable Primary Care Provider Unavailabl e Encounter Details Date Type Department Care Team (Latest Contact Info) Description 03/18/2016 9:55 AM CDT - 03/18/2016 11:59 PM CDT Hospital Encounter [facility] Pal Segundo MD [address] [address] Atherosclerotic heart disease of [place] coronary artery without angina pectoris; Obstructive sleep apnea; Non-rheumatic tricuspid valve insufficiency Social History Tobacco Use Types Packs/Day Years Used Date Smoking Tobacco: Never Assessed Sex and Gender Information Value Date Recorded Sex Assigned at Not on file Legal Sex Male 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 AM 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 Gender Identity Not on file Sexual Orientation Not on file documented as of this encounter Medications at Time of Discharge melatonin-lemon balm leaf extr 10-1 mg tablet 2 tab daily 01/30/2016 0 documented as of this encounter Plan of Treatment Scheduled Procedures Name Priority Associated Diagnoses Date/Ti me COLONOSCOPY Colon cancer screening COLONOSCOPY Colon cancer screening documented as of this encounter Procedures Procedure Name Priority Date/Time Associated Diagnosis Comments TRANSTHORACIC ECHO (TTE) COMPLETE W DOPPLER/CF WO CONTRAST 03/18/2016 12:00 AM CDT documented in this encounter Results * Transthoracic Echo Complete W Doppler/CF WO Contrast (03/18/2016 12:00 AM CDT) Anatomical Region Laterality Modality Ultrasound Narrative 03/18/2016 12:00 AM CDT Ordered by an unspecified provider. Procedure Note Provider, MD Emiliano - 08/10/2018 Ordered by an unspecified provider. Historical Provider CV ECHO PROCEDURES Final Result documented in this encounter Visit Diagnoses Diagnosis Atherosclerotic heart disease of [place] coronary artery without angina pectoris Obstructive sleep apnea Obstructive sleep apnea (adult) (pediatric) Non-rheumatic tricuspid valve insufficiency documented in this encounter
--- OUTSIDE RECORDS SUMMARY | 2024-06-25 14:02 | XMS_ITS | Encounter Summary ---
Author Organization [facility] Facility Care Team Providers Care Wiener Packer Name Role Phone Unavailable Primary Care Provider Unavailabl e Encounter Details Date Type Department Care Team (Late st Contact Info) Description 01/13/2016 6:00 AM CDT - 01/13/2016 11:59 PM T Hospital Encounter [facility] Pal Segundo MD [address] [address] Social History Tobacco Use Types Packs/Day Years Used Date Smoking Tobacco: Never Assessed Sex and Gender Information Value Date Recorded Sex Assigned at Not on file Legal Sex Male 2:28 AM SENIOR SOFTWARE QA ANALYST Gender Identity Not on file Sexual Orientation Not on file documented as of this encounter Plan of Treatment Scheduled Procedures Name Priority Associated Diagnoses Date/Ti me COLONOSCOPY Colon cancer screening COLONOSCOPY Colon cancer screening documented as of this encounter Visit Diagnoses Not on filedocumented in this encounter
--- OUTSIDE RECORDS SUMMARY | 2024-06-25 14:02 | XMS_ITS | Encounter Summary ---
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 WIN MEADOWS M.D. FINAL REPORT The radiology attending physician has personally reviewed this study, and has reviewed and/or edited this written report and agrees with it. ACC# ??Date Time ??Exam [id number] Jun 17, 2016 12:50:00 [id number] MPI SPECT Multiple EXAMINATION: ?MYOCARDIAL IMAGING (REST AND PHARMACOLOGIC-STRESS/SPECT DATE OF STUDY: 06/17/2016 RADIOPHARMACEUTICAL: Rest: ??8.6 mCi ??Tc-99m tetrofosmin i.v. Pharmacologic Stress: ??37.1 mCi ??Tc-99m tetrofosmin i.v. HISTORY: ??55-year-old man with with mild coronary artery disease and catheterization performed in 2007, hyperlipidemia, hypertension, family history of heart disease, and obstructive sleep apnea who presents with chest pain. ??Evaluate for ischemia. ??The electrocardiogram during infusion of the pharmacologic agent today was negative for ischemia. FINDINGS: Standard myocardial perfusion images were obtained after resting tracer injection. ??Subsequently, an intravenous infusion of regadenoson was performed under the supervision of attending staff from the Cardiovascular Division. ??Patient did not walk. ??Standard myocardial perfusion images were obtained after tracer injection at the peak effect of the drug. ?? No prior study is available for comparison. There is normal distribution of activity in the left and right ventricular myocardium on both rest and pharmacologic stress images. Gated post-stress images demonstrate normal left ventricular wall thickening. ??The left ventricular volume is normal and the left ventricular ejection fraction is 55% (normal >45%). IMPRESSION: ? 1. ??Normal rest and pharmacologic-stress myocardial perfusion. 2. ??Normal left ventricular size and systolic function. Dr. Antunez ??also participated in the interpretation of this examination. Requested By: Dictated By: ?? WIN MEADOWS M.D. ??on Jun 17 2016 ??2:33P This document has been electronically signed by: GERARD TRACY M.D. on Jun 17 2016 ??5:23P Procedure Note Provider, MD Emiliano - 10/28/2016 GERARD TRACY M.D. WIN MEADOWS M.D. FINAL REPORT The radiology attending physician has personally reviewed this study, and has reviewed and/or edited this written report and agrees with it. [facility]# Date Time Exam [id number] Jun 17, 2016 12:50:00 [id number] MPI SPECT Multiple EXAMINATION: MYOCARDIAL IMAGING (REST AND PHARMACOLOGIC-STRESS/SPECT DATE OF STUDY: 06/17/2016 RADIOPHARMACEUTICAL: Rest: 8.6 mCi Tc-99m tetrofosmin i.v. Pharmacologic Stress: 37.1 mCi Tc-99m tetrofosmin i.v. HISTORY: 55-year-old man with with mild coronary artery disease and catheterization performed in 2007, hyperlipidemia, hypertension, family history of heart disease, and obstructive sleep apnea who presents with chest pain. Evaluate for ischemia. The electrocardiogram during infusion of the pharmacologic agent today was negative for ischemia. FINDINGS: Standard myocardial perfusion images were obtained after resting tracer injection. Subsequently, an intravenous infusion of regadenoson was performed under the supervision of attending staff from the Cardiovascular Division. Patient did not walk. Standard myocardial perfusion images were obtained after tracer injection at the peak effect of the drug. No prior study is available for comparison. There is normal distribution of activity in the left and right ventricular myocardium on both rest and pharmacologic stress images. Gated post-stress images demonstrate normal left ventricular wall thickening. The left ventricular volume is normal and the left ventricular ejection fraction is 55% (normal >45%). IMPRESSION: 1. Normal rest and pharmacologic-stress myocardial perfusion. 2. Normal left ventricular size and systolic function. Dr. Antunez also participated in the interpretation of this examination. Requested By: Dictated By: WIN MEADOWS M.D. on Jun 17 2016 2:33P This document has been electronically signed by: GERARD TRACY M.D. on Jun 17 2016 5:23P us Historical Provider MD PRINCESS MILAN PROCEDURES Final R esult * STRESS ECHOCARDIOGRAPHY (06/17/2016) Anatomical Region Laterality Modality N/A Nuclear Medicine Narrative 06/17/2016 Ordered by an unspecified provider. us Historical Provider MD PRINCESS MILAN PROCEDURES Final R esult documented in this encounter Visit Diagnoses Not on filedocumented in this encounter
--- OUTSIDE RECORDS SUMMARY | 2024-06-25 14:02 | XMS_ITS | Encounter Summary ---
Author Organization [facility] Facility Care Team Providers Care Pie Maker Machine Name Role Phone Unavailable Primary Care Provider Unavailabl e Encounter Details Date Type Department Care Team (Late st Contact Info) Description 03/09/2013 10:00 AM CDT - 03/09/2013 11:59 PM CDT Hospital Encounter [facility] Leo Edmond MD [address] [place] [address] Memory loss Social History Tobacco Use Types Packs/Day Years Used Date Smoking Tobacco: Never Assessed Sex and Gender Information Value Date Recorded Sex Assigned at Not on file 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 Gender Identity Not on file Sexual Orientation Not on file documented as of this encounter Plan of Treatment Scheduled Procedures Name Priority Associated Diagnoses Date/Ti me COLONOSCOPY Colon cancer screening COLONOSCOPY Colon cancer screening documented as of this encounter Procedures Procedure Name Priority Date/Time Associated Diagnosis Comments CT FACIAL BONES W CONTRAST Routine 01/18/2015 4:26 PM CDT documented in this encounter Results * CT Sinus Facial Bones W Contrast (01/18/2015 4:26 PM CDT) Anatomical Region Laterality Modality Head and Neck N/A Computed Tomogra phy 01/18/2015 4:26 PM CDT Narrative 01/20/2015 10:26 AM CDT SHASHA REYES M.D. DEE RUIZ M.D. FINAL REPORT The radiology attending physician has personally reviewed this study, and has reviewed and/or edited this written report and agrees with it. ACC# ??Date Time ??Exam [id number] Jan 18, 2015 16:26:[id number] Maxillofacial with cont EXAMINATION: ?? CT of the maxillofacial bones, orbits, and paranasal sinuses without contrast HISTORY: Chronic maxillary pain TECHNIQUE: Computed tomography of the maxillofacial bones, orbits, and paranasal sinuses was performed without contrast according to standard protocol. COMPARISON: None available. FINDINGS: The orbits are normal. The frontal, ethmoid, and sphenoid sinuses are normal. The maxillary sinuses are normal. The ostiomeatal units are open bilaterally. The nasal septum is at midline. No areas of bony erosion are identified. There is a sara bullosa deformity in the left middle turbinate. The remaining maxillofacial bones are unremarkable. The mastoid sinuses are normal. IMPRESSION: ?? No acute abnormalities. No radiographic findings to explain symptoms of chronic maxillary pain. Requested By: Dictated By: ?? DEE RUIZ M.D. ??on Jan 18 2015 ??5:03P This document has been electronically signed by: SHASHA REYES M.D. on Jan ??2014 10:26A [id number] Procedure Note Provider, MD Emiliano - 10/13/2016 SHASHA REYES M.D. DEE RUIZ M.D. FINAL REPORT The radiology attending physician has personally reviewed this study, and has reviewed and/or edited this written report and agrees with it. ACC# Date Time Exam [id number] Jan 18, 2015 16:26:[id number] Maxillofacial with cont EXAMINATION: CT of the maxillofacial bones, orbits, and paranasal sinuses without contrast HISTORY: Chronic maxillary pain TECHNIQUE: Computed tomography of the maxillofacial bones, orbits, and paranasal sinuses was performed without contrast according to standard protocol. COMPARISON: None available. FINDINGS: The orbits are normal. The frontal, ethmoid, and sphenoid sinuses are normal. The maxillary sinuses are normal. The ostiomeatal units are open bilaterally. The nasal septum is at midline. No areas of bony erosion are identified. There is a sara bullosa deformity in the left middle turbinate. The remaining maxillofacial bones are unremarkable. The mastoid sinuses are normal. IMPRESSION: No acute abnormalities. No radiographic findings to explain symptoms of chronic maxillary pain. Requested By: Dictated By: DEE RUIZ M.D. on Jan 18 2015 5:03P This document has been electronically signed by: SHASHA REYES M.D. on Jan 20 2015 10:26A [id number] us Historical Provider MD SÁNCHEZ CT PROCEDURES Final R esult documented in this encounter Visit Diagnoses Diagnosis Memory loss documented in this encounter
--- OUTSIDE RECORDS SUMMARY | 2024-06-25 14:02 | XMS_ITS | Encounter Summary ---
Author Organization [facility] Healthcare Address [address] [place] [address] Care Team Providers Care Vending Machine Host/Hostess Name Role Phone Unavailable Primary Care Provider Unavailabl e Encounter Details Date Type Department Care Team (Late st Contact Info) Description 12/04/2011 10:31 AM CDT - 12/04/2011 11:59 PM CDT Hospital Encounter [facility] Yara Hale MD [phone] [facility] [place] [address] Other and unspecified disc disorder of lumbar region; Thoracic spondylosis without myelopathy Social History Tobacco Use Types Packs/Day Years Used Date Smoking Tobacco: Never Assessed Sex and Gender Information Value Date Recorded Sex Assigned at Not on file 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
--- OUTSIDE RECORDS SUMMARY | 2024-06-25 14:02 | XMS_ITS | Encounter Summary ---
Author Organization 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
--- OUTSIDE RECORDS SUMMARY | 2024-06-25 14:02 | XMS_ITS | Encounter Summary ---
Author Organization [facility] Facility Care Team Providers Care Primer Boxer Name Role Phone Unavailable Primary Care Provider Unavailabl e Encounter Details Date Type Department Care Team (Latest Contact Info) Description 09/19/2010 - 09/19/2010 11:59 PM CDT Hospital Encounter [facility] Pal Segundo MD [address] [address] Laboratory exam ordered as part of routine general medical examination; Coronary atherosclerosis of grindstone coronary artery; Essential hypertension; Pure hypercholesterolemia; Special screening for malignant neoplasm of prostate Social History Tobacco Use Types Packs/Day Years Used Date Smoking Tobacco: Never Assessed Sex and Gender Information Value Date Recorded Sex Assigned at Not on file 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 Gender Identity Not on file Sexual Orientation Not on file documented as of this encounter Plan of Treatment Scheduled Procedures Name Priority Associated Diagnoses Date/Ti me COLONOSCOPY Colon cancer screening COLONOSCOPY Colon cancer screening documented as of this encounter Visit Diagnoses Diagnosis Laboratory exam ordered as part of routine general medical examination Laboratory examination ordered as part of a routine general medical examination Coronary atherosclerosis of grindstone coronary artery Essential hypertension Unspecified essential hypertension Pure hypercholesterolemia Special screening for malignant neoplasm of prostate documented in this encounter
--- OUTSIDE RECORDS SUMMARY | 2024-06-25 14:02 | XMS_ITS | Encounter Summary ---
Author Organization [facility] Facility Care Team Providers Care Pastry Cook Name Role Phone Unavailable Primary Care Provider Unavailabl e Encounter Details Date Type Department Care Team (Latest Contact Info) Description 04/10/2008 6:11 PM CDT - 04/12/2008 12:53 PM CDT Hospital Encounter [facility] Pal Segundo MD [address] [address] Coronary atherosclerosis of [place] coronary artery; Intermediate coronary syndrome (CMS/HCC) (HCC); Cardiac dysrhythmia; Essential hypertension; Other and unspecified hyperlipidemia; Profound impairment, one eye, impairment level not further specified Social History Tobacco Use Types Packs/Day Years Used Date Smoking Tobacco: Never Assessed Sex and Gender Information Value Date Recorded Sex Assigned at Not on file 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 Gender Identity Not on file Sexual Orientation Not on file documented as of this encounter Plan of Treatment Scheduled Procedures Name Priority Associated Diagnoses Date/Ti dc COLONOSCOPY Colon cancer screening COLONOSCOPY Colon cancer screening documented as of this encounter Visit Diagnoses Diagnosis Coronary atherosclerosis of [place] coronary artery Intermediate coronary syndrome (CMS/HCC) (HCC) Intermediate coronary syndrome Cardiac dysrhythmia Unspecified cardiac dysrhythmia Essential hypertension Unspecified essential hypertension Other and unspecified hyperlipidemia Profound impairment, one eye, impairment level not further specified Profound impairment, one eye, Impairment level not further specified documented in this encounter
== END 2024-06-18 14:00 | disposition home or self-care (01) ==
PROVIDERS: Emergency Provider Nurse Practitioner Family
DX: S80.11XA Contusion of right lower leg, initial encounter (principal); I10 Essential (primary) hypertension; Z79.82 Long term (current) use of aspirin; W01.0XXA Fall on same level from slipping, tripping and stumbling without subsequent striking against object, initial encounter
CPT/HCPCS: 73590; 99213; G0463

== ENCOUNTER 2024-11-14 11:49 | Emergency (ER) | payer MEDICARE, SELFPAY ==
--- NOTE | 2024-11-14 12:04 | ED_ITS ---
HPI - Extremity Problem General Stated complaint: swelling rt foot Related Data Home Medications ?Medication ?Instructions ?Recorded ?Confirmed ?Last Taken ?Type aspirin 325 mg tablet 325 mg PO DAILY 09/24/21 02/09/22 Unknown History celecoxib 200 mg capsule 200 mg PO BID 09/24/21 02/09/22 Unknown History metoprolol succinate 100 mg 100 mg PO DAILY 09/24/21 02/09/22 Unknown History tablet,extended release 24 hr pravastatin 10 mg tablet 10 mg PO DAILY 09/24/21 02/09/22 Unknown History amlodipine 5 mg tablet mg 03/08/23 Unknown History Allergies Allergy/AdvReac Type Severity Reaction Status Date / Time No Known Allergies Allergy Verified 06/18/24 13:44 [facility] Past Medical History Medical History (Updated 06/19/24 @ 00:00 by Poli White) COVID-19 03/2021 Arthritis Glaucoma Hypertension High cholesterol Surgical History Surgical History (Updated 03/09/23 @ 20:53 by Asya Cabrera NP) H/O lumbosacral spine surgery Hx of appendectomy Social History Social History (Updated 03/09/23 @ 20:58 by Asya Cabrera NP) Smoking status: Never smoker Alcohol intake: current Alcohol use details: social Substance use type: does not use Gender identity (if verbalized by the patient): Male Discharge Plan Discharge Patient Language: Congolese Prescriptions: No Action celecoxib 200 mg capsule 200 mg PO BID metoprolol succinate 100 mg tablet extended release 24 hr 100 mg PO DAILY pravastatin 10 mg tablet 10 mg PO DAILY aspirin 325 mg Tablet 325 mg PO DAILY amlodipine 5 mg tablet Follow-up/Referrals: UNKNOWN,DOCTOR [Primary Care Provider] -
--- OUTSIDE RECORDS SUMMARY | 2024-11-14 12:04 | XMS_ITS | Clinical Summary ---
Author Organization [facility] Address [address] [place] [phone] Care Team Providers Care Process Coordinator Name Role Phone Kelin Collier NP Primary Care Pro vider Allergies No known active allergies Medications timolol (TIMOPTIC) 0.5 % ophthalmic solution INSTILL 1 DROP INTO RIGHT EYE TWICE DAILY 09/25/19 22 Active aspirin 81 mg chewable tablet Take 1 tablet (81 mg total) by mouth daily Active cyclobenzaprine (FLEXERIL) 10 mg tablet TAKE [...] 05/03/20 23 Active celecoxib (CeleBREX) 200 mg capsuleIndications:Chemical Inspector kevin pain of right knee Take 1 capsule (200 mg total) by mouth 2 (two) times a day 180 capsule 3 08/31/19 25 2025 Active rosuvastatin (CRESTOR) 10 mg tabletIndications:Pure hypercholesterolemia Take 1 tablet (10 mg total) by mouth daily 90 tablet 3 08/31/19 25 2025 Active metoprolol XL (TOPROL-XL) 100 mg 24 hr tabletIndications:Benig n essential HTN Take 1 tablet (100 mg total) by mouth daily 90 tablet 3 08/31/19 25 2025 Active amLODIPine (NORVASC) 10 mg tabletIndications:Stephany n essential HTN Take 1 tablet (10 mg total) by mouth daily 90 tablet 3 08/31/19 25 2025 Active semaglutide (Wegovy) 0.25 mg/0.5 mL auto-injectorIndication s:cardiovascular event risk reduction in obesity Inject 0.25 mg under the skin every 7 days 2 mL 1 08/31/19 25 Active cetirizine (ZyrTEC) 10 mg tablet Take 1 tablet (10 mg total) by mouth daily 30 tablet 11 09/13/19 25 2025 Active azelastine (ASTELIN) 137 mcg (0.1 %) nasal spray Administer 1 spray into each nostril 2 (two) times a day Use in each nostril as directed 30 mL 11 09/13/19 25 Active hydroCHLOROthiazide (HYDRODIURIL) 25 mg tabletIndications:Pedal edema,Benign essential HTN Take 1 tablet (25 mg total) by mouth daily 90 tablet 4 10/03/19 25 2025 Active Active Problems Problem Noted Date Diagnosed Date Colon cancer screening 08/30/2024 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 Assessment & Plan (07/10/2020 11:01 AM OUTPATIENT FACILITY PHYSICAL THERAPIST): We saw a huge spike RIVKA and we increased both meds and he tolerates and they are working. Because he is getting a sleep eval and if Rx started, the BP willlikely further decrease so no increase in meds, he will con to check BP at [facility] Assessment & Plan (06/27/2020 10:50 AM OUTPATIENT FACILITY PHYSICAL THERAPIST): Very sub optimal I am very concerned [...] day Assessment & Plan (06/27/2020 10:51 AM OUTPATIENT FACILITY PHYSICAL THERAPIST): Refill both, he actually not on singulair [...] refill Assessment & Plan (07/27/2018 3:10 PM OUTPATIENT FACILITY PHYSICAL THERAPIST): We will back up here and send for plain XR and refer to PMR The jaw may be TMJ check skull series Obstructive sleep apnea syndrome in adult 2014 Overview (09/30/2017): Description: obstructive and central treated with APAP 4-4, but non compliance an issue so I begged him to get back to sleep center in [facility] Assessment & Plan (04/07/2022 9:46 PM CDT): He needs to follow-up with sleep medicine. Assessment & Plan (01/11/2022 8:21 PM CDT): rec that he follow-up with sleep medicine for follow-up PSG. Assessment & Plan (07/10/2020 10:59 AM OUTPATIENT FACILITY PHYSICAL THERAPIST): Await repeat analysis 07/22 Assessment & Plan (06/27/2020 10:46 AM OUTPATIENT FACILITY PHYSICAL THERAPIST): We will refer and see if a [...] Plan (04/07/2022 9:47 PM CDT): Non obstructive. [facility] in 2007 showed 40% CAD in LAD and 30% in RCA and LCx with slow flow in RCA. - Cont medication management with ASA 81mg every day, rosuvastatin 10mg every day Assessment & Plan (01/11/2022 8:18 PM CDT): [facility] in 2007 showed 40% CAD in LAD and 30% in RCA and LCx with slow flow in RCA. - Cont medication management with ASA 81mg every day, consider changing to high intensity statin pending lipid panel. Assessment & Plan (06/27/2020 10:49 AM OUTPATIENT FACILITY PHYSICAL THERAPIST): Despite the severe HTN there is no [...] been provided to and reviewed with the patient/career development engineer prior to discharge. Cough 11/07/2019 01/11/2022 Overview [...] 01/09/2015 01/11/2022 Chronic low back pain 01/06/20152021 Encounters Date Type Department Care Team Description 10/02/2024 11:11 AM CDT - 10/02/2024 11:59 PM CDT Hospital Encounter [facility] [address] [place] [address] Pedal edema; SOB (shortness of breath); Benign essential HTN Discharge Disposition: Discharge to home or self care 10/02/2024 10:30 AM CDT Office Visit [address] [phone] Kelin Collier NP Pedal edema (Primary Dx); SOB (shortness of breath); Benign essential HTN; Need for pneumococcal 20-valent conjugate vaccination 10/02/[address] [address] Flavia Amin MA 09/15/[address] [facility] Specialty Services [address] [place] [address] Yamel Arambula RN 09/12/2024 10:00 AM CDT Office Visit [facility]) - [facility] [address] [facility] [address] [place] [phone] Mary Agosto NP Postnasal drip (Primary Dx); Bilateral impacted cerumen; Long uvula; Allergic rhinitis, unspecified seasonality, unspecified trigger 09/06/[address] [facility] Advanced [facility] ([facility]) - [facility] [address] [facility] Advanced Medicine 11th [place] [address] [place] [phone] Linda An MS 08/30/2024 9:30 AM CDT Office Visit [address] [address] Kelin Collier NP Encounter for Medicare annual wellness exam (Primary Dx); Postnasal drip; Fatigue, unspecified type; Colon cancer screening; Chronic pain of right knee; Pure hypercholesterolemia; Benign essential HTN; History of non-ST elevation myocardial infarction (NSTEMI); At high risk for cardiovascular disease; Abnormal finding of blood chemistry, unspecified 08/21/[address] [address] Shari Lopez Med Refill (Pt has appt next Wednesday and is requesting enough medication to get to that date. He is out. Rosuvastatin and Amlodipine/) 08/21/2024 Telephone [facility] [address] [place] [address] Kelin Collier NP from Last 3 Months Immunizations Immunization Administration Dates Next Due Flucelvax Influenza Quad 05/03/2019 Influenza, Quadrivalent, Delores l Culture-based MDCK, Preservative Free, Antibiotic Free, Intramuscular 05/03/2019 Influenza, Quadrivalent, Rec ombinant, Egg Free, Preservative Free, Intramuscular 04/07/2022 Influenza, Trivalent, Split, Preservative Free, Intradermal 03/30/2016 Pneumococcal Conjugate Pcv20 10/02/2024 Pneumococcal Polysaccharide PPV23 03/14/2015, Tdap 09/27/2017 Surgical History Surgery Date Site/Laterality Comments AL APPENDECTOMY Appendectomy - (Added by TW Conv) [...] Smokeless Tobacco: Never Tobacco Cessation:Counseling Given: Yes Alcohol Use Standard Drinks/Week Comments Yes 0 [...] on file Legal Sex Male 2:28 AM OUTPATIENT FACILITY PHYSICAL THERAPIST Gender Identity Not on file Sexual Orientation Not on file Obstetrics History Last Filed Vital Signs Vital Sign Reading Time Taken Comments Blood Pressure 128/84 10/02/2024 10:47 AM CDT Pulse 72 10/02/2024 10:47 AM CDT Temperature 36.3 C (97.3 F) 05/03/2023 11:11 AM OUTPATIENT FACILITY PHYSICAL THERAPIST Respiratory Rate 16 03/23/2022 11:27 AM CDT Oxygen Saturation 98% 10/02/2024 10:47 AM CDT Inhaled Oxygen Concentration - - Weight 108 kg (238 lb) 10/02/2024 10:47 AM CDT Height 172.7 cm (5' 8) 09/12/2024 10:09 AM CDT Body Mass Index 36.19 09/12/2024 10:09 AM CDT Plan of Treatment Scheduled Procedures Name Priority Associated Diagnoses Date/Ti me COLONOSCOPY Open Access Colon cancer screening COLONOSCOPY Colon cancer screening COLONOSCOPY Colon cancer screening Health Maintenance Due Date Last Done Comments Colon Cancer Screening-Colonoscopy 1960 Hepatitis B Screening 09/16/1977 Zoster Vaccine (1 of 2) 09/16/2009 Depression Screening 10/28/2022 10/28/2021, 03/02/20 21 Fall Risk Assessment 10/28/2022 10/28/2021, 03/06/20 21 Prostate Cancer Screening-PSA 10/29/2023 10/28/2021 Influenza Vaccine (Season Ended) 2025 04/07/2022, 05/03/2019, 05/03/2019, Additional history exists Well Visit 65+ 08/30/2025 08/30/2024, 04/21, 10/28/2021 DTaP/Tdap/Td Vaccine (2 - Td or Tdap) 09/28/2027 09/27/2017 Hepatitis C Screening Completed 10/28/2021 Pneumococcal vaccine 65+ Completed 025, 03/14/2015, 03/14/2015 Procedures Procedure Name Priority Date/Time Associated Diagnosis Comments PRO B-TYPE NATRIURETIC PEPTIDE Routine 10/02/2024 11:11 AM CDT Pedal edema SOB (shortness of breath) Benign essential HTN COMPREHENSIVE METABOLIC PANEL Routine 10/02/2024 10:56 AM CDT Pedal edema CBC WITH AUTO DIFFERENTIAL Routine 08/30/2024 9:55 AM CDT Pure hypercholesterolemia Benign essential HTN COMPREHENSIVE METABOLIC PANEL Routine 08/30/2024 9:55 AM CDT Pure hypercholesterolemia Benign essential HTN LIPID PANEL Routine 08/30/2024 9:55 AM CDT Pure hypercholesterolemia HEMOGLOBIN A1C Routine 08/30/2024 9:55 AM CDT Fatigue, unspecified type At high risk for cardiovascular disease Abnormal finding of blood chemistry, unspecified HEPATITIS C ANTIBODY Routine 10/28/2021 10:25 AM CDT Encounter for hepatitis C screening test for low risk patient PSA SCREEN Routine 10/28/2021 10:25 AM CDT Prostate cancer screening from Last 3 Months or Most Recently Relevant to Health Maintenance Results * Pro B-type natriuretic peptide (10/02/2024 11:11 AM CDT) NT-proBNP 70 <=300 pg/mL Comment: Interpretive Comments: A. Dyspnea in Acute Care Setting All Ages: < 300 pg/ml, acute heart failure unlikely. < 50 yrs: 300 - 450 pg/ml, further investigation warranted. > 450 pg/ml, acute heart failure likely. 50 - 74 yrs: 300 - 900 pg/ml, further investigation warranted. > 900 pg/ml, acute heart failure likely . > or = 75 yrs: 450 - 1800 pg/ml, further investigation warranted. > 1800 pg/ml, acute heart failure likely. B. Non-acute Setting < 75 yrs < 125 pg/ml, rules out heart failure. > or = 125 pg/ml, further investigation warranted. > or = 75 yrs < 450 pg/ml, rules out heart failure. > or = 450 pg/ml, further investigation [...] Interpretive Data Last Revised Date: 2018. Blood 10/02/2024 11:1 1 AM CDT 10/02/2024 2:52 PM CDT us Kelin Collier RUBBISH COLLECTOR LAB BLOOD ORDERAB LES Final Result [facility] [address] [facility] [place] [address] * Comprehensive metabolic panel (10/02/2024 10:56 AM CDT) Glucose 108 74 - 200 mg/dL [facility] BUN 21 18 - 23 mg/dL [facility] Creatinine 0.9 0.7 - 1.3 mg/dL [facility] eGFR 87 mL/min/1.7 3m2 [facility] BUN/Creat Ratio 24 Ratio [facility] Bilirubin, Total 0.3 0.0 - 1.2 mg/dL [facility] AST (SGOT) 15 0 - 40 U/L [facility] ALT (SGPT) 19 10 - 50 U/L [facility] Alkaline phosphatase 72 40 - 129 U/L [facility] Calcium 10.0 8.8 - 10.2 mg/dL [facility] Sodium 141 135 - 145 mEq/L [facility] Potassium 4.5 3.5 - 5.1 mEq/L [facility] Chloride 106 98 - 107 mEq/L [facility] CO2 24.4 22.0 - 32.0 mEq/L [facility] Anion Gap 10 3 - 12 mEq/L [facility] Total Protein 6.5 6.0 - 8.1 g/dL [facility] Albumin 4.3 3.5 - 5.2 g/dL [facility] Globulin 2.3 g/dL [facility] Albumin/Globulin 1.9 Ratio [facility] Blood 10/02/2024 10:5 6 AM CDT 10/02/2024 11:11 AM CDT Kelin Collier NP LAB BLOOD ORDERAB LES Final Result Performing Organization Address City/[facility]/ZIP Co de Phone Number [facility] [address] [place] [address] * (ABNORMAL) CBC with auto differential (08/30/2024 9:55 AM CDT) [facility] WBC 7.4 3.5 - 10.0 K/uL [facility] RBC 4.49(L) 4.60 - 6.20 M/uL [facility] Hemoglobin 13.9 13.9 - 17.7 g/dL [facility] Hematocrit 39.4 35.0 - 55.0 % [facility] MCV 87.8 75.0 - 100.0 fL [facility] MCH 31.00 25.00 - 35.00 pg [facility] MCHC 35.30 31.00 - 38.00 g/dL [facility] RDW 12.8 11.0 - 16.0 % [facility] Platelets 207 140 - 400 K/uL [facility] MPV 8.8 8.0 - 11.0 fL [facility] Granulocyte, Absolute 4.8 1.2 - 8.0 K/uL [facility] Lymphocyte, Absolute 2.0 0.5 - 5.0 K/uL [facility] Monocyte, Absolute 0.6 0.1 - 1.5 K/uL [facility] Granulocyte, Percentage 65.2 35.0 - 80.0 % [facility] Lymphocyte, Percentage 28.1 15.0 - 50.0 % [facility] Monocyte, Percentage 6.7 2.0 - 15.0 % [facility] Blood 08/30/2024 9:55 AM CDT 08/30/2024 10:10 AM CDT Kelin Collier RUBBISH COLLECTOR LAB BLOOD ORDERAB LES Final Result Performing Organization Address City/[facility]/ZIP Co de Phone Number [facility] [address] [place] [address] * Hemoglobin A1c (08/30/2024 9:55 AM CDT) Pathologist [facility] HBA1C 6.1 5.0 - 6.3 % [facility] Comment: Interpretive Comment: Normal: 4.5 - 5.6 Pre-Diabetes: 5.7 - 6.4 Diabetes is: 6.5 Ranges based on ADA Guidelines Blood 08/30/2024 9:55 AM CDT 08/30/2024 10:10 AM CDT Kelin Collier RUBBISH COLLECTOR LAB BLOOD ORDERAB LES Final Result Performing Organization Address [facility] Co de Phone Number [facility] [address] [place] [address] * Lipid panel (08/30/2024 9:55 AM CDT) [facility] Triglyceride 94 0 - 150 mg/dL [facility] Cholesterol 142 0 - 200 mg/dL [facility] HDL 44 >35 mg/dL [facility] LDL-Calculated 79 mg/dL [facility] CHOL/HDL Risk Ratio 3 Ratio [facility] LDL/HDL Risk Ratio 2 Ratio [facility] Blood 08/30/2024 9:55 AM CDT 08/30/2024 10:10 AM CDT Kelin Collier RUBBISH COLLECTOR LAB BLOOD ORDERAB LES Final Result Performing Organization Address [facility] de Phone Number [facility] [address] [place] [address] * Comprehensive metabolic panel (08/30/2024 9:55 AM CDT) Pathologist [facility] Glucose 117 74 - 200 mg/dL [facility] BUN 18 18 - 23 mg/dL [facility] Creatinine 0.9 0.7 - 1.3 mg/dL [facility] eGFR 87 mL/min/1.7 3m2 [facility] BUN/Creat Ratio 20 Ratio [facility] Bilirubin, Total 0.4 0.0 - 1.2 mg/dL [facility] AST (SGOT) 19 0 - 40 U/L [facility] ALT (SGPT) 27 10 - 50 U/L [facility] Alkaline phosphatase 72 40 - 129 U/L [facility] Calcium 9.0 8.8 - 10.2 mg/dL [facility] Sodium 139 135 - 145 mEq/L [facility] Potassium 4.8 3.5 - 5.1 mEq/L [facility] Chloride 106 98 - 107 mEq/L [facility] CO2 24.4 22.0 - 32.0 mEq/L [facility] Anion Gap 9 3 - 12 mEq/L [facility] Total Protein 6.6 6.0 - 8.1 g/dL [facility] Albumin 4.3 3.5 - 5.2 g/dL [facility] Globulin 2.3 g/dL [facility] Albumin/Globulin 1.9 Ratio [facility] Blood 08/30/2024 9:55 AM CDT 08/30/2024 10:10 AM CDT Kelin Collier NP LAB BLOOD ORDERAB LES Final Result Performing Organization Address [facility]/ZIP Co de Phone Number [facility] [address] [place] [address] * PSA screen (10/28/2021 10:25 AM CDT) PSA, Total 0.6 0.0 - 4.0 ng/mL [facility] Blood specimen (specimen) 10/28/2021 10:25 AM CDT 10/28/2021 10:28 AM CDT Wendi Hawkins MD LAB BLOOD ORDERABLES F inal Result Performing Organization Address City/[facility]/ZIP Co de Phone Number [facility] [address] [place] [address] * Hepatitis C antibody (10/28/2021 10:25 AM CDT) A-HCV II 0.06 Negative <0.90 [facility] Comment: <=0.9 negative 0.9-<1.0 borderline >= 1 positive Blood specimen (specimen) 10/28/2021 10:25 AM CDT 10/28/2021 10:28 AM CDT Wendi Hawkins MD LAB MICROBIOLOGY - GEN ERAL ORDERABLES Final Result [address] [address] from Last 3 Months or Most Recently Relevant to Health Maintenance Insurance MEDICARE MEDICARE Advance Directives For more information, please contact: [phone] * Full Code (Latest Code Status on File) Date Activated Date Inactivated Comments 03/02/2021 10:43 PM 03/06/2021 5:42 PM Care Teams Process Coordinator Relationship Specialty Start Date End Date Kelin Collier NP PCP - General Nurse Practitioner 04/28/23
--- OUTSIDE RECORDS SUMMARY | 2024-11-14 12:04 | XMS_ITS | Clinical Summary ---
Author Organization [facility] Address [address] [place] [address] Phone Care Team Providers Care Anthropology Professor Name Role Phone Pal Russell MD Primary Care Provider [phone] Social History Tobacco Use Types Packs/Day Years [...] Cologuard 09/16/2009 Immunochemical Fecal Occult Blood 09/16/2009 Pneumococcal Immunization (5 0+ years) (1 of 1 - PCV) 09/16/2009 Zoster Immunization (1 of 2) 09/16/2009 Influenza Immunization (#1) 2024 SARS-COV-2 Immunization ( - season) 2024 Respiratory Syncytial Virus (RSV) Immunization (Adult) (1 - 1-dose 75+ series) 09/16/2034 PSA Discussion Completed 07/27/2017 Hepatitis B Immunization [...] Comments PSA DIAGNOSTIC,TOTAL Routine 07/27/2017 5:20 PM SURVEY RESEARCH PROFESSOR Exertional angina (HCC) from Last 3 Months or Most Recently Relevant to Health Maintenance Results * PSA DIAGNOSTIC,TOTAL (07/27/2017 5:20 PM SURVEY RESEARCH PROFESSOR) PSA, TOTAL (PROSTATIC SPECIFIC ANTIGEN) 0.58 0.00 - 4.00 ng/mL 07/27/2017 6:06 PM SURVEY RESEARCH PROFESSOR [facility] Blood specimen (specimen) Venipuncture / Unknown 07/27/2017 5:20 PM SURVEY RESEARCH PROFESSOR 07/27/2017 5:25 PM SURVEY RESEARCH PROFESSOR Narrative [facility] - 07/27/2017 6:06 PM SURVEY RESEARCH PROFESSOR PSA NOTE: The PSA value should be used in conjunction with information available from clinical evaluation and other diagnostic procedures. us Pal Russell MD CHEMISTRY ORDERABLES Final Res ult [facility] [address] [place] [address] from Last 3 Months or Most Recently Relevant to Health Maintenance Insurance MEDICARE Care Teams Anthropology Professor Relationship Specialty Start Date End Date Pal Russell MD [address] [place] [address] [place] [address] PCP - General Internal Medicine 07/27/17
--- OUTSIDE RECORDS SUMMARY | 2024-11-14 12:04 | XMS_ITS | Clinical Summary ---
Author Organization [facility] [employer] Address [address] [place] [address] Care Team Providers Care Ribbon Blocker Name Role Phone Pal Russell MD Primary Care Provider [phone] Source Comments [facility] [employer],non-owned Affiliates and Associated Physician Practices is amultiple site organization consisting of ambulatory clinics and hospital sitesin [place], [place], [place] and [place]. This disclosure is being madepursuant to the Care Everywhere program and may not contain all information available regarding this patient. Last updated 18.[facility] [employer] Allergies No known active allergies Medications * Be aware that medications may not be up to date on this document. Alwaysverify current medications with the patient. PRAVASTATIN SODIUM PO Active aspirin (ASPIRIN) 325 MG tablet Take 325 mg by mouth once daily Active LISINOPRIL PO Active albuterol HFA (PROVENTIL;DARBY CALVIN;PROAIR) 108 (90 BASE) MCG/ACT inhalerIndicatio ns:Acute bronchitis, unspecified organism Inhale 2 puffs by mouth every 4 hours as needed for Shortness of Breath, Wheezing or Cough 1 Inhaler 8 Active benzonatate (TESSALON) 100 MG capsuleIndicatio ns:Acute bronchitis, unspecified organism Take 1 capsule by mouth 3 times daily as needed for Cough 15 capsule 8 Active Social History Tobacco Use Types Packs/Day Years Used Date Smoking Tobacco: Never Smokeless Tobacco: Never Tobacco Cessation:Counseling Given: Yes Sex and Gender Information Value Date Recorded Sex Assigned at Not on file Legal Sex Male 7:45 PM FLUORESCENT LAMP REPLACER Gender Identity Not on file Sexual Orientation Not on file Last Filed Vital Signs Vital Sign Reading Time Taken Comments Blood Pressure 134/80 06/16/2018 11:28 AM FLUORESCENT LAMP REPLACER Pulse 109 06/16/2018 11:28 AM FLUORESCENT LAMP REPLACER Temperature 37.3 C (99.2 F) 06/16/2018 11:28 AM FLUORESCENT LAMP REPLACER Respiratory Rate - - Oxygen Saturation 98% 06/16/2018 11:28 AM FLUORESCENT LAMP REPLACER Inhaled Oxygen Concentration - - Weight 93 kg (205 lb) 06/16/2018 11:28 AM FLUORESCENT LAMP REPLACER Height 172.7 cm (5' 8) 06/16/2018 11:28 AM FLUORESCENT LAMP REPLACER Body Mass Index 31.17 06/16/2018 11:28 AM FLUORESCENT LAMP REPLACER Plan of Treatment Health Maintenance Due Date Last Done Comments COLOGUARD (AGES 45-75) - COL ON CA SCREENING 1959 COLON MONITORING 1959 COLONOSCOPY - COLON CA SCREENING 1959 CT COLONOGRAPHY - COLON CA SCREENING 1959 Colorectal Cancer Screening 1959 FIT - COLON CA SCREENING 1959 FLEX SIG - COLON CA SCREENING 1959 HIV SCREENING 09/16/1974 HEPATITIS C SCREENING 09/12/1977 DTAP/TDAP/TD VACCINES (1 - Tdap) 09/16/1978 PNEUMOCOCCAL VACCINE 50+ (1 of 1 - PCV) 09/16/2009 ZOSTER VACCINE (1 of 2) 09/16/2009 SCREENING FOR DIABETES 06/16/2018 COVID-19 VACCINE (1 - 2023-2 5 season) 2024 DEPRESSION SCREENING 06/21/2024 INFLUENZA VACCINE (Season Ended) 2025 Respiratory Syncytial Virus (RSV) Vaccine Pt: or [...] patient's age to complete this topic MENINGOCOCCAL (Group B) VACC INE SHARED DECISION-MAKING Aged Out No longer eligibl e based on patient's age to complete this topic MENINGOCOCCAL GROUPS A/C/Y/W VACCINE Aged Out No longer eligible b ased on patient's age to complete this topic Insurance MEDICARE MEDICARE Care Teams Ribbon Blocker Relationship Specialty Start Date End Date Pal Russell MD PCP - General Internal Medicine 06/16/18
--- OUTSIDE RECORDS SUMMARY | 2024-11-14 12:04 | XMS_ITS | Referral Summary ---
Author Organization [facility] Address [address] [place] [address] Care Team Providers Care Noodle Maker Name Role Phone Kelin Collier NP Primary Care Pro vider Encounters Date Type Department Care Team Description 10/02/2024 11:11 AM CDT - 10/02/2024 11:59 PM CDT Hospital Encounter [facility] [address] [place] [address] Pedal edema; SOB (shortness of breath); Benign essential HTN Discharge Disposition: Discharge to home or self care 10/02/2024 10:30 AM CDT Office Visit [address] [address] Kelin Collier NP Pedal edema (Primary Dx); SOB (shortness of breath); Benign essential HTN; Need for pneumococcal 20-valent conjugate vaccination 10/02/[address] [address] Flavia Amin MA 09/15/2024 Telephone [facility] Specialty Services [address] [place] [phone] Yamel Arambula, ANTONIO 09/12/2024 10:00 AM CDT Office Visit [facility]) - [facility] [address] [place] [address] Mary Agosto NP Postnasal drip (Primary Dx); Bilateral impacted cerumen; Long uvula; Allergic rhinitis, unspecified seasonality, unspecified trigger 09/06/2024 Telephone [facility] - [facility] [address] 11th [place] [address] [place] [phone] Linda An MS 08/30/2024 9:30 AM CDT Office Visit [address] [address] Kelin Collier NP Encounter for Medicare annual wellness exam (Primary Dx); Postnasal drip; Fatigue, unspecified type; Colon cancer screening; Chronic pain of right knee; Pure hypercholesterolemia; Benign essential HTN; History of non-ST elevation myocardial infarction (NSTEMI); At high risk for cardiovascular disease; Abnormal finding of blood chemistry, unspecified 08/21/[address] [address] Shari Lopez Med Refill (Pt has appt next Wednesday and is requesting enough medication to get to that date. He is out. Rosuvastatin and Amlodipine/) 08/21/[address] [address] Kelin Collier NP from Last 3 Months Allergies No known active allergies Medications timolol [...] 05/03/20 23 Active celecoxib (CeleBREX) 200 mg capsuleIndications:Dealer Card Room kevin pain of right knee Take 1 [...] 25 2025 Active amLODIPine (NORVASC) 10 mg tabletIndications:Benig n essential HTN Take 1 tablet (10 mg total) by mouth daily 90 tablet 3 08/31/19 25 2025 Active semaglutide (Wegovy) 0.25 mg/0.5 mL auto-injectorIndication s:cardiovascular event risk reduction in obesity Inject 0.25 mg under the skin every 7 days 2 mL 1 08/31/19 Active cetirizine (ZyrTEC) 10 mg tablet Take [...] Fregoso) Assessment & Plan (07/10/2020 11:00 AM REHAB OFFICE COORDINATOR): Still symptomatic and has a shoulder eval planned 2/3 Assessment & Plan (06/27/2020 10:56 AM REHAB OFFICE COORDINATOR): Check US and refer straight to ortho [...] obese. Assessment & Plan (07/10/2020 11:01 AM REHAB OFFICE COORDINATOR): We saw a huge spike RIVKA and we increased both meds and he tolerates and they are working. Because he is getting a sleep eval and if Rx started, the BP willlikely further decrease so no increase in meds, he will con to check BP at [facility] Assessment & Plan (06/27/2020 10:50 AM REHAB OFFICE COORDINATOR): Very sub optimal I am very concerned [...] day Assessment & Plan (06/27/2020 10:51 AM REHAB OFFICE COORDINATOR): Refill both, he actually not on singulair [...] refill Assessment & Plan (07/27/2018 3:10 PM REHAB OFFICE COORDINATOR): We will back up here and send for plain XR and refer to PMR The jaw may be TMJ check skull series Obstructive sleep apnea syndrome in adult 2014 Overview (09/30/2017): Description: obstructive and central treated with APAP 4-4, but non compliance an issue so I begged him to get back to sleep center in [facility] Assessment & Plan (04/07/2022 9:46 PM CDT): He needs to follow-up with sleep medicine. Assessment & Plan (01/11/2022 8:21 PM CDT): rec that he follow-up with sleep medicine for follow-up PSG. Assessment & Plan (07/10/2020 10:59 AM REHAB OFFICE COORDINATOR): Await repeat analysis 07/22 Assessment & Plan (06/27/2020 10:46 AM REHAB OFFICE COORDINATOR): We will refer and see if a [...] Plan (04/07/2022 9:47 PM CDT): Non obstructive. LHC in 2007 showed 40% CAD in LAD and 30% in RCA and LCx with slow flow in RCA. - Cont medication management with ASA 81mg every day, rosuvastatin 10mg every day Assessment & Plan (01/11/2022 8:18 PM CDT): [facility] in 2008 showed 40% CAD in LAD and 30% in RCA and LCx with slow flow in RCA. - Cont medication management with ASA 81mg every day, consider changing to high intensity statin pending lipid panel. Assessment & Plan (06/27/2020 10:49 AM REHAB OFFICE COORDINATOR): Despite the severe HTN there is no [...] provided to and reviewed with the patient/care services manager prior to discharge. Cough 11/07/2019 01/11/2022 Overview [...] am suspicious the move to the new [place] has triggered a reaction Also the BYRON-I could be suspect Assessment & Plan (10/18/2019 9:00 PM CDT): Will give a course of singulair 10 Exercise-induced angina (CMS/HCC) 01/09/2015 01/11/2022 Chronic low back pain 01/06/20152021 Immunizations Immunization Administration Dates Next Due Flucelvax Influenza Quad 05/03/2019 Influenza, Quadrivalent, Delores l Culture-based MDCK, Preservative Free, Antibiotic Free, Intramuscular 05/03/2019 Influenza, Quadrivalent, Rec ombinant, Egg Free, Preservative Free, Intramuscular 04/07/2022 Influenza, Trivalent, Split, Preservative Free, Intradermal 03/30/2016 Pneumococcal Conjugate Pcv20 10/02/2024 Pneumococcal Polysaccharide PPV23 03/14/2015, Tdap 09/27/2017 Social [...] on file Legal Sex Male 2:28 AM REHAB OFFICE COORDINATOR Gender Identity Not on file Sexual Orientation Not on file Last Filed Vital Signs Vital Sign Reading Time Taken Comments Blood Pressure 128/84 10/02/2024 10:47 AM CDT Pulse 72 10/02/2024 10:47 AM CDT Temperature 36.3 C (97.3 F) 05/03/2023 11:11 AM REHAB OFFICE COORDINATOR Respiratory Rate 16 03/23/2022 11:27 AM CDT [...] et.al. Eur Heart J. 2006:27:330-337. 2. Giselle RW, Jesus NGUYEN. J. AM Sabrina Cardiol: Cardiovasc Imag. 2009;2: 216- 225. Interpretive Data Last Revised Date: 2018. Blood 10/02/2024 11:1 1 AM CDT 10/02/2024 2:52 PM CDT Kelin Collier VETERINARY BACTERIOLOGIST LAB BLOOD ORDERAB LES Final Result Performing Organization Address City/State/[facility] Co de Phone Number [id number] [facility] Department [place] [address] * Comprehensive metabolic panel (10/02/2024 10:56 AM CDT) Glucose 108 74 - 200 mg/dL [facility] BUN 21 18 - 23 mg/dL [facility] Creatinine 0.9 0.7 - 1.3 mg/dL [facility] eGFR 87 mL/min/1.7 3m2 [facility] BUN/Creat Ratio 24 Ratio [facility] Bilirubin, Total 0.3 0.0 - 1.2 mg/dL [facility] AST (SGOT) 15 0 - 40 U/L [facility] ALT (SGPT) 19 10 - 50 U/L [facility] Alkaline phosphatase 72 40 - 129 U/L [facility] Calcium 10.0 8.8 - 10.2 mg/dL [facility] Sodium 141 135 - 145 mEq/L [facility] Potassium 4.5 3.5 - 5.1 mEq/L [facility] Chloride 106 98 - 107 mEq/L [facility] CO2 24.4 22.0 - 32.0 mEq/L [facility] Anion Gap 10 3 - 12 mEq/L [facility] Total Protein 6.5 6.0 - 8.1 g/dL [facility] Albumin 4.3 3.5 - 5.2 g/dL [facility] Globulin 2.3 g/dL [facility] Albumin/Globulin 1.9 Ratio [facility] Blood 10/02/2024 10:5 6 AM CDT 10/02/2024 11:11 AM CDT Kelin Collier VETERINARY BACTERIOLOGIST LAB BLOOD ORDERAB LES Final Result [facility] [address] [place] [address] * (ABNORMAL) CBC with auto differential (08/30/2024 9:55 AM CDT) WBC 7.4 3.5 - 10.0 K/uL [facility] RBC 4.49(L) 4.60 - 6.20 M/uL [facility] Hemoglobin 13.9 13.9 - 17.7 g/dL [facility] Hematocrit 39.4 35.0 - 55.0 % [facility] MCV 87.8 75.0 - 100.0 fL [facility] MCH 31.00 25.00 - 35.00 pg [facility] MCHC 35.30 31.00 - 38.00 g/dL [facility] RDW 12.8 11.0 - 16.0 % [facility] Platelets 207 140 - 400 K/uL [facility] MPV 8.8 8.0 - 11.0 fL [facility] Granulocyte, Absolute 4.8 1.2 - 8.0 K/uL [facility] Lymphocyte, Absolute 2.0 0.5 - 5.0 K/uL [facility] Monocyte, Absolute 0.6 0.1 - 1.5 K/uL [facility] Granulocyte, Percentage 65.2 35.0 - 80.0 % [facility] Lymphocyte, Percentage 28.1 15.0 - 50.0 % [facility] Monocyte, Percentage 6.7 2.0 - 15.0 % [facility] Blood 08/30/2024 9:55 AM CDT 08/30/2024 10:10 AM CDT Result [facility] Kelin Collier NP LAB BLOOD ORDERAB LES Final Result Performing Organization Address [facility] Co de Phone Number [facility] [address] [place] [address] * Hemoglobin A1c (08/30/2024 9:55 AM CDT) HBA1C 6.1 5.0 - 6.3 % [facility] Comment: Interpretive Comment: Normal: 4.5 - 5.6 Pre-Diabetes: 5.7 - 6.4 Diabetes is: 6.5 Ranges based on ADA Guidelines Blood 08/30/2024 9:55 AM CDT 08/30/2024 10:10 AM CDT Result [facility] Kelin Collier VETERINARY BACTERIOLOGIST LAB BLOOD ORDERAB LES Final Result Performing Organization Address [facility] Co de Phone Number [facility] [address] [place] [address] * Lipid panel (08/30/2024 9:55 AM CDT) Triglyceride 94 0 - 150 mg/dL [facility] Cholesterol 142 0 - 200 mg/dL [facility] HDL 44 >35 mg/dL [facility] LDL-Calculated 79 mg/dL [facility] CHOL/HDL Risk Ratio 3 Ratio [facility] LDL/HDL Risk Ratio 2 Ratio [facility] Blood 08/30/2024 9:55 AM CDT 08/30/2024 10:10 AM CDT Kelin Katelyn Nando VETERINARY BACTERIOLOGIST LAB BLOOD ORDERAB LES Final Result Performing Organization Address City/[facility]/ZIP Co de Phone Number [facility] [address] [place] [address] * Comprehensive metabolic panel (08/30/2024 9:55 AM CDT) Glucose 117 74 - 200 mg/dL [facility] BUN 18 18 - 23 mg/dL [facility] Creatinine 0.9 0.7 - 1.3 mg/dL [facility] eGFR 87 mL/min/1.7 3m2 [facility] BUN/Creat Ratio 20 Ratio [facility] Bilirubin, Total 0.4 0.0 - 1.2 mg/dL [facility] AST (SGOT) 19 0 - 40 U/L [facility] ALT (SGPT) 27 10 - 50 U/L [facility] Alkaline phosphatase 72 40 - 129 U/L [facility] Calcium 9.0 8.8 - 10.2 mg/dL [facility] Sodium 139 135 - 145 mEq/L [facility] Potassium 4.8 3.5 - 5.1 mEq/L [facility] Chloride 106 98 - 107 mEq/L [facility] CO2 24.4 22.0 - 32.0 mEq/L [facility] Anion Gap 9 3 - 12 mEq/L [facility] Total Protein 6.6 6.0 - 8.1 g/dL [facility] Albumin 4.3 3.5 - 5.2 g/dL [facility] Globulin 2.3 g/dL [facility] Albumin/Globulin 1.9 Ratio [facility] Blood 08/30/2024 9:55 AM CDT 08/30/2024 10:10 AM CDT Kelin Collier VETERINARY BACTERIOLOGIST LAB BLOOD ORDERAB LES Final Result Performing Organization Address City/[facility]/ZIP Co de Phone Number [facility] [address] [place] [address] * PSA screen (10/28/2021 10:25 AM CDT) PSA, Total 0.6 0.0 - 4.0 ng/mL [facility] Blood specimen (specimen) 10/28/2021 10:25 AM CDT 10/28/2021 10:28 AM CDT Wendi Hawkins MD LAB BLOOD ORDERABLES F inal Result Performing Organization Address City/[facility] Co de Phone Number [address] [address] * Hepatitis C antibody (10/28/2021 10:25 AM CDT) A-HCV II 0.06 Negative <0.90 [facility] Comment: <=0.9 negative 0.9-<1.0 borderline >= 1 positive Blood specimen (specimen) 10/28/2021 10:25 AM CDT 10/28/2021 10:28 AM CDT Wendi Hawkins MD LAB MICROBIOLOGY - GEN ERAL ORDERABLES Final Result Performing Organization Address [facility] de Phone Number [address] [address] from Last 3 Months or Most Recently Relevant to Health Maintenance Insurance MEDICARE MEDICARE MEDICARE MEDICARE Advance Directives For more information, please contact: [phone] * Full Code (Latest Code Status on File) Date Activated Date Inactivated Comments 03/02/2021 10:43 PM 03/06/2021 5:42 PM Care Teams Noodle Maker Relationship Specialty Start Date End Date Kelin Collier NP PCP - General Nurse Practitioner 04/28/23
--- OUTSIDE RECORDS SUMMARY | 2024-11-14 12:04 | XMS_ITS | Encounter Summary ---
Author Organization [facility] Address [address] [place] [address] Phone Care Team Providers Care Folder Seamer Automatic Name Role Phone Pal Russell MD Primary Care Provider [phone] Wendi Hawkins MD Primary Care Provider Kelin Collier NP Primary Care Pro vider Encounter Details Date Type Department Care Team (Late st Contact Info) Description 08/14/[address] [facility] [address] [place] [address] Scanning, Provider Social History Tobacco Use Types Packs/Day Years Used Date Smoking Tobacco: Never Smokeless Tobacco: Never Alcohol Use Standard Drinks/Week Comments Yes 0 (1 standard drink = 0.6 oz pur e alcohol) Sex and Gender Information Value Date Recorded Sex Assigned at Not on file Legal Sex Male 2:28 AM WEB MASTER Gender Identity Not on file Sexual Orientation Not on file documented as of this encounter Plan of Treatment Scheduled Procedures Name Priority Associated Diagnoses Date/Ti me COLONOSCOPY Open Access Colon cancer screening COLONOSCOPY Colon cancer screening COLONOSCOPY Colon cancer screening documented as of this encounter Procedures Procedure Name Priority Date/Time Associated Diagnosis Comments CARDIOLOGY DOCUMENT SCAN 08/14/2020 2:55 PM WEB MASTER documented in this encounter Results * SCAN - CARDIOLOGY (08/14/2020 2:55 PM WEB MASTER) Anatomical Region Laterality Modality Other us Provider [...] the result is from a facility outside [facility] . 02/25/2021 03/19/2021 04/02/2021 3:05 AM CDT COVID: Recovered Comment:Added based on recent COVID infection. 04/02/2021 05/30/2021 07/31/2021 3:[address] documented as of this encounter Care Teams Folder Seamer Automatic Relationship Specialty Start Date End Date Pal Russell MD PCP - General 06/08/17 09/04/21 Wendi Hawkins MD [address] [place] [address] PCP - General Internal Medicine 09/05/21 04/27/23 Kelin Collier NP [address] [place] [address] PCP - General Nurse Practitioner 04/28/23 documented as of this encounter
[2024-11-14 12:21] VITALS: BP 136/79; PULSE 69; RESP 16; TEMP 36.2; O2SAT 100
== END 2024-11-14 12:28 | disposition left against medical advice (07) ==
PROVIDERS: Emergency Provider Nurse Practitioner Family
DX: Z53.21 Procedure and treatment not carried out due to patient leaving prior to being seen by health care provider (principal)
CPT/HCPCS: 99199

== ENCOUNTER 2024-11-14 17:51 | Emergency (ER) | payer MEDICARE, SELFPAY ==
--- NOTE | ~2024-11-14 | XR_ITS ---
HISTORY: foot pain/swelling COMPARISON: 02/09/2022 TECHNIQUE: 3 views of the right foot were performed FINDINGS: No acute fracture or dislocation is appreciated. Moderate degenerative disease is noted. The base of the fifth metatarsal is intact. Small calcaneal spur is noted. Severe osteoarthritis of the first metatarsal phalangeal joint demonstrating progression from previou s examination in 2021. Mild osteoarthritis of the talonavicular joint. Ossification of the insertion of the Achilles tendon is present. Significant soft tissue swelling of the forefoot is present. IMPRESSION: Significant degenerative disease now with forefoot swelling. No acute or subacute fracture. Reviewed, dictated and finalized at location A.
--- OUTSIDE RECORDS SUMMARY | 2024-11-14 17:54 | XMS_ITS | Clinical Summary ---
Author Organization [facility] [employer] Address [address] [place] [address] Care Team Providers Care Superintendent Overhead Distribution Name Role Phone Pal Russell MD Primary Care Provider [phone] Source Comments [facility] [employer],non-owned Affiliates and Associated Physician Practices is amultiple site organization consisting of ambulatory clinics and hospital sitesin [place], [place], [place] and [place]. This disclosure is being madepursuant to the Care Everywhere program and may not contain all information available regarding this patient. Last updated 18.[facility] [employer] Allergies No known active allergies Medications * [...] on file Legal Sex Male 7:45 PM LEAD PASTOR Gender Identity Not on file Sexual Orientation Not on file Last Filed Vital Signs Vital Sign Reading Time Taken Comments Blood Pressure 134/80 06/16/2018 11:28 AM LEAD PASTOR Pulse 109 06/16/2018 11:28 AM LEAD PASTOR Temperature 37.3 C (99.2 F) 06/16/2018 11:28 AM LEAD PASTOR Respiratory Rate - - Oxygen Saturation 98% 06/16/2018 11:28 AM LEAD PASTOR Inhaled Oxygen Concentration - - Weight 93 kg (205 lb) 06/16/2018 11:28 AM LEAD PASTOR Height 172.7 cm (5' 8) 06/16/2018 11:28 AM LEAD PASTOR Body Mass Index 31.17 06/16/2018 11:28 AM LEAD PASTOR Plan of Treatment Health Maintenance Due Date [...] this topic Insurance MEDICARE MEDICARE Care Teams Superintendent Overhead Distribution Relationship Specialty Start Date End Date Pal Russell MD PCP - General Internal Medicine 06/16/18
--- OUTSIDE RECORDS SUMMARY | 2024-11-14 17:54 | XMS_ITS | Clinical Summary ---
Author Organization [facility] Address [address] [place] [address] Phone Care Team Providers Care Central Office Trouble Shooter Name Role Phone Pal Russell MD Primary Care Provider [phone] Social History Tobacco Use Types Packs/Day Years [...] Comments PSA DIAGNOSTIC,TOTAL Routine 07/27/2017 5:20 PM RN NEW GRAD Exertional angina (HCC) from Last 3 Months or Most Recently Relevant to Health Maintenance Results * PSA DIAGNOSTIC,TOTAL (07/27/2017 5:20 PM RN NEW GRAD) PSA, TOTAL (PROSTATIC SPECIFIC ANTIGEN) 0.58 0.00 - 4.00 ng/mL 07/27/2017 6:06 PM RN NEW GRAD [facility] Blood specimen (specimen) Venipuncture / Unknown 07/27/2017 5:20 PM RN NEW GRAD 07/27/2017 5:25 PM RN NEW GRAD [facility]ative [facility] - 07/27/2017 6:06 PM RN NEW GRAD PSA NOTE: The PSA value should be used in conjunction with information available from clinical evaluation and other diagnostic procedures. us Pal Russell MD CHEMISTRY ORDERABLES Final Res ult [facility] [address] [place] [address] from Last 3 Months or Most Recently Relevant to Health Maintenance Insurance MEDICARE Member Subscriber Plan / Payer (Ef fective 2005-Present) Name:Sean Ritter Member ID:[id number] Relation to Subscriber:Self Name:Sean Ritter Subscriber ID:[id number] Payer ID:[id number] Group ID:Not on file Type:Not on file Address: [facility] [address] [employer] [facility], [facility] [place] [address] Care Teams Central Office Trouble Shooter Relationship Specialty Start Date End Date Pal Russell MD [address] [place] [address] PCP - General Internal Medicine 07/27/17
--- OUTSIDE RECORDS SUMMARY | 2024-11-14 17:55 | XMS_ITS | Encounter Summary ---
Author Organization [facility] Address [address] [place] [address] Phone Care Team Providers Care Tugboat Pilot Name Role Phone Pal Russell MD Primary Care Provider [phone] Wendi Hawkins MD Primary Care Provider Kelin Collier NP Primary Care Pro vider Encounter Details Date Type Department Care Team (Late st Contact Info) Description 08/14/2020 Orders Only [facility] [address] [place] [address] Scanning, Provider Social History Tobacco Use Types Packs/Day Years Used Date Smoking Tobacco: Never Smokeless Tobacco: Never Alcohol Use Standard Drinks/Week Comments Yes 0 (1 standard drink = 0.6 oz pur e alcohol) Sex and Gender Information Value Date Recorded Sex Assigned at Not on file Legal Sex Male 2:28 AM TRANSIT BUS DRIVER Gender Identity Not on file Sexual Orientation Not on file documented as of this encounter Plan of Treatment Scheduled Procedures Name Priority Associated Diagnoses Date/Ti me COLONOSCOPY Open Access Colon cancer screening COLONOSCOPY Colon cancer screening COLONOSCOPY Colon cancer screening documented as of this encounter Procedures Procedure Name Priority Date/Time Associated Diagnosis Comments CARDIOLOGY DOCUMENT SCAN 08/14/2020 2:55 PM TRANSIT BUS DRIVER documented in this encounter Results * SCAN - CARDIOLOGY (08/14/2020 2:55 PM TRANSIT BUS DRIVER) Anatomical Region Laterality Modality Other us Provider [...] the result is from a facility outside [facility] . 02/25/2021 03/19/2021 04/02/2021 3:05 AM CDT COVID: Recovered Comment:Added based on recent COVID infection. 04/02/2021 05/30/2021 07/31/2021 3:[address] documented as of this encounter Care Teams Tugboat Pilot Relationship Specialty Start Date End Date Pal Russell MD PCP - General 06/08/17 09/04/21 Wendi Hawkins MD [address] [place] [address] PCP - General Internal Medicine 09/05/21 04/27/23 Kelin Collier NP [address] [place] [address] PCP - General Nurse Practitioner 04/28/23 documented as of this encounter
--- OUTSIDE RECORDS SUMMARY | 2024-11-14 17:55 | XMS_ITS | Clinical Summary ---
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 Assessment & Plan (07/10/2020 11:01 AM HOTEL YARDPERSON): We saw a huge spike RIVKA and we increased both meds and he tolerates and they are working. Because he is getting a sleep eval and if Rx started, the BP willlikely further decrease so no increase in meds, he will con to check BP at [facility] Assessment & Plan (06/27/2020 10:50 AM HOTEL YARDPERSON): Very sub optimal I am very concerned [...] day Assessment & Plan (06/27/2020 10:51 AM HOTEL YARDPERSON): Refill both, he actually not on singulair [...] refill Assessment & Plan (07/27/2018 3:10 PM HOTEL YARDPERSON): We will back up here and send for plain XR and refer to PMR The jaw may be TMJ check skull series Obstructive sleep apnea syndrome in adult 2014 Overview (09/30/2017): Description: obstructive and central treated with APAP 4-4, but non compliance an issue so I begged him to get back to sleep center in [facility] Assessment & Plan (04/07/2022 9:46 PM CDT): He needs to follow-up with sleep medicine. Assessment & Plan (01/11/2022 8:21 PM CDT): rec that he follow-up with sleep medicine for follow-up PSG. Assessment & Plan (07/10/2020 10:59 AM HOTEL YARDPERSON): Await repeat analysis 07/22 Assessment & Plan (06/27/2020 10:46 AM HOTEL YARDPERSON): We will refer and see if a [...] Plan (04/07/2022 9:47 PM CDT): Non obstructive. [facility] in 2007 showed 40% CAD in LAD and 30% in RCA and LCx with slow flow in RCA. - Cont medication management with ASA 81mg every day, rosuvastatin 10mg every day Assessment & Plan (01/11/2022 8:18 PM CDT): [facility] in 2007 showed 40% CAD in LAD and 30% in RCA and LCx with slow flow in RCA. - Cont medication management with ASA 81mg every day, consider changing to high intensity statin pending lipid panel. Assessment & Plan (06/27/2020 10:49 AM HOTEL YARDPERSON): Despite the severe HTN there is no [...] been provided to and reviewed with the patient/animal daycare provider prior to discharge. Cough 11/07/2019 01/11/2022 Overview [...] - 10/02/2024 11:59 PM CDT Hospital Encounter [facility] [address] [place] [address] Pedal edema; SOB (shortness of breath); Benign essential HTN Discharge Disposition: Discharge to home or self care 10/02/2024 10:30 AM CDT Office Visit [address] [address] Kelin Collier NP Pedal edema (Primary Dx); SOB (shortness of breath); Benign essential HTN; Need for pneumococcal 20-valent conjugate vaccination 10/02/[address] [address] Flavia Amin MA 09/15/2024 Telephone [facility] Specialty Services [address] [place] [address] Yamel Arambula RN 09/12/2024 10:00 AM CDT Office Visit [facility]) - [facility] [address] [facility] Medical Office Building [address] [place] [phone] Mary Agosto NP Postnasal drip (Primary Dx); Bilateral impacted cerumen; Long uvula; Allergic rhinitis, unspecified seasonality, unspecified trigger 09/06/2024 Telephone [facility] Advanced [facility] ([facility]) - [facility] [address] [facility] Advanced Medicine 11th [place] [address] [place] [phone] Linda An MS 08/30/2024 9:30 AM CDT Office Visit [address] [address] Kelin Collier NP Encounter for Medicare annual wellness exam (Primary Dx); Postnasal drip; Fatigue, unspecified type; Colon cancer screening; Chronic pain of right knee; Pure hypercholesterolemia; Benign essential HTN; History of non-ST elevation myocardial infarction (NSTEMI); At high risk for cardiovascular disease; Abnormal finding of blood chemistry, unspecified 08/21/[address] [address] Shari Lopez Med Refill (Pt has appt next Wednesday and is requesting enough medication to get to that date. He is out. Rosuvastatin and Amlodipine/) 08/21/2024 Telephone [facility] [address] [place] [address] Kelin Collier NP from Last [...] 09/27/2017 Surgical History Surgery Date Site/Laterality Comments [place] APPENDECTOMY Appendectomy - (Added by TW Conv) [...] on file Legal Sex Male 2:28 AM HOTEL YARDPERSON Gender Identity Not on file Sexual Orientation Not on file Obstetrics History Last Filed Vital Signs Vital Sign Reading Time Taken Comments Blood Pressure 128/84 10/02/2024 10:47 AM CDT Pulse 72 10/02/2024 10:47 AM CDT Temperature 36.3 C (97.3 F) 05/03/2023 11:11 AM HOTEL YARDPERSON Respiratory Rate 16 03/23/2022 11:27 AM CDT [...] AM CDT 10/02/2024 2:52 PM CDT us Klein Collier ELECTRIC METER TESTER SHOP LAB BLOOD ORDERAB LES Final Result [facility] Department [place] [address] * Comprehensive metabolic panel (10/02/2024 10:56 AM CDT) Glucose 108 74 - 200 mg/dL [facility] BUN 21 18 - 23 mg/dL [facility] Creatinine 0.9 0.7 - 1.3 mg/dL [facility] eGFR 87 mL/min/1.7 3m2 [facility] BUN/Creat Ratio 24 Ratio [facility] Bilirubin, Total 0.3 0.0 - 1.2 mg/dL [facility] AST (SGOT) 15 0 - 40 U/L [facility] ALT (SGPT) 19 10 - 50 U/L [facility] Alkaline phosphatase 72 40 - 129 U/L [facility] Calcium 10.0 8.8 - 10.2 mg/dL [facility] Sodium 141 135 - 145 mEq/L [facility] Potassium 4.5 3.5 - 5.1 mEq/L [facility] Chloride 106 98 - 107 mEq/L [facility] CO2 24.4 22.0 - 32.0 mEq/L [facility] Anion Gap 10 3 - 12 mEq/L [facility] Total Protein 6.5 6.0 - 8.1 g/dL [facility] Albumin 4.3 3.5 - 5.2 g/dL [facility] Globulin 2.3 g/dL [facility] Albumin/Globulin 1.9 Ratio [facility] Blood 10/02/2024 10:5 6 AM CDT 10/02/2024 11:11 AM CDT Kelin Collier NP LAB BLOOD ORDERAB LES Final Result Performing Organization Address City/[facility]/ZIP Co de Phone Number [facility] [address] [place] [address] * (ABNORMAL) CBC with auto differential (08/30/2024 9:55 AM CDT) [facility] WBC 7.4 3.5 - 10.0 K/uL [facility] RBC 4.49(L) 4.60 - 6.20 M/uL [facility] Hemoglobin 13.9 13.9 - 17.7 g/dL [facility] Hematocrit 39.4 35.0 - 55.0 % [facility] MCV 87.8 75.0 - 100.0 fL [facility] MCH 31.00 25.00 - 35.00 pg [facility] MCHC 35.30 31.00 - 38.00 g/dL [facility] RDW 12.8 11.0 - 16.0 % [facility] Platelets 207 140 - 400 K/uL [facility] MPV 8.8 8.0 - 11.0 fL [facility] Granulocyte, Absolute 4.8 1.2 - 8.0 K/uL [facility] Lymphocyte, Absolute 2.0 0.5 - 5.0 K/uL [facility] Monocyte, Absolute 0.6 0.1 - 1.5 K/uL [facility] Granulocyte, Percentage 65.2 35.0 - 80.0 % [facility] Lymphocyte, Percentage 28.1 15.0 - 50.0 % [facility] Monocyte, Percentage 6.7 2.0 - 15.0 % [facility] Blood 08/30/2024 9:55 AM CDT 08/30/2024 10:10 AM CDT Kelin Collier ELECTRIC METER TESTER SHOP LAB BLOOD ORDERAB LES Final Result Performing Organization Address City/[facility]/ZIP Co de Phone Number [facility] [address] [place] [address] * Hemoglobin A1c (08/30/2024 9:55 AM CDT) Pathologist [facility] HBA1C 6.1 5.0 - 6.3 % [facility] Comment: Interpretive Comment: Normal: 4.5 - 5.6 Pre-Diabetes: 5.7 - 6.4 Diabetes is: 6.5 Ranges based on ADA Guidelines Blood 08/30/2024 9:55 AM CDT 08/30/2024 10:10 AM CDT Kelin Collier ELECTRIC METER TESTER SHOP LAB BLOOD ORDERAB LES Final Result Performing Organization Address [facility] Co de Phone Number [facility] [address] [place] [address] * Lipid panel (08/30/2024 9:55 AM CDT) [facility] Triglyceride 94 0 - 150 mg/dL [facility] Cholesterol 142 0 - 200 mg/dL [facility] HDL 44 >35 mg/dL [facility] LDL-Calculated 79 mg/dL [facility] [place] CHOL/HDL Risk Ratio 3 Ratio [facility] LDL/HDL Risk Ratio 2 Ratio [facility] Blood 08/30/2024 9:55 AM CDT 08/30/2024 10:10 AM CDT Kelin Collier ELECTRIC METER TESTER SHOP LAB BLOOD ORDERAB LES Final Result Performing Organization Address [facility] de Phone Number [facility] [address] [place] [address] * Comprehensive metabolic panel (08/30/2024 9:55 AM CDT) Pathologist [facility] Glucose 117 74 - 200 mg/dL [facility] BUN 18 18 - 23 mg/dL [facility] Creatinine 0.9 0.7 - 1.3 mg/dL [facility] eGFR 87 mL/min/1.7 3m2 [facility] BUN/Creat Ratio 20 Ratio [facility] Bilirubin, Total 0.4 0.0 - 1.2 mg/dL [facility] AST (SGOT) 19 0 - 40 U/L [facility] ALT (SGPT) 27 10 - 50 U/L [facility] Alkaline phosphatase 72 40 - 129 U/L [facility] Calcium 9.0 8.8 - 10.2 mg/dL [facility] Sodium 139 135 - 145 mEq/L [facility] Potassium 4.8 3.5 - 5.1 mEq/L [facility] Chloride 106 98 - 107 mEq/L [facility] CO2 24.4 22.0 - 32.0 mEq/L [facility] Anion Gap 9 3 - 12 mEq/L [facility] Total Protein 6.6 6.0 - 8.1 g/dL [facility] Albumin 4.3 3.5 - 5.2 g/dL [facility] Globulin 2.3 g/dL [facility] Albumin/Globulin 1.9 Ratio [facility] Blood 08/30/2024 9:55 AM CDT 08/30/2024 10:10 AM CDT Kelin Collier NP LAB BLOOD ORDERAB LES Final Result Performing Organization Address [facility]/ZIP Co de Phone Number [facility] [address] [place] [address] * PSA screen (10/28/2021 10:25 AM CDT) PSA, Total 0.6 0.0 - 4.0 ng/mL [facility] Blood specimen (specimen) 10/28/2021 10:25 AM CDT 10/28/2021 10:28 AM CDT Wendi Hawkins MD LAB BLOOD ORDERABLES F inal Result Performing Organization Address City/[facility]/ZIP Co de Phone Number [facility] [address] [place] [address] * Hepatitis C antibody (10/28/2021 10:25 AM CDT) A-HCV II 0.06 Negative <0.90 [facility] Comment: <=0.9 negative 0.9-<1.0 borderline >= 1 positive Blood specimen (specimen) 10/28/2021 10:25 AM CDT 10/28/2021 10:28 AM CDT Wendi Hawkins MD LAB MICROBIOLOGY - GEN ERAL ORDERABLES Final Result [address] [address] from Last 3 Months or Most Recently Relevant to Health Maintenance Insurance MEDICARE MEDICARE Advance Directives For more information, please contact: [phone] * Full Code (Latest Code Status on File) Date Activated Date Inactivated Comments 03/02/2021 10:43 PM 03/06/2021 5:42 PM Care Teams Plant Safety Leader Relationship Specialty Start Date End Date Kelin Collier NP PCP - General Nurse Practitioner 04/28/23
--- OUTSIDE RECORDS SUMMARY | 2024-11-14 17:55 | XMS_ITS | Referral Summary ---
Author Organization [facility] Address [address] [place] [id number] Care Team Providers Care Charger Operator Name Role Phone Kelin Collier NP Primary Care Pro vider Encounters Date Type Department Care Team Description 10/02/2024 11:11 AM CDT - 10/02/2024 11:59 PM CDT Hospital Encounter [facility] [address] [place] [address] Pedal edema; SOB (shortness of breath); Benign essential HTN Discharge Disposition: Discharge to home or self care 10/02/2024 10:30 AM CDT Office Visit [address] [address] Kelin Collier NP Pedal edema (Primary Dx); SOB (shortness of breath); Benign essential HTN; Need for pneumococcal 20-valent conjugate vaccination 10/02/[address] [address] Flavia Amin MA 09/15/2024 Telephone [facility] [address] [place] [phone] Yamel Arambula, ANTONIO 09/12/2024 10:00 AM CDT Office Visit [facility]) - [facility] [address] [facility] Medical Office Building [address] [place] [address] Mary Agosto NP Postnasal drip (Primary Dx); Bilateral impacted cerumen; Long uvula; Allergic rhinitis, unspecified seasonality, unspecified trigger 09/06/2024 Telephone [facility] ([facility]) - [facility]NT [address] [facility] [address] [place] [address] [place] [id number] Linda An MS 08/30/2024 9:30 AM CDT Office Visit [address] [address] Kelin Collier NP Encounter for Medicare annual wellness exam (Primary Dx); Postnasal drip; Fatigue, unspecified type; Colon cancer screening; Chronic pain of right knee; Pure hypercholesterolemia; Benign essential HTN; History of non-ST elevation myocardial infarction (NSTEMI); At high risk for cardiovascular disease; Abnormal finding of blood chemistry, unspecified 08/21/[address] [address] Shari Lopez Med Refill (Pt has appt next Wednesday and is requesting enough medication to get to that date. He is out. Rosuvastatin and Amlodipine/) 08/21/[address] [address] Kelin Collier NP from Last [...] 05/03/20 23 Active celecoxib (CeleBREX) 200 mg capsuleIndications:Tipple Supervisor kevin pain of right knee Take 1 [...] Fregoso) Assessment & Plan (07/10/2020 11:00 AM MULTIMEDIA ARTIST): Still symptomatic and has a shoulder eval planned 2/3 Assessment & Plan (06/27/2020 10:56 AM MULTIMEDIA ARTIST): Check US and refer straight to ortho [...] obese. Assessment & Plan (07/10/2020 11:01 AM MULTIMEDIA ARTIST): We saw a huge spike RIVKA and we increased both meds and he tolerates and they are working. Because he is getting a sleep eval and if Rx started, the BP willlikely further decrease so no increase in meds, he will con to check BP at [facility] Assessment & Plan (06/27/2020 10:50 AM MULTIMEDIA ARTIST): Very sub optimal I am very concerned [...] day Assessment & Plan (06/27/2020 10:51 AM MULTIMEDIA ARTIST): Refill both, he actually not on singulair [...] refill Assessment & Plan (07/27/2018 3:10 PM MULTIMEDIA ARTIST): We will back up here and send for plain XR and refer to PMR The jaw may be TMJ check skull series Obstructive sleep apnea syndrome in adult 2014 Overview (09/30/2017): Description: obstructive and central treated with APAP 4-4, but non compliance an issue so I begged him to get back to sleep center in [facility] Assessment & Plan (04/07/2022 9:46 PM CDT): He needs to follow-up with sleep medicine. Assessment & Plan (01/11/2022 8:21 PM CDT): rec that he follow-up with sleep medicine for follow-up PSG. Assessment & Plan (07/10/2020 10:59 AM MULTIMEDIA ARTIST): Await repeat analysis 07/22 Assessment & Plan (06/27/2020 10:46 AM MULTIMEDIA ARTIST): We will refer and see if a [...] Assessment & Plan (01/11/2022 8:18 PM CDT): [facility] in 2008 showed 40% CAD in LAD and 30% in RCA and LCx with slow flow in RCA. - Cont medication management with ASA 81mg every day, consider changing to high intensity statin pending lipid panel. Assessment & Plan (06/27/2020 10:49 AM MULTIMEDIA ARTIST): Despite the severe HTN there is no [...] been provided to and reviewed with the patient/healthcare technician prior to discharge. Cough 11/07/2019 01/11/2022 Overview [...] am suspicious the move [place] the [place] has triggered a reaction Also the BYRON-I [...] on file Legal Sex Male 2:28 AM MULTIMEDIA ARTIST Gender Identity Not on file Sexual Orientation Not on file Last Filed Vital Signs Vital Sign Reading Time Taken Comments Blood Pressure 128/84 10/02/2024 10:47 AM CDT Pulse 72 10/02/2024 10:47 AM CDT Temperature 36.3 C (97.3 F) 05/03/2023 11:11 AM MULTIMEDIA ARTIST Respiratory Rate 16 03/23/2022 11:27 AM CDT [...] CDT 10/02/2024 2:52 PM CDT Kelin Collier BRAND ENGINEER LAB BLOOD ORDERAB LES Final Result Performing Organization Address City/State/[facility] Co de Phone Number KRZYSZTOF [facility] [place] [address] * Comprehensive metabolic panel (10/02/2024 10:56 AM CDT) Glucose 108 74 - 200 mg/dL [facility] BUN 21 18 - 23 mg/dL [facility] Creatinine 0.9 0.7 - 1.3 mg/dL [facility] eGFR 87 mL/min/1.7 3m2 [facility] BUN/Creat Ratio 24 Ratio [facility] Bilirubin, Total 0.3 0.0 - 1.2 mg/dL [facility] AST (SGOT) 15 0 - 40 U/L [facility] ALT (SGPT) 19 10 - 50 U/L [facility] Alkaline phosphatase 72 40 - 129 U/L [facility] Calcium 10.0 8.8 - 10.2 mg/dL [facility] Sodium 141 135 - 145 mEq/L [facility] Potassium 4.5 3.5 - 5.1 mEq/L [facility] Chloride 106 98 - 107 mEq/L [facility] CO2 24.4 22.0 - 32.0 mEq/L [facility] Anion Gap 10 3 - 12 mEq/L [facility] Total Protein 6.5 6.0 - 8.1 g/dL [facility] Albumin 4.3 3.5 - 5.2 g/dL [facility] Globulin 2.3 g/dL [facility] Albumin/Globulin 1.9 Ratio [facility] Blood 10/02/2024 10:5 6 AM CDT 10/02/2024 11:11 AM CDT Kelin Collier BRAND ENGINEER LAB BLOOD ORDERAB LES Final Result [facility] [address] [place] [address] * (ABNORMAL) CBC with auto differential (08/30/2024 9:55 AM CDT) WBC 7.4 3.5 - 10.0 K/uL [facility] RBC 4.49(L) 4.60 - 6.20 M/uL [facility] Hemoglobin 13.9 13.9 - 17.7 g/dL [facility] Hematocrit 39.4 35.0 - 55.0 % [facility] MCV 87.8 75.0 - 100.0 fL [facility] MCH 31.00 25.00 - 35.00 pg [facility] MCHC 35.30 31.00 - 38.00 g/dL [facility] RDW 12.8 11.0 - 16.0 % [facility] Platelets 207 140 - 400 K/uL [facility] MPV 8.8 8.0 - 11.0 fL [facility] Granulocyte, Absolute 4.8 1.2 - 8.0 K/uL [facility] Lymphocyte, Absolute 2.0 0.5 - 5.0 K/uL [facility] Monocyte, Absolute 0.6 0.1 - 1.5 K/uL [facility] Granulocyte, Percentage 65.2 35.0 - 80.0 % [facility] Lymphocyte, Percentage 28.1 15.0 - 50.0 % [facility] Monocyte, Percentage 6.7 2.0 - 15.0 % [facility] Blood 08/30/2024 9:55 AM CDT 08/30/2024 10:10 AM CDT Result [facility] Kelin Collier NP LAB BLOOD ORDERAB LES Final Result Performing Organization Address [facility] Co de Phone Number [facility] [address] [place] [address] * Hemoglobin A1c (08/30/2024 9:55 AM CDT) HBA1C 6.1 5.0 - 6.3 % [facility] Comment: Interpretive Comment: Normal: 4.5 - 5.6 Pre-Diabetes: 5.7 - 6.4 Diabetes is: 6.5 Ranges based on ADA Guidelines Blood 08/30/2024 9:55 AM CDT 08/30/2024 10:10 AM CDT Result [facility] Kelin Collier BRAND ENGINEER LAB BLOOD ORDERAB LES Final Result Performing Organization Address [facility] Co de Phone Number [facility] [address] [place] [address] * Lipid panel (08/30/2024 9:55 AM CDT) Triglyceride 94 0 - 150 mg/dL [facility] Cholesterol 142 0 - 200 mg/dL [facility] HDL 44 >35 mg/dL [facility] LDL-Calculated 79 mg/dL [facility] CHOL/HDL Risk Ratio 3 Ratio [facility] LDL/HDL Risk Ratio 2 Ratio [facility] Blood 08/30/2024 9:55 AM CDT 08/30/2024 10:10 AM CDT Kelin Katelyn Nando BRAND ENGINEER LAB BLOOD ORDERAB LES Final Result Performing Organization Address City/[facility]/ZIP Co de Phone Number [facility] [address] [place] [address] * Comprehensive metabolic panel (08/30/2024 9:55 AM CDT) Glucose 117 74 - 200 mg/dL [facility] BUN 18 18 - 23 mg/dL [facility] Creatinine 0.9 0.7 - 1.3 mg/dL [facility] eGFR 87 mL/min/1.7 3m2 [facility] BUN/Creat Ratio 20 Ratio [facility] Bilirubin, Total 0.4 0.0 - 1.2 mg/dL [facility] AST (SGOT) 19 0 - 40 U/L [facility] ALT (SGPT) 27 10 - 50 U/L [facility] Alkaline phosphatase 72 40 - 129 U/L [facility] Calcium 9.0 8.8 - 10.2 mg/dL [facility] Sodium 139 135 - 145 mEq/L [facility] Potassium 4.8 3.5 - 5.1 mEq/L [facility] Chloride 106 98 - 107 mEq/L [facility] CO2 24.4 22.0 - 32.0 mEq/L [facility] Anion Gap 9 3 - 12 mEq/L [facility] Total Protein 6.6 6.0 - 8.1 g/dL [facility] Albumin 4.3 3.5 - 5.2 g/dL [facility] Globulin 2.3 g/dL [facility] Albumin/Globulin 1.9 Ratio [facility] Blood 08/30/2024 9:55 AM CDT 08/30/2024 10:10 AM CDT Kelin Collier BRAND ENGINEER LAB BLOOD ORDERAB LES Final Result Performing Organization Address City/[facility]/ZIP Co de Phone Number [facility] [address] [place] [address] * PSA screen (10/28/2021 10:25 AM CDT) PSA, Total 0.6 0.0 - 4.0 ng/mL [facility] Blood specimen (specimen) 10/28/2021 10:25 AM CDT 10/28/2021 10:28 AM CDT Wendi Hawkins MD LAB BLOOD ORDERABLES F inal Result Performing Organization Address City/[facility] Co de Phone Number [address] [address] * Hepatitis C antibody (10/28/2021 10:25 AM CDT) A-HCV II 0.06 Negative <0.90 [facility] Comment: <=0.9 negative 0.9-<1.0 borderline >= 1 positive Blood specimen (specimen) 10/28/2021 10:25 AM CDT 10/28/2021 10:28 AM CDT Wendi Hawkins MD LAB MICROBIOLOGY - GEN ERAL ORDERABLES Final Result Performing Organization Address [facility] de Phone Number [address] [address] from Last 3 Months or Most Recently Relevant to Health Maintenance Insurance MEDICARE MEDICARE MEDICARE MEDICARE Advance Directives For more information, please contact: [phone] * Full Code (Latest Code Status on File) Date Activated Date Inactivated Comments 03/02/2021 10:43 PM 03/06/2021 5:42 PM Care Teams Charger Operator Relationship Specialty Start Date End Date Kelin Collier NP PCP - General Nurse Practitioner 04/28/23
[2024-11-14 18:00] VITALS: BP 137/67; PULSE 83; RESP 20; TEMP 36.4; O2SAT 98
--- NOTE | 2024-11-14 18:12 | ED.EXTPRO ---
HPI - Extremity Problem General Chief complaint: Extremity Problem,Nontraumatic Stated complaint: swollen rt foot Time Seen by Provider: 11/14/24 18:05 Source: patient Mode of arrival: ambulatory Limitations: no limitations History of Present Illness HPI Narrative: Sean is a 64-year-old male patient presenting to the clinic today with complaints of right foot swelling and pain x2 weeks. He reports he initially injured his right lower extremity 4 months ago when he was trying to get on a dance floor any accidentally kicked the lip of the floor. States he had bruising and swelling to his entire lower extremity and the pain gradually improved over time. States that this pain started reoccurring 2 weeks ago. History of arthritis in his foot and has had injections in the past. Seen his PCP and they ordered him a water pill and he states that this has not alleviated his pain and he still has pain and swelling. Reports some calf pain at times. States he takes a daily aspirin. He is a nonsmoker. He is not on any hormone therapy. No history of blood clotting disorder. Related Data Home Medications ?Medication ?Instructions ?Recorded ?Confirmed ?Last Taken ?Type aspirin 325 mg tablet 325 mg PO DAILY 09/24/21 02/09/22 Unknown History celecoxib 200 mg capsule 200 mg PO BID 09/24/21 02/09/22 Unknown History metoprolol succinate 100 mg 100 mg PO DAILY 09/24/21 02/09/22 Unknown History tablet,extended release 24 hr pravastatin 10 mg tablet 10 mg PO DAILY 09/24/21 02/09/22 Unknown History amlodipine 5 mg tablet mg 03/08/23 Unknown History azelastine 137 mcg (0.1 %) nasal intranasal 11/14/24 Unknown History spray hydrochlorothiazide 25 mg tablet mg 11/14/24 Unknown History rosuvastatin 10 mg tablet mg 11/14/24 Unknown History Allergies Allergy/AdvReac Type Severity Reaction Status Date / Time No Known Allergies Allergy Verified 11/14/24 18:02 [facility] Past Medical History Medical History (Updated 11/14/24 @ 18:35 by Linus Javier APRN) COVID-19 03/2021 Arthritis Glaucoma Hypertension High cholesterol Surgical History Surgical History (Updated 03/09/23 @ 20:53 by Asya Cabrera NP) H/O lumbosacral spine surgery Hx of appendectomy Social History Social History (Updated 03/09/23 @ 20:58 by Asya Cabrera NP) Smoking status: Never smoker Alcohol intake: current Alcohol use details: social Substance use type: does not use Gender identity (if verbalized by the patient): Male Comments At the time of my signature, I reviewed and agree with the nursing past medical, surgical, social, and family history. There is no relevant family history pertinent to the patient complaint. Course Course Emergency Course: Portions of this record may have been created with voice recognition software. Level of Care: Express Care Visit Vital Signs Vital signs: Vital Signs Temperature 36.4 C 11/14/24 18:00 Pulse Rate 83 11/14/24 18:00 Respiratory Rate 20 11/14/24 18:00 Blood Pressure 137/67 11/14/24 18:00 Pulse Oximetry 98 11/14/24 18:00 Oxygen Delivery Room Air 11/14/24 18:00 Temperature 36.4 C 11/14/24 18:00 Pulse Rate 83 11/14/24 18:00 Respiratory Rate 20 11/14/24 18:00 Blood Pressure 137/67 11/14/24 18:00 Pulse Oximetry 98 11/14/24 18:00 Oxygen Delivery Room Air 11/14/24 18:00 Vital signs reviewed MDM - Extremity (Nontraumatic) MDM Narrative Medical decision making narrative: At the time of visit patient is resting comfortably on the exam table. Patient appears to be nontoxic. Diagnostics: X-ray of the right foot was performed Wells criteria for DVT: -1?points Low risk group for DVT. ?Unlikely? according to Wells? DVT studies. Plan: I suspect patient has right foot osteoarthritis/possible tendonitis/plantar fasciitis. Low risk for DVT. Will send in prescription for Medrol Dosepak. Supportive measures were discussed with the patient and they voiced understanding discharge instructions and agrees to treatment plan. Return precautions reviewed Differential Diagnosis Differential diagnosis: Likely gout, cellulitis, superficial thrombophlebitis, lower extremity edema, deep vein thrombosis of lower extremity and other (Plantar fasciitis, osteoarthritis) Imaging Data Radiologist's impression: ITS Impressions Foot X-Ray 11/14/24 18:24 IMPRESSION: Significant degenerative disease now with forefoot swelling. No acute or subacute fracture. Discharge Plan Discharge Clinical Impression: Pain and swelling of toe of right foot, Osteoarthritis, Calcaneal spur of right foot, Plantar fasciitis of right foot Patient Disposition: Home Condition: Stable Instructions: Antibiotic Form, Plantar Fasciitis (ED), Osteoarthritis (ED), Heel Spur (ED), Plantar Fasciitis Exercises (ED) Additional Instructions: Nichols criteria for DVT shows you as a low risk for DVT Rest, ice, elevate, and wear amber wrap as directed Take Medrol Dosepak as prescribed Tylenol/motrin for pain as discussed. Gradually bear weight Follow up with your PCP if symptoms persist more than 1 week. Patient Language: Mauritian Prescriptions: New methylprednisolone [Medrol (Devin)] 4 mg tablets,dose pack See Rx Instructions PO .COMPLEX Qty: 21 0RF Rx Instructions: orally per package directions No Action hydrochlorothiazide 25 mg tablet azelastine 137 mcg (0.1 %) spray,non-aerosol INTRANASAL rosuvastatin 10 mg tablet celecoxib 200 mg capsule 200 mg PO BID metoprolol succinate 100 mg tablet extended release 24 hr 100 mg PO DAILY pravastatin 10 mg tablet 10 mg PO DAILY aspirin 325 mg Tablet 325 mg PO DAILY amlodipine 5 mg tablet Follow-up/Referrals: UNKNOWN,DOCTOR [Primary Care Provider] - Time of Disposition: 18:34 Quality NIHSS Nursing Documentation ED NIHSS nursing documentation: reviewed/agree
== END 2024-11-14 18:47 | disposition home or self-care (01) ==
PROVIDERS: Emergency Provider Nurse Practitioner Family
DX: M19.071 Primary osteoarthritis, right ankle and foot (principal); M77.31 Calcaneal spur, right foot; M72.2 Plantar fascial fibromatosis; I10 Essential (primary) hypertension; E78.00 Pure hypercholesterolemia, unspecified; H40.9 Unspecified glaucoma; Z86.16 Personal history of COVID-19; Z79.82 Long term (current) use of aspirin
CPT/HCPCS: 73630; 99213; G0463